=== PATIENT | male | born 1955 | race Caucasian/White ===

== ENCOUNTER → 2016-09-09 | Outpatient (CLI) | payer OTHER ==
[~2016-09-09] MED LIST: ABILIFY PO; ARIP2TAB3 PO; ASP81CT PO; ASPI-586 PO; ATOR80TA2 PO; Aspirin PO; BP MED; CEFD300C3 PO; CHOL100084 PO; CLPD75T PO; DEXL60CA5 PO; DICL75TA2 PO; DOXY-13 PO; FENO135C PO; FLC100T1 PO; FLUOXETINE HCL 20 MG; FLX20C; FOLI0.4T2 PO; FURO40TA4 PO; HCT25T PO; HYDR-3816 PO; IBUP-792 PO; KCL20TCR PO; MELO-195 PO; METH4TAB PO; METO-272 PO; METO50TA2 PO; MTF500T PO; NF-ESOM40C PO; OLAN1CAP9 PO; OMG1KC PO; PNT40TEC PO; POTA20TA15 PO; PRAV40TA PO; PRAV80TA2 PO; PROBIOTIC1 EACH PO; PROZAC; RNT150T PO; SALSALATE PO; SCR1T PO; SENN1TAB76 PO; SIMVASTATIN; TOPROL; TRAM-21 PO; TRAZ-28 PO; TRAZODONE; TRZ100T PO; TRZ50T; UBID200C2 PO; VITA-185 PO; WELLBUTRIN; [UNRECOGNIZED DRUG - OTHER]; b12; folic acid; motrin; trilipix
--- OUTSIDE RECORDS SUMMARY | 2016-09-09 12:10 | XMS REPORT | Continuity of Care Document ---
Author Author [facility] Organization [facility] Address Unknown Phone Unavailable Support Name Relationship Address Phone YISSEL SHOEMAKER FACP CCDS FACC Caregiver [address], [address] [place] [address] GARCIA RHODES DO Caregiver [address] [place] [address] GAMA ALAS Next Of Kin [address] [facility] [place] [address] Insurance Providers Payer Name Policy Number Subscriber Name Relationship [facility] [facility] [id number] Al Alas 16 Self / Same As Patient Advance Directives Directive Response Recorded Date/Time Advance Directives No 09/18/14 7:54am Health Care Power of Reinforced Concrete Inspector No 09/18/14 7:54am Organ Donor No 09/18/14 7:54am Resuscitation Status Full Code 09/18/14 7:54am Problems Medical Problems Problem Onset Date Status CAD (coronary artery disease) 09/19/2014 Active Medications Medication Dose Route Sig Days/Qty Instructions Order Date Discontinued Date Status Fluoxetine HCl 05/19/08 12/18/10 Discontinued [Fluoxetine Hcl 20MG] 05/19/08 12/18/10 Discontinued Trazodone HCl 05/19/08 12/18/10 Discontinued [Bupropine Sr 150MG] 05/19/08 12/18/10 Discontinued [Trazodone] 12/21/08 12/18/10 Discontinued [Toprol] 12/21/08 12/18/10 Discontinued [Simvastatin] 12/21/08 12/18/10 Discontinued [Prozac] 12/21/08 12/18/10 Discontinued [Wellbutrin] 12/21/08 12/18/10 Discontinued [Bp Med] 12/21/08 12/18/10 Discontinued Pravastatin Sodium 40 Mg PO BEDTIME 12/18/10 03/20/11 Discontinued Olanzapine/Fluoxetine Hcl 6 - 50 Mg PO BEDTIME 12/18/10 09/13/14 Discontinued Folic Acid 0.4 Mg PO DAILY 12/18/10 01/08/11 Discontinued Meloxicam (Mobic) 15 Mg PO DAILY 12/18/10 03/20/11 Discontinued Trazodone HCl 50 Mg PO BEDTIME 12/18/10 Active Metoprolol Succinate 50 Mg PO TWICE A DAY 12/18/10 09/13/14 Discontinued [Abilify] 2 Mg PO DAILY 12/18/10 04/29/12 Discontinued Doxycycline Hyclate 1 Each PO TWICE A DAY 20 Qty x10 days 12/23/1001/08 Discontinued Cefdinir (Omnicef) 2 Each PO DAILY 20 Qty 12/23/10 01/08/11 Discontinued Methylprednisolone 0 PO DIRECTED 12/23/10 01/08/11 Discontinued Olanzapine/Fluoxetine Hcl 1 Each PO BEDTIME 01/08/11 01/08/11 Discontinued Hydrochlorothiazide 25 Mg PO DAILY 03/13/11 Active Potassium Chloride 20 Meq PO DAILY 03/20/11 04/02/12 Discontinued [Salsalate] 1,000 Mg PO EVERY 8HRS 03/20/11 04/02/12 Discontinued Senna 2 Ea PO EVERY 12 HOURS 03/20/11 04/02/12 Discontinued [trilipix] 04/02/12 04/02/12 Discontinued [b12] 04/02/12 04/02/12 Discontinued [folic acid] 04/02/12 04/02/12 Discontinued Aspirin 81 Mg PO MONWEDFRI 04/02/12 09/19/14 Discontinued [motrin] 04/02/12 04/02/12 Discontinued Vitamin B Complex 1,000 Mcg PO DAILY 04/02/12 Active Folic Acid 400 Mcg PO BEDTIME 04/02/12 Active Ranitidine HCl 1 Tab PO DAILY 04/02/12 09/13/14 Discontinued Diclofenac Sodium 75 Mg PO TWICE A DAY 04/02/12 04/28/12 Discontinued Fenofibrate 135 Mg PO BEDTIME 04/02/12 Active Ibuprofen 1 Each PO TWICE A DAY 04/02/12 09/13/14 Discontinued Pravastatin Sodium 40 Mg PO BEDTIME 04/02/12 09/13/14 Discontinued Sucralfate 2 Tsp PO BEFORE MEALS AND AT BEDTIME 1 Qty FOR STOMACH 01/04/13 Discontinued Pantoprazole Sodium 1 Tab PO DAILY 15 Qty 04/02/12 01/04/13 Discontinued Aripiprazole 2 Mg PO DAILY 04/29/12 Active Esomeprazole Magnesium 1 Cap PO DAILY 30 Qty 04/29/12 09/13/14 Discontinued Tramadol Hcl 50 Mg PO TWICE A DAY 04/29/12 Active Dexlansoprazole 60 Mg PO TWICE A DAY 04/29/12 Active Metoprolol Tartrate 50 Mg PO TWICE A DAY 09/13/14 Active Atorvastatin Calcium 80 Mg PO BEDTIME 09/13/14 Active Metformin HCl (Glucophage) 500 Mg PO DAILY 09/13/14 Active Ubidecarenone 200 Mg PO DAILY 09/13/14 Active Cholecalciferol 1,000 Unit PO DAILY 09/13/14 Active Olanzapine/Fluoxetine Hcl 1 Each PO BEDTIME 09/13/14 Active Furosemide (Lasix) 40 Mg PO DAILY 09/13/14 Active Potassium Chloride 40 Meq PO DAILY 09/13/14 Active [Aspirin] 0 Mg PO DAILY 30 Qty 09/19/14 Active Clopidogrel Bisulfate 75 Mg PO DAILY 30 Qty 09/19/14 Active Social History Social History Problem Response Recorded Date/Time Recent Foreign Travel No 09/18/2014 7:57am Smoking Status Former Smoker 09/18/2014 7:54am Query Response Start Date Stop Date Smoking Status Former Smoker Hospital Discharge Instructions No hospital discharge instructions. Plan of Care No plan of care. Functional Status No functional status results. Allergies, Adverse Reactions, Alerts Allergen Type Severity Reaction Status Last Updated No Known Drug Allergies Active 05/19/08 [id number] (HAYFEVER) Allergy Mild Active 12/21/08 Immunizations Name Given Type Date of Pneumonia Vaccine 08/14/08 Historical Date of Influenza Vaccine 05/04/12 Historical influenza, split (incl. purified surface antigen) 09/19/14 Administered Vital Signs Acute Vital Signs Vital Response Date/Time Temperature (Fahrenheit) 97.8 degrees F (97.6 - 99.5) Temperature (Calculated Celsius) 36.26869 degrees C (36.4 - 37.5) Temperature Source Temporal Pulse Rate (adult) 77 bpm (60 - 90) Respiratory Rate 22 bpm (12 - 24) O2 Sat by Pulse Oximetry 94 % (88 - 100) Blood Pressure 137/82 mm Hg Height (Feet) 6 feet Height (Inches) 0.00 inches Height (Calculated Centimeters) 182.666962 cm Weight (Pounds) 268 pounds Weight (Calculated Grams) 517458.756 gm Weight (Calculated Kilograms) 121.891498 kilograms Calculated BMI 36.34 Results Laboratory Results Test Name Result Units Flags Reference Collection Date/Time Result Date/ Time Comments White Blood Count 6.5 10^3/uL 4.3-11.0 09/04/2014 6:48am 09/04/2014 6: 54am Red Blood Count 5.26 10^6/uL 4.35-5.85 09/04/2014 6:48am 09/04/2014 6: 54am Hemoglobin 15.5 G/DL 13.3-17.7 09/04/2014 6:48am 09/04/2014 6:54am Hematocrit 45 % 40-54 09/04/2014 6:48am 09/04/2014 6:54am Mean Corpuscular Volume 86 FL 80-99 09/04/2014 6:48am 09/04/2014 6: 54am Mean Corpuscular Hemoglobin 30 PG 25-34 09/04/2014 6:48am 09/04/2014 6: 54am Mean Corpuscular Hemoglobin Concent 34 G/DL 32-36 09/04/2014 6:48am 04/2015 6:54am Red Cell Distribution Width 13.0 % 10.0-14.5 09/04/2014 6:48am 2014 6:54am Platelet Count 237 10^3/uL 130-400 09/04/2014 6:48am 09/04/2014 6:54am Mean Platelet Volume 8.8 FL 7.4-10.4 09/04/2014 6:48am 09/04/2014 6: 54am Neutrophils (%) (Auto) 64 % 42-75 09/04/2014 6:48am 09/04/2014 6:54am Lymphocytes (%) (Auto) 25 % 12-44 09/04/2014 6:48am 09/04/2014 6:54am Monocytes (%) (Auto) 8 % 0-12 09/04/2014 6:48am 09/04/2014 6:54am Eosinophils (%) (Auto) 2 % 0-10 09/04/2014 6:48am 09/04/2014 6:54am Basophils (%) (Auto) 1 % 0-10 09/04/2014 6:48am 09/04/2014 6:54am Neutrophils # (Auto) 4.1 X 10^3 1.8-7.8 09/04/2014 6:48am 09/04/2014 6: 54am Lymphocytes # (Auto) 1.6 X 10^3 1.0-4.0 09/04/2014 6:48am 09/04/2014 6: 54am Monocytes # (Auto) 0.5 X 10^3 0.0-1.0 09/04/2014 6:48am 09/04/2014 6: 54am Eosinophils # (Auto) 0.1 10^3/uL 0.0-0.3 09/04/2014 6:48am 09/04/2014 6 :54am Basophils # (Auto) 0.0 10^3/uL 0.0-0.1 09/04/2014 6:48am 09/04/2014 6: 54am Sodium Level 139 MMOL/L 135-145 09/04/2014 6:48am 09/04/2014 7:13am Potassium Level 3.9 MMOL/L 3.6-5.0 09/04/2014 6:48am 09/04/2014 7:13am Chloride Level 104 MMOL/L 98-107 09/04/2014 6:48am 09/04/2014 7:13am Carbon Dioxide Level 22 MMOL/L 21-32 09/04/2014 6:48am 09/04/2014 7: 13am Blood Urea Nitrogen 11 MG/DL 7-18 09/04/2014 6:48am 09/04/2014 7:13am Creatinine 1.16 MG/DL 0.60-1.30 09/04/2014 6:48am 09/04/2014 7:13am BUN/Creatinine Ratio 9 09/04/2014 6:48am 09/04/2014 7:13am Estimat Glomerular Filtration Rate > 60 09/04/2014 6:48am 2014 7:13am GFR INTERPRETIVE DATA UNITS FOR ESTIMATED GFR (eGFR): mL/min/1.73 M2 REFERENCE RANGE FOR ESTIMATED GFR (eGFR) eGFR NORMAL eGFR >60 MODERATELY DECREASED eGFR 30-59 SEVERLY DECREASED eGFR 15-29 KIDNEY FAILURE <15 (OR DIALYSIS) Glucose Level 155 MG/DL H 70-105 09/04/2014 6:48am 09/04/2014 7:13am Calcium Level 9.6 MG/DL 8.5-10.1 09/04/2014 6:48am 09/04/2014 7:13am Total Bilirubin 0.4 MG/DL 0.1-1.0 09/04/2014 6:48am 09/04/2014 7:13am Alkaline Phosphatase 63 U/L 40-136 09/04/2014 6:48am 09/04/2014 7:13am Aspartate Amino Transf (AST/SGOT) 25 U/L 5-34 09/04/2014 6:48am 2014 7:13am Alanine Aminotransferase (ALT/SGPT) 28 U/L 0-55 09/04/2014 6:48am 09/04 7:13am Total Protein 7.1 G/DL 6.4-8.2 09/04/2014 6:48am 09/04/2014 7:13am Albumin 3.9 G/DL 3.2-4.5 09/04/2014 6:48am 09/04/2014 7:13am Triglycerides Level 569 MG/DL H <150 09/04/2014 6:48am 09/04/2014 7:13am Cholesterol Level 208 MG/DL H < 200 09/04/2014 6:48am 09/04/2014 7:13am HDL Cholesterol 31 MG/DL L 40-60 09/04/2014 6:48am 09/04/2014 7:13am LDL Cholesterol Direct 107 MG/DL 1-129 09/04/2014 6:48am 09/04/2014 7: 13am VLDL Cholesterol 114 MG/DL H 5-40 09/04/2014 6:48am 09/04/2014 7:13am Thyroid Stimulating Hormone (TSH) 4.00 UIU/ML 0.35-4.94 09/04/2014 6: 48am 09/04/2014 7:33am Free Thyroxine 0.90 NG/DL 0.70-1.48 09/04/2014 6:48am 09/04/2014 7: 33am Hemoglobin A1c 6.3 % H 4.5-6.2 09/04/2014 6:48am 09/04/2014 7:31am Sodium Level 138 MMOL/L 135-145 09/13/2014 7:09/13/2014 7:51am Potassium Level 4.0 MMOL/L 3.6-5.0 09/13/2014 7:09/13/2014 7:51am Chloride Level 100 MMOL/L 98-107 09/13/2014 7:09/13/2014 7:51am Carbon Dioxide Level 25 MMOL/L 21-32 09/13/2014 7:09/13/2014 7: 51am Blood Urea Nitrogen 8 MG/DL 02-0909/13/2014 7:09/13/2014 7:51am Creatinine 1.37 MG/DL H 0.60-1.30 09/13/2014 7:09/13/2014 7:51am BUN/Creatinine Ratio 6 09/13/2014 7:09/13/2014 7:51am Estimat Glomerular Filtration Rate 53 09/13/2014 7:09/13/2014 7:51am GFR INTERPRETIVE DATA UNITS FOR ESTIMATED GFR (eGFR): mL/min/1.73 M2 REFERENCE RANGE FOR ESTIMATED GFR (eGFR) eGFR NORMAL eGFR >60 MODERATELY DECREASED eGFR 30-59 SEVERLY DECREASED eGFR 15-29 KIDNEY FAILURE <15 (OR DIALYSIS) Glucose Level 134 MG/DL H 70-105 09/13/2014 7:09/13/2014 7:51am Calcium Level 9.3 MG/DL 8.5-10.1 09/13/2014 7:09/13/2014 7:51am Total Bilirubin 0.7 MG/DL 0.1-1.0 09/13/2014 7:09/13/2014 7:51am Alkaline Phosphatase 69 U/L 40-136 09/13/2014 7:09/13/2014 7:51am Aspartate Amino Transf (AST/SGOT) 37 U/L H 5-34 09/13/2014 7:2014 7:51am Alanine Aminotransferase (ALT/SGPT) 41 U/L 0-55 09/13/2014 7:09/13 7:51am Total Protein 7.0 G/DL 6.4-8.2 09/13/2014 7:09/13/2014 7:51am Albumin 3.9 G/DL 3.2-4.5 09/13/2014 7:21am 09/13/2014 7:51am White Blood Count 6.1 10^3/uL 4.3-11.0 09/19/2014 4:35am 09/19/2014 4: 53am Red Blood Count 4.67 10^6/uL 4.35-5.85 09/19/2014 4:35am 09/19/2014 4: 53am Hemoglobin 13.7 G/DL 13.3-17.7 09/19/2014 4:35am 09/19/2014 4:53am Hematocrit 41 % 40-54 09/19/2014 4:35am 09/19/2014 4:53am Mean Corpuscular Volume 88 FL 80-99 09/19/2014 4:35am 09/19/2014 4: 53am Mean Corpuscular Hemoglobin 29 PG 25-34 09/19/2014 4:35am 09/19/2014 4: 53am Mean Corpuscular Hemoglobin Concent 33 G/DL 32-36 09/19/2014 4:35am 4:53am Red Cell Distribution Width 13.1 % 10.0-14.5 09/19/2014 4:35am 2014 4:53am Platelet Count 188 10^3/uL 130-400 09/19/2014 4:35am 09/19/2014 4:53am Mean Platelet Volume 9.1 FL 7.4-10.4 09/19/2014 4:35am 09/19/2014 4: 53am Neutrophils (%) (Auto) 72 % 42-75 09/18/2014 7:56am 09/18/2014 8:06am Lymphocytes (%) (Auto) 19 % 12-44 09/18/2014 7:56am 09/18/2014 8:06am Monocytes (%) (Auto) 7 % 0-12 09/18/2014 7:56am 09/18/2014 8:06am Eosinophils (%) (Auto) 1 % 0-10 09/18/2014 7:56am 09/18/2014 8:06am Basophils (%) (Auto) 1 % 0-10 09/18/2014 7:56am 09/18/2014 8:06am Neutrophils # (Auto) 6.2 X 10^3 1.8-7.8 09/18/2014 7:56am 09/18/2014 8: 06am Lymphocytes # (Auto) 1.6 X 10^3 1.0-4.0 09/18/2014 7:56am 09/18/2014 8: 06am Monocytes # (Auto) 0.6 X 10^3 0.0-1.0 09/18/2014 7:56am 09/18/2014 8: 06am Eosinophils # (Auto) 0.1 10^3/uL 0.0-0.3 09/18/2014 7:56am 09/18/2014 8 :06am Basophils # (Auto) 0.0 10^3/uL 0.0-0.1 09/18/2014 7:56am 09/18/2014 8: 06am Prothrombin Time 12.5 SEC 12.2-14.7 09/18/2014 7:56am 09/18/2014 8: 22am INR Comment 1.0 0.8-1.4 09/18/2014 7:56am 09/18/2014 8:22am INTERPRETIVE DATA SUGGESTED THERAPEUTIC RANGE FOR INR'S: VENOUS THROMBOSIS, PULMONARY EMBOLISM, OR PREVENTION OF SYSTEMIC EMBOLISM (EG. IN ATRIAL FIBRILLATION): 2.0 - 3.0 MECHANICAL PROSTHETIC HEART VALVES: 2.5 - 3.5* *NOTE: INR'S UP TO 4.5 MAY BE NECESSARY IN SELECTED GROUPS OF HIGH RISK PATIENTS. SIXTH [place] COLLEGE OF CHEST PHYSICIANS CONSENSUS CONFERENCE ON ANTITHROMBOTIC THERAPY (2000). Activated Partial Thromboplast Time 25 SEC 24-35 09/18/2014 7:56am 8:22am Sodium Level 140 MMOL/L 135-145 09/19/2014 4:35am 09/19/2014 5:13am Potassium Level 4.3 MMOL/L 3.6-5.0 09/19/2014 4:35am 09/19/2014 5:13am Chloride Level 106 MMOL/L 98-107 09/19/2014 4:35am 09/19/2014 5:13am Carbon Dioxide Level 25 MMOL/L 21-32 09/19/2014 4:35am 09/19/2014 5: 13am Blood Urea Nitrogen 12 MG/DL 7-18 09/19/2014 4:35am 09/19/2014 5:13am Creatinine 1.31 MG/DL H 0.60-1.30 09/19/2014 4:35am 09/19/2014 5:13am BUN/Creatinine Ratio 9 09/19/2014 4:35am 09/19/2014 5:13am Estimat Glomerular Filtration Rate 56 09/19/2014 4:35am 09/19/2014 5:13am GFR INTERPRETIVE DATA UNITS FOR ESTIMATED GFR (eGFR): mL/min/1.73 M2 REFERENCE RANGE FOR ESTIMATED GFR (eGFR) eGFR NORMAL eGFR >60 MODERATELY DECREASED eGFR 30-59 SEVERLY DECREASED eGFR 15-29 KIDNEY FAILURE <15 (OR DIALYSIS) Glucose Level 125 MG/DL H 70-105 09/19/2014 4:35am 09/19/2014 5:13am Calcium Level 9.0 MG/DL 8.5-10.1 09/19/2014 4:35am 09/19/2014 5:13am Total Bilirubin 0.7 MG/DL 0.1-1.0 09/18/2014 7:56am 09/18/2014 8:26am Alkaline Phosphatase 67 U/L 40-136 09/18/2014 7:56am 09/18/2014 8:26am Aspartate Amino Transf (AST/SGOT) 24 U/L 5-34 09/18/2014 7:56am 2014 8:26am Alanine Aminotransferase (ALT/SGPT) 29 U/L 0-55 09/18/2014 7:56am 09/18 8:26am Total Protein 7.2 G/DL 6.4-8.2 09/18/2014 7:56am 09/18/2014 8:26am Albumin 4.0 G/DL 3.2-4.5 09/18/2014 7:56am 09/18/2014 8:26am Triglycerides Level 376 MG/DL H <150 09/18/2014 7:56am 09/18/2014 8:26am Cholesterol Level 205 MG/DL H < 200 09/18/2014 7:56am 09/18/2014 8:26am HDL Cholesterol 33 MG/DL L 40-60 09/18/2014 7:56am 09/18/2014 8:26am LDL Cholesterol Direct 115 MG/DL 1-129 09/18/2014 7:56am 09/18/2014 8: 26am VLDL Cholesterol 75 MG/DL H 5-40 09/18/2014 7:56am 09/18/2014 8:26am Procedures Procedure Status Date Provider(s) Limited Doppler echocardiography completed 09/13/14 [facility] Doppler echocardiography color flow mapping completed 09/13/14 YISSEL SHOEMAKER MD, FACP [facility] CCDS Transesophageal echocardiography with contrast completed 09/13/14 [facility] Tracing only of electrocardiogram completed 09/18/14 YISSEL SHOEMAKER MD, FACP [facility] CCDS Tracing only of electrocardiogram completed 09/18/14 YISSEL SHOEMAKER MD [facility] CCDS Encounters Encounter Location Date/Time Departed [facility] 09/18/14 7:31am Registered [facility] 09/13/14 7:04am Registered Clinic [facility] 09/04/14 6:36am Recent Diagnosis CAD (coronary artery disease)
[2016-09-10 06:51] LABS: MICROALBUMIN/CREATININE RATIO 9.8 mg/gCR (0.0-30.0)
== END ==
LOC: LAB 12:06
PROVIDERS: ATTEND Family Medicine
DX: E11.65 Type 2 diabetes mellitus with hyperglycemia (principal); M10.9 Gout, unspecified
CPT/HCPCS: 36415; 82043; 83036; 84550

== ENCOUNTER → 2016-09-15 | Outpatient (CLI) | payer OTHER ==
--- OUTSIDE RECORDS SUMMARY | 2016-09-15 13:37 | XMS REPORT | Continuity of Care Document ---
Author Author [facility] Organization [facility] Address Unknown Phone Unavailable Support Name Relationship Address Phone YISSEL SHOEMAKER FACP CCDS FACC Caregiver [address], [address] [place] [address] GARCIA RHODES DO Caregiver [address] [place] [address] GAMA ALAS Next Of Kin [address] [place] [address] Insurance Providers Payer Name Policy Number Subscriber Name Relationship [employer] [facility] [id number] Al Alas 16 Self / Same As Patient Advance Directives Directive Response Recorded Date/Time Advance Directives No 09/18/14 7:54am Health Care Power of Making Machine Catcher No 09/18/14 7:54am Organ Donor No 09/18/14 [...] Updated No Known Drug Allergies Active 05/19/08 [id number] (HAYFEVER) Allergy Mild Active 12/21/08 Immunizations Name Given Type Date of Pneumonia Vaccine 08/14/08 Historical Date of Influenza Vaccine 05/04/12 Historical influenza, split (incl. purified surface antigen) 09/19/14 Administered Vital Signs Acute Vital Signs Vital Response Date/Time Temperature (Fahrenheit) 97.8 degrees F (97.6 - 99.5) Temperature (Calculated Celsius) 36.97970 degrees C (36.4 - 37.5) Temperature Source Temporal Pulse Rate (adult) 77 bpm (60 - 90) Respiratory Rate 22 bpm (12 - 24) O2 Sat by Pulse Oximetry 94 % (88 - 100) Blood Pressure 137/82 mm Hg Height (Feet) 6 feet Height (Inches) 0.00 inches Height (Calculated Centimeters) 182.457744 cm Weight (Pounds) 268 pounds Weight (Calculated Grams) 572445.756 gm Weight (Calculated Kilograms) 121.008058 kilograms Calculated BMI 36.34 Results Laboratory Results [...] SELECTED GROUPS OF HIGH RISK PATIENTS. SIXTH [place] COL[employer] OF CHEST PHYSICIANS CONSENSUS CONFERENCE ON [...] Limited Doppler echocardiography [facility]/13[facility] Doppler [facility] color flow mapping completed 09/13/14 YISSEL SHOEMAKER MD, FACP [facility] CCDS Transesophageal echocardiography with contrast completed 09/13/14 [facility] Tracing only of electrocardiogram completed 09/18/14 YISSEL SHOEMAKER MD, FACP [facility] CCDS Tracing only of electrocardiogram completed 09/18/14 YISSEL SHOEMAKER MD [facility] CCDS Encounters Encounter Location Date/Time Departed Surgical Day [facility] 09/18/14 7:31am Registered Surgical Day [facility] 09/13/14 7:04am Registered Clinic [facility] 09/04/14 6:36am Recent Diagnosis CAD (coronary artery disease)
--- NOTE | 2016-09-16 10:27 | ECHOCARDIOGRAPHY REPORT ---
PROCEDURE PHYSICIAN: YISSEL SHOEMAKER DATE OF PROCEDURE: 09/15/2016 TWO DIMENSIONAL ECHOCARDIOGRAM REPORT PRIMARY PHYSICIAN: Dr. Moreno OTHER PHYSICIAN: REFERRING PHYSICIAN: ORDERING PHYSICIAN: Criselda Gandhi APRN INDICATION FOR THE PROCEDURE: 1. Coronary artery disease. 2. Hypertension. 3. Hyperlipidemia. 4. Patent foramen ovale. MEASUREMENTS DERIVED VALUES LV DIAMETER (LAX) NORMALS NORMALS Diastolic 4.5 (3.6-5.2) Eject. Fract. (60%+/-6%) Systolic (2.3-3.9) Diastolic Vol. % Shortening (0.22-0.42) Systolic Vol. Aortic Root 4 IVS THICKNESS Diastolic 1 (0.6-1.1) LVPW THICKNESS Diastolic 1 (0.6-1.1) LA DIAMETER Systolic 3.5 (2.1-3.7) DESCRIPTION: Two-dimensional echocardiography showed normal global left ventricular systolic function with normal regional wall motion. Aortic, mitral and tricuspid valve leaflets show good leaflet excursion. Doppler imaging shows no evidence of any significant valvular regurgitation. Only trivial mitral and tricuspid regurgitation are seen. There is no Doppler evidence of significant valvular stenosis. There is trivial aortic regurgitation. Pulmonary artery systolic pressure could not be reliably estimated on this study. Good subcostal views are not available and the study is not sufficient for evaluation for intracardiac shunt or patent foramen ovale. CONCLUSIONS: 1. Technically difficult study. 2. Normal global left ventricular systolic function with an ejection fraction of approximately 60%. 3. Trivial aortic, mitral and tricuspid regurgitation. 4. No evidence of significant valvular stenosis. 5. Although the patient has a history of a small patent foramen ovale, it is not seen on this study, given the difficult nature of the study and lack of adequate subcostal views. Job ID: [id number] Dictated Date: 09/15/2016 17:28:04 Rolfer Date: 09/16/2016 10:01:12 / isabel
== END ==
LOC: CARD 12:38
PROVIDERS: ATTEND Nurse Practitioner Family
DX: Q21.1 Atrial septal defect (principal); I25.10 Atherosclerotic heart disease of native coronary artery without angina pectoris; I65.23 Occlusion and stenosis of bilateral carotid arteries; I10 Essential (primary) hypertension; E78.4 Other hyperlipidemia
CPT/HCPCS: 93306

== ENCOUNTER → 2016-11-03 | Outpatient (CLI) | payer OTHER ==
[2016-11-03 07:29] LABS: ALANINE AMINOTRANSFERASE 24 U/L (0-55); ALBUMIN 4.1 G/DL (3.2-4.5); ANION GAP 14 MMOL/L (5-14); ASPARTATE AMINO TRANSFERASE 20 U/L (5-34); BILIRUBIN,TOTAL 0.5 MG/DL (0.1-1.0); BLOOD UREA NITROGEN 11 MG/DL (7-18); BUN/CREATININE RATIO 9; CALCIUM 9.5 MG/DL (8.5-10.1); CARBON DIOXIDE 21 MMOL/L (21-32); CHLORIDE 103 MMOL/L (98-107); CREATININE SERUM 1.21 MG/DL (0.60-1.30); GFR ESTIMATED > 60; GLUCOSE 161 MG/DL (70-105); SODIUM 138 MMOL/L (135-145)
== END ==
LOC: LAB 06:59
PROVIDERS: ATTEND Family Medicine
DX: E11.65 Type 2 diabetes mellitus with hyperglycemia (principal)
CPT/HCPCS: 36415; 80053; 83036

== ENCOUNTER → 2017-03-09 | Outpatient (CLI) | payer OTHER ==
[2017-03-09 07:52] LABS: BILIRUBIN,TOTAL 0.7 MG/DL (0.1-1.0); CALCIUM 10.3 MG/DL (8.5-10.1); CREATININE SERUM 1.29 MG/DL (0.60-1.30); POTASSIUM 4.2 MMOL/L (3.6-5.0); TOTAL PROTEIN 6.7 GM/DL (6.4-8.2)
== END ==
LOC: LAB 07:14
PROVIDERS: ATTEND Family Medicine
DX: E11.65 Type 2 diabetes mellitus with hyperglycemia (principal)
CPT/HCPCS: 36415; 80053; 83036

== ENCOUNTER → 2017-06-16 | Outpatient (CLI) | payer OTHER ==
[2017-06-16 07:21] LABS: BASOPHILS % (AUTO) 0 % (0-10); EOSINOPHILS # (AUTO) 0.2 10^3/uL (0.0-0.3); EOSINOPHILS % (AUTO) 2 % (0-10); LYMPHOCYTES # (AUTO) 1.8 X 10^3 (1.0-4.0); LYMPHOCYTES % (AUTO) 24 % (12-44); MEAN CORPUSCULAR HEMOGLOBIN 29 PG (25-34); MEAN CORPUSCULAR HGB CONC 33 G/DL (32-36); MEAN CORPUSCULAR VOLUME 86 FL (80-99); MEAN PLATELET VOLUME 8.7 FL (7.4-10.4); MONOCYTES # (AUTO) 0.5 X 10^3 (0.0-1.0); MONOCYTES % (AUTO) 6 % (0-12); NEUTROPHILS # (AUTO) 5.1 X 10^3 (1.8-7.8); NEUTROPHILS % (AUTO) 68 % (42-75); PLATELET COUNT 223 10^3/uL (130-400); RED CELL DISTRIBUTION WIDTH 13.7 % (10.0-14.5); WHITE BLOOD COUNT 7.6 10^3/uL (4.3-11.0)
[2017-06-16 07:47] LABS: ALANINE AMINOTRANSFERASE 25 U/L (0-55); ALBUMIN 4.1 GM/DL (3.2-4.5); ANION GAP 11 MMOL/L (5-14); ASPARTATE AMINO TRANSFERASE 21 U/L (5-34); BILIRUBIN,TOTAL 0.6 MG/DL (0.1-1.0); BLOOD UREA NITROGEN 14 MG/DL (7-18); BUN/CREATININE RATIO 10; CALCIUM 9.6 MG/DL (8.5-10.1); CARBON DIOXIDE 26 MMOL/L (21-32); CHLORIDE 103 MMOL/L (98-107); CHOLESTEROL 223 MG/DL (< 200); CREATININE SERUM 1.37 MG/DL (0.60-1.30); DIRECT LDL 126 MG/DL (1-129); GFR ESTIMATED 52; GLUCOSE 120 MG/DL (70-105); POTASSIUM 4.1 MMOL/L (3.6-5.0); SODIUM 140 MMOL/L (135-145); TOTAL PROTEIN 7.1 GM/DL (6.4-8.2); TRIGLYCERIDES 443 MG/DL (<150); URIC ACID 7.2 MG/DL (2.6-7.2)
[2017-06-16 08:07] LABS: THYROID STIMULATING HORMONE 3.23 UIU/ML (0.35-4.94)
== END ==
LOC: LAB 07:08
PROVIDERS: ATTEND Family Medicine
DX: E11.9 Type 2 diabetes mellitus without complications (principal); E78.2 Mixed hyperlipidemia; M10.9 Gout, unspecified
CPT/HCPCS: 36415; 80053; 80061; 83036; 84443; 84550; 85025

== ENCOUNTER → 2017-06-22 | Outpatient (CLI) | payer OTHER ==
[~2017-06-22] MED LIST changes: +CATHETER FLUSH 10 ML SYR IV PRN; +IOHEXOL 350 MG/ML 100 ML (OMNIPAQUE 350) VIAL IV ONE; +NS 100 ML (IVPB) BAG IV ONE
--- NOTE | 2017-06-22 13:23 | Diagnostic Imaging Report ---
PROCEDURE: CT abdomen and pelvis with contrast. TECHNIQUE: Multiple contiguous axial images were obtained through the abdomen and pelvis after administration of intravenous contrast. INDICATION: Right lower greater than left lower quadrant pain. Exam compared 04/02/2012. FINDINGS: An umbilical hernia is comprised solely of omental fat with fatty sac measuring a maximal transverse diameter 3.6 cm. The neck of the defect measuring 9 mm. Fat within the hernia sac shows some mild increased density and induration. No herniated viscus. There is no abdominal wall fluid collection and no other abdominal wall defect. There is a small hiatal hernia. There is mild fatty infiltration of the liver. The gallbladder, spleen, adrenals and pancreas were unremarkable. Unobstructed kidneys appeared normal. There is no mesenteric or retroperitoneal lymphadenopathy. The osseous structures nonacute. Prostate, seminal vesicles and urinary bladder unremarkable. IMPRESSION: Midline ventral fatty umbilical hernia. The fat within the hernia sac shows some mild induration and inflammation. No herniated viscus. There is a fatty liver with no bowel, biliary or urinary tract obstruction. There is a small hiatal hernia. No other significant finding. Dictated by: Dictated on workstation # [id number]
== END ==
LOC: RAD 12:36
PROVIDERS: ATTEND Family Medicine
DX: K42.9 Umbilical hernia without obstruction or gangrene (principal); K76.0 Fatty (change of) liver, not elsewhere classified; K44.9 Diaphragmatic hernia without obstruction or gangrene
CPT/HCPCS: 74177

== ENCOUNTER → 2017-07-02 | Outpatient (CLI) | payer OTHER ==
[~2017-07-02] VITALS: Ht 182.9 cm; Wt 117.9 kg
[~2017-07-02] MED LIST changes: +ALLO100T PO; +ARIP2TAB11 PO; +ATOR80TA76 PO; +CHOL10003 PO; +CYAN100088 PO; +FLUO40CA PO; -IOHEXOL 350 MG/ML 100 ML (OMNIPAQUE 350) VIAL IV ONE; +METF500T4 PO; +METO50TA15 PO; -NS 100 ML (IVPB) BAG IV ONE; +REGADENOSON 0.4 MG/5 ML SYR (LEXISCAN) IV ONE; +TRAM50TA2 PO; +UBID200C36 PO
[2017-07-02 09:39] VITALS: BP 196/101
[2017-07-02 09:42] VITALS: BP 185/89
[2017-07-02 09:45] VITALS: BP 185/97
--- NOTE | 2017-07-05 15:20 | STRESS TEST ---
DATE OF SERVICE: 07/02/2017 RESTING AND POST REGADENOSON TECHNETIUM 99M TETROFOSMIN SPECT CT IMAGING ORDERING PHYSICIAN: Criselda Gandhi APRN PRIMARY PHYSICIAN: Dr. Alia Moreno. CLINICAL DIAGNOSES: Coronary artery disease. Baseline images were carried out after injection of 10.68 mCi technetium-99M Tetrofosmin. This was followed by 0.4 mg regadenoson and 31.6 mCi of technetium-99M Tetrofosmin for stress imaging. The electrocardiogram showed sinus rhythm with voltage for left ventricular hypertrophy. The electrocardiogram did not change significantly with the regadenoson infusion. Review of images at rest and following stress does not indicate significant perfusion defects consistent with significant myocardial ischemia or infarction. Gated images show normal global left ventricular systolic function with normal regional wall motion. Left ventricular ejection fraction is calculated to be 55%. Left ventricular end diastolic volume is 114 mL. TID is absent (1.09). CONCLUSIONS: 1. No evidence of significant myocardial ischemia or infarction on this study. 2. Normal regional wall motion. 3. Normal global left ventricular systolic function with a calculated ejection fraction of 55%. Job ID: [id number] DocumentID: [id number] Dictated Date: 07/05/2017 09:03:26 Refrigerator Mover Date: 07/05/2017 09:44:31 Dictated By: YISSEL SHOEMAKER MD, MA, FACP, FACC,
== END ==
LOC: CARD 08:01
PROVIDERS: ATTEND Nurse Practitioner Family
DX: I25.10 Atherosclerotic heart disease of native coronary artery without angina pectoris (principal); I10 Essential (primary) hypertension; E78.4 Other hyperlipidemia; I65.23 Occlusion and stenosis of bilateral carotid arteries
CPT/HCPCS: 78452; 93017

== ENCOUNTER 2017-07-05 05:34 | Outpatient (CLI) | payer OTHER ==
[~2017-07-05] VITALS: Ht 182.9 cm; Wt 117.9 kg
[~2017-07-05 05:34] MED LIST changes: -ALLO100T PO; -ARIP2TAB11 PO; -ATOR80TA76 PO; -CATHETER FLUSH 10 ML SYR IV PRN; -CHOL10003 PO; -CYAN100088 PO; -FLUO40CA PO; -METF500T4 PO; -METO50TA15 PO; -REGADENOSON 0.4 MG/5 ML SYR (LEXISCAN) IV ONE; -TRAM50TA2 PO; -UBID200C36 PO
[2017-07-05] MEDS ORDERED: CHOL10003 PO (10:37)
[2017-07-05] MEDS ORDERED: CYAN100088 PO (10:37)
[2017-07-05] MEDS ORDERED: UBID200C36 PO (10:37)
[2017-07-05] MEDS ORDERED: ATOR80TA76 PO (10:37)
[2017-07-05] MEDS ORDERED: TRAM50TA2 PO (10:37)
[2017-07-05] MEDS ORDERED: POTA20TA15 PO (10:37)
[2017-07-05] MEDS ORDERED: FURO40TA4 PO (10:37)
[2017-07-05] MEDS ORDERED: FENO135C PO (10:37)
[2017-07-05] MEDS ORDERED: METF500T4 PO (10:37)
[2017-07-05] MEDS ORDERED: FOLI0.4T2 PO (10:37)
[2017-07-05] MEDS ORDERED: METO50TA15 PO (10:37)
[2017-07-05] MEDS ORDERED: ARIP2TAB11 PO (10:37)
[2017-07-05] MEDS ORDERED: NF-ESOM40C PO (10:38)
[2017-07-05] MEDS ORDERED: FLUO40CA PO (10:38)
[2017-07-05] MEDS ORDERED: ALLO100T PO (10:38)
== END 2017-07-05 10:44 ==
LOC: PREOP 05:34
PROVIDERS: ATTEND Surgery
DX: Z01.818 Encounter for other preprocedural examination (principal); K22.70 Barrett's esophagus without dysplasia; Z86.010 Personal history of colon polyps

== ENCOUNTER 2017-07-06 05:40 | Outpatient (CLI) | payer OTHER ==
[~2017-07-06] VITALS: Ht 182.9 cm; Wt 117.9 kg
[~2017-07-06 05:40] MED LIST changes: -ACETAMINOPHEN 500 MG TAB (TYLENOL) PO ONE; -CELECOXIB 100 MG (CeleBREX) CAP PO ONE; -FAMOTIDINE 20MG/2ML IV (PEPCID) IV ONE; -HURRICAINE EXT TUBE (BENZOCAINE) ONE; -HURRICAINE EXT TUBE (BENZOCAINE) XX PRN; -HYDR-3812 PO; -KETOROLAC 30 MG/ML VIAL IV SCH; -LACTATED RINGERS 1,000 ML IV PRN; -MIDAZOLAM 2 MG/2 ML (VERSED) VIAL ONE; -NS IV 500 ML 500 ML IV PRN; -PREGABALIN 75 MG (LYRICA) CAP PO ONE; -ceFAZolin 2 GM/50 ML NS 50 ML IV ONE; -fentaNYL INJECTION 100 MCG/2 ML AMP ONE; -morphine INJ 10 MG/ML 1ML (SYR OR VIAL) IV PRN; -oxyCODONE ER 10 MG (OxyCONTIN CR) TAB PO ONE
--- NOTE | 2017-07-06 15:43 | Conscious Sedation/ASA ---
Conscious Sedation Pre-Proced Time Reviewed: 15:43 ASA Class: 2 Airway Mallampati Classification: (red devil appropriate class) I. II. III, IV Lungs Heart ASA score ASA 1: a normal healthy patient ASA 2: a patient with a mild systemic disease (mid diabetes, controlled hypertension, obesity ASA 3: a patient with a severe systemic disease that limits activity (angina , COPD, prior Myocardial infarction) ASA 4: a patient with an incapacitating disease that is a constant threat to life (CHF, renal failure) ASA 5: a moribund patient not expected to survive 24 hrs. (ruptured aneurysm) ASA 6: a declared brain patient whose organs are being harvested. For emergent operations, add the letter E after the classification Grade 2 Sedation Plan: Discussed options with patient/fam Note The patient is an appropriate candidate to undergo the planned procedure, sedation, and anesthesia. The patient immediately re-assessed prior to indication. REECE MATOS MD Jul 06, 2017 3:43 pm
--- NOTE | 2017-07-06 17:33 | Endo Procedure Record ---
Endo Procedure Report Date of Procedure Jul 06, 2017 Surgeon (s) REECE MATOS MD Post Procedure/Op Diagnosis EGD: Changes of Larios's from 27 cm and works No recurrent polyps and colonoscopy Procedure Performed EGD with biopsy of gastroesophageal junction Colonoscopy to cecum Description of Procedure Anesthesia Type: Conscious Sedation Specimen(s) collected/removed tissue from gastroesophageal junction Description of the Procedure indication for the procedures: This gentleman came in for an endoscopic surveillance of Larios's esophagitis and surveillance colonoscopy. Informed consent was obtained after reviewing the procedures in detail. Description of the procedures. EGD/biopsy: He was placed in left lateral decubitus position and his vital signs were monitored. Conscious sedation was achieved using Versed and fentanyl. The flexible gastroscope was introduced down the esophagus, past the stomach, into the proximal duodenum. Findings Esophagus: Strips and islands of gastric mucosa creeping up the distal esophagus up to 20 cm from the incisor teeth. Photodocumentation and 4 quadrant biopsies for dysplasia were obtained. stomach and duodenum were normal. He tolerated the procedure well and was turned around in preparation for colonoscopy. Impression: Barretts esophagitis. Biopsy for dysplasia pending. Colonoscopy: Digital rectal examination was unremarkable. The colonoscope was then introduced into the rectum and advanced all the way up to the cecum. There was some redundancy of the colon making the examination slightly difficult. The scope was then withdrawn slowly and the mucosa examined in a systematic fashion. There was no recurrence of his polyps. He tolerated the procedures well and was taken back to the nursing area in a stable condition. Impression: Polyp surveillance. No recurrence. Recommend repeating in 5 years. Copies To: GARCIA RHODES XAVIER M MD Jul 06, 2017 5:33 pm
--- NOTE | 2017-07-06 17:34 | Discharge Inst-Simple/Standard ---
Discharge Inst-Standard Discharge Medications New, Converted or Re-Newed RX: Other Patient Instructions/Follow Up Plan of Care/Instructions/FU: to return for hernia surgery as scheduled. Repeat colonoscopy in 5 years. Repeat EGD in 2 years Activity as Tolerated: Yes Discharge Diet: No Restrictions REECE MATOS MD Jul 06, 2017 5:34 pm
== END 2017-07-06 14:09 ==
LOC: PREOP 05:40
PROVIDERS: ATTEND Surgery
DX: Z01.818 Encounter for other preprocedural examination (principal); Z11.2 Encounter for screening for other bacterial diseases; K43.9 Ventral hernia without obstruction or gangrene
CPT/HCPCS: 87081

== ENCOUNTER → 2017-07-06 | Day surgery (SDC) | payer OTHER ==
[~2017-07-06] VITALS: Ht 182.9 cm; Wt 117.9 kg
[~2017-07-06] MED LIST changes: +ACETAMINOPHEN 500 MG TAB (TYLENOL) PO ONE; +ALLO100T PO; +ARIP2TAB11 PO; +ATOR80TA76 PO; +CELECOXIB 100 MG (CeleBREX) CAP PO ONE; +CHOL10003 PO; +CYAN100088 PO; +FAMOTIDINE 20MG/2ML IV (PEPCID) IV ONE; +FLUO40CA PO; +HURRICAINE EXT TUBE (BENZOCAINE) ONE; +HURRICAINE EXT TUBE (BENZOCAINE) XX PRN; +HYDR-3812 PO; +KETOROLAC 30 MG/ML VIAL IV SCH; +LACTATED RINGERS 1,000 ML IV PRN; +METF500T4 PO; +METO50TA15 PO; +MIDAZOLAM 2 MG/2 ML (VERSED) VIAL ONE; +NS IV 500 ML 500 ML IV PRN; +PREGABALIN 75 MG (LYRICA) CAP PO ONE; +TRAM50TA2 PO; +UBID200C36 PO; +ceFAZolin 2 GM/50 ML NS 50 ML IV ONE; +fentaNYL INJECTION 100 MCG/2 ML AMP ONE; +morphine INJ 10 MG/ML 1ML (SYR OR VIAL) IV PRN; +oxyCODONE ER 10 MG (OxyCONTIN CR) TAB PO ONE
[2017-07-06 13:35] VITALS: BP 165/88
[2017-07-06] MEDS: fentaNYL INJECTION 100 MCG/2 ML AMP IVP PRN ×2 (16:27→16:50)
[2017-07-06] MEDS: MIDAZOLAM 2 MG/2 ML (VERSED) VIAL IVP PRN ×2 (16:30→16:45)
[2017-07-06 17:15] VITALS: BP 186/87
[2017-07-06 17:35] VITALS: BP 170/80
[2017-07-12 08:13] VITALS: BP 176/90
== END | disposition home or self-care (01) ==
LOC: ENDO 13:24
PROVIDERS: ATTEND Surgery
DX: K22.70 Barrett's esophagus without dysplasia (principal); Z86.010 Personal history of colon polyps; Z80.0 Family history of malignant neoplasm of digestive organs; Q21.1 Atrial septal defect; I10 Essential (primary) hypertension; I25.10 Atherosclerotic heart disease of native coronary artery without angina pectoris; F32.9 Major depressive disorder, single episode, unspecified; E78.5 Hyperlipidemia, unspecified; E87.6 Hypokalemia; E66.9 Obesity, unspecified; Z68.35 Body mass index [BMI] 35.0-35.9, adult; Z09 Encounter for follow-up examination after completed treatment for conditions other than malignant neoplasm; Z79.82 Long term (current) use of aspirin; Z79.84 Long term (current) use of oral hypoglycemic drugs; Z79.899 Other long term (current) drug therapy

== ENCOUNTER 2017-07-12 07:51 | Day surgery (SDC) | payer OTHER ==
[~2017-07-12] VITALS: Ht 182.9 cm; Wt 117.9 kg
[2017-07-12] MEDS ORDERED: BUP/EPI 0.5% 1:200,000 (MARCAINE) 10ML VIAL IJ ONE (08:17)
[2017-07-12] MEDS ORDERED: CLINDAMYCIN 600 MG/4ML (CLEOCIN) VIAL ONE (08:29)
[2017-07-12] MEDS ORDERED: NS (IVPB) 50 ML ONE (08:29)
[2017-07-12] MEDS ORDERED: PREGABALIN 75 MG (LYRICA) CAP ONE (08:30)
[2017-07-12] MEDS ORDERED: oxyCODONE ER 10 MG (OxyCONTIN CR) TAB PO ONE ×2 (08:30→14:15)
[2017-07-12] MEDS ORDERED: CELECOXIB 100 MG (CeleBREX) CAP PO ONE ×2 (08:30→14:15)
[2017-07-12] MEDS ORDERED: FAMOTIDINE 20MG/2ML IV (PEPCID) ONE (08:31)
[2017-07-12] MEDS ORDERED: ACETAMINOPHEN 500 MG TAB (TYLENOL) ONE (08:31)
[2017-07-12] MEDS ORDERED: ceFAZolin 2 GM/50 ML NS 50 ML ONE (08:32)
[2017-07-12 08:46] VITALS: BP 176/90
--- NOTE | 2017-07-12 10:16 | Progress Note-Pre Operative ---
Pre-Operative Progress Note H&P Reviewed The H&P was reviewed, patient examined and no changes noted. Time Seen by Provider: 11:20 Date H&P Reviewed: Jul 12, 2017 Time H&P Reviewed: 10:15 Pre-Operative Diagnosis: Ventral hernia REECE MATOS MD Jul 12, 2017 10:16 am
[2017-07-12] MEDS ORDERED: KETAMINE HCL 100 MG/ML 5 ML VIAL ONE (11:02)
[2017-07-12] MEDS ORDERED: fentaNYL INJECTION 100 MCG/2 ML AMP ONE (11:02)
[2017-07-12] MEDS ORDERED: proPOfol 200 MG/20 ML (DIPRIVAN) VIAL IV ONE (11:02)
[2017-07-12] MEDS ORDERED: MIDAZOLAM 2 MG/2 ML (VERSED) VIAL ONE (11:02)
[2017-07-12] MEDS ORDERED: ROCURONIUM 50 MG/5 ML (ZEMURON) VIAL IV ONE ×2 (11:02→13:30)
[2017-07-12] MEDS ORDERED: LIDOCAINE PF 0.5% 50 ML (XYLOCAINE) VIAL ONE (11:02)
[2017-07-12] MEDS ORDERED: SUCCINYLCHOLINE INJ 100 MG/5 ML SYR ONE (11:40)
[2017-07-12] MEDS ORDERED: SEVOFLURANE (ULTANE) 15 ML INHAL SOLN ONE ×2 (11:40→13:52)
[2017-07-12] MEDS ORDERED: ceFAZolin 2 GM/50 ML NS 50 ML IV ONE (12:30)
[2017-07-12] MEDS ORDERED: LACTATED RINGERS 1,000 ML IV PRN (13:13)
[2017-07-12] MEDS ORDERED: ONDANSETRON 4 MG/2 ML (SDV) Z0FRAN ONE (13:27)
[2017-07-12] MEDS ORDERED: GLYCOPYRROLATE 0.2 MG/ML (ROBINUL) 2 ML VIAL ONE ×2 (13:27→13:55)
[2017-07-12] MEDS ORDERED: NEOSTIGMINE (BLOXIVERZ ) 1 MG/1ML 10 ML VIAL ONE (13:27)
[2017-07-12] MEDS ORDERED: DEXAMETHASONE 10 MG/ML (DECADRON) 1 ML VIAL ONE (13:27)
[2017-07-12] MEDS ORDERED: RT-ALBUTEROL SULF 2.5 MG/3 ML PRE-MIX VIAL INH ONE (14:10)
[2017-07-12] MEDS ORDERED: PREGABALIN 75 MG (LYRICA) CAP PO ONE (14:15)
[2017-07-12] MEDS ORDERED: ACETAMINOPHEN 500 MG TAB (TYLENOL) PO ONE (14:15)
[2017-07-12] MEDS ORDERED: FUROSEMIDE 40 MG/4 ML INJ (LASIX) ONE (14:23)
--- NOTE | 2017-07-12 15:14 | Diagnostic Imaging Report ---
EXAMINATION: Portable upright radiograph of the chest. INDICATION: Respiratory changes after ventral hernia repair. FINDINGS: There is interstitial thickening, suggestive of pulmonary vascular congestion. The heart size is borderline enlarged. No effusion or pneumothorax. The mediastinum and manuela appear unremarkable. IMPRESSION: Pulmonary vascular congestion. Dictated by: Dictated on workstation # [id number]
[2017-07-12 15:45] VITALS: BP 168/94
--- NOTE | 2017-07-12 16:21 | Operative Report ---
Operative Report Date of Procedure/Surgery Jul 12, 2017 Surgeon (s) REECE MATOS MD Director Of Employee Development (s): N/A Post-Operative Diagnosis Same Procedure Performed Robotic assisted repair of ventral hernia with mesh Description of Procedure Anesthesia Type: General Estimated blood loss (mL): 50 mL Specimen(s) collected/removed none Description of the Procedure Indication for procedure: This gentleman came in with a primary ventral hernia in relation to his umbilicus, with symptoms. He was offered minimally invasively repaired with robotic assistance and mesh reinforcement after primary closure of the defect itself. Informed consent was obtained after reviewing the operative details and complications of wound infection, infection of the mesh, recurrence of the hernia and cardio-respiratory dysfunction. Description of the procedure: He was placed supine on the operative table and general anesthesia induced using an endotracheal tube. 2 g of Ancef were administered intravenously as prophylaxis against wound infection. Sequential compression devices were placed around his legs, to minimize the risk of venous thrombosis. The right side of his body was lifted on a soft roll, to facilitate triangulation of the robotic system. Abdomen was prepared and draped in the usual sterile fashion. Pneumoperitoneum was established using a Veress needle introduced along the right subcostal margin, overlying the mid clavicular line. A 12 mm trocar was placed and anatomy visualized using the high definition, 3-dimensional laparoscope associated with da Aurelia system.under direct view, I placed another 12 mm trocar over the right side of abdomen, along the midclavicular line, followed by an 8 mm trocar over the right lower quadrant. When the robotic camera was introduced via the trocar along the mid axillary line, the anesthesiologist reported decrease in the end tidal carbon dioxide and desaturation, concerning for acute pulmonary embolism. At this point, a capsular tear of the liver became evident. It is therefore likely that carbon dioxide embolism would have contributed to the desaturation. Therefore, we discontinued the insufflation and had the anesthesiologist assess the situation. His condition stabilized very quickly and therefore we proceeded with the operation, entertaining insufflation and a lower rate of 8 L/m. Omentum was contained within the hernia. It was taken down using the hook cautery, revealing a defect measuring about 3 cm in diameter. It was closed primarily using 0V LOC sutures. The repair was then reinforced with the polypropylene mesh measuring 12 cm in diameter. It was secured to the abdominal muscles using 20V LOC sutures with the robotic assistance. Hemostasis was satisfactory in the operation concluded The fascia over the 12 mm incisions was closed using #1 Vicryl. Skin was closed using 4-0 Vicryl, in a subcuticular fashion. 0.5 percent Marcaine with epinephrine was infiltrated along the incisions, both preemptively and at the conclusion of the operation but he tolerated the procedure well, was extubated in the operating room and taken to the recovery room in a stable condition. Findings of the Procedure See op report Allergies and Home Medications Allergies Coded Allergies: No Known Drug Allergies (Verified , 05/19/08) Uncoded Allergies: [id number] (HAYFEVER) (Allergy, Mild, 12/21/08) Home Medications Allopurinol 100 Mg Tablet, 100 MG PO BID, (Reported) Aripiprazole 2 Mg Tablet, 2 MG PO DAILY, (Reported) Aspirin 81 Mg Tablet.dr, 81 MG PO DAILY, (Reported) Atorvastatin Calcium 80 Mg Tablet, 80 MG PO HS, (Reported) Cholecalciferol (Vitamin D3) 1,000 Unit Tablet, 1,000 UNIT PO DAILY, (Reported) Cyanocobalamin (Vitamin B-12) 1,000 Mcg Tablet, 1,000 MCG PO DAILY, (Reported) Esomeprazole Magnesium 40 Mg Cap, 40 MG PO BID, (Reported) Fenofibric Acid (Choline) 135 Mg Capsule.dr, 135 MG PO HS, (Reported) Fluoxetine HCl 40 Mg Capsule, 40 MG PO HS, (Reported) Folic Acid 0.4 Mg Tablet, 0.4 MG PO HS, (Reported) Furosemide 40 Mg Tablet, 40 MG PO DAILY, (Reported) Metformin HCl 500 Mg Tablet, 500 MG PO BID, (Reported) Metoprolol Tartrate 50 Mg Tablet, 50 MG PO BID, (Reported) [facility] 3 Polyunsat Fatty Acids 1,000 Mg Cap, 1,000 MG PO BID, (Reported) Potassium Chloride 20 Meq Tab.er.prt, 20 MEQ PO DAILY PRN, (Reported) Tramadol HCl 50 Mg Tablet, 50 MG PO BID, (Reported) Trazodone HCl 50 Mg Tablet, 50 MG PO HS, (Reported) Ubidecarenone 200 Mg Capsule, 200 MG PO DAILY, (Reported) REECE MATOS MD Jul 12, 2017 4:21 pm
[2017-07-12] MEDS ORDERED: CATHETER FLUSH 10 ML SYR IV PRN (16:30)
[2017-07-12] MEDS ORDERED: PATIENT MAY USE OWN MEDS, ALL MC SCH (16:45)
[2017-07-12] MEDS: morphine INJ 4 MG/ML 1 ML (VIAL/SYRINGE) IV PRN (16:54)
[2017-07-12] MEDS ORDERED: metFORMIN 500 MG (GLUCOPHAGE) TAB PO SCH (17:00)
[2017-07-12] MEDS ORDERED: INFLUENZA TRIvalent 2017-2018 0.5 ML/45 MCG SYR IM ONE (17:30)
[2017-07-12] MEDS ORDERED: FUROSEMIDE 40 MG/4 ML INJ (LASIX) IVP ONE (19:15)
[2017-07-12] MEDS ORDERED: ONDANSETRON 4 MG/2 ML (SDV) Z0FRAN IVP PRN (19:30)
[2017-07-12 19:44] VITALS: BP 158/82
[2017-07-12] MEDS: ESOMEPRAZOLE 40 MG PO SCH (20:39)
[2017-07-12] MEDS: metFORMIN XR 500 MG (GLUCOPHAGE XR) TAB PO SCH (20:40)
[2017-07-12] MEDS: meTOprolol TARTRATE 50 MG (LOPRESSOR) TAB PO SCH (20:41)
[2017-07-12] MEDS: OMEGA 3 (FISH OIL) 1000 MG CAP PO SCH (20:42)
[2017-07-12] MEDS: ALLOPURINOL 100 MG (ZYLOPRIM) TAB PO SCH (20:43)
[2017-07-12] MEDS: CATHETER FLUSH 10 ML SYR IV SCH (20:45)
[2017-07-12] MEDS ORDERED: RX-TRAMADOL 50 MG (ULTRAM) TAB PPK#4 PO SCH (21:00)
[2017-07-12] MEDS ORDERED: PANTOPRAZOLE 40 MG (PROTONIX) TAB PO SCH (21:00)
[2017-07-12] MEDS ORDERED: ATORVASTATIN 80 MG (LIPITOR) TABLET PO SCH (21:00)
[2017-07-12] MEDS ORDERED: FLUOXETINE 40 MG CAPSULE PO SCH (21:00)
[2017-07-12] MEDS ORDERED: FOLIC ACID 400 MCG TAB PO SCH (21:00)
[2017-07-12] MEDS ORDERED: NON-FORMULARY MEDICATION 1 EA EA (Esomeprazole Magnesium (Nexium) 40 MG) PO SCH (21:00)
[2017-07-12] MEDS ORDERED: traZODone 50 MG (DESYREL) TAB PO SCH (21:00)
[2017-07-12] MEDS ORDERED: FENOFIBRIC ACID 135 MG PO SCH (21:00)
[2017-07-12] MEDS ORDERED: traZODone 100 MG (DESYREL) TAB PO SCH (21:00)
[2017-07-13] VITALS: BP 130/60
[2017-07-13 04:00] VITALS: BP 169/83
[2017-07-13] MEDS: CATHETER FLUSH 10 ML SYR IV SCH (04:52)
[2017-07-13] MEDS: metFORMIN XR 500 MG (GLUCOPHAGE XR) TAB PO SCH (06:05)
[2017-07-13] MEDS: ESOMEPRAZOLE 40 MG PO SCH (06:05)
[2017-07-13] MEDS: morphine INJ 4 MG/ML 1 ML (VIAL/SYRINGE) IV PRN (07:07)
[2017-07-13 08:00] VITALS: BP 189/89
[2017-07-13] MEDS ORDERED: KCL 20 MEQ TAB (K-DUR) PO SCH (08:00)
[2017-07-13] MEDS: meTOprolol TARTRATE 50 MG (LOPRESSOR) TAB PO SCH (08:49)
[2017-07-13] MEDS: OMEGA 3 (FISH OIL) 1000 MG CAP PO SCH (08:51)
[2017-07-13] MEDS: ALLOPURINOL 100 MG (ZYLOPRIM) TAB PO SCH (08:53)
[2017-07-13] MEDS ORDERED: VITAMIN B-12 1000 MCG TAB PO SCH (09:00)
[2017-07-13] MEDS ORDERED: VITAMIN D3 1,000 UNITS (CHOLECALCIFEROL) TABLET PO SCH (09:00)
[2017-07-13] MEDS ORDERED: ASPIRIN E.C. 81 MG (ECOTRIN) TAB PO SCH (09:00)
[2017-07-13] MEDS ORDERED: ARIPIPRAZOLE 2 MG (ABILIFY) TAB PO SCH (09:00)
[2017-07-13] MEDS ORDERED: CO Q10 200 MG PO SCH (09:00)
[2017-07-13] MEDS ORDERED: FUROSEMIDE 40 MG (LASIX) TAB PO SCH (09:00)
[2017-07-13] MEDS ORDERED: HYDR-3812 PO (11:31)
--- NOTE | 2017-07-13 11:32 | Discharge Inst-Simple/Standard ---
Discharge Inst-Standard Discharge Medications New, Converted or Re-Newed RX: RX on Chart Patient Instructions/Follow Up Plan of Care/Instructions/FU: Abdominal binder on while ambulating. Incentive spirometry Activity as Tolerated: No Goal: No lifting over 10 lb Discharge Diet: No Restrictions REECE MATOS MD Jul 13, 2017 11:32 am
--- NOTE | 2017-07-13 12:03 | Progress Note-Standard ---
Standard Progress Note Progress Notes/Assess & Plan Date Seen by Provider: Jul 13, 2017 Time Seen by Provider: 11:15 Progress/Assessment & Plan respiratory difficulties improved. Response to diuresis. Incisions dry. Could be discharged home Final Diagnosis ventral hernia REECE MATOS MD Jul 13, 2017 12:03 pm
[2017-07-13 12:30] VITALS: BP 189/89
== END 2017-07-13 12:30 | disposition home or self-care (01) ==
LOC: SDC 07:51 → 4TH 15:45 → SDC 07-13 12:30
PROVIDERS: ATTEND Surgery
DX: K43.9 Ventral hernia without obstruction or gangrene (principal); Z86.010 Personal history of colon polyps; Z83.71 Family history of colonic polyps; E11.9 Type 2 diabetes mellitus without complications; I10 Essential (primary) hypertension; I25.10 Atherosclerotic heart disease of native coronary artery without angina pectoris; F32.9 Major depressive disorder, single episode, unspecified; E78.5 Hyperlipidemia, unspecified; Z79.899 Other long term (current) drug therapy; Z79.84 Long term (current) use of oral hypoglycemic drugs
CPT/HCPCS: 71010; 82962; 94660; 94664; 94760

== ENCOUNTER → 2017-09-24 | Outpatient (CLI) | payer OTHER ==
[~2017-09-24] MED LIST changes: +ACHD5005 PO; +HYDR-34 PO; -HYDR-3816 PO
[2017-09-24 07:33] LABS: ALBUMIN 4.1 GM/DL (3.2-4.5); BILIRUBIN,TOTAL 0.6 MG/DL (0.1-1.0); CALCIUM 9.5 MG/DL (8.5-10.1); CREATININE SERUM 1.3 MG/DL (0.60-1.30); POTASSIUM 4.4 MMOL/L (3.6-5.0); TOTAL PROTEIN 6.7 GM/DL (6.4-8.2); URIC ACID 7.1 MG/DL (2.6-7.2)
== END ==
LOC: LAB 07:04
PROVIDERS: ATTEND Family Medicine
DX: E11.9 Type 2 diabetes mellitus without complications (principal); M10.9 Gout, unspecified; M25.50 Pain in unspecified joint
CPT/HCPCS: 36415; 80053; 83036; 84443; 84550

== ENCOUNTER 2018-01-03 12:44 | Inpatient (IN) | payer OTHER, MEDICARE ==
[~2018-01-03] VITALS: Ht 182.9 cm; Wt 115.4 kg
[~2018-01-03 12:44] MED LIST changes: -METF500T4 PO; +METF500T5 PO
[2018-01-03] MEDS ORDERED: NS IV 1000 ML 1,000 ML IV SCH (13:00)
--- NOTE | 2018-01-03 13:00 | ED Neurological Problem ---
General Stated Complaint: CONFUSION WEAKNESS,SLOW SPEECH,GUERRERO Source: patient, family Exam Limitations: no limitations (EDSON FAIR APRN) History of Present Illness Date Seen by Provider: Jan 03, 2018 Time Seen by Provider: 12:57 Initial Comments to ER with reports of strokelike symptoms. He is brought to ER by private vehicle by his who is an RN here at the hospital. She states that this morning they both awakened at around 6 AM and he seems fine. He had a meeting to go to. He returned home from the meeting at about 8:00 and parked his truck in the yard which is very unusual for him. He went inside and laid down, noticed that he seemed a little tired but she states that they spent the day working in the yard yesterday so she didn't think much about this. At about 810 she noticed him to have some confusion. She was asking him birthdates and other pieces of information that he should know and he was answering them incorrectly. He has had some abdominal cramping, right-sided headache,he worked outside all day yesterday so the attributes this to a heat related illness. He's not had any vomiting. She states that he did seem to have some trouble walking as well and that neither of his legs seems to work well. She did not notice any slurred speech other than that his speech did seem delayed and slower than usual.at this time, he is alert and oriented to person place and time,, he states "I just feel like shit". Timing/Duration: 4-6 hours Severity: moderate Associated Symptoms: confusion; No nausea/vomiting, No numbness in legs/feet, No paresthesia, No ringing in ears, No seizures, No sleepy (EDSON FAIR APRN) Allergies and Home Medications Allergies Coded Allergies: No Known Drug Allergies (Verified , 05/19/08) Uncoded Allergies: [id number] (HAYFEVER) (Allergy, Mild, 12/21/08) Home Medications Acetaminophen 500 Mg Tablet, 1,000 MG PO BID, (Reported) Allopurinol 100 Mg Tablet, 100 MG PO BID, (Reported) Aripiprazole 2 Mg Tablet, 2 MG PO DAILY, (Reported) Aspirin 81 Mg Tablet.dr, 81 MG PO DAILY, (Reported) Atorvastatin Calcium 80 Mg Tablet, 80 MG PO HS, (Reported) Cholecalciferol (Vitamin D3) 1,000 Unit Tablet, 1,000 UNIT PO DAILY, (Reported) Cyanocobalamin (Vitamin B-12) 1,000 Mcg Tablet, 1,000 MCG PO DAILY, (Reported) Esomeprazole Magnesium 40 Mg Cap, 40 MG PO BID, (Reported) Fenofibric Acid (Choline) 135 Mg Capsule.dr, 135 MG PO HS, (Reported) Fluoxetine HCl 40 Mg Capsule, 40 MG PO HS, (Reported) Folic Acid 0.4 Mg Tablet, 0.4 MG PO HS, (Reported) Furosemide 40 Mg Tablet, 40 MG PO DAILY, (Reported) Metformin HCl 500 Mg Tablet, 500 MG PO BID, (Reported) Metoprolol Tartrate 50 Mg Tablet, 50 MG PO BID, (Reported) [facility] 3 Polyunsat Fatty Acids 1,000 Mg Cap, 1,000 MG PO BID, (Reported) Potassium Chloride 20 Meq Tab.er.prt, 20 MEQ PO DAILY, (Reported) Tramadol HCl 50 Mg Tablet, 50 MG PO DAILY, (Reported) Tramadol HCl 50 Mg Tablet, 100 MG PO HS, (Reported) Trazodone HCl 50 Mg Tablet, 50 MG PO HS, (Reported) Ubidecarenone 200 Mg Capsule, 200 MG PO DAILY, (Reported) Patient Home Medication List Home Medication List Reviewed: Yes (EDSON FAIR APRN) Home Medication List Reviewed: Yes (RICHI WALKER MD) Review of Systems Constitutional: see HPI Eyes: No Symptoms Reported Ears, Nose, Mouth, Throat: no symptoms reported Respiratory: no symptoms reported Cardiovascular: no symptoms reported Genitourinary: no symptoms reported Musculoskeletal: no symptoms reported Skin: no symptoms reported Psychiatric/Neurological: See HPI Endocrine: No Symptoms Reported (EDSON FAIR APRN) All Other Systems Reviewed Negative Unless Noted: Yes (RICHI WALKER MD) Past Lsmmntq-Bynmui-Pbwsvt Hx Past Med/Social Hx: Reviewed Nursing Past Med/Soc Hx (RICHI WALKER MD) Patient Social History Alcohol Beverage of Choice: Beer Type Used: Smokeless Tobacco Former Smoker, Quit: Jun 03, 1981 Recent Foreign Travel: No Contact w/Someone Who Travel: No Recent Hopitalizations: No (EDSON FAIR APRN) Immunizations Up To Date Date of Pneumonia Vaccine: Aug 14, 2008 Date of Influenza Vaccine: Apr 25, 2016 (EDSON FAIR APRN) Seasonal Allergies Seasonal Allergies: Yes (EDSON FAIR APRN) Past Medical History Orthopedic, Tonsillectomy High Cholesterol, Hypertension Reproductive Disorders: No Larios's Esophagus Arthritis Depression (EDSON FAIR APRN) Family Medical History Reviewed Nursing Family Hx (RICHI WALKER MD) Physical Exam Vital Signs Vital Signs - First Documented 01/03/18 12:51 Temp 97.1 Pulse 90 Resp 16 B/P (MAP) 131/84 (100) Pulse Ox 95 O2 Delivery Room Air (RICHI WALKER MD) Vital Signs Capillary Refill : (EDSON FAIR APRN) General Appearance: WD/WN, no apparent distress, other (diaphoretic) HEENT: PERRL/EOMI, normal ENT inspection Neck: non-tender, full range of motion Respiratory: normal breath sounds, no respiratory distress, no accessory muscle use Cardiovascular: regular rate, rhythm, no murmur Gastrointestinal: normal bowel sounds, non tender, soft Neurologic/Psychiatric: alert, normal mood/affect, oriented x 3 Crainal Nerves: normal hearing, normal speech, PERRL Skin: normal color, diaphoresis (EDSON FAIR APRN) Respiratory: lungs clear, normal breath sounds Cardiovascular: regular rate, rhythm, no murmur Gastrointestinal: non tender, soft Extremities: non-tender, normal inspection Neurologic/Psychiatric: alert, oriented x 3 Motor/Sensory: no motor deficit Skin: diaphoresis, other (erythema noted to the left leg. Great toe toenail has wound under and erythema. He has fungal nails to great toes bilateral with left greater than right.) (RICHI WALKER MD) Stroke Onset of Symptoms Date of Onset of Symptoms: Jan 03, 2018 Time of Symptom Onset: 08:10 Onset of Symptoms: Yes Symptoms onset unknown: No (EDSON FAIR APRN) NIH Stroke Scale Assessment Select: Initial Level of Consciousness: 0=Alert (0), Level of Consciousness- Questions: 0=Answers both month/age (0), LOC Commands: 0=Performs both tasks (0) , Gaze: Normal (0), Visual Carranza: 0=No visual loss (0), Facial Movement ( Facial Paresis): 0=Normal symmetrical mnt (0), Motor Function-Arms Right: 0=No drift (0), Motor Function-Arms Left: 0=No drift (0), Motor Function-Legs Right: 0=No drift (0), Motor Function-Legs Left: 0=No drift (0), Limb Ataxia: 0=Absent (0), Sensory: 1=Mild to Moderate loss (1), Best Language: 0=No aphasia (0), Dysarthria: 0=Normal (0), Extinction & Inattention: 0=No abnormality (0), Total : 1 Stroke Thrombolytic Exclusion Age 18 or Over: No (EDSON FAIR APRN) Focused Exam Lactate Level 01/03/18 13:10: Lactic Acid Level 1.75 (RICHI WALKER MD) Lactic Acid Level Laboratory Tests Test 01/03/18 13:10 Lactic Acid Level 1.75 MMOL/L (0.50-2.00) (RICHI WALKER MD) Progress/Results/Core Measures Results/Orders Lab Results Laboratory Tests Test 01/03/18 12:56 01/03/18 13:10 01/03/18 13:30 01/03/18 15:40 Range/Units White Blood Count 13.5 H 4.3-11.0 10^3/uL Red Blood Count 5.45 4.35-5.85 10^6/uL Hemoglobin 15.8 13.3-17.7 G/DL Hematocrit 47 40-54 % Mean Corpuscular Volume 87 80-99 FL Mean Corpuscular Hemoglobin 29 25-34 PG Mean Corpuscular Hemoglobin Concent 33 32-36 G/DL Red Cell Distribution Width 14.4 10.0-14.5 % Platelet Count 180 130-400 10^3/uL Mean Platelet Volume 8.8 7.4-10.4 FL Neutrophils (%) (Auto) 93 H 42-75 % Lymphocytes (%) (Auto) 2 L 12-44 % Monocytes (%) (Auto) 5 0-12 % Eosinophils (%) (Auto) 0 0-10 % Basophils (%) (Auto) 0 0-10 % Neutrophils # (Auto) 12.5 H 1.8-7.8 X 10^3 Lymphocytes # (Auto) 0.3 L 1.0-4.0 X 10^3 Monocytes # (Auto) 0.7 0.0-1.0 X 10^3 Eosinophils # (Auto) 0.0 0.0-0.3 10^3/uL Basophils # (Auto) 0.0 0.0-0.1 10^3/uL Neutrophils % (Manual) 83 % Lymphocytes % (Manual) 4 % Monocytes % (Manual) 6 % Eosinophils % (Manual) 0 % Basophils % (Manual) 0 % Band Neutrophils 7 % Blood Morphology Comment NORMAL Prothrombin Time 13.5 12.2-14.7 SEC INR Comment 1.0 0.8-1.4 Activated Partial Thromboplast Time 23 L 24-35 SEC D-Dimer 0.40 0.00-0.49 UG/ML Sodium Level 139 135-145 MMOL/L Potassium Level 4.3 3.6-5.0 MMOL/L Chloride Level 102 98-107 MMOL/L Carbon Dioxide Level 23 21-32 MMOL/L Anion Gap 14 5-14 MMOL/L Blood Urea Nitrogen 18 7-18 MG/DL Creatinine 1.64 H 0.60-1.30 MG/DL Estimat Glomerular Filtration Rate 43 BUN/Creatinine Ratio 11 Glucose Level 122 H 70-105 MG/DL Calcium Level 10.1 8.5-10.1 MG/DL Total Bilirubin 0.8 0.1-1.0 MG/DL Aspartate Amino Transf (AST/SGOT) 25 5-34 U/L Alanine Aminotransferase (ALT/SGPT) 29 0-55 U/L Alkaline Phosphatase 54 40-136 U/L Troponin I < 0.30 <0.30 NG/ML Total Protein 7.3 6.4-8.2 GM/DL Albumin 4.4 3.2-4.5 GM/DL Lactic Acid Level 1.75 0.50-2.00 MMOL/L Glucometer 121 H 70-110 MG/DL Urine Color YELLOW Urine Clarity CLEAR Urine pH 6 5-9 Urine Specific [place] 1.010 L 1.016-1.022 Urine Protein NEGATIVE NEGATIVE Urine Glucose (UA) NEGATIVE NEGATIVE Urine Ketones NEGATIVE NEGATIVE Urine Nitrite NEGATIVE NEGATIVE Urine Bilirubin NEGATIVE NEGATIVE Urine Urobilinogen NORMAL NORMAL MG/DL Urine Leukocyte Esterase NEGATIVE NEGATIVE Urine RBC (Auto) NEGATIVE NEGATIVE Urine RBC NONE /HPF Urine WBC NONE /HPF Urine Squamous Epithelial Cells NONE /HPF Urine Crystals NONE /LPF Urine Bacteria NEGATIVE /HPF Urine Casts NONE /LPF Urine Mucus NEGATIVE /LPF Urine Culture Indicated NO (RICHI WALKER MD) My Orders Orders - RICHI WALKER MD Ns Iv 1000 Ml (Sodium Chloride 0.9%) (01/03/18 14:12) Olanzapine Orally Dissolve Tab (Zyprexa (01/03/18 15:15) Us Venous Lower Ext Lt (01/03/18 15:33) Ceftriaxone Injection (Rocephin Injectio (01/03/18 16:30) (RICHI WALKER MD) Medications Given in ED Current Medications Medications Dose Ordered Sig/Grace Route Start Time Stop Time Status Last Admin Dose Admin Sodium Chloride 1,000 ml @ 0 mls/hr Q0M ONCE IV 01/03/18 14:12 01/03/18 14:13 DC 01/03/18 14:15 0 MLS/HR (RICHI WALKER MD) Vital Signs/I&O 01/03/18 12:51 Temp 97.1 Pulse 90 Resp 16 B/P (MAP) 131/84 (100) Pulse Ox 95 O2 Delivery Room Air (RICHI WALKER MD) Progress Progress Note : Progress Note patient initially did an NIH score of 1 for mild sensory loss left arm only (EDSON FAIR APRN) Progress Note : Progress Note I assumed care of the patient from Edson Fair APRN. I had seen and evaluated the patient and agree with above except as indicated. I have reviewed and agree with the plan of care. Patient has workup for multiple avenues for his altered mental status including possibility of stroke, infectious etiology and heat injury. IV initiated. Labs, chest x-ray, EKG, CT head, UA, blood cultures and lactic acid 11 ordered. Normal saline 1 L bolus ordered. Monitor patient. 1530: reported the concerns of the left lower extremity erythema. Wound found to the great toe. This is likely the source of the cellulitis. Urine is pending. 1610: UA is clean. I do believe this is sepsis related to left lower extremity cellulitis from the left great toe. I did discuss the case with Dr. Moreno and she accepts patient for admission, inpatient status. Rocephin 1 g IV ordered. We will use this with vancomycin. Findings were discussed with patient and family who agree with plan. (RICHI AWLKER MD) Initial ECG Impression Date: Jan 03, 2018 Initial ECG Impression Time: 12:59 Initial ECG Rate: 87 Initial ECG Rhythm: Normal Sinus Comment Sinus rhythm with nonspecific intraventricular conduction delay. Left ventricular hypertrophy noted. Normal axis. No evidence of ST elevation MS. Similar to previous of 19 September 2014 although this EKG has more artifact. Interpreted by me. (RICHI WALKER MD) Diagnostic Imaging Diagonstic Imaging: CT Plain Films/CT/US/NM/MRI: head Comments VIA [place], [place] NAME: DWIGHT MAC [facility] REC#: [id number] PT STATUS: REG ER : 1955 PHYSICIAN: EDSON FAIR APRN ADMIT DATE: 01/03/18/ER Draft Date of Exam:01/03/18 CT HEAD WO-R/O STROKE INDICATION: Diaphoresis. Confusion. Altered mental status. TECHNIQUE: Routine non contrast-enhanced axial images were obtained from the skull base to the vertex. COMPARISON: 03/13/2011 FINDINGS: The ventricles and cortical sulci are diffusely prominent, compatible with age-related volume loss. There are confluent areas of abnormal, low attenuation in the periventricular white matter. This is consistent with chronic small vessel ischemic changes. There is no midline shift or mass-effect. No acute intra-axial hemorrhage is seen. There are no abnormal areas of increased or decreased density to suggest acute hemorrhage or edema. No extra-axial masses or collections are present. The bony calvarium is intact. The visualized paranasal sinuses are unremarkable. The mastoid air cells are clear. IMPRESSION: 1. No acute intracranial abnormality. No CT evidence of mass, acute infarct or intracranial hemorrhage. 2. Chronic small vessel ischemic changes. Dictated on workstation # [id number] Dict: 01/03/18 1355 Trans: 01/03/18 1404 [facility] [id number] Interpreted by: MARLON BELTRAN MD Electronically signed by: Diagonstic Imaging: Xray Plain Films/CT/US/NM/MRI: chest Comments NAME: DWIGHT MAC [facility] REC#: [id number] PT STATUS: REG ER : 1955 PHYSICIAN: EDSON FAIR APRN ADMIT DATE: 01/03/18/ER Signed Date of Exam: 01/03/18 CHEST 1 VIEW, AP/PA ONLY INDICATION: Confusion. TIME OF EXAMINATION: 01:32 p.m. COMPARISON: Correlation is made with prior study from 07/12/2017. FINDINGS: The heart size is normal. The pulmonary vascularity is unremarkable. The lungs are clear. No infiltrate, effusion or pneumothorax is detected. IMPRESSION: No acute cardiopulmonary process is detected. Dictated by: Dictated on workstation # [id number] Dict: 01/03/18 1349 Trans: 01/03/18 1546 Interpreted by: ESSIE MORRIS MD Electronically signed by: ESSIE MORRIS MD 01/03/18 1546 (RICHI WALKER MD) Departure Communication (Admissions) Time/Spoke to Admitting Phy: 16:10 (RICHI WALKER MD) Impression Primary Impression: Cellulitis of left lower extremity Additional Impression: Sepsis Qualified Codes: A41.9 - Sepsis, unspecified organism Disposition: ADMITTED INPATIENT Condition: Stable Admissions Decision to Admit Reason: Admit from ER (General) Decision to Admit/Date: Jan 03, 2018 Time/Decision to Admit Time: 16:10 (RICHI WALKER MD) Departure-Patient Inst. Referrals: GARCIA MORENO DO (PCP/Family) Primary Care Physician EDSON FAIR APRN Jan 03, 2018 13:00 RICHI WALKER MD Jan 03, 2018 13:30
[2018-01-03 13:02] LABS: BASOPHILS % (AUTO) 0 % (0-10); EOSINOPHILS % (AUTO) 0 % (0-10); HEMATOCRIT 47 % (40-54); HEMOGLOBIN 15.8 G/DL (13.3-17.7); LYMPHOCYTES # (AUTO) 0.3 X 10^3 (1.0-4.0); LYMPHOCYTES % (AUTO) 2 % (12-44); MEAN CORPUSCULAR HEMOGLOBIN 29 PG (25-34); MEAN CORPUSCULAR HGB CONC 33 G/DL (32-36); MEAN CORPUSCULAR VOLUME 87 FL (80-99); MEAN PLATELET VOLUME 8.8 FL (7.4-10.4); MONOCYTES # (AUTO) 0.7 X 10^3 (0.0-1.0); MONOCYTES % (AUTO) 5 % (0-12); NEUTROPHILS # (AUTO) 12.5 X 10^3 (1.8-7.8); NEUTROPHILS % (AUTO) 93 % (42-75); PLATELET COUNT 180 10^3/uL (130-400); RED BLOOD COUNT 5.45 10^6/uL (4.35-5.85); RED CELL DISTRIBUTION WIDTH 14.4 % (10.0-14.5); WHITE BLOOD COUNT 13.5 10^3/uL (4.3-11.0)
[2018-01-03 13:19] LABS: BAND NEUTROPHILS 7 %; BASOPHILS % (MANUAL) 0 %; EOSINOPHILS % (MANUAL) 0 %; LYMPHOCYTES % (MANUAL) 4 %; MONOCYTES % (MANUAL) 6 %; NEUTROPHILS % (MANUAL) 83 %; RBC MORPH NORMAL
[2018-01-03 13:29] LABS: ALANINE AMINOTRANSFERASE 29 U/L (0-55); ALBUMIN 4.4 GM/DL (3.2-4.5); ALKALINE PHOSPHATASE 54 U/L (40-136); BILIRUBIN,TOTAL 0.8 MG/DL (0.1-1.0); BUN/CREATININE RATIO 11; CALCIUM 10.1 MG/DL (8.5-10.1); CARBON DIOXIDE 23 MMOL/L (21-32); CHLORIDE 102 MMOL/L (98-107); CREATININE SERUM 1.64 MG/DL (0.60-1.30); GFR ESTIMATED 43; GLUCOSE 122 MG/DL (70-105); POTASSIUM 4.3 MMOL/L (3.6-5.0); SODIUM 139 MMOL/L (135-145); TOTAL PROTEIN 7.3 GM/DL (6.4-8.2)
[2018-01-03 13:41] LABS: FIBRIN DEGRADATION PRODUCTS 0.4 UG/ML (0.00-0.49); PROTHROMBIN TIME PATIENT 13.5 SEC (12.2-14.7)
[2018-01-03] MEDS ORDERED: TRAM50TA2 PO (13:42)
[2018-01-03] MEDS ORDERED: ACET-2267 PO (13:42)
--- NOTE | 2018-01-03 13:54 | Diagnostic Imaging Report ---
INDICATION: Confusion. TIME OF EXAMINATION: 01:32 p.m. COMPARISON: Correlation is made with prior study from 07/12/2017. FINDINGS: The heart size is normal. The pulmonary vascularity is unremarkable. The lungs are clear. No infiltrate, effusion or pneumothorax is detected. IMPRESSION: No acute cardiopulmonary process is detected. Dictated by: Dictated on workstation # [id number]
--- NOTE | 2018-01-03 14:05 | Diagnostic Imaging Report ---
INDICATION: Diaphoresis. Confusion. Altered mental status. TECHNIQUE: Routine non contrast-enhanced axial images were obtained from the skull base to the vertex. COMPARISON: 03/13/2011 FINDINGS: The ventricles and cortical sulci are diffusely prominent, compatible with age-related volume loss. There are confluent areas of abnormal, low attenuation in the periventricular white matter. This is consistent with chronic small vessel ischemic changes. There is no midline shift or mass-effect. No acute intra-axial hemorrhage is seen. There are no abnormal areas of increased or decreased density to suggest acute hemorrhage or edema. No extra-axial masses or collections are present. The bony calvarium is intact. The visualized paranasal sinuses are unremarkable. The mastoid air cells are clear. IMPRESSION: 1. No acute intracranial abnormality. No CT evidence of mass, acute infarct or intracranial hemorrhage. 2. Chronic small vessel ischemic changes. Dictated by: Dictated on workstation # [id number]
[2018-01-03] MEDS ORDERED: NS IV 1000 ML 1,000 ML IV ONE (14:12)
[2018-01-03] MEDS ORDERED: OLANZapine 5 MG ODT (ZyPREXA ZYDIS) PO ONE (15:15)
[2018-01-03 15:49] LABS: BILIRUBIN,URINE NEGATIVE (NEGATIVE); CLARITY,URINE CLEAR; COLOR,URINE YELLOW; GLUCOSE, URINE (UA) NEGATIVE (NEGATIVE); KETONES,URINE NEGATIVE (NEGATIVE); LEUKOCYTE ESTERASE ,URINE NEGATIVE (NEGATIVE); NITRITE,URINE NEGATIVE (NEGATIVE); PH,URINE 6 (5-9); PROTEIN,URINE NEGATIVE (NEGATIVE); UROBILINOGEN,URINE NORMAL (NORMAL)
[2018-01-03 15:59] LABS: BACTERIA,URINE NEGATIVE /HPF
--- NOTE | 2018-01-03 16:08 | Diagnostic Imaging Report ---
INDICATION: Confusion. Left lower extremity swelling. COMPARISON: None. TECHNIQUE: Duplex, gallardo-scale and color-flow imaging of the left lower extremity venous system was performed. FINDINGS: The common femoral vein, superficial femoral vein, profunda femoris, and popliteal veins are normal. These vessels show normal compressibility, color flow, and doppler augmentation. The deep calf veins, although not very well seen, demonstrate no distinct intraluminal thrombus. IMPRESSION: Negative venous Doppler of the left lower extremity. Dictated by: Dictated on workstation # [id number]
[2018-01-03] MEDS ORDERED: cefTRIAXone INJECTION 1,000 MG in NS (IVPB) 50 ML IV ONE (16:30)
--- OUTSIDE RECORDS SUMMARY | 2018-01-03 17:04 | XMS REPORT | Continuity of Care Document ---
Author Author [facility] Organization [facility] Address Unknown Phone Unavailable Allergies Active Description Code Type Severity Reaction Onset Reported/Identified Relationship to Patient Clinical Status Yes No Known Drug Allergies [id number] Drug Allergy Unknown N/A 05/19/2008 Yes [id number] (HAYFEVER) [id number] (HAYFEVER) Mild N/A 12/21/2008 Medications There is no data. Problems Date Dx Coded Attending Type Code Diagnosis Diagnosed By 03/20/2011 Ot 272.0 PURE HYPERCHOLESTEROLEM 03/20/2011 Ot 292.12 DRUG- INDUCED PSYCHOTIC DISORDER WITH PARISH 03/20/2011 Ot 305.1 TOBACCO USE DISORDER 03/20/2011 Ot 311 DEPRESSIVE DISORDER NEC 03/20/2011 Ot 401.9 HYPERTENSION NOS 03/20/2011 Ot 518.0 PULMONARY COLLAPSE 03/20/2011 Ot 530.81 ESOPHAGEAL REFLUX 03/20/2011 Ot 682.6 CELLULITIS OF LEG 03/20/2011 Ot 807.02 FRACTURE TWO RIBS-CLOSED 03/20/2011 Ot 836.2 TEAR MENISCUS NEC-CURREN 03/20/2011 Ot 861.21 LUNG CONTUSION-CLOSED 03/20/2011 Ot 910.0 ABRASION HEAD 03/20/2011 Ot 922.31 BACK CONTUSION 03/20/2011 Ot 923.00 CONTUSION SHOULDER REG 03/20/2011 Ot 924.11 CONTUSION OF KNEE 03/20/2011 Ot E000.8 OTHER EXTERNAL CAUSE STATUS 03/20/2011 Ot E029.9 OTHER ACTIVITY 03/20/2011 Ot E816.2 LOSS CONTROL MV-MOCYCL 03/20/2011 Ot E935.2 ADV EFF OPIATES 06/11/2014 ALIA MORENO DO S Ot 250.00 06/11/2014 ALIA MORENO DO S Ot 272.4 09/07/2014 ALIA MORENO DO Ot 782.3 09/07/2014 ALIA MORENO DO S Ot 785.2 09/07/2014 PATRICIA MORENO DOLINE S Ot 786.09 09/13/2014 NAVID JAQUEZ FAC, ALI FACP CCDS Ot 272.4 09/13/2014 NAVID JAQUEZ FAC, ALI FACP CCDS Ot 278.00 09/13/2014 NAVID MD FAC, ALI FACP CCDS Ot 401.9 09/13/2014 NAVID MD FAC, ALI FACP CCDS Ot 745.5 09/13/2014 NAVID MD FAC, ALI FACP CCDS Ot 786.09 09/13/2014 NAVID MD FAC, ALI FACP CCDS Ot V58.69 09/13/2014 NAVID JAQUEZ [facility], ALI FACP CCDS Ot V85.36 09/19/2014 NAVID JAQUEZ FAC, ALI FACP CCDS Ot 272.4 09/19/2014 NAVID MD FAC, ALI FACP CCDS Ot 278.00 09/19/2014 NAVID JAQUEZ [facility], ALI FACP CCDS Ot 401.9 09/19/2014 NAVID JAQUEZ [facility], ALI FACP CCDS Ot 414.01 09/19/2014 NAVID JAQUEZ [facility], ALI FACP CCDS Ot 786.09 09/19/2014 NAVID JAQUEZ [facility], ALI FACP CCDS Ot 794.30 09/19/2014 NAVID JAQUEZ [facility], ALI FACP CCDS Ot V58.69 09/19/2014 NAVID MD [facility], ALI FACP CCDS Ot V85.36 09/21/2014 VANBECELAERE, GREGORIO M PYROTECHNIC MIXER Ot 272.4 09/21/2014 VANBECELAERE, GREGORIO M PYROTECHNIC MIXER Ot 401.9 09/21/2014 VANBECELAERE, GREGORIO M PYROTECHNIC MIXER Ot 782.3 09/21/2014 VANBECELAERE, GREGORIO M PYROTECHNIC MIXER Ot 790.22 10/30/2014 NAVID JAQUEZ [facility], ALI FACP CCDS Ot V45.82 10/30/2014 NAVID JAQUEZ [facility], ALI FACP CCDS Ot V57.89 11/28/2014 TRACIE JOHNSON L PYROTECHNIC MIXER Ot 272.4 11/28/2014 TRACIE JOHNSON L PYROTECHNIC MIXER Ot 401.9 11/28/2014 TRACEI JOHNSON L PYROTECHNIC MIXER Ot 414.00 11/28/2014 TRACIE JOHNSON PYROTECHNIC MIXER Ot 745.5 12/22/2014 NAVID JAQUEZ FAC, ALI FACP CCDS Ot V45.82 12/22/2014 NAVID JAQUEZ FAC, ALI FACP CCDS Ot V57.89 02/01/2015 NAVID JAQUEZ FACC, ALI FACP CCDS Ot 272.4 02/01/2015 NAVID JAQUEZ FACC, ALI FACP CCDS Ot 278.00 02/01/2015 NAVID JAQUEZ FAC, ALI FACP CCDS Ot 401.9 02/01/2015 NAVID JAQUEZ FAC, ALI FACP CCDS Ot 414.00 02/01/2015 NAVID JAQUEZ FAC, ALI FACP CCDS Ot 429.3 02/01/2015 NAVID AJQUEZ FAC, ALI FACP CCDS Ot 433.10 02/01/2015 NAVID JAQUEZ FACC, ALI FACP CCDS Ot 729.81 02/01/2015 NAVID JAQUEZ FACC, ALI FACP CCDS Ot 786.09 05/03/2015 NAVID JAQUEZ [facility], ALI FACP CCDS Ot 272.4 05/03/2015 NAVID JAQUEZ FAC, ALI FACP CCDS Ot 414.00 06/24/2015 CARLO JAQUEZ, REECE Connor Ot K22.70 06/24/2015 CARLO JAQUEZ, REECE Connor Ot K44.9 06/24/2015 CARLO JAQUEZ, REECE Connor Ot K63.5 06/24/2015 CARLO JAQUEZ, REECE Connor Ot Z80.0 06/26/2015 ANETTE JAQUEZ, JELLY Hollis Ot E78.5 06/26/2015 ANETTE JAQUEZ, JELLY P Ot K21.9 06/26/2015 ANETTE JAQUEZ, JELLY Hollis Ot M67.432 11/19/2015 NAVID JAQUEZ FACC, ALI FACP CCDS Ot E78.4 OTHER HYPERLIPIDEMIA 11/19/2015 NAVID ANANDC, ALI FACP CCDS Ot I10 ESSENTIAL (PRIMARY) HYPERTENSION 11/19/2015 NAVID ANANDC, ALI FACP CCDS Ot I25.10 ATHSCL HEART DISEASE OF [place] CORONARY 11/19/2015 NAVID JAQUEZ FACC, ALI FACP CCDS Ot I65.23 OCCLUSION AND STENOSIS OF BILATERAL [place] 11/19/2015 NAVID JAQUEZ FACC, ALI FACP CCDS Ot R06.09 OTHER FORMS OF DYSPNEA 12/20/2015 NAVID JAQUEZ [facility], ALI FACP CCDS Ot E78.4 OTHER HYPERLIPIDEMIA 12/20/2015 NAVID JAQUEZ [facility], ALI FACP CCDS Ot I10 ESSENTIAL (PRIMARY) HYPERTENSION 12/20/2015 NAVID JAQUEZ [facility], ALI FACP CCDS Ot I25.10 ATHSCL HEART DISEASE OF [place] CORONARY 12/20/2015 NAVID JAQUEZ [facility], ALI FACP CCDS Ot I65.23 OCCLUSION AND STENOSIS OF BILATERAL [place] 12/20/2015 NAVID JAQUEZ [facility], ALI FACP CCDS Ot R06.09 OTHER FORMS OF DYSPNEA 03/04/2016 NAVID JAQUEZ [facility], ALI FACP CCDS Ot E78.4 OTHER HYPERLIPIDEMIA 03/04/2016 NAVID JAQUEZ [facility], ALI FACP CCDS Ot I10 ESSENTIAL (PRIMARY) HYPERTENSION 03/04/2016 NAVID JAQUEZ [facility], ALI FACP CCDS Ot I25.10 ATHSCL HEART DISEASE OF [place] CORONARY 03/04/2016 NAVID JAQUEZ [facility], ALI FACP CCDS Ot I65.23 OCCLUSION AND STENOSIS OF BILATERAL [place] 03/04/2016 NAVID JAQUEZ [facility], ALI FACP CCDS Ot R06.09 OTHER FORMS OF DYSPNEA 03/05/2016 BAIMA, TRACIE L PYROTECHNIC MIXER Ot E78.1 PURE HYPERGLYCERIDEMIA 03/05/2016 BAIMA, TRACIE L PYROTECHNIC MIXER Ot E78.4 OTHER HYPERLIPIDEMIA 03/05/2016 BAIMA, TRACIE L PYROTECHNIC MIXER Ot I10 ESSENTIAL (PRIMARY) HYPERTENSION 03/05/2016 BAIMA, TRACIE L PYROTECHNIC MIXER Ot I25.10 ATHSCL HEART DISEASE OF [place] CORONARY 03/05/2016 BAIMA, TRACIE L PYROTECHNIC MIXER Ot I65.23 OCCLUSION AND STENOSIS OF BILATERAL [place] 03/05/2016 BAIMA, TRACIE L PYROTECHNIC MIXER Ot Q21.1 ATRIAL SEPTAL DEFECT 04/21/2016 RUPA HAQUE CHECKING CLERK Ot R05 COUGH 04/21/2016 RUPA HAQUE CHECKING CLERK Ot R09.89 OTH SYMPTOMS AND SIGNS INVOLVING THE CIR 04/22/2016 BAIMA, TRACIE L PYROTECHNIC MIXER Ot E78.1 PURE HYPERGLYCERIDEMIA 04/22/2016 BAIMA, TRACIE L PYROTECHNIC MIXER Ot E78.4 OTHER HYPERLIPIDEMIA 04/22/2016 BAIMA, TRACIE L PYROTECHNIC MIXER Ot I10 ESSENTIAL (PRIMARY) HYPERTENSION 04/22/2016 ALEXTRACIE Cha PYROTECHNIC MIXER Ot I25.10 ATHSCL HEART DISEASE OF [place] CORONARY 04/22/2016 ALEXTRACIE Cha PYROTECHNIC MIXER Ot I65.23 OCCLUSION AND STENOSIS OF BILATERAL [place] 04/22/2016 ALEX TRACIE Eubanks PYROTECHNIC MIXER Ot Q21.1 ATRIAL SEPTAL DEFECT 05/28/2016 JELLY CHEEMA MD Ot M94.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, LEFT KNEE 05/28/2016 JELLY CHEEMA MD Ot Z01.812 ENCOUNTER FOR PREPROCEDURAL LABORATORY E 05/28/2016 JELLY CHEEMA MD Ot Z11.2 ENCOUNTER FOR SCREENING FOR OTHER BACTER 05/29/2016 JELLY CHEEMA MD Ot M94.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, LEFT KNEE 05/29/2016 JELLY CHEEMA MD Ot Z01.812 ENCOUNTER FOR PREPROCEDURAL LABORATORY E 05/29/2016 JELLY CHEEMA MD Ot Z11.2 ENCOUNTER FOR SCREENING FOR OTHER BACTER 06/03/2016 JELLY CHEEMA MD Ot E78.5 HYPERLIPIDEMIA, UNSPECIFIED 06/03/2016 JELLY CHEEMA MD Ot F32.9 MAJOR DEPRESSIVE DISORDER, SINGLE EPISOD 06/03/2016 JELLY CHEEMA MD Ot G47.33 OBSTRUCTIVE SLEEP APNEA (ADULT) (PEDIATR 06/03/2016 JELLY CHEEMA MD Ot I10 ESSENTIAL (PRIMARY) HYPERTENSION 06/03/2016 JELLY CHEEMA MD Ot M22.42 CHONDROMALACIA PATELLAE, LEFT KNEE 06/03/2016 JELLY CHEEMA MD Ot M23.8X2 OTHER INTERNAL DERANGEMENTS OF LEFT KNEE 06/03/2016 JELLY CHEEMA MD Ot R73.03 PREDIABETES 06/03/2016 JELLY CHEEMA MD Ot Z79.899 OTHER EP TECH (CURRENT) DRUG THERAPY 06/04/2016 JELLY CHEEMA MD Ot E78.5 HYPERLIPIDEMIA, UNSPECIFIED 06/04/2016 JELLY CHEEMA MD Ot F32.9 MAJOR DEPRESSIVE DISORDER, SINGLE EPISOD 06/04/2016 JELLY CHEEMA MD Ot G47.33 OBSTRUCTIVE SLEEP APNEA (ADULT) (PEDIATR 06/04/2016 JELLY CHEEMA MD Ot I10 ESSENTIAL (PRIMARY) HYPERTENSION 06/04/2016 JELLY CHEEMA MD Ot M22.42 CHONDROMALACIA PATELLAE, LEFT KNEE 06/04/2016 JELLY CHEEMA MD Ot M23.8X2 OTHER INTERNAL DERANGEMENTS OF LEFT KNEE 06/04/2016 JELLY CHEEMA MD Ot R73.03 PREDIABETES 06/04/2016 JELLY CHEEMA MD Ot Z79.899 OTHER PENITENTIARY (CURRENT) DRUG THERAPY 06/09/2016 JELLY CHEEMA MD Ot E78.5 HYPERLIPIDEMIA, UNSPECIFIED 06/09/2016 JELLY CHEEMA MD Ot F32.9 MAJOR DEPRESSIVE DISORDER, SINGLE EPISOD 06/09/2016 JELLY CHEEMA MD Ot G47.33 OBSTRUCTIVE SLEEP APNEA (ADULT) (PEDIATR 06/09/2016 JELLY CHEEMA MD Ot I10 ESSENTIAL (PRIMARY) HYPERTENSION 06/09/2016 JELLY CHEEMA MD Ot M22.42 CHONDROMALACIA PATELLAE, LEFT KNEE 06/09/2016 JELLY CHEEMA MD Ot M23.8X2 OTHER INTERNAL DERANGEMENTS OF LEFT KNEE 06/09/2016 JELLY CHEEMA MD Ot R73.03 PREDIABETES 06/09/2016 JELLY CHEEMA MD Ot Z79.899 OTHER EP TECH (CURRENT) DRUG THERAPY 09/10/2016 ALIA MORENO DO Ot E11.65 TYPE 2 DIABETES MELLITUS WITH HYPERGLYCE 09/10/2016 ALIA MORENO DO S Ot M10.9 GOUT, UNSPECIFIED 09/16/2016 TRACIE JOHNSON PYROTECHNIC MIXER Ot E78.4 OTHER HYPERLIPIDEMIA 09/16/2016 TRACIE JOHNSON L PYROTECHNIC MIXER Ot I10 ESSENTIAL (PRIMARY) HYPERTENSION 09/16/2016 TRACIE JOHNSON L PYROTECHNIC MIXER Ot I25.10 ATHSCL HEART DISEASE OF [place] CORONARY 09/16/2016 TRACIE JOHNSON L PYROTECHNIC MIXER Ot I65.23 OCCLUSION AND STENOSIS OF BILATERAL [place] 09/16/2016 TRACIE JOHNSON PYROTECHNIC MIXER Ot Q21.1 ATRIAL SEPTAL DEFECT 09/21/2016 TRACIE JOHNSON L PYROTECHNIC MIXER Ot E78.4 OTHER HYPERLIPIDEMIA 09/21/2016 ELOY JOHNSONHER L PYROTECHNIC MIXER Ot I10 ESSENTIAL (PRIMARY) HYPERTENSION 09/21/2016 TRACIE JOHNSON L PYROTECHNIC MIXER Ot I25.10 ATHSCL HEART DISEASE OF [place] CORONARY 09/21/2016 TRACIE JOHNSON L PYROTECHNIC MIXER Ot I65.23 OCCLUSION AND STENOSIS OF BILATERAL [place] 09/21/2016 BAITRACIE DAILEY L PYROTECHNIC MIXER Ot Q21.1 ATRIAL SEPTAL DEFECT 09/30/2016 ALIA MORENO DO S Ot E11.65 TYPE 2 DIABETES MELLITUS WITH HYPERGLYCE 09/30/2016 ALIA MORENO DO S Ot M10.9 GOUT, UNSPECIFIED 12/02/2016 BAIMA, TRACIE L PYROTECHNIC MIXER Ot E78.4 OTHER HYPERLIPIDEMIA 12/02/2016 BAIMA, TRACIE L PYROTECHNIC MIXER Ot I10 ESSENTIAL (PRIMARY) HYPERTENSION 12/02/2016 BAIMA, TRACIE L PYROTECHNIC MIXER Ot I25.10 ATHSCL HEART DISEASE OF [place] CORONARY 12/02/2016 BAIMA, TRACIE L PYROTECHNIC MIXER Ot I65.23 OCCLUSION AND STENOSIS OF BILATERAL [place] 12/02/2016 BAITRACIE DAILEY L PYROTECHNIC MIXER Ot Q21.1 ATRIAL SEPTAL DEFECT 07/06/2017 NAVID JAQUEZ FACC, ALI FACP CCDS Ot E78.4 OTHER HYPERLIPIDEMIA 07/06/2017 NAVID JAQUEZ FACC, ALI FACP CCDS Ot I10 ESSENTIAL (PRIMARY) HYPERTENSION 07/06/2017 NAVID JAQUEZ FACC, ALI FACP CCDS Ot I25.10 ATHSCL HEART DISEASE OF [place] CORONARY 07/06/2017 NAVID JAQUEZ FACC, ALI FACP CCDS Ot I65.23 OCCLUSION AND STENOSIS OF BILATERAL [place] 07/06/2017 NAVID JAQUEZ FACC, ALI FACP CCDS Ot R06.09 OTHER FORMS OF DYSPNEA 07/06/2017 CHIARATRACIE DAILEY L PYROTECHNIC MIXER Ot E78.1 PURE HYPERGLYCERIDEMIA 07/06/2017 BAIMA, TRACIE L PYROTECHNIC MIXER Ot E78.4 OTHER HYPERLIPIDEMIA 07/06/2017 BAIMA, TRACIE L PYROTECHNIC MIXER Ot I10 ESSENTIAL (PRIMARY) HYPERTENSION 07/06/2017 BAIMA, TRACIE L PYROTECHNIC MIXER Ot I25.10 ATHSCL HEART DISEASE OF [place] CORONARY 07/06/2017 BAIMAELOYTRACIE L PYROTECHNIC MIXER Ot I65.23 OCCLUSION AND STENOSIS OF BILATERAL [place] 07/06/2017 BAIMATRACIE L PYROTECHNIC MIXER Ot Q21.1 ATRIAL SEPTAL DEFECT 07/06/2017 RUPA HAQUE CHECKING CLERK Ot R05 COUGH 07/06/2017 RUPA HAQUE CHECKING CLERK Ot R09.89 OT SYMPTOMS AND SIGNS INVOLVING THE CIR 07/06/2017 BAIMA, TRACIE L PYROTECHNIC MIXER Ot E78.4 OTHER HYPERLIPIDEMIA 07/06/2017 BAIMA, TRACIE L PYROTECHNIC MIXER Ot I10 ESSENTIAL (PRIMARY) HYPERTENSION 07/06/2017 BAIMA, TRACIE L PYROTECHNIC MIXER Ot I25.10 ATHSCL HEART DISEASE OF [place] CORONARY 07/06/2017 BAIMA, TRACIE L PYROTECHNIC MIXER Ot I65.23 OCCLUSION AND STENOSIS OF BILATERAL [place] 07/06/2017 BAIMA, TRACIE L PYROTECHNIC MIXER Ot Q21.1 ATRIAL SEPTAL DEFECT 07/06/2017 BAIMA, TRACIE L PYROTECHNIC MIXER Ot E78.4 OTHER HYPERLIPIDEMIA 07/06/2017 BAIMA, TRACIE L PYROTECHNIC MIXER Ot I10 ESSENTIAL (PRIMARY) HYPERTENSION 07/06/2017 BAIMA, TRACIE L PYROTECHNIC MIXER Ot I25.10 ATHSCL HEART DISEASE OF [place] CORONARY 07/06/2017 BAIMA, TRACIE L PYROTECHNIC MIXER Ot I65.23 OCCLUSION AND STENOSIS OF BILATERAL [place] 07/06/2017 BAIMA, TRACIE L PYROTECHNIC MIXER Ot Q21.1 ATRIAL SEPTAL DEFECT 07/06/2017 ORENDER DO, ALIA S Ot E11.65 TYPE 2 DIABETES MELLITUS WITH HYPERGLYCE 07/06/2017 ORENDER DO, ALIA S Ot M10.9 GOUT, UNSPECIFIED 07/06/2017 ORENDER DO, ALIA S Ot E11.65 TYPE 2 DIABETES MELLITUS WITH HYPERGLYCE 07/06/2017 ORENDER DO, ALIA S Ot E11.65 TYPE 2 DIABETES MELLITUS WITH HYPERGLYCE 07/06/2017 ORENDER DO, ALIA S Ot E11.9 TYPE 2 DIABETES MELLITUS WITHOUT COMPLIC 07/06/2017 ORENDER DO, ALIA S Ot E78.2 MIXED HYPERLIPIDEMIA 07/06/2017 ORENDER DO, ALIA S Ot M10.9 GOUT, UNSPECIFIED 07/06/2017 ORENDER DO, ALIA S Ot K42.9 UMBILICAL HERNIA WITHOUT OBSTRUCTION OR 07/06/2017 ORENDER DO, ALIA S Ot K44.9 DIAPHRAGMATIC HERNIA WITHOUT OBSTRUCTION 07/06/2017 ORENDER DO, ALIA S Ot K76.0 FATTY (CHANGE OF) LIVER, NOT ELSEWHERE C 07/06/2017 BAIMA, TRACIE L PYROTECHNIC MIXER Ot E78.4 OTHER HYPERLIPIDEMIA 07/06/2017 ALEXTRACIE Cha PYROTECHNIC MIXER Ot I10 ESSENTIAL (PRIMARY) HYPERTENSION 07/06/2017 CHIARAASIM TRACIE Cha PYROTECHNIC MIXER Ot I25.10 ATHSCL HEART DISEASE OF [place] CORONARY 07/06/2017 CHIARATRACIE DAILEY PYROTECHNIC MIXER Ot I65.23 OCCLUSION AND STENOSIS OF BILATERAL [place] 07/12/2017 REECE MATOS MD Ot E66.9 OBESITY, UNSPECIFIED 07/12/2017 REECE MATOS MD Ot E78.5 HYPERLIPIDEMIA, UNSPECIFIED 07/12/2017 REECE MATOS MD Ot E87.6 HYPOKALEMIA 07/12/2017 REECE MATOS MD Ot F32.9 MAJOR DEPRESSIVE DISORDER, SINGLE EPISOD 07/12/2017 REECE MATOS MD Ot I10 ESSENTIAL (PRIMARY) HYPERTENSION 07/12/2017 REECE MATOS MD Ot I25.10 ATHSCL HEART DISEASE OF [place] CORONARY 07/12/2017 REECE MATOS MD Ot K22.70 BERGMAN'S ESOPHAGUS WITHOUT DYSPLASIA 07/12/2017 REECE MATOS MD Ot Q21.1 ATRIAL SEPTAL DEFECT 07/12/2017 REECE MATOS MD Ot Z09 ENCNTR FOR F/U EXAM AFT TRTMT FOR COND O 07/12/2017 REECE MATOS MD Ot Z68.35 BODY MASS INDEX (BMI) 35.0-35.9, ADULT 07/12/2017 REECE MATOS MD Ot Z79.82 EP TECH (CURRENT) USE OF ASPIRIN 07/12/2017 REECE MATOS MD Ot Z79.84 PENITENTIARY (CURRENT) USE OF ORAL HYPOGLYC 07/12/2017 REECE MATOS MD Ot Z79.899 OTHER PENITENTIARY (CURRENT) DRUG THERAPY 07/12/2017 REECE MATOS MD Ot Z80.0 FAMILY HISTORY OF MALIGNANT NEOPLASM OF 07/12/2017 REECE MATOS MD Ot Z86.010 PERSONAL HISTORY OF COLONIC POLYPS 07/12/2017 REECE MATOS MD Ot E66.9 OBESITY, UNSPECIFIED 07/12/2017 REECE MATOS MD Ot E78.5 HYPERLIPIDEMIA, UNSPECIFIED 07/12/2017 REECE MATOS MD Ot E87.6 HYPOKALEMIA 07/12/2017 REECE MATOS MD, Ot F32.9 MAJOR DEPRESSIVE DISORDER, SINGLE EPISOD 07/12/2017 REECE MATOS MD Ot I10 ESSENTIAL (PRIMARY) HYPERTENSION 07/12/2017 REECE MATOS MD, Ot I25.10 ATHSCL HEART DISEASE OF [place] CORONARY 07/12/2017 REECE MATOS MD Ot K22.70 BERGMAN'S ESOPHAGUS WITHOUT DYSPLASIA 07/12/2017 REECE MATOS MD Ot Q21.1 ATRIAL SEPTAL DEFECT 07/12/2017 REECE MATOS MD, Ot Z09 ENCNTR FOR F/U EXAM AFT TRTMT FOR COND O 07/12/2017 REECE MATOS MD, Ot Z68.35 BODY MASS INDEX (BMI) 35.0-35.9, ADULT 07/12/2017 REECE MATOS MD, Ot Z79.82 PENITENTIARY (CURRENT) USE OF ASPIRIN 07/12/2017 REECE MATOS MD Ot Z79.84 PENITENTIARY (CURRENT) USE OF ORAL HYPOGLYC 07/12/2017 REECE MATOS MD Ot Z79.899 OTHER EP TECH (CURRENT) DRUG THERAPY 07/12/2017 REECE MATOS MD Ot Z80.0 FAMILY HISTORY OF MALIGNANT NEOPLASM OF 07/12/2017 REECE MATOS MD Ot Z86.010 PERSONAL HISTORY OF COLONIC POLYPS 07/13/2017 REECE MATOS MD Ot E11.9 TYPE 2 DIABETES MELLITUS WITHOUT COMPLIC 07/13/2017 REECE MATOS MD Ot E78.5 HYPERLIPIDEMIA, UNSPECIFIED 07/13/2017 REECE MATOS MD, Ot F32.9 MAJOR DEPRESSIVE DISORDER, SINGLE EPISOD 07/13/2017 REECE MATOS MD Ot I10 ESSENTIAL (PRIMARY) HYPERTENSION 07/13/2017 REECE MATOS MD Ot I25.10 ATHSCL HEART DISEASE OF [place] CORONARY 07/13/2017 REECE MATOS MD Ot K43.9 VENTRAL HERNIA WITHOUT OBSTRUCTION OR GA 07/13/2017 REECE MATOS MD Ot Z79.84 PENITENTIARY (CURRENT) USE OF ORAL HYPOGLYC 07/13/2017 REECE MATOS MD Ot Z79.899 OTHER PENITENTIARY (CURRENT) DRUG THERAPY 07/13/2017 REECE MATOS MD Ot Z83.71 FAMILY HISTORY OF COLONIC POLYPS 07/13/2017 REECE MATOS MD Ot Z86.010 PERSONAL HISTORY OF COLONIC POLYPS 07/30/2017 REECE MATOS MD Ot E66.9 OBESITY, UNSPECIFIED 07/30/2017 REECE MATOS MD Ot E78.5 HYPERLIPIDEMIA, UNSPECIFIED 07/30/2017 REECE MATOS MD Ot E87.6 HYPOKALEMIA 07/30/2017 REECE MATOS MD Ot F32.9 MAJOR DEPRESSIVE DISORDER, SINGLE EPISOD 07/30/2017 REECE MATOS MD Ot I10 ESSENTIAL (PRIMARY) HYPERTENSION 07/30/2017 REECE MATOS MD Ot I25.10 ATHSCL HEART DISEASE OF [place] CORONARY 07/30/2017 REECE MATOS MD Ot K22.70 BERGMAN'S ESOPHAGUS WITHOUT DYSPLASIA 07/30/2017 REECE MATOS MD Ot Q21.1 ATRIAL SEPTAL DEFECT 07/30/2017 REECE MATOS MD Ot Z09 ENCNTR FOR F/U EXAM AFT TRTMT FOR COND O 07/30/2017 REECE MATOS MD Ot Z68.35 BODY MASS INDEX (BMI) 35.0-35.9, ADULT 07/30/2017 REECE MATOS MD Ot Z79.82 PENITENTIARY (CURRENT) USE OF ASPIRIN 07/30/2017 REECE AMTOS MD Ot Z79.84 PENITENTIARY (CURRENT) USE OF ORAL HYPOGLYC 07/30/2017 REECE MATOS MD Ot Z79.899 OTHER EP TECH (CURRENT) DRUG THERAPY 07/30/2017 REECE MATOS MD Ot Z80.0 FAMILY HISTORY OF MALIGNANT NEOPLASM OF 07/30/2017 REECE MATOS MD Ot Z86.010 PERSONAL HISTORY OF COLONIC POLYPS 09/28/2017 ORENDER DO, ALIA S Ot E11.9 TYPE 2 DIABETES MELLITUS WITHOUT COMPLIC 09/28/2017 ORENDER DO, ALIA S Ot M10.9 GOUT, UNSPECIFIED 09/28/2017 ORENDER DO, ALIA S Ot M25.50 PAIN IN UNSPECIFIED JOINT 10/20/2017 ORENDER DO, ALIA S Ot E11.9 TYPE 2 DIABETES MELLITUS WITHOUT COMPLIC 10/20/2017 ORENDER DO, ALIA S Ot M10.9 GOUT, UNSPECIFIED 10/20/2017 ORENDER DO, ALIA S Ot M25.50 PAIN IN UNSPECIFIED JOINT 10/21/2017 ORENDER DO, ALIA S Ot E11.9 TYPE 2 DIABETES MELLITUS WITHOUT COMPLIC 10/21/2017 ORENDER DO, ALIA S Ot M10.9 GOUT, UNSPECIFIED 10/21/2017 ORENDER DO, ALIA S Ot M25.50 PAIN IN UNSPECIFIED JOINT 10/21/2017 ORENDER DO, ALIA S Ot E11.9 TYPE 2 DIABETES MELLITUS WITHOUT COMPLIC 10/21/2017 ORENDER DO, ALIA S Ot M10.9 GOUT, UNSPECIFIED 10/21/2017 ORENDER DO, ALIA S Ot M25.50 PAIN IN UNSPECIFIED JOINT Procedures There is no data. Results Test Result Range Whole blood basic metabolic panel - 05/28/16 10:45 Serum or plasma sodium measurement (moles/volume) 135 mmol/L 135-145 Serum or plasma potassium measurement (moles/volume) 3.9 mmol/L 3.6-5.0 Serum or plasma chloride measurement (moles/volume) 101 mmol/L 98-107 Carbon dioxide 25 mmol/L 21-32 Serum or plasma anion gap determination (moles/volume) 9 mmol/L 5-14 Serum or plasma urea nitrogen measurement (mass/volume) 10 mg/dL 7-18 Serum or plasma creatinine measurement (mass/volume) 1.22 mg/dL 0.60-1.30 Serum or plasma urea nitrogen/creatinine mass ratio 8 NRG Serum or plasma creatinine measurement with calculation of estimated glomerular filtration rate 60 NRG Serum or plasma glucose measurement (mass/volume) 152 mg/dL 70-105 Serum or plasma calcium measurement (mass/volume) 9.5 mg/dL 8.5-10.1 Methicillin resistant Staphylococcus aureus (MRSA) screening culture - 10:45 Methicillin resistant Staphylococcus aureus (MRSA) screening culture NEG NRG Serum or plasma uric acid measurement (mass/volume) - 09/09/16 12:31 Serum or plasma uric acid measurement (mass/volume) 5.9 mg/dL 2.6-7.2 Hemoglobin A1c - 09/09/16 12:31 Hemoglobin A1c 7.5 % 4.5-6.2 Urine microalbumin measurement by test strip (mass/volume) - 09/09/16 12:31 Urine creatinine measurement (mass/volume) 94 % NRG Microalbumin [mass/volume] in urine 9.2 % 0.0-20.0 Microalbumin/creatinine [ratio] in urine 9.8 mg/g{Cre} 0.0-30.0 Comprehensive metabolic panel - 11/03/16 07:05 Serum or plasma sodium measurement (moles/volume) 138 mmol/L 135-145 Serum or plasma potassium measurement (moles/volume) 4.0 mmol/L 3.6-5.0 Serum or plasma chloride measurement (moles/volume) 103 mmol/L 98-107 Carbon dioxide 21 mmol/L 21-32 Serum or plasma anion gap determination (moles/volume) 14 mmol/L 5-14 Serum or plasma urea nitrogen measurement (mass/volume) 11 mg/dL 7-18 Serum or plasma creatinine measurement (mass/volume) 1.21 mg/dL 0.60-1.30 Serum or plasma urea nitrogen/creatinine mass ratio 9 NRG Serum or plasma creatinine measurement with calculation of estimated glomerular filtration rate > NRG Serum or plasma glucose measurement (mass/volume) 161 mg/dL 70-105 Serum or plasma calcium measurement (mass/volume) 9.5 mg/dL 8.5-10.1 Serum or plasma total bilirubin measurement (mass/volume) 0.5 mg/dL 0.1-1.0 Serum or plasma alkaline phosphatase measurement (enzymatic activity/volume) 71 U/L 40-136 Serum or plasma aspartate aminotransferase measurement (enzymatic activity/ volume) 20 U/L 5-34 Serum or plasma alanine aminotransferase measurement (enzymatic activity/volume ) 24 U/L 0-55 Serum or plasma protein measurement (mass/volume) 7.0 g/dL 6.4-8.2 Serum or plasma albumin measurement (mass/volume) 4.1 g/dL 3.2-4.5 Hemoglobin A1c - 11/03/16 07:05 Hemoglobin A1c 6.4 % 4.5-6.2 Comprehensive metabolic panel - 03/09/17 07:25 Serum or plasma sodium measurement (moles/volume) 140 mmol/L 135-145 Serum or plasma potassium measurement (moles/volume) 4.2 mmol/L 3.6-5.0 Serum or plasma chloride measurement (moles/volume) 102 mmol/L 98-107 Carbon dioxide 25 mmol/L 21-32 Serum or plasma anion gap determination (moles/volume) 13 mmol/L 5-14 Serum or plasma urea nitrogen measurement (mass/volume) 13 mg/dL 7-18 Serum or plasma creatinine measurement (mass/volume) 1.29 mg/dL 0.60-1.30 Serum or plasma urea nitrogen/creatinine mass ratio 10 NRG Serum or plasma creatinine measurement with calculation of estimated glomerular filtration rate 56 NRG Serum or plasma glucose measurement (mass/volume) 119 mg/dL 70-105 Serum or plasma calcium measurement (mass/volume) 10.3 mg/dL 8.5-10.1 Serum or plasma total bilirubin measurement (mass/volume) 0.7 mg/dL 0.1-1.0 Serum or plasma alkaline phosphatase measurement (enzymatic activity/volume) 51 U/L 40-136 Serum or plasma aspartate aminotransferase measurement (enzymatic activity/ volume) 17 U/L 5-34 Serum or plasma alanine aminotransferase measurement (enzymatic activity/volume ) 23 U/L 0-55 Serum or plasma protein measurement (mass/volume) 6.7 g/dL 6.4-8.2 Serum or plasma albumin measurement (mass/volume) 4.0 g/dL 3.2-4.5 Hemoglobin A1c - 03/09/17 07:25 Hemoglobin A1c 5.3 % 4.5-6.2 Complete blood count (CBC) with automated white blood cell (WBC) differential - 06/16/17 07:17 Blood leukocytes automated count (number/volume) 7.6 10*3/uL 4.3-11.0 Blood erythrocytes automated count (number/volume) 5.30 10*6/uL 4.35-5.85 Venous blood hemoglobin measurement (mass/volume) 15.2 g/dL 13.3-17.7 Blood hematocrit (volume fraction) 46 % 40-54 Automated erythrocyte mean corpuscular volume 86 [foz_us] 80-99 Automated erythrocyte mean corpuscular hemoglobin (mass per erythrocyte) 29 pg 25-34 Automated erythrocyte mean corpuscular hemoglobin concentration measurement ( mass/volume) 33 g/dL 32-36 Automated erythrocyte distribution width ratio 13.7 % 10.0-14.5 Automated blood platelet count (count/volume) 223 10*3/uL 130-400 Automated blood platelet mean volume measurement 8.7 [foz_us] 7.4-10.4 Automated blood neutrophils/100 leukocytes 68 % 42-75 Automated blood lymphocytes/100 leukocytes 24 % 12-44 Blood monocytes/100 leukocytes 6 % 0-12 Automated blood eosinophils/100 leukocytes 2 % 0-10 Automated blood basophils/100 leukocytes 0 % 0-10 Blood neutrophils automated count (number/volume) 5.1 10*3 1.8-7.8 Blood lymphocytes automated count (number/volume) 1.8 10*3 1.0-4.0 Blood monocytes automated count (number/volume) 0.5 10*3 0.0-1.0 Automated eosinophil count 0.2 10*3/uL 0.0-0.3 Automated blood basophil count (count/volume) 0.0 10*3/uL 0.0-0.1 Comprehensive metabolic panel - 06/16/17 07:17 Serum or plasma sodium measurement (moles/volume) 140 mmol/L 135-145 Serum or plasma potassium measurement (moles/volume) 4.1 mmol/L 3.6-5.0 Serum or plasma chloride measurement (moles/volume) 103 mmol/L 98-107 Carbon dioxide 26 mmol/L 21-32 Serum or plasma anion gap determination (moles/volume) 11 mmol/L 5-14 Serum or plasma urea nitrogen measurement (mass/volume) 14 mg/dL 7-18 Serum or plasma creatinine measurement (mass/volume) 1.37 mg/dL 0.60-1.30 Serum or plasma urea nitrogen/creatinine mass ratio 10 NRG Serum or plasma creatinine measurement with calculation of estimated glomerular filtration rate 52 NRG Serum or plasma glucose measurement (mass/volume) 120 mg/dL 70-105 Serum or plasma calcium measurement (mass/volume) 9.6 mg/dL 8.5-10.1 Serum or plasma total bilirubin measurement (mass/volume) 0.6 mg/dL 0.1-1.0 Serum or plasma alkaline phosphatase measurement (enzymatic activity/volume) 51 U/L 40-136 Serum or plasma aspartate aminotransferase measurement (enzymatic activity/ volume) 21 U/L 5-34 Serum or plasma alanine aminotransferase measurement (enzymatic activity/volume ) 25 U/L 0-55 Serum or plasma protein measurement (mass/volume) 7.1 g/dL 6.4-8.2 Serum or plasma albumin measurement (mass/volume) 4.1 g/dL 3.2-4.5 Serum or plasma uric acid measurement (mass/volume) - 06/16/17 07:17 Serum or plasma uric acid measurement (mass/volume) 7.2 mg/dL 2.6-7.2 Lipid 1996 panel - 06/16/17 07:17 Serum or plasma triglyceride measurement (mass/volume) 443 mg/dL <150 Serum or plasma cholesterol measurement (mass/volume) 223 mg/dL < 200 Serum or plasma cholesterol in HDL measurement (mass/volume) 39 mg/ dL 40-60 Cholesterol in LDL [mass/volume] in serum or plasma by direct assay 126 mg/dL 1-129 Serum or plasma cholesterol in VLDL measurement (mass/volume) TNP 5-40 THYROID STIMULATING HORMONE - 06/16/17 07:17 THYROID STIMULATING HORMONE 3.23 u[iU]/mL 0.35-4.94 Hemoglobin A1c - 06/16/17 07:17 Hemoglobin A1c 6.4 % 4.5-6.2 Methicillin resistant Staphylococcus aureus (MRSA) screening culture - 14:00 Methicillin resistant Staphylococcus aureus (MRSA) screening culture NEG NRG Capillary blood glucose measurement by glucometer (mass/volume) - 07/12/17 08: 01 Capillary blood glucose measurement by glucometer (mass/volume) 106 mg/dL 70-110 Comprehensive metabolic panel - 09/24/17 07:12 Serum or plasma sodium measurement (moles/volume) 141 mmol/L 135-145 Serum or plasma potassium measurement (moles/volume) 4.4 mmol/L 3.6-5.0 Serum or plasma chloride measurement (moles/volume) 104 mmol/L 98-107 Carbon dioxide 22 mmol/L 21-32 Serum or plasma anion gap determination (moles/volume) 15 mmol/L 5-14 Serum or plasma urea nitrogen measurement (mass/volume) 13 mg/dL 7-18 Serum or plasma creatinine measurement (mass/volume) 1.30 mg/dL 0.60-1.30 Serum or plasma urea nitrogen/creatinine mass ratio 10 NRG Serum or plasma creatinine measurement with calculation of estimated glomerular filtration rate 56 NRG Serum or plasma glucose measurement (mass/volume) 123 mg/dL 70-105 Serum or plasma calcium measurement (mass/volume) 9.5 mg/dL 8.5-10.1 Serum or plasma total bilirubin measurement (mass/volume) 0.6 mg/dL 0.1-1.0 Serum or plasma alkaline phosphatase measurement (enzymatic activity/volume) 51 U/L 40-136 Serum or plasma aspartate aminotransferase measurement (enzymatic activity/ volume) 20 U/L 5-34 Serum or plasma alanine aminotransferase measurement (enzymatic activity/volume ) 26 U/L 0-55 Serum or plasma protein measurement (mass/volume) 6.7 g/dL 6.4-8.2 Serum or plasma albumin measurement (mass/volume) 4.1 g/dL 3.2-4.5 Serum or plasma uric acid measurement (mass/volume) - 09/24/17 07:12 Serum or plasma uric acid measurement (mass/volume) 7.1 mg/dL 2.6-7.2 THYROID STIMULATING HORMONE - 09/24/17 07:12 THYROID STIMULATING HORMONE 3.36 u[iU]/mL 0.35-4.94 Hemoglobin A1c - 09/24/17 07:12 Blood hemoglobin A1C measurement (mass/volume) 6.0 % 4.0- 5.6 MEAN BLOOD GLUCOSE 126 % <=126 Encounters ACCT No. Visit Date/Time Discharge Status Pt. Type Provider Facility Loc./Unit Complaint [id number] 09/24/2017 07:04:00 09/24/2017 23:59:59 CLS Outpatient ALIA MORENO DO [facility] LAB SEE ORDER [id number] 07/12/2017 07:51:00 07/13/2017 12:30:00 DIS Outpatient REECE MATOS MD [facility] SDC VENTRAL HERNIA [id number] 07/06/2017 13:24:00 07/06/2017 23:59:59 CLS Outpatient REECE MATOS MD [facility] ENDO PERSONAL HX POLYPS/ BARRETTS ESOPHAGUS [id number] 07/06/2017 05:40:00 07/06/2017 14:09:00 DIS Outpatient REECE MATOS MD [facility] PREOP VENTRAL HERNIA [id number] 07/05/2017 05:34:00 07/05/2017 10:44:00 DIS Outpatient REECE MATOS MD [facility] PREOP COLONOSCOPY/EGD [id number] 07/02/2017 08:01:00 07/02/2017 23:59:59 CLS Outpatient BAITRACIE DAILEY L PYROTECHNIC MIXER [facility] CARD CAD [id number] 06/22/2017 12:36:00 06/22/2017 23:59:59 CLS Outpatient ORENDER DO, ALIA S [facility] RAD SEVERE RLQ/LLQ PAIN , UMBILICAL HERNIA [id number] 06/16/2017 07:08:00 06/16/2017 23:59:59 CLS Outpatient ORENDER DO, ALIA S [facility] LAB E11.9,E78.2 [id number] 03/09/2017 07:14:00 03/09/2017 23:59:59 CLS Outpatient ORENDER DO, ALIA S [facility] LAB E11.65 [id number] 11/03/2016 06:59:00 11/03/2016 23:59:59 CLS Outpatient ORENDER DO, ALIA S [facility] LAB E11.65 [id number] 09/15/2016 12:38:00 09/15/2016 23:59:59 CLS Outpatient BAIELOY DAILEYHER L PYROTECHNIC MIXER [facility] CARD ASD,CAD,CAROTID ARTERY NARROWING,HTN,HLD [id number] 09/09/2016 12:06:00 09/09/2016 23:59:59 CLS Outpatient ORENDER DO, ALIA S [facility] LAB GOUT,E11.65 [id number] 07/14/2016 07:31:00 07/14/2016 23:59:59 CLS Outpatient BAIMA TRACIE L PYROTECHNIC MIXER [facility] LAB CAD,ASD,HLD,HTN, CAROTID ARTERY NARROWING [id number] 06/03/2016 06:02:00 06/03/2016 10:02:00 DIS Outpatient JELLY CHEEMA MD [facility] SDC LEFT KNEE CHRONDROMALASIA [id number] 05/28/2016 10:22:00 05/28/2016 10:50:00 DIS Outpatient JELLY CHEEMA MD [facility] PREOP LEFT KNEE CHONDROMALASIA [id number] 04/20/2016 14:02:00 04/20/2016 23:59:59 CLS Outpatient RUPA HAQUE APRN [facility] RAD COUGH,CHEST CONGESTION [id number] 03/04/2016 06:32:00 03/04/2016 23:59:59 CLS Outpatient TRACIE JOHNSON [facility] LAB CAD,HLD, HYPERTRIGLYCERIDEMIA,HTN,CAROTID ARTERY NA [id number] 11/18/2015 06:48:00 11/18/2015 23:59:59 CLS Outpatient NAVID JAQUEZ FACC, ALI FACP CCDS [facility] LAB CAD,HLD,HTN, NOLEN [id number] 06/26/2015 07:20:00 06/26/2015 12:10:00 DIS Outpatient JELLY CHEEMA MD [facility] [id number] 06/25/2015 11:58:00 06/25/2015 23:59:59 CLS Outpatient JELLY CHEEMA MD [facility] PREOP [id number] 06/24/2015 07:01:00 06/24/2015 10:05:00 DIS Outpatient REECE MATOS MD [facility] [id number] 06/19/2015 05:41:00 06/19/2015 23:59:59 CLS Outpatient REECE MATOS MD [facility] PREOP [id number] 04/23/2015 06:38:00 04/23/2015 23:59:59 CLS Outpatient YISSEL SHOEMAKER MD, FACC FACP CCDS [facility] LAB [id number] 01/14/2015 07:06:00 01/14/2015 23:59:59 CLS Outpatient NAVID JAQUEZ FACC ALI FACP CCDS [facility] LAB [id number] 01/04/2015 11:40:00 01/04/2015 13:28:00 DIS Outpatient NAVID JAQUEZ FACC ALI FACP CCDS [facility] [id number] 11/05/2014 07:36:00 11/05/2014 23:59:59 CLS Outpatient TRACIE JOHNSON [facility] LAB [id number] 09/18/2014 09:00:00 09/18/2014 23:59:59 CLS Preadmit NAVID JAQUEZ FACMague, YISSEL CALERO CCDS [facility] [id number] 09/13/2014 08:00:00 09/13/2014 23:59:59 CLS Preadmit NAVID JAQUEZ FACC, YISSEL FACP CCDS [facility] [id number] 09/04/2014 06:36:00 09/04/2014 23:59:59 CLS Outpatient MIKEYGREGORIO MILTON Geeta PYROTECHNIC MIXER [facility] LAB [id number] 08/14/2014 10:04:00 08/14/2014 23:59:59 CLS Outpatient ALIA MORENO DO [facility] [id number] 05/25/2014 07:07:00 05/25/2014 23:59:59 CLS Outpatient ALIA MORENO DO [facility] LAB [id number] 02/24/2013 09:24:00 02/24/2013 23:59:59 CLS Outpatient [id number] 01/06/2013 09:02:00 01/06/2013 12:15:00 DIS Outpatient [id number] 01/05/2013 07:15:00 01/05/2013 23:59:59 CLS Outpatient [id number] 03/13/2011 22:43:00 Document Registration 09/201611/26/2017 14:32:39 11/26/2017 23:59:59 CLS Outpatient Alia Moreno
[2018-01-03] MEDS ORDERED: ACETAMINOPHEN 500 MG TAB (TYLENOL) ONE (17:45)
[2018-01-03] MEDS: ACETAMINOPHEN 500 MG TAB (TYLENOL) PO PRN (17:45)
[2018-01-03] MEDS ORDERED: VANCOMYCIN 1000 MG/VIAL ONE (17:59)
[2018-01-03] MEDS ORDERED: NS IV 1000 ML 1,000 ML ONE (17:59)
[2018-01-03] MEDS: NS IV 1000 ML 1,000 ML IV SCH (18:00)
[2018-01-03] MEDS ORDERED: NS (IVPB) 250 ML ONE (18:00)
[2018-01-03] MEDS ORDERED: ONDANSETRON 4 MG/2 ML (SDV) Z0FRAN ONE (18:12)
[2018-01-03] MEDS ORDERED: IBUPROFEN 600 MG (MOTRIN) TAB PO ONE (18:13)
[2018-01-03] MEDS ORDERED: ONDANSETRON 4 MG/2 ML (SDV) Z0FRAN IVP PRN (18:15)
[2018-01-03 18:27] VITALS: BP 170/82
[2018-01-03] MEDS: VANCOMYCIN 1 GM/NS 250 ML IVPB IV NR ×4 (18:30→19:04)
[2018-01-03] MEDS ORDERED: CATHETER FLUSH 10 ML SYR IV PRN (18:30)
[2018-01-03 19:15] VITALS: BP 158/78
[2018-01-03] MEDS: RT-ALBUTEROL/IPRATROPIUM 3 ML (DUONEB) VIAL INH SCH (21:46)
[2018-01-04] VITALS (7 sets, daily range): BP systolic 135–175; BP diastolic 61–82
[2018-01-04] MEDS: ACETAMINOPHEN 500 MG TAB (TYLENOL) PO PRN ×3 (00:54→16:23)
[2018-01-04] MEDS: RT-ALBUTEROL/IPRATROPIUM 3 ML (DUONEB) VIAL INH SCH ×6 (02:21→21:32)
[2018-01-04] MEDS: NS IV 1000 ML 1,000 ML IV SCH ×4 (04:04→22:56)
[2018-01-04] MEDS: IBUPROFEN 600 MG (MOTRIN) TAB PO PRN ×3 (05:18→23:06)
[2018-01-04 06:06] LABS: BASOPHILS % (AUTO) 0 % (0-10); EOSINOPHILS % (AUTO) 0 % (0-10); HEMATOCRIT 40 % (40-54); HEMOGLOBIN 13.7 G/DL (13.3-17.7); LYMPHOCYTES # (AUTO) 0.6 X 10^3 (1.0-4.0); LYMPHOCYTES % (AUTO) 7 % (12-44); MEAN CORPUSCULAR HEMOGLOBIN 31 PG (25-34); MEAN CORPUSCULAR HGB CONC 34 G/DL (32-36); MEAN CORPUSCULAR VOLUME 89 FL (80-99); MEAN PLATELET VOLUME 8.8 FL (7.4-10.4); MONOCYTES # (AUTO) 0.4 X 10^3 (0.0-1.0); MONOCYTES % (AUTO) 4 % (0-12); NEUTROPHILS # (AUTO) 7.7 X 10^3 (1.8-7.8); NEUTROPHILS % (AUTO) 89 % (42-75); PLATELET COUNT 125 10^3/uL (130-400); RED BLOOD COUNT 4.49 10^6/uL (4.35-5.85); RED CELL DISTRIBUTION WIDTH 14.6 % (10.0-14.5); WHITE BLOOD COUNT 8.6 10^3/uL (4.3-11.0)
[2018-01-04 06:37] LABS: ALBUMIN 3.5 GM/DL (3.2-4.5); BILIRUBIN,TOTAL 0.6 MG/DL (0.1-1.0); CALCIUM 8.5 MG/DL (8.5-10.1); CREATININE SERUM 1.34 MG/DL (0.60-1.30); POTASSIUM 4.1 MMOL/L (3.6-5.0); TOTAL PROTEIN 6.3 GM/DL (6.4-8.2)
[2018-01-04] MEDS ORDERED: VANCOMYCIN 1 GM/NS 250 ML IVPB IV SCH ×2 (07:00)
[2018-01-04] MEDS ORDERED: FENO135C4 PO (13:22)
[2018-01-04] MEDS ORDERED: ARIP2TAB3 PO (13:22)
[2018-01-04] MEDS ORDERED: ESOM40CA52 PO (13:22)
[2018-01-04] MEDS ORDERED: TRAZ100T92 PO (13:22)
[2018-01-04] MEDS ORDERED: METF500T8 PO (13:30)
[2018-01-04] MEDS: ENOXAPARIN 40 MG/0.4 ML (LOVENOX) SYR SC SCH (13:33)
[2018-01-04] MEDS ORDERED: metFORMIN 500 MG (GLUCOPHAGE) TAB PO SCH (17:00)
[2018-01-04] MEDS: metFORMIN XR 500 MG (GLUCOPHAGE XR) TAB PO SCH (17:58)
[2018-01-04] MEDS ORDERED: TROUGH ORDER-PHARMACY XX NR (18:00)
--- NOTE | 2018-01-04 19:14 | History & Physicial ---
History of Present Illness History of Present Illness Reason for visit/HPI This is a 62 year old male who had got up early to go to a meeting and then returned about 8am and parked his truck in the grass which is an unusual place for him to park. He went inside and laid down on the couch for about 2 hours. His just felt that he was tired as he had worked out in the yard most of the day the day prior. However, when she checked on him she noticed that he was confused and had concerns that he may be having a stroke. He was taken to the emergency room where he was evaluated for a stroke. This workup was negative but he was found to have an elevated WBC count at 13.5 and he was febrile. He was also found to have acute dehydration with acute renal insufficiency with a creatinine of 1.64. He appeared sunburned but his left lower leg was redder with increased warmth and tenderness and swelling compared to his right lower leg. It was felt that he likely had acute cellulitis of his left lower extremity with early sepsis and should be admitted for IVFs, IV antibiotics and further evaluation. Date of Admission Jan 03, 2018 at 4:45 pm Date Seen by Provider: Jan 04, 2018 Time Seen by Provider: 12:30 I consulted on this patient on 01/04/18 19:08 Attending Physician Alia Moreno DO Admitting Physician Alia Moreno DO Consult Allergies and Home Medications Allergies Coded Allergies: No Known Drug Allergies (Verified , 05/19/08) Uncoded Allergies: [id number] (HAYFEVER) (Allergy, Mild, 12/21/08) Home Medications Acetaminophen 500 Mg Tablet, 1,000 MG PO BID, (Reported) Allopurinol 100 Mg Tablet, 100 MG PO BID, (Reported) Aripiprazole 2 Mg Tablet, 2 MG PO DAILY, (Reported) Aspirin 81 Mg Tablet., 81 MG PO DAILY, (Reported) Atorvastatin Calcium 80 Mg Tablet, 80 MG PO HS, (Reported) Cholecalciferol (Vitamin D3) 1,000 Unit Tablet, 1,000 UNIT PO DAILY, (Reported) Cyanocobalamin (Vitamin B-12) 1,000 Mcg Tablet, 1,000 MCG PO DAILY, (Reported) Esomeprazole Magnesium 40 Mg Capsule.dr, 40 MG PO BID, (Reported) Fenofibric Acid (Choline) 135 Mg Capsule.dr, 135 MG PO HS, (Reported) Fluoxetine HCl 40 Mg Capsule, 40 MG PO HS, (Reported) Folic Acid 0.4 Mg Tablet, 0.4 MG PO HS, (Reported) Furosemide 40 Mg Tablet, 40 MG PO DAILY, (Reported) Metformin HCl 500 Mg Tab.er.24h, 500 MG PO BID WITH MEALS, (Reported) Metoprolol Tartrate 50 Mg Tablet, 50 MG PO BID, (Reported) [place] 3 Polyunsat Fatty Acids 1,000 Mg Cap, 1,000 MG PO BID, (Reported) Potassium Chloride 20 Meq Tab.er.prt, 20 MEQ PO DAILY, (Reported) Tramadol HCl 50 Mg Tablet, 50 MG PO DAILY, (Reported) Tramadol HCl 50 Mg Tablet, 100 MG PO HS, (Reported) TAKES 2 (50MG) TABLETS Trazodone HCl 100 Mg Tablet, 50 MG PO HS, (Reported) TAKES 1/2 (100MG) TABLET Ubidecarenone 200 Mg Capsule, 200 MG PO DAILY, (Reported) Patient Home Medication List Home Medication List Reviewed: Yes Past Ailrqtg-Pgxccd-Hktyfb Hx Patient Social History Marrital Status: Employed/Student: retired Alcohol Use: Past History Number of Drinks Today: 0 Alcohol Beverage of Choice: Beer Recreational Drug Use: No Smoking Status: Never a Smoker Former Smoker, Quit: Jun 03, 1981 Type Used: Smokeless Tobacco 2nd Hand Smoke Exposure: No Physical Abuse Screen: No Sexual Abuse: No Recent Foreign Travel: No Contact w/other who traveled: No Recent Hopitalizations: No Recent Infectious Disease Expo: No Immunizations Up To Date Tetanus Booster (TDap): More than 5yrs Date of Pneumonia Vaccine: Aug 14, 2008 Date of Influenza Vaccine: Apr 25, 2016 Seasonal Allergies Seasonal Allergies: Yes Surgeries Yes (CARPEL TUNNEL SARAHI,ANTERIOR COMPARTMENT SYNDROM R LEG, BILAT knee scope, ) Orthopedic, Tonsillectomy Respiratory No Currently Using CPAP: No Currently Using BIPAP: No Cardiovascular Yes (2 STENTS) Chronic Edema/Swelling, Coronary Artery Disease, High Cholesterol, Hypertension Neurological No Reproductive System Hx Reproductive Disorders: No Sexually Transmitted Disease: No HIV/AIDS: No Genitourinary Yes Benign Prostatic Hyperpl Gastrointestinal Yes (UMB HERNIA REPAIR) Gastroesophageal Reflux, Larios's Esophagus Musculoskeletal Yes Degenerate Disk Disease, Arthritis, Chronic Back Pain, Gout Endocrine History of Endocrine Disorders: Yes Endocrine Disorders: Diabetes, Non-Insulin dep HEENT History of HEENT Disorders: No Loss of Vision: Denies Hearing Impairment: Denies Cancer No Psychosocial History of Psychiatric Problem: Yes Behavioral Health Disorders: Depression Integumentary History of Skin or Integumenta: Yes (CELLULITIS LEFT LOWER EXTREMITY) Blood Transfusions History of Blood Disorders: No Constitutional: diaphoresis, fever, weakness EENTM: No see HPI, No no symptoms reported, No ear discharge, No hearing loss, No ear pain, No blurred vision, No double vision, No eye pain, No tearing, No vision loss, No dental problems, No hoarseness, No mouth pain, No mouth swelling , No epistaxis, No nose congestion, No nose pain, No throat pain, No throat swelling, No other Respiratory: No no symptoms reported, No see HPI, No cough, No dyspnea on exertion, No hemoptysis, No orthopnea, No phlegm, No short of breath, No stridor , No wheezing, No other Cardiovascular: No no symptoms reported, No see HPI, No chest pain, No edema, No Hx of Intervention, No palpitations, No syncope, No vascular heart diseas, No other Gastrointestinal: abdominal pain (cramping), diarrhea, nausea Genitourinary: decreased output Musculoskeletal: back pain, joint pain, muscle weakness Skin: change in color (sunburn but left lower leg redder ) Psychiatric/Neurological: Headache, Weakness Physical Exam Vital Signs Vital Signs - First Documented Capillary Refill : Less Than 3 Seconds General Appearance: No Apparent Distress HEENT: Normal ENT Inspection Neck: Supple Respiratory: Crackles (bases--faint), Decreased Breath Sounds Cardiovascular: Regular Rate, Rhythm, Systolic Murmur Gastrointestinal: Normal Bowel Sounds, Non Tender, Soft Rectal: Deferred Back: No CVA Tenderness Extremity: Pedal Edema (left 2 plus and right trace) Neurologic/Psychiatric: Alert, Oriented x3, Motor Weakness Skin: Erythema (to left lower leg with increased warmth and swelling) Comments Laboratory Tests 01/04/18 05:50: White Blood Count 8.6, Red Blood Count 4.49, Hemoglobin 13.7, Hematocrit 40, Mean Corpuscular Volume 89, Mean Corpuscular Hemoglobin 31, Mean Corpuscular Hemoglobin Concent 34, Red Cell Distribution Width 14.6H, Platelet Count 125L, Mean Platelet Volume 8.8, Neutrophils (%) (Auto) 89H, Lymphocytes (%) (Auto) 7L , Monocytes (%) (Auto) 4, Eosinophils (%) (Auto) 0, Basophils (%) (Auto) 0, Neutrophils # (Auto) 7.7, Lymphocytes # (Auto) 0.6L, Monocytes # (Auto) 0.4, Eosinophils # (Auto) 0.0, Basophils # (Auto) 0.0, Sodium Level 137, Potassium Level 4.1, Chloride Level 104, Carbon Dioxide Level 21, Anion Gap 12, Blood Urea Nitrogen 17, Creatinine 1.34H, Estimat Glomerular Filtration Rate 54, BUN/ Creatinine Ratio 13, Glucose Level 130H, Calcium Level 8.5, Total Bilirubin 0.6 , Aspartate Amino Transf (AST/SGOT) 24, Alanine Aminotransferase (ALT/SGPT) 22, Alkaline Phosphatase 38L, Total Protein 6.3L, Albumin 3.5, Triglycerides Level 243H, Cholesterol Level 155, LDL Cholesterol Direct 78, VLDL Cholesterol 49H, HDL Cholesterol 32L 01/04/18 18:23: Vancomycin Level Trough 8.1L Microbiology 01/03/18 Blood Culture - Preliminary, Resulted No growth Assessment/Plan Assessment and Plan 1. Acute Left Lower Extremity with SIRS--admit and cover with IV Rocephin and IV Vancomycin 2. Heat Exhaustion with Acute Dehydration and Acute on Chronic Renal Insufficiency--Hydrate and monitor creatinine and urine output 3. Hypertension--resume metoprolol 4. GERD with History of Larios's Esophagitis--resume protonix 5. Diabetes mellitus--start accuchecks with SSI and restart metformin Admission Diagnosis Admission Status: Inpatient Order (span 2 midnights) Reason for Inpatient Admission: Will need IV antibiotics for a minimum of 2 midnights Clinical Quality Measures DVT/VTE Risk/Contraindication: Risk Factor Score Per Nursin RFS Level Per Nursing on Admit: 4+=Very High Stroke: Date of last known well: Jan 03, 2018 Time of last known well: 08:10 Symptoms onset unknown: ALIA Gant DO Jan 04, 2018 7:14 pm
[2018-01-04] MEDS: VANCOMYCIN 1250 MG/NS 250 ML IVPB IV SCH ×2 (19:15)
[2018-01-04] MEDS: inSUlin ASPART (NovoLOG) 1 UNIT/0.01 ML (CHARGE PER UNIT) SC SCH (20:56)
[2018-01-04] MEDS ORDERED: NON-FORMULARY MEDICATION 1 EA EA (Folic Acid 0.4 MG) PO SCH (21:00)
[2018-01-04] MEDS: traZODone 50 MG (DESYREL) TAB PO SCH (21:06)
[2018-01-04] MEDS: FLUoxetine HCL 20 MG (PROzac) CAP PO SCH (21:06)
[2018-01-04] MEDS: FOLIC ACID 1 MG TAB PO SCH (21:06)
[2018-01-04] MEDS: meTOprolol TARTRATE 50 MG (LOPRESSOR) TAB PO SCH (21:08)
[2018-01-05] VITALS (15 sets, daily range): BP systolic 140–183; BP diastolic 77–105
[2018-01-05] MEDS: RT-ALBUTEROL/IPRATROPIUM 3 ML (DUONEB) VIAL INH SCH ×6 (01:43→22:07)
[2018-01-05 06:04] LABS: BASOPHILS % (AUTO) 0 % (0-10); EOSINOPHILS % (AUTO) 0 % (0-10); HEMATOCRIT 37 % (40-54); HEMOGLOBIN 12.3 G/DL (13.3-17.7); LYMPHOCYTES # (AUTO) 0.8 X 10^3 (1.0-4.0); LYMPHOCYTES % (AUTO) 12 % (12-44); MEAN CORPUSCULAR HEMOGLOBIN 29 PG (25-34); MEAN CORPUSCULAR HGB CONC 33 G/DL (32-36); MEAN CORPUSCULAR VOLUME 89 FL (80-99); MEAN PLATELET VOLUME 8.8 FL (7.4-10.4); MONOCYTES # (AUTO) 0.4 X 10^3 (0.0-1.0); MONOCYTES % (AUTO) 6 % (0-12); NEUTROPHILS # (AUTO) 5.2 X 10^3 (1.8-7.8); NEUTROPHILS % (AUTO) 82 % (42-75); PLATELET COUNT 123 10^3/uL (130-400); RED BLOOD COUNT 4.17 10^6/uL (4.35-5.85); RED CELL DISTRIBUTION WIDTH 14.8 % (10.0-14.5); WHITE BLOOD COUNT 6.3 10^3/uL (4.3-11.0)
[2018-01-05] MEDS: metFORMIN XR 500 MG (GLUCOPHAGE XR) TAB PO SCH ×2 (06:04→17:56)
[2018-01-05] MEDS: VANCOMYCIN 1250 MG/NS 250 ML IVPB IV SCH ×4 (06:04→18:52)
[2018-01-05] MEDS: PANTOPRAZOLE 40 MG (PROTONIX) TAB PO SCH (06:04)
[2018-01-05 06:39] LABS: ALANINE AMINOTRANSFERASE 49 U/L (0-55); ALBUMIN 3.1 GM/DL (3.2-4.5); ALKALINE PHOSPHATASE 50 U/L (40-136); BILIRUBIN,TOTAL 0.6 MG/DL (0.1-1.0); BUN/CREATININE RATIO 11; CALCIUM 8.3 MG/DL (8.5-10.1); CARBON DIOXIDE 22 MMOL/L (21-32); CHLORIDE 108 MMOL/L (98-107); CREATININE SERUM 1.16 MG/DL (0.60-1.30); GFR ESTIMATED > 60; GLUCOSE 116 MG/DL (70-105); POTASSIUM 4.1 MMOL/L (3.6-5.0); SODIUM 138 MMOL/L (135-145); TOTAL PROTEIN 5.7 GM/DL (6.4-8.2)
[2018-01-05] MEDS: inSUlin ASPART (NovoLOG) 1 UNIT/0.01 ML (CHARGE PER UNIT) SC SCH ×4 (06:47→21:27)
[2018-01-05] MEDS: meTOprolol TARTRATE 50 MG (LOPRESSOR) TAB PO SCH ×2 (08:52→21:21)
[2018-01-05] MEDS: ASPIRIN E.C. 81 MG (ECOTRIN) TAB PO SCH (08:52)
[2018-01-05] MEDS: CYANOCOBALAMIN 1,000 MCG (VITAMIN B-12) TABLET PO SCH (08:53)
[2018-01-05] MEDS: ARIPIPRAZOLE 2 MG (ABILIFY) TAB PO SCH (08:55)
[2018-01-05] MEDS ORDERED: FUROSEMIDE 40 MG/4 ML INJ (LASIX) ONE (09:31)
[2018-01-05] MEDS ORDERED: FUROSEMIDE 40 MG/4 ML INJ (LASIX) IVP ONE (09:45)
--- NOTE | 2018-01-05 10:14 | Diagnostic Imaging Report ---
INDICATION: Difficulty breathing, history of congestive heart failure. Time of exam: 9:43 AM Correlation is made with prior study from 01/03/2018. The heart size is stable. There appears to be very mild interstitial changes which may be owing to mild interstitial edema. No airspace infiltrate is seen. There is some prominence of the pulmonary vascularity centrally. No effusion or pneumothorax is seen. IMPRESSION: Findings suggestive of mild congestive failure. Dictated by: Dictated on workstation # [id number]
[2018-01-05] MEDS: ACETAMINOPHEN 500 MG TAB (TYLENOL) PO PRN (11:21)
[2018-01-05] MEDS ORDERED: methylPREDNISolone 125 MG (Solu-MEDROL) VIAL ONE (11:26)
[2018-01-05] MEDS ORDERED: methylPREDNISolone 125 MG (Solu-MEDROL) VIAL IVP ONE (11:30)
[2018-01-05] MEDS ORDERED: RT-ALBUTEROL/IPRATROPIUM 3 ML (DUONEB) VIAL INH PRN (12:00)
[2018-01-05] MEDS ORDERED: FUROSEMIDE 40 MG/4 ML INJ (LASIX) IVP NR (12:02)
[2018-01-05] MEDS ORDERED: DOXYCYCLINE INJECTION 100 MG in NS (IVPB) 100 ML IV ONE (12:45)
[2018-01-05] MEDS: ENOXAPARIN 40 MG/0.4 ML (LOVENOX) SYR SC SCH (13:07)
[2018-01-05] MEDS ORDERED: KCL 8 MEQ (MICRO K) TABLET PO NR (13:28)
--- NOTE | 2018-01-05 13:36 | Consultation-Cardiology ---
HPI-Cardiology Cardiology Consultation Date of Consultation 01/05/18 Date of Admission Time Seen by Provider: 13:30 Indication: Shortness of breath HPI 62 years old gentleman with extensive history of coronary artery disease, hypertension and hyperlipidemia. Was found by his family member confused yesterday, he was admitted to the hospital with sepsis and started on aggressive IV fluid replacement in addition to the antibiotics and he was doing better this morning than he started having increasing shortness of breath which he came more severe, responded to IV diuretics and steroids. Feeling slightly better still using BiPAP at this time. Denied any chest pain. History was obtained by interviewing his who is a nurse in our hospital. He has extensive cardiac history but no history of heart failure, last echocardiogram was done in August 2016 and it was normal. Has been followed by Dr. Cr. Home Medications & Allergies Allergies: Coded Allergies: No Known Drug Allergies (Verified , 05/19/08) Uncoded Allergies: [id number] (HAYFEVER) (Allergy, Mild, 12/21/08) Home Medication List Reviewed: Yes ZLZ-Vourlb-Gumvtj Hx Patient Social History Marital Status: Employed/Student: retired Alcohol Use: Past History Recreational Drug Use: No Smoking Status: Never a Smoker Former smoker/When Quit: Sep 13, 1974 Type Used: Smokeless Tobacco 2nd Hand Smoke Exposure: No Recent Foreign Travel: No Recent Infectious Disease Expo: No Recent Hopitalizations: No Physical Abuse Screen: No Sexual Abuse: No Immunizations Up To Date Tetanus Booster (TDap): More than 5yrs Date of Pneumonia Vaccine: Aug 14, 2008 Date of Influenza Vaccine: Apr 25, 2016 Past Medical History Discussed below Family Medical History Family Medical Hx Non contributory Constitutional: see HPI, malaise, weakness EENTM: see HPI, no symptoms reported Respiratory: see HPI, cough, orthopnea, short of breath Cardiovascular: see HPI, edema Gastrointestinal: no symptoms reported, see HPI Genitourinary: no symptoms reported, see HPI Musculoskeletal: see HPI, joint pain Skin: see HPI, change in color, lesions Psychiatric/Neurological: No Symptoms Reported, See HPI Reviewed Test Results Reviewed Test Results Lab Laboratory Tests Test 01/04/18 18:23 01/04/18 20:13 01/05/18 05:52 01/05/18 11:02 Range/Units Vancomycin Level Trough 8.1 L 10.0-20.0 UG/ML Glucometer 171 H 143 H 70-110 MG/DL White Blood Count 6.3 4.3-11.0 10^3/uL Red Blood Count 4.17 L 4.35-5.85 10^6/uL Hemoglobin 12.3 L 13.3-17.7 G/DL Hematocrit 37 L 40-54 % Mean Corpuscular Volume 89 80-99 FL Mean Corpuscular Hemoglobin 29 25-34 PG Mean Corpuscular Hemoglobin Concent 33 32-36 G/DL Red Cell Distribution Width 14.8 H 10.0-14.5 % Platelet Count 123 L 130-400 10^3/uL Mean Platelet Volume 8.8 7.4-10.4 FL Neutrophils (%) (Auto) 82 H 42-75 % Lymphocytes (%) (Auto) 12 12-44 % Monocytes (%) (Auto) 6 0-12 % Eosinophils (%) (Auto) 0 0-10 % Basophils (%) (Auto) 0 0-10 % Neutrophils # (Auto) 5.2 1.8-7.8 X 10^3 Lymphocytes # (Auto) 0.8 L 1.0-4.0 X 10^3 Monocytes # (Auto) 0.4 0.0-1.0 X 10^3 Eosinophils # (Auto) 0.0 0.0-0.3 10^3/uL Basophils # (Auto) 0.0 0.0-0.1 10^3/uL Sodium Level 138 135-145 MMOL/L Potassium Level 4.1 3.6-5.0 MMOL/L Chloride Level 108 H 98-107 MMOL/L Carbon Dioxide Level 22 21-32 MMOL/L Anion Gap 8 5-14 MMOL/L Blood Urea Nitrogen 13 7-18 MG/DL Creatinine 1.16 0.60-1.30 MG/DL Estimat Glomerular Filtration Rate > 60 BUN/Creatinine Ratio 11 Glucose Level 116 H 70-105 MG/DL Calcium Level 8.3 L 8.5-10.1 MG/DL Total Bilirubin 0.6 0.1-1.0 MG/DL Aspartate Amino Transf (AST/SGOT) 68 H 5-34 U/L Alanine Aminotransferase (ALT/SGPT) 49 0-55 U/L Alkaline Phosphatase 50 40-136 U/L Total Protein 5.7 L 6.4-8.2 GM/DL Albumin 3.1 L 3.2-4.5 GM/DL Physical Exam Vital Signs Vital Signs - First Documented 01/05/18 11:12 O2 Flow Rate 4.00 Capillary Refill : Less Than 3 Seconds General Appearance: WD/WN, Moderate Distress Eyes: Bilateral Eye Normal Inspection, Bilateral Eye PERRL, Bilateral Eye EOMI HEENT: PERRL/EOMI, TMs Normal, Normal ENT Inspection, Pharynx Normal Neck: Full Range of Motion, Normal Inspection, Non Tender, Supple Respiratory: Chest Non Tender, No Accessory Muscle Use, No Respiratory Distress , Crackles Cardiovascular: Regular Rate, Rhythm, No Gallop, No JVD, No Murmur, Normal Peripheral Pulses Gastrointestinal: Normal Bowel Sounds, No Organomegaly, No Pulsatile Mass, Non Tender, Soft Back: Normal Inspection, No CVA Tenderness, No Vertebral Tenderness Extremity: Normal Capillary Refill, Normal Range of Motion, Non Tender, No Pedal Edema, Pedal Edema, Swelling, Other (Cellulitis on the left leg) Neurologic/Psychiatric: Alert, Oriented x3, No Motor/Sensory Deficits, Normal Mood/Affect Skin: Normal Color, Warm/Dry Lymphatic: No Adenopathy A/P-Cardiology Admission Diagnosis Sepsis Cellulitis Acute respiratory failure Coronary artery disease Assessment/Plan Sepsis and hypotension, cellulitis. Receiving antibiotics and managed by Dr. Moreno Acute respiratory failure, flash pulmonary edema, patient was receiving aggressive IV fluid hydration with the sepsis protocol. Responded to IV Lasix and Solu-Medrol. Last echocardiogram was done in August 2016, I will repeat 2 -D echo. CAD - Cardiac cath of 09-18-[address] Cr, in which an 80% mid vessel bifurcation stenosis in the LAD to which balloon angioplasty was undertaken, with reduction of stenosis to approximately 50%. The rest of the arteries have moderate disease, including 50% stenoses in the proximal RCA, continue to monitor DM II followed by his PCP Bilateral leg swelling, cellulitis on the left leg, receiving antibiotics. Hyperlipidemia, difficult control despite combination therapy with atorvastatin and fenofibric acid Small ASD is reported on an echo of 08/14/14. WEI of 09-13-2014 is suggestive of a small PFO with a small amount of left to right shunt. LVEF 50%. Trivial to mild TR Cardiac cath of 09-18-2014 showed no evidence of intracardiac shunt. LVEF 60%. 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
[2018-01-05] MEDS: CLINDAMYCIN 600 MG/50 ML IVPB 50 ML IV SCH ×2 (15:39→21:59)
--- NOTE | 2018-01-05 18:50 | Progress Note (SOAP) ---
Subjective Date Seen by Provider: Jan 05, 2018 Time Seen by Provider: 12:35 Subjective/Events-last exam Fwup LLE cellulitis with SIRS, Heat Exhaustion with Dehydration and Renal insufficiency, Hypertension, DMII, GERD. Had shortness of air this morning with hypoxia. Given IV lasix and was placed on BIPAP by RT. Doing better now on BIPAP and since has started to diurese. Focused Exam Lactate Level 01/03/18 13:10: Lactic Acid Level 1.75 Objective Exam Vital Signs Date Time Temp Pulse Resp B/P (MAP) Pulse Ox O2 Delivery O2 Flow Rate FiO2 01/05/18 18:30 72 20 99 36.00 01/05/18 18:00 75 8 172/91 (118) 100 NIV Bilevel 36.00 01/05/18 17:00 70 19 163/84 (110) 96 NIV Bilevel 36.00 01/05/18 16:00 NIV Bilevel 36 01/05/18 16:00 96.8 01/05/18 16:00 82 15 159/85 (109) 94 NIV Bilevel 36.00 01/05/18 15:00 81 11 174/105 (128) 97 NIV Bilevel 36.00 01/05/18 14:55 82 22 97 36.00 01/05/18 14:00 87 17 163/94 (117) 96 NIV Bilevel 36.00 01/05/18 13:45 NIV Bilevel 36 01/05/18 13:45 99.7 87 24 163/94 (117) 97 NIV Bilevel 36.00 01/05/18 12:20 98 29 96 36.00 01/05/18 12:00 102.7 109 24 176/78 (110) 92 Room Air 01/05/18 11:12 92 Nasal Cannula 4.00 01/05/18 09:20 88 Room Air 01/05/18 08:00 99.5 95 20 183/77 (112) 90 Room Air 01/05/18 08:00 Room Air 01/05/18 06:51 98 Room Air 01/05/18 04:00 97.7 01/05/18 01:30 99.5 01/04/18 23:40 101.9 109 18 163/74 (103) 95 Room Air 01/04/18 23:05 102.4 01/04/18 20:15 Room Air 01/04/18 19:18 99.4 94 16 145/70 (95) 92 Room Air 01/04/18 18:55 92 Room Air I & O 01/05/18 07:00 Intake Total 3977.5 ml Output Total 300 ml Balance 3677.5 ml Capillary Refill : Less Than 3 Seconds General Appearance: No Apparent Distress Neck: Supple Respiratory: Decreased Breath Sounds Gastrointestinal: normal bowel sounds, non tender, soft Extremity: Inflammation (left lower leg from ankle to just below knee), Pedal Edema Neurologic/Psychiatric: Alert Skin: Erythema (LLE but decreased warmth) Results Lab Laboratory Tests 01/04/18 20:13: Glucometer 171H 01/05/18 05:52: White Blood Count 6.3, Red Blood Count 4.17L, Hemoglobin 12.3L, Hematocrit 37L, Mean Corpuscular Volume 89, Mean Corpuscular Hemoglobin 29, Mean Corpuscular Hemoglobin Concent 33, Red Cell Distribution Width 14.8H, Platelet Count 123L, Mean Platelet Volume 8.8, Neutrophils (%) (Auto) 82H, Lymphocytes (%) (Auto) 12 , Monocytes (%) (Auto) 6, Eosinophils (%) (Auto) 0, Basophils (%) (Auto) 0, Neutrophils # (Auto) 5.2, Lymphocytes # (Auto) 0.8L, Monocytes # (Auto) 0.4, Eosinophils # (Auto) 0.0, Basophils # (Auto) 0.0, Sodium Level 138, Potassium Level 4.1, Chloride Level 108H, Carbon Dioxide Level 22, Anion Gap 8, Blood Urea Nitrogen 13, Creatinine 1.16, Estimat Glomerular Filtration Rate > 60, BUN/ Creatinine Ratio 11, Glucose Level 116H, Calcium Level 8.3L, Total Bilirubin 0.6 , Aspartate Amino Transf (AST/SGOT) 68H, Alanine Aminotransferase (ALT/SGPT) 49 , Alkaline Phosphatase 50, Total Protein 5.7L, Albumin 3.1L 01/05/18 11:02: Glucometer 143H 01/05/18 15:10: B-Type Natriuretic Peptide 539.7H 01/05/18 16:07: Glucometer 169H Microbiology 01/03/18 Blood Culture - Preliminary, Resulted No growth Assessment/Plan Assessment/Plan Assess & Plan/Chief Complaint 1. Acute Respiratory Distress due to Acute Pulmonary Edema--transfer to ICU on BIPAP and continue IV lasix for diuresis 2. LLE Cellulitis with SIRS--add clindamycin due to ongoing temperature spike and doxycycline to cover for tick etiology 3. Acute Renal Insufficiency--improved, IV Heplocked, Cr back to normal 4. Hypertension--started back on home meds 5. DMII--on SSI 6. GERD--on protonix Clinical Quality Measures Admission Status Admission Dx 1. Acute Left Lower Extremity with SIRS--admit and cover with IV Rocephin and IV Vancomycin 2. Heat Exhaustion with Acute Dehydration and Acute on Chronic Renal Insufficiency--Hydrate and monitor creatinine and urine output 3. Hypertension--resume metoprolol 4. GERD with History of Larios's Esophagitis--resume protonix 5. Diabetes mellitus--start accuchecks with SSI and restart metformin DVT/VTE Risk/Contraindication: Risk Factor Score Per Nursin RFS Level Per Nursing on Admit: 4+=Very High Stroke: Date of last known well: Jan 03, 2018 Time of last known well: 08:10 Symptoms onset unknown: GARCIA Gant DO Jan 05, 2018 6:50 pm
[2018-01-05] MEDS: NS IV 1000 ML 1,000 ML IV SCH (19:13)
[2018-01-05] MEDS ORDERED: DOXYCYCLINE 100 MG INJ (VIBRAMYCIN) ONE (21:05)
[2018-01-05] MEDS ORDERED: NS (IVPB) 100 ML ONE (21:06)
[2018-01-05] MEDS: DOXYCYCLINE INJECTION 100 MG in NS (IVPB) 100 ML IV SCH (21:10)
[2018-01-05] MEDS: FLUoxetine HCL 20 MG (PROzac) CAP PO SCH (21:21)
[2018-01-05] MEDS: traZODone 50 MG (DESYREL) TAB PO SCH (21:21)
[2018-01-05] MEDS: FOLIC ACID 1 MG TAB PO SCH (21:22)
[2018-01-06] VITALS (17 sets, daily range): BP systolic 125–164; BP diastolic 65–96
[2018-01-06] MEDS: RT-ALBUTEROL/IPRATROPIUM 3 ML (DUONEB) VIAL INH SCH ×6 (02:30→22:37)
[2018-01-06] MEDS: CLINDAMYCIN 600 MG/50 ML IVPB 50 ML IV SCH ×3 (05:49→23:20)
[2018-01-06] MEDS ORDERED: MAGNESIUM 1 GM/100 ML IVPB 100 ML IV SCH (06:00)
[2018-01-06] MEDS ORDERED: KCL 20 MEQ TAB (K-DUR) PO SCH (06:00)
[2018-01-06] MEDS ORDERED: TROUGH ORDER-PHARMACY XX NR (06:00)
[2018-01-06] MEDS ORDERED: POTASSIUM CL 10MEQ/50ML IVPB 50 ML IV SCH (06:00)
[2018-01-06] MEDS: metFORMIN XR 500 MG (GLUCOPHAGE XR) TAB PO SCH ×2 (06:01→16:54)
[2018-01-06] MEDS: KCL 8 MEQ (MICRO K) TABLET PO SCH (06:01)
[2018-01-06] MEDS: PANTOPRAZOLE 40 MG (PROTONIX) TAB PO SCH (06:01)
[2018-01-06 06:04] LABS: BASOPHILS % (AUTO) 0 % (0-10); EOSINOPHILS % (AUTO) 0 % (0-10); HEMATOCRIT 38 % (40-54); LYMPHOCYTES # (AUTO) 0.4 X 10^3 (1.0-4.0); LYMPHOCYTES % (AUTO) 6 % (12-44); MEAN CORPUSCULAR HEMOGLOBIN 30 PG (25-34); MEAN CORPUSCULAR HGB CONC 35 G/DL (32-36); MEAN CORPUSCULAR VOLUME 88 FL (80-99); MEAN PLATELET VOLUME 9.4 FL (7.4-10.4); MONOCYTES # (AUTO) 0.5 X 10^3 (0.0-1.0); MONOCYTES % (AUTO) 6 % (0-12); NEUTROPHILS # (AUTO) 6.9 X 10^3 (1.8-7.8); NEUTROPHILS % (AUTO) 89 % (42-75); PLATELET COUNT 150 10^3/uL (130-400); RED CELL DISTRIBUTION WIDTH 14.6 % (10.0-14.5); WHITE BLOOD COUNT 7.8 10^3/uL (4.3-11.0)
[2018-01-06 06:29] LABS: BUN/CREATININE RATIO 17; CARBON DIOXIDE 22 MMOL/L (21-32); CHLORIDE 104 MMOL/L (98-107); CREATININE SERUM 0.94 MG/DL (0.60-1.30); POTASSIUM 3.7 MMOL/L (3.6-5.0); SODIUM 137 MMOL/L (135-145)
[2018-01-06 06:30] LABS: ALANINE AMINOTRANSFERASE 43 U/L (0-55); ALBUMIN 3.3 GM/DL (3.2-4.5); ALKALINE PHOSPHATASE 50 U/L (40-136); BILIRUBIN,TOTAL 0.4 MG/DL (0.1-1.0); GFR ESTIMATED > 60; GLUCOSE 193 MG/DL (70-105); MAGNESIUM 1.7 MG/DL (1.8-2.4); PHOSPHORUS 1.9 MG/DL (2.3-4.7); TOTAL PROTEIN 6.2 GM/DL (6.4-8.2)
[2018-01-06 06:40] LABS: VANCOMYCIN,TROUGH 9.1 UG/ML (10.0-20.0)
[2018-01-06] MEDS: inSUlin ASPART (NovoLOG) 1 UNIT/0.01 ML (CHARGE PER UNIT) SC SCH ×4 (06:41→20:25)
[2018-01-06] MEDS: VANCOMYCIN 1250 MG/NS 250 ML IVPB IV SCH ×2 (06:46)
[2018-01-06] MEDS ORDERED: VANCOMYCIN 500 MG/D5W 100 ML IV ONE ×2 (07:30)
--- NOTE | 2018-01-06 08:24 | Cardiology Progress Note ---
Subjective Date Seen by Provider: Jan 06, 2018 Time Seen by Provider: 08:20 Subjective/Events-last exam Patient is laying down in bed, feeling better, denied any chest pain, breathing is better today. Review of Systems General: No Chills, No Night Sweats, No Fatigue, No Malaise, No Appetite, No Other HEENT: No Head Aches, No Visual Changes, No Eye Pain, No Ear Pain, No Dysphasia , No Sinus Congestion, No Post Nasal Drip, No Sore Throat, No Other Pulmonary: No Dyspnea, No Cough, No Pleuritic Chest Pain, No Other Cardiovascular: No: Chest Pain, Palpitations, Orthopnea, Paroxysmal Noc. Dyspnea, Edema, Lt Headedness, Other Focused Exam Lactate Level 01/03/18 13:10: Lactic Acid Level 1.75 Objective-Cardiology Exam Last Set of Vital Signs Vital Signs 01/05/18 01/06/18 01/06/18 19:30 07:00 08:00 Temp 98.1 Pulse 90 Resp 25 B/P (MAP) 158/84 (108) Pulse Ox 98 O2 Delivery Nasal Cannula O2 Flow Rate 1.00 FiO2 35 Capillary Refill : Less Than 3 Seconds I&O Intake and Output 01/05/18 23:59 Intake Total 1585.0 ml Output Total 3100 ml Balance -1515.0 ml Intake Oral 810 ml IV Total 775.0 ml Output Urine Total 3100 ml # Bowel Movements 2 General: Alert, Oriented X3, Cooperative HEENT: Atraumatic, PERRLA Neck: Supple, No JVD, No Thyromegaly Lungs: Clear to Auscultation, Normal Air Movement Heart: Regular Rate, Normal S1, Normal S2, No Murmurs Abdomen: Normal Bowel Sounds, Soft, No Tenderness, No Hepatosplenomegaly, No Masses Extremities: No Clubbing, No Cyanosis, Normal Pulses, No Tenderness/Swelling, Other (Erythema and swelling on the left lower extremity) Skin: No Rashes, No Breakdown, No Significant Lesion Neuro: Normal Gait, Normal Speech, Strength at 5/5 X4 Ext, Normal Tone, Sensation Intact Psych/Mental Status: Mental Status NL, Mood NL Results Lab Laboratory Tests 01/06/18 05:50 A/P-Cardiology Admission Diagnosis Sepsis Cellulitis Acute respiratory failure Coronary artery disease Assessment/Plan Sepsis and hypotension, cellulitis, improving, on antibiotics and managed by Dr. Moreno. Acute respiratory failure, flash pulmonary edema, better at this time. Echocardiogram showed normal LV size and function with ejection fraction 55 percent, diastolic dysfunction is suggested by Doppler, PA pressure of 30 mmHg. Continue to monitor CAD - Cardiac cath of 09-18-[address] Cr, in which an 80% mid vessel bifurcation stenosis in the LAD to which balloon angioplasty was undertaken, with reduction of stenosis to approximately 50%. The rest of the arteries have moderate disease, including 50% stenoses in the proximal RCA, continue to monitor DM II followed by his PCP Bilateral leg swelling, cellulitis on the left leg, receiving antibiotics. Hyperlipidemia, difficult control despite combination therapy with atorvastatin and fenofibric acid Cardiac cath of 09-18-2014 showed no evidence of intracardiac shunt. LVEF 60%. 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
[2018-01-06] MEDS: meTOprolol TARTRATE 50 MG (LOPRESSOR) TAB PO SCH ×2 (08:27→20:48)
[2018-01-06] MEDS: CYANOCOBALAMIN 1,000 MCG (VITAMIN B-12) TABLET PO SCH (08:27)
[2018-01-06] MEDS: ASPIRIN E.C. 81 MG (ECOTRIN) TAB PO SCH (08:27)
[2018-01-06] MEDS: ARIPIPRAZOLE 2 MG (ABILIFY) TAB PO SCH (08:28)
[2018-01-06] MEDS: FUROSEMIDE 40 MG/4 ML INJ (LASIX) IVP SCH (08:28)
--- NOTE | 2018-01-06 08:54 | Diagnostic Imaging Report ---
INDICATION: History of cellulitis, sepsis. TECHNIQUE: Single view chest 3:18 AM. CORRELATION STUDY: 01/05/2018 FINDINGS: Heart size and mediastinum are stable. The severity of vascular congestion appears diminished and less severe. Lung swan are with chronic type changes. IMPRESSION: 1. Findings of congestive failure do appear overall slightly improved. Dictated by: Dictated on workstation # [id number]
[2018-01-06] MEDS: DOXYCYCLINE INJECTION 100 MG in NS (IVPB) 100 ML IV SCH ×2 (09:55→20:46)
[2018-01-06] MEDS: MAGNESIUM 1 GM/100 ML IVPB 100 ML IV SCH ×2 (11:19→11:20)
--- NOTE | 2018-01-06 12:22 | Progress Note (SOAP) ---
Subjective Date Seen by Provider: Jan 06, 2018 Time Seen by Provider: 12:19 Subjective/Events-last exam Fwup LLE cellulitis with SIRS, Heat Exhaustion with Dehydration and Renal insufficiency, Hypertension, DMII, GERD, acute pulmonary edema. Down to 1 liter nasal cannula. Feeling much better. Focused Exam Lactate Level 01/03/18 13:10: Lactic Acid Level 1.75 Objective Exam Vital Signs Date Time Temp Pulse Resp B/P (MAP) Pulse Ox O2 Delivery O2 Flow Rate FiO2 01/06/18 11:17 96 Nasal Cannula 1.00 01/06/18 10:00 83 27 96 Nasal Cannula 1.00 01/06/18 09:00 86 37 163/91 (115) 94 Nasal Cannula 1.00 01/06/18 08:00 90 25 158/84 (108) 98 Nasal Cannula 1.00 01/06/18 08:00 Nasal Cannula 1.00 01/06/18 07:30 90 01/06/18 07:00 98.1 94 26 158/78 (104) 97 Nasal Cannula 1.00 01/06/18 06:45 Nasal Cannula 1.00 01/06/18 06:42 96 Nasal Cannula 2.00 01/06/18 06:00 79 27 164/90 (114) 98 Nasal Cannula 2.00 01/06/18 05:00 68 26 149/73 (98) 97 Nasal Cannula 2.00 01/06/18 04:00 79 17 139/83 (101) 96 Nasal Cannula 2.00 01/06/18 03:30 96 Nasal Cannula 2.00 01/06/18 03:30 97.7 Nasal Cannula 2.00 01/06/18 03:00 77 17 129/65 (86) 95 Nasal Cannula 2.00 01/06/18 02:30 96 Nasal Cannula 2.00 01/06/18 02:00 66 20 129/70 (89) 96 Nasal Cannula 2.00 01/06/18 01:00 65 23 137/78 (97) 97 Nasal Cannula 2.00 01/06/18 01:00 64 01/06/18 00:00 97 Nasal Cannula 2.00 01/06/18 00:00 98.3 66 19 125/72 (89) 97 Nasal Cannula 2.00 01/05/18 23:00 76 24 140/77 (98) 94 Nasal Cannula 2.00 01/05/18 22:07 95 Nasal Cannula 2.00 01/05/18 22:00 71 24 174/92 (119) 97 Nasal Cannula 2.00 01/05/18 21:29 Nasal Cannula 2.00 01/05/18 21:00 70 18 166/88 (114) 96 NIV Bilevel 30.00 01/05/18 20:32 NIV Bilevel 30.00 01/05/18 20:30 71 19 99 32.00 01/05/18 20:00 73 17 164/85 (111) 98 NIV Bilevel 35.00 01/05/18 19:30 97 NIV Bilevel 35 01/05/18 19:00 98.4 81 18 164/81 (108) 97 NIV Bilevel 35.00 01/05/18 19:00 79 01/05/18 18:30 72 20 99 36.00 01/05/18 18:00 75 8 172/91 (118) 100 NIV Bilevel 36.00 01/05/18 17:00 70 19 163/84 (110) 96 NIV Bilevel 36.00 01/05/18 16:00 NIV Bilevel 36 01/05/18 16:00 96.8 01/05/18 16:00 82 15 159/85 (109) 94 NIV Bilevel 36.00 01/05/18 15:00 81 11 174/105 (128) 97 NIV Bilevel 36.00 01/05/18 14:55 82 22 97 36.00 01/05/18 14:00 87 17 163/94 (117) 96 NIV Bilevel 36.00 01/05/18 13:45 NIV Bilevel 36 01/05/18 13:45 99.7 87 24 163/94 (117) 97 NIV Bilevel 36.00 01/05/18 12:20 98 29 96 36.00 I & O 01/06/18 07:00 Intake Total 1522.5 ml Output Total 3195 ml Balance -1672.5 ml Capillary Refill : Less Than 3 Seconds General Appearance: No Apparent Distress HEENT: Pharyngeal Erythema (injected) Neck: Supple Respiratory: Lungs Clear, Decreased Breath Sounds Cardiovascular: Regular Rate, Rhythm, Systolic Murmur Gastrointestinal: normal bowel sounds, non tender, soft Extremity: Inflammation (left leg), Pedal Edema (left lef) Neurologic/Psychiatric: Alert, Oriented x3 Skin: Erythema (left lower leg) Results Lab Laboratory Tests 6/13/18 15:10: B-Type Natriuretic Peptide 539.7H 01/05/18 16:07: Glucometer 169H 01/05/18 21:27: Glucometer 194H 01/06/18 05:50: B-Type Natriuretic Peptide 385.1H, White Blood Count 7.8, Red Blood Count 4.30L , Hemoglobin 13.0L, Hematocrit 38L, Mean Corpuscular Volume 88, Mean Corpuscular Hemoglobin 30, Mean Corpuscular Hemoglobin Concent 35, Red Cell Distribution Width 14.6H, Platelet Count 150, Mean Platelet Volume 9.4, Neutrophils (%) (Auto) 89H, Lymphocytes (%) (Auto) 6L, Monocytes (%) (Auto) 6, Eosinophils (%) (Auto) 0, Basophils (%) (Auto) 0, Neutrophils # (Auto) 6.9, Lymphocytes # (Auto) 0.4L, Monocytes # (Auto) 0.5, Eosinophils # (Auto) 0.0, Basophils # (Auto) 0.0, Sodium Level 137, Potassium Level 3.7, Chloride Level 104, Carbon Dioxide Level 22, Anion Gap 11, Blood Urea Nitrogen 16, Creatinine 0.94, Estimat Glomerular Filtration Rate > 60, BUN/Creatinine Ratio 17, Glucose Level 193H, Calcium Level 9.0, Phosphorus Level 1.9L, Magnesium Level 1.7L, Total Bilirubin 0.4, Aspartate Amino Transf (AST/SGOT) 31, Alanine Aminotransferase (ALT/SGPT) 43, Alkaline Phosphatase 50, Troponin I < 0.30, Total Protein 6.2L, Albumin 3.3, Vancomycin Level Trough 9.1L Microbiology 01/03/18 Blood Culture - Preliminary, Resulted No growth Assessment/Plan Assessment/Plan Assess & Plan/Chief Complaint 1. Acute Respiratory Distress due to Acute Pulmonary Edema--improved, continue lasix and oxygen via NC 2. LLE Cellulitis with SIRS--continue current broad spectrum abx until blood culture preliminary from yesterday back 3. Acute Renal Insufficiency--improved, IV Heplocked, Cr back to normal 4. Hypertension--increase metoprolol dose 5. DMII--on SSI 6. GERD--on protonix Clinical Quality Measures Admission Status Admission Dx 1. Acute Left Lower Extremity with SIRS--admit and cover with IV Rocephin and IV Vancomycin 2. Heat Exhaustion with Acute Dehydration and Acute on Chronic Renal Insufficiency--Hydrate and monitor creatinine and urine output 3. Hypertension--resume metoprolol 4. GERD with History of Larios's Esophagitis--resume protonix 5. Diabetes mellitus--start accuchecks with SSI and restart metformin DVT/VTE Risk/Contraindication: Risk Factor Score Per Nursin RFS Level Per Nursing on Admit: 4+=Very High Stroke: Date of last known well: Jan 03, 2018 Time of last known well: 08:10 Symptoms onset unknown: GARCIA Gant DO Jan 06, 2018 12:22
[2018-01-06] MEDS ORDERED: meTOprolol TARTRATE 25 MG (LOPRESSOR) TABLET PO NR (12:30)
[2018-01-06] MEDS: ENOXAPARIN 40 MG/0.4 ML (LOVENOX) SYR SC SCH (13:23)
[2018-01-06] MEDS: LACTOBACILLUS Acidoph/Bulgar (LACTINEX/FLORANEX) TAB PO SCH (16:54)
[2018-01-06] MEDS ORDERED: VANCOMYCIN 1000 MG/VIAL ONE (20:39)
[2018-01-06] MEDS ORDERED: VANCOMYCIN 750 MG/VIAL IV ONE (20:39)
[2018-01-06] MEDS ORDERED: NS IV 500 ML 0 ML ONE (20:40)
[2018-01-06] MEDS: traZODone 50 MG (DESYREL) TAB PO SCH (20:47)
[2018-01-06] MEDS: FOLIC ACID 1 MG TAB PO SCH (20:47)
[2018-01-06] MEDS: FLUoxetine HCL 20 MG (PROzac) CAP PO SCH (20:49)
[2018-01-06] MEDS: VANCOMYCIN 1,750 MG/NS 500 ML IVPB IV SCH ×2 (20:56)
[2018-01-07] VITALS: BP 135/65
[2018-01-07] MEDS: RT-ALBUTEROL/IPRATROPIUM 3 ML (DUONEB) VIAL INH SCH ×6 (02:43→23:06)
[2018-01-07 05:00] VITALS: BP 160/89
[2018-01-07] MEDS: inSUlin ASPART (NovoLOG) 1 UNIT/0.01 ML (CHARGE PER UNIT) SC SCH ×4 (05:50→20:24)
[2018-01-07] MEDS: KCL 8 MEQ (MICRO K) TABLET PO SCH (05:56)
[2018-01-07] MEDS: LACTOBACILLUS Acidoph/Bulgar (LACTINEX/FLORANEX) TAB PO SCH ×3 (05:56→16:19)
[2018-01-07] MEDS: CLINDAMYCIN 600 MG/50 ML IVPB 50 ML IV SCH ×2 (05:56→13:14)
[2018-01-07] MEDS: PANTOPRAZOLE 40 MG (PROTONIX) TAB PO SCH (05:56)
[2018-01-07] MEDS: metFORMIN XR 500 MG (GLUCOPHAGE XR) TAB PO SCH ×2 (05:57→16:19)
[2018-01-07] MEDS ORDERED: TROUGH ORDER-PHARMACY XX ONE (07:00)
[2018-01-07 08:00] VITALS: BP 138/97
[2018-01-07] MEDS: DOXYCYCLINE INJECTION 100 MG in NS (IVPB) 100 ML IV SCH ×2 (08:01→20:23)
[2018-01-07] MEDS: CYANOCOBALAMIN 1,000 MCG (VITAMIN B-12) TABLET PO SCH (08:04)
[2018-01-07] MEDS: FUROSEMIDE 40 MG/4 ML INJ (LASIX) IVP SCH (08:04)
[2018-01-07] MEDS: ARIPIPRAZOLE 2 MG (ABILIFY) TAB PO SCH (08:05)
[2018-01-07] MEDS: ASPIRIN E.C. 81 MG (ECOTRIN) TAB PO SCH (08:05)
[2018-01-07] MEDS: meTOprolol TARTRATE 50 MG (LOPRESSOR) TAB PO SCH ×2 (08:05→20:24)
[2018-01-07] MEDS: VANCOMYCIN 1,750 MG/NS 500 ML IVPB IV SCH ×2 (09:02)
[2018-01-07] MEDS: ENOXAPARIN 40 MG/0.4 ML (LOVENOX) SYR SC SCH (12:43)
[2018-01-07] MEDS ORDERED: TETANUS,DIPTH,PERTUSS P/F (BOOSTRIX) 0.5 ML VIAL IM ONE (13:15)
--- NOTE | 2018-01-07 13:16 | Progress Note (SOAP) ---
Subjective Date Seen by Provider: Jan 07, 2018 Time Seen by Provider: 13:10 Subjective/Events-last exam Fwup LLE cellulitis with SIRS, Heat Exhaustion with Dehydration and Renal insufficiency, Hypertension, DMII, GERD, acute pulmonary edema. Off oxygen. Sitting up in chair. Feeling much better. Left leg getting few blisters on back. No fever for 48hrs. Objective Exam Vital Signs Date Time Temp Pulse Resp B/P (MAP) Pulse Ox O2 Delivery O2 Flow Rate FiO2 01/07/18 10:36 94 Room Air 01/07/18 08:00 98 Room Air 01/07/18 08:00 98.0 118 20 138/97 (111) 97 Room Air 01/07/18 06:37 95 Room Air 01/07/18 05:00 96.3 113 17 160/89 (112) 94 Nasal Cannula 0.50 01/07/18 02:44 94 Nasal Cannula 0.50 01/07/18 00:00 97.5 119 16 135/65 (88) 95 Nasal Cannula 0.50 01/06/18 22:37 93 Nasal Cannula 0.50 01/06/18 20:20 98.8 130 24 148/96 (113) 93 Nasal Cannula 1.00 01/06/18 20:00 Nasal Cannula 1.00 01/06/18 19:46 94 Nasal Cannula 0.50 01/06/18 16:10 98.1 87 24 144/67 (92) 98 Nasal Cannula 1.00 01/06/18 15:09 97 Nasal Cannula 1.00 01/06/18 15:00 Nasal Cannula 1.00 01/06/18 14:39 97.4 86 22 156/77 (103) 98 Nasal Cannula 2.00 I & O 01/07/18 07:00 Intake Total 2487.5 ml Output Total 2200 ml Balance 287.5 ml Capillary Refill : Less Than 3 Seconds General Appearance: No Apparent Distress Neck: Supple Respiratory: Lungs Clear Cardiovascular: Regular Rate, Rhythm Gastrointestinal: normal bowel sounds, non tender, soft Extremity: Non Tender, No Calf Tenderness, Inflammation (left leg with erythema but decreased warmth) Neurologic/Psychiatric: Alert, Oriented x3 Skin: Erythema (LLE) Results Lab Laboratory Tests 01/06/18 13:28: Glucometer 166H 01/06/18 16:12: Glucometer 153H 6/14/18 20:22: Glucometer 170H 01/07/18 05:02: Glucometer 122H 01/07/18 07:15: Vancomycin Level Trough 16.0 01/07/18 11:07: Glucometer 145H Microbiology 01/05/18 Blood Culture - Preliminary, Resulted No growth Assessment/Plan Assessment/Plan Assess & Plan/Chief Complaint 1. Acute Respiratory Distress due to Acute Pulmonary Edema--improved, continue lasix 2. LLE Cellulitis with SIRS--DC vancomycin and rocephin, continue clindamycin and doxycycline 3. Acute Renal Insufficiency--improved, IV Heplocked, Cr back to normal 4. Hypertension--improved with higher dose of metoprolol 5. DMII--on SSI 6. GERD--on protonix Clinical Quality Measures Admission Status Admission Dx 1. Acute Left Lower Extremity with SIRS--admit and cover with IV Rocephin and IV Vancomycin 2. Heat Exhaustion with Acute Dehydration and Acute on Chronic Renal Insufficiency--Hydrate and monitor creatinine and urine output 3. Hypertension--resume metoprolol 4. GERD with History of Larios's Esophagitis--resume protonix 5. Diabetes mellitus--start accuchecks with SSI and restart metformin DVT/VTE Risk/Contraindication: Risk Factor Score Per Nursin RFS Level Per Nursing on Admit: 4+=Very High Stroke: Date of last known well: Jan 03, 2018 Time of last known well: 08:10 Symptoms onset unknown: GARCIA Gant DO Jan 07, 2018 13:16
--- NOTE | 2018-01-07 13:33 | Cardiology Progress Note ---
Subjective Date Seen by Provider: Jan 07, 2018 Time Seen by Provider: 13:30 Subjective/Events-last exam Patient is in a chair, no chest pain, breathing is better, no new complaint Review of Systems General: No Chills, No Night Sweats, No Fatigue, No Malaise, No Appetite, No Other HEENT: No Head Aches, No Visual Changes, No Eye Pain, No Ear Pain, No Dysphasia , No Sinus Congestion, No Post Nasal Drip, No Sore Throat, No Other Pulmonary: No Dyspnea, No Cough, No Pleuritic Chest Pain, No Other Cardiovascular: No: Chest Pain, Palpitations, Orthopnea, Paroxysmal Noc. Dyspnea, Edema, Lt Headedness, Other Objective-Cardiology Exam Last Set of Vital Signs Vital Signs 01/05/18 01/07/18 01/07/18 01/07/18 19:30 05:00 08:00 10:36 Temp 98.0 Pulse 118 Resp 20 B/P (MAP) 138/97 (111) Pulse Ox 94 O2 Delivery Room Air O2 Flow Rate 0.50 FiO2 35 Capillary Refill : Less Than 3 Seconds I&O Intake and Output 01/07/18 00:00 Intake Total 2487.5 ml Output Total 2195 ml Balance 292.5 ml Intake Oral 1775 ml IV Total 712.5 ml Output Urine Total 2195 ml General: Alert, Oriented X3, Cooperative HEENT: Atraumatic, PERRLA Neck: Supple, No JVD, No Thyromegaly Lungs: Clear to Auscultation, Normal Air Movement Heart: Regular Rate, Normal S1, Normal S2, No Murmurs Abdomen: Normal Bowel Sounds, Soft, No Tenderness, No Hepatosplenomegaly, No Masses Extremities: No Clubbing, No Cyanosis, Normal Pulses, No Tenderness/Swelling, Other (Erythema and swelling on the left lower extremity) Skin: No Rashes, No Breakdown, No Significant Lesion Neuro: Normal Gait, Normal Speech, Strength at 5/5 X4 Ext, Normal Tone, Sensation Intact Psych/Mental Status: Mental Status NL, Mood NL Results Lab Laboratory Tests Test 01/06/18 16:12 01/06/18 20:22 01/07/18 05:02 01/07/18 07:15 Range/Units Glucometer 153 H 170 H 122 H 70-110 MG/DL Vancomycin Level Trough 16.0 10.0-20.0 UG/ML Test 01/07/18 11:07 Range/Units Glucometer 145 H 70-110 MG/DL A/P-Cardiology Admission Diagnosis Sepsis Cellulitis Acute respiratory failure Coronary artery disease Assessment/Plan Sepsis and hypotension, better at this time, feeling better, managed by Dr. Moreno. Acute respiratory failure, flash pulmonary edema, better at this time. Echocardiogram showed normal LV size and function with ejection fraction 55 percent, diastolic dysfunction is suggested by Doppler, PA pressure of 30 mmHg. Continue to monitor CAD - Cardiac cath of 09-18-[address] Cr, in which an 80% mid vessel bifurcation stenosis in the LAD to which balloon angioplasty was undertaken, with reduction of stenosis to approximately 50%. The rest of the arteries have moderate disease, including 50% stenoses in the proximal RCA, continue to monitor DM II followed by his PCP Bilateral leg swelling, cellulitis on the left leg, receiving antibiotics. Hyperlipidemia, difficult control despite combination therapy with atorvastatin and fenofibric acid Cardiac cath of 09-18-2014 showed no evidence of intracardiac shunt. LVEF 60%. 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
[2018-01-07 16:00] VITALS: BP 143/82
[2018-01-07] MEDS ORDERED: PIPERACILLIN/TAZOBACTAM 3.375 GM in D5W 100 ML IVPB 100 ML IV SCH (17:30)
[2018-01-07] MEDS ORDERED: PIPERACILLIN/TAZO3.375 GM/D5W 100 ML IV NR ×2 (17:45)
--- NOTE | 2018-01-07 18:42 | Wound Care Assessment ---
Wound Care Assessment Date Seen by Provider: Jan 07, 2018 Time Seen by Provider: 16:20 Chief Complaint Erythema, pain, swelling of L calf HPI The patient is a 62 year old previously healthy male with the sudden onset four days ago of rapidly progressive erythema, pain and swelling of L calf. The patient relates having trimmed some bayberry bushes the day before and receiving multiple puncture wounds. The swelling and erythema have only improved marginally in hospital on numerous broad spectrum antibiotics. He has diabetes which has been well controlled by report. The findings appear to this examiner as most likely an erysipelas, possibly related to a streptococcal infection. Use of a penicillin antibiotic was discussed with the attending physician. Will follow, especially L posterior medial calf area, where a knobby dermatitis is developing. Smoking Status: Never a Smoker Recreational Drug Use: No Alcohol Use: Past History Exam Vital Signs Date Time Temp Pulse Resp B/P (MAP) Pulse Ox O2 Delivery O2 Flow Rate FiO2 01/07/18 18:21 94 Room Air 01/07/18 16:00 97.9 90 16 143/82 (102) 01/07/18 05:00 0.50 01/05/18 19:30 35 Capillary Refill : Less Than 3 Seconds Results Laboratory Tests 01/06/18 20:22: Glucometer 170H 01/07/18 05:02: Glucometer 122H 01/07/18 07:15: Vancomycin Level Trough 16.0 01/07/18 11:07: Glucometer 145H 01/07/18 15:46: Glucometer 147H Microbiology 01/05/18 Blood Culture - Preliminary, Resulted No growth JELLY OCHOA MD Jan 07, 2018 18:42
[2018-01-07] MEDS: FLUoxetine HCL 20 MG (PROzac) CAP PO SCH (20:22)
[2018-01-07] MEDS: traZODone 50 MG (DESYREL) TAB PO SCH (20:23)
[2018-01-07] MEDS: FOLIC ACID 1 MG TAB PO SCH (20:23)
[2018-01-07] MEDS: PIPERACILLIN/TAZO 3.375 GM/D5W 100 ML IV SCH ×2 (23:38)
[2018-01-08 00:21] VITALS: BP 177/86
[2018-01-08] MEDS: RT-ALBUTEROL/IPRATROPIUM 3 ML (DUONEB) VIAL INH SCH ×3 (01:33→10:43)
[2018-01-08 04:50] LABS: BASOPHILS % (AUTO) 0 % (0-10); EOSINOPHILS # (AUTO) 0.1 10^3/uL (0.0-0.3); EOSINOPHILS % (AUTO) 1 % (0-10); HEMATOCRIT 36 % (40-54); HEMOGLOBIN 12.3 G/DL (13.3-17.7); LYMPHOCYTES # (AUTO) 1.2 X 10^3 (1.0-4.0); LYMPHOCYTES % (AUTO) 18 % (12-44); MEAN CORPUSCULAR HEMOGLOBIN 30 PG (25-34); MEAN CORPUSCULAR HGB CONC 34 G/DL (32-36); MEAN CORPUSCULAR VOLUME 88 FL (80-99); MEAN PLATELET VOLUME 9.3 FL (7.4-10.4); MONOCYTES # (AUTO) 0.7 X 10^3 (0.0-1.0); MONOCYTES % (AUTO) 11 % (0-12); NEUTROPHILS # (AUTO) 4.6 X 10^3 (1.8-7.8); NEUTROPHILS % (AUTO) 69 % (42-75); PLATELET COUNT 201 10^3/uL (130-400); RED BLOOD COUNT 4.11 10^6/uL (4.35-5.85); RED CELL DISTRIBUTION WIDTH 14.9 % (10.0-14.5); WHITE BLOOD COUNT 6.6 10^3/uL (4.3-11.0)
[2018-01-08 05:09] LABS: ALANINE AMINOTRANSFERASE 54 U/L (0-55); ALBUMIN 3.2 GM/DL (3.2-4.5); ALKALINE PHOSPHATASE 51 U/L (40-136); BILIRUBIN,TOTAL 0.7 MG/DL (0.1-1.0); BUN/CREATININE RATIO 18; CALCIUM 9.1 MG/DL (8.5-10.1); CARBON DIOXIDE 21 MMOL/L (21-32); CHLORIDE 107 MMOL/L (98-107); CREATININE SERUM 1.07 MG/DL (0.60-1.30); GFR ESTIMATED > 60; GLUCOSE 113 MG/DL (70-105); POTASSIUM 3.9 MMOL/L (3.6-5.0); SODIUM 140 MMOL/L (135-145); TOTAL PROTEIN 5.8 GM/DL (6.4-8.2)
[2018-01-08] MEDS: LACTOBACILLUS Acidoph/Bulgar (LACTINEX/FLORANEX) TAB PO SCH ×3 (06:32→16:35)
[2018-01-08] MEDS: PANTOPRAZOLE 40 MG (PROTONIX) TAB PO SCH (06:32)
[2018-01-08] MEDS: KCL 8 MEQ (MICRO K) TABLET PO SCH (06:32)
[2018-01-08] MEDS: inSUlin ASPART (NovoLOG) 1 UNIT/0.01 ML (CHARGE PER UNIT) SC SCH ×4 (06:33→20:34)
[2018-01-08] MEDS: metFORMIN XR 500 MG (GLUCOPHAGE XR) TAB PO SCH ×2 (06:33→16:35)
[2018-01-08 08:00] VITALS: BP 138/71
[2018-01-08] MEDS: meTOprolol TARTRATE 50 MG (LOPRESSOR) TAB PO SCH ×2 (08:29→20:34)
[2018-01-08] MEDS: ASPIRIN E.C. 81 MG (ECOTRIN) TAB PO SCH (08:29)
[2018-01-08] MEDS: CYANOCOBALAMIN 1,000 MCG (VITAMIN B-12) TABLET PO SCH (08:29)
[2018-01-08] MEDS: ARIPIPRAZOLE 2 MG (ABILIFY) TAB PO SCH (08:30)
[2018-01-08] MEDS: FUROSEMIDE 40 MG/4 ML INJ (LASIX) IVP SCH (09:04)
[2018-01-08] MEDS: DOXYCYCLINE INJECTION 100 MG in NS (IVPB) 100 ML IV SCH (09:05)
[2018-01-08] MEDS: PIPERACILLIN/TAZO 3.375 GM/D5W 100 ML IV SCH ×4 (10:04→16:34)
[2018-01-08] MEDS: VANCOMYCIN INJECTION 1,750 MG in NS IV 500 ML 500 ML IV SCH ×2 (10:07→20:36)
--- NOTE | 2018-01-08 10:56 | Cardiology Progress Note ---
Subjective Date Seen by Provider: Jan 08, 2018 Time Seen by Provider: 10:55 Subjective/Events-last exam Patient is in bed, feeling better, breathing better, no new complaint Review of Systems General: No Chills, No Night Sweats, No Fatigue, No Malaise, No Appetite, No Other HEENT: No Head Aches, No Visual Changes, No Eye Pain, No Ear Pain, No Dysphasia , No Sinus Congestion, No Post Nasal Drip, No Sore Throat, No Other Pulmonary: No Dyspnea, No Cough, No Pleuritic Chest Pain, No Other Cardiovascular: Edema; No: Chest Pain, Palpitations, Orthopnea, Paroxysmal Noc. Dyspnea, Lt Headedness, Other Objective-Cardiology Exam Last Set of Vital Signs Vital Signs 01/05/18 01/07/18 01/08/18 19:30 05:00 08:00 Temp 97.3 Pulse 90 Resp 20 B/P (MAP) 138/71 (93) Pulse Ox 96 O2 Delivery Room Air O2 Flow Rate 0.50 FiO2 35 Capillary Refill : Less Than 3 Seconds I&O Intake and Output 01/08/18 00:00 Intake Total 2657.5 ml Output Total 2950 ml Balance -292.5 ml Intake Oral 2040 ml IV Total 617.5 ml Output Urine Total 2950 ml # Bowel Movements 1 General: Alert, Oriented X3, Cooperative HEENT: Atraumatic, PERRLA Neck: Supple, No JVD, No Thyromegaly Lungs: Clear to Auscultation, Normal Air Movement Heart: Regular Rate, Normal S1, Normal S2, No Murmurs Abdomen: Normal Bowel Sounds, Soft, No Tenderness, No Hepatosplenomegaly, No Masses Extremities: No Clubbing, No Cyanosis, Normal Pulses, No Tenderness/Swelling, Other (Erythema and swelling on the left lower extremity) Skin: No Rashes, No Breakdown, No Significant Lesion Neuro: Normal Gait, Normal Speech, Strength at 5/5 X4 Ext, Normal Tone, Sensation Intact Psych/Mental Status: Mental Status NL, Mood NL Results Lab Laboratory Tests 01/08/18 04:28 A/P-Cardiology Admission Diagnosis Sepsis Cellulitis Acute respiratory failure Coronary artery disease Assessment/Plan Sepsis and hypotension, better at this time, feeling better, managed by Dr. Moreno. Acute respiratory failure, flash pulmonary edema, better at this time. Echocardiogram showed normal LV size and function with ejection fraction 55 percent, diastolic dysfunction is suggested by Doppler, PA pressure of 30 mmHg. Continue to monitor CAD - Cardiac cath of 09-18-[address] Cr, in which an 80% mid vessel bifurcation stenosis in the LAD to which balloon angioplasty was undertaken, with reduction of stenosis to approximately 50%. The rest of the arteries have moderate disease, including 50% stenoses in the proximal RCA, continue to monitor DM II followed by his PCP Bilateral leg swelling, cellulitis on the left leg, receiving antibiotics. Hyperlipidemia, difficult control despite combination therapy with atorvastatin and fenofibric acid Cardiac cath of 09-18-2014 showed no evidence of intracardiac shunt. LVEF 60%. 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
--- NOTE | 2018-01-08 11:45 | Progress Note-Hospitalist ---
Subjective HPI/CC On Admission Date Seen by Provider: Jan 08, 2018 Time Seen by Provider: 09:45 Mr. Alas reports compared to yesterday there is a little more pain in the left leg and he thinks it is slightly more swollen. He's had no night sweats chills or feverand has had no confusion since his admission. He denies any groin pain with resolution of cough and shortness of breath at rest. Subjective/Events-last exam see above Objective Exam Vital Signs Vital Signs Date Time Temp Pulse Resp B/P (MAP) Pulse Ox O2 Delivery O2 Flow Rate FiO2 01/08/18 08:00 97.3 90 20 138/71 (93) 96 Room Air 01/07/18 05:00 0.50 01/05/18 19:30 35 Capillary Refill : Less Than 3 Seconds General Appearance: No Apparent Distress, WD/WN, Obese Respiratory: Chest Non Tender, Lungs Clear, Normal Breath Sounds, No Accessory Muscle Use, No Respiratory Distress Cardiovascular: Regular Rate, Rhythm, No Edema, No Gallop, No JVD, No Murmur, Normal Peripheral Pulses Gastrointestinal: No Organomegaly, Non Tender, Soft Back: Other (the left lower extremity is swollen with erythema worse anteriorly from the ankle to the tibia ankle range of motion is normal. There are some subtle erythema on the inside of the left thigh but no induration or tendernessthere is no inguinal adenopathy) Neurologic/Psychiatric: Alert, Oriented x3 Results/Procedures Lab Laboratory Tests 01/08/18 04:28 Patient resulted labs reviewed. Assessment/Plan Assessment and Plan Assess & Plan/Chief Complaint 1. Cellulitis of the left lower extremity with little more reported swelling today Vancomycin had been recently stopped with initiation of Zosyn and doxycycline. As there is a possibility of a thorn stick we'll continue Zosyn but will DC doxycycline and resume vancomycin. 2. Sepsis and reported ARDS likely due to number 1 resolved. 3. Type II diabetes mellitus under good control. Clinical Quality Measures DVT/VTE Risk/Contraindication: Risk Factor Score Per Nursin RFS Level Per Nursing on Admit: 4+=Very High Stroke: Date of last known well: Jan 03, 2018 Time of last known well: 08:10 Symptoms onset unknown: No YESSI STEVENS MD Jan 08, 2018 11:45
[2018-01-08] MEDS: ENOXAPARIN 40 MG/0.4 ML (LOVENOX) SYR SC SCH (11:51)
[2018-01-08 16:00] VITALS: BP 168/70
--- NOTE | 2018-01-08 18:17 | Wound Care Assessment ---
Wound Care Assessment Date Seen by Provider: Jan 08, 2018 Time Seen by Provider: 17:50 Chief Complaint Erythema, pain, swelling of L calf HPI 62 year old male with improvement of erythema, pain and swelling of L calf with elevation and IV antibiotics. The L posterior medial calf area appears to be resolving. Past Medical History: Admits Diabetes Type II Smoking Status: Never a Smoker Recreational Drug Use: No Alcohol Use: Past History Review of Systems Musculoskeletal: leg pain (decreased) Exam Vital Signs Date Time Temp Pulse Resp B/P (MAP) Pulse Ox O2 Delivery O2 Flow Rate FiO2 01/08/18 16:00 96.8 74 22 168/70 (102) 96 Room Air 01/07/18 05:00 0.50 01/05/18 19:30 35 Capillary Refill : Less Than 3 Seconds General Appearance: no apparent distress Extremities: swelling (markedly reduced.) Skin: other (resolving erythema.) Results Laboratory Tests 01/07/18 20:23: Glucometer 114H 01/08/18 04:28: White Blood Count 6.6, Red Blood Count 4.11L, Hemoglobin 12.3L, Hematocrit 36L, Mean Corpuscular Volume 88, Mean Corpuscular Hemoglobin 30, Mean Corpuscular Hemoglobin Concent 34, Red Cell Distribution Width 14.9H, Platelet Count 201, Mean Platelet Volume 9.3, Neutrophils (%) (Auto) 69, Lymphocytes (%) (Auto) 18, Monocytes (%) (Auto) 11, Eosinophils (%) (Auto) 1, Basophils (%) (Auto) 0, Neutrophils # (Auto) 4.6, Lymphocytes # (Auto) 1.2, Monocytes # (Auto) 0.7, Eosinophils # (Auto) 0.1, Basophils # (Auto) 0.0, Sodium Level 140, Potassium Level 3.9, Chloride Level 107, Carbon Dioxide Level 21, Anion Gap 12, Blood Urea Nitrogen 19H, Creatinine 1.07, Estimat Glomerular Filtration Rate > 60, BUN /Creatinine Ratio 18, Glucose Level 113H, Calcium Level 9.1, Total Bilirubin 0.7 , Aspartate Amino Transf (AST/SGOT) 27, Alanine Aminotransferase (ALT/SGPT) 54, Alkaline Phosphatase 51, Total Protein 5.8L, Albumin 3.2 01/08/18 07:06: Glucometer 126H 01/08/18 10:40: Glucometer 104 01/08/18 15:29: Glucometer 140H Microbiology 01/05/18 Blood Culture - Preliminary, Resulted No growth Assessment/Plan/Dx 1. Cellulitis and dermatitis of L calf, improving with current regimen. 2. Diabetes mellitus with neuropathy. Plan> continue elevation, IV antibiotics, and observation. JELLY OCHOA MD Jan 08, 2018 18:17
[2018-01-08] MEDS: traZODone 50 MG (DESYREL) TAB PO SCH (20:33)
[2018-01-08] MEDS: FOLIC ACID 1 MG TAB PO SCH (20:33)
[2018-01-08] MEDS: FLUoxetine HCL 20 MG (PROzac) CAP PO SCH (20:34)
[2018-01-09] VITALS: BP 177/86
[2018-01-09] MEDS: PIPERACILLIN/TAZO 3.375 GM/D5W 100 ML IV SCH ×6 (00:06→16:32)
[2018-01-09] MEDS: inSUlin ASPART (NovoLOG) 1 UNIT/0.01 ML (CHARGE PER UNIT) SC SCH ×4 (05:36→20:55)
[2018-01-09] MEDS: PANTOPRAZOLE 40 MG (PROTONIX) TAB PO SCH (05:59)
[2018-01-09] MEDS: KCL 8 MEQ (MICRO K) TABLET PO SCH (05:59)
[2018-01-09] MEDS: metFORMIN XR 500 MG (GLUCOPHAGE XR) TAB PO SCH ×2 (05:59→16:47)
[2018-01-09] MEDS: LACTOBACILLUS Acidoph/Bulgar (LACTINEX/FLORANEX) TAB PO SCH ×3 (05:59→16:31)
[2018-01-09 08:00] VITALS: BP 176/82
[2018-01-09] MEDS: FUROSEMIDE 40 MG/4 ML INJ (LASIX) IVP SCH (08:41)
[2018-01-09] MEDS: ASPIRIN E.C. 81 MG (ECOTRIN) TAB PO SCH (08:41)
[2018-01-09] MEDS: meTOprolol TARTRATE 50 MG (LOPRESSOR) TAB PO SCH ×2 (08:41→20:30)
[2018-01-09] MEDS: ARIPIPRAZOLE 2 MG (ABILIFY) TAB PO SCH (08:42)
[2018-01-09] MEDS: VANCOMYCIN INJECTION 1,750 MG in NS IV 500 ML 500 ML IV SCH ×2 (08:42→20:29)
[2018-01-09] MEDS: CYANOCOBALAMIN 1,000 MCG (VITAMIN B-12) TABLET PO SCH (08:47)
--- NOTE | 2018-01-09 10:41 | Cardiology Progress Note ---
Subjective Date Seen by Provider: Jan 09, 2018 Time Seen by Provider: 10:40 Subjective/Events-last exam Patient is sitting in bed, comfortable, denied any chest pain or shortness of breath. No palpitation. Blood pressure was noted to be elevated. Review of Systems General: No Chills, No Night Sweats, No Fatigue, No Malaise, No Appetite, No Other HEENT: No Head Aches, No Visual Changes, No Eye Pain, No Ear Pain, No Dysphasia , No Sinus Congestion, No Post Nasal Drip, No Sore Throat, No Other Pulmonary: No Dyspnea, No Cough, No Pleuritic Chest Pain, No Other Cardiovascular: No: Chest Pain, Palpitations, Orthopnea, Paroxysmal Noc. Dyspnea, Edema, Lt Headedness, Other Objective-Cardiology Exam Last Set of Vital Signs Vital Signs 01/05/18 01/07/18 19:30 05:00 O2 Flow Rate 0.50 FiO2 35 Capillary Refill : Less Than 3 Seconds I&O Intake and Output 01/09/18 00:00 Intake Total 1470 ml Output Total 1900 ml Balance -430 ml Intake Oral 1170 ml IV Total 300 ml Output Urine Total 1900 ml # Voids 4 # Bowel Movements 2 General: Alert, Oriented X3, Cooperative HEENT: Atraumatic, PERRLA Neck: Supple, No JVD, No Thyromegaly Lungs: Clear to Auscultation, Normal Air Movement Heart: Regular Rate, Normal S1, Normal S2, No Murmurs Abdomen: Normal Bowel Sounds, Soft, No Tenderness, No Hepatosplenomegaly, No Masses Extremities: No Clubbing, No Cyanosis, Normal Pulses, No Tenderness/Swelling, Other (Erythema and swelling on the left lower extremity) Skin: No Rashes, No Breakdown, No Significant Lesion Neuro: Normal Gait, Normal Speech, Strength at 5/5 X4 Ext, Normal Tone, Sensation Intact Psych/Mental Status: Mental Status NL, Mood NL Results Lab Laboratory Tests Test 01/08/18 15:29 01/08/18 20:08 01/09/18 05:30 Range/Units Glucometer 140 H 114 H 101 70-110 MG/DL A/P-Cardiology Admission Diagnosis Sepsis Cellulitis Acute respiratory failure Coronary artery disease Assessment/Plan Sepsis and hypotension, improved, feeling better, receiving antibiotic, managed by primary care physician Hypertension, status post hypotensive episode. I will start low-dose ANA inhibitor and monitor his tolerance and response Status post acute respiratory failure, flash pulmonary edema, better at this time. Echocardiogram showed normal LV size and function with ejection fraction 55 percent, diastolic dysfunction is suggested by Doppler, PA pressure of 30 mmHg. Continue to monitor CAD - Cardiac cath of 09-18-[address] Cr, in which an 80% mid vessel bifurcation stenosis in the LAD to which balloon angioplasty was undertaken, with reduction of stenosis to approximately 50%. The rest of the arteries have moderate disease, including 50% stenoses in the proximal RCA, continue to monitor DM II followed by his PCP Bilateral leg swelling, cellulitis on the left leg, receiving antibiotics. Hyperlipidemia, difficult control despite combination therapy with atorvastatin and fenofibric acid Cardiac cath of 09-18-2014 showed no evidence of intracardiac shunt. LVEF 60%. 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
[2018-01-09] MEDS ORDERED: lisINopril 5 MG (PRINIVIL) TABLET PO NR (10:53)
--- NOTE | 2018-01-09 12:00 | Progress Note-Hospitalist ---
Subjective HPI/CC On Admission Date Seen by Provider: Jan 09, 2018 Time Seen by Provider: 09:45 Mr. Alas reports compared to yesterday there is a little more pain in the left leg and he thinks it is slightly more swollen. He's had no night sweats chills or feverand has had no confusion since his admission. He denies any groin pain with resolution of cough and shortness of breath at rest. Subjective/Events-last exam Patient reports less pain and right lower extremity swelling today feeling better. Denies night sweats chills or fever. He also denies any problems with cramping. He reports several loose stools per day without abdominal pain. They are reportedly small no evidence for blood bright red or melena. Staff report that there is not the usual odor that goes along with Clostridium difficile. Objective Exam Vital Signs Vital Signs Date Time Temp Pulse Resp B/P (MAP) Pulse Ox O2 Delivery O2 Flow Rate FiO2 01/09/18 08:00 96.7 67 18 176/82 (113) 97 Room Air 01/07/18 05:00 0.50 01/05/18 19:30 35 Capillary Refill : Less Than 3 Seconds General Appearance: No Apparent Distress Respiratory: Chest Non Tender, Lungs Clear, Normal Breath Sounds, No Accessory Muscle Use, No Respiratory Distress Cardiovascular: Regular Rate, Rhythm, No Edema, No Gallop, No JVD, No Murmur, Normal Peripheral Pulses Gastrointestinal: Normal Bowel Sounds, No Organomegaly, No Pulsatile Mass, Non Tender, Soft Extremity: Other (Erythema more violaceous today with diminished swelling of the left lower extremity no 5 pain or erythema noted. No ulceration noted. Skin dry) Results/Procedures Lab Patient resulted labs reviewed. Assessment/Plan Assessment and Plan Assess & Plan/Chief Complaint 1. Cellulitis of the left lower extremity improved back on vancomycin continue vancomycin and Zosyn for now. 2. Sepsis and reported ARDS likely due to number 1 resolved. 3. Type II diabetes mellitus under good control. 4. Mild hypomagnesemia we'll repeat if worse would likely recommend IV magnesium replacement considering mild diarrhea. Repeat basic metabolic panel and magnesium in the morning. 5. Small volume loose stools continue to monitor if worsening we'll obtain stool for C. difficile no evidence for this as of yet. Clinical Quality Measures DVT/VTE Risk/Contraindication: Risk Factor Score Per Nursin RFS Level Per Nursing on Admit: 4+=Very High Stroke: Date of last known well: Jan 03, 2018 Time of last known well: 08:10 Symptoms onset unknown: YESSI Harris MD Jan 09, 2018 12:00
[2018-01-09] MEDS: ENOXAPARIN 40 MG/0.4 ML (LOVENOX) SYR SC SCH (12:44)
[2018-01-09] MEDS ORDERED: FUROSEMIDE 40 MG (LASIX) TAB PO NR (15:43)
[2018-01-09 15:51] VITALS: BP 164/90
[2018-01-09] MEDS: FOLIC ACID 1 MG TAB PO SCH (20:30)
[2018-01-09] MEDS: traZODone 50 MG (DESYREL) TAB PO SCH (20:30)
[2018-01-09] MEDS: FLUoxetine HCL 20 MG (PROzac) CAP PO SCH (20:30)
[2018-01-09] MEDS: IBUPROFEN 600 MG (MOTRIN) TAB PO PRN (23:47)
[2018-01-10] VITALS: BP 180/82
[2018-01-10] MEDS: PIPERACILLIN/TAZO 3.375 GM/D5W 100 ML IV SCH ×4 (00:12→08:08)
[2018-01-10 05:00] VITALS: BP 177/94
[2018-01-10] MEDS: inSUlin ASPART (NovoLOG) 1 UNIT/0.01 ML (CHARGE PER UNIT) SC SCH ×2 (06:00→11:54)
[2018-01-10] MEDS: PANTOPRAZOLE 40 MG (PROTONIX) TAB PO SCH (06:36)
[2018-01-10] MEDS: LACTOBACILLUS Acidoph/Bulgar (LACTINEX/FLORANEX) TAB PO SCH ×2 (06:36→12:00)
[2018-01-10] MEDS: metFORMIN XR 500 MG (GLUCOPHAGE XR) TAB PO SCH (06:36)
[2018-01-10] MEDS: KCL 8 MEQ (MICRO K) TABLET PO SCH (06:37)
[2018-01-10 08:00] VITALS: BP 162/81
[2018-01-10] MEDS ORDERED: TROUGH ORDER-PHARMACY XX NR (08:00)
[2018-01-10 08:27] LABS: BUN/CREATININE RATIO 12; CALCIUM 9.3 MG/DL (8.5-10.1); CARBON DIOXIDE 23 MMOL/L (21-32); CHLORIDE 107 MMOL/L (98-107); CREATININE SERUM 1.06 MG/DL (0.60-1.30); GFR ESTIMATED > 60; GLUCOSE 141 MG/DL (70-105); POTASSIUM 3.5 MMOL/L (3.6-5.0); SODIUM 140 MMOL/L (135-145)
[2018-01-10 08:34] LABS: VANCOMYCIN,TROUGH 17.1 UG/ML (10.0-20.0)
--- NOTE | 2018-01-10 08:35 | Progress Note-Cardiology ---
Cardiology SOAP Progress Note Subjective: Sitting up in bed. Denies any c/o CP, SOB, palpitations or syncope. Feels swelling in the left leg is better. C/O stiffness in his left knee. Objective: I&O/Vital Signs 01/10/18 01/10/18 01/10/18 01/10/18 00:00 00:50 05:00 08:00 Temp 100.4 98.6 98.0 96.0 Pulse 81 96 71 Resp 18 B/P (MAP) 180/82 (114) 177/94 (121) 162/81 (108) Pulse Ox 94 95 O2 Delivery Room Air Room Air 01/10/18 00:00 Intake Total 1780 ml Balance 1780 ml Weight (Pounds): 254 Weight (Ounces): 6.0 Weight (Calculated Kilograms): 115.284391 Constitutional: AAO x 3 Respiratory: No accessory muscle use, No respiratory distress; chest expansion is symmetric, chest is bilaterally symmetric, lungs clear to auscultation Cardiovascular: regular rate-rhythm; No JVD; S1 and S2 Gastrointestional: No tender; soft, audible bowel sounds Extremities: no lower extremity edema bilateral Neurologic/Psychiatric: grossly intact Skin: No rash, No ulcerations; other (redness to left lower leg, below the knee to ankle) Results/Procedures: Labs Laboratory Tests 01/09/18 10:32: Glucometer 163H 01/09/18 15:18: Glucometer 134H 01/09/18 20:44: Glucometer 120H 01/10/18 05:08: Glucometer 120H 01/10/18 08:01: Sodium Level 140, Potassium Level 3.5L, Chloride Level 107, Carbon Dioxide Level 23, Anion Gap 10, Blood Urea Nitrogen 13, Creatinine 1.06, Estimat Glomerular Filtration Rate > 60, BUN/Creatinine Ratio 12, Glucose Level 141H, Calcium Level 9.3, Magnesium Level 2.0, Vancomycin Level Trough 17.1 Microbiology 01/05/18 Blood Culture - Preliminary, Resulted No growth A/P: Assessment: Sepsis and hypotension, improved, feeling better, receiving antibiotic, managed by primary care physician Hypertension, status post hypotensive episode - not well controlled Status post acute respiratory failure, flash pulmonary edema, better at this time. Echocardiogram showed normal LV size and function with ejection fraction 55% diastolic dysfunction is suggested by Doppler, PA pressure of 30 mmHg. Per echo of 01-06-[address] Granado CAD - Cardiac cath of 09-18-[address] Cr, in which an 80% mid vessel bifurcation stenosis in the LAD to which balloon angioplasty was undertaken, with reduction of stenosis to approximately 50%. The rest of the arteries have moderate disease, including 50% stenoses in the proximal RCA, continue to monitor DM II followed by his PCP Left leg cellulitis - management per medical services Hyperlipidemia, difficult control despite combination therapy with atorvastatin and fenofibric acid Cardiac cath of 09-18-2014 showed no evidence of intracardiac shunt. LVEF 60%. 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 He feels that inflammation of L leg is much improved Lungs: good bilat air entry Cor: reg Ext: no c/c/e A&R * As documented in our note above that I updated (italics) and as noted below * Continue current therapy * Monitor labs * I spoke with him and answered CV-related questions Clinical Quality Measures Stroke: Date of last known well: Jan 03, 2018 Time of last known well: 08:10 Symptoms onset unknown: No TRACIE JOHNSON Jan 10, 2018 08:35 YISSEL CR MD FACP FAC CCDS Jan 10, 2018 09:31
[2018-01-10] MEDS: CYANOCOBALAMIN 1,000 MCG (VITAMIN B-12) TABLET PO SCH (08:56)
[2018-01-10] MEDS: ASPIRIN E.C. 81 MG (ECOTRIN) TAB PO SCH (08:56)
[2018-01-10] MEDS: ARIPIPRAZOLE 2 MG (ABILIFY) TAB PO SCH (08:56)
[2018-01-10] MEDS ORDERED: FUROSEMIDE 40 MG (LASIX) TAB PO SCH (09:00)
[2018-01-10] MEDS ORDERED: lisINopril 5 MG (PRINIVIL) TABLET PO SCH (09:00)
[2018-01-10] MEDS: VANCOMYCIN INJECTION 1,750 MG in NS IV 500 ML 500 ML IV SCH (09:00)
[2018-01-10] MEDS ORDERED: meTOprolol TARTRATE 50 MG (LOPRESSOR) TAB PO SCH (09:00)
[2018-01-10] MEDS: ENOXAPARIN 40 MG/0.4 ML (LOVENOX) SYR SC SCH (12:00)
[2018-01-10] MEDS ORDERED: AMOX-356 PO (12:53)
--- NOTE | 2018-01-10 12:54 | Discharge Inst-Simple/Standard ---
Discharge Inst-Standard Discharge Medications New, Converted or Re-Newed RX: Transmitted to Pharmacy Patient Instructions/Follow Up Plan of Care/Instructions/FU: Fwup on , 01/13/18 Activity as Tolerated: Yes Discharge Diet: Low Sodium Diet, ADA Diet Planned Outpatient Orders/Ref. Pneu Vac Indicated: Yes GARCIA RHODES DO Jan 10, 2018 12:54 pm
[2018-01-10 14:48] VITALS: BP 162/81
== END 2018-01-10 14:50 | disposition home or self-care (01) | DRG 871 ==
LOC: EDUNIT# 12:44 → ER 12:46 → 4TH 16:45 → ICU 01-05 13:40 → 4TH 01-06 13:50
PROVIDERS: ADMIT Family Medicine; ATTEND Family Medicine
DX: A41.9 Sepsis, unspecified organism (principal); J81.0 Acute pulmonary edema; J96.00 Acute respiratory failure, unspecified whether with hypoxia or hypercapnia; L03.116 Cellulitis of left lower limb; Q21.1 Atrial septal defect; A46 Erysipelas; L03.032 Cellulitis of left toe; R06.03 Acute respiratory distress; T67.5XXA Heat exhaustion, unspecified, initial encounter; I12.9 Hypertensive chronic kidney disease with stage 1 through stage 4 chronic kidney disease, or unspecified chronic kidney disease; N18.2 Chronic kidney disease, stage 2 (mild); I25.10 Atherosclerotic heart disease of native coronary artery without angina pectoris; E78.00 Pure hypercholesterolemia, unspecified; K22.70 Barrett's esophagus without dysplasia; J30.2 Other seasonal allergic rhinitis; M19.91 Primary osteoarthritis, unspecified site; F32.9 Major depressive disorder, single episode, unspecified; K21.9 Gastro-esophageal reflux disease without esophagitis; E86.0 Dehydration; E11.40 Type 2 diabetes mellitus with diabetic neuropathy, unspecified; M10.9 Gout, unspecified; N40.0 Benign prostatic hyperplasia without lower urinary tract symptoms; I08.2 Rheumatic disorders of both aortic and tricuspid valves; M47.9 Spondylosis, unspecified; R19.7 Diarrhea, unspecified; E83.42 Hypomagnesemia; X30.XXXA Exposure to excessive natural heat, initial encounter; Z87.891 Personal history of nicotine dependence; Z79.84 Long term (current) use of oral hypoglycemic drugs
CPT/HCPCS: 36415; 70450; 71045; 80048; 80053; 80061; 80202; 81000; 82962; 83605; 83735; 83880; 84100; 84484; 85007; 85025; 85027; 85379; 85610; 85730; 87040; 90715; 93005; 93041; 93306; 94640; 94660; 94664; 94760; 96361; 96365

== ENCOUNTER → 2018-02-11 | Outpatient (CLI) | payer OTHER, MEDICARE ==
[~2018-02-11] MED LIST changes: +ACET-2267 PO; +AMOX-356 PO; +ESOM40CA52 PO; +FENO135C4 PO; +METF500T8 PO; +TRAZ-189 PO; +TRAZ-190 PO; -TRAZ-28 PO
[2018-02-11 07:39] LABS: ALANINE AMINOTRANSFERASE 14 U/L (0-55); ALBUMIN 4.1 GM/DL (3.2-4.5); ALKALINE PHOSPHATASE 56 U/L (40-136); BILIRUBIN,TOTAL 0.4 MG/DL (0.1-1.0); BUN/CREATININE RATIO 13; CALCIUM 9.6 MG/DL (8.5-10.1); CARBON DIOXIDE 23 MMOL/L (21-32); CHLORIDE 107 MMOL/L (98-107); GFR ESTIMATED > 60; GLUCOSE 123 MG/DL (70-105); POTASSIUM 4.5 MMOL/L (3.6-5.0); SODIUM 140 MMOL/L (135-145)
== END ==
LOC: LAB 07:01
PROVIDERS: ATTEND Family Medicine
DX: E10.65 Type 1 diabetes mellitus with hyperglycemia (principal)
CPT/HCPCS: 36415; 80053; 83036

== ENCOUNTER 2018-06-23 09:28 | Inpatient (IN) | payer OTHER, MEDICARE ==
[~2018-06-23] VITALS: Ht 182.9 cm; Wt 117.1 kg
[2018-06-23] VITALS (16 sets, daily range): BP systolic 103–178; BP diastolic 85–135
[~2018-06-23 09:28] MED LIST changes: +METF-397 PO; -METF500T5 PO
[2018-06-23 09:59] LABS: BASOPHILS % (AUTO) 0 % (0-10); EOSINOPHILS # (AUTO) 0.1 10^3/uL (0.0-0.3); EOSINOPHILS % (AUTO) 0 % (0-10); HEMATOCRIT 47 % (40-54); HEMOGLOBIN 15.4 G/DL (13.3-17.7); LYMPHOCYTES # (AUTO) 0.4 X 10^3 (1.0-4.0); LYMPHOCYTES % (AUTO) 2 % (12-44); MEAN CORPUSCULAR HEMOGLOBIN 28 PG (25-34); MEAN CORPUSCULAR HGB CONC 33 G/DL (32-36); MEAN CORPUSCULAR VOLUME 86 FL (80-99); MEAN PLATELET VOLUME 9.1 FL (7.4-10.4); MONOCYTES % (AUTO) 6 % (0-12); NEUTROPHILS # (AUTO) 16.1 X 10^3 (1.8-7.8); NEUTROPHILS % (AUTO) 92 % (42-75); PLATELET COUNT 254 10^3/uL (130-400); RED BLOOD COUNT 5.42 10^6/uL (4.35-5.85); RED CELL DISTRIBUTION WIDTH 14.1 % (10.0-14.5); WHITE BLOOD COUNT 17.6 10^3/uL (4.3-11.0)
[2018-06-23] MEDS ORDERED: RT-ALBUTEROL/IPRATROPIUM 3 ML (DUONEB) VIAL INH ONE (10:00)
[2018-06-23 10:20] LABS: ALBUMIN 4.1 GM/DL (3.2-4.5); BILIRUBIN,TOTAL 0.5 MG/DL (0.1-1.0); CALCIUM 9.6 MG/DL (8.5-10.1); CREATININE SERUM 1.69 MG/DL (0.60-1.30); TOTAL PROTEIN 6.7 GM/DL (6.4-8.2)
--- NOTE | 2018-06-23 10:32 | ED Respiratory ---
General Chief Complaint: Respiratory Problems Stated Complaint: SOB Nursing Triage Note: pt brought in by ems with complaint of sob. pt states he became diaphoretic and sob this am around 615. called and came home to bring pt to er. states they started to come to er but pt started gasping for air returned home and called 911. ems stated pt was 88% on room air, given duoneb, and put on 4L nc. pts temp was 102F. states pt took 1000mg tylenol this am. Source: patient, family Exam Limitations: no limitations History of Present Illness Date Seen by Provider: Jun 23, 2018 Time Seen by Provider: :29 Initial Comments To ER per EMS from home with reports of shortness of breath. This morning around 6:15 AM he developed shortness of breath. He became diaphoretic, called his to come home from work (she is a nurse here). She arrived home and summoned EMS. Initial oxygen saturation 88%, he did have a temperature up to 102 , cough and shortness of breath. EMS gave DuoNeb, applied oxygen and brought him to the emergency room. Timing/Duration: this morning, getting worse Severity: moderate Prior Episodes/Possible Cause: no prior episodes Associated Symptoms: fever/chills, shortness of breath, wheezing Allergies and Home Medications Allergies Coded Allergies: No Known Drug Allergies (Verified , 05/19/08) Uncoded Allergies: [id number] (HAYFEVER) (Allergy, Mild, 12/21/08) Home Medications Acetaminophen 500 Mg Tablet, 1,000 MG PO BID, (Reported) Allopurinol 100 Mg Tablet, 100 MG PO BID, (Reported) Allopurinol 100 Mg Tablet, 100 MG PO BID, (Reported) Aripiprazole 2 Mg Tablet, 2 MG PO DAILY, (Reported) Aspirin 81 Mg Tablet.dr, 81 MG PO DAILY, (Reported) Atorvastatin Calcium 80 Mg Tablet, 80 MG PO HS, (Reported) Cholecalciferol (Vitamin D3) 1,000 Unit Tablet, 1,000 UNIT PO DAILY, (Reported) Cyanocobalamin (Vitamin B-12) 1,000 Mcg Tablet, 1,000 MCG PO DAILY, (Reported) Dexlansoprazole 60 Mg Cap.bp, 60 MG PO BID, (Reported) Esomeprazole Magnesium 40 Mg Capsule.dr, 40 MG PO BID, (Reported) Fenofibric Acid (Choline) 135 Mg Capsule.dr, 135 MG PO HS, (Reported) Fluoxetine HCl 40 Mg Capsule, 40 MG PO HS, (Reported) Folic Acid 0.4 Mg Tablet, 0.4 MG PO HS, (Reported) Furosemide 40 Mg Tablet, 40 MG PO DAILY, (Reported) Metformin HCl 500 Mg Tab.er.24h, 500 MG PO BID WITH MEALS, (Reported) Metoprolol Tartrate 50 Mg Tablet, 50 MG PO BID, (Reported) [place] 3 Polyunsat Fatty Acids 1,000 Mg Cap, 1,000 MG PO BID, (Reported) Potassium Chloride 20 Meq Tab.er.prt, 20 MEQ PO DAILY, (Reported) Solifenacin Succinate 5 Mg Tablet, 5 MG PO DAILY, (Reported) Tramadol HCl 50 Mg Tablet, 50 MG PO DAILY, (Reported) Tramadol HCl 50 Mg Tablet, 100 MG PO HS, (Reported) TAKES 2 (50MG) TABLETS Trazodone HCl 100 Mg Tablet, 50 MG PO HS, (Reported) TAKES 1/2 (100MG) TABLET Ubidecarenone 200 Mg Capsule, 200 MG PO DAILY, (Reported) Patient Home Medication List Home Medication List Reviewed: Yes Review of Systems Review of Systems Constitutional: see HPI, chills, diaphoresis, fever EENTM: see HPI Respiratory: see HPI, cough, short of breath, wheezing Cardiovascular: no symptoms reported Genitourinary: no symptoms reported Musculoskeletal: no symptoms reported Skin: no symptoms reported Psychiatric/Neurological: No Symptoms Reported Hematologic/Lymphatic: No Symptoms Reported Immunological/Allergic: no symptoms reported Past Tbjotjg-Jinqui-Xqknbz Hx Patient Social History Alcohol Use: Past History Number of Drinks Today: AA Alcohol Beverage of Choice: Beer Recreational Drug Use: 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) Smoking Status: Former Smoker Type Used: Smokeless Tobacco Former Smoker, Quit: Jun 03, 1981 2nd Hand Smoke Exposure: No Recent Foreign Travel: No Contact w/Someone Who Travel: No Recent Infectious Disease Expo: No Recent Hopitalizations: No Immunizations Up To Date Tetanus Booster (TDap): More than 5yrs Date of Pneumonia Vaccine: Aug 14, 2008 Date of Influenza Vaccine: Apr 25, 2016 Seasonal Allergies Seasonal Allergies: Yes Past Medical History Surgeries: Yes (CARPEL TUNNEL SARAHI,ANTERIOR COMPARTMENT SYNDROM R LEG, BILAT knee scope, ) Orthopedic, Tonsillectomy Respiratory: No Currently Using CPAP: No Currently Using BIPAP: No Cardiac: Yes (2 STENTS) Chronic Edema/Swelling, Coronary Artery Disease, High Cholesterol, Hypertension Neurological: No Reproductive Disorders: No Sexually Transmitted Disease: No HIV/AIDS: No Genitourinary: Yes Benign Prostatic Hyperpl Gastrointestinal: Yes (UMB HERNIA REPAIR) Gastroesophageal Reflux, Larios's Esophagus Musculoskeletal: Yes Degenerate Disk Disease, Arthritis, Chronic Back Pain, Gout Endocrine: Yes Diabetes, Non-Insulin dep HEENT: No Loss of Vision: Denies Hearing Impairment: Denies Cancer: No Psychosocial: Yes Depression Integumentary: Yes (CELLULITIS LEFT LOWER EXTREMITY) Blood Disorders: No Physical Exam Vital Signs - First Documented 06/23/18 09:32 Temp 100.9 Pulse 102 Resp 22 B/P (MAP) 123/81 (95) Pulse Ox 91 O2 Delivery Nasal Cannula O2 Flow Rate 4.00 Capillary Refill : Less Than 3 Seconds Height: 6'0" Weight: 250lbs. 6.0oz. 113.133727ji; 34.2 BMI Method:Stated General Appearance: WD/WN, no apparent distress, moderate distress (still fairly tachypneic with a rate of about 24, oxygen saturation 90-93% on 4 L.), obese Eyes: Bilateral Eye Normal Inspection, Bilateral Eye PERRL, Bilateral Eye EOMI HEENT: PERRL/EOMI, normal ENT inspection Neck: non-tender, full range of motion Respiratory: no respiratory distress, no accessory muscle use, other (wheezing throughout the left lung) Cardiovascular: regular rate, rhythm, no murmur Gastrointestinal: normal bowel sounds, non tender, soft Neurologic/Psychiatric: alert, normal mood/affect, oriented x 3 Skin: normal color, warm/dry Focused Exam Lactate Level 06/23/18 09:50: Lactic Acid Level 3.08*H Lactic Acid Level Laboratory Tests Test 06/23/18 09:50 Lactic Acid Level 3.08 MMOL/L (0.50-2.00) *H Progress/Results/Core Measures Suspected Sepsis Recent Fever Within 48 Hours: Yes Infection Criteria Present: None New/Unexplained Altered Menta: No Sepsis Screen: No Definite Risk SIRS Temperature:100.9 Pulse: 102 Respiratory Rate: 22 Laboratory Tests 06/23/18 09:50: White Blood Count 17.6H Blood Pressure 123 /81 Mean: 95 06/23/18 09:50: Lactic Acid Level 3.08*H Laboratory Tests 06/23/18 09:50: Creatinine 1.69H, Platelet Count 254, Total Bilirubin 0.5 Results/Orders Lab Results Laboratory Tests Test 06/23/18 09:50 Range/Units White Blood Count 17.6 H 4.3-11.0 10^3/uL Red Blood Count 5.42 4.35-5.85 10^6/uL Hemoglobin 15.4 13.3-17.7 G/DL Hematocrit 47 40-54 % Mean Corpuscular Volume 86 80-99 FL Mean Corpuscular Hemoglobin 28 25-34 PG Mean Corpuscular Hemoglobin Concent 33 32-36 G/DL Red Cell Distribution Width 14.1 10.0-14.5 % Platelet Count 254 130-400 10^3/uL Mean Platelet Volume 9.1 7.4-10.4 FL Neutrophils (%) (Auto) 92 H 42-75 % Lymphocytes (%) (Auto) 2 L 12-44 % Monocytes (%) (Auto) 6 0-12 % Eosinophils (%) (Auto) 0 0-10 % Basophils (%) (Auto) 0 0-10 % Neutrophils # (Auto) 16.1 H 1.8-7.8 X 10^3 Lymphocytes # (Auto) 0.4 L 1.0-4.0 X 10^3 Monocytes # (Auto) 1.0 0.0-1.0 X 10^3 Eosinophils # (Auto) 0.1 0.0-0.3 10^3/uL Basophils # (Auto) 0.0 0.0-0.1 10^3/uL Neutrophils % (Manual) 75 % Lymphocytes % (Manual) 2 % Monocytes % (Manual) 2 % Eosinophils % (Manual) 0 % Basophils % (Manual) 0 % Band Neutrophils 21 % Blood Morphology Comment NORMAL Sodium Level 140 135-145 MMOL/L Potassium Level 4.0 3.6-5.0 MMOL/L Chloride Level 106 98-107 MMOL/L Carbon Dioxide Level 19 L 21-32 MMOL/L Anion Gap 15 H 5-14 MMOL/L Blood Urea Nitrogen 17 7-18 MG/DL Creatinine 1.69 H 0.60-1.30 MG/DL Estimat Glomerular Filtration Rate 41 BUN/Creatinine Ratio 10 Glucose Level 95 70-105 MG/DL Lactic Acid Level 3.08 *H 0.50-2.00 MMOL/L Calcium Level 9.6 8.5-10.1 MG/DL Corrected Calcium 9.5 8.5-10.1 MG/DL Total Bilirubin 0.5 0.1-1.0 MG/DL Aspartate Amino Transf (AST/SGOT) 36 H 5-34 U/L Alanine Aminotransferase (ALT/SGPT) 34 0-55 U/L Alkaline Phosphatase 54 40-136 U/L Troponin I 0.51 *H <0.30 NG/ML Total Protein 6.7 6.4-8.2 GM/DL Albumin 4.1 3.2-4.5 GM/DL Micro Results Microbiology 06/23/18 Influenza Types A,B Antigen (CARLITA) - Final, Complete My Orders Orders - EDSON MENDOSA APRN Blood Culture (06/23/18 10:20) Lactic Acid Analyzer (06/23/18 10:20) Influenza A And B Antigens (06/23/18 10:20) Albuterol Pre-Mix Nebs (Rt) (Proventil (06/23/18 21:00) Svn Small Volume Nebulizer (06/23/18 10:28) Ekg Tracing (06/23/18 10:32) Troponin I (06/23/18 10:32) Albuterol Pre-Mix Nebs (Rt) (Proventil (06/23/18 10:34) Albuterol Pre-Mix Nebs (Rt) (Proventil (06/23/18 21:00) Ceftriaxone For Iv Use (Rocephin For I (06/23/18 10:45) Aspirin Chewable Tablet (Baby Aspirin Ch (06/23/18 11:15) Medications Given in ED Current Medications Medications Dose Ordered Sig/Grace Route Start Time Stop Time Status Last Admin Dose Admin Albuterol Sulfate 2.5 mg STK-MED ONCE .ROUTE 06/23/18 10:34 06/23/18 10:36 DC 06/23/18 10:38 2.5 MG Albuterol/ Ipratropium 3 ml ONCE ONCE INH 06/23/18 10:00 06/23/18 10:01 DC 06/23/18 10:02 3 ML Vital Signs/I&O 06/23/18 06/23/18 06/23/18 09:32 10:03 10:38 Temp 100.9 Pulse 102 Resp 22 B/P (MAP) 123/81 (95) Pulse Ox 91 90 93 O2 Delivery Nasal Cannula Nasal Cannula Nasal Cannula O2 Flow Rate 4.00 4.00 4.00 Capillary Refill : Less Than 3 Seconds Blood Pressure Mean: 95 Diagnostic Imaging Diagonstic Imaging: Xray Plain Films/CT/US/NM/MRI: chest Comments NAME: DWIGHT MAC [facility] REC#: [id number] PT STATUS: REG ER : 1955 PHYSICIAN: RAUL VAUGHN MD ADMIT DATE: 06/23/18/ER Draft Date of Exam:06/23/18 CHEST 1 VIEW, AP/PA ONLY INDICATION: Fever and cough. TIME OF EXAM: 10:16 a.m. Correlation is made with prior study from 01/06/2018. The heart size is stable. Visualized lung swan appear to be fairly clear. There is some increased density to the left base. Some infiltrate at this location cannot be excluded. The pulmonary vascularity is normal. No effusion or pneumothorax is identified. IMPRESSION: Questionable infiltrate or atelectasis in the left base. The study is otherwise unremarkable. Dictated on workstation # [id number] Dict: 06/23/18 1025 Trans: 06/23/18 1035 [facility] [id number] Interpreted by: ESSIE MORRIS MD Electronically signed by: Departure Communication (Admissions) Time/Spoke to Admitting Phy: 11:16 Time/Spoke to Consulting Phy: 11:[address] Cr. Does not wish to add any additional anticoagulation/ antiplatelet agents. He will consult. states that he's been admitted for sepsis twice. He is receiving the 30 middle liter per kilogram fluid bolus twice and has developed pulmonary edema twice. We will limit our fluid bolus to 1 L in the emergency room. Impression Primary Impression: Pneumonia Qualified Codes: J18.9 - Pneumonia, unspecified organism Additional Impression: Respiratory distress Disposition: ADMITTED INPATIENT Condition: Stable Admissions Decision to Admit Reason: Admit from ER (General) Decision to Admit/Date: Jun 23, 2018 Time/Decision to Admit Time: 10:37 Transfer Time Spoke to Accepting Phy: 10:37 Departure-Patient Inst. Referrals: GARCIA RHODES DO (PCP/Family) Primary Care Physician EDSON MENDOSA APRN Jun 23, 2018 10:32
[2018-06-23] MEDS ORDERED: RT-ALBUTEROL SULF 2.5 MG/3 ML PRE-MIX VIAL ONE (10:34)
--- NOTE | 2018-06-23 10:36 | Diagnostic Imaging Report ---
INDICATION: Fever and cough. TIME OF EXAM: 10:16 a.m. Correlation is made with prior study from 01/06/2018. The heart size is stable. Visualized lung swan appear to be fairly clear. There is some increased density to the left base. Some infiltrate at this location cannot be excluded. The pulmonary vascularity is normal. No effusion or pneumothorax is identified. IMPRESSION: Questionable infiltrate or atelectasis in the left base. The study is otherwise unremarkable. Dictated by: Dictated on workstation # [id number]
[2018-06-23 10:40] LABS: NEUTROPHILS % (MANUAL) 75 %
[2018-06-23 10:41] LABS: BAND NEUTROPHILS 21 %; BASOPHILS % (MANUAL) 0 %; EOSINOPHILS % (MANUAL) 0 %; LYMPHOCYTES % (MANUAL) 2 %; MONOCYTES % (MANUAL) 2 %; RBC MORPH NORMAL
[2018-06-23] MEDS ORDERED: cefTRIAXone FOR IV USE 1,000 MG in NS (IVPB) 50 ML IV ONE (10:45)
[2018-06-23] MEDS ORDERED: DEXL60CA PO (10:53)
[2018-06-23] MEDS ORDERED: NF-SOLIF5T PO (10:53)
[2018-06-23] MEDS ORDERED: ALLO100T PO (10:53)
[2018-06-23] MEDS ORDERED: ASPIRIN 81 MG CHEW (CHILDREN'S ASA) PO ONE (11:15)
--- NOTE | 2018-06-23 12:31 | Consultation-Cardiology ---
HPI-Cardiology Cardiology Consultation: Date of Consultation 06/23/18 Date of Admission Attending Physician Pamela Diaz DO Admitting Physician Alia Moreno DO Consulting Physician TRACIE HURTADO ONH-Jxqwjq-Dhbadi Hx Patient Social History Alcohol Use: Past History Recreational Drug Use: 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 Allergies and Home Medications Allergies Coded Allergies: No Known Drug Allergies (Verified , 05/19/08) Uncoded Allergies: [id number] (HAYFEVER) (Allergy, Mild, 12/21/08) Home Medications Acetaminophen 500 Mg Tablet, 1,000 MG PO BID, (Reported) Allopurinol 100 Mg Tablet, 100 MG PO BID, (Reported) Aripiprazole 2 Mg Tablet, 2 MG PO DAILY, (Reported) Aspirin 81 Mg Tablet.dr, 81 MG PO DAILY, (Reported) Atorvastatin Calcium 80 Mg Tablet, 80 MG PO HS, (Reported) Cholecalciferol (Vitamin D3) 1,000 Unit Tablet, 1,000 UNIT PO DAILY, (Reported) Cyanocobalamin (Vitamin B-12) 1,000 Mcg Tablet, 1,000 MCG PO DAILY, (Reported) Dexlansoprazole 60 Mg Cap.dr.bp, 60 MG PO BID, (Reported) Fenofibric Acid (Choline) 135 Mg Capsule.dr, 135 MG PO HS, (Reported) Fluoxetine HCl 40 Mg Capsule, 40 MG PO HS, (Reported) Folic Acid 0.4 Mg Tablet, 0.4 MG PO HS, (Reported) Furosemide 40 Mg Tablet, 40 MG PO DAILY, (Reported) Metformin HCl 500 Mg Tab.er.24h, 500 MG PO BID WITH MEALS, (Reported) Metoprolol Tartrate 50 Mg Tablet, 50 MG PO BID, (Reported) [place] 3 Polyunsat Fatty Acids 1,000 Mg Cap, 1,000 MG PO BID, (Reported) Potassium Chloride 20 Meq Tab.er.prt, 20 MEQ PO DAILY, (Reported) Solifenacin Succinate 5 Mg Tablet, 5 MG PO HS, (Reported) Tramadol HCl 50 Mg Tablet, 50 MG PO DAILY, (Reported) Tramadol HCl 50 Mg Tablet, 100 MG PO HS, (Reported) TAKES 2 (50MG) TABLETS Trazodone HCl 100 Mg Tablet, 50 MG PO HS, (Reported) TAKES 1/2 (100MG) TABLET Ubidecarenone 200 Mg Capsule, 200 MG PO DAILY, (Reported) Physical Exam-Cardiology Physical Exam Vital Signs/I&O 06/23/18 06/23/18 06/23/18 06/23/18 09:32 10:03 10:38 12:41 Temp 100.9 Pulse 102 102 Resp 22 19 B/P (MAP) 123/81 (95) 138/80 (99) Pulse Ox 91 90 93 93 O2 Delivery Nasal Cannula Nasal Cannula Nasal Cannula Vapotherm O2 Flow Rate 4.00 4.00 4.00 06/23/18 06/23/18 06/23/18 06/23/18 13:00 13:15 13:30 13:45 Pulse 100 99 99 101 Resp 8 15 18 15 B/P (MAP) 150/95 (113) 103/90 (94) 162/93 (116) Pulse Ox 96 96 92 99 O2 Delivery Vapotherm Vapotherm Vapotherm Vapotherm O2 Flow Rate 40.00 40.00 40.00 40.00 20.00 20.00 20.00 20.00 06/23/18 06/23/18 06/23/18 06/23/18 14:00 14:30 15:00 15:30 Pulse 99 101 101 104 Resp 22 27 22 32 B/P (MAP) 142/115 (124) 119/97 (104) 125/92 (103) 129/105 (113) Pulse Ox 99 97 100 98 O2 Delivery Vapotherm Vapotherm Vapotherm Vapotherm O2 Flow Rate 40.00 40.00 40.00 40.00 20.00 20.00 20.00 20.00 06/23/18 15:52 Temp 102.4 Capillary Refill : Less Than 3 Seconds Data Review Labs Laboratory Tests 06/23/18 09:50: White Blood Count 17.6H, Red Blood Count 5.42, Hemoglobin 15.4, Hematocrit 47, Mean Corpuscular Volume 86, Mean Corpuscular Hemoglobin 28, Mean Corpuscular Hemoglobin Concent 33, Red Cell Distribution Width 14.1, Platelet Count 254, Mean Platelet Volume 9.1, Neutrophils (%) (Auto) 92H, Lymphocytes (%) (Auto) 2L , Monocytes (%) (Auto) 6, Eosinophils (%) (Auto) 0, Basophils (%) (Auto) 0, Neutrophils # (Auto) 16.1H, Lymphocytes # (Auto) 0.4L, Monocytes # (Auto) 1.0, Eosinophils # (Auto) 0.1, Basophils # (Auto) 0.0, Neutrophils % (Manual) 75, Lymphocytes % (Manual) 2, Monocytes % (Manual) 2, Eosinophils % (Manual) 0, Basophils % (Manual) 0, Band Neutrophils 21, Blood Morphology Comment NORMAL, Sodium Level 140, Potassium Level 4.0, Chloride Level 106, Carbon Dioxide Level 19L, Anion Gap 15H, Blood Urea Nitrogen 17, Creatinine 1.69H, Estimat Glomerular Filtration Rate 41, BUN/Creatinine Ratio 10, Glucose Level 95, Lactic Acid Level 3.08*H, Calcium Level 9.6, Corrected Calcium 9.5, Total Bilirubin 0.5, Aspartate Amino Transf (AST/SGOT) 36H, Alanine Aminotransferase ( ALT/SGPT) 34, Alkaline Phosphatase 54, Troponin I 0.51*H, Total Protein 6.7, Albumin 4.1 06/23/18 10:42: D-Dimer 1.07H 06/23/18 13:11: Lactic Acid Level 1.68, B-Type Natriuretic Peptide 487.1H 06/23/18 13:45: Blood Gas Puncture Site R RAD, Blood Gas Patient Temperature 99.0, Arterial Blood pH 7.43, Arterial Blood Partial Pressure CO2 36, Arterial Blood Partial Pressure O2 81, Arterial Blood HCO3 23, Arterial Blood Total CO2 24.2, Arterial Blood Oxygen Saturation 97, Arterial Blood Base Excess -0.6, Damon Test YES-POS , Blood Gas Ventilator Setting NO, Blood Gas Inspired Oxygen 20L / 40% VAPOTHERM 06/23/18 15:46: Prothrombin Time 14.5, INR Comment 1.1, Activated Partial Thromboplast Time 30, Troponin I 0.92*H, Serum Alcohol < 10 Microbiology 06/23/18 Influenza Types A,B Antigen (CARLITA) - Final, Complete A/P-Cardiology Assessment/Admission Diagnosis CAD - Cardiac cath of 09-18-2014 in which an 80% mid vessel bifurcation stenosis in the LAD to which balloon angioplasty was undertaken, with reduction of stenosis to approximately 50%. The rest of the arteries have moderate disease, including 50% stenoses in the proximal RCA DM II which is being followed by his PCP Bilateral leg swelling Hypertension with LVH on surface ECG Obesity with BMI approx 34 Hyperlipidemia, difficult control despite combination therapy with atorvastatin and fenofibric acid Small ASD is reported on an echo of 08/14/14. WEI of 09-13-2014 is suggestive of a small PFO with a small amount of left to right shunt. LVEF 50%. Trivial to mild TR Cardiac cath of 09-18-2014 showed no evidence of intracardiac shunt. LVEF 60%. 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
[2018-06-23] MEDS ORDERED: NS IV 1000 ML 1,000 ML ONE (12:58)
[2018-06-23] MEDS ORDERED: DOXYCYCLINE INJECTION 100 MG in NS (IVPB) 100 ML IV SCH (13:00)
[2018-06-23] MEDS ORDERED: CATHETER FLUSH 10 ML SYR IV PRN (13:15)
--- NOTE | 2018-06-23 13:27 | Pulmonary Consultation ---
History of Present Illness History of Present Illness Date of Consultation 06/23/18 13:22 Time Seen by Provider: 13:22 Date of Admission History of Present Illness 62yo with hx of CAD, CHF presented to ED via EMS after became very SOB, diaphoretic No syncope. PT has been running a fever and not feeling well. He was diagnosed in ED with LLL pneumonia. Fever of 102 with Sp02 of 88%. = Allergies and Home Medications Allergies Coded Allergies: No Known Drug Allergies (Verified , 05/19/08) Uncoded Allergies: [id number] (HAYFEVER) (Allergy, Mild, 12/21/08) Home Medications Acetaminophen 500 Mg Tablet, 1,000 MG PO BID, (Reported) Allopurinol 100 Mg Tablet, 100 MG PO BID, (Reported) Aripiprazole 2 Mg Tablet, 2 MG PO DAILY, (Reported) Aspirin 81 Mg Tablet.dr, 81 MG PO DAILY, (Reported) Atorvastatin Calcium 80 Mg Tablet, 80 MG PO HS, (Reported) Cholecalciferol (Vitamin D3) 1,000 Unit Tablet, 1,000 UNIT PO DAILY, (Reported) Cyanocobalamin (Vitamin B-12) 1,000 Mcg Tablet, 1,000 MCG PO DAILY, (Reported) Dexlansoprazole 60 Mg Cap.dr.bp, 60 MG PO BID, (Reported) Fenofibric Acid (Choline) 135 Mg Capsule.dr, 135 MG PO HS, (Reported) Fluoxetine HCl 40 Mg Capsule, 40 MG PO HS, (Reported) Folic Acid 0.4 Mg Tablet, 0.4 MG PO HS, (Reported) Furosemide 40 Mg Tablet, 40 MG PO DAILY, (Reported) Metformin HCl 500 Mg Tab.er.24h, 500 MG PO BID WITH MEALS, (Reported) Metoprolol Tartrate 50 Mg Tablet, 50 MG PO BID, (Reported) [place] 3 Polyunsat Fatty Acids 1,000 Mg Cap, 1,000 MG PO BID, (Reported) Potassium Chloride 20 Meq Tab.er.prt, 20 MEQ PO DAILY, (Reported) Solifenacin Succinate 5 Mg Tablet, 5 MG PO HS, (Reported) Tramadol HCl 50 Mg Tablet, 50 MG PO DAILY, (Reported) Tramadol HCl 50 Mg Tablet, 100 MG PO HS, (Reported) TAKES 2 (50MG) TABLETS Trazodone HCl 100 Mg Tablet, 50 MG PO HS, (Reported) TAKES 1/2 (100MG) TABLET Ubidecarenone 200 Mg Capsule, 200 MG PO DAILY, (Reported) Past Bvpmdmm-Iemdhr-Mtsffl Hx Patient Social History Alcohol Use: Past History Number of Drinks Today: AA Alcohol Beverage of Choice: Beer Recreational Drug Use: 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) Smoking Status: Former Smoker Type Used: Smokeless Tobacco Former Smoker, Quit: Jun 03, 1981 2nd Hand Smoke Exposure: No Recent Foreign Travel: No Contact w/Someone Who Travel: No Recent Infectious Disease Expo: No Recent Hopitalizations: No Immunizations Up To Date Tetanus Booster (TDap): More than 5yrs Date of Pneumonia Vaccine: Aug 14, 2008 Date of Influenza Vaccine: Apr 25, 2016 Seasonal Allergies Seasonal Allergies: Yes Past Medical History Surgeries: Yes (CARPEL TUNNEL SARAHI,ANTERIOR COMPARTMENT SYNDROM R LEG, BILAT knee scope, ) Orthopedic, Tonsillectomy Respiratory: No Currently Using CPAP: No Currently Using BIPAP: No Cardiac: Yes (2 STENTS) Chronic Edema/Swelling, Coronary Artery Disease, High Cholesterol, Hypertension Neurological: No Reproductive Disorders: No Sexually Transmitted Disease: No HIV/AIDS: No Genitourinary: Yes Benign Prostatic Hyperpl Gastrointestinal: Yes (UMB HERNIA REPAIR) Gastroesophageal Reflux, Larios's Esophagus Musculoskeletal: Yes Degenerate Disk Disease, Arthritis, Chronic Back Pain, Gout Endocrine: Yes Diabetes, Non-Insulin dep HEENT: No Loss of Vision: Denies Hearing Impairment: Denies Cancer: No Psychosocial: Yes Depression Integumentary: Yes (CELLULITIS LEFT LOWER EXTREMITY) Blood Disorders: No Sepsis Event Evaluation Height, Weight, BMI Height: 6'0" Weight: 250lbs. 6.0oz. 113.402269hs; 34.2 BMI Method:Stated Exam Exam Vital Signs Date Time Temp Pulse Resp B/P (MAP) Pulse Ox O2 Delivery O2 Flow Rate FiO2 06/23/18 10:38 93 Nasal Cannula 4.00 06/23/18 10:03 90 Nasal Cannula 4.00 06/23/18 09:32 100.9 102 22 123/81 (95) 91 Nasal Cannula 4.00 Height & Weight Height: 6'0" Weight: 250lbs. 6.0oz. 113.733486ko; 34.2 BMI Method:Stated Capillary Refill: Less Than 3 Seconds Gastrointestinal: normal bowel sounds, non tender, soft Results Lab Laboratory Tests 06/23/18 09:50 Assessment/Plan Assessment/Plan -Acute respiratory distress with hypoxia and CP r/o PE -Check DDimer, and BNP -Check V/Q scan - GFR is 42 -Stat bilateral dopplers -Stat echocardiogram -start Lovenox Severe Sepsis secondary to LLE cellulitis and possible PNA -Cautious IVF secondary to previous flash pulmonary edema -[place] Abx to Zosyn, and Vanco -Demarco cultures NIKHIL -IVF Elevated troponin -Trend troponins - EKG -Cardiology pending Obesity with probable NATE -Will do ABG and out patient testing once discharged. I called and discussed with Dr. Cr who is going to review echocardiogram today. ILIA VELASQUEZ DO Jun 23, 2018 13:27
[2018-06-23 13:55] LABS: ABG BASE EXCESS -0.6 MMOL/L (-2.5-2.5); ABG OXYGEN SATURATION 97 % (94-100); ABG PCO2 36 MMHG (35-45); ABG PH 7.43 (7.37-7.43); ABG PO2 81 MMHG (79-93); ABG TCO2 24.2 MMOL/L (21.0-31.0); ALLENS TEST YES-POS
[2018-06-23] MEDS ORDERED: NS (IVPB) 100 ML ONE (13:55)
[2018-06-23] MEDS ORDERED: PIPERACILLIN/TAZO 4.5 GM VIAL (ZOSYN) IV ONE (13:55)
[2018-06-23 13:56] LABS: INSPIRED O2 20L / 40% VAPOTHERM; VENTILATOR NO
[2018-06-23] MEDS ORDERED: ENOXAPARIN 100 MG/1 ML (LOVENOX) SYR SC SCH (14:00)
[2018-06-23] MEDS ORDERED: PIPERACILLIN SODIUM/TAZOBACTAM 4.5 GM in NS (IVPB) 100 ML IV NR (14:00)
[2018-06-23] MEDS: NS IV 1000 ML 1,000 ML IV SCH (14:02)
[2018-06-23] MEDS ORDERED: VANCOMYCIN INJECTION 2,250 MG in NS IV 500 ML 500 ML IV NR (14:05)
--- NOTE | 2018-06-23 14:22 | Consultation-Cardiology ---
HPI-Cardiology Cardiology Consultation: Date of Consultation 06/23/18 Time Seen by a Provider: 14:00 Date of Admission Attending Physician Pamela Diaz DO Admitting Physician Alia Moreno DO Consulting Physician YISSEL SHOEMAKER MA, MD, FACP, FACC, FSCAI, CCDS HPI: Chief Complaint: CC: Shortness of breath HPI: 62 yo man with a relatively sudden onset of shortness of breath and coughing and gen malaise. Long bouts of coughing resulted in some chest soreness , according to him. He does not describe any other cp at this time. He denies palp or syncope. Has had redness of the R leg with raised local temperature for several days. Review of Systems-Cardiology Review of Systems Constitutional: malaise; No weight loss, No weight gain Eyes: No vision change Ears/Nose/Throat: No nasal drainage, No recent hearing loss, No ulcerations Respiratory: As described under HPI Cardiovascular: As described under HPI Gastrointestinal: No diarrhea, No nausea, No vomiting Genitourinary: No dysuria, No hematuria, No urine frequency changes Musculoskeletal: other (gen body pains) Skin: other (see HPI for description of R leg symptoms) Psychiatric/Neurological: No seizure, No focal weakness, No syncope Hematologic: No bleeding abnormalities QAR-Mghxmw-Nqoeok Hx Patient Social History Alcohol Use: Past History Recreational Drug Use: 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 Family Medical History Family Medical History: He does not report fam h/o early CAD or SCE Allergies and Home Medications Allergies Coded Allergies: No Known Drug Allergies (Verified , 05/19/08) Uncoded Allergies: [id number] (HAYFEVER) (Allergy, Mild, 12/21/08) Home Medications Acetaminophen 500 Mg Tablet, 1,000 MG PO BID, (Reported) Allopurinol 100 Mg Tablet, 100 MG PO BID, (Reported) Aripiprazole 2 Mg Tablet, 2 MG PO DAILY, (Reported) Aspirin 81 Mg Tablet.dr, 81 MG PO DAILY, (Reported) Atorvastatin Calcium 80 Mg Tablet, 80 MG PO HS, (Reported) Cholecalciferol (Vitamin D3) 1,000 Unit Tablet, 1,000 UNIT PO DAILY, (Reported) Cyanocobalamin (Vitamin B-12) 1,000 Mcg Tablet, 1,000 MCG PO DAILY, (Reported) Dexlansoprazole 60 Mg Cap..bp, 60 MG PO BID, (Reported) Fenofibric Acid (Choline) 135 Mg Capsule.dr, 135 MG PO HS, (Reported) Fluoxetine HCl 40 Mg Capsule, 40 MG PO HS, (Reported) Folic Acid 0.4 Mg Tablet, 0.4 MG PO HS, (Reported) Furosemide 40 Mg Tablet, 40 MG PO DAILY, (Reported) Metformin HCl 500 Mg Tab.er.24h, 500 MG PO BID WITH MEALS, (Reported) Metoprolol Tartrate 50 Mg Tablet, 50 MG PO BID, (Reported) Banquete 3 Polyunsat Fatty Acids 1,000 Mg Cap, 1,000 MG PO BID, (Reported) Potassium Chloride 20 Meq Tab.er.prt, 20 MEQ PO DAILY, (Reported) Solifenacin Succinate 5 Mg Tablet, 5 MG PO HS, (Reported) Tramadol HCl 50 Mg Tablet, 50 MG PO DAILY, (Reported) Tramadol HCl 50 Mg Tablet, 100 MG PO HS, (Reported) TAKES 2 (50MG) TABLETS Trazodone HCl 100 Mg Tablet, 50 MG PO HS, (Reported) TAKES 1/2 (100MG) TABLET Ubidecarenone 200 Mg Capsule, 200 MG PO DAILY, (Reported) Patient Home Medication List Home Medication List Reviewed: Yes Physical Exam-Cardiology Physical Exam Vital Signs/I&O 06/23/18 06/23/18 06/23/18 06/23/18 09:32 10:03 10:38 12:41 Temp 100.9 Pulse 102 102 Resp 22 19 B/P (MAP) 123/81 (95) 138/80 (99) Pulse Ox 91 90 93 93 O2 Delivery Nasal Cannula Nasal Cannula Nasal Cannula Vapotherm O2 Flow Rate 4.00 4.00 4.00 06/23/18 06/23/18 06/23/18 06/23/18 13:00 13:15 13:30 13:45 Pulse 100 99 99 101 Resp 8 15 18 15 B/P (MAP) 150/95 (113) 103/90 (94) 162/93 (116) Pulse Ox 96 96 92 99 O2 Delivery Vapotherm Vapotherm Vapotherm Vapotherm O2 Flow Rate 40.00 40.00 40.00 40.00 20.00 20.00 20.00 20.00 06/23/18 06/23/18 06/23/18 06/23/18 14:00 14:30 15:00 15:30 Pulse 99 101 101 104 Resp 22 27 22 32 B/P (MAP) 142/115 (124) 119/97 (104) 125/92 (103) 129/105 (113) Pulse Ox 99 97 100 98 O2 Delivery Vapotherm Vapotherm Vapotherm Vapotherm O2 Flow Rate 40.00 40.00 40.00 40.00 20.00 20.00 20.00 20.00 06/23/18 15:52 Temp 102.4 Capillary Refill : Less Than 3 Seconds Constitutional: AAO x 3, well-developed, well-nourished HEENT: EOMI, hearing is well preserved; No xanthelasmas are seen Neck: carotid pulses are 2 + bilaterally, with good upstrokes Respiratory: No accessory muscle use; other (good bilat air entry, but diminished at the bases; a few scattered rhonchi and wheezes) Cardiovascular: regular rate-rhythm, S1 and S2, systolic murmur (soft TERRANCE at card base) Gastrointestinal: No tender; soft; No guarding, No rebound; audible bowel sounds Extremities: other (redness and raised temperature over the skin of the R leg) ; No clubbing, No cyanosis Neurologic/Psychiatric: oriented x 3, grossly intact, power is 5/5 both on sides Skin: No ulcerations on exposed areas; other (see under extremity exam) Data Review Labs Laboratory Tests 06/23/18 09:50: White Blood Count 17.6H, Red Blood Count 5.42, Hemoglobin 15.4, Hematocrit 47, Mean Corpuscular Volume 86, Mean Corpuscular Hemoglobin 28, Mean Corpuscular Hemoglobin Concent 33, Red Cell Distribution Width 14.1, Platelet Count 254, Mean Platelet Volume 9.1, Neutrophils (%) (Auto) 92H, Lymphocytes (%) (Auto) 2L , Monocytes (%) (Auto) 6, Eosinophils (%) (Auto) 0, Basophils (%) (Auto) 0, Neutrophils # (Auto) 16.1H, Lymphocytes # (Auto) 0.4L, Monocytes # (Auto) 1.0, Eosinophils # (Auto) 0.1, Basophils # (Auto) 0.0, Neutrophils % (Manual) 75, Lymphocytes % (Manual) 2, Monocytes % (Manual) 2, Eosinophils % (Manual) 0, Basophils % (Manual) 0, Band Neutrophils 21, Blood Morphology Comment NORMAL, Sodium Level 140, Potassium Level 4.0, Chloride Level 106, Carbon Dioxide Level 19L, Anion Gap 15H, Blood Urea Nitrogen 17, Creatinine 1.69H, Estimat Glomerular Filtration Rate 41, BUN/Creatinine Ratio 10, Glucose Level 95, Lactic Acid Level 3.08*H, Calcium Level 9.6, Corrected Calcium 9.5, Total Bilirubin 0.5, Aspartate Amino Transf (AST/SGOT) 36H, Alanine Aminotransferase ( ALT/SGPT) 34, Alkaline Phosphatase 54, Troponin I 0.51*H, Total Protein 6.7, Albumin 4.1 06/23/18 10:42: D-Dimer 1.07H 06/23/18 13:11: Lactic Acid Level 1.68, B-Type Natriuretic Peptide 487.1H 06/23/18 13:45: Blood Gas Puncture Site R RAD, Blood Gas Patient Temperature 99.0, Arterial Blood pH 7.43, Arterial Blood Partial Pressure CO2 36, Arterial Blood Partial Pressure O2 81, Arterial Blood HCO3 23, Arterial Blood Total CO2 24.2, Arterial Blood Oxygen Saturation 97, Arterial Blood Base Excess -0.6, Damon Test YES-POS , Blood Gas Ventilator Setting NO, Blood Gas Inspired Oxygen 20L / 40% VAPOTHERM 06/23/18 15:46: Prothrombin Time 14.5, INR Comment 1.1, Activated Partial Thromboplast Time 30, Troponin I 0.92*H, Serum Alcohol < 10 Microbiology 06/23/18 Influenza Types A,B Antigen (CARLITA) - Final, Complete A/P-Cardiology Assessment/Admission Diagnosis Shortness of breath, etiology undetermined: probably has pneumonia, PE needs to be considered Sepsis, as indicated by lactic acidosis R leg cellulitis Mild troponin elevation, likely due to hypoxia during shortness of breath on CAD - Cardiac cath of 09-18-2014 that showed 80% mid vessel bifurcation stenosis in the LAD to which balloon angioplasty was undertaken, with reduction of stenosis to approximately 50%. The rest of the arteries have moderate disease, including 50% stenoses in the proximal RCA DM II which is being followed by his PCP Bilateral leg swelling Hypertension with LVH on surface ECG Obesity with BMI approx 34 Hyperlipidemia, difficult control despite combination therapy with atorvastatin and fenofibric acid Small ASD is reported on an echo of 08/14/14. WEI of 09-13-2014 is suggestive of a small PFO with a small amount of left to right shunt. LVEF 50%. Trivial to mild TR Cardiac cath of 09-18-2014 showed no evidence of intracardiac shunt. LVEF 60%. 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
[2018-06-23] MEDS: ENOXAPARIN 300 MG/3 ML (LOVENOX) MULTI-DOSE VIAL SQ SCH (14:38)
--- NOTE | 2018-06-23 15:22 | Diagnostic Imaging Report ---
PROCEDURE: US Venous Lower Ext [place]. TECHNIQUE: Multiple real-time grayscale images were obtained over the lower extremities in various projections, bilaterally. Additional duplex Doppler and color Doppler images were also obtained. INDICATION: Lower extremity redness and swelling. FINDINGS: There is no evidence of right or left lower extremity DVT. Both lower extremity deep venous systems demonstrate normal compressibility with normal response to augmentation and Valsalva. No fluid collection or mass is seen. IMPRESSION: No evidence of right or left lower extremity DVT. Dictated by: Dictated on workstation # [id number]
--- NOTE | 2018-06-23 15:24 | Diagnostic Imaging Report ---
PROCEDURE: US Bilateral lower extremity arterial. TECHNIQUE: Multiple real-time grayscale images are obtained through both lower extremity arterial systems with color Doppler imaging and color Doppler spectral analysis. INDICATION: Wound on the right toe as well as bilateral lower extremity edema. FINDINGS: Predominantly triphasic waveforms are identified throughout both common femoral as well as superficial femoral and popliteal arteries. Velocities are fairly symmetric. No high-grade stenosis or occlusion is seen. There are triphasic waveforms in the right posterior tibial artery at the ankle with monophasic flow in the dorsalis pedis which appears to be reversed. There is monophasic flow in the left posterior tibial artery. No fluid collections are seen. IMPRESSION: Fairly unremarkable bilateral lower extremity arterial Doppler apart from reversal of flow in the right dorsalis pedis. No definite occlusion is identified. Dictated by: Dictated on workstation # [id number]
[2018-06-23] MEDS ORDERED: ACETAMINOPHEN 500 MG TAB (TYLENOL) PO PRN (15:45)
[2018-06-23] MEDS ORDERED: THIAMINE INJECTION 100 MG, FOLIC ACID INJECTION 1 MG, MAGNESIUM SULFATE 2 GM, VITAMIN M... IV SCH ×5 (16:01)
[2018-06-23] MEDS ORDERED: 1/2 NS IV SOLUTION 1,000 ML IV PRN (16:01)
[2018-06-23] MEDS ORDERED: ONDANSETRON 4 MG/2 ML (SDV) Z0FRAN IV PRN (16:15)
[2018-06-23] MEDS ORDERED: SENNA W/DOCUSATE (SENOKOT S) TABLET PO PRN (16:15)
[2018-06-23] MEDS ORDERED: LORazepam 1 MG (ATIVAN) TAB PO PRN (16:15)
[2018-06-23] MEDS ORDERED: ONDANSETRON 4 MG (ZOFRAN) ORAL DISSOLVE TAB SL PRN (16:15)
[2018-06-23] MEDS ORDERED: ANTACID SUSP 30 ML UDC (MYLANTA) PO PRN (16:15)
[2018-06-23] MEDS ORDERED: D5 1/2 NS 1000 ML IV SOLUTION 1,000 ML IV PRN (16:15)
[2018-06-23 16:22] LABS: INR 1.1 (0.8-1.4); PROTHROMBIN TIME PATIENT 14.5 SEC (12.2-14.7)
[2018-06-23] MEDS: LORazepam INJ 2 MG/ML (ATIVAN) VIAL IM/IV PRN ×3 (16:31→22:19)
[2018-06-23] MEDS ORDERED: meTOprolol TARTRATE 50 MG (LOPRESSOR) TAB ONE (16:40)
[2018-06-23] MEDS ORDERED: meTOprolol TARTRATE 50 MG (LOPRESSOR) TAB PO ONE (16:45)
[2018-06-23] MEDS: THIAMINE INJECTION 100 MG, FOLIC ACID INJECTION 1 MG, MAGNESIUM SULFATE 2 GM, VITAMIN M... IV SCH ×5 (17:32)
[2018-06-23] MEDS: inSUlin ASPART (NovoLOG) 1 UNIT/0.01 ML (CHARGE PER UNIT) SQ SCH ×2 (17:33→22:54)
--- NOTE | 2018-06-23 17:39 | Diagnostic Imaging Report ---
INDICATION: Shortness of breath. EXAMINATION: 5.5 mCi tech 99m MAA was given IV for perfusion. Ventilation study could not be performed due to patient on high O2. FINDINGS: Perfusion study shows uniform distribution without evidence of segmental or subsegmental defect. IMPRESSION: No evidence of pulmonary embolus. These findings are considered low probability for PE. Dictated by: Dictated on workstation # [id number]
[2018-06-23 20:01] LABS: BILIRUBIN,URINE NEGATIVE (NEGATIVE); CLARITY,URINE CLEAR; COLOR,URINE YELLOW; GLUCOSE, URINE (UA) NEGATIVE (NEGATIVE); KETONES,URINE NEGATIVE (NEGATIVE); LEUKOCYTE ESTERASE ,URINE NEGATIVE (NEGATIVE); NITRITE,URINE NEGATIVE (NEGATIVE); PH,URINE 5 (5-9); PROTEIN,URINE 2+ (NEGATIVE); UROBILINOGEN,URINE NORMAL (NORMAL)
[2018-06-23 20:15] LABS: SQUAMOUS EPITHELIAL CELL,UR RARE /HPF
[2018-06-23] MEDS: LORazepam INJ 2 MG/ML (ATIVAN) VIAL IV PRN ×3 (20:47→23:46)
[2018-06-23] MEDS ORDERED: RT-ALBUTEROL SULF 2.5 MG/3 ML PRE-MIX VIAL INH SCH ×2 (21:00)
[2018-06-23] MEDS: PIPERACILLIN SODIUM/TAZOBACTAM 4.5 GM in NS (IVPB) 100 ML IV SCH (21:21)
[2018-06-23] MEDS ORDERED: ACETAMINOPHEN 325 MG TABLET ONE (22:12)
[2018-06-23] MEDS ORDERED: ACETAMINOPHEN 325 MG TABLET PO ONE (22:45)
[2018-06-23] MEDS: RT-ALBUTEROL SULF 2.5 MG/3 ML PRE-MIX VIAL INH PRN (22:46)
[2018-06-23] MEDS: meTOprolol TARTRATE 50 MG (LOPRESSOR) TAB PO SCH (22:53)
[2018-06-24] VITALS (24 sets, daily range): BP systolic 109–178; BP diastolic 51–111
[2018-06-24] MEDS: traZODone 50 MG (DESYREL) TAB PO SCH ×2 (01:28→20:50)
[2018-06-24] MEDS: NS IV 1000 ML 1,000 ML IV SCH ×3 (02:23→17:16)
[2018-06-24] MEDS: ENOXAPARIN 300 MG/3 ML (LOVENOX) MULTI-DOSE VIAL SQ SCH ×2 (02:23→14:34)
[2018-06-24] MEDS: LORazepam INJ 2 MG/ML (ATIVAN) VIAL IV PRN ×2 (04:07→05:07)
[2018-06-24 04:10] LABS: BASOPHILS % (AUTO) 0 % (0-10); EOSINOPHILS % (AUTO) 0 % (0-10); HEMATOCRIT 42 % (40-54); HEMOGLOBIN 13.9 G/DL (13.3-17.7); LYMPHOCYTES # (AUTO) 0.7 X 10^3 (1.0-4.0); LYMPHOCYTES % (AUTO) 6 % (12-44); MEAN CORPUSCULAR HEMOGLOBIN 29 PG (25-34); MEAN CORPUSCULAR HGB CONC 33 G/DL (32-36); MEAN CORPUSCULAR VOLUME 88 FL (80-99); MEAN PLATELET VOLUME 9.1 FL (7.4-10.4); MONOCYTES # (AUTO) 0.5 X 10^3 (0.0-1.0); MONOCYTES % (AUTO) 4 % (0-12); NEUTROPHILS # (AUTO) 10.9 X 10^3 (1.8-7.8); NEUTROPHILS % (AUTO) 90 % (42-75); PLATELET COUNT 178 10^3/uL (130-400); RED CELL DISTRIBUTION WIDTH 14.6 % (10.0-14.5); WHITE BLOOD COUNT 12.1 10^3/uL (4.3-11.0)
[2018-06-24 04:28] LABS: ALBUMIN 3.6 GM/DL (3.2-4.5); CALCIUM 8.8 MG/DL (8.5-10.1); CREATININE SERUM 1.63 MG/DL (0.60-1.30); PHOSPHORUS 3.5 MG/DL (2.3-4.7); POTASSIUM 4.2 MMOL/L (3.6-5.0)
[2018-06-24 04:30] LABS: ABG BASE EXCESS -2.3 MMOL/L (-2.5-2.5); ABG OXYGEN SATURATION 98 % (94-100); ABG PCO2 34 MMHG (35-45); ABG PH 7.41 (7.37-7.43); ABG PO2 103 MMHG (79-93); ABG TCO2 22.6 MMOL/L (21.0-31.0); ALLENS TEST YES-POS
[2018-06-24 04:31] LABS: INSPIRED O2 40%; PATIENT TEMP 98.4; VENTILATOR NO
[2018-06-24] MEDS: PIPERACILLIN SODIUM/TAZOBACTAM 4.5 GM in NS (IVPB) 100 ML IV SCH ×3 (04:50→20:39)
[2018-06-24] MEDS: ACETAMINOPHEN 325 MG TABLET PO PRN ×3 (05:06→22:04)
[2018-06-24] MEDS: RT-ALBUTEROL SULF 2.5 MG/3 ML PRE-MIX VIAL INH PRN ×3 (05:50→21:40)
--- NOTE | 2018-06-24 05:54 | Pulmonary Progress Note ---
Subjective Time Seen by a Provider: 08:10 Subjective/Events-last exam Pt has increased SOB with WOB. Sepsis Event Evaluation Height, Weight, BMI Height: 6'0.00" Weight: 262lbs. 0.0oz. 118.907706pt; 35.5 BMI Method:Stated Focused Exam Lactate Level 06/23/18 09:50: Lactic Acid Level 3.08*H 06/23/18 13:11: Lactic Acid Level 1.68 06/24/18 03:44: Lactic Acid Level 1.04 Lactic Acid Level Laboratory Tests Test 06/24/18 03:44 Lactic Acid Level 1.04 MMOL/L (0.50-2.00) Exam Exam Vital Signs Date Time Temp Pulse Resp B/P (MAP) Pulse Ox O2 Delivery O2 Flow Rate FiO2 06/24/18 05:22 100.8 06/24/18 04:50 101.5 06/24/18 04:12 98.4 06/24/18 04:00 83 31 109/53 (71) 100 Vapotherm 40.00 20.00 06/24/18 03:45 99.7 06/24/18 03:00 75 19 145/83 (103) 100 Vapotherm 40.00 20.00 06/24/18 02:27 98.4 06/24/18 02:09 100 Vapotherm 20.00 40 06/24/18 02:00 77 22 138/82 (100) 100 Vapotherm 40.00 20.00 06/24/18 01:25 97.6 06/24/18 01:00 78 22 133/82 (99) 100 Vapotherm 40.00 20.00 06/24/18 01:00 78 06/24/18 00:00 99.2 06/24/18 00:00 87 25 149/89 (109) 98 Vapotherm 40.00 20.00 06/23/18 23:04 101.4 06/23/18 23:00 98 31 164/135 (145) 98 Vapotherm 40.00 20.00 06/23/18 22:45 102.5 06/23/18 22:44 Vapotherm 15.00 40 06/23/18 22:00 98 42 147/85 (105) 90 Vapotherm 40.00 20.00 06/23/18 21:00 96 33 169/98 (121) 94 Vapotherm 40.00 20.00 06/23/18 21:00 100.7 06/23/18 20:00 93 18 150/86 (107) 95 Vapotherm 40.00 20.00 06/23/18 20:00 94 Vapotherm 20.00 40 06/23/18 19:00 95 06/23/18 19:00 99.5 06/23/18 19:00 93 20 167/96 (119) 99 Vapotherm 40.00 20.00 06/23/18 18:19 100 Vapotherm 20.00 40 06/23/18 18:00 91 16 159/95 (116) 100 Vapotherm 40.00 20.00 06/23/18 17:30 92 21 141/89 (106) 98 Vapotherm 40.00 20.00 06/23/18 16:48 102.0 06/23/18 16:30 105 34 176/113 (134) 91 Vapotherm 40.00 20.00 06/23/18 16:00 94 Vapotherm 20.00 40 06/23/18 16:00 105 16 178/103 (128) 90 Vapotherm 40.00 20.00 06/23/18 15:52 102.4 06/23/18 15:30 104 32 129/105 (113) 98 Vapotherm 40.00 20.00 06/23/18 15:00 101 22 125/92 (103) 100 Vapotherm 40.00 20.00 06/23/18 14:30 101 27 119/97 (104) 97 Vapotherm 40.00 20.00 06/23/18 14:00 99 22 142/115 (124) 99 Vapotherm 40.00 20.00 06/23/18 13:45 101 15 99 Vapotherm 40.00 20.00 06/23/18 13:30 99 18 162/93 (116) 92 Vapotherm 40.00 20.00 06/23/18 13:15 99 15 103/90 (94) 96 Vapotherm 40.00 20.00 06/23/18 13:00 100 8 150/95 (113) 96 Vapotherm 40.00 20.00 06/23/18 12:53 102 06/23/18 12:41 102 19 138/80 (99) 93 Vapotherm 06/23/18 10:38 93 Nasal Cannula 4.00 06/23/18 10:03 90 Nasal Cannula 4.00 06/23/18 09:32 100.9 102 22 123/81 (95) 91 Nasal Cannula 4.00 I & O 06/24/18 07:00 Intake Total 4037.7 ml Output Total 1805 ml Balance 2232.7 ml Height & Weight Height: 6'0.00" Weight: 262lbs. 0.0oz. 118.747835oz; 35.5 BMI Method:Stated Capillary Refill: Less Than 3 Seconds Gastrointestinal: normal bowel sounds, non tender, soft Results Lab Laboratory Tests 06/23/18 09:50 06/24/18 03:44 Assessment/Plan Assessment/Plan -Acute respiratory distress with hypoxia and CP doubt PE V/Q is negative -Stat bilateral dopplers- negative Severe Sepsis secondary to LLE cellulitis and possible PNA tm 102.5 -Cautious IVF secondary to previous flash pulmonary edema -[place] Abx to Zosyn, and Vanco -Demarco cultures Alcohol withdrawl -Currently over sedated -Will change Ativan to 1-2mg IV Q 4 -Add precedex gtt NIKHIL -IVF Elevated troponin -Trend troponins - EKG -Cardiology pending Obesity with probable NATE -Will start BIPAP PRN and QHS ILIA VELASQUEZ DO Jun 24, 2018 05:54
[2018-06-24] MEDS: inSUlin ASPART (NovoLOG) 1 UNIT/0.01 ML (CHARGE PER UNIT) SQ SCH ×4 (05:59→20:23)
[2018-06-24] MEDS ORDERED: IBUPROFEN TABLET 200 MG TAB PO PRN (06:15)
[2018-06-24] MEDS ORDERED: LORazepam INJ 2 MG/ML (ATIVAN) VIAL IV PRN (06:15)
[2018-06-24] MEDS ORDERED: DEXMEDETOMIDINE INJECTION 200 MCG in NS (IVPB) 50 ML IV SCH ×4 (06:15)
--- NOTE | 2018-06-24 08:00 | Diagnostic Imaging Report ---
INDICATION: Shortness of air. TECHNIQUE: Single view chest 3:17 AM. CORRELATION STUDY: 06/23/2018 FINDINGS: Heart size relatively stable but is enlarged. Mediastinum is prominent accentuated from prior study. Overall appears to be increasing severity vascular congestion. Component of underlying perihilar edema and/or infiltrate is not excluded left greater than right. Additional parenchymal densities about the particularly left lung base noted. There is some motion artifact. IMPRESSION: 1. Appears to be increasing in severity likely vascular congestion and component of edema. Superimposed areas of infiltrate would be difficult to exclude. Followup imaging is recommended. Dictated by: Dictated on workstation # [id number]
[2018-06-24 09:30] LABS: BILIRUBIN,URINE NEGATIVE (NEGATIVE); CLARITY,URINE CLEAR; COLOR,URINE YELLOW; GLUCOSE, URINE (UA) NEGATIVE (NEGATIVE); KETONES,URINE 1+ (NEGATIVE); LEUKOCYTE ESTERASE ,URINE 3+ (NEGATIVE); NITRITE,URINE NEGATIVE (NEGATIVE); PH,URINE 6 (5-9); PROTEIN,URINE 2+ (NEGATIVE); UROBILINOGEN,URINE 1 MG/DL (NORMAL)
[2018-06-24 09:45] LABS: BACTERIA,URINE NEGATIVE /HPF; RBC,URINE 50-100 /HPF
[2018-06-24] MEDS: meTOprolol TARTRATE 50 MG (LOPRESSOR) TAB PO SCH ×2 (10:27→20:50)
[2018-06-24] MEDS: THIAMINE INJECTION 100 MG, FOLIC ACID INJECTION 1 MG, MAGNESIUM SULFATE 2 GM, VITAMIN M... IV SCH ×5 (10:27)
[2018-06-24] MEDS ORDERED: FUROSEMIDE 40 MG/4 ML INJ (LASIX) IVP NR (11:30)
--- NOTE | 2018-06-24 11:31 | Progress Note-Cardiology ---
Cardiology SOAP Progress Note Subjective: Had a rough nigh of some agitation and confusion Sleeping and on BiPAP at time of my exam by bedside who had been with him all night and was able to detail symptoms and hosp course overnight No reports of cp or palp or syncope Objective: I&O/Vital Signs 06/24/18 06/24/18 06/24/18 06/24/18 00:00 00:00 00:00 01:00 Temp 99.2 Pulse 87 78 Resp 25 B/P (MAP) 149/89 (109) Pulse Ox 94 98 O2 Delivery Vapotherm Vapotherm O2 Flow Rate 20.00 40.00 20.00 FiO2 40 06/24/18 06/24/18 06/24/18 06/24/18 01:00 01:25 02:00 02:09 Temp 97.6 Pulse 78 77 Resp 22 22 B/P (MAP) 133/82 (99) 138/82 (100) Pulse Ox 100 100 100 O2 Delivery Vapotherm Vapotherm Vapotherm O2 Flow Rate 40.00 40.00 20.00 20.00 20.00 FiO2 40 06/24/18 06/24/18 06/24/18 06/24/18 02:27 03:00 03:45 04:00 Temp 98.4 99.7 Pulse 75 Resp 19 B/P (MAP) 145/83 (103) Pulse Ox 100 94 O2 Delivery Vapotherm Vapotherm O2 Flow Rate 40.00 20.00 20.00 FiO2 40 06/24/18 06/24/18 06/24/18 06/24/18 04:00 04:12 04:50 05:00 Temp 98.4 101.5 Pulse 83 90 Resp 31 27 B/P (MAP) 109/53 (71) 149/82 (104) Pulse Ox 100 100 O2 Delivery Vapotherm Vapotherm O2 Flow Rate 40.00 40.00 20.00 20.00 06/24/18 06/24/18 06/24/18 06/24/18 05:22 05:50 06:00 06:13 Temp 100.8 99.3 Pulse 87 Resp 33 B/P (MAP) 157/88 (111) Pulse Ox 96 O2 Delivery Vapotherm Vapotherm O2 Flow Rate 30.00 40.00 20.00 FiO2 40 06/24/18 06/24/18 06/24/18/30/18 07:00 07:00 07:30 08:00 Temp 100.1 Pulse 82 82 76 Resp 21 39 B/P (MAP) 146/77 (100) 142/82 (102) Pulse Ox 99 100 O2 Delivery Vapotherm Vapotherm O2 Flow Rate 40.00 40.00 20.00 20.00 06/24/18 06/24/18 06/24/18 08:20 09:00 09:15 Temp 99.4 Pulse 75 Resp 21 B/P (MAP) 135/83 (100) Pulse Ox 94 99 O2 Delivery NIV Bilevel Vapotherm O2 Flow Rate 40.00 20.00 06/24/18 00:00 Intake Total 1572.5 ml Output Total 1400 ml Balance 172.5 ml Weight (Pounds): 264 Weight (Ounces): 0.2 Weight (Calculated Kilograms): 119.469590 Constitutional: well-developed, well-nourished Respiratory: No accessory muscle use; other (good bilat air entry, but diminished at the bases; a few scattered rhonchi and wheezes) Cardiovascular: regular rate-rhythm, S1 and S2, systolic murmur (soft TERRANCE at card base) Gastrointestional: No tender; soft; No guarding, No rebound; audible bowel sounds Extremities: other (redness and raised temperature over the skin of the R leg) ; No clubbing, No cyanosis Neurologic/Psychiatric: oriented x 3, grossly intact, power is 5/5 both on sides Skin: No ulcerations on exposed areas; other (see under extremity exam) Results/Procedures: Labs Laboratory Tests 06/23/18 13:11: Lactic Acid Level 1.68, B-Type Natriuretic Peptide 487.1H 06/23/18 13:45: Blood Gas Puncture Site R RAD, Blood Gas Patient Temperature 99.0, Arterial Blood pH 7.43, Arterial Blood Partial Pressure CO2 36, Arterial Blood Partial Pressure O2 81, Arterial Blood HCO3 23, Arterial Blood Total CO2 24.2, Arterial Blood Oxygen Saturation 97, Arterial Blood Base Excess -0.6, Damon Test YES-POS , Blood Gas Ventilator Setting NO, Blood Gas Inspired Oxygen 20L / 40% VAPOTHERM 06/23/18 15:46: Prothrombin Time 14.5, INR Comment 1.1, Activated Partial Thromboplast Time 30, Troponin I 0.92*H, Serum Alcohol < 10 06/23/18 15:50: Urine Color YELLOW, Urine Clarity CLEAR, Urine pH 5, Urine Specific Urania 1.020, Urine Protein 2+H, Urine Glucose (UA) NEGATIVE, Urine Ketones NEGATIVE, Urine Nitrite NEGATIVE, Urine Bilirubin NEGATIVE, Urine Urobilinogen NORMAL, Urine Leukocyte Esterase NEGATIVE, Urine RBC (Auto) NEGATIVE, Urine RBC NONE, Urine WBC NONE, Urine Squamous Epithelial Cells RARE, Urine Crystals NONE, Urine Bacteria NONE, Urine Casts NONE, Urine Mucus TRACE, Urine Culture Indicated NO 06/23/18 16:35: Glucometer 120H 06/23/18 22:50: Glucometer 120H 06/24/18 03:44: White Blood Count 12.1H, Red Blood Count 4.80, Hemoglobin 13.9, Hematocrit 42, Mean Corpuscular Volume 88, Mean Corpuscular Hemoglobin 29, Mean Corpuscular Hemoglobin Concent 33, Red Cell Distribution Width 14.6H, Platelet Count 178, Mean Platelet Volume 9.1, Neutrophils (%) (Auto) 90H, Lymphocytes (%) (Auto) 6L , Monocytes (%) (Auto) 4, Eosinophils (%) (Auto) 0, Basophils (%) (Auto) 0, Neutrophils # (Auto) 10.9H, Lymphocytes # (Auto) 0.7L, Monocytes # (Auto) 0.5, Eosinophils # (Auto) 0.0, Basophils # (Auto) 0.0, Sodium Level 137, Potassium Level 4.2, Chloride Level 102, Carbon Dioxide Level 24, Anion Gap 11, Blood Urea Nitrogen 16, Creatinine 1.63H, Estimat Glomerular Filtration Rate 43, BUN/ Creatinine Ratio 10, Glucose Level 111H, Lactic Acid Level 1.04, Calcium Level 8.8, Phosphorus Level 3.5, Magnesium Level 2.0, Aspartate Amino Transf (AST/SGOT ) 38H, Alanine Aminotransferase (ALT/SGPT) 31, Albumin 3.6 06/24/18 04:20: Blood Gas Puncture Site RIGHT RADIAL, Blood Gas Patient Temperature 98.4, Arterial Blood pH 7.41, Arterial Blood Partial Pressure CO2 34L, Arterial Blood Partial Pressure O2 103H, Arterial Blood HCO3 22L, Arterial Blood Total CO2 22.6 , Arterial Blood Oxygen Saturation 98, Arterial Blood Base Excess -2.3, Damon Test YES-POS, Blood Gas Ventilator Setting NO, Blood Gas Inspired Oxygen 40% 06/24/18 09:15: Urine Color YELLOW, Urine Clarity CLEAR, Urine pH 6, Urine Specific Urania 1.020, Urine Protein 2+H, Urine Glucose (UA) NEGATIVE, Urine Ketones 1+H, Urine Nitrite NEGATIVE, Urine Bilirubin NEGATIVE, Urine Urobilinogen 1, Urine Leukocyte Esterase 3+H, Urine RBC (Auto) 4+H, Urine RBC 50-100H, Urine WBC 10- 25H, Urine Squamous Epithelial Cells NONE, Urine Crystals NONE, Urine Bacteria NEGATIVE, Urine Casts NONE, Urine Mucus NEGATIVE, Urine Culture Indicated YES 06/24/18 11:07: Glucometer 97 Microbiology 06/23/18 Blood Culture - Preliminary, Resulted 06/23/18 Influenza Types A,B Antigen (CARLITA) - Final, Complete Laboratory Tests 06/23/18 09:50 06/24/18 03:44 A/P: Assessment: Acute resp insufficiency, probably multifactorial (see below) Sepsis, likely due to pneumonia and R leg cellulitis Acute diastolic CHF Acute renal insufficiency of undetermined etiology Mild troponin elevation, likely due to hypoxia during shortness of breath on CAD - Cardiac cath of 09-18-2014 that showed 80% mid vessel bifurcation stenosis in the LAD to which balloon angioplasty was undertaken, with reduction of stenosis to approximately 50%. The rest of the arteries have moderate disease, including 50% stenoses in the proximal RCA DM II with h/o diabetic nephropathy and CKD 2 Bilateral leg swelling Hypertension with LVH on surface ECG Obesity with BMI approx 36 Hyperlipidemia, difficult control despite combination therapy with atorvastatin and fenofibric acid Echo on 06/23/18: LVEF 55-60%, Mild AI, PASP 35 mmHg, normal right heart size Small ASD is reported on an echo of 08/14/14. WEI of 09-13-2014 is suggestive of a small PFO with a small amount of left to right shunt. LVEF 50%. Trivial to mild TR Cardiac cath of 09-18-2014 showed no evidence of intracardiac shunt. LVEF 60%. 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
[2018-06-24] MEDS: hydrALAZINE (APESOLINE) 20 MG/ML VIAL IV SCH ×2 (12:03→17:59)
[2018-06-24] MEDS ORDERED: VANCOMYCIN INJECTION 1,750 MG in NS IV 500 ML 500 ML IV SCH (14:00)
--- NOTE | 2018-06-24 14:14 | History & Physicial (CHS) ---
HPI History of Present Illness: This is a 62yo male patient of Dr. Askew's who presented to ER by EMS for sudden onset severe dyspnea and hypoxia. reports that patient c/o of sudden onset of chills which progressed to generalized not feeling well and shortness of breath. She left work to come home and take him to the ER but as they started en route he became severely dyspneic so she returned home and called EMS. He was found to have sats in the 70's by EMS. Patient had a similar episode of sudden onset fever/chills in December requiring admission. At that time he was septic from cellulits and developed pulmonary edema. Pt was noted to have cellulits of his R lower leg in the ER during this current admission as well as fever up to 102. Unknown injury to leg but states they had trimmed some thorny bushes the last couple of days. Pt has a history of alcoholism but to her knowledge had not been drinking until she recently found out he has been drinking about 3 days per week. Source: family Exam Limitations: clinical condition Date seen by provider: Jun 24, 2018 Time Seen by Provider: 08:15 Attending Physician Jordan Diaz DO PCP Dr. Askew Consult Date of Admission Jun 23, 2018 at 11:35 Home Medications Home Medications Reviewed patient Home Medication Reconciliation performed by pharmacy medication reconciliations armorer technician and/or nursing. Patients Allergies have been reviewed. Allergies Coded Allergies: No Known Drug Allergies (Verified , 05/19/08) Uncoded Allergies: [id number] (HAYFEVER) (Allergy, Mild, 12/21/08) HWI-Kptpsp-Gaaecf Hx Patient Social History Alcohol Use: Past History Recreational Drug Use: No Smoking Status: Former Smoker Former smoker/When Quit: Sep 13, 1974 Type Used: Smokeless Tobacco 2nd Hand Smoke Exposure: No Recent Foreign Travel: No Contact w/other who traveled: No Recent Hopitalizations: No Recent Infectious Disease Expo: No Physical Abuse Screen: No Sexual Abuse: No Immunizations Up To Date Tetanus Booster (TDap): More than 5yrs Date of Pneumonia Vaccine: Aug 14, 2017 Date of Influenza Vaccine: Apr 25, 2018 Past Medical History CAD s/p stent x2 DM Type 2 Hypertension Hyperlipidemia Larios's disease DDD/chronic back pain gout BPH GERD IBS s/p umbilical hernia repair s/p carpal tunnel repair s/p anterior compartment syndrome L leg s/p sarahi knee scopes Review of Systems ([facility]) Constitutional: see HPI Reviewed Test Results Reviewed Test Results Lab Laboratory Tests 06/23/18 09:50: White Blood Count 17.6H, Red Blood Count 5.42, Hemoglobin 15.4, Hematocrit 47, Mean Corpuscular Volume 86, Mean Corpuscular Hemoglobin 28, Mean Corpuscular Hemoglobin Concent 33, Red Cell Distribution Width 14.1, Platelet Count 254, Mean Platelet Volume 9.1, Neutrophils (%) (Auto) 92H, Lymphocytes (%) (Auto) 2L , Monocytes (%) (Auto) 6, Eosinophils (%) (Auto) 0, Basophils (%) (Auto) 0, Neutrophils # (Auto) 16.1H, Lymphocytes # (Auto) 0.4L, Monocytes # (Auto) 1.0, Eosinophils # (Auto) 0.1, Basophils # (Auto) 0.0, Neutrophils % (Manual) 75, Lymphocytes % (Manual) 2, Monocytes % (Manual) 2, Eosinophils % (Manual) 0, Basophils % (Manual) 0, Band Neutrophils 21, Blood Morphology Comment NORMAL, Sodium Level 140, Potassium Level 4.0, Chloride Level 106, Carbon Dioxide Level 19L, Anion Gap 15H, Blood Urea Nitrogen 17, Creatinine 1.69H, Estimat Glomerular Filtration Rate 41, BUN/Creatinine Ratio 10, Glucose Level 95, Lactic Acid Level 3.08*H, Calcium Level 9.6, Corrected Calcium 9.5, Total Bilirubin 0.5, Aspartate Amino Transf (AST/SGOT) 36H, Alanine Aminotransferase ( ALT/SGPT) 34, Alkaline Phosphatase 54, Troponin I 0.51*H, Total Protein 6.7, Albumin 4.1 06/23/18 10:42: D-Dimer 1.07H 06/23/18 13:11: Lactic Acid Level 1.68, B-Type Natriuretic Peptide 487.1H 06/23/18 13:45: Blood Gas Puncture Site R RAD, Blood Gas Patient Temperature 99.0, Arterial Blood pH 7.43, Arterial Blood Partial Pressure CO2 36, Arterial Blood Partial Pressure O2 81, Arterial Blood HCO3 23, Arterial Blood Total CO2 24.2, Arterial Blood Oxygen Saturation 97, Arterial Blood Base Excess -0.6, Damon Test YES-POS , Blood Gas Ventilator Setting NO, Blood Gas Inspired Oxygen 20L / 40% VAPOTHERM 11/29/18 15:46: Prothrombin Time 14.5, INR Comment 1.1, Activated Partial Thromboplast Time 30, Troponin I 0.92*H, Serum Alcohol < 10 06/23/18 15:50: Urine Color YELLOW, Urine Clarity CLEAR, Urine pH 5, Urine Specific [place] 1.020, Urine Protein 2+H, Urine Glucose (UA) NEGATIVE, Urine Ketones NEGATIVE, Urine Nitrite NEGATIVE, Urine Bilirubin NEGATIVE, Urine Urobilinogen NORMAL, Urine Leukocyte Esterase NEGATIVE, Urine RBC (Auto) NEGATIVE, Urine RBC NONE, Urine WBC NONE, Urine Squamous Epithelial Cells RARE, Urine Crystals NONE, Urine Bacteria NONE, Urine Casts NONE, Urine Mucus TRACE, Urine Culture Indicated NO 06/23/18 16:35: Glucometer 120H 06/23/18 22:50: Glucometer 120H 06/24/18 03:44: White Blood Count 12.1H, Red Blood Count 4.80, Hemoglobin 13.9, Hematocrit 42, Mean Corpuscular Volume 88, Mean Corpuscular Hemoglobin 29, Mean Corpuscular Hemoglobin Concent 33, Red Cell Distribution Width 14.6H, Platelet Count 178, Mean Platelet Volume 9.1, Neutrophils (%) (Auto) 90H, Lymphocytes (%) (Auto) 6L , Monocytes (%) (Auto) 4, Eosinophils (%) (Auto) 0, Basophils (%) (Auto) 0, Neutrophils # (Auto) 10.9H, Lymphocytes # (Auto) 0.7L, Monocytes # (Auto) 0.5, Eosinophils # (Auto) 0.0, Basophils # (Auto) 0.0, Sodium Level 137, Potassium Level 4.2, Chloride Level 102, Carbon Dioxide Level 24, Anion Gap 11, Blood Urea Nitrogen 16, Creatinine 1.63H, Estimat Glomerular Filtration Rate 43, BUN/ Creatinine Ratio 10, Glucose Level 111H, Lactic Acid Level 1.04, Calcium Level 8.8, Phosphorus Level 3.5, Magnesium Level 2.0, Aspartate Amino Transf (AST/SGOT ) 38H, Alanine Aminotransferase (ALT/SGPT) 31, Albumin 3.6 06/24/18 04:20: Blood Gas Puncture Site RIGHT RADIAL, Blood Gas Patient Temperature 98.4, Arterial Blood pH 7.41, Arterial Blood Partial Pressure CO2 34L, Arterial Blood Partial Pressure O2 103H, Arterial Blood HCO3 22L, Arterial Blood Total CO2 22.6 , Arterial Blood Oxygen Saturation 98, Arterial Blood Base Excess -2.3, Damon Test YES-POS, Blood Gas Ventilator Setting NO, Blood Gas Inspired Oxygen 40% 06/24/18 09:15: Urine Color YELLOW, Urine Clarity CLEAR, Urine pH 6, Urine Specific [place] 1.020, Urine Protein 2+H, Urine Glucose (UA) NEGATIVE, Urine Ketones 1+H, Urine Nitrite NEGATIVE, Urine Bilirubin NEGATIVE, Urine Urobilinogen 1, Urine Leukocyte Esterase 3+H, Urine RBC (Auto) 4+H, Urine RBC 50-100H, Urine WBC 10- 25H, Urine Squamous Epithelial Cells NONE, Urine Crystals NONE, Urine Bacteria NEGATIVE, Urine Casts NONE, Urine Mucus NEGATIVE, Urine Culture Indicated YES 06/24/18 11:07: Glucometer 97 Radiology Date of Exam: 06/23/18 CHEST 1 VIEW, AP/PA ONLY INDICATION: Fever and cough. TIME OF EXAM: 10:16 a.m. Correlation is made with prior study from 01/06/2018. The heart size is stable. Visualized lung swan appear to be fairly clear. There is some increased density to the left base. Some infiltrate at this location cannot be excluded. The pulmonary vascularity is normal. No effusion or pneumothorax is identified. IMPRESSION: Questionable infiltrate or atelectasis in the left base. The study is otherwise unremarkable. Date of Exam: 06/23/18 US VENOUS LOWER EXT SARAHI PROCEDURE: US Venous Lower Ext Sarahi. TECHNIQUE: Multiple real-time grayscale images were obtained over the lower extremities in various projections, bilaterally. Additional duplex Doppler and color Doppler images were also obtained. INDICATION: Lower extremity redness and swelling. FINDINGS: There is no evidence of right or left lower extremity DVT. Both lower extremity deep venous systems demonstrate normal compressibility with normal response to augmentation and Valsalva. No fluid collection or mass is seen. IMPRESSION: No evidence of right or left lower extremity DVT. Date of Exam: 06/23/18 US SARAHI LOWER EXT [id number] PROCEDURE: US Bilateral lower extremity arterial. TECHNIQUE: Multiple real-time grayscale images are obtained through both lower extremity arterial systems with color Doppler imaging and color Doppler spectral analysis. INDICATION: Wound on the right toe as well as bilateral lower extremity edema. FINDINGS: Predominantly triphasic waveforms are identified throughout both common femoral as well as superficial femoral and popliteal arteries. Velocities are fairly symmetric. No high-grade stenosis or occlusion is seen. There are triphasic waveforms in the right posterior tibial artery at the ankle with monophasic flow in the dorsalis pedis which appears to be reversed. There is monophasic flow in the left posterior tibial artery. No fluid collections are seen. IMPRESSION: Fairly unremarkable bilateral lower extremity arterial Doppler apart from reversal of flow in the right dorsalis pedis. No definite occlusion is identified. Date of Exam: 06/23/18 LUNG SCAN PERFUSION INDICATION: Shortness of breath. EXAMINATION: 5.5 mCi tech 99m MAA was given IV for perfusion. Ventilation study could not be performed due to patient on high O2. FINDINGS: Perfusion study shows uniform distribution without evidence of segmental or subsegmental defect. IMPRESSION: No evidence of pulmonary embolus. These findings are considered low probability for PE. Physical Exam-([facility]) Physical Exam Vital Signs VS - Last 72 Hours, by Label 06/23/18 06/23/18 06/23/18 06/23/18 09:32 10:03 10:38 12:41 Temp 100.9 Pulse 102 102 Resp 22 19 B/P (MAP) 123/81 (95) 138/80 (99) Pulse Ox 91 90 93 93 O2 Delivery Nasal Cannula Nasal Cannula Nasal Cannula Vapotherm O2 Flow Rate 4.00 4.00 4.00 06/23/18 06/23/18 06/23/18 06/23/18 12:53 13:00 13:15 13:30 Pulse 102 100 99 99 Resp 8 15 18 B/P (MAP) 150/95 (113) 103/90 (94) 162/93 (116) Pulse Ox 96 96 92 O2 Delivery Vapotherm Vapotherm Vapotherm O2 Flow Rate 40.00 40.00 40.00 20.00 20.00 20.00 06/23/18 06/23/18 06/23/18 06/23/18 13:45 14:00 14:30 15:00 Pulse 101 99 101 101 Resp 15 22 27 22 B/P (MAP) 142/115 (124) 119/97 (104) 125/92 (103) Pulse Ox 99 99 97 100 O2 Delivery Vapotherm Vapotherm Vapotherm Vapotherm O2 Flow Rate 40.00 40.00 40.00 40.00 20.00 20.00 20.00 20.00 06/23/18 06/23/18 06/23/18 06/23/18 15:30 15:52 16:00 16:00 Temp 102.4 Pulse 104 105 Resp 32 16 B/P (MAP) 129/105 (113) 178/103 (128) Pulse Ox 98 90 94 O2 Delivery Vapotherm Vapotherm Vapotherm O2 Flow Rate 40.00 40.00 20.00 20.00 20.00 FiO2 40 06/23/18 06/23/18 06/23/18 06/23/18 16:30 16:48 17:30 18:00 Temp 102.0 Pulse 105 92 91 Resp 34 21 16 B/P (MAP) 176/113 (134) 141/89 (106) 159/95 (116) Pulse Ox 91 98 100 O2 Delivery Vapotherm Vapotherm Vapotherm O2 Flow Rate 40.00 40.00 40.00 20.00 20.00 20.00 06/23/18 06/23/18 06/23/18 06/23/18 18:19 19:00 19:00 19:00 Temp 99.5 Pulse 93 95 Resp 20 B/P (MAP) 167/96 (119) Pulse Ox 100 99 O2 Delivery Vapotherm Vapotherm O2 Flow Rate 20.00 40.00 20.00 FiO2 40 06/23/18 06/23/18 06/23/18 06/23/18 20:00 20:00 21:00 21:00 Temp 100.7 Pulse 93 96 Resp 18 33 B/P (MAP) 150/86 (107) 169/98 (121) Pulse Ox 94 95 94 O2 Delivery Vapotherm Vapotherm Vapotherm O2 Flow Rate 20.00 40.00 40.00 20.00 20.00 FiO2 40 06/23/18 06/23/18 06/23/18 06/23/18 22:00 22:44 22:45 23:00 Temp 102.5 Pulse 98 98 Resp 42 31 B/P (MAP) 147/85 (105) 164/135 (145) Pulse Ox 90 98 O2 Delivery Vapotherm Vapotherm Vapotherm O2 Flow Rate 40.00 15.00 40.00 20.00 20.00 FiO2 40 06/23/18 06/24/18 06/24/18 06/24/18 23:04 00:00 00:00 00:00 Temp 101.4 99.2 Pulse 87 Resp 25 B/P (MAP) 149/89 (109) Pulse Ox 94 98 O2 Delivery Vapotherm Vapotherm O2 Flow Rate 20.00 40.00 20.00 FiO2 40 06/24/18 06/24/18 06/24/18 06/24/18 01:00 01:00 01:25 02:00 Temp 97.6 Pulse 78 78 77 Resp 22 22 B/P (MAP) 133/82 (99) 138/82 (100) Pulse Ox 100 100 O2 Delivery Vapotherm Vapotherm O2 Flow Rate 40.00 40.00 20.00 20.00 06/24/18 06/24/18 06/24/18 06/24/18 02:09 02:27 03:00 03:45 Temp 98.4 99.7 Pulse 75 Resp 19 B/P (MAP) 145/83 (103) Pulse Ox 100 100 O2 Delivery Vapotherm Vapotherm O2 Flow Rate 20.00 40.00 20.00 FiO2 40 06/24/18 06/24/18 06/24/18 06/24/18 04:00 04:00 04:12 04:50 Temp 98.4 101.5 Pulse 83 Resp 31 B/P (MAP) 109/53 (71) Pulse Ox 94 100 O2 Delivery Vapotherm Vapotherm O2 Flow Rate 20.00 40.00 20.00 FiO2 40 06/24/18 06/24/18 06/24/18 06/24/18 05:00 05:22 05:50 06:00 Temp 100.8 Pulse 90 87 Resp 27 33 B/P (MAP) 149/82 (104) 157/88 (111) Pulse Ox 100 96 O2 Delivery Vapotherm Vapotherm Vapotherm O2 Flow Rate 40.00 30.00 40.00 20.00 20.00 FiO2 40 06/24/18 06/24/18 06/24/18 06/24/18 06:13 07:00 07:00 07:30 Temp 99.3 100.1 Pulse 82 82 Resp 21 B/P (MAP) 146/77 (100) Pulse Ox 99 O2 Delivery Vapotherm O2 Flow Rate 40.00 20.00 06/24/18 06/24/18 06/24/18 06/24/18 08:00 08:20 09:00 09:15 Temp 99.4 Pulse 76 75 Resp 39 21 B/P (MAP) 142/82 (102) 135/83 (100) Pulse Ox 100 94 99 O2 Delivery Vapotherm NIV Bilevel Vapotherm O2 Flow Rate 40.00 40.00 20.00 20.00 Capillary Refill : Less Than 3 Seconds General Appearance: WD/WN, obese, other (sleeping) Respiratory: lungs clear, other (on Bipap) Cardiovascular: regular rate, rhythm Gastrointestinal: non tender, soft Extremities: inflammation (cellulitis to the LE), swelling Skin: normal color, warm/dry Assessment/Plan Assessment/Plan Admission Dx 1. Respiratory Distress with hypoxia 2. Severe sepsis likely secondary to LLE cellulitis vs pneumonia 3. NIKHIL 4. Elevated troponin; hx CAD s/p ballon angioplasty 5. R leg cellulitis Admission Status: Inpatient Order (span 2 midnights) Reason for Inpatient Admission: ICU admission for respiratory distress requing oxygen/bi-pap and sepesis Assessment & Plan 1. Respiratory Distress with hypoxia - Admitted to ICU; Dr. Suarez consulted for critical care management - Evaluation for PE negative (venous dopplers and VQ scan negative) - treated with Lovenox 2. Severe sepsis likely secondary to LLE cellulitis vs pneumonia with leukocytosis, lactic acidosis and fever; BP normal - started on Zosyn, Vanco - carrera cultures pending 3. NIKHIL - Cr on admission 1.69 --> 1.63 GFR 43 - IVF 4. Elevated troponin; hx CAD s/p balloon angioplasty -likely secondary to hypoxia; Dr. Cr consulted - on ASA, beta estrellita; Dr. Cr has added diuretic 5. R leg cellulitis - on Zosyn and Vanco 6. DM Type 2 with other specified complications of hypertension and hyperlipidemia - BS stable since admission - on SSI 7. Obesity with probable NATE - will need sleep study as OP - Bipap prn and hs 8. Hx of alcohol use - was put on CIWA Withdrawal protocol but was oversedated due to counting symptoms associated with fever as withdrawal - will give Ativan 1-2mg q4h as needed; Dr. Suarez has started Precedex gtt Dr. Parish will be assuming care for the weekend. Clinical Quality Measures DVT/VTE Risk/Contraindication: Risk Factor Score Per Nursin RFS Level Per Nursing on Admit: 4+=Very High JORDAN DIAZ DO Jun 24, 2018 14:14
[2018-06-25] VITALS (25 sets, daily range): BP systolic 100–173; BP diastolic 65–101
[2018-06-25] MEDS: hydrALAZINE (APESOLINE) 20 MG/ML VIAL IV SCH ×5 (00:15→23:57)
[2018-06-25] MEDS: RT-ALBUTEROL SULF 2.5 MG/3 ML PRE-MIX VIAL INH PRN ×6 (00:51→21:35)
[2018-06-25] MEDS: ENOXAPARIN 300 MG/3 ML (LOVENOX) MULTI-DOSE VIAL SQ SCH ×2 (02:45→14:18)
[2018-06-25] MEDS: PIPERACILLIN SODIUM/TAZOBACTAM 4.5 GM in NS (IVPB) 100 ML IV SCH ×3 (04:23→20:29)
[2018-06-25] MEDS: NS IV 1000 ML 1,000 ML IV SCH (04:27)
[2018-06-25 04:35] LABS: BASOPHILS % (AUTO) 0 % (0-10); EOSINOPHILS % (AUTO) 1 % (0-10); HEMATOCRIT 39 % (40-54); HEMOGLOBIN 12.5 G/DL (13.3-17.7); LYMPHOCYTES % (AUTO) 13 % (12-44); MEAN CORPUSCULAR HEMOGLOBIN 29 PG (25-34); MEAN CORPUSCULAR HGB CONC 32 G/DL (32-36); MEAN CORPUSCULAR VOLUME 89 FL (80-99); MEAN PLATELET VOLUME 9.2 FL (7.4-10.4); MONOCYTES # (AUTO) 0.5 X 10^3 (0.0-1.0); MONOCYTES % (AUTO) 7 % (0-12); NEUTROPHILS # (AUTO) 6.1 X 10^3 (1.8-7.8); NEUTROPHILS % (AUTO) 79 % (42-75); PLATELET COUNT 140 10^3/uL (130-400); RED BLOOD COUNT 4.38 10^6/uL (4.35-5.85); RED CELL DISTRIBUTION WIDTH 14.6 % (10.0-14.5); WHITE BLOOD COUNT 7.7 10^3/uL (4.3-11.0)
[2018-06-25 04:48] LABS: CALCIUM 8.6 MG/DL (8.5-10.1); CREATININE SERUM 1.27 MG/DL (0.60-1.30); MAGNESIUM 2.2 MG/DL (1.8-2.4); PHOSPHORUS 2.1 MG/DL (2.3-4.7); POTASSIUM 3.7 MMOL/L (3.6-5.0)
[2018-06-25] MEDS: inSUlin ASPART (NovoLOG) 1 UNIT/0.01 ML (CHARGE PER UNIT) SQ SCH ×4 (04:52→20:36)
[2018-06-25] MEDS ORDERED: NS IV 1000 ML 1,000 ML IV SCH (06:45)
--- NOTE | 2018-06-25 07:55 | Diagnostic Imaging Report ---
INDICATION: Shortness of air. TIME OF EXAM: 3:49 AM CORRELATION is made with prior study 06/24/2018. FINDINGS: The heart is enlarged. The lungs demonstrate improved aeration when compared with the prior exam. The pulmonary vascularity is normal. No effusion or pneumothorax is seen. IMPRESSION: Overall improved aeration to left lung when compared to the examination of one day earlier. Dictated by: Dictated on workstation # [id number]
[2018-06-25] MEDS ORDERED: POTASSIUM PHOSPHATE INJ 30 MM in NS (IVPB) 250 ML IV ONE (08:00)
--- NOTE | 2018-06-25 08:13 | Pulmonary Progress Note ---
Subjective Time Seen by a Provider: 08:11 Subjective/Events-last exam Pt is doing much better Tm 101.3 Sepsis Event Evaluation Height, Weight, BMI Height: 6'0.00" Weight: 266lbs. 0.2oz. 120.005182vg; 35.5 BMI Method:Stated Focused Exam Lactate Level 06/23/18 09:50: Lactic Acid Level 3.08*H 06/23/18 13:11: Lactic Acid Level 1.68 06/24/18 03:44: Lactic Acid Level 1.04 Exam Exam Vital Signs Date Time Temp Pulse Resp B/P (MAP) Pulse Ox O2 Delivery O2 Flow Rate FiO2 06/25/18 07:35 100 Vapotherm 20.00 35 06/25/18 07:02 70 18 100 30.00 06/25/18 06:00 97.8 06/25/18 06:00 66 22 154/84 (107) 100 NIV Bilevel 30.00 06/25/18 05:00 66 22 151/84 (106) 100 NIV Bilevel 30.00 06/25/18 04:00 NIV Bilevel 06/25/18 04:00 68 22 169/101 (123) 98 NIV Bilevel 30.00 06/25/18 04:00 98.6 06/25/18 03:00 68 31 152/91 (111) 96 NIV Bilevel 30.00 06/25/18 02:43 97.6 06/25/18 02:15 97.7 06/25/18 02:00 66 18 100/65 (77) 100 NIV Bilevel 30.00 06/25/18 01:10 97.0 06/25/18 01:00 68 15 120/68 (85) 100 NIV Bilevel 30.00 06/25/18 01:00 68 06/25/18 00:53 69 21 100 30.00 06/25/18 00:00 98.3 06/25/18 00:00 69 24 146/83 (104) 100 NIV Bilevel 30.00 06/25/18 00:00 NIV Bilevel 06/24/18 23:05 100.4 06/24/18 23:00 74 24 159/83 (108) 100 NIV Bilevel 30.00 06/24/18 22:33 101.3 06/24/18 22:00 80 25 178/107 (130) 100 NIV Bilevel 30.00 06/24/18 22:00 100.1 06/24/18 21:40 78 24 100 30.00 06/24/18 21:15 99.4 06/24/18 21:00 99.1 06/24/18 21:00 77 16 169/111 (130) 100 NIV Bilevel 30.00 06/24/18 20:13 99.5 06/24/18 20:00 NIV Bilevel 06/24/18 20:00 99.8 72 25 150/85 (106) 97 NIV Bilevel 30.00 06/24/18 19:27 NIV Bilevel 30.00 06/24/18 19:04 72 21 100 30.00 06/24/18 19:00 76 20 137/76 (96) 100 Vapotherm 35.00 20.00 06/24/18 19:00 76 06/24/18 18:17 99.9 06/24/18 16:00 94 Vapotherm 20.00 35 06/24/18 16:00 101.1 Vapotherm 35.00 20.00 06/24/18 15:00 86 25 125/64 (84) 97 Vapotherm 40.00 20.00 06/24/18 14:45 102.4 06/24/18 14:15 Vapotherm 20.00 35 06/24/18 14:00 83 48 154/110 (125) 100 Vapotherm 40.00 20.00 06/24/18 13:00 74 06/24/18 13:00 74 22 167/90 (115) 100 Vapotherm 40.00 20.00 06/24/18 12:00 75 50 160/97 (118) 100 Vapotherm 40.00 20.00 06/24/18 12:00 94 Vapotherm 20.00 35 06/24/18 11:00 76 21 158/86 (110) 100 Vapotherm 40.00 20.00 06/24/18 10:00 73 43 144/90 (108) 100 Vapotherm 40.00 20.00 06/24/18 09:15 99.4 06/24/18 09:00 75 21 135/83 (100) 99 Vapotherm 40.00 20.00 06/24/18 08:20 94 NIV Bilevel I & O 06/25/18 07:00 Intake Total 3352.7 ml Output Total 4925 ml Balance -1572.3 ml Height & Weight Height: 6'0.00" Weight: 266lbs. 0.2oz. 120.838216cp; 35.5 BMI Method:Stated General Appearance: No Apparent Distress, WD/WN HEENT: PERRL/EOMI, Normal ENT Inspection, Pharynx Normal Neck: Full Range of Motion, Normal Inspection, Non Tender Respiratory: Chest Non Tender, Lungs Clear, Normal Breath Sounds, No Accessory Muscle Use, No Respiratory Distress Cardiovascular: No Edema, No Gallop Capillary Refill: Less Than 3 Seconds Gastrointestinal: normal bowel sounds, non tender, soft Extremity: Normal Capillary Refill, Normal Inspection Neurologic/Psychiatric: Alert, Oriented x3 Skin: Normal Color, Warm/Dry Results Lab Laboratory Tests 06/23/18 09:50 06/24/18 03:44 06/25/18 04:22 Assessment/Plan Assessment/Plan Acute respiratory distress with hypoxia and CP doubt PE V/Q is negative -Stat bilateral dopplers- negative Severe Sepsis secondary to LLE cellulitis and possible PNA tm 102.5 -[place] Abx to Zosyn, and Vanco -Demarco cultures Pulmonary edema -Lasix -Hep lock IVF NIKHIL - resolved -IVF Elevated troponin -Cardiology pending Obesity with probable NATE -Will start BIPAP PRN and QHS ILIA VELASQUEZ DO Jun 25, 2018 08:13
[2018-06-25] MEDS: FUROSEMIDE 40 MG/4 ML INJ (LASIX) IVP SCH (09:06)
--- NOTE | 2018-06-25 09:06 | Progress Note (SOAP) ---
Subjective Subjective/Events-last exam Patient is currently on BiPAP and in the ICU. He is communicating fairly well according to his who is a nurse at this hospital. She informs me that his redness to the left lower extremity is better. Review of Systems Date Seen by Provider: Jun 25, 2018 Time Seen by Provider: 06:20 Focused Exam Lactate Level 06/23/18 09:50: Lactic Acid Level 3.08*H 06/23/18 13:11: Lactic Acid Level 1.68 06/24/18 03:44: Lactic Acid Level 1.04 Objective Exam Last Set of Vital Signs Vital Signs Date Time Temp Pulse Resp B/P (MAP) Pulse Ox O2 Delivery O2 Flow Rate FiO2 06/25/18 08:30 Nasal Cannula 4.00 06/25/18 07:45 30 06/25/18 07:45 98.6 06/25/18 07:35 100 06/25/18 07:02 70 18 06/25/18 06:00 154/84 (107) Capillary Refill : Less Than 3 Seconds I&O Intake and Output 06/25/18 00:00 Intake Total 4917.9 ml Output Total 4960 ml Balance -42.1 ml Intake Oral 1170 ml IV Total 3747.9 ml Output Urine Total 4960 ml General: No Acute Distress Lungs: Clear to Auscultation (with few crackles in base) Heart: Regular Rate Abdomen: Soft Skin: Other (erythema noted mild to the left lower extremity. Markings noted) Results/Procedures Lab Laboratory Tests 06/24/18 09:15: Urine Color YELLOW, Urine Clarity CLEAR, Urine pH 6, Urine Specific [place] 1.020, Urine Protein 2+H, Urine Glucose (UA) NEGATIVE, Urine Ketones 1+H, Urine Nitrite NEGATIVE, Urine Bilirubin NEGATIVE, Urine Urobilinogen 1, Urine Leukocyte Esterase 3+H, Urine RBC (Auto) 4+H, Urine RBC 50-100H, Urine WBC 10- 25H, Urine Squamous Epithelial Cells NONE, Urine Crystals NONE, Urine Bacteria NEGATIVE, Urine Casts NONE, Urine Mucus NEGATIVE, Urine Culture Indicated YES 06/24/18 11:07: Glucometer 97 06/24/18 15:51: Glucometer 174H 06/24/18 20:22: Glucometer 114H 06/25/18 04:22: White Blood Count 7.7, Red Blood Count 4.38, Hemoglobin 12.5L, Hematocrit 39L, Mean Corpuscular Volume 89, Mean Corpuscular Hemoglobin 29, Mean Corpuscular Hemoglobin Concent 32, Red Cell Distribution Width 14.6H, Platelet Count 140, Mean Platelet Volume 9.2, Neutrophils (%) (Auto) 79H, Lymphocytes (%) (Auto) 13 , Monocytes (%) (Auto) 7, Eosinophils (%) (Auto) 1, Basophils (%) (Auto) 0, Neutrophils # (Auto) 6.1, Lymphocytes # (Auto) 1.0, Monocytes # (Auto) 0.5, Eosinophils # (Auto) 0.0, Basophils # (Auto) 0.0, Sodium Level 136, Potassium Level 3.7, Chloride Level 104, Carbon Dioxide Level 21, Anion Gap 11, Blood Urea Nitrogen 14, Creatinine 1.27, Estimat Glomerular Filtration Rate 57, BUN/ Creatinine Ratio 11, Glucose Level 115H, Calcium Level 8.6, Phosphorus Level 2.1L, Magnesium Level 2.2 Microbiology 06/23/18 Blood Culture - Preliminary, Resulted Staph, Coag Neg ([employer]) See Comments 06/23/18 MRSA Screen - Final, Complete MRSA not isolated Radiology Date of Exam: 06/23/18 CHEST 1 VIEW, AP/PA ONLY INDICATION: Fever and cough. TIME OF EXAM: 10:16 a.m. Correlation is made with prior study from 01/06/2018. The heart size is stable. Visualized lung swan appear to be fairly clear. There is some increased density to the left base. Some infiltrate at this location cannot be excluded. The pulmonary vascularity is normal. No effusion or pneumothorax is identified. IMPRESSION: Questionable infiltrate or atelectasis in the left base. The study is otherwise unremarkable. Date of Exam: 06/23/18 US VENOUS LOWER EXT SARAHI PROCEDURE: US Venous Lower Ext Sarahi. TECHNIQUE: Multiple real-time grayscale images were obtained over the lower extremities in various projections, bilaterally. Additional duplex Doppler and color Doppler images were also obtained. INDICATION: Lower extremity redness and swelling. FINDINGS: There is no evidence of right or left lower extremity DVT. Both lower extremity deep venous systems demonstrate normal compressibility with normal response to augmentation and Valsalva. No fluid collection or mass is seen. IMPRESSION: No evidence of right or left lower extremity DVT. Date of Exam: 06/23/18 US SARAHI LOWER EXT [id number] PROCEDURE: US Bilateral lower extremity arterial. TECHNIQUE: Multiple real-time grayscale images are obtained through both lower extremity arterial systems with color Doppler imaging and color Doppler spectral analysis. INDICATION: Wound on the right toe as well as bilateral lower extremity edema. FINDINGS: Predominantly triphasic waveforms are identified throughout both common femoral as well as superficial femoral and popliteal arteries. Velocities are fairly symmetric. No high-grade stenosis or occlusion is seen. There are triphasic waveforms in the right posterior tibial artery at the ankle with monophasic flow in the dorsalis pedis which appears to be reversed. There is monophasic flow in the left posterior tibial artery. No fluid collections are seen. IMPRESSION: Fairly unremarkable bilateral lower extremity arterial Doppler apart from reversal of flow in the right dorsalis pedis. No definite occlusion is identified. Date of Exam: 06/23/18 LUNG SCAN PERFUSION INDICATION: Shortness of breath. EXAMINATION: 5.5 mCi tech 99m MAA was given IV for perfusion. Ventilation study could not be performed due to patient on high O2. FINDINGS: Perfusion study shows uniform distribution without evidence of segmental or subsegmental defect. IMPRESSION: No evidence of pulmonary embolus. These findings are considered low probability for PE. Assessment/Plan Assessment/Plan Admission Dx 1. Respiratory Distress with hypoxia 2. Severe sepsis likely secondary to LLE cellulitis vs pneumonia with leukocytosis, lactic acidosis and fever; BP normal 3. NIKHIL 4. Elevated troponin; hx CAD s/p balloon angioplasty 5. R leg cellulitis 6. DM Type 2 with other specified complications of hypertension and hyperlipidemia 7. Obesity with probable NATE 8. Hx of alcohol use Admission Status: Inpatient Order (span 2 midnights) Reason for Inpatient Admission: IV antibiotics. Pulmonary care. Assessment & Plan 1. Respiratory Distress with hypoxia - Admitted to ICU; Dr. Suarez consulted for critical care management - Evaluation for PE negative (venous dopplers and VQ scan negative) - treated with Lovenox 06/25 -patient currently on BiPAP 2. Severe sepsis likely secondary to LLE cellulitis vs pneumonia with leukocytosis, lactic acidosis and fever; BP normal - started on Zosyn, Vanco - carrera cultures pending 06/25 -day number 2 of vancomycin and Zosyn 3. NIKHIL - Cr on admission 1.69 --> 1.63 GFR 43 - IVF 06/25 -creatinine has improved 4. Elevated troponin; hx CAD s/p balloon angioplasty -likely secondary to hypoxia; Dr. Cr consulted - on ASA, beta estrellita; Dr. Cr has added diuretic 5. R leg cellulitis - on Zosyn and Vanco 06/25 -t appears the erythema is less to the L lower extremity 6. DM Type 2 with other specified complications of hypertension and hyperlipidemia - BS stable since admission - on SSI 7. Obesity with probable NATE - will need sleep study as OP - Bipap prn and hs 8. Hx of alcohol use - was put on CIWA Withdrawal protocol but was oversedated due to counting symptoms associated with fever as withdrawal - will give Ativan 1-2mg q4h as needed; Dr. Suarez has started Precedex gtt Clinical Quality Measures DVT/VTE Risk/Contraindication: Risk Factor Score Per Nursin RFS Level Per Nursing on Admit: 4+=Very High JAVI YO MD Jun 25, 2018 09:06
[2018-06-25] MEDS: THIAMINE INJECTION 100 MG, FOLIC ACID INJECTION 1 MG, MAGNESIUM SULFATE 2 GM, VITAMIN M... IV SCH ×5 (09:07)
[2018-06-25] MEDS: meTOprolol TARTRATE 50 MG (LOPRESSOR) TAB PO SCH ×2 (09:07→20:30)
[2018-06-25] MEDS: MULTIVIT W/MINERALS TAB (THERAGRAN M) PO SCH (10:36)
--- NOTE | 2018-06-25 12:25 | Cardiology Progress Note ---
Subjective Date Seen by Provider: Jun 25, 2018 Time Seen by Provider: 12:22 Subjective/Events-last exam Patient is laying down in bed, feeling better. Denied any chest pain. Breathing better. Review of Systems General: No Chills, No Night Sweats; Fatigue; No Malaise, No Appetite, No Other HEENT: No Head Aches, No Visual Changes, No Eye Pain, No Ear Pain, No Dysphasia , No Sinus Congestion, No Post Nasal Drip, No Sore Throat, No Other Pulmonary: Dyspnea, Cough; No Pleuritic Chest Pain, No Other Cardiovascular: Edema; No: Chest Pain, Palpitations, Orthopnea, Paroxysmal Noc. Dyspnea, Lt Headedness, Other Focused Exam Lactate Level 06/23/18 09:50: Lactic Acid Level 3.08*H 06/23/18 13:11: Lactic Acid Level 1.68 06/24/18 03:44: Lactic Acid Level 1.04 Objective-Cardiology Exam Last Set of Vital Signs Vital Signs 06/25/18 06/25/18 06/25/18 06/25/18 06:00 07:02 10:10 11:50 Temp 97.1 Pulse 70 Resp 18 B/P (MAP) 154/84 (107) Pulse Ox 100 O2 Delivery Nasal Cannula O2 Flow Rate 2.00 Capillary Refill : Less Than 3 Seconds I&O Intake and Output 06/25/18 00:00 Intake Total 4917.9 ml Output Total 4960 ml Balance -42.1 ml Intake Oral 1170 ml IV Total 3747.9 ml Output Urine Total 4960 ml General: Alert, Oriented X3, Cooperative, No Acute Distress HEENT: Atraumatic, PERRLA Neck: Supple, No JVD Lungs: Clear to Auscultation (with few crackles in base) Heart: Regular Rate, Normal S1, Normal S2 Abdomen: Normal Bowel Sounds, Soft Extremities: No Clubbing, No Cyanosis Skin: Other (erythema noted mild to the left lower extremity. Markings noted) Neuro: Normal Speech Psych/Mental Status: Mental Status NL, Mood NL Results Lab Laboratory Tests 06/25/18 04:22 A/P-Cardiology Admission Diagnosis Acute respiratory failure Pneumonia Congestive heart failure Hypertension Hyperlipidemia Assessment/Plan Status post acute respiratory failure, multifactorial, better at this time, patient is laying down in bed with oxygen nasal cannula and feeling better. Managed by primary care team. Continue to monitor Questionable sepsis, receiving antibiotics. Feeling better at this time. Acute diastolic CHF, improving, continue to monitor Acute renal insufficiency of undetermined etiology, monitor renal function Mild troponin elevation, likely due to hypoxia during shortness of breath on CAD - Cardiac cath of 09-18-2014 that showed 80% mid vessel bifurcation stenosis in the LAD to which balloon angioplasty was undertaken, with reduction of stenosis to approximately 50%. The rest of the arteries have moderate disease, including 50% stenoses in the proximal RCA, has been followed and managed by Dr. Cr. Currently not having any active pain. Continue to monitor DM II with h/o diabetic nephropathy and CKD 2 Hypertension with LVH on surface ECG, continue to monitor blood pressure Obesity with BMI approx 36 Hyperlipidemia, difficult control despite combination therapy with atorvastatin and fenofibric acid Echo on 06/23/18: LVEF 55-60%, Mild AI, PASP 35 mmHg, normal right heart size Small ASD is reported on an echo of 08/14/14. WEI of 09-13-2014 is suggestive of a small PFO with a small amount of left to right shunt. LVEF 50%. Trivial to mild TR Cardiac cath of 09-18-2014 showed no evidence of intracardiac shunt. LVEF 60%. 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
[2018-06-25] MEDS ORDERED: TROUGH ORDER-PHARMACY XX NR (13:00)
[2018-06-25] MEDS: VANCOMYCIN INJECTION 1,750 MG in NS IV 500 ML 500 ML IV SCH (14:18)
[2018-06-25] MEDS: traZODone 50 MG (DESYREL) TAB PO SCH (20:30)
[2018-06-26] VITALS (14 sets, daily range): BP systolic 127–183; BP diastolic 67–94
[2018-06-26] MEDS: RT-ALBUTEROL SULF 2.5 MG/3 ML PRE-MIX VIAL INH PRN ×3 (01:14→14:47)
[2018-06-26] MEDS: ENOXAPARIN 300 MG/3 ML (LOVENOX) MULTI-DOSE VIAL SQ SCH ×2 (03:11→14:35)
[2018-06-26] MEDS: VANCOMYCIN INJECTION 1,750 MG in NS IV 500 ML 500 ML IV SCH ×2 (03:12→14:35)
[2018-06-26 03:32] LABS: BASOPHILS % (AUTO) 0 % (0-10); EOSINOPHILS # (AUTO) 0.1 10^3/uL (0.0-0.3); EOSINOPHILS % (AUTO) 1 % (0-10); HEMATOCRIT 36 % (40-54); LYMPHOCYTES % (AUTO) 15 % (12-44); MEAN CORPUSCULAR HEMOGLOBIN 29 PG (25-34); MEAN CORPUSCULAR HGB CONC 34 G/DL (32-36); MEAN CORPUSCULAR VOLUME 88 FL (80-99); MEAN PLATELET VOLUME 9.2 FL (7.4-10.4); MONOCYTES # (AUTO) 0.5 X 10^3 (0.0-1.0); MONOCYTES % (AUTO) 8 % (0-12); NEUTROPHILS # (AUTO) 4.9 X 10^3 (1.8-7.8); NEUTROPHILS % (AUTO) 76 % (42-75); PLATELET COUNT 164 10^3/uL (130-400); RED BLOOD COUNT 4.08 10^6/uL (4.35-5.85); RED CELL DISTRIBUTION WIDTH 14.5 % (10.0-14.5); WHITE BLOOD COUNT 6.4 10^3/uL (4.3-11.0)
[2018-06-26 03:47] LABS: BUN/CREATININE RATIO 11; CALCIUM 8.8 MG/DL (8.5-10.1); CARBON DIOXIDE 20 MMOL/L (21-32); CHLORIDE 103 MMOL/L (98-107); CREATININE SERUM 1.16 MG/DL (0.60-1.30); GFR ESTIMATED > 60; GLUCOSE 115 MG/DL (70-105); MAGNESIUM 1.9 MG/DL (1.8-2.4); PHOSPHORUS 2.6 MG/DL (2.3-4.7); POTASSIUM 3.5 MMOL/L (3.6-5.0); SODIUM 135 MMOL/L (135-145)
[2018-06-26] MEDS: PIPERACILLIN SODIUM/TAZOBACTAM 4.5 GM in NS (IVPB) 100 ML IV SCH ×3 (04:12→21:51)
[2018-06-26] MEDS: inSUlin ASPART (NovoLOG) 1 UNIT/0.01 ML (CHARGE PER UNIT) SQ SCH ×4 (05:19→21:52)
[2018-06-26] MEDS ORDERED: KCL 8 MEQ (MICRO K) TABLET PO ONE (05:45)
--- NOTE | 2018-06-26 05:46 | Pulmonary Progress Note ---
Subjective Time Seen by a Provider: 05:53 Subjective/Events-last exam No complications noted. Sepsis Event Evaluation Height, Weight, BMI Height: 6'0.00" Weight: 266lbs. 0.2oz. 120.882398cl; 35.5 BMI Method:Stated Focused Exam Lactate Level 06/23/18 09:50: Lactic Acid Level 3.08*H 06/23/18 13:11: Lactic Acid Level 1.68 06/24/18 03:44: Lactic Acid Level 1.04 Exam Exam Vital Signs Date Time Temp Pulse Resp B/P (MAP) Pulse Ox O2 Delivery O2 Flow Rate FiO2 06/26/18 05:00 74 24 183/90 (121) 98 Nasal Cannula 3.00 06/26/18 04:00 97.5 06/26/18 04:00 77 22 177/89 (118) 98 Nasal Cannula 3.00 06/26/18 04:00 Nasal Cannula 3.00 06/26/18 03:00 76 19 169/80 (109) 91 Nasal Cannula 3.00 06/26/18 02:00 80 19 160/87 (111) 97 Nasal Cannula 3.00 06/26/18 01:14 96 Nasal Cannula 3.00 06/26/18 01:00 80 06/26/18 01:00 80 24 141/74 (96) 93 Nasal Cannula 3.00 06/26/18 00:00 73 18 161/82 (108) 96 Nasal Cannula 3.00 06/26/18 00:00 Nasal Cannula 3.00 06/25/18 23:57 98.2 06/25/18 23:00 77 22 157/92 (113) 100 Nasal Cannula 3.00 06/25/18 22:00 82 14 162/75 (104) 100 Nasal Cannula 3.00 06/25/18 21:36 95 Nasal Cannula 3.00 06/25/18 21:00 87 25 169/77 (107) 100 Nasal Cannula 3.00 06/25/18 20:00 88 14 173/88 (116) 100 Nasal Cannula 3.00 06/25/18 20:00 Nasal Cannula 3.00 06/25/18 19:54 99.6 06/25/18 19:39 99 Nasal Cannula 3.00 06/25/18 19:00 82 26 160/83 (108) 98 Nasal Cannula 3.00 06/25/18 19:00 90 06/25/18 18:00 85 20 149/82 (104) 96 Nasal Cannula 3.00 06/25/18 17:00 78 12 165/86 (112) 99 Nasal Cannula 3.00 06/25/18 16:32 99.2 Nasal Cannula 3.00 06/25/18 16:30 Nasal Cannula 3.00 06/25/18 16:00 73 19 158/93 (114) 93 Nasal Cannula 3.00 06/25/18 15:28 92 Nasal Cannula 3.00 06/25/18 15:27 88 Nasal Cannula 2.00 06/25/18 15:00 79 17 167/82 (110) 95 Nasal Cannula 2.00 06/25/18 14:14 95 Nasal Cannula 2.00 06/25/18 14:00 79 17 155/77 (103) 95 Nasal Cannula 2.00 06/25/18 13:00 75 38 149/79 (102) 100 Nasal Cannula 2.00 06/25/18 13:00 76 06/25/18 12:00 69 22 155/84 (107) 100 Nasal Cannula 2.00 06/25/18 11:50 Nasal Cannula 2.00 06/25/18 11:50 97.1 Nasal Cannula 2.00 06/25/18 11:00 74 8 152/74 (100) 100 Nasal Cannula 2.00 06/25/18 10:14 Nasal Cannula 2.00 06/25/18 10:10 100 Nasal Cannula 3.00 06/25/18 10:00 79 23 147/79 (101) 99 Nasal Cannula 4.00 06/25/18 09:00 79 23 99 Nasal Cannula 4.00 06/25/18 08:30 100 Nasal Cannula 4.00 06/25/18 08:30 Nasal Cannula 4.00 06/25/18 08:00 74 36 139/78 (98) 100 Vapotherm 30.00 15.00 06/25/18 07:45 Vapotherm 15.00 30 06/25/18 07:45 98.6 Vapotherm 30.00 15.00 06/25/18 07:35 100 Vapotherm 20.00 35 06/25/18 07:02 70 18 100 30.00 06/25/18 07:00 71 36 154/84 (107) 100 NIV Bilevel 30.00 06/25/18 07:00 76 06/25/18 06:00 97.8 06/25/18 06:00 66 22 154/84 (107) 100 NIV Bilevel 30.00 I & O 06/26/18 07:00 Intake Total 3977.5 ml Output Total 3250 ml Balance 727.5 ml Height & Weight Height: 6'0.00" Weight: 266lbs. 0.2oz. 120.505799vp; 35.5 BMI Method:Stated General Appearance: No Apparent Distress, WD/WN HEENT: PERRL/EOMI, Normal ENT Inspection, Pharynx Normal Neck: Full Range of Motion, Normal Inspection, Non Tender Respiratory: Chest Non Tender, Lungs Clear, Normal Breath Sounds, No Accessory Muscle Use, No Respiratory Distress Cardiovascular: No Edema, No Gallop Capillary Refill: Less Than 3 Seconds Gastrointestinal: normal bowel sounds, non tender, soft Extremity: Normal Capillary Refill, Normal Inspection Neurologic/Psychiatric: Alert, Oriented x3 Skin: Normal Color, Warm/Dry Results Lab Laboratory Tests 06/25/18 04:22 06/26/18 03:20 Assessment/Plan Assessment/Plan Acute respiratory distress with hypoxia and CP doubt PE V/Q is negative -Stat bilateral dopplers- negative Severe Sepsis secondary to LLE cellulitis -[place] Abx to Zosyn, and Vanco -Demarco cultures Pulmonary edema -Lasix -Hep lock IVF NIKHIL - resolved -IVF Elevated troponin -Cardiology pending Obesity with probable NATE -Will start BIPAP PRN and QHS Will transfer pt to 4th floor. ILIA VELASQUEZ DO Jun 26, 2018 05:46
[2018-06-26] MEDS ORDERED: POTASSIUM CL 10MEQ/50ML IVPB 50 ML IV SCH (06:00)
[2018-06-26] MEDS ORDERED: KCL 20 MEQ TAB (K-DUR) PO SCH (06:00)
[2018-06-26] MEDS ORDERED: MAGNESIUM 1 GM/100 ML IVPB 100 ML IV SCH (06:00)
[2018-06-26] MEDS: hydrALAZINE (APESOLINE) 20 MG/ML VIAL IV SCH (06:22)
[2018-06-26] MEDS: MULTIVIT W/MINERALS TAB (THERAGRAN M) PO SCH (06:22)
[2018-06-26] MEDS ORDERED: KCL 20 MEQ TAB (K-DUR) PO ONE (06:30)
[2018-06-26] MEDS: metFORMIN XR 500 MG (GLUCOPHAGE XR) TAB PO SCH ×2 (06:40→17:13)
[2018-06-26] MEDS: meTOprolol TARTRATE 50 MG (LOPRESSOR) TAB PO SCH ×2 (07:45→21:51)
[2018-06-26] MEDS: FUROSEMIDE 40 MG/4 ML INJ (LASIX) IVP SCH (07:45)
[2018-06-26] MEDS: CYANOCOBALAMIN 1,000 MCG (VITAMIN B-12) TABLET PO SCH (07:45)
[2018-06-26] MEDS: ARIPIPRAZOLE 2 MG (ABILIFY) TAB PO SCH (07:45)
[2018-06-26] MEDS: OMEGA 3 (FISH OIL) 1000 MG CAP PO SCH ×2 (07:46→21:51)
--- NOTE | 2018-06-26 08:21 | Diagnostic Imaging Report ---
INDICATION: Shortness of breath. COMPARISON: 06/25/18. FINDINGS: Single view of the chest demonstrates mild cardiac enlargement without pulmonary edema. No pneumothorax is seen. Osseous structures are age-appropriate. IMPRESSION: Stable cardiac enlargement without pulmonary edema or infiltrate. Dictated by: Dictated on workstation # [id number]
--- NOTE | 2018-06-26 08:46 | Cardiology Progress Note ---
Subjective Date Seen by Provider: Jun 26, 2018 Time Seen by Provider: 08:41 Subjective/Events-last exam Patient is sitting in a chair, feeling better, no chest pain or shortness of breath, still having elevated blood pressure Review of Systems General: No Chills, No Night Sweats, No Fatigue, No Malaise, No Appetite, No Other HEENT: No Head Aches, No Visual Changes, No Eye Pain, No Ear Pain, No Dysphasia , No Sinus Congestion, No Post Nasal Drip, No Sore Throat, No Other Pulmonary: No Dyspnea, No Cough, No Pleuritic Chest Pain, No Other Cardiovascular: No: Chest Pain, Palpitations, Orthopnea, Paroxysmal Noc. Dyspnea, Edema, Lt Headedness, Other Focused Exam Lactate Level 06/23/18 09:50: Lactic Acid Level 3.08*H 06/23/18 13:11: Lactic Acid Level 1.68 06/24/18 03:44: Lactic Acid Level 1.04 Objective-Cardiology Exam Last Set of Vital Signs Vital Signs 06/25/18 06/26/18 07:45 08:00 Pulse 84 Resp 20 B/P (MAP) 162/76 (104) Pulse Ox 96 O2 Delivery Nasal Cannula O2 Flow Rate 3.00 FiO2 30 Capillary Refill : Less Than 3 Seconds I&O Intake and Output 06/26/18 00:00 Intake Total 3577.5 ml Output Total 3820 ml Balance -242.5 ml Intake Oral 1600 ml IV Total 1977.5 ml Output Urine Total 3820 ml # Voids 1 # Bowel Movements 3 General: Alert, Oriented X3, Cooperative, No Acute Distress HEENT: Atraumatic, PERRLA Neck: Supple, No JVD Lungs: Clear to Auscultation (with few crackles in base) Heart: Regular Rate, Normal S1, Normal S2 Abdomen: Normal Bowel Sounds, Soft Extremities: No Clubbing, No Cyanosis Skin: Other (erythema noted mild to the left lower extremity. Markings noted) Neuro: Normal Speech Psych/Mental Status: Mental Status NL, Mood NL Results Lab Laboratory Tests 06/26/18 03:20 A/P-Cardiology Admission Diagnosis Acute respiratory failure Pneumonia Congestive heart failure Hypertension Hyperlipidemia Assessment/Plan Status post acute respiratory failure, multifactorial, better at this time, patient is laying down in bed with oxygen nasal cannula and feeling better. Managed by primary care team. Continue to monitor Questionable sepsis, receiving antibiotics. Feeling better at this time. Acute diastolic CHF, improving, continue to monitor Acute renal insufficiency of undetermined etiology, better at this time, continue to monitor blood pressure Mild troponin elevation, likely due to hypoxia during shortness of breath on CAD - Cardiac cath of 09-18-2014 that showed 80% mid vessel bifurcation stenosis in the LAD to which balloon angioplasty was undertaken, with reduction of stenosis to approximately 50%. The rest of the arteries have moderate disease, including 50% stenoses in the proximal RCA, has been followed and managed by Dr. Cr. Currently not having any active pain. Continue to monitor DM II with h/o diabetic nephropathy and CKD 2 Hypertension with LVH on surface ECG, I will add Losartan and stop Hydralazine and monitor blood pressure Obesity with BMI approx 36 Hyperlipidemia, difficult control despite combination therapy with atorvastatin and fenofibric acid Echo on 06/23/18: LVEF 55-60%, Mild AI, PASP 35 mmHg, normal right heart size Small ASD is reported on an echo of 08/14/14. WEI of 09-13-2014 is suggestive of a small PFO with a small amount of left to right shunt. LVEF 50%. Trivial to mild TR Cardiac cath of 09-18-2014 showed no evidence of intracardiac shunt. LVEF 60%. 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
[2018-06-26] MEDS ORDERED: LOSARTAN 50 MG (COZAAR) TAB PO SCH (09:00)
--- NOTE | 2018-06-26 09:11 | Progress Note (SOAP) ---
Subjective Subjective/Events-last exam Patient is now sitting in chair. The BiPAP is off. He is on nasal cannula 3 L oxygen. His chest x-ray from yesterday revealed improvement in aeration Review of Systems Date Seen by Provider: Jun 26, 2018 Time Seen by Provider: 06:55 Focused Exam Lactate Level 06/23/18 09:50: Lactic Acid Level 3.08*H 06/23/18 13:11: Lactic Acid Level 1.68 06/24/18 03:44: Lactic Acid Level 1.04 Objective Exam Last Set of Vital Signs Vital Signs Date Time Temp Pulse Resp B/P (MAP) Pulse Ox O2 Delivery O2 Flow Rate FiO2 06/26/18 08:00 97 Nasal Cannula 2.00 06/26/18 08:00 84 20 162/76 (104) 06/26/18 04:00 97.5 06/25/18 07:45 30 Capillary Refill : Less Than 3 Seconds I&O Intake and Output 06/26/18 00:00 Intake Total 3577.5 ml Output Total 3820 ml Balance -242.5 ml Intake Oral 1600 ml IV Total 1977.5 ml Output Urine Total 3820 ml # Voids 1 # Bowel Movements 3 General: No Acute Distress Neck: Supple Lungs: Clear to Auscultation (With few crackles in bases) Heart: Regular Rate Abdomen: Soft Extremities: Other (Edema at the lower extremities has improved) Skin: Other (Erythema has lightened at the left lower extremity and is within the borders of marking) Neuro: Normal Speech Psych/Mental Status: Mental Status NL Results/Procedures Lab Laboratory Tests 06/25/18 11:13: Glucometer 149H 06/25/18 13:10: Vancomycin Level Trough 6.7L 06/25/18 16:30: Glucometer 127H 06/25/18 20:36: Glucometer 110 06/26/18 03:20: White Blood Count 6.4, Red Blood Count 4.08L, Hemoglobin 12.0L, Hematocrit 36L, Mean Corpuscular Volume 88, Mean Corpuscular Hemoglobin 29, Mean Corpuscular Hemoglobin Concent 34, Red Cell Distribution Width 14.5, Platelet Count 164, Mean Platelet Volume 9.2, Neutrophils (%) (Auto) 76H, Lymphocytes (%) (Auto) 15 , Monocytes (%) (Auto) 8, Eosinophils (%) (Auto) 1, Basophils (%) (Auto) 0, Neutrophils # (Auto) 4.9, Lymphocytes # (Auto) 1.0, Monocytes # (Auto) 0.5, Eosinophils # (Auto) 0.1, Basophils # (Auto) 0.0, Sodium Level 135, Potassium Level 3.5L, Chloride Level 103, Carbon Dioxide Level 20L, Anion Gap 12, Blood Urea Nitrogen 13, Creatinine 1.16, Estimat Glomerular Filtration Rate > 60, BUN/ Creatinine Ratio 11, Glucose Level 115H, Calcium Level 8.8, Phosphorus Level 2.6 , Magnesium Level 1.9 Microbiology 06/23/18 Blood Culture - Preliminary, Resulted No growth 06/23/18 MRSA Screen - Final, Complete MRSA not isolated Radiology Date of Exam: 06/23/18 CHEST 1 VIEW, AP/PA ONLY INDICATION: Fever and cough. TIME OF EXAM: 10:16 a.m. Correlation is made with prior study from 01/06/2018. The heart size is stable. Visualized lung swan appear to be fairly clear. There is some increased density to the left base. Some infiltrate at this location cannot be excluded. The pulmonary vascularity is normal. No effusion or pneumothorax is identified. IMPRESSION: Questionable infiltrate or atelectasis in the left base. The study is otherwise unremarkable. Date of Exam: 06/23/18 US VENOUS LOWER EXT SARAHI PROCEDURE: US Venous Lower Ext Sarahi. TECHNIQUE: Multiple real-time grayscale images were obtained over the lower extremities in various projections, bilaterally. Additional duplex Doppler and color Doppler images were also obtained. INDICATION: Lower extremity redness and swelling. FINDINGS: There is no evidence of right or left lower extremity DVT. Both lower extremity deep venous systems demonstrate normal compressibility with normal response to augmentation and Valsalva. No fluid collection or mass is seen. IMPRESSION: No evidence of right or left lower extremity DVT. Date of Exam: 06/23/18 US SARAHI LOWER EXT [id number] PROCEDURE: US Bilateral lower extremity arterial. TECHNIQUE: Multiple real-time grayscale images are obtained through both lower extremity arterial systems with color Doppler imaging and color Doppler spectral analysis. INDICATION: Wound on the right toe as well as bilateral lower extremity edema. FINDINGS: Predominantly triphasic waveforms are identified throughout both common femoral as well as superficial femoral and popliteal arteries. Velocities are fairly symmetric. No high-grade stenosis or occlusion is seen. There are triphasic waveforms in the right posterior tibial artery at the ankle with monophasic flow in the dorsalis pedis which appears to be reversed. There is monophasic flow in the left posterior tibial artery. No fluid collections are seen. IMPRESSION: Fairly unremarkable bilateral lower extremity arterial Doppler apart from reversal of flow in the right dorsalis pedis. No definite occlusion is identified. Date of Exam: 06/23/18 LUNG SCAN PERFUSION INDICATION: Shortness of breath. EXAMINATION: 5.5 mCi tech 99m MAA was given IV for perfusion. Ventilation study could not be performed due to patient on high O2. FINDINGS: Perfusion study shows uniform distribution without evidence of segmental or subsegmental defect. IMPRESSION: No evidence of pulmonary embolus. These findings are considered low probability for PE. Assessment/Plan Assessment/Plan Assessment & Plan 1. Respiratory Distress with hypoxia - Admitted to ICU; Dr. Suarez consulted for critical care management - Evaluation for PE negative (venous dopplers and VQ scan negative) - treated with Lovenox 06/25 -patient currently on BiPAP 06/26 -Patient is now on 3 L nasal cannula and appears to be resting comfortably -He is being transferred to [facility] 2. Severe sepsis likely secondary to LLE cellulitis vs pneumonia with leukocytosis, lactic acidosis and fever; BP normal - started on Zosyn, Vanco - carrera cultures pending 06/25 -day number 2 of vancomycin and Zosyn 12/2 -Day number 3 of vancomycin and Zosyn 3. NIKHIL - Cr on admission 1.69 --> 1.63 GFR 43 - IVF 06/25 -creatinine has improved 4. Elevated troponin; hx CAD s/p balloon angioplasty -likely secondary to hypoxia; Dr. Cr consulted - on ASA, beta estrellita; Dr. Cr has added diuretic 5. R leg cellulitis - on Zosyn and Vanco 06/25 -t appears the erythema is less to the L lower extremity 06/26 -Improvement noted 6. DM Type 2 with other specified complications of hypertension and hyperlipidemia - BS stable since admission - on SSI 7. Obesity with probable NATE - will need sleep study as OP - Bipap prn and hs 8. Hx of alcohol use - was put on CIWA Withdrawal protocol but was oversedated due to counting symptoms associated with fever as withdrawal - will give Ativan 1-2mg q4h as needed; Dr. Suarez has started Precedex gtt Clinical Quality Measures DVT/VTE Risk/Contraindication: Risk Factor Score Per Nursin RFS Level Per Nursing on Admit: 4+=Very High JAVI YO MD Jun 26, 2018 09:11
[2018-06-26] MEDS ORDERED: LOPERAMIDE 2 MG (IMODIUM) CAP PO PRN (09:15)
[2018-06-26] MEDS ORDERED: TROUGH ORDER-PHARMACY XX NR (13:00)
[2018-06-26] MEDS: ATORVASTATIN 80 MG (LIPITOR) TABLET PO SCH (21:51)
[2018-06-26] MEDS: traZODone 50 MG (DESYREL) TAB PO SCH (21:51)
[2018-06-27 00:46] VITALS: BP 154/80
[2018-06-27] MEDS: VANCOMYCIN INJECTION 1,750 MG in NS IV 500 ML 500 ML IV SCH ×2 (02:32→14:20)
[2018-06-27] MEDS: ENOXAPARIN 300 MG/3 ML (LOVENOX) MULTI-DOSE VIAL SQ SCH (02:32)
[2018-06-27 04:18] VITALS: BP 177/86
[2018-06-27] MEDS: PIPERACILLIN SODIUM/TAZOBACTAM 4.5 GM in NS (IVPB) 100 ML IV SCH ×3 (04:47→20:44)
[2018-06-27] MEDS: inSUlin ASPART (NovoLOG) 1 UNIT/0.01 ML (CHARGE PER UNIT) SQ SCH ×4 (05:09→20:45)
[2018-06-27] MEDS: metFORMIN XR 500 MG (GLUCOPHAGE XR) TAB PO SCH ×2 (06:12→17:21)
[2018-06-27] MEDS: MULTIVIT W/MINERALS TAB (THERAGRAN M) PO SCH (06:12)
--- NOTE | 2018-06-27 07:33 | Pulmonary Progress Note ---
Sepsis Event Evaluation Height, Weight, BMI Height: 6'0.00" Weight: 263lbs. 5.0oz. 119.399904sw; 35.5 BMI Method:Stated Exam Exam Vital Signs Date Time Temp Pulse Resp B/P (MAP) Pulse Ox O2 Delivery O2 Flow Rate FiO2 06/27/18 04:18 99.1 75 18 177/86 (116) 98 Nasal Cannula 2.00 06/27/18 01:49 98 Nasal Cannula 2.00 06/27/18 00:46 98.7 70 20 154/80 (104) 97 Nasal Cannula 3.50 06/26/18 21:39 80 20 95 30.00 06/26/18 21:00 Room Air 06/26/18 20:30 98.5 77 20 160/72 (101) 94 Nasal Cannula 2.00 06/26/18 18:50 95 Nasal Cannula 2.00 06/26/18 16:12 98.2 73 20 127/67 (87) 95 Nasal Cannula 2.00 06/26/18 14:51 97 Nasal Cannula 2.00 06/26/18 12:00 Nasal Cannula 2.00 06/26/18 11:11 97.9 66 20 146/71 (96) 98 Nasal Cannula 2.00 06/26/18 10:00 68 19 149/78 (101) 97 Nasal Cannula 3.00 06/26/18 09:00 78 17 135/69 (91) 96 Nasal Cannula 3.00 06/26/18 08:00 97.8 06/26/18 08:00 97 Nasal Cannula 2.00 06/26/18 08:00 84 20 162/76 (104) 96 Nasal Cannula 3.00 I & O 06/27/18 07:00 Intake Total 1670 ml Output Total 1475 ml Balance 195 ml Height & Weight Height: 6'0.00" Weight: 263lbs. 5.0oz. 119.617142xk; 35.5 BMI Method:Stated General Appearance: No Apparent Distress, WD/WN HEENT: PERRL/EOMI, Normal ENT Inspection, Pharynx Normal Neck: Full Range of Motion, Normal Inspection, Non Tender Respiratory: Chest Non Tender, Lungs Clear, Normal Breath Sounds, No Accessory Muscle Use, No Respiratory Distress Cardiovascular: No Edema, No Gallop Capillary Refill: Less Than 3 Seconds Gastrointestinal: normal bowel sounds, non tender, soft Extremity: Normal Capillary Refill, Normal Inspection Neurologic/Psychiatric: Alert, Oriented x3 Skin: Normal Color, Warm/Dry Results Lab Laboratory Tests 06/26/18 03:20 Assessment/Plan Assessment/Plan Acute respiratory distress with hypoxia and CP doubt PE - improved -Titrate oxygen as tolerated V/Q is negative -Stat bilateral dopplers- negative Severe Sepsis secondary to LLE cellulitis -[place] Abx to Zosyn, and Vanco -Demarco cultures Pulmonary edema -Lasix -Hep lock IVF NIKHIL - resolved Elevated troponin -Cardiology pending Obesity with probable NATE -Will start BIPAP PRN and QHS -Will follow as an out patient ILIA VELASQUEZ DO Jun 27, 2018 07:33
[2018-06-27 07:39] VITALS: BP 177/85
--- NOTE | 2018-06-27 08:21 | Progress Note-Cardiology ---
Cardiology SOAP Progress Note Subjective: Sitting up on the side of the bed. States he feels better. Spouse at the bedside. LE swelling improved. No c/o CP or palpitations. Objective: I&O/Vital Signs 06/27/18 06/27/18 06/27/18 06/27/18 00:46 01:49 04:18 07:27 Temp 98.7 99.1 Pulse 70 75 Resp 20 18 B/P (MAP) 154/80 (104) 177/86 (116) Pulse Ox 97 98 98 96 O2 Delivery Nasal Cannula Nasal Cannula Nasal Cannula Nasal Cannula O2 Flow Rate 3.50 2.00 2.00 2.00 06/27/18 06/27/18 07:39 09:00 Temp 97.1 Pulse 70 Resp 18 B/P (MAP) 177/85 (115) Pulse Ox 96 O2 Delivery Nasal Cannula Room Air O2 Flow Rate 2.00 06/27/18 00:00 Intake Total 930 ml Output Total 1050 ml Balance -120 ml Weight (Pounds): 263 Weight (Ounces): 5.0 Weight (Calculated Kilograms): 119.942637 Constitutional: well-developed, well-nourished Respiratory: No accessory muscle use; lungs clear to auscultation (diminished bases bilat) Cardiovascular: regular rate-rhythm, S1 and S2, systolic murmur (soft TERRANCE at card base) Gastrointestional: No tender; soft; No guarding, No rebound; audible bowel sounds Extremities: other (mild redness to LLE - improved); No clubbing, No cyanosis Neurologic/Psychiatric: oriented x 3, grossly intact, power is 5/5 both on sides Skin: No ulcerations on exposed areas; other (see under extremity exam) Results/Procedures: Labs Laboratory Tests 06/26/18 12:58: Vancomycin Level Trough 16.0 06/26/18 16:16: Glucometer 114H 06/26/18 20:33: Glucometer 142H 06/27/18 03:20: Sodium Level 138, Potassium Level 3.8, Chloride Level 106, Carbon Dioxide Level 21, Anion Gap 11, Blood Urea Nitrogen 13, Creatinine 1.23, Estimat Glomerular Filtration Rate 59, BUN/Creatinine Ratio 11, Glucose Level 174H, Calcium Level 9.5, Magnesium Level 1.9 06/27/18 05:07: Glucometer 112H 06/27/18 10:48: Glucometer 201H Microbiology 06/23/18 Blood Culture - Preliminary, Resulted No growth 06/23/18 MRSA Screen - Final, Complete MRSA not isolated 06/24/18 Urine Culture - Final, Complete NO GROWTH A/P: Assessment: Acute resp insufficiency, probably multifactorial (see below) Sepsis, likely due to pneumonia and R leg cellulitis - improved Acute diastolic CHF - improved Acute renal insufficiency of undetermined etiology - improved Mild troponin elevation, likely due to hypoxia during shortness of breath on CAD - Cardiac cath of 09-18-2014 that showed 80% mid vessel bifurcation stenosis in the LAD to which balloon angioplasty was undertaken, with reduction of stenosis to approximately 50%. 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 WEI of 09-13-2014 is suggestive of a small PFO with a small amount of left to right shunt. LVEF 50%. Trivial to mild TR Cardiac cath of 09-18-2014 showed no evidence of intracardiac shunt. LVEF 60%. 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
[2018-06-27] MEDS ORDERED: FUROSEMIDE 40 MG (LASIX) TAB PO SCH (09:00)
[2018-06-27 09:30] LABS: CALCIUM 9.5 MG/DL (8.5-10.1); CREATININE SERUM 1.23 MG/DL (0.60-1.30); MAGNESIUM 1.9 MG/DL (1.8-2.4); POTASSIUM 3.8 MMOL/L (3.6-5.0)
[2018-06-27] MEDS: ARIPIPRAZOLE 2 MG (ABILIFY) TAB PO SCH (09:38)
[2018-06-27] MEDS: LOSARTAN 100 MG (COZAAR) TABLET PO SCH (09:38)
[2018-06-27] MEDS: FUROSEMIDE 40 MG (LASIX) TAB PO SCH (09:39)
[2018-06-27] MEDS: CYANOCOBALAMIN 1,000 MCG (VITAMIN B-12) TABLET PO SCH (09:39)
[2018-06-27] MEDS: meTOprolol TARTRATE 50 MG (LOPRESSOR) TAB PO SCH ×2 (09:39→20:44)
[2018-06-27] MEDS: OMEGA 3 (FISH OIL) 1000 MG CAP PO SCH ×2 (09:39→20:45)
[2018-06-27 11:00] VITALS: BP 155/72
--- NOTE | 2018-06-27 11:28 | Progress Note-Cardiology ---
Cardiology SOAP Progress Note Subjective: Feels better than before Less short of breath (back to usual baseline) No cp or palp or syncope Objective: I&O/Vital Signs 06/27/18 06/27/18 06/27/18 06/27/18 00:46 01:49 04:18 07:27 Temp 98.7 99.1 Pulse 70 75 Resp 20 18 B/P (MAP) 154/80 (104) 177/86 (116) Pulse Ox 97 98 98 96 O2 Delivery Nasal Cannula Nasal Cannula Nasal Cannula Nasal Cannula O2 Flow Rate 3.50 2.00 2.00 2.00 06/27/18 06/27/18 07:39 09:00 Temp 97.1 Pulse 70 Resp 18 B/P (MAP) 177/85 (115) Pulse Ox 96 O2 Delivery Nasal Cannula Room Air O2 Flow Rate 2.00 06/27/18 00:00 Intake Total 930 ml Output Total 1050 ml Balance -120 ml Weight (Pounds): 263 Weight (Ounces): 5.0 Weight (Calculated Kilograms): 119.401323 Constitutional: well-developed, well-nourished Respiratory: No accessory muscle use; lungs clear to auscultation (diminished bases bilat) Cardiovascular: regular rate-rhythm, S1 and S2, systolic murmur (soft TERRANCE at card base) Gastrointestional: No tender; soft; No guarding, No rebound; audible bowel sounds Extremities: other (mild redness to LLE - improved); No clubbing, No cyanosis Neurologic/Psychiatric: oriented x 3, grossly intact, power is 5/5 both on sides Skin: No ulcerations on exposed areas; other (see under extremity exam) Results/Procedures: Labs Laboratory Tests 06/26/18 12:58: Vancomycin Level Trough 16.0 06/26/18 16:16: Glucometer 114H 06/26/18 20:33: Glucometer 142H 06/27/18 03:20: Sodium Level 138, Potassium Level 3.8, Chloride Level 106, Carbon Dioxide Level 21, Anion Gap 11, Blood Urea Nitrogen 13, Creatinine 1.23, Estimat Glomerular Filtration Rate 59, BUN/Creatinine Ratio 11, Glucose Level 174H, Calcium Level 9.5, Magnesium Level 1.9 06/27/18 05:07: Glucometer 112H 06/27/18 10:48: Glucometer 201H Microbiology 06/23/18 Blood Culture - Preliminary, Resulted No growth 06/23/18 MRSA Screen - Final, Complete MRSA not isolated 06/24/18 Urine Culture - Final, Complete NO GROWTH Laboratory Tests 06/26/18 03:20 06/27/18 03:20 A/P: Assessment: Acute resp insufficiency, probably multifactorial (see below) Sepsis, likely due to pneumonia and R leg cellulitis - improved Acute diastolic CHF - improved Acute renal insufficiency of undetermined etiology - improved Mild troponin elevation, likely due to hypoxia during shortness of breath on CAD - Cardiac cath of 09-18-2014 that showed 80% mid vessel bifurcation stenosis in the LAD to which balloon angioplasty was undertaken, with reduction of stenosis to approximately 50%. 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 WEI of 09-13-2014 is suggestive of a small PFO with a small amount of left to right shunt. LVEF 50%. Trivial to mild TR Cardiac cath of 09-18-2014 showed no evidence of intracardiac shunt. LVEF 60%. 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
[2018-06-27 16:00] VITALS: BP 186/84
--- NOTE | 2018-06-27 16:43 | Progress Note (SOAP) ---
Subjective Subjective/Events-last exam Afebrile, no acute events. Feeling pretty well. Review of Systems Date Seen by Provider: Jun 27, 2018 Time Seen by Provider: 10:05 Objective Exam Last Set of Vital Signs Vital Signs Date Time Temp Pulse Resp B/P (MAP) Pulse Ox O2 Delivery O2 Flow Rate FiO2 06/27/18 11:00 98.7 66 16 155/72 (99) 96 Nasal Cannula 2.00 06/25/18 07:45 30 Capillary Refill : Less Than 3 Seconds I&O Intake and Output 06/27/18 00:00 Intake Total 1920 ml Output Total 1475 ml Balance 445 ml Intake Oral 1920 ml Output Urine Total 1475 ml # Voids 3 # Bowel Movements 3 General: Alert, No Acute Distress Lungs: Clear to Auscultation, Normal Air Movement Heart: Regular Rate, No Murmurs Abdomen: Normal Bowel Sounds, Soft Skin: Other (erythema of left lower inner leg that has receeded from lines drawn previously) Neuro: Normal Speech Psych/Mental Status: Mental Status NL Results/Procedures Lab Laboratory Tests 06/26/18 20:33: Glucometer 142H 06/27/18 03:20: Sodium Level 138, Potassium Level 3.8, Chloride Level 106, Carbon Dioxide Level 21, Anion Gap 11, Blood Urea Nitrogen 13, Creatinine 1.23, Estimat Glomerular Filtration Rate 59, BUN/Creatinine Ratio 11, Glucose Level 174H, Calcium Level 9.5, Magnesium Level 1.9 06/27/18 05:07: Glucometer 112H 06/27/18 10:48: Glucometer 201H 06/27/18 15:41: Glucometer 89 Microbiology 06/23/18 Blood Culture - Preliminary, Resulted No growth 06/23/18 MRSA Screen - Final, Complete MRSA not isolated 06/24/18 Urine Culture - Final, Complete NO GROWTH Radiology Date of Exam: 06/23/18 CHEST 1 VIEW, AP/PA ONLY INDICATION: Fever and cough. TIME OF EXAM: 10:16 a.m. Correlation is made with prior study from 01/06/2018. The heart size is stable. Visualized lung swan appear to be fairly clear. There is some increased density to the left base. Some infiltrate at this location cannot be excluded. The pulmonary vascularity is normal. No effusion or pneumothorax is identified. IMPRESSION: Questionable infiltrate or atelectasis in the left base. The study is otherwise unremarkable. Date of Exam: 06/23/18 US VENOUS LOWER EXT SARAHI PROCEDURE: US Venous Lower Ext Sarahi. TECHNIQUE: Multiple real-time grayscale images were obtained over the lower extremities in various projections, bilaterally. Additional duplex Doppler and color Doppler images were also obtained. INDICATION: Lower extremity redness and swelling. FINDINGS: There is no evidence of right or left lower extremity DVT. Both lower extremity deep venous systems demonstrate normal compressibility with normal response to augmentation and Valsalva. No fluid collection or mass is seen. IMPRESSION: No evidence of right or left lower extremity DVT. Date of Exam: 06/23/18 US SARAHI LOWER EXT [id number] PROCEDURE: US Bilateral lower extremity arterial. TECHNIQUE: Multiple real-time grayscale images are obtained through both lower extremity arterial systems with color Doppler imaging and color Doppler spectral analysis. INDICATION: Wound on the right toe as well as bilateral lower extremity edema. FINDINGS: Predominantly triphasic waveforms are identified throughout both common femoral as well as superficial femoral and popliteal arteries. Velocities are fairly symmetric. No high-grade stenosis or occlusion is seen. There are triphasic waveforms in the right posterior tibial artery at the ankle with monophasic flow in the dorsalis pedis which appears to be reversed. There is monophasic flow in the left posterior tibial artery. No fluid collections are seen. IMPRESSION: Fairly unremarkable bilateral lower extremity arterial Doppler apart from reversal of flow in the right dorsalis pedis. No definite occlusion is identified. Date of Exam: 06/23/18 LUNG SCAN PERFUSION INDICATION: Shortness of breath. EXAMINATION: 5.5 mCi tech 99m MAA was given IV for perfusion. Ventilation study could not be performed due to patient on high O2. FINDINGS: Perfusion study shows uniform distribution without evidence of segmental or subsegmental defect. IMPRESSION: No evidence of pulmonary embolus. These findings are considered low probability for PE. Assessment/Plan Assessment/Plan Assessment & Plan 1. Respiratory Distress with hypoxia - Admitted to ICU; Dr. Suarez consulted for critical care management - Evaluation for PE negative (venous dopplers and VQ scan negative) - treated with Lovenox 06/25 -patient currently on BiPAP 06/26 -Patient is now on 3 L nasal cannula and appears to be resting comfortably -He is being transferred to [facility] 06/27- doing well on room air this am 2. Severe sepsis likely secondary to LLE cellulitis vs pneumonia with leukocytosis, lactic acidosis and fever; BP normal - started on Zosyn, Vanco - carrera cultures pending 06/25 -day number 2 of vancomycin and Zosyn 06/26 -Day number 3 of vancomycin and Zosyn 06/27- day 4 vanc and zosyn, blood culture with suspected contaminant, no other growth. LLE arterial doppler noted to have no evidence of critical stenosis, although monophasic waveform in left posterior tibial 3. NIKHIL - Cr on admission 1.69 --> 1.63 GFR 43 - IVF 06/25 -creatinine has improved 06/27 Resolved 4. Elevated troponin; hx CAD s/p balloon angioplasty -likely secondary to hypoxia; Dr. Cr consulted - on ASA, beta estrellita; Dr. Cr has added diuretic 5. L leg cellulitis - on Zosyn and Vanco 06/25 -It appears the erythema is less to the L lower extremity 06/26 -Improvement noted 06/27 continued improvement anticipate may be able to transition to oral tomorrow 6. DM Type 2 with other specified complications of hypertension and hyperlipidemia - BS stable since admission - on SSI 7. Obesity with probable NATE - will need sleep study as OP - Bipap prn and hs 8. Hx of alcohol use - was put on CIWA Withdrawal protocol but was oversedated due to counting symptoms associated with fever as withdrawal - will give Ativan 1-2mg q4h as needed; Dr. Suarez has started Precedex gtt 06/27 mental status normal, not receiving ativan 9. DVT ppx- enoxaparin Clinical Quality Measures DVT/VTE Risk/Contraindication: Risk Factor Score Per Nursin RFS Level Per Nursing on Admit: 4+=Very High MIRIAN SILVA MD Jun 27, 2018 16:43
[2018-06-27 20:00] VITALS: BP 160/74
[2018-06-27] MEDS: traZODone 50 MG (DESYREL) TAB PO SCH (20:44)
[2018-06-27] MEDS: ATORVASTATIN 80 MG (LIPITOR) TABLET PO SCH (20:45)
[2018-06-28 00:04] VITALS: BP 167/74
[2018-06-28] MEDS: VANCOMYCIN INJECTION 1,750 MG in NS IV 500 ML 500 ML IV SCH ×2 (01:35→13:15)
[2018-06-28 04:06] VITALS: BP 168/84
[2018-06-28] MEDS: PIPERACILLIN SODIUM/TAZOBACTAM 4.5 GM in NS (IVPB) 100 ML IV SCH ×2 (04:36→12:04)
[2018-06-28 06:19] LABS: HEMOGLOBIN 12.3 G/DL (13.3-17.7); MEAN PLATELET VOLUME 9.2 FL (7.4-10.4); RED BLOOD COUNT 4.27 10^6/uL (4.35-5.85); RED CELL DISTRIBUTION WIDTH 14.3 % (10.0-14.5); WHITE BLOOD COUNT 6.4 10^3/uL (4.3-11.0)
[2018-06-28] MEDS: metFORMIN XR 500 MG (GLUCOPHAGE XR) TAB PO SCH (06:32)
[2018-06-28] MEDS: inSUlin ASPART (NovoLOG) 1 UNIT/0.01 ML (CHARGE PER UNIT) SQ SCH ×3 (06:33→16:26)
[2018-06-28] MEDS: MULTIVIT W/MINERALS TAB (THERAGRAN M) PO SCH (06:33)
[2018-06-28 06:43] LABS: BUN/CREATININE RATIO 11; CALCIUM 9.5 MG/DL (8.5-10.1); CARBON DIOXIDE 23 MMOL/L (21-32); CHLORIDE 106 MMOL/L (98-107); CREATININE SERUM 1.16 MG/DL (0.60-1.30); GFR ESTIMATED > 60; GLUCOSE 106 MG/DL (70-105); MAGNESIUM 1.8 MG/DL (1.8-2.4); POTASSIUM 3.6 MMOL/L (3.6-5.0); SODIUM 140 MMOL/L (135-145)
[2018-06-28] MEDS ORDERED: KCL 10 MEQ TAB (MICRO K) PO SCH (07:00)
[2018-06-28] MEDS ORDERED: ENOXAPARIN 40 MG/0.4 ML (LOVENOX) SYR SQ SCH (07:00)
--- NOTE | 2018-06-28 07:34 | Pulmonary Progress Note ---
Subjective Time Seen by a Provider: 07:35 Subjective/Events-last exam Pt feels improved. SOB is better. Sepsis Event Evaluation Height, Weight, BMI Height: 6'0.00" Weight: 263lbs. 5.0oz. 119.535262ef; 35.5 BMI Method:Stated Exam Exam Vital Signs Date Time Temp Pulse Resp B/P (MAP) Pulse Ox O2 Delivery O2 Flow Rate FiO2 06/28/18 00:04 97.5 72 18 167/74 (105) 94 Nasal Cannula 2.00 06/27/18 21:00 Room Air 06/27/18 20:00 98.5 70 21 160/74 (102) 93 Nasal Cannula 2.00 06/27/18 16:00 97.6 69 18 186/84 (118) 94 Nasal Cannula 2.00 06/27/18 11:00 98.7 66 16 155/72 (99) 96 Nasal Cannula 2.00 06/27/18 09:00 Room Air 06/27/18 07:39 97.1 70 18 177/85 (115) 96 Nasal Cannula 2.00 06/27/18 07:27 96 Nasal Cannula 2.00 I & O 06/28/18 07:00 Intake Total 1800 ml Output Total 2000 ml Balance -200 ml Height & Weight Height: 6'0.00" Weight: 263lbs. 5.0oz. 119.454316cu; 35.5 BMI Method:Stated General Appearance: No Apparent Distress, WD/WN HEENT: PERRL/EOMI, Normal ENT Inspection, Pharynx Normal Neck: Full Range of Motion, Normal Inspection, Non Tender Respiratory: Chest Non Tender, Lungs Clear, Normal Breath Sounds, No Accessory Muscle Use, No Respiratory Distress Cardiovascular: No Edema, No Gallop Capillary Refill: Less Than 3 Seconds Gastrointestinal: normal bowel sounds, non tender, soft Extremity: Normal Capillary Refill, Normal Inspection Neurologic/Psychiatric: Alert, Oriented x3 Skin: Normal Color, Warm/Dry Results Lab Laboratory Tests 06/27/18 03:20 06/28/18 05:31 Assessment/Plan Assessment/Plan Acute respiratory distress with hypoxia and CP doubt PE - improved -improved -Pt will need oxygen qualification testing prior to discharge. Severe Sepsis secondary to LLE cellulitis -Abx therapy Pulmonary edema - resolved per last CXR NIKHIL - resolved Elevated troponin -Cardiology pending Obesity with probable NATE -BIPAP PRN and QHS -Will follow as an out patient ILIA VELASQUEZ DO Jun 28, 2018 07:34
[2018-06-28 08:00] VITALS: BP 163/74
--- NOTE | 2018-06-28 08:39 | Progress Note-Cardiology ---
Cardiology SOAP Progress Note Subjective: He states he feels "fine". No c/o CP, palpitations, or dyspnea. Spouse at the bedside. Objective: I&O/Vital Signs Weight (Pounds): 258 Weight (Ounces): 1.0 Weight (Calculated Kilograms): 117.860247 Constitutional: well-developed, well-nourished Respiratory: No accessory muscle use; lungs clear to auscultation (diminished bases bilat) Cardiovascular: regular rate-rhythm, S1 and S2, systolic murmur (soft TERRANCE at card base) Gastrointestional: No tender; soft; No guarding, No rebound; audible bowel sounds Extremities: other (mild redness to LLE - improved); No clubbing, No cyanosis Neurologic/Psychiatric: oriented x 3, grossly intact, power is 5/5 both on sides Skin: No ulcerations on exposed areas; other (see under extremity exam) Results/Procedures: Labs Microbiology 06/23/18 Blood Culture - Final, Complete No growth 06/23/18 MRSA Screen - Final, Complete MRSA not isolated 06/24/18 Urine Culture - Final, Complete NO GROWTH A/P: Assessment: Acute resp insufficiency, probably multifactorial (see below) Sepsis, likely due to pneumonia and R leg cellulitis - improved Acute diastolic CHF - improved Acute renal insufficiency of undetermined etiology - improved Mild troponin elevation, likely due to hypoxia during shortness of breath on CAD - Cardiac cath of 09-18-2014 that showed 80% mid vessel bifurcation stenosis in the LAD to which balloon angioplasty was undertaken, with reduction of stenosis to approximately 50%. 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 WEI of 09-13-2014 is suggestive of a small PFO with a small amount of left to right shunt. LVEF 50%. Trivial to mild TR Cardiac cath of 09-18-2014 showed no evidence of intracardiac shunt. LVEF 60%. 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
[2018-06-28] MEDS ORDERED: meTOprolol TARTRATE 50 MG (LOPRESSOR) TAB PO SCH (09:00)
[2018-06-28] MEDS ORDERED: amLODIPine 5 MG (NORVASC) TAB PO SCH (09:00)
[2018-06-28] MEDS: OMEGA 3 (FISH OIL) 1000 MG CAP PO SCH (09:17)
[2018-06-28] MEDS: ARIPIPRAZOLE 2 MG (ABILIFY) TAB PO SCH (09:17)
[2018-06-28] MEDS: LOSARTAN 100 MG (COZAAR) TABLET PO SCH (09:17)
[2018-06-28] MEDS: FUROSEMIDE 40 MG (LASIX) TAB PO SCH (09:17)
[2018-06-28] MEDS: CYANOCOBALAMIN 1,000 MCG (VITAMIN B-12) TABLET PO SCH (09:18)
[2018-06-28] MEDS ORDERED: LOSA100T8 PO (09:33)
[2018-06-28] MEDS ORDERED: FURO80TA83 PO (09:33)
[2018-06-28] MEDS ORDERED: METO-461 PO (09:33)
[2018-06-28] MEDS ORDERED: AMOX-358 PO (11:25)
--- NOTE | 2018-06-28 11:27 | Discharge Instructions ---
Discharge [facility] Discharge Medications New, Converted or Re-Newed RX: Transmitted to Pharmacy New Medications: Amoxicillin/Potassium Clav (Augmentin 875-125 Tablet) 1 Each Tablet 1 EACH PO BID for 7 Days, #14 TAB 0 Refills Furosemide (Lasix) 80 Mg Tablet 80 MG PO DAILY, #30 TAB Metoprolol Tartrate (Lopressor) 100 Mg Tablet 200 MG PO BID, #120 TAB 5 Refills Losartan Potassium (Losartan Potassium) 100 Mg Tablet 100 MG PO DAILY, #30 TAB 5 Refills Continued Medications: Acetaminophen (Tylenol Extra Strength) 500 Mg Tablet 1000 MG PO BID, TAB Allopurinol (Allopurinol) 100 Mg Tablet 100 MG PO BID, TAB Aripiprazole (Abilify) 2 Mg Tablet 2 MG PO DAILY, TAB Aspirin (Aspir 81) 81 Mg Tablet.dr 81 MG PO DAILY, TAB Atorvastatin Calcium (Atorvastatin Calcium) 80 Mg Tablet 80 MG PO HS, TAB Cholecalciferol (Vitamin D3) (Vitamin D3) 1,000 Unit Tablet 1000 UNIT PO DAILY, TAB Cyanocobalamin (Vitamin B-12) (B-12) 1,000 Mcg Tablet 1000 MCG PO DAILY, TAB Dexlansoprazole (Dexilant) 60 Mg Cap.bp 60 MG PO BID, CAP Fenofibric Acid (Choline) (Fenofibric Acid) 135 Mg Capsule.dr 135 MG PO HS, CAP Fluoxetine HCl (Fluoxetine HCl) 40 Mg Capsule 40 MG PO HS, CAP Folic Acid (Folic Acid) 0.4 Mg Tablet 0.4 MG PO HS, TAB Metformin HCl (Metformin HCl ER) 500 Mg Tab.er.24h 500 MG PO BID WITH MEALS, TAB [place]berry 3 Polyunsat Fatty Acids (Fish Oil 1,000 mg Capsule) 1,000 Mg Cap 1000 MG PO BID, CAP Potassium Chloride (Potassium Chloride) 20 Meq Tab.er.prt 20 MEQ PO DAILY Solifenacin Succinate (Vesicare) 5 Mg Tablet 5 MG PO HS, TAB Tramadol HCl (Tramadol HCl) 50 Mg Tablet 50 MG PO DAILY, TAB Tramadol HCl (Tramadol HCl) 50 Mg Tablet 100 MG PO HS, TAB TAKES 2 (50MG) TABLETS Trazodone HCl (Trazodone HCl) 100 Mg Tablet 50 MG PO HS, TAB TAKES 1/2 (100MG) TABLET Ubidecarenone (Co Q10) 200 Mg Capsule 200 MG PO DAILY, CAP Discontinued Medications: Furosemide (Furosemide) 40 Mg Tablet 40 MG PO DAILY, TAB Metoprolol Tartrate (Metoprolol Tartrate) 50 Mg Tablet 50 MG PO BID, TAB Patient Instructions Goal/Follow Up Appt: Follow up with Dr. Cr and Dr. Suarez as scheduled. Follow up with Dr. George on 06/30 at 1:20 pm. Return to The Hospital For: Fever, inability to keep down antibiotics, severe headache or chest pain Activity & Diet Discharge Diet: ADA Diet, Cardiac Diet Activity as Tolerated: Yes Copy Copies To 1: JEROME GEORGE MDOCH,MIRIAN Bal MD Jun 28, 2018 11:27
--- NOTE | 2018-06-28 11:32 | Discharge Summary ---
Diagnosis/Chief Complaint Date of Admission Jun 23, 2018 at 11:35 Date of Discharge Jun 28, 2018 Admission Diagnosis Admission Diagnosis 1. Respiratory Distress with hypoxia 2. Severe sepsis likely secondary to LLE cellulitis vs pneumonia 3. NIKHIL 4. Elevated troponin; hx CAD s/p ballon angioplasty 5. R leg cellulitis Discharge Diagnosis 1. Respiratory Distress with hypoxia - Admitted to ICU; Dr. Suarez consulted for critical care management - Evaluation for PE negative (venous dopplers and VQ scan negative) - treated with Lovenox 06/25 -patient currently on BiPAP 06/26 -Patient is now on 3 L nasal cannula and appears to be resting comfortably -He is being transferred to [facility] 06/27- doing well on room air this am 2. Severe sepsis likely secondary to LLE cellulitis vs pneumonia with leukocytosis, lactic acidosis and fever; BP normal - started on Zosyn, Vanco - carrera cultures pending 06/25 -day number 2 of vancomycin and Zosyn 06/26 -Day number 3 of vancomycin and Zosyn 06/27- day 4 vanc and zosyn, blood culture with suspected contaminant, no other growth. LLE arterial doppler noted to have no evidence of critical stenosis, although monophasic waveform in left posterior tibial, reversal of flow in right dorsalis pedis 06/28- d/c with Augmentin for 7 more days 3. NIKHIL - Cr on admission 1.69 --> 1.63 GFR 43 - IVF 06/25 -creatinine has improved 06/27 Resolved 4. Elevated troponin; hx CAD s/p balloon angioplasty -likely secondary to hypoxia; Dr. Cr consulted - on ASA, beta estrellita; Dr. Cr has added diuretic 5. L leg cellulitis - on Zosyn and Vanco 06/25 -It appears the erythema is less to the L lower extremity 06/26 -Improvement noted 06/27 continued improvement anticipate may be able to transition to oral tomorrow 6. DM Type 2 with other specified complications of hypertension and hyperlipidemia - BS stable since admission - on SSI 7. Obesity with probable NATE - will need sleep study as OP - Bipap prn and hs 8. Hx of alcohol use - was put on CIWA Withdrawal protocol but was oversedated due to counting symptoms associated with fever as withdrawal - will give Ativan 1-2mg q4h as needed; Dr. Suarez has started Precedex gtt 06/27 mental status normal, not receiving ativan 9. HTN- marked during inpatient stay, Dr. Cr adjusted BP meds significantly during stay. Chief Complaint/HPI Chief Complaint/HPI This is a 62yo male patient of Dr. George'roshni who presented to ER by EMS for sudden onset severe dyspnea and hypoxia. reports that patient c/o of sudden onset of chills which progressed to generalized not feeling well and shortness of breath. She left work to come home and take him to the ER but as they started en route he became severely dyspneic so she returned home and called EMS. He was found to have sats in the 's by EMS. Patient had a similar episode of sudden onset fever/chills in December requiring admission. At that time he was septic from cellulits and developed pulmonary edema. Pt was noted to have cellulits of his R lower leg in the ER during this current admission as well as fever up to 102. Unknown injury to leg but states they had trimmed some thorny bushes the last couple of days. Pt has a history of alcoholism but to her knowledge had not been drinking until she recently found out he has been drinking about 3 days per week. Discharge Summary-Simple/Stand Consultations Discharge Physical Examination Allergies: Coded Allergies: No Known Drug Allergies (Verified , 05/19/08) Uncoded Allergies: [id number] (HAYFEVER) (Allergy, Mild, 12/21/08) Vitals & I&Os Vital Sign - Last 12Hours Date Time Temp Pulse Resp B/P (MAP) Pulse Ox O2 Delivery O2 Flow Rate FiO2 06/28/18 08:05 93 Room Air 06/28/18 08:00 98.0 71 20 163/74 (103) 2.00 06/25/18 07:45 30 Intake and Output 06/28/18 00:00 Intake Total 1200 ml Output Total 1800 ml Balance -600 ml General Appearance: Alert, No Acute Distress Respiratory: Clear to Auscultation, Normal Air Movement Cardiovascular: Regular Rate, No Murmurs Abdominal: Normal Bowel Sounds, Soft Skin: Other (faint erythema in left lower anterior leg) Psych/Mental Status: Mental Status NL Hospital Course See final discharge diagnosis. Labs Laboratory Tests Test 06/26/18 12:58 06/26/18 16:16 06/26/18 20:33 06/27/18 03:20 Range/Units Vancomycin Level Trough 16.0 10.0-20.0 UG/ML Glucometer 114 H 142 H 70-110 MG/DL Sodium Level 138 135-145 MMOL/L Potassium Level 3.8 3.6-5.0 MMOL/L Chloride Level 106 98-107 MMOL/L Carbon Dioxide Level 21 21-32 MMOL/L Anion Gap 11 5-14 MMOL/L Blood Urea Nitrogen 13 7-18 MG/DL Creatinine 1.23 0.60-1.30 MG/DL Estimat Glomerular Filtration Rate 59 BUN/Creatinine Ratio 11 Glucose Level 174 H 70-105 MG/DL Calcium Level 9.5 8.5-10.1 MG/DL Magnesium Level 1.9 1.8-2.4 MG/DL Test 06/27/18 05:07 06/27/18 10:48 06/27/18 15:41 06/27/18 20:34 Range/Units Glucometer 112 H 201 H 89 97 70-110 MG/DL Test 06/28/18 05:31 06/28/18 05:40 Range/Units White Blood Count 6.4 4.3-11.0 10^3/uL Red Blood Count 4.27 L 4.35-5.85 10^6/uL Hemoglobin 12.3 L 13.3-17.7 G/DL Hematocrit 37 L 40-54 % Mean Corpuscular Volume 87 80-99 FL Mean Corpuscular Hemoglobin 29 25-34 PG Mean Corpuscular Hemoglobin Concent 33 32-36 G/DL Red Cell Distribution Width 14.3 10.0-14.5 % Platelet Count 238 130-400 10^3/uL Mean Platelet Volume 9.2 7.4-10.4 FL Sodium Level 140 135-145 MMOL/L Potassium Level 3.6 3.6-5.0 MMOL/L Chloride Level 106 98-107 MMOL/L Carbon Dioxide Level 23 21-32 MMOL/L Anion Gap 11 5-14 MMOL/L Blood Urea Nitrogen 13 7-18 MG/DL Creatinine 1.16 0.60-1.30 MG/DL Estimat Glomerular Filtration Rate > 60 BUN/Creatinine Ratio 11 Glucose Level 106 H 70-105 MG/DL Calcium Level 9.5 8.5-10.1 MG/DL Magnesium Level 1.8 1.8-2.4 MG/DL Glucometer 96 70-110 MG/DL Radiology Reviewed Date of Exam: 06/23/18 CHEST 1 VIEW, AP/PA ONLY INDICATION: Fever and cough. TIME OF EXAM: 10:16 a.m. Correlation is made with prior study from 01/06/2018. The heart size is stable. Visualized lung swan appear to be fairly clear. There is some increased density to the left base. Some infiltrate at this location cannot be excluded. The pulmonary vascularity is normal. No effusion or pneumothorax is identified. IMPRESSION: Questionable infiltrate or atelectasis in the left base. The study is otherwise unremarkable. Date of Exam: 06/23/18 US VENOUS LOWER EXT SARAHI PROCEDURE: US Venous Lower Ext Sarahi. TECHNIQUE: Multiple real-time grayscale images were obtained over the lower extremities in various projections, bilaterally. Additional duplex Doppler and color Doppler images were also obtained. INDICATION: Lower extremity redness and swelling. FINDINGS: There is no evidence of right or left lower extremity DVT. Both lower extremity deep venous systems demonstrate normal compressibility with normal response to augmentation and Valsalva. No fluid collection or mass is seen. IMPRESSION: No evidence of right or left lower extremity DVT. Date of Exam: 06/23/18 US SARAHI LOWER EXT [id number] PROCEDURE: US Bilateral lower extremity arterial. TECHNIQUE: Multiple real-time grayscale images are obtained through both lower extremity arterial systems with color Doppler imaging and color Doppler spectral analysis. INDICATION: Wound on the right toe as well as bilateral lower extremity edema. FINDINGS: Predominantly triphasic waveforms are identified throughout both common femoral as well as superficial femoral and popliteal arteries. Velocities are fairly symmetric. No high-grade stenosis or occlusion is seen. There are triphasic waveforms in the right posterior tibial artery at the ankle with monophasic flow in the dorsalis pedis which appears to be reversed. There is monophasic flow in the left posterior tibial artery. No fluid collections are seen. IMPRESSION: Fairly unremarkable bilateral lower extremity arterial Doppler apart from reversal of flow in the right dorsalis pedis. No definite occlusion is identified. Date of Exam: 06/23/18 LUNG SCAN PERFUSION INDICATION: Shortness of breath. EXAMINATION: 5.5 mCi tech 99m MAA was given IV for perfusion. Ventilation study could not be performed due to patient on high O2. FINDINGS: Perfusion study shows uniform distribution without evidence of segmental or subsegmental defect. IMPRESSION: No evidence of pulmonary embolus. These findings are considered low probability for PE. Discharge Instructions to patient/family Please see electronic discharge instructions given to patient. Discharge Medications Reviewed and agree with Discharge Medication list on patient's Discharge Instruction sheet Clinical Quality Measures DVT/VTE Risk/Contraindication: Risk Factor Score Per Nursin RFS Level Per Nursing on Admit: 4+=Very High Copy Copies To 1: JEROME GEORGE MD, BETHANY N MD Jun 28, 2018 11:32
[2018-06-28 12:00] VITALS: BP 150/92
[2018-06-28 16:00] VITALS: BP 157/75
== END 2018-06-28 16:57 | disposition home or self-care (01) | DRG 871 ==
LOC: EDUNIT# 09:28 → ER 09:30 → ICU 11:35 → 4TH 06-26 10:20
PROVIDERS: ADMIT Family Medicine; ATTEND Family Medicine
DX: A41.9 Sepsis, unspecified organism (principal); R65.20 Severe sepsis without septic shock; L03.116 Cellulitis of left lower limb; J18.1 Lobar pneumonia, unspecified organism; N17.9 Acute kidney failure, unspecified; E87.2 Acidosis; F10.239 Alcohol dependence with withdrawal, unspecified; J81.0 Acute pulmonary edema; R06.03 Acute respiratory distress; R09.02 Hypoxemia; I13.0 Hypertensive heart and chronic kidney disease with heart failure and stage 1 through stage 4 chronic kidney disease, or unspecified chronic kidney disease; I50.31 Acute diastolic (congestive) heart failure; N18.2 Chronic kidney disease, stage 2 (mild); E11.21 Type 2 diabetes mellitus with diabetic nephropathy; R79.89 Other specified abnormal findings of blood chemistry; I25.10 Atherosclerotic heart disease of native coronary artery without angina pectoris; I07.1 Rheumatic tricuspid insufficiency; M19.91 Primary osteoarthritis, unspecified site; M10.9 Gout, unspecified; K21.9 Gastro-esophageal reflux disease without esophagitis; K22.70 Barrett's esophagus without dysplasia; E78.00 Pure hypercholesterolemia, unspecified; N40.0 Benign prostatic hyperplasia without lower urinary tract symptoms; G47.33 Obstructive sleep apnea (adult) (pediatric); F10.21 Alcohol dependence, in remission; E66.9 Obesity, unspecified; Z68.34 Body mass index [BMI] 34.0-34.9, adult; Z95.5 Presence of coronary angioplasty implant and graft; Z87.891 Personal history of nicotine dependence; Z79.84 Long term (current) use of oral hypoglycemic drugs
CPT/HCPCS: 36415; 71045; 80048; 80053; 80202; 80320; 81000; 82040; 82805; 82962; 83605; 83735; 83880; 84100; 84450; 84460; 84484; 85007; 85025; 85027; 85379; 85610; 85730; 87040; 87081; 87088; 87804; 93005; 93306; 93925; 93970; 94640; 94660; 94760; 96365

== ENCOUNTER → 2018-07-04 | Outpatient (CLI) | payer OTHER, MEDICARE ==
[~2018-07-04] MED LIST changes: +AMOX-358 PO; +DEXL60CA PO; +FURO80TA83 PO; +LOSA100T8 PO; +METO-461 PO; +NF-SOLIF5T PO
[2018-07-04 07:36] LABS: CREATININE SERUM 1.47 MG/DL (0.60-1.30); POTASSIUM 4.2 MMOL/L (3.6-5.0)
== END ==
LOC: LAB 07:06
PROVIDERS: ATTEND Nurse Practitioner Family
DX: I10 Essential (primary) hypertension (principal)
CPT/HCPCS: 36415; 80048; 83735

== ENCOUNTER → 2018-07-27 | Outpatient (CLI) | payer OTHER ==
[2018-07-27 07:58] LABS: ALBUMIN 4.2 GM/DL (3.2-4.5); BILIRUBIN,TOTAL 0.5 MG/DL (0.1-1.0); CALCIUM 9.7 MG/DL (8.5-10.1); CREATININE SERUM 1.37 MG/DL (0.60-1.30); MAGNESIUM 1.6 MG/DL (1.8-2.4); POTASSIUM 4.2 MMOL/L (3.6-5.0); TOTAL PROTEIN 7.2 GM/DL (6.4-8.2)
== END ==
LOC: LAB 07:15
PROVIDERS: ATTEND Internal Medicine Cardiovascular Disease
DX: I10 Essential (primary) hypertension (principal); I25.10 Atherosclerotic heart disease of native coronary artery without angina pectoris; N28.9 Disorder of kidney and ureter, unspecified; Z87.19 Personal history of other diseases of the digestive system
CPT/HCPCS: 36415; 80053; 80061; 83735

== ENCOUNTER 2018-07-29 19:57 | Outpatient (CLI) | payer OTHER, MEDICARE | END 2018-07-30 06:01 | disposition home or self-care (01) | LOC: SLEEP 19:57 | PROVIDERS: ATTEND Nurse Practitioner Family | DX: G47.33 Obstructive sleep apnea (adult) (pediatric) (principal); G47.10 Hypersomnia, unspecified; R06.09 Other forms of dyspnea | CPT/HCPCS: 95811 ==

== ENCOUNTER 2018-08-30 06:58 | Day surgery (SDC) | payer OTHER, MEDICARE ==
[~2018-08-30] VITALS: Ht 182.9 cm; Wt 120.2 kg
[2018-08-30] VITALS (11 sets, daily range): BP systolic 152–203; BP diastolic 74–105
[~2018-08-30 06:58] MED LIST changes: +HEParin (CATH LAB) 2,000 ML IV ONE; +LIDOCAINE 1% INJ 20 ML 20 ML VIAL ONE; +LOSA100T57 PO; -LOSA100T8 PO; +NS IV 1000 ML 1,000 ML ONE
[2018-08-30] MEDS: NS IV 1000 ML 1,000 ML IV SCH ×2 (07:08→09:34)
[2018-08-30 07:33] LABS: HEMOGLOBIN 14.3 G/DL (13.3-17.7); MEAN PLATELET VOLUME 8.6 FL (7.4-10.4); RED CELL DISTRIBUTION WIDTH 14.1 % (10.0-14.5); WHITE BLOOD COUNT 7.3 10^3/uL (4.3-11.0)
[2018-08-30] MEDS ORDERED: FURO80TA3 PO (07:39)
[2018-08-30] MEDS ORDERED: METO100T12 PO (07:44)
[2018-08-30] MEDS ORDERED: LOSA100T57 PO (07:44)
[2018-08-30 07:46] LABS: PROTHROMBIN TIME PATIENT 13.1 SEC (12.2-14.7)
[2018-08-30 07:56] LABS: ALANINE AMINOTRANSFERASE 25 U/L (0-55); ALBUMIN 3.9 GM/DL (3.2-4.5); ALKALINE PHOSPHATASE 49 U/L (40-136); BILIRUBIN,TOTAL 0.3 MG/DL (0.1-1.0); BUN/CREATININE RATIO 22; CALCIUM 9.6 MG/DL (8.5-10.1); CARBON DIOXIDE 20 MMOL/L (21-32); CHLORIDE 105 MMOL/L (98-107); CHOLESTEROL 251 MG/DL (< 200); CREATININE SERUM 1.26 MG/DL (0.60-1.30); GFR ESTIMATED 57; GLUCOSE 120 MG/DL (70-105); HDL CHOLESTEROL 39 MG/DL (40-60); POTASSIUM 4.5 MMOL/L (3.6-5.0); SODIUM 138 MMOL/L (135-145); TOTAL PROTEIN 6.6 GM/DL (6.4-8.2); TRIGLYCERIDES 601 MG/DL (<150)
[2018-08-30] MEDS ORDERED: fentaNYL INJECTION 100 MCG/2 ML AMP ONE (09:09)
[2018-08-30] MEDS ORDERED: MIDAZOLAM 5 MG/5 ML (VERSED) VIAL ONE (09:09)
[2018-08-30] MEDS ORDERED: NS IV 1000 ML 1,000 ML ONE (09:28)
[2018-08-30] MEDS ORDERED: NS IV 1000 ML 1,000 ML IV SCH (09:47)
--- NOTE | 2018-08-30 09:48 | Cardiac Procedure Note-CS/ASA ---
Pre-Procedure Note Pre-Op Procedure Note H&P Reviewed The H&P was reviewed, patient examined and no changes noted. Date H&P Reviewed: Aug 30, 2018 Time H&P Reviewed: 09:47 Conscious Sedation Pre-Proced Time 09:47 ASA Score 3 For ASA 3 and 4: Consider anesthesia and medical clearance. Also, for patients with a history of failed moderate sedation consider anesthesia. Airway Lungs Heart ASA score ASA 1: a normal healthy patient ASA 2: a patient with a mild systemic disease (mid diabetes, controlled hypertension, obesity ASA 3: a patient with a severe systemic disease that limits activity (angina , COPD, prior Myocardial infarction) ASA 4: a patient with an incapacitating disease that is a constant threat to life (CHF, renal failure) ASA 5: a moribund patient not expected to survive 24 hrs. (ruptured aneurysm) ASA 6: a declared brain- patient whose organs are being harvested. For emergent operations, add the letter E after the classification Mallampati Classification Grade 2 Sedation Plan Analgesia, Amnesia, Plan communicated to team members, Discussed options with patient/fam, Discussed risks with patient/fam The patient is an appropriate candidate to undergo the planned procedure, sedation, and anesthesia. The patient immediately re-assessed prior to indication. YISSEL SHOEMAKER MD FACP FAC CCDS Aug 30, 2018 09:48
[2018-08-30] MEDS ORDERED: FUROSEMIDE 40 MG/4 ML INJ (LASIX) IVP ONE (10:00)
[2018-08-30] MEDS ORDERED: PATIENT MAY USE OWN MEDS, ALL PO SCH (10:00)
--- NOTE | 2018-08-30 10:34 | Discharge Inst-Cardiology ---
Discharge Inst-Cardiac Discharge Medications Continued Medications: Acetaminophen (Tylenol Extra Strength) 500 Mg Tablet 1000 MG PO BID, TAB Allopurinol (Allopurinol) 100 Mg Tablet 100 MG PO BID, TAB Aripiprazole (Abilify) 2 Mg Tablet 2 MG PO DAILY, TAB Aspirin (Aspir 81) 81 Mg Tablet.dr 81 MG PO DAILY, TAB Atorvastatin Calcium (Atorvastatin Calcium) 80 Mg Tablet 80 MG PO HS, TAB Cholecalciferol (Vitamin D3) (Vitamin D3) 1,000 Unit Tablet 1000 UNIT PO DAILY, TAB Cyanocobalamin (Vitamin B-12) (B-12) 1,000 Mcg Tablet 1000 MCG PO DAILY, TAB Dexlansoprazole (Dexilant) 60 Mg Cap.dr.bp 60 MG PO BID, CAP Fenofibric Acid (Choline) (Fenofibric Acid) 135 Mg Capsule.dr 135 MG PO HS, CAP Fluoxetine HCl (Fluoxetine HCl) 40 Mg Capsule 40 MG PO HS, CAP Folic Acid (Folic Acid) 0.4 Mg Tablet 0.4 MG PO HS, TAB Furosemide (Furosemide) 80 Mg Tablet 80 MG PO EVERY OTHER DAY, TAB Losartan Potassium (Losartan Potassium) 100 Mg Tablet 100 MG PO DAILY, TAB Metoprolol Tartrate (Metoprolol Tartrate) 100 Mg Tablet 200 MG PO BID, TAB [place] 3 Polyunsat Fatty Acids (Fish Oil 1,000 mg Capsule) 1,000 Mg Cap 1000 MG PO BID, CAP Potassium Chloride (Potassium Chloride) 20 Meq Tab.er.prt 20 MEQ PO EVERY OTHER DAY Tramadol HCl (Tramadol HCl) 50 Mg Tablet 50 MG PO DAILY, TAB Tramadol HCl (Tramadol HCl) 50 Mg Tablet 100 MG PO HS, TAB TAKES 2 (50MG) TABLETS Trazodone HCl (Trazodone HCl) 100 Mg Tablet 50 MG PO HS, TAB TAKES 1/2 (100MG) TABLET Ubidecarenone (Co Q10) 200 Mg Capsule 200 MG PO DAILY, CAP Discontinued Medications: Metformin HCl (Metformin HCl ER) 500 Mg Tab.er.24h 500 MG PO BID WITH MEALS, TAB Patient Instructions Patient Instructions: Hold METFORMIN until the morning of 09/02/18, then resume previous home dose YISSEL SHOEMAKER MD FACP [facility] Aug 30, 2018 10:34
--- NOTE | 2018-08-30 10:35 | Discharge Inst-Post CATH ---
Discharge Inst-CATH/EP Post Cardiac Cath/EP D/C Inst Follow Up/Plan F/u with Dr Cr in 2 weeks CARDIAC CATH DISCHARGE INSTRUCTIONS *Hold Metformin for 72 hours post heart cath. ACTIVITY * Go Home directly and rest. * Limit activity of the leg (or wrist if it was used) for 7 days including aerobics, swimming, jogging, bicycling, etc. * Restrict stair-climbing for 7 days if possible, if not, climb up with your non -cath leg, then bring together on the same step. * Avoid lifting, pushing, pulling or excessive movement of the affected extremity for 7 days. * Customary sexual activity may be resumed after 2 days-use caution not to use a position that strains or causes pain to the affected extremity. * No driving for 24 hours. * NO SMOKING. * Avoid straining for bowel movements for 7 days. * Gentle walking on level ground is allowed. * Returning to work will depend on the type of procedure and the results. Your doctor will discuss this with you. CALL YOUR DOCTOR FOR ANY OF THE FOLLOWING: *If bleeding from the puncture site occurs- Apply gentle pressure to site with clean cloth and call your doctor or EMS. * If a knot or lump forms under the skin, increases in size, or causes pain. * If bruising appears to be worsening or moving further down your leg instead of disappearing. * Temperature above 101 F. CARE OF YOUR GROIN INCISION; * Bruising or purple discoloration of the skin near the puncture site is common. * You may shower only, no bathtub bathing for 5 days. Be careful to avoid slipping as your leg may feel stiff. * If a closure device was used on your femoral artery, please see the attached guide regarding care of the device and your leg. * Leave the dressing on, until removed by office staff. CARE OF YOUR WRIST INCISION; * Bruising or purple discoloration of the skin near the puncture site is common. * You may shower. * DO NOT submerge wrist. * Leave dressing on, until removed by office staff.. YISSEL CR MD [facility] CCDS Aug 30, 2018 10:35
[2018-08-30] MEDS ORDERED: FUROSEMIDE 40 MG/4 ML INJ (LASIX) ONE (10:37)
--- NOTE | 2018-08-30 10:45 | OPERATIVE REPORT ---
DATE OF SERVICE: 08/30/2018 The patient is a 63-year-old man with known coronary artery disease who has had the shortness of breath and recent hospitalizations with congestive heart failure. Cardiac catheterization was carried out after having obtained informed consent. Vigorous perioperative hydration was carried out, given the patient's renal insufficiency. PROCEDURE: He was brought to the cardiac catheterization laboratory in a fasting state. Right groin was prepared and draped in the usual sterile fashion. Lidocaine 1% for local anesthesia. Modified Seldinger technique was used to advance a 5-Bahamian sheath in the right femoral artery, 5-Bahamian JL4 catheter was used for left coronary angiography, 5-Bahamian JR4 catheter was used for right coronary angiography, 5-Bahamian pigtail catheter was used for left heart catheterization, left ventricular angiography. At the end of the procedure, the patient was transferred to the holding area for manual sheath removal. He tolerated the procedure well. HEMODYNAMICS: Left ventricular end-diastolic pressure following coronary angiography was 27 mmHg. There is no significant pressure gradient on pullback across the aortic valve. Ascending aortic pressure was 155/72 with a mean of 106 mmHg. CORONARY ANGIOGRAPHY: Left main coronary artery is free of significant disease. Left anterior descending artery has 80% to 90% bifurcation mid vessel stenosis. Left circumflex artery has 50% mid vessel stenosis. The right coronary artery has 50 to 60% proximal and 70% to 80% mid vessel stenosis. Right coronary artery is dominant. LEFT VENTRICULAR ANGIOGRAPHY: Left ventricular angiography was carried out in the right anterior oblique projection. There is mild to moderate hypokinesis of the diaphragmatic wall of the left ventricle. Left ventricular ejection fraction is approximately 50%. CONCLUSIONS: 1. Multivessel coronary artery disease as described above. This consists of 80 to 90% mid vessel bifurcation stenosis of left anterior descending, 50% mid vessel stenosis of the left circumflex and 70 to 80% mid vessel stenosis of the right coronary. 2. Elevated left ventricular end-diastolic pressure. 3. Well-preserved global left ventricular systolic function with ejection fraction approximately 50% and with mild to moderate inferior hypokinesis of the left ventricle. DISCUSSION AND RECOMMENDATIONS: Based on results of the study, the best treatment option appears to be coronary artery bypass surgery. This was discussed in detail with him and his . We are making a referral for surgery. Current cardiac regimen is being continued. Job ID: [id number] DocumentID: [id number] Dictated Date: 08/30/2018 10:26:55 Tangled Yarn Spool Straightener Date: 08/30/2018 10:44:46 Dictated By: YISSEL SHOEMAKER MD, MA, FACP, FACC, MTDD
== END 2018-08-30 15:40 | disposition home or self-care (01) ==
LOC: CATH 06:58 → SDC 10:51 → CATH 15:40
PROVIDERS: ATTEND Internal Medicine Cardiovascular Disease
DX: I25.10 Atherosclerotic heart disease of native coronary artery without angina pectoris (principal); I13.0 Hypertensive heart and chronic kidney disease with heart failure and stage 1 through stage 4 chronic kidney disease, or unspecified chronic kidney disease; I50.33 Acute on chronic diastolic (congestive) heart failure; N18.3 Chronic kidney disease, stage 3 (moderate); E11.21 Type 2 diabetes mellitus with diabetic nephropathy; E78.5 Hyperlipidemia, unspecified; Q21.1 Atrial septal defect; E87.6 Hypokalemia; G47.33 Obstructive sleep apnea (adult) (pediatric); F32.9 Major depressive disorder, single episode, unspecified; E66.9 Obesity, unspecified; Z68.35 Body mass index [BMI] 35.0-35.9, adult; Z79.82 Long term (current) use of aspirin; Z79.84 Long term (current) use of oral hypoglycemic drugs; Z79.899 Other long term (current) drug therapy
CPT/HCPCS: 36415; 80053; 80061; 85027; 85610; 85730; 87081; 93005; 93458

== ENCOUNTER → 2018-09-02 | Outpatient (CLI) | payer OTHER, MEDICARE ==
[~2018-09-02] MED LIST changes: +FURO80TA3 PO; -HEParin (CATH LAB) 2,000 ML IV ONE; -LIDOCAINE 1% INJ 20 ML 20 ML VIAL ONE; +METO100T12 PO; -NS IV 1000 ML 1,000 ML ONE
--- NOTE | 2018-09-02 11:29 | Diagnostic Imaging Report ---
INDICATION: Soft tissue ulcer of the foot. COMPARISON: None. FINDINGS: Three views of the right foot demonstrate no acute fracture or dislocation. There are no focal osseous lesions. There is no soft tissue swelling. Joint spaces are well maintained. No radiopaque foreign bodies are seen. IMPRESSION: 1. No acute abnormalities of the right foot are identified. Please note, osteomyelitis cannot be excluded based on radiographs alone. If there is concern for osteomyelitis, MRI is recommended. Dictated by: Dictated on workstation # [id number]
== END ==
LOC: RAD 10:03
PROVIDERS: ATTEND Surgery
DX: L97.519 Non-pressure chronic ulcer of other part of right foot with unspecified severity (principal)
CPT/HCPCS: 73630

== ENCOUNTER → 2018-09-02 | Outpatient (CLI) | payer OTHER, MEDICARE | LOC: WOUNDCARE 08:04 | PROVIDERS: ATTEND Surgery | DX: E11.621 Type 2 diabetes mellitus with foot ulcer (principal); E11.42 Type 2 diabetes mellitus with diabetic polyneuropathy; L97.512 Non-pressure chronic ulcer of other part of right foot with fat layer exposed; I25.119 Atherosclerotic heart disease of native coronary artery with unspecified angina pectoris | CPT/HCPCS: 11042; 87070; 87075; 87077; 87205 ==

== ENCOUNTER → 2018-09-07 | Outpatient (CLI) | payer OTHER, MEDICARE | LOC: WOUNDCARE 09:55 | PROVIDERS: ATTEND Surgery | DX: E11.621 Type 2 diabetes mellitus with foot ulcer (principal); L97.512 Non-pressure chronic ulcer of other part of right foot with fat layer exposed; E11.42 Type 2 diabetes mellitus with diabetic polyneuropathy; I25.119 Atherosclerotic heart disease of native coronary artery with unspecified angina pectoris | CPT/HCPCS: 11042 ==

== ENCOUNTER 2018-09-22 09:19 | Inpatient (IN) | payer OTHER, MEDICARE ==
[~2018-09-22] VITALS: Ht 182.9 cm; Wt 117.9 kg
--- NOTE | 2018-09-22 14:10 | NUR ---
Pt admitted to room 230, with an admitting diagnosis of S/P CVA, from [facility], via w/c, accompanied by , & son. DWIGHT MAC introduced to surroundings, call light, bed controls, phone, TV, temperature control, lights, meal times, smoking policy, visitor policy, side rail policy, bathrooms and showers. Patient Rights given to patient in the handbook. DWIGHT MCA verbalizes understanding that [facility] is not responsible for the loss or damage to any personal effects or valuables that are kept in the patients posession during their hospitalization. The following Patient Care Plans were discussed with the pt: Discharge Planning, Impaired Mobility, Self Care Deficit, Potential for fall/injury. DWIGHT MAC verbalizes understanding of Interdisciplinary Patient Education. Patient and/or family were informed about the Rapid Response Team and its purpose. Patient received Patient Rights Booklet, which includes Privacy Act Statement and Data Collection Information Summary.
--- NOTE | 2018-09-22 15:05 | Consultation-Cardiology ---
HPI-Cardiology Cardiology Consultation: Date of Consultation 09/22/18 Time Seen by a Provider: 15:50 Date of Admission 09-22-18 Attending Physician Rowena Barrios DO Admitting Physician Anni Askew MD Consulting Physician Debbie Cr MD HPI: Chief Complaint: S/P CABG Mr. Alas is a 63 year old male admitted to [facility] 230 from [place], [place] after undergoing CABG on 09-13-18. His spouse is at the bedside. She reports he has a several issues following his CABG. He is currently sitting up in a chair at the bedside. He currently reports no c/o CP, incision pain, dyspnea or palpitations. He does have swelling in his bilat LE, which is gradually improving. Review of Systems-Cardiology Review of Systems Constitutional: No chills, No fever; malaise Eyes: No vision change Ears/Nose/Throat: No epistaxis, No recent hearing loss Respiratory: As described under HPI Cardiovascular: As described under HPI Gastrointestinal: No constipation, No diarrhea, No nausea, No vomiting Genitourinary: No dysuria, No hematuria Musculoskeletal: no symptoms reported Skin: No rash, No ulcerations Psychiatric/Neurological: seizure (post operative); No focal weakness, No syncope Hematologic: No bleeding abnormalities URA-Axobnr-Zgqbig Hx Patient Social History Former smoker/When Quit: Sep 13, 1974 Type Used: Smokeless Tobacco 2nd Hand Smoke Exposure: No Recent Foreign Travel: No Recent Infectious Disease Expo: No Immunizations Up To Date Tetanus Booster (TDap): More than 5yrs Date of Pneumonia Vaccine: Aug 14, 2017 Date of Influenza Vaccine: Apr 25, 2018 Past Medical History PMH As described under Assessment. Family Medical History Family Medical History: He does not report fam h/o early CAD or SCE Family History: Cardiovascular disease 19 FATHER 19 MOTHER Diabetes mellitus 19 FATHER 19 MOTHER G8 BROTHER Hypertension 19 FATHER Allergies and Home Medications Allergies Coded Allergies: No Known Drug Allergies (Verified , 05/19/08) Uncoded Allergies: [id number] (HAYFEVER) (Allergy, Mild, 12/21/08) Home Medications Albuterol Sulfate 2.5 Mg/3 Ml Vial.neb, 2.5 MG NEB Q6H PRN for SHORTNESS OF BREATH, (Reported) Amiodarone HCl 200 Mg Tablet, 200 MG PO DAILY, (Reported) Amlodipine Besylate 10 Mg Tablet, 10 MG PO DAILY, (Reported) Ammonium Lactate 385 Gm Cream..g., TP BID, (Reported) Apixaban 5 Mg Tablet, 5 MG PO BID, (Reported) Aripiprazole 2 Mg Tablet, 2 MG PO DAILY, (Reported) Aspirin 81 Mg Tab.chew, 81 MG PO DAILY, (Reported) Atorvastatin Calcium 40 Mg Tablet, 40 MG PO HS, (Reported) Fluoxetine HCl 40 Mg Capsule, 40 MG PO DAILY, (Reported) Furosemide 80 Mg Tablet, 80 MG PO Q48H, (Reported) Honey 15 Ml Gel..ml., TP Q48H, (Reported) Levetiracetam 500 Mg Tablet, 500 MG PO BID, (Reported) Metoprolol Tartrate 50 Mg Tablet, 75 MG PO BIDPC, (Reported) TAKE 1 & 1/2 (50MG) TABLETS Multivitamin 1 Each Tablet, 1 TAB PO DAILY, (Reported) Pantoprazole Sodium 40 Mg Tablet.dr, 40 MG PO DAILY, (Reported) Polyethylene Glycol 3350 17 Gm Powd.pack, 17 GM PO DAILY PRN for CONSTIPATION- 2ND LINE, (Reported) Potassium Chloride 10 Meq Capsule.er, 20 MEQ PO Q48H, (Reported) TO BE GIVEN WITH FUROSEMIDE ONLY TAKES 2 (10MEQ) CAPSULES Tramadol HCl 50 Mg Tablet, 50 MG PO Q6H PRN for PAIN-MODERATE, (Reported) Patient Home Medication List Home Medication List Reviewed: Yes Physical Exam-Cardiology Physical Exam Vital Signs/I&O 09/23/18 09/23/18 09/23/18 09/23/18 01:00 06:00 07:00 08:00 Temp 97.4 Pulse 59 71 70 Resp 20 B/P (MAP) 143/86 (105) Pulse Ox 97 O2 Delivery Room Air Room Air Capillary Refill : Constitutional: AAO x 3, well-developed, well-nourished HEENT: hearing is well preserved, oral hygience is good Neck: No carotid bruit; carotid pulses are 2 + bilaterally Respiratory: chest expansion is symmetric, chest is bilaterally symmetric, lungs clear to auscultation; No rhonchi, No wheezing Cardiovascular: regular rate-rhythm; No JVD; S1 and S2 Gastrointestinal: round, audible bowel sounds Extremities: swelling (bilat LE swelling) Neurologic/Psychiatric: grossly intact, power is 5/5 both on sides Skin: other (ACW mid-line incision with edges approx, no redness or drainage; RLE with incisions with rose in place, no drainage or redness noted) Data Review Labs Laboratory Tests 09/23/18 06:00: White Blood Count 10.1, Red Blood Count 3.30L, Hemoglobin 8.9L, Hematocrit 28L, Mean Corpuscular Volume 86, Mean Corpuscular Hemoglobin 27, Mean Corpuscular Hemoglobin Concent 31L, Red Cell Distribution Width 14.3, Platelet Count 510H, Mean Platelet Volume 8.9, Sodium Level 135, Potassium Level 4.3, Chloride Level 101, Carbon Dioxide Level 22, Anion Gap 12, Blood Urea Nitrogen 18, Creatinine 1.16, Estimat Glomerular Filtration Rate > 60, BUN/Creatinine Ratio 16, Glucose Level 102, Calcium Level 9.6, Corrected Calcium 10.3H, Magnesium Level 1.6L, Total Bilirubin 0.6, Aspartate Amino Transf (AST/SGOT) 29, Alanine Aminotransferase (ALT/SGPT) 53, Alkaline Phosphatase 119, Total Protein 6.0L, Albumin 3.1L, Thyroid Stimulating Hormone (TSH) 5.72H Lab reviewed from [place], [place] A/P-Cardiology Assessment/Admission Diagnosis Multivessel coronary artery disease per cardiac cath of 08-30-18. This consists of 80 to 90% mid vessel bifurcation stenosis of left anterior descending, 50% mid vessel stenosis of the left circumflex and 70 to 80% mid vessel stenosis of the right coronary. Elevated left ventricular end-diastolic pressure. Well- preserved global left ventricular systolic function with ejection fraction approximately 50% and with mild to moderate inferior hypokinesis of the left ventricle. For which he underwent CABG on 09-13-[address] Cantu at [facility] in [place], [place] consisting of grafts x 4 with non-reversed saphenous vein grafts to the diagonal, ramus marginalis and posterior descending branch of the RCA arteries and the left internal thoracic artery graft to the anterior descending coronary artery. P. A-fib post CABG for which he was started on Amiodarone - converted to SR Eliquis for stroke prophylaxis H/O postoperative acute encephalopathy H/O seizures post CABG for which he was started on Keppra Episode of left sided paralysis for which he was transferred to [place], [place] d/t inability to obtain CTA at [place], [place]. CT of head without contrast is reported to show no acute intracranial abnormality, cerebral atrophy with periventricular chronic ischemic changes on note 09-16-[address] Mesa of neurology services at [facility]. 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 Symptoms have resolved. Echocardiogram of 09-19-18 at [facility] in [place], [place] by Dr. Powell showed LVEF 50-55%. Aortic valve thickening with mod to mod regurg. Possible, very small pericardial effusion. H/O blood transfusion reaction following CABG Echo on 06/23/18: LVEF 55-60%, Mild AI, PASP 35 mmHg, normal right heart size. Small ASD is reported on an echo of 08/14/14. WEI of 09-13-2014 is suggestive of a small PFO with a small amount of left to right shunt. LVEF 50%. Trivial to mild TR. Cardiac cath of 09-18-2014 showed no evidence of intracardiac shunt. LVEF 60%. Normal LVEDP H/O acute diastolic CHF in Jun 2018 Venous duplex of Jun 23, 2018 showed no evidence of DVT VQ lung scan of Jun 23, 2018 showed low probability of PE DM II with h/o diabetic nephropathy and CKD 3 Bilateral leg swelling Hypertension with LVH on surface ECG Obesity with BMI approx 36 Hyperlipidemia, difficult control despite combination therapy with atorvastatin and fenofibric acid Chronic joint and back pain due to DJD Larios's esophagitis Discussion and Recomendations Complex hospitalization following CABG We have reviewed records from [place], [place] and spoke with his spouse in detail Continue current medications including ASA, Eliquis, Amiodarone, BB, statin, Norvasc and diuretics along with potassium replacement Monitor lab closely We would like to thank medical services for this consult Further recs will be based on his hospital course Clinical Quality Measures DVT/VTE Risk/Contraindication: Risk Factor Score Per Nursin RFS Level Per Nursing on Admit: 4+=Very High TRACIE JOHNSON Sep 22, 2018 15:05
[2018-09-22] MEDS ORDERED: CALCIUM CARBONATE 500 MG (TUMS) TAB.CHEW PO PRN (15:15)
[2018-09-22] MEDS ORDERED: MELATONIN 3 MG TABLET PO PRN (15:15)
[2018-09-22] MEDS ORDERED: ONDANSETRON 4 MG (ZOFRAN) ORAL DISSOLVE TAB PO PRN (15:15)
[2018-09-22] MEDS ORDERED: POLYETHYLENE GLYCOL 17 GM (MIRALAX) PACK PO PRN (15:15)
[2018-09-22] MEDS ORDERED: DOCUSATE SODIUM 100 MG (COLACE) CAP PO PRN (15:15)
[2018-09-22] MEDS ORDERED: ONDANSETRON 4 MG/2 ML (SDV) Z0FRAN IVP PRN (15:15)
[2018-09-22] MEDS ORDERED: HYDROcodone/APAP 5 MG/325 MG (LORTAB) TAB PO PRN (15:15)
[2018-09-22] MEDS ORDERED: ALPRAZolam 0.25 MG (XANAX) TAB PO PRN (15:15)
[2018-09-22] MEDS ORDERED: POTA10CA43 PO (15:22)
[2018-09-22] MEDS ORDERED: AMIO200T4 PO (15:22)
[2018-09-22] MEDS ORDERED: AMLO10TA7 PO (15:22)
[2018-09-22] MEDS ORDERED: METO50TA15 PO (15:22)
[2018-09-22] MEDS ORDERED: ATOR40TA70 PO (15:22)
[2018-09-22] MEDS ORDERED: POLY17PO6 PO (15:22)
[2018-09-22] MEDS ORDERED: ASPI-999 PO (15:22)
[2018-09-22] MEDS ORDERED: LEVE500T99 PO (15:22)
[2018-09-22] MEDS ORDERED: MULT1TAB65 PO (15:22)
[2018-09-22] MEDS ORDERED: ALBU2.5V4 NEB (15:22)
[2018-09-22] MEDS ORDERED: PANT40TA2 PO (15:22)
[2018-09-22] MEDS ORDERED: HONE15GE TP (15:22)
[2018-09-22] MEDS ORDERED: AMMO385C5 TP (15:22)
[2018-09-22] MEDS ORDERED: APIX5TAB PO (15:22)
--- NOTE | 2018-09-22 15:27 | NUR ---
UPDATED MED REC TO THE LIST OF MEDICATIONS ORDERED AT DISCHARGE FROM [facility] AT THIS TIME.
--- NOTE | 2018-09-22 15:34 | Physical Therapy Evaluation ---
PT Evaluation-General Medical Diagnosis Admission Date Sep 22, 2018 at 14:10 Medical Diagnosis: CABG x 4; right sided weakness Onset Date: Sep 22, 2018 Therapy Diagnosis Therapy Diagnosis: weakness; abn gait Height/Weight Height (Feet): 6 Height (Inches): 0.00 Weight (Pounds): 265 Weight (Ounces): 0.0 Precautions Precautions/Isolations: Seizure, Fall Prevention, Standard Precautions, Pressure Ulcer Weight Bear Status Right Lower Extremity: Right Full Weight Bearing Left Lower Extremity: Left Full Weight Bearing Sternal precautions Referral Physician: Denis Reason for Referral: Evaluation/Treatment Medical History Pertinent Medical History: Atrial Fib, Alcoholism, CABG (x4), CAD, DM, GERD, HTN Additional Medical History gout, depression, acute kidney injury Current History Pt had an extensive acute hospital stay due to CAD that required a CABG. Post CABG x 4 with following right sided weakness. Seizure activity. Pt transferred to this facility for continued medical management and skilled therapy services. Reviewed History: Yes Social History Home: Multilevel (pt able to stay on the main level) Current Living Status: Spouse Entry Into Home: Stairs Without Railing PT Steps Into Home: 3 Prior/Core FIM Prior Level of Function Therapy Code Descriptions/Definitions Functional [place] Measure: 0=Not Assessed/NA 4=Minimal Assistance 1=Total Assistance 5=Supervision or Setup 2=Maximal Assistance 6=Modified [place] 3=Moderate Assistance 7=Complete [place] Therapy Quality Codes: 6 Independent with activity with or without an assistive device 5 Patient requires set up or clean up by helper. Patient completes activity by themselves 4 Supervision or touching assist (CGA). Loleta provide cues , steadying assist 3 The helper provides less than half the effort to complete the activity 2 The helper provides more than half the effort to complete the activity 1 Dependent. The helper does all the effort to complete an activity 7 Patient refused to complete or attempt activity 9 The patient did not perform the activity before the current illness or injury 88 Not attempted due to Medical conditions or safety concerns Functional Abilities and Goals: Independent: Patient completed the activities by him/herself, with or without an assistive device, with no assistance from a helper. Needed Some Help: Patient needed partial assistance from another person to complete activities. Dependent: A helper completed the activities for the patient. Unknown: Not Applicable: Bed Mobility: 7 Transfers (B,C,W/C) (FIM): 7 Gait: 7 Stairs: 7 Indoor Mobility (Ambulation): Independent Stairs: Independent Pt active with yard care, gardening and driving. Community ambulator. PT Evaluation-Current Subjective Agrees to PT evaluation and treatment. Pt does report that he is tired from his trip here today. Pain Numeric Pain Scale: 0-No Pain Location: No Pain Reported Pt/Family Goals Pt reports his goal is to return home and care for himself; he reports he plans to return to all his prior activities as he is able. Objective Patient Orientation: Person, Place, Time, Situation Problem Solving: Good ROM/Strength ROM Lower Extremities WNL Strenght Lower Extremities R L E strength is grossly 4-/5; left LE strength is grossly 5/5 Integumentary/Posture Integumentary Intact Bowel Incontinence: No Bladder Incontinence: No Posture symmetrical and upright posture. Neuromuscular (Tone, Coordination, Reflexes) Left side is all WNL; right LE coordination is impaired as is coordination with intentional movement. Sensory Vision: Wears Glasses Hearing: Functional Hand Dominance: Right Sensation Right Lower Extremit: Impaired (to light touch) Sensation Left Lower Extremity: Intact Transfers Therapy Code Descriptions/Definitions Functional [place] Measure: 0=Not Assessed/NA 4=Minimal Assistance 1=Total Assistance 5=Supervision or Setup 2=Maximal Assistance 6=Modified [place] 3=Moderate Assistance 7=Complete [place] Therapy Quality Codes: 6 Independent with activity with or without an assistive device 5 Patient requires set up or clean up by helper. Patient completes activity by themselves 4 Supervision or touching assist (CGA). Loleta provide cues , steadying assist 3 The helper provides less than half the effort to complete the activity 2 The helper provides more than half the effort to complete the activity 1 Dependent. The helper does all the effort to complete an activity 7 Patient refused to complete or attempt activity 9 The patient did not perform the activity before the current illness or injury 88 Not attempted due to Medical conditions or safety concerns Transfers (B, C, W/C) (FIM): 2 Roll Left to Right (QC): 4 (tactile cues and verbal cues for sequencing) Supine to/from Sit: 2 (assist with both legs and to control trunk to lie down) Sit to/from Stand: 3 (mod assist as he is unable to push up with his arms due to sternal precautions) Sit to Lying (QC): 2 Lying to Sitting/Side of Bed(Q: 3 Sit to Stand (QC): 3 Chair/Mdw-uy-Tvebw Xfer(QC): 4 Car Transfer (QC): 4 Pt is limited due to sternal precautions. Gait Does the Patient Walk?: Yes Mode of Locomotion: Walk Anticipated Mode of Locomotion: Walk Gait (FIM): 2 Distance (FIM): 2=230-07 ft Walk 10 feet (QC): 4 Walk 50 ft with 2 Turns(QC): 4 Walk 150 ft (QC): 88 Walking 10ft/uneven surface-QC: 4 Distance: 100 ft Gait Level of Assist: 4 (CGA with skilled cues for foot (R) placement with gait ; slightly uncoordinated placement. ) Gait Persons Needed: 1 Gait Assistive Device: FWW Comments/Gait Description narrow TEJA, relies on FWW; uncoordinated placement right LE; CGA for safety. Tends to keep his head down to watch his feet; cautious with slow lacey. Wheelchair Training Does the Pt Use a Wheelchair?: No Stairs Stairs (FIM): 2 #of Steps: 1 Level of Assist: 4 (CGA with skilled cues for sequencing. ) 1 Step (curb) (QC): 4 4 Steps (QC): 88 Assistive Device: Walker 12 Steps (QC): 88 Balance Sitting Static: Good Sitting Dynamic: Good Standing Static: Fair Standing Dynamic: Fair Picking up an Object (QC): 88 Treatment Co Treat with OT due to need for skilled cues from each discipline to effectively complete tasks. OT addressed use and technique of UE use for ADL tasks as PT addressed safety with transfers, functional balance and transfer techniques to maintain sternal precautions. Pt completed showering and dressing with the skill of 2 clinicians required as OT assisted with self care as PT addressed gross motor function with transfers on varied surfaces and safety with gait. Assessment/Needs Pt presents with residual right sided weakness and decreased coordinated movement right side due to recent medical issues. He is impaired with functional transfers and gait with limited functional activity tolerance as well. He will benefit from skilled PT services to address these deficits to progress to a mod indep level and allow him to return home as he was before. He is cooperative and motivated with supportive family. Rehab Potential: Good PT Short Term Goals Short Term Goals Time Frame: Sep 29, 2018 Transfers (B,C,W/C) (FIM): 4 Gait (FIM): 4 Distance (FIM): 3=150 ft Gait Assistive Device: FWW Stairs (FIM): 2 # of Steps: 4 PT Boarding Machine Operator Goals Boarding Machine Operator Goals PT Boarding Machine Operator Goals Time Frame: Oct 06, 2018 Transfers (B,C,W/C) (FIM): 7 Sit to Lying (QC): 6 Lying-Sitting on Side/Bed(QC): 6 Sit to Stand (QC): 6 Roll Left to Right (QC): 6 Chair/Kzj-ux-Eypbs Xfer(QC): 6 Car Transfer (QC): 6 Does the Patient Walk: Yes Gait (FIM): 6 Gait distance (FIM): 3=150 ft Distance: 300 ft Walk 10 feet (QC): 6 Walk 10ft-Uneven Surface(QC): 6 Walk 50ft with 2 Turns (QC): 6 Walk 150 ft (QC): 6 Gait Assistive Device: FWW Does the Pt use WC or Scooter?: No Stairs (FIM): 6 # of Steps: 12 1 Step (curb) (QC): 6 4 Steps (QC): 6 12 Steps (QC): 6 Picking up an Object (QC): 4 (use of a cyber security administrator) PT Plan Problem List Problem List: Activity Tolerance, Functional Strength, Safety, Balance, Gait, Transfer, Bed Mobility Treatment/Plan Treatment Plan: Continue Plan of Care Treatment Plan: Bed Mobility, Education, Functional Activity Donovan, Functional Strength, Group Therapy, Gait, Safety, Therapeutic Exercise, Transfers Treatment Duration: Oct 06, 2018 Frequency: Modified Program (IRF) Estimated Hrs Per Day: 1.5 hours per day Patient and/or Family Agrees t: Yes Safety Risks/Education Patient Education: Gait Training, Safety Issues Teaching Recipient: Patient Teaching Methods: Demonstration, Discussion Response to Teaching: Reinforcement Needed Time/GCodes Time In: 1415 Time Out: 1425 ([id number]) Total Billed Treatment Time: 60 Total Billed Treatment visit EVM 10 FA 50 (co treat with OT) JUAN WILKINS PT Sep 22, 2018 15:34
[2018-09-22] MEDS ORDERED: NON-FORMULARY MEDICATION 1 EA EA (Polyethylene Glycol 3350 (Miralax) 17 GM) PO PRN (15:45)
--- NOTE | 2018-09-22 16:11 | Occupational Therapy Eval ---
OT Evaluation-General/PLF Medical Diagnosis Admission Date Sep 22, 2018 at 14:10 Medical Diagnosis: CABG x 4; right sided weakness Onset Date: Sep 22, 2018 Therapy Diagnosis Therapy Diagnosis: Weakness Height/Weight Height (Feet): 6 Height (Inches): 0.00 Weight (Pounds): 265 Weight (Ounces): 0.0 Precautions Precautions/Isolations: Seizure, Fall Prevention, Standard Precautions, Pressure Ulcer Weight Bear Status Weight Bearing Restriction: Weight Bearing/Tolerated Referral Physician: Denis Referral Reason: Activity Tolerance, Self Care, Evaluation/Treatment, Strengthening/ROM Medical History Pertinent Medical History: Atrial Fib, Alcoholism, CABG (x4), CAD, CVA, DM, GERD, HTN Additional Medical History Hypoxia, acute encephalopathy Current History Pt. had CABG procedure. Began to demonstrate weakness on right side. Reviewed History: Yes Social History Home: Multilevel (pt able to stay on the main level) Current Living Status: Spouse Entry Into Home: Stairs Without Railing Steps Into Home: 3 ADL-Prior Level of Function Therapy Code Descriptions/Definitions Functional Gilliam Measure: 0=Not Assessed/NA 4=Minimal Assistance 1=Total Assistance 5=Supervision or Setup 2=Maximal Assistance 6=Modified Gilliam 3=Moderate Assistance 7=Complete Gilliam Therapy Quality Codes: 6 Independent with activity with or without an assistive device 5 Patient requires set up or clean up by helper. Patient completes activity by themselves 4 Supervision or touching assist (CGA). [place] provide cues , steadying assist 3 The helper provides less than half the effort to complete the activity 2 The helper provides more than half the effort to complete the activity 1 Dependent. The helper does all the effort to complete an activity 7 Patient refused to complete or attempt activity 9 The patient did not perform the activity before the current illness or injury 88 Not attempted due to Medical conditions or safety concerns Functional Abilities and Goals: Independent: Patient completed the activities by him/herself, with or without an assistive device, with no assistance from a helper. Needed Some Help: Patient needed partial assistance from another person to complete activities. Dependent: A helper completed the activities for the patient. Unknown: Not Applicable: ADL PLOF Comments Pt. was independent with daily tasks. Self Care: Independent Functional Cognition: Independent DME/Equipment: Shower Drive Self: Yes OT Current Status Subjective Pt. does state that he has some soreness in chest with active movement. Nursing aware. Appearance Pt. alert and oriented. Agrees to work with therapy. Mental Status/Objective Patient Orientation: Person, Place, Time, Situation Current Hand Dominance: Right Upper Extremity ROM Unable to fully assess due to sternal precautions. Pt. unable to lift arms above 90 degrees at shoulder level. Upper Extremity Coordination impaired on right side. Pt. states that he just "fumbles" items. Upper Extremity Sensation Intact with light touch. However, pt. states that it just "feels off." ADL-Treatment Bathing (FIM): 3 (Pt. requires assistance to wash bilateral feet and rear amita area in shower.) Shower/Bathe Self (QC): 3 Upper Body Dressing (FIM): 4 Upper Body Dressing (QC): 4 Lower Body Dressing (FIM): 2 (Max assist to doff/don socks, shoes, underwear and pants.) Lower Body Dressing (QC): 2 On/Off Footwear (QC): 1 Transfers (B, C, W/C) (FIM): 3 (Mod assist for sit-stand.) Shower Transfer (FIM): 4 Other Treatments OT/PT co-treat due to pt's fatigue level from transfer. OT focused on ADL training and PT assessed transfers and LE strength. Pt. demonstrates weakness overall and decreased endurance. Tolerated treatment well however, and is motivated. Education OT Patient Education: Correct positioning, Modified ADL techniques, Progress toward Goal/Update tx plan, Purpose of tx/functional activities, Reviewed precautions, Rehab process, Transfer techniques Teaching Recipient: Patient, Family Teaching Methods: Demonstration, Discussion Response to Teaching: Verbalize Understanding, Return Demonstration OT Short Term Goals Short Term Goals Time Frame: Sep 29, 2018 Eating(FIM): 5 Grooming(FIM): 5 Bathing(FIM): 4 Upper Body Dressing(FIM): 5 Lower Body Dressing(FIM): 4 Toileting(FIM): 4 Transfers (B,C,W/C) (FIM): 5 Toilet/Commode Transfer(FIM): 5 Shower Transfer(FIM): 5 1=Demonstrate adherence to instructed precautions during ADL tasks. 2=Patient will verbalize/demonstrate understanding of assistive devices/ modifications for ADL. 3=Patient will improve strength/tolerance for activity to enable patient to perform ADL's. OT Detention Goals Detention Goals Time Frame: Oct 06, 2018 Eating (FIM): 6 Eating (QC): 6 Groomin Oral Hygiene (QC): 6 Bathing(FIM): 5 Shower/Bathe Self (QC): 5 Upper Body Dressing(FIM): 6 Upper Body Dressing (QC): 6 Lower Body Dressing(FIM): 6 Lower Body Dressing (QC): 6 On/Off Footwear (QC): 6 Toileting(FIM): 6 Toileting Hygiene (QC): 6 Transfers (B,C,W/C) (FIM): 6 Toilet/Commode Transfer(FIM): 6 Toilet/Commode Transfer (QC): 6 Shower Transfer(FIM): 5 Additional Goals: 1-Demonstrate ADL Tasks, 2-Verbalize Understanding, 3- ImproveStrength/Donovan 1=Demonstrate adherence to instructed precautions during ADL tasks. 2=Patient will verbalize/demonstrate understanding of assistive devices/ modifications for ADL. 3=Patient will improve strength/tolerance for activity to enable patient to perform ADL's. OT Education/Plan Problem List/Assessment Assessment: Decreased Activ Tolerance, Decreased UE Strength, Dependent Transfers, Impaired Funct Balance, Impaired I ADL's, Impaired Self-Care Skills, Restricted Funct UE ROM Discharge Recommendations Plan/Recommendations: Continue POC Therapy D/C Recommendations: Home w/ Family Support, Occupational Therapy Home Care Equpiment Recommendations-D/C: Bath Chair, Hip Kit Treatment Plan/Plan of Care Treatment,Training & Education: Yes Patient would benefit from OT for education, treatment and training to promote independence in ADL's, mobility, safety and/or upper extremity function for ADL' s. Plan of Care: ADL Retraining, Caregiver Training, Functional Mobility, Group Exercise/Act as Ind, UE Funct Exercise/Act Treatment Duration: Oct 06, 2018 Frequency: At least 5 of 7 days/Wk (IRF) Estimated Hrs Per Day: 1.5 hours per day Agreement: Yes Rehab Potential: Good Time/GCodes Start Time: 14:15 Stop Time: 15:25 Total Time Billed (hr/min): 60 Billed Treatment Time 1899-8446 PT eval, no charge [id number] OT eval 1, EVM x 10 minutes [id number] FA x 50minutes co-treat. Please see note for designated roles. GAURANG RITCHIE OT Sep 22, 2018 16:11
[2018-09-22 17:05] VITALS: BP 130/86
--- NOTE | 2018-09-22 18:09 | History & Physical-Hospitalist ---
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 Pond at [facility]. Apparently he had bleeding in his chest tube shortly after his bypass surgery and hemoglobin decreased to 7 from baseline 14 and patient was managed aggressively and given transfusions and then 2 days later had been doing well but suffered a new onset seizure neurology was consulted and he was placed on Keppra but then had an abrupt episode of right-sided weakness and assumed it was a stroke in CT scanner was down and unavailable so he was transferred to [facility] for CT scan and possibility of a TPA and that test was done and no evidence of any thrombosis so he was admitted there on the neurosurgery unit monitor closely and patient appeared to regain function of the right hand and right foot that was unusual after suffering a stroke so 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 Patient overall is doing well reports the pain is from the bypass graft and sternotomy and is able to get by with Tylenol and Ultram. He does use CPAP machine at night and is able to take 2 Tylenol and Ultram and get a good night' s rest. Bowel function is normal and urination is normal. He had side effects from narcotics and benzodiazepines so will be held. did mention that he has drank a lot of alcohol for the last many years and she thought it was resolved but it appears that he was drinking regularly when she did not realize it and this seizure could very well have been a withdrawal from alcohol seizure so we will keep that in mind but maintained on Keppra. He also had an episode of atrial fibrillation following bypass surgery placed on amiodarone and patient is doing well from that standpoint. Dr. Cr will be consulted. Source: patient, family, RN/MD, old records Exam Limitations: no limitations Date Seen 09/22/18 Time Seen by a Provider: 18:00 Attending Physician Rowena Barrios Holly R MD Referring Physician Date of Admission Sep 22, 2018 at 14:10 Home Medications & Allergies Home Medications Reviewed patient Home Medication Reconciliation performed by pharmacy medication reconciliations certified veterinary technician and/or nursing. Patients Allergies have been reviewed. Allergies Allergies Coded Allergies No Known Drug Allergies (Fupblcix75/25/08) Uncoded Allergies [id number] (HAYFEVER) ( Allergy, Mild, 12/21/08) Past Psyvigm-Uakbnu-Lldagh Hx Past Med/Social Hx: Reviewed Nursing Past Med/Soc Hx, Reviewed and Corrections made Patient Social History Marrital Status: Employed/Student: retired ([employer] 20 yrs) Alcohol Use: Regular Use Alcohol Beverage of Choice: Beer Recreational Drug Use: No Smoking Status: Former Smoker Former Smoker, Quit: Jun 03, 1981 Type Used: Smokeless Tobacco 2nd Hand Smoke Exposure: No Physical Abuse Screen: No Sexual Abuse: No Recent Foreign Travel: No Contact w/other who traveled: No Recent Hopitalizations: Yes Recent Infectious Disease Expo: No Immunizations Up To Date Tetanus Booster (TDap): More than 5yrs Pediatric: Yes Date of Pneumonia Vaccine: Aug 14, 2017 Date of Influenza Vaccine: Apr 25, 2018 Seasonal Allergies Seasonal Allergies: Yes Past Medical History Surgeries: CABG, Orthopedic, Tonsillectomy Respiratory: Sleep Apnea Currently Using CPAP: Yes Currently Using BIPAP: No Cardiac: Atrial Fibrillation, Chronic Edema/Swelling, Coronary Artery Disease, High Cholesterol, Hypertension Neurological: Stroke (versus Beny's paralysis) Reproductive: No Sexually Transmitted Disease: No HIV/AIDS: No Genitourinary: Benign Prostatic Hyperpl Gastrointestinal: Gastroesophageal Reflux, Larios's Esophagus, Hiatal Hernia Musculoskeletal: Degenerate Disk Disease, Arthritis, Chronic Back Pain, Gout Endocrine: Diabetes, Non-Insulin dep Are Your Blood Sugars Over 250: No Loss of Vision: Denies Hearing Impairment: Denies Psychosocial: Depression History of Blood Disorders: No Adverse Reaction to Blood [place]: Yes (fever-lab stated he had an adverse reaction ) Family History Cardiovascular disease 19 FATHER 19 MOTHER Diabetes mellitus 19 FATHER 19 MOTHER G8 BROTHER Hypertension 19 FATHER Review of Systems Constitutional: see HPI, dizziness, malaise, weakness EENTM: no symptoms reported Respiratory: short of breath Cardiovascular: chest pain (chest wall pain from CABG surgery) Gastrointestinal: no symptoms reported Genitourinary: no symptoms reported Musculoskeletal: back pain Skin: no symptoms reported Psychiatric/Neurological: No Symptoms Reported All Other Systems Reviewed Negative Unless Noted: Yes Physical Exam Physical Exam Vital Signs Vital Signs - First Documented 09/22/18 09/22/18 16:43 17:05 Temp 97.6 Pulse 65 Resp 18 B/P (MAP) 130/86 (101) Pulse Ox 98 O2 Delivery Room Air Capillary Refill : Height, Weight, BMI Height: 6'0.00" Weight: 260lbs. 0.0oz. [id number]; 35.3 BMI Method:Stated General Appearance: No Apparent Distress, WD/WN, Chronically ill, Obese Eyes: Right Eye Normal Inspection, Right Eye PERRL HEENT: PERRL/EOMI, Normal ENT Inspection, Pharynx Normal, Moist Mucous Membranes Neck: Full Range of Motion, Normal Inspection, Non Tender Respiratory: Chest Non Tender, Lungs Clear, Normal Breath Sounds, No Accessory Muscle Use, No Respiratory Distress, Decreased Breath Sounds, Other (decreased excusion) Cardiovascular: Regular Rate, Rhythm, No Edema, No Gallop, No JVD, No Murmur, Normal Peripheral Pulses Gastrointestinal: Normal Bowel Sounds, No Organomegaly, No Pulsatile Mass, Non Tender, Soft Back: Normal Inspection, No CVA Tenderness, No Vertebral Tenderness, Decreased Range of Motion Extremity: Normal Capillary Refill, Normal Inspection, Normal Range of Motion, Non Tender, No Calf Tenderness, No Pedal Edema Neurologic/Psychiatric: Alert, Oriented x3, No Motor/Sensory Deficits, Normal Mood/Affect Skin: Normal Color, Warm/Dry Lymphatic: No Adenopathy Results Results/Procedures Labs Laboratory Tests 09/23/18 06:00 Patient resulted labs reviewed. Assessment/Plan Admission Diagnosis Assessment: Assessment: Right-sided weakness source of stroke versus Beny's paralysis Recent bypass surgery on 09/13/[address] Pond Acute blood loss in chest tube after bypass surgery Iron deficiency anemia Diabetes mellitus Obstructive sleep apnea Episode of atrial fibrillation with rapid ventricular response maintain on amiodarone Hypertension Chronic renal insufficiency New onset seizure could be alcohol withdrawal seizure maintained on Keppra Side effects with benzodiazepines and narcotics will avoid Thrombocytosis Plan: Intensive rehab therapies Continue all meds from [facility] neurosurgery unit Consult cardiology Monitor closely Admission Status: Inpatient Order (span 2 midnights) Reason for Inpatient Admission: IRF Diagnosis/Problems Diagnosis/Problems (1) CVA (cerebral vascular accident) Status: Acute Qualifiers: CVA mechanism: unspecified Qualified Codes: I63.9 - Cerebral infarction, unspecified (2) Beny's paralysis (postepileptic) Status: Acute (3) Seizure Status: Acute (4) Alcoholic Status: Chronic (5) NATE on CPAP Status: Chronic (6) Diabetes mellitus Status: Chronic Qualifiers: Diabetes mellitus type: type 2 Diabetes mellitus 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 insulin use: with fci use Diabetes mellitus complication status: with circulatory complication Diabetes mellitus complication detail: with other circulatory complications Qualified Codes: E11.59 - Type 2 diabetes mellitus with other circulatory complications; 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 (7) Hypertension Status: Chronic Qualifiers: Hypertension type: essential hypertension Qualified Codes: I10 - Essential (primary) hypertension (8) Anemia, posthemorrhagic, acute Status: Acute (9) Iron deficiency Status: Acute (10) Renal insufficiency Status: Chronic (11) NATE (obstructive sleep apnea) Status: Chronic (12) HTN (hypertension) Status: Chronic Qualifiers: Hypertension type: essential hypertension Qualified Codes: I10 - Essential (primary) hypertension (13) Hyperlipidemia Status: Chronic Qualifiers: Hyperlipidemia type: mixed hyperlipidemia Qualified Codes: E78.2 - Mixed hyperlipidemia (14) CAD (coronary artery disease) Onset Date: 09/19/2014 Status: Acute Qualifiers: Coronary Disease-Associated Artery/Lesion type: bypass graft [place] vs. transplanted heart: [place] heart Associated angina: without angina Qualified Codes: I25.810 - Atherosclerosis of coronary artery bypass graft(s) without angina pectoris Clinical Quality Measures DVT/VTE Risk/Contraindication: Risk Factor Score Per Nursin RFS Level Per Nursing on Admit: 4+=Very High Copy Copies To 1: JEROME GEORGE MD, MINDI DO Sep 22, 2018 18:09
--- NOTE | 2018-09-22 18:20 | Consultation-Cardiology ---
HPI-Cardiology Cardiology Consultation: Date of Consultation 09/22/18 Time Seen by a Provider: 18:00 Date of Admission Attending Physician Rowena Barrios DO Admitting Physician Anni Askew MD Consulting Physician YISSEL SHOEMAKER MD, MA, FACP, FACC, FSCAI, CCDS Physician requesting consult: Dr Barrios HPI: Chief Complaint: Reason for consultation: S/P CABG HPI Mr. Alas is a 63 year old male admitted to [facility] from [place], [place] after undergoing CABG on 09-13-18. His spouse is at the bedside. She reports he has a several issues following his CABG. He is currently sitting up in a chair at the bedside. He currently reports no c/o CP, incision pain, dyspnea or palpitations. He does have swelling in his bilat LE, which is gradually improving. Review of Systems-Cardiology Review of Systems Constitutional: No chills, No fever; malaise Eyes: No vision change Ears/Nose/Throat: No epistaxis, No recent hearing loss Respiratory: As described under HPI Cardiovascular: As described under HPI Gastrointestinal: No constipation, No diarrhea, No nausea, No vomiting Genitourinary: No dysuria, No hematuria Musculoskeletal: no symptoms reported Skin: No rash, No ulcerations Psychiatric/Neurological: seizure (post operative); No focal weakness, No syncope Hematologic: No bleeding abnormalities DSM-Jysqsr-Psbhey Hx Patient Social History Alcohol Use: Regular Use Recreational Drug Use: No Former smoker/When Quit: Sep 13, 1974 Type Used: Smokeless Tobacco 2nd Hand Smoke Exposure: No Recent Foreign Travel: No Recent Infectious Disease Expo: No Hospitalization with Isolation: Denies Physical Abuse Screen: No Sexual Abuse: No Immunizations Up To Date Tetanus Booster (TDap): More than 5yrs Date of Pneumonia Vaccine: Aug 14, 2017 Date of Influenza Vaccine: Apr 25, 2018 Past Medical History PMH As described under Assessment. Family Medical History Family Medical History: He does not report fam h/o early CAD or SCE Family History: Cardiovascular disease 19 FATHER 19 MOTHER Diabetes mellitus 19 FATHER 19 MOTHER G8 BROTHER Hypertension 19 FATHER Allergies and Home Medications Allergies Coded Allergies: No Known Drug Allergies (Verified , 05/19/08) Uncoded Allergies: [id number] (HAYFEVER) (Allergy, Mild, 12/21/08) Home Medications Albuterol Sulfate 2.5 Mg/3 Ml Vial.neb, 2.5 MG NEB Q6H PRN for SHORTNESS OF BREATH, (Reported) Amiodarone HCl 200 Mg Tablet, 200 MG PO DAILY, (Reported) Amlodipine Besylate 10 Mg Tablet, 10 MG PO DAILY, (Reported) Ammonium Lactate 385 Gm Cream..g., TP BID, (Reported) Apixaban 5 Mg Tablet, 5 MG PO BID, (Reported) Aripiprazole 2 Mg Tablet, 2 MG PO DAILY, (Reported) Aspirin 81 Mg Tab.chew, 81 MG PO DAILY, (Reported) Atorvastatin Calcium 40 Mg Tablet, 40 MG PO HS, (Reported) Fluoxetine HCl 40 Mg Capsule, 40 MG PO DAILY, (Reported) Furosemide 80 Mg Tablet, 80 MG PO Q48H, (Reported) Honey 15 Ml Gel..ml., TP Q48H, (Reported) Levetiracetam 500 Mg Tablet, 500 MG PO BID, (Reported) Metoprolol Tartrate 50 Mg Tablet, 75 MG PO BIDPC, (Reported) TAKE 1 & 1/2 (50MG) TABLETS Multivitamin 1 Each Tablet, 1 TAB PO DAILY, (Reported) Pantoprazole Sodium 40 Mg Tablet.dr, 40 MG PO DAILY, (Reported) Polyethylene Glycol 3350 17 Gm Powd.pack, 17 GM PO DAILY PRN for CONSTIPATION- 2ND LINE, (Reported) Potassium Chloride 10 Meq Capsule.er, 20 MEQ PO Q48H, (Reported) TO BE GIVEN WITH FUROSEMIDE ONLY TAKES 2 (10MEQ) CAPSULES Tramadol HCl 50 Mg Tablet, 50 MG PO Q6H PRN for PAIN-MODERATE, (Reported) Patient Home Medication List Home Medication List Reviewed: Yes Physical Exam-Cardiology Physical Exam Vital Signs/I&O 09/22/18 09/22/18 09/22/18 16:43 17:05 17:36 Temp 97.6 Pulse 65 70 Resp 18 B/P (MAP) 130/86 (101) Pulse Ox 98 O2 Delivery Room Air Room Air Capillary Refill : Constitutional: AAO x 3, well-developed, well-nourished HEENT: hearing is well preserved, oral hygience is good Neck: No carotid bruit; carotid pulses are 2 + bilaterally Respiratory: chest expansion is symmetric, chest is bilaterally symmetric, lungs clear to auscultation; No rhonchi, No wheezing Cardiovascular: regular rate-rhythm; No JVD; S1 and S2 Gastrointestinal: round, audible bowel sounds Extremities: swelling (bilat LE swelling) Neurologic/Psychiatric: grossly intact, power is 5/5 both on sides Skin: other (ACW mid-line incision with edges approx, no redness or drainage; RLE with incisions with rose in place, no drainage or redness noted) A/P-Cardiology Assessment/Admission Diagnosis Multivessel coronary artery disease per cardiac cath of 08-30-18. This consists of 80 to 90% mid vessel bifurcation stenosis of left anterior descending, 50% mid vessel stenosis of the left circumflex and 70 to 80% mid vessel stenosis of the right coronary. Elevated left ventricular end-diastolic pressure. Well- preserved global left ventricular systolic function with ejection fraction approximately 50% and with mild to moderate inferior hypokinesis of the left ventricle. For which he underwent CABG on 09-13-[address] Cantu at [facility] in [place], [place] consisting of grafts x 4 with non-reversed saphenous vein grafts to the diagonal, ramus marginalis and posterior descending branch of the RCA arteries and the left internal thoracic artery graft to the anterior descending coronary artery. P. A-fib post CABG for which he was started on Amiodarone - converted to SR Eliquis for stroke prophylaxis H/O postoperative acute encephalopathy H/O seizures post CABG for which he was started on Keppra Episode of left sided paralysis for which he was transferred to [place], [place] d/t inability to obtain CTA at [place], [place]. CT of head without contrast is reported to show no acute intracranial abnormality, cerebral atrophy with periventricular chronic ischemic changes on note 09-16-[address] [place] of neurology services at [facility]. 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 Symptoms have resolved. Echocardiogram of 09-19-18 at [facility] in [place], [place] by Dr. Powell showed LVEF 50-55%. Aortic valve thickening with mod to mod regurg. Possible, very small pericardial effusion. H/O blood transfusion reaction following CABG Echo on 06/23/18: LVEF 55-60%, Mild AI, PASP 35 mmHg, normal right heart size. Small ASD is reported on an echo of 08/14/14. WEI of 09-13-2014 is suggestive of a small PFO with a small amount of left to right shunt. LVEF 50%. Trivial to mild TR. Cardiac cath of 09-18-2014 showed no evidence of intracardiac shunt. LVEF 60%. Normal LVEDP H/O acute diastolic CHF in Jun 2018 Venous duplex of Jun 23, 2018 showed no evidence of DVT VQ lung scan of Jun 23, 2018 showed low probability of PE DM II with h/o diabetic nephropathy and CKD 3 Bilateral leg swelling Hypertension with LVH on surface ECG Obesity with BMI approx 36 Hyperlipidemia, difficult control despite combination therapy with atorvastatin and fenofibric acid Chronic joint and back pain due to DJD Larios's esophagitis Discussion and Recomendations Complex hospitalization following CABG We have reviewed records from [facility] and spoke with his spouse in detail Continue current medications including ASA, Eliquis, Amiodarone, BB, statin, Norvasc and diuretics along with potassium replacement Monitor lab closely We would like to thank medical services for this consult Further recs will be based on his hospital course Clinical Quality Measures DVT/VTE Risk/Contraindication: Risk Factor Score Per Nursin RFS Level Per Nursing on Admit: 4+=Very High YISSEL SHOEMAKER MD FACP FACC CCDS Sep 22, 2018 18:20
[2018-09-22] MEDS: meTOprolol TARTRATE 50 MG (LOPRESSOR) TAB PO SCH (19:30)
[2018-09-22] MEDS: APIXABAN 5 MG (ELIQUIS) TABLET PO SCH (20:10)
[2018-09-22] MEDS: LEVETIRACETAM 500 MG (KEPPRA) TAB PO SCH (20:10)
[2018-09-22] MEDS: ATORVASTATIN 40 MG (LIPITOR) TABLET PO SCH (20:10)
[2018-09-22] MEDS: ACETAMINOPHEN 500 MG TAB (TYLENOL) PO PRN (20:11)
[2018-09-23 06:00] VITALS: BP 143/86
[2018-09-23] MEDS: MULTIVIT W/MINERALS TAB (THERAGRAN M) PO SCH (06:02)
[2018-09-23 06:11] LABS: HEMOGLOBIN 8.9 G/DL (13.3-17.7); MEAN PLATELET VOLUME 8.9 FL (7.4-10.4); RED CELL DISTRIBUTION WIDTH 14.3 % (10.0-14.5); WHITE BLOOD COUNT 10.1 10^3/uL (4.3-11.0)
[2018-09-23 06:31] LABS: ALANINE AMINOTRANSFERASE 53 U/L (0-55); ALBUMIN 3.1 GM/DL (3.2-4.5); ALKALINE PHOSPHATASE 119 U/L (40-136); BUN/CREATININE RATIO 16; CALCIUM 9.6 MG/DL (8.5-10.1); CARBON DIOXIDE 22 MMOL/L (21-32); CHLORIDE 101 MMOL/L (98-107); CREATININE SERUM 1.16 MG/DL (0.60-1.30); GFR ESTIMATED > 60; GLUCOSE 102 MG/DL (70-105); MAGNESIUM 1.6 MG/DL (1.8-2.4); POTASSIUM 4.3 MMOL/L (3.6-5.0); SODIUM 135 MMOL/L (135-145)
[2018-09-23] MEDS ORDERED: KCL 10 MEQ TAB (MICRO K) PO SCH (07:00)
[2018-09-23] MEDS ORDERED: FUROSEMIDE 40 MG (LASIX) TAB PO SCH (07:00)
[2018-09-23 07:14] LABS: BILIRUBIN,TOTAL 0.6 MG/DL (0.1-1.0)
--- NOTE | 2018-09-23 08:37 | PM&R Progress Note ---
Subjective HPI/CC On Admission Date Seen by Provider: Sep 23, 2018 Time Seen by Provider: 08:40 Subjective/Events-last exam Pt is doing well but his is asking for nebulizer treatments so started Albuterol BID. Venofer will be ordered since Hgb low, checking iron, he did lose a lot of blood during the chest tube at [facility] [place]. Checking Hgb A1C. Diagnosed new hypothyroidism will place on low dose thyroid. Magnesium level being managed by cardiology. On CPAP at night. Bowel movement last night. 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 Review of Systems General: Fatigue, Malaise Pulmonary: Dyspnea Cardiovascular: Chest Pain Neurological: Weakness Objective Exam Vital Signs Vital Signs Date Time Temp Pulse Resp B/P (MAP) Pulse Ox O2 Delivery O2 Flow Rate FiO2 09/23/18 20:30 97 NIV CPAP 09/23/18 19:00 75 09/23/18 15:43 97.8 20 136/78 (97) Capillary Refill : General Appearance: No Apparent Distress, WD/WN, Chronically ill Respiratory: Lungs Clear, Normal Breath Sounds, No Accessory Muscle Use, No Respiratory Distress, Crackles, Decreased Breath Sounds Cardiovascular: Regular Rate, Rhythm, No Edema Neurologic/Psychiatric: Alert, Oriented x3, Normal Mood/Affect, data conversion operator II-XII Norm as Tested, Motor Weakness (right 4/5 upper and lower improved) Results/Procedures Lab Laboratory Tests 09/23/18 06:00 Patient resulted labs reviewed. Assessment/Plan Assessment and Plan Assess & Plan/Chief Complaint Assessment: Right-sided weakness source of stroke versus Beny's paralysis Recent bypass surgery on 09/13/[address] Pond Acute blood loss in chest tube after bypass surgery Iron deficiency anemia Diabetes mellitus Obstructive sleep apnea Episode of atrial fibrillation with rapid ventricular response maintain on amiodarone Hypertension Chronic renal insufficiency New onset seizure could be alcohol withdrawal seizure maintained on Keppra Side effects with benzodiazepines and narcotics will avoid Thrombocytosis Plan: Intensive rehab therapies Continue all meds from [place] [facility] Consult cardiology Monitor closely (1) CVA (cerebral vascular accident) (2) Beny's paralysis (postepileptic) (3) NATE on CPAP (4) HTN (hypertension) (5) Anemia, posthemorrhagic, acute (6) Seizure (7) Renal insufficiency (8) Hyperlipidemia (9) CAD (coronary artery disease) Onset Date: 09/19/2014 (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
--- NOTE | 2018-09-23 08:38 | Occupational Ther Daily Note ---
OT Current Status-Daily Note Subjective Pt alert, sitting in recliner. Pt agrees to therapy. No c/o pain at this time. present in room. Mental Status/Objective Patient Orientation: Person, Place, Time, Situation Therapy Code Descriptions/Definitions Functional [place] Measure: 0=Not Assessed/NA 4=Minimal Assistance 1=Total Assistance 5=Supervision or Setup 2=Maximal Assistance 6=Modified [place] 3=Moderate Assistance 7=Complete [place] ADL-Treatment Pt takes increased time to complete ADLs due to decreased activity tolerance, frequent rest breaks and SOA. Therapy Code Descriptions/Definitions Functional [place] Measure: 0=Not Assessed/NA 4=Minimal Assistance 1=Total Assistance 5=Supervision or Setup 2=Maximal Assistance 6=Modified [place] 3=Moderate Assistance 7=Complete [place] Therapy Quality Codes: 6 Independent with activity with or without an assistive device 5 Patient requires set up or clean up by helper. Patient completes activity by themselves 4 Supervision or touching assist (CGA). [place]flower provide cues , steadying assist 3 The helper provides less than half the effort to complete the activity 2 The helper provides more than half the effort to complete the activity 1 Dependent. The helper does all the effort to complete an activity 7 Patient refused to complete or attempt activity 9 The patient did not perform the activity before the current illness or injury 88 Not attempted due to Medical conditions or safety concerns Grooming (FIM): 5 (SBA while standing with FWW at sink to complete own grooming.) Oral Hygiene (QC): 4 Bathing (FIM): 4 (Assist to cleanse buttocks. Using grabbars, hand held shower , shower bench and long handle sponge pt able to complete all other areas with SBA for safety.) Bathing Location: L Arm, R Arm, L Upper Leg, R Upper Leg, L Lower Leg ( including foot), R Lower Leg (including foot), Chest, Abdomen, Perineal Area Shower/Bathe Self (QC): 3 Upper Body (FIM): 4 (Assist to pull down in back. Pt able to complete rest by self.) Upper Body Dressing (QC): 3 Lower Body Dressing (FIM): 3 (Pt introduced to AE for lower body dressing. Due to sternal precautions pt is limited on the pulling of sock aide. Pt demonstrates understanding of AE though will need continued skilled instructions for ease of use.) Lower Body Dressing (QC): 3 On/Off Footwear (QC): 2 Toileting (FIM): 4 (Assist to cleans buttocks. Is able to complete rest of task.) Toileting Hygiene (QC): 3 Transfers (B, C, W/C) (FIM): 5 (Closed SBA for safety using FWW.) Toilet/Commode Transfer (FIM): 5 (Close SBA using grabbars and FWW.) Toilet Transfer (QC): 4 Shower Transfer(FIM): 4 (CGA for safety using shower bench, grabbars and hand held shower.) Other Treatment Pt given therapy foam and theraputty to increase R hand strength and coordination. HEP given and instructed in correct technique. Pt able to demonstrated understanding, will need continued skilled instruction to become proficient at exercises. After therapy, pt sitting in recliner with call light/ phone in reach. present in room. All needs met in room. OT Short Term Goals Short Term Goals Time Frame: Sep 29, 2018 Eating(FIM): 5 Grooming(FIM): 5 Bathing(FIM): 4 Upper Body Dressing(FIM): 5 Lower Body Dressing(FIM): 4 Toileting(FIM): 4 Transfers (B,C,W/C) (FIM): 5 Toilet/Commode Transfer(FIM): 5 Shower Transfer(FIM): 5 1=Demonstrate adherence to instructed precautions during ADL tasks. 2=Patient will verbalize/demonstrate understanding of assistive devices/ modifications for ADL. 3=Patient will improve strength/tolerance for activity to enable patient to perform ADL's. OT Jail Goals Jail Goals Time Frame: Oct 06, 2018 Eating (FIM): 6 Eating (QC): 6 Groomin Oral Hygiene (QC): 6 Bathing(FIM): 5 Shower/Bathe Self (QC): 5 Upper Body Dressing(FIM): 6 Upper Body Dressing (QC): 6 Lower Body Dressing(FIM): 6 Lower Body Dressing (QC): 6 On/Off Footwear (QC): 6 Toileting(FIM): 6 Toileting Hygiene (QC): 6 Transfers (B,C,W/C) (FIM): 6 Toilet/Commode Transfer(FIM): 6 Toilet/Commode Transfer (QC): 6 Shower Transfer(FIM): 5 Additional Goals: 1-Demonstrate ADL Tasks, 2-Verbalize Understanding, 3- ImproveStrength/Donovan 1=Demonstrate adherence to instructed precautions during ADL tasks. 2=Patient will verbalize/demonstrate understanding of assistive devices/ modifications for ADL. 3=Patient will improve strength/tolerance for activity to enable patient to perform ADL's. OT Education/Plan Problem List/Assessment Assessment: Decreased UE Strength, Impaired Coordination, Impaired Self-Care Skills, Restricted Funct UE ROM (R UE weakness) Discharge Recommendations Plan/Recommendations: Continue POC Treatment Plan/Plan of Care Patient would benefit from OT for education, treatment and training to promote independence in ADL's, mobility, safety and/or upper extremity function for ADL' s. Plan of Care: ADL Retraining, Caregiver Training, Functional Mobility, Group Exercise/Act as Ind, UE Funct Exercise/Act Treatment Duration: Oct 06, 2018 Frequency: At least 5 of 7 days/Wk (IRF) Estimated Hrs Per Day: 1.5 hours per day Agreement: Yes Rehab Potential: Good Time/GCodes Start Time: 07:00 Stop Time: 08:30 Total Time Billed (hr/min): 90 Billed Treatment Time 1 visit-ADL 5 (70 min) EX 1 (20 min) JUAN CHAVIS Sep 23, 2018 08:37
[2018-09-23] MEDS ORDERED: LEVOTHYROXINE 25 MCG (LEVOTHROID) TAB PO NR (08:45)
[2018-09-23] MEDS: ASPIRIN 81 MG CHEW (CHILDREN'S ASA) PO SCH (09:34)
[2018-09-23] MEDS: PANTOPRAZOLE 40 MG (PROTONIX) TAB PO SCH (09:34)
[2018-09-23] MEDS: amLODIPine 10 MG (NORVASC) TAB PO SCH (09:34)
[2018-09-23] MEDS: AMIODARONE 200 MG (CORDARONE) TAB PO SCH (09:34)
[2018-09-23] MEDS: APIXABAN 5 MG (ELIQUIS) TABLET PO SCH ×2 (09:34→20:40)
[2018-09-23] MEDS: LEVETIRACETAM 500 MG (KEPPRA) TAB PO SCH ×2 (09:35→20:40)
[2018-09-23] MEDS: ACETAMINOPHEN 500 MG TAB (TYLENOL) PO PRN ×2 (09:35→20:41)
[2018-09-23] MEDS: FLUoxetine HCL 20 MG (PROzac) CAP PO SCH (09:35)
[2018-09-23] MEDS: meTOprolol TARTRATE 50 MG (LOPRESSOR) TAB PO SCH ×2 (09:35→18:21)
--- NOTE | 2018-09-23 10:01 | Physical Therapy Daily Note ---
PT Daily Note-Current Subjective Patient in recliner pre tx, agrees to PT, has no pain at rest. Appearance Patient in recliner post tx with nurse call, phone, tray, all needs met. Mental Status Patient Orientation: Person, Place, Situation Transfers Therapy Code Descriptions/Definitions Functional [place] Measure: 0=Not Assessed/NA 4=Minimal Assistance 1=Total Assistance 5=Supervision or Setup 2=Maximal Assistance 6=Modified [place] 3=Moderate Assistance 7=Complete [place] Therapy Quality Codes: 6 Independent with activity with or without an assistive device 5 Patient requires set up or clean up by helper. Patient completes activity by themselves 4 Supervision or touching assist (CGA). [place] provide cues , steadying assist 3 The helper provides less than half the effort to complete the activity 2 The helper provides more than half the effort to complete the activity 1 Dependent. The helper does all the effort to complete an activity 7 Patient refused to complete or attempt activity 9 The patient did not perform the activity before the current illness or injury 88 Not attempted due to Medical conditions or safety concerns Transfers (B, C, W/C) (FIM): 5 Sit to/from Stand: 5 Bed to/from Chair: 5 Weight Bearing Right Lower Extremity: Right Full Weight Bearing Left Lower Extremity: Left Full Weight Bearing Sternal precautions Gait Training Gait (FIM): 5 Distance: 150'x2, 200' Gait Level of Assist: 5 Gait Persons Needed: 1 Gait Assistive Device: FWW Slow but steady ambulation, patient slightly SOB after ambulation, needs a few minutes to recover. Exercises Standing: Hip Abduction, Hamstring curls, Heel/toe raises, Mini squats Standing Reps: 15 NuStep Minutes: 15 NuStep Workload: 4 Treatments transfers, ambulation, functional strengthening Assessment Current Status: Fair Progress Patient gets SOB with activity, needs occasional rest break. Patient compliant with sternal precautions. PT Short Term Goals Short Term Goals Time Frame: Sep 29, 2018 Transfers (B,C,W/C) (FIM): 5 Gait (FIM): 4 Distance (FIM): 3=150 ft Gait Assistive Device: FWW Stairs (FIM): 2 # of Steps: 4 PT Steel Molder Goals Steel Molder Goals PT Intermediate Goals Time Frame: Oct 06, 2018 Transfers (B,C,W/C) (FIM): 7 Sit to Lying (QC): 6 Lying-Sitting on Side/Bed(QC): 6 Sit to Stand (QC): 6 Roll Left to Right (QC): 6 Chair/Wjr-ic-Elqrw Xfer(QC): 6 Car Transfer (QC): 6 Does the Patient Walk: Yes Gait (FIM): 6 Gait distance (FIM): 3=150 ft Distance: 300 ft Walk 10 feet (QC): 6 Walk 10ft-Uneven Surface(QC): 6 Walk 50ft with 2 Turns (QC): 6 Walk 150 ft (QC): 6 Gait Assistive Device: FWW Does the Pt use WC or Scooter?: No Stairs (FIM): 6 # of Steps: 12 1 Step (curb) (QC): 6 4 Steps (QC): 6 12 Steps (QC): 6 Picking up an Object (QC): 4 (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) PT Plan Problem List Problem List: Activity Tolerance, Functional Strength, Safety, Balance, Gait, Transfer, Bed Mobility, ROM Treatment/Plan Treatment Plan: Continue Plan of Care Treatment Plan: Bed Mobility, Education, Functional Activity Donovan, Functional Strength, Group Therapy, Gait, Safety, Therapeutic Exercise, Transfers Treatment Duration: Oct 06, 2018 Frequency: Modified Program (IRF) Estimated Hrs Per Day: 1.5 hours per day Patient and/or Family Agrees t: Yes Safety Risks/Education Patient Education: Gait Training, Transfer Techniques, Correct Positioning, Safety Issues Teaching Recipient: Patient Teaching Methods: Demonstration, Discussion Response to Teaching: Reinforcement Needed Time/GCodes Time In: 0900 Time Out: 1000 Total Billed Treatment Time: 60 Total Billed Treatment 1 visit EX 30' GT 30' JEROD ORDOÑEZ PT Sep 23, 2018 10:01
[2018-09-23] MEDS: IRON SUCROSE 200 MG/10 ML (VENOFER) VIAL IV SCH (11:07)
--- NOTE | 2018-09-23 11:28 | ST Cognitive Linguistic Eval ---
Speech Evaluation-General Medical Diagnosis CABG x 4; right sided weakness Onset Date: Sep 22, 2018 Therapy Diagnosis Therapy Diagnosis: Cognitive-communication Precautions Precautions/Isolations: Seizure, Fall Prevention, Standard Precautions, Pressure Ulcer Medical History Pertinent Medical History: Atrial Fib, Alcoholism, CABG, CAD, CVA, DM, GERD, HTN Reviewed History: Yes Social History Current Living Status: Spouse Speech PLF-Current Status Prior Level of Function Patient lived at home with his and was independent for his daily needs at that time. Subjective Patient was pleasant and attentive during the evaluation process. Language Eval: Auditory Comprehends Simple Yes/No Ques: Functional Indent/Objects Multiple Carranza: Functional Ident/Pics in Multiple Carranza: Functional Follows 1-Step Commands: Functional Follows Complex Directions: Functional Follows General Conversations: Functional Language Eval: Verbal Language Completes Spontaneous Greeting: Functional Produces Auto, Serial Info: Functional Imitates Simple Words/Phrases: Functional Word Finding: Functional Requests Basic Needs: Functional States Basic Personal Info: Functional Expresses Complex Ideas: Functional Objective Cognitive Domain Attention: WNL Memory: WNL Problem Solving: Functional Executive Functions: [facility] Objective Formal/Standardized Tests [facility] Cognitive/Communication Oral Motor/Speech Production Memory: Immediate 3/3, Delayed 3/3, Orientation: 5/5, Problem Solving: Simple 5/ 5, Complex: 5/5, Auditory Processin/5 Impression Patient is a pleasant 63 year old man who was admitted to the ARU for strengthening following his CVA and CABG x4. The patient was evaluated with no cognitive deficits noted. Patient is not requiring skilled ST services at this time. Communication/Social Cognition Comprehension: 7 Expression: 7 Social Interaction: 7 Problem Solvin Memory: 7 Speech Patient Assess Expression of Ideas/Wants: Expression (4) Understanding Verbal Content: Understands (4) Brief Interview-Mental Status: Yes Repetition of Three Words: Three (3) Temporal Orientation: Year: Correct (3) Temporal Orientation: Month: Accurate within 5 days(2) Temporal Orientation: Day: Correct (1) Recall : Wear to say "Sock": Yes, no cue required (2) Recall : Color: Yes, no cue required (2) Recall : Bed: Yes, no cue required (2) Memory/Recall Ability: Current season, Staff names and faces, That he or she is in a hsp/hsp unit Speech-Plan Patient/Family Goals Patient/Family Goals: Patient plans to return home with his post rehab. Treatment Plan Speech Therapy Treatment Plan: Discontinue ST Skilled ST services are not warranted at this time. Treatment Duration: Sep 23, 2018 Frequency: 1 time per week Estimated Hrs Per Day: .25 hour per day Rehab Potential: Good Barriers to Learning: None identified Pt/Family Agrees to Plan: Yes Safety Risks/Education Teaching Recipient: Patient Teaching Methods: Discussion Response to Teaching: Verbalize Understanding Education Topics Provided: Safety within his room. Time Speech Therapy Time In: 11:00 Speech Therapy Time Out: 11:15 Total Billed Time: 15 Billed Treatment Time 1, SPSNDCOMP BIBI Loja Sep 23, 2018 11:28
--- NOTE | 2018-09-23 11:35 | Progress Note-Cardiology ---
Cardiology SOAP Progress Note Objective: I&O/Vital Signs 09/23/18 09/23/18 09/23/18 09/23/18 01:00 06:00 07:00 08:00 Temp 97.4 Pulse 59 71 70 Resp 20 B/P (MAP) 143/86 (105) Pulse Ox 97 O2 Delivery Room Air Room Air Weight (Pounds): 260 Weight (Ounces): 0.0 Weight (Calculated Kilograms): 117.813045 Constitutional: AAO x 3, well-developed, well-nourished Respiratory: chest expansion is symmetric, chest is bilaterally symmetric, lungs clear to auscultation; No rhonchi, No wheezing Cardiovascular: regular rate-rhythm; No JVD; S1 and S2 Gastrointestional: round, audible bowel sounds Extremities: swelling (bilat LE swelling) Neurologic/Psychiatric: grossly intact, power is 5/5 both on sides Skin: other (ACW mid-line incision with edges approx, no redness or drainage; RLE with incisions with rose in place, no drainage or redness noted) Results/Procedures: Labs Laboratory Tests 09/23/18 06:00: White Blood Count 10.1, Red Blood Count 3.30L, Hemoglobin 8.9L, Hematocrit 28L, Mean Corpuscular Volume 86, Mean Corpuscular Hemoglobin 27, Mean Corpuscular Hemoglobin Concent 31L, Red Cell Distribution Width 14.3, Platelet Count 510H, Mean Platelet Volume 8.9, Sodium Level 135, Potassium Level 4.3, Chloride Level 101, Carbon Dioxide Level 22, Anion Gap 12, Blood Urea Nitrogen 18, Creatinine 1.16, Estimat Glomerular Filtration Rate > 60, BUN/Creatinine Ratio 16, Glucose Level 102, Calcium Level 9.6, Corrected Calcium 10.3H, Magnesium Level 1.6L, Total Bilirubin 0.6, Aspartate Amino Transf (AST/SGOT) 29, Alanine Aminotransferase (ALT/SGPT) 53, Alkaline Phosphatase 119, Total Protein 6.0L, Albumin 3.1L, Thyroid Stimulating Hormone (TSH) 5.72H Laboratory Tests 09/23/18 06:00 A/P: Assessment: Multivessel coronary artery disease per cardiac cath of 08-30-18. This consists of 80 to 90% mid vessel bifurcation stenosis of left anterior descending, 50% mid vessel stenosis of the left circumflex and 70 to 80% mid vessel stenosis of the right coronary. Elevated left ventricular end-diastolic pressure. Well- preserved global left ventricular systolic function with ejection fraction approximately 50% and with mild to moderate inferior hypokinesis of the left ventricle. For which he underwent CABG on 09-13-[address] Cantu at [facility] in [place], [place] consisting of grafts x 4 with non-reversed saphenous vein grafts to the diagonal, ramus marginalis and posterior descending branch of the RCA arteries and the left internal thoracic artery graft to the anterior descending coronary artery. P. A-fib post CABG for which he was started on Amiodarone - converted to SR Eliquis for stroke prophylaxis H/O postoperative acute encephalopathy H/O seizures post CABG for which he was started on Keppra Episode of left sided paralysis for which he was transferred to [place], [place] d/t inability to obtain CTA at [place], [place]. CT of head without contrast is reported to show no acute intracranial abnormality, cerebral atrophy with periventricular chronic ischemic changes on note 09-16-[address] [place] of neurology services at [facility]. 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 Symptoms have resolved. Echocardiogram of 09-19-18 at [facility] in [place], [place] by Dr. Powell showed LVEF 50-55%. Aortic valve thickening with mod to mod regurg. Possible, very small pericardial effusion. H/O blood transfusion reaction following CABG Mild anemia - management per medical services Hypothyroidism - management per medical services Echo on 06/23/18: LVEF 55-60%, Mild AI, PASP 35 mmHg, normal right heart size. Small ASD is reported on an echo of 08/14/14. WEI of 09-13-2014 is suggestive of a small PFO with a small amount of left to right shunt. LVEF 50%. Trivial to mild TR. Cardiac cath of 09-18-2014 showed no evidence of intracardiac shunt. LVEF 60%. Normal LVEDP H/O acute diastolic CHF in Jun 2018 Venous duplex of Jun 23, 2018 showed no evidence of DVT VQ lung scan of Jun 23, 2018 showed low probability of PE DM II with h/o diabetic nephropathy and CKD 3 Bilateral leg swelling Hypertension with LVH on surface ECG Obesity with BMI approx 36 Hyperlipidemia, difficult control despite combination therapy with atorvastatin and fenofibric acid Chronic joint and back pain due to DJD Larios's esophagitis Plan: Complex hospitalization following CABG Continue current medications including ASA, Eliquis, Amiodarone, BB, statin, Norvasc and diuretics along with potassium replacement Replace Mag Monitor lab closely TRACIE JOHNSON Sep 23, 2018 11:35
[2018-09-23] MEDS ORDERED: KCL 20 MEQ TAB (K-DUR) PO NR (12:00)
[2018-09-23] MEDS ORDERED: FUROSEMIDE 40 MG (LASIX) TAB PO NR (12:00)
--- NOTE | 2018-09-23 12:08 | Progress Note-Cardiology ---
Cardiology SOAP Progress Note Subjective: Sitting up in chair at the bedside. C/O fatigue this morning after PT. He denies any CP, palpitations, syncope or near syncope. C/O bilat LE swelling. Objective: I&O/Vital Signs 09/23/18 09/23/18 09/23/18 09/23/18 01:00 06:00 07:00 08:00 Temp 97.4 Pulse 59 71 70 Resp 20 B/P (MAP) 143/86 (105) Pulse Ox 97 O2 Delivery Room Air Room Air Weight (Pounds): 260 Weight (Ounces): 0.0 Weight (Calculated Kilograms): 117.266703 Constitutional: AAO x 3, well-developed, well-nourished Respiratory: chest expansion is symmetric, chest is bilaterally symmetric, lungs clear to auscultation; No rhonchi, No wheezing Cardiovascular: regular rate-rhythm; No JVD; S1 and S2 Gastrointestional: round, audible bowel sounds Extremities: swelling (bilat LE swelling) Neurologic/Psychiatric: grossly intact, power is 5/5 both on sides Skin: other (ACW mid-line incision with edges approx, no redness or drainage; RLE with incisions with rose in place, no drainage or redness noted) Results/Procedures: Labs Laboratory Tests 09/23/18 06:00: White Blood Count 10.1, Red Blood Count 3.30L, Hemoglobin 8.9L, Hematocrit 28L, Mean Corpuscular Volume 86, Mean Corpuscular Hemoglobin 27, Mean Corpuscular Hemoglobin Concent 31L, Red Cell Distribution Width 14.3, Platelet Count 510H, Mean Platelet Volume 8.9, Sodium Level 135, Potassium Level 4.3, Chloride Level 101, Carbon Dioxide Level 22, Anion Gap 12, Blood Urea Nitrogen 18, Creatinine 1.16, Estimat Glomerular Filtration Rate > 60, BUN/Creatinine Ratio 16, Glucose Level 102, Calcium Level 9.6, Corrected Calcium 10.3H, Magnesium Level 1.6L, Total Bilirubin 0.6, Aspartate Amino Transf (AST/SGOT) 29, Alanine Aminotransferase (ALT/SGPT) 53, Alkaline Phosphatase 119, Total Protein 6.0L, Albumin 3.1L, Thyroid Stimulating Hormone (TSH) 5.72H Laboratory Tests 09/23/18 06:00 A/P: Assessment: Multivessel coronary artery disease per cardiac cath of 08-30-18. This consists of 80 to 90% mid vessel bifurcation stenosis of left anterior descending, 50% mid vessel stenosis of the left circumflex and 70 to 80% mid vessel stenosis of the right coronary. Elevated left ventricular end-diastolic pressure. Well- preserved global left ventricular systolic function with ejection fraction approximately 50% and with mild to moderate inferior hypokinesis of the left ventricle. For which he underwent CABG on 09-13-[address] Cantu at [facility] in [place], [place] consisting of grafts x 4 with non-reversed saphenous vein grafts to the diagonal, ramus marginalis and posterior descending branch of the RCA arteries and the left internal thoracic artery graft to the anterior descending coronary artery. P. A-fib post CABG for which he was started on Amiodarone - converted to SR Eliquis for stroke prophylaxis H/O postoperative acute encephalopathy H/O seizures post CABG for which he was started on Keppra Episode of left sided paralysis for which he was transferred to [place], [place] d/t inability to obtain CTA at [place], [place]. CT of head without contrast is reported to show no acute intracranial abnormality, cerebral atrophy with periventricular chronic ischemic changes on note 09-16-[address] Mesa of neurology services at [facility]. 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 Symptoms have resolved. Echocardiogram of 09-19-18 at [facility] in [place], [place] by Dr. Powell showed LVEF 50-55%. Aortic valve thickening with mod to mod regurg. Possible, very small pericardial effusion. H/O blood transfusion reaction following CABG Mild anemia - management per medical services Hypothyroidism - management per medical services Echo on 06/23/18: LVEF 55-60%, Mild AI, PASP 35 mmHg, normal right heart size. Small ASD is reported on an echo of 08/14/14. WEI of 09-13-2014 is suggestive of a small PFO with a small amount of left to right shunt. LVEF 50%. Trivial to mild TR. Cardiac cath of 09-18-2014 showed no evidence of intracardiac shunt. LVEF 60%. Normal LVEDP H/O acute diastolic CHF in Jun 2018 Venous duplex of Jun 23, 2018 showed no evidence of DVT VQ lung scan of Jun 23, 2018 showed low probability of PE DM II with h/o diabetic nephropathy and CKD 3 Bilateral leg swelling Hypertension with LVH on surface ECG Obesity with BMI approx 36 Hyperlipidemia, difficult control despite combination therapy with atorvastatin and fenofibric acid Chronic joint and back pain due to DJD Larios's esophagitis Plan: Complex hospitalization following CABG Continue current medications including ASA, Eliquis, Amiodarone, BB, statin, Norvasc and diuretics along with potassium replacement Change diuretics to daily with potassium replacement daily Anemia girma managed by medical services - iron replacement Replace Mag Monitor lab closely TRACIE JOHNSON Sep 23, 2018 12:08
[2018-09-23] MEDS: MAGNESIUM 1 GM/100 ML IVPB 100 ML IV SCH ×2 (12:33→13:36)
--- NOTE | 2018-09-23 13:31 | Physical Therapy Daily Note ---
PT Daily Note-Current Subjective Patient in recliner pre tx, agrees to PT, has 5/10 pain in chest incision. Appearance Patient in bed post tx with nurse call, phone, tray, family in the room. Mental Status Patient Orientation: Person, Place, Situation Attachments: IV Transfers Therapy Code Descriptions/Definitions Functional [place] Measure: 0=Not Assessed/NA 4=Minimal Assistance 1=Total Assistance 5=Supervision or Setup 2=Maximal Assistance 6=Modified [place] 3=Moderate Assistance 7=Complete [place] Therapy Quality Codes: 6 Independent with activity with or without an assistive device 5 Patient requires set up or clean up by helper. Patient completes activity by themselves 4 Supervision or touching assist (CGA). Powell provide cues , steadying assist 3 The helper provides less than half the effort to complete the activity 2 The helper provides more than half the effort to complete the activity 1 Dependent. The helper does all the effort to complete an activity 7 Patient refused to complete or attempt activity 9 The patient did not perform the activity before the current illness or injury 88 Not attempted due to Medical conditions or safety concerns Transfers (B, C, W/C) (FIM): 3 Scootin Rollin Supine to/from Sit: 3 Sit to/from Stand: 5 Bed to/from Chair: 5 compliant with sternal precautions Weight Bearing Right Lower Extremity: Right Full Weight Bearing Left Lower Extremity: Left Full Weight Bearing Sternal precautions Gait Training Gait (FIM): 5 Distance: 150'x2, 200' Gait Level of Assist: 5 Gait Persons Needed: 1 Gait Assistive Device: FWW slow but steady ambulation, slightly SOB after ambulation Exercises LAQ alternating for 5 min Treatments bed mobility and transfers, ambulation, functional strengthening Assessment Current Status: Fair Progress improving endurance PT Short Term Goals Short Term Goals Time Frame: Sep 29, 2018 Transfers (B,C,W/C) (FIM): 5 Gait (FIM): 4 Distance (FIM): 3=150 ft Gait Assistive Device: FWW Stairs (FIM): 2 # of Steps: 4 PT Buckle Stringer Goals Long-Term Goals PT Buckle Stringer Goals Time Frame: Oct 06, 2018 Transfers (B,C,W/C) (FIM): 7 Sit to Lying (QC): 6 Lying-Sitting on Side/Bed(QC): 6 Sit to Stand (QC): 6 Roll Left to Right (QC): 6 Chair/[id number] Xfer(QC): 6 Car Transfer (QC): 6 Does the Patient Walk: Yes Gait (FIM): 6 Gait distance (FIM): 3=150 ft Distance: 300 ft Walk 10 feet (QC): 6 Walk 10ft-Uneven Surface(QC): 6 Walk 50ft with 2 Turns (QC): 6 Walk 150 ft (QC): 6 Gait Assistive Device: FWW Does the Pt use WC or Scooter?: No Stairs (FIM): 6 # of Steps: 12 1 Step (curb) (QC): 6 4 Steps (QC): 6 12 Steps (QC): 6 Picking up an Object (QC): 4 (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) PT Plan Problem List Problem List: Activity Tolerance, Functional Strength, Safety, Balance, Gait, Transfer, Bed Mobility, ROM Treatment/Plan Treatment Plan: Continue Plan of Care Treatment Plan: Bed Mobility, Education, Functional Activity Donovan, Functional Strength, Group Therapy, Gait, Safety, Therapeutic Exercise, Transfers Treatment Duration: Oct 06, 2018 Frequency: Modified Program (IRF) Estimated Hrs Per Day: 1.5 hours per day Patient and/or Family Agrees t: Yes Safety Risks/Education Patient Education: Gait Training, Transfer Techniques, Correct Positioning, Safety Issues Teaching Recipient: Patient Teaching Methods: Demonstration, Discussion Response to Teaching: Reinforcement Needed Time/GCodes Time In: 1300 Time Out: 1330 Total Billed Treatment Time: 30 Total Billed Treatment 1 visit GT 20' FA 10' JEROD ORDOÑEZ PT Sep 23, 2018 13:31
--- NOTE | 2018-09-23 14:15 | NUR ---
DIRECTOR OF QUALITY CONTROL met with patient and spouse to complete initial assessment. Patient was alert and oriented, and agreeable to assessment. Patient admitted to ARU from [facility] following CABG and possible CVA. Prior to current hospitalization, patient was independent and required no DME. Patient resides with spouse, Michelle in one level home in [place]. The home has 3 steps at the entrance with no handrail. Although patient was independent prior to hospitalization, family does possess several pieces of DME from past family members, including: a front-wheeled walker, Rollator walker, single-point cane and quad cane. Patient identifies , Michelle as primary contact at [phone] and son Joel at [phone]. Michelle as an RN at [employer], but will be available to assist patient at home upon discharge. PCP identified as Dr. Askew. Insurance verified as [employer] and Medicare with prescription coverage. Patient utilizes mail order prescriptions and [facility] for local pharmacy needs. DIRECTOR OF QUALITY CONTROL reviewed typical rehabilitation length of stay, required weekly insurance updates and weekly team conferences. Patient and spouse expressed no concerns at this time. DIRECTOR OF QUALITY CONTROL will continue to follow.
[2018-09-23] MEDS: RT-ALBUTEROL SULF 2.5 MG/3 ML PRE-MIX VIAL INH SCH ×2 (14:53→20:30)
[2018-09-23 15:43] VITALS: BP 136/78
[2018-09-23] MEDS: ATORVASTATIN 40 MG (LIPITOR) TABLET PO SCH (20:40)
--- NOTE | 2018-09-23 21:40 | Individualized Plan of Care ---
Individualized Plan of Care Rehab Nursing IPOC Order Admission Date Sep 22, 2018 at 14:10 Current Orders Orders Admission Arrival Bed Request (09/22/18 14:16) Admission Order(Inpt,Obs,Sdc) (09/22/18 15:13) Vital Signs: Routine (Order) 08,16,00 (09/22/18 15:13) Sequential Compression Device 08,20 (09/22/18 15:13) Occupational Therapist Assistants-Inpt Rehab Con (09/22/18 15:13) Rehab Nursing Orders-Ipoc (09/22/18 15:13) Physical Therapy Rehab Orders (09/22/18 15:13) Occupational Therapy Rehab Ord (09/22/18 15:13) Speech Therapy Rehab Orders (09/22/18 15:13) Intake & Output 06,14,22 (09/22/18 15:13) Precautions (Aru) (09/22/18 15:13) Weekly Weight (Lbs) WEEK (09/22/18 15:13) Rehab-Intensity Of Therapy (09/22/18 15:13) Initiate Admission Nursing Pro .admission (09/22/18 15:13) Acetaminophen Tablet (Tylenol Tablet) (09/22/18 15:15) Calcium Carbonate Chew Tablet (Antacid C (09/22/18 15:15) Docusate Sodium Capsule (Colace Capsule) (09/22/18 15:15) Polyethylene Glycol Powder Pkt (Miralax (09/22/18 15:15) Ondansetron Injection (Zofran Injectio (09/22/18 15:15) Ondansetron Oral Dissolve Tab (Zofran (09/22/18 15:15) Patient Visit (09/22/18 ) Pt Eval Moderate Complexity (09/22/18 ) Functional Activities, Ea 15 (09/22/18 ) Albuterol Pre-Mix Nebs (Rt) (Proventil (09/22/18 15:45) Amiodarone Tablet (Cordarone Tablet) (09/23/18 09:00) Apixaban Tablet (Eliquis Tablet) (09/22/18 21:00) Aripiprazole Tablet (Abilify Tablet) (09/23/18 09:00) Aspirin Chewable Tablet (Baby Aspirin Ch (09/23/18 09:00) Atorvastatin Tablet (Lipitor) (09/22/18 21:00) Metoprolol Tartrate (Ir) Tab (Lopressor (09/22/18 18:00) Pantoprazole Tablet (Protonix Tablet) (09/23/18 09:00) Tramadol Tablet (Ultram Tablet) (09/22/18 15:45) Amlodipine Tablet (Norvasc Tablet) (09/23/18 09:00) Fluoxetine Capsule (Prozac Capsule) (09/23/18 09:00) Levetiracetam Tablet (Keppra Tablet) (09/22/18 21:00) Therapeutic Multivitamin Tab (Vitamins, (09/23/18 07:00) Furosemide Tablet (Lasix Tablet) (09/23/18 07:00) General/Regular (09/22/18 Lunch) Potassium Chloride (Tablet) (Klor Con Ta (09/23/18 07:00) Telemetry (09/22/18 16:37) Telemetry Nursing Assessment ( (09/22/18 16:37) Cbc No Diff (09/23/18 05:00) Comprehensive Metabolic Panel (09/23/18 05:00) Magnesium (09/23/18 05:00) Thyroid Stimulating Hormone (09/23/18 05:00) Furosemide Tablet (Lasix Tablet) (09/24/18 07:00) Potassium Chloride (Tablet) (Klor Con Ta (09/24/18 07:00) Iron Test (Fe) (09/23/18 08:31) Albuterol Pre-Mix Nebs (Rt) (Proventil (09/23/18 08:45) Svn Small Volume Nebulizer (09/23/18 08:31) Levothyroxine Tablet (Synthroid Tablet) (09/23/18 08:45) Levothyroxine Tablet (Synthroid Tablet) (09/24/18 06:30) Hemoglobin A1c (09/23/18 08:31) Iron Sucrose Injection (Venofer Injectio (09/23/18 09:00) Furosemide Tablet (Lasix Tablet) (09/23/18 12:00) Furosemide Tablet (Lasix Tablet) (09/24/18 09:00) Magnesium 1 Gm/100 Ml Ivpb (Magnesium Man (09/23/18 12:00) Potassium Chloride (Tablet) (K Dur Table (09/23/18 12:00) Potassium Chloride (Tablet) (K Dur Table (09/24/18 07:00) Patient Visit (09/23/18 ) Gait Training, Ea 15 Min (09/23/18 ) Exercise Therap, Ea 15 Min (09/23/18 ) Functional Activities, Ea 15 (09/23/18 ) Patient Visit (09/23/18 ) Speech Sound Lang Comp (09/23/18 ) Patient Visit (09/24/18 ) Exercise Therap, Ea 15 Min (09/24/18 ) Gait Training, Ea 15 Min (09/24/18 ) Rehab Nursing Orders: Ongoing Assess. of Function Status Intensity of Therapy to be met Patient to be seen: Min.3h per day/5 of 7d PT IPOC Problem List: Activity Tolerance, Functional Strength, Safety, Balance, Gait, Transfer, Bed Mobility, ROM Treatment Plan: Continue Plan of Care Bed Mobility, Education, Functional Activity Donovan, Functional Strength, Group Therapy, Gait, Safety, Therapeutic Exercise, Transfers Treatment Duration: Oct 06, 2018 Frequency: Modified Program (IRF) Estimated Hrs Per Day: 1.5 hours per day OT IPOC Problems: Decreased UE Strength, Impaired Coordination, Impaired Self-Care Skills, Restricted Funct UE ROM (R UE weakness) OT Treatment, Training and Edu: Yes Plan of Care: ADL Retraining, Caregiver Training, Functional Mobility, Group Exercise/Act as Ind, UE Funct Exercise/Act Treatment Duration: Oct 06, 2018 Frequency: At least 5 of 7 days/Wk (IRF) Estimated Hrs Per Day: 1.[address] IPOC Speech Therapy Treatment Plan: Discontinue ST Treatment Duration: Sep 23, 2018 Frequency: 1 time per week Estimated Hrs Per Day: .25 hour per day Occupational Therapist Assistants/Case Mgmt Occupational Therapist Assistants/Case Managemen: Discharge Planning Dietitian/Warehouse Receiver Dietitian/Warehouse Receiver to monitor nutritional status and make changes and/or recommendations as needed and work with speech pathology on dietary upgrades as the occur. Physician IPOC Medical Issues being managed closely and that require the 24 hour availability of a physician: New onset seizures require close monitoring Fall risk Monitoring of bypass graft sites and volume overload Medical Issues: Falls Precautions, Fluid/Electrolyte/Nutrition Balance, Infection Protection, Pain Management, Wound Care Brief Synthesis of Preadmission Screen, Post-Admission Evaluation, and Therapy Evaluations: PT will focus on transfers due to right sided weakness and fall prevention OT will focus on home management of ADL's Medical Prognosis: good Anticipated Length of Stay: 10 days HUYEN FAUSTIN DO Sep 23, 2018 21:40
[2018-09-24 05:18] VITALS: BP 134/74
[2018-09-24] MEDS: LEVOTHYROXINE 25 MCG (LEVOTHROID) TAB PO SCH (06:27)
[2018-09-24] MEDS: KCL 20 MEQ TAB (K-DUR) PO SCH (06:27)
[2018-09-24] MEDS: MULTIVIT W/MINERALS TAB (THERAGRAN M) PO SCH (06:27)
[2018-09-24] MEDS: ACETAMINOPHEN 500 MG TAB (TYLENOL) PO PRN ×2 (06:29→20:33)
[2018-09-24] MEDS ORDERED: KCL 10 MEQ TAB (MICRO K) PO SCH (07:00)
[2018-09-24] MEDS ORDERED: FUROSEMIDE 40 MG (LASIX) TAB PO SCH (07:00)
[2018-09-24 08:17] VITALS: BP 128/79
[2018-09-24] MEDS: ASPIRIN 81 MG CHEW (CHILDREN'S ASA) PO SCH (08:18)
[2018-09-24] MEDS: FLUoxetine HCL 20 MG (PROzac) CAP PO SCH (08:18)
[2018-09-24] MEDS: FUROSEMIDE 40 MG (LASIX) TAB PO SCH (08:18)
[2018-09-24] MEDS: amLODIPine 10 MG (NORVASC) TAB PO SCH (08:18)
[2018-09-24] MEDS: AMIODARONE 200 MG (CORDARONE) TAB PO SCH (08:18)
[2018-09-24] MEDS: LEVETIRACETAM 500 MG (KEPPRA) TAB PO SCH ×2 (08:18→20:32)
[2018-09-24] MEDS: PANTOPRAZOLE 40 MG (PROTONIX) TAB PO SCH (08:19)
[2018-09-24] MEDS: meTOprolol TARTRATE 50 MG (LOPRESSOR) TAB PO SCH ×2 (08:19→17:55)
[2018-09-24] MEDS: APIXABAN 5 MG (ELIQUIS) TABLET PO SCH ×2 (08:19→20:32)
[2018-09-24] MEDS: RT-ALBUTEROL SULF 2.5 MG/3 ML PRE-MIX VIAL INH SCH ×2 (08:20→20:38)
--- NOTE | 2018-09-24 09:06 | Occupational Ther Daily Note ---
OT Current Status-Daily Note Subjective No pain reported. Appearance Pt. up in chair. Agrees to shower. Mental Status/Objective Patient Orientation: Person, Place, Time, Situation Therapy Code Descriptions/Definitions Functional [place] Measure: 0=Not Assessed/NA 4=Minimal Assistance 1=Total Assistance 5=Supervision or Setup 2=Maximal Assistance 6=Modified [place] 3=Moderate Assistance 7=Complete [place] Attachments: IV ADL-Treatment Therapy Code Descriptions/Definitions Functional [place] Measure: 0=Not Assessed/NA 4=Minimal Assistance 1=Total Assistance 5=Supervision or Setup 2=Maximal Assistance 6=Modified [place] 3=Moderate Assistance 7=Complete [place] Therapy Quality Codes: 6 Independent with activity with or without an assistive device 5 Patient requires set up or clean up by helper. Patient completes activity by themselves 4 Supervision or touching assist (CGA). [place] provide cues , steadying assist 3 The helper provides less than half the effort to complete the activity 2 The helper provides more than half the effort to complete the activity 1 Dependent. The helper does all the effort to complete an activity 7 Patient refused to complete or attempt activity 9 The patient did not perform the activity before the current illness or injury 88 Not attempted due to Medical conditions or safety concerns Eating (FIM): 5 Eating (QC): 5 Grooming (FIM): 5 (SBA at sink to brush teeth.) Oral Hygiene (QC): 4 Bathing (FIM): 3 (Pt. requires assistance to wash rear amita area, under right arm, and around rose on right leg. Pt. is able to use LH sponge to wash his feet and the rest of his legs.) Shower/Bathe Self (QC): 3 Upper Body (FIM): 4 (Pt. able to doff/don shirt but did require a little assist to pocket and pulley machine operator stomach area.) Upper Body Dressing (QC): 4 Lower Body Dressing (FIM): 3 (Pt. required assistance to don pants over feet, but is able to pocket and pulley machine operator hips in stance.) Lower Body Dressing (QC): 3 Toileting (FIM): 2 (Pt. requires assistance to cleanse rear amita area. Pt. issued toilet tongs and instructed on use for next attempt.) Toileting Hygiene (QC): 2 Transfers (B, C, W/C) (FIM): 4 (Pt. is able to transfer sit-stand. Requires CGA to ambulate with walker.) Toilet/Commode Transfer (FIM): 4 Toilet Transfer (QC): 4 Shower Transfer(FIM): 4 Spouse dressed toe wound after shower task. Education OT Patient Education: Correct positioning, Modified ADL techniques, Progress toward Goal/Update tx plan, Purpose of tx/functional activities, Reviewed precautions, Rehab process, Transfer techniques Teaching Recipient: Patient Teaching Methods: Demonstration, Discussion Response to Teaching: Verbalize Understanding, Return Demonstration OT Short Term Goals Short Term Goals Time Frame: Sep 29, 2018 Eating(FIM): 5 Grooming(FIM): 5 Bathing(FIM): 4 Upper Body Dressing(FIM): 5 Lower Body Dressing(FIM): 4 Toileting(FIM): 4 Transfers (B,C,W/C) (FIM): 5 Toilet/Commode Transfer(FIM): 5 Shower Transfer(FIM): 5 1=Demonstrate adherence to instructed precautions during ADL tasks. 2=Patient will verbalize/demonstrate understanding of assistive devices/ modifications for ADL. 3=Patient will improve strength/tolerance for activity to enable patient to perform ADL's. OT Alf Goals Stenotype Operator Goals Time Frame: Oct 06, 2018 Eating (FIM): 6 Eating (QC): 6 Groomin Oral Hygiene (QC): 6 Bathing(FIM): 5 Shower/Bathe Self (QC): 5 Upper Body Dressing(FIM): 6 Upper Body Dressing (QC): 6 Lower Body Dressing(FIM): 6 Lower Body Dressing (QC): 6 On/Off Footwear (QC): 6 Toileting(FIM): 6 Toileting Hygiene (QC): 6 Transfers (B,C,W/C) (FIM): 6 Toilet/Commode Transfer(FIM): 6 Toilet/Commode Transfer (QC): 6 Shower Transfer(FIM): 5 Additional Goals: 1-Demonstrate ADL Tasks, 2-Verbalize Understanding, 3- ImproveStrength/Donovan 1=Demonstrate adherence to instructed precautions during ADL tasks. 2=Patient will verbalize/demonstrate understanding of assistive devices/ modifications for ADL. 3=Patient will improve strength/tolerance for activity to enable patient to perform ADL's. OT Education/Plan Problem List/Assessment Assessment: Decreased Activ Tolerance, Decreased UE Strength, Impaired Coordination, Impaired I ADL's, Impaired Self-Care Skills, Restricted Funct UE ROM Discharge Recommendations Plan/Recommendations: Continue POC Therapy D/C Recommendations: Home w/ Family Support, Occupational Therapy Home Care Equpiment Recommendations-D/C: Hip Kit Treatment Plan/Plan of Care Treatment,Training & Education: Yes Patient would benefit from OT for education, treatment and training to promote independence in ADL's, mobility, safety and/or upper extremity function for ADL' s. Plan of Care: ADL Retraining, Caregiver Training, Functional Mobility, Group Exercise/Act as Ind, UE Funct Exercise/Act Treatment Duration: Oct 06, 2018 Frequency: At least 5 of 7 days/Wk (IRF) Estimated Hrs Per Day: 1.5 hours per day Agreement: Yes Rehab Potential: Good Time/GCodes Start Time: 08:10 Stop Time: 08:55 Total Time Billed (hr/min): 45 Billed Treatment Time 1, ADL x 3 GAURANG RITCHIE OT Sep 24, 2018 09:06
--- NOTE | 2018-09-24 10:50 | Physical Therapy Daily Note ---
PT Daily Note-Current Subjective Pt. and explain some of his recent history. Pt. states he is still pretty tired but grateful he is doing so well. shows concern regarding pts. gait pattern. She notes an adduction of RLE during swing phase which pt then ultimately lands foot in corrected position ( swings in and back out) Pain Location: No Pain Reported Appearance min dyspnea with activity Transfers Therapy Code Descriptions/Definitions Functional [place] Measure: 0=Not Assessed/NA 4=Minimal Assistance 1=Total Assistance 5=Supervision or Setup 2=Maximal Assistance 6=Modified [place] 3=Moderate Assistance 7=Complete [place] Therapy Quality Codes: 6 Independent with activity with or without an assistive device 5 Patient requires set up or clean up by helper. Patient completes activity by themselves 4 Supervision or touching assist (CGA). [place] provide cues , steadying assist 3 The helper provides less than half the effort to complete the activity 2 The helper provides more than half the effort to complete the activity 1 Dependent. The helper does all the effort to complete an activity 7 Patient refused to complete or attempt activity 9 The patient did not perform the activity before the current illness or injury 88 Not attempted due to Medical conditions or safety concerns Transfers (B, C, W/C) (FIM): 6 Scootin Sit to/from Stand: 6 sit to stand with good technique using the chest brace hand hold device given to him after bypass graft surg. No pushing with UEs was noted Weight Bearing Right Lower Extremity: Right Full Weight Bearing Left Lower Extremity: Left Full Weight Bearing Sternal precautions Gait Training Does the Patient Walk?: Yes Gait (FIM): 5 Distance (FIM): 3=150 ft (160x2) Gait Level of Assist: 5 Gait Persons Needed: 1 Gait Assistive Device: FWW this TICKET MANAGER watched pt. with and without shoes. Pt also alerted to his gait pattern on RLE with adduction and back to normal during swing phase. Pts. gait was more normalized with shoes (R foot with diabetic shoe device) and pts concentration on correcting this Exercises NuStep Minutes: 10 NuStep Workload: 2 Assessment Current Status: Good Progress good progress, very supportive and helpful. They spoke of likely DC by Tues or Wed PT Short Term Goals Short Term Goals Time Frame: Sep 29, 2018 Transfers (B,C,W/C) (FIM): 5 Gait (FIM): 4 Distance (FIM): 3=150 ft Gait Assistive Device: FWW Stairs (FIM): 2 # of Steps: 4 PT Resources Representative Goals Long-Term Goals PT Resources Representative Goals Time Frame: Oct 06, 2018 Transfers (B,C,W/C) (FIM): 7 Sit to Lying (QC): 6 Lying-Sitting on Side/Bed(QC): 6 Sit to Stand (QC): 6 Rollin Roll Left to Right (QC): 6 Chair/Cpa-ma-Gralg Xfer(QC): 6 Car Transfer (QC): 6 Does the Patient Walk: Yes Gait (FIM): 6 Gait distance (FIM): 3=150 ft Distance: 300 ft Walk 10 feet (QC): 6 Walk 10ft-Uneven Surface(QC): 6 Walk 50ft with 2 Turns (QC): 6 Walk 150 ft (QC): 6 Gait Assistive Device: FWW Does the Pt use WC or Scooter?: No Stairs (FIM): 6 # of Steps: 12 1 Step (curb) (QC): 6 4 Steps (QC): 6 12 Steps (QC): 6 Picking up an Object (QC): 4 (use of a five piece expansion maker hand) PT Plan Treatment/Plan Treatment Plan: Continue Plan of Care Treatment Plan: Bed Mobility, Education, Functional Activity Donovan, Functional Strength, Group Therapy, Gait, Safety, Therapeutic Exercise, Transfers Treatment Duration: Oct 06, 2018 Frequency: Modified Program (IRF) Estimated Hrs Per Day: 1.5 hours per day Patient and/or Family Agrees t: Yes Safety Risks/Education Patient Education: Gait Training, Transfer Techniques, Correct Positioning, Disease Process, Safety Issues Teaching Recipient: Patient Teaching Methods: Demonstration, Discussion Response to Teaching: Verbalize Understanding, Return Demonstration, Reinforcement Needed Time/GCodes Time In: 1010 Time Out: 1040 Total Billed Treatment Time: 30 Total Billed Treatment 1,EX10m,GT20m G Codes Necessary: No KASHMIR ROWLEY TICKET MANAGER Sep 24, 2018 10:50
--- NOTE | 2018-09-24 12:38 | PM&R Progress Note ---
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 Pond at [facility]. Apparently he had bleeding in his chest tube shortly after his bypass surgery and hemoglobin decreased to 7 from baseline 14 and patient was managed aggressively and given transfusions and then 2 days later had been doing well but suffered a new onset seizure neurology was consulted and he was placed on Keppra but then had an abrupt episode of right-sided weakness and assumed it was a stroke in CT scanner was down and unavailable so he was transferred to [facility] for CT scan and possibility of a TPA and that test was done and no evidence of any thrombosis so he was admitted there on the neurosurgery unit monitor closely and patient appeared to regain function of the right hand and right foot that was unusual after suffering a stroke so 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 Patient overall is doing well reports the pain is from the bypass graft and sternotomy and is able to get by with Tylenol and Ultram. He does use CPAP machine at night and is able to take 2 Tylenol and Ultram and get a good night' s rest. Bowel function is normal and urination is normal. He had side effects from narcotics and benzodiazepines so will be held. did mention that he has drank a lot of alcohol for the last many years and she thought it was resolved but it appears that he was drinking regularly when she did not realize it and this seizure could very well have been a withdrawal from alcohol seizure so we will keep that in mind but maintained on Keppra. He also had an episode of atrial fibrillation following bypass surgery placed on amiodarone and patient is doing well from that standpoint. Dr. Cr will be consulted. Subjective/Events-last exam Pt is doing well and his is very impressed with his right sided weakness improvement Venofer will be ordered since Hgb low, checking iron, he did lose a lot of blood during the chest tube at [facility]. Iron level is still pending Checking Hgb A1C. Level is still pendin and tolerating the low dose now Diagnosed new hypothyroidism will place on low dose thyroid. Magnesium level being managed by cardiology. On CPAP at night. Bowel movement last night. Appears to be Beny's paralysis on the right side back to about 75% of his baseline he reports.He is even a bit better than yesterday he reports Edema noted right leg [place] will be removed every other one on 09/27/18 Review of Systems General: Fatigue Neurological: Weakness Objective Exam Vital Signs Vital Signs Date Time Temp Pulse Resp B/P (MAP) Pulse Ox O2 Delivery O2 Flow Rate FiO2 09/24/18 17:55 98.0 70 18 128/75 (92) 09/24/18 15:52 93 Room Air Capillary Refill : General Appearance: No Apparent Distress, WD/WN, Chronically ill HEENT: PERRL/EOMI, Normal ENT Inspection, Pharynx Normal, Moist Mucous Membranes Neck: Full Range of Motion, Normal Inspection, Non Tender Respiratory: Lungs Clear, Normal Breath Sounds, No Accessory Muscle Use, No Respiratory Distress, Crackles, Decreased Breath Sounds Cardiovascular: Regular Rate, Rhythm, No Edema Gastrointestinal: Normal Bowel Sounds, No Organomegaly, No Pulsatile Mass, Non Tender, Soft Back: Normal Inspection, No CVA Tenderness, No Vertebral Tenderness, Decreased Range of Motion Extremity: Normal Capillary Refill, Normal Inspection, Normal Range of Motion, Non Tender, No Calf Tenderness, Pedal Edema (right > Left) Neurologic/Psychiatric: Alert, Oriented x3, Normal Mood/Affect, mixed signal design engineer II-XII Norm as Tested, Motor Weakness (right 4/5 upper and lower improved) Skin: Normal Color, Warm/Dry Lymphatic: No Adenopathy Results/Procedures Lab Patient resulted labs reviewed. Assessment/Plan Assessment and Plan Assess & Plan/Chief Complaint Assessment: Right-sided weakness source of stroke versus Beny's paralysis Recent bypass surgery on 09/13/[address] Pond Acute blood loss in chest tube after bypass surgery Iron deficiency anemia Diabetes mellitus Obstructive sleep apnea Episode of atrial fibrillation with rapid ventricular response maintain on amiodarone Hypertension Chronic renal insufficiency New onset seizure could be alcohol withdrawal seizure maintained on Keppra Side effects with benzodiazepines and narcotics will avoid Thrombocytosis New onset hypothyroidism started on low dose due to cardiac issues recent CABG Edema Plan: Intensive rehab therapies Continue all meds from [facility] neurosurgery unit Consult cardiology Monitor closely Maintain on low dose thyroid Staple removal from right leg graft sites this week every other starting 09/27/18 (1) CVA (cerebral vascular accident) (2) Beny's paralysis (postepileptic) (3) NATE on CPAP (4) HTN (hypertension) (5) Anemia, posthemorrhagic, acute (6) Seizure (7) Renal insufficiency (8) Hyperlipidemia (9) CAD (coronary artery disease) Onset Date: 09/19/2014 (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
--- NOTE | 2018-09-24 15:31 | Progress Note-Cardiology ---
Cardiology SOAP Progress Note Subjective: No cp or palp or syncope or shortness of breath Objective: I&O/Vital Signs 09/24/18 09/24/18 09/24/18 09/24/18 05:18 07:00 08:00 08:17 Temp 98.2 Pulse 64 70 69 Resp 16 B/P (MAP) 134/74 (94) 128/79 (95) Pulse Ox 97 O2 Delivery NIV CPAP Room Air 09/24/18 13:00 Pulse 70 09/24/18 00:00 Intake Total 800 ml Output Total 700 ml Balance 100 ml Weight (Pounds): 260 Weight (Ounces): 0.0 Weight (Calculated Kilograms): 117.940591 Constitutional: AAO x 3, well-developed, well-nourished Respiratory: chest expansion is symmetric, chest is bilaterally symmetric, lungs clear to auscultation; No rhonchi, No wheezing Cardiovascular: regular rate-rhythm; No JVD; S1 and S2 Gastrointestional: round, audible bowel sounds Extremities: swelling (bilat LE swelling) Neurologic/Psychiatric: grossly intact, power is 5/5 both on sides Skin: other (ACW mid-line incision with edges approx, no redness or drainage; RLE with incisions with rose in place, no drainage or redness noted) Results/Procedures: Labs Laboratory Tests 09/23/18 06:00 A/P: Assessment: Multivessel coronary artery disease per cardiac cath of 08-30-18. This consists of 80 to 90% mid vessel bifurcation stenosis of left anterior descending, 50% mid vessel stenosis of the left circumflex and 70 to 80% mid vessel stenosis of the right coronary. Elevated left ventricular end-diastolic pressure. Well- preserved global left ventricular systolic function with ejection fraction approximately 50% and with mild to moderate inferior hypokinesis of the left ventricle. CABG on 09-13-[address] Cantu at [facility] in [place], [place] consisting of grafts x 4 with non-reversed saphenous vein grafts to the diagonal , ramus marginalis and posterior descending branch of the RCA arteries and the left internal thoracic artery graft to the anterior descending coronary artery. P. A-fib post CABG for which he was started on Amiodarone - converted to SR Eliquis for stroke prophylaxis H/O postoperative acute encephalopathy H/O seizures post CABG for which he was started on Keppra Episode of left-sided paralysis for which he was transferred to [place], [place] d/t inability to obtain CTA at [place], [place]. CT of head without contrast is reported to show no acute intracranial abnormality, cerebral atrophy with periventricular chronic ischemic changes on note 09-16-[address] Mesa of neurology services at [facility]. 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 Symptoms have resolved. Echocardiogram of 09-19-18 at [facility] in [place], [place] by Dr. Powell showed LVEF 50-55%. Aortic valve thickening with mod to mod regurg. Possible, very small pericardial effusion. H/O blood transfusion reaction following CABG Mild anemia - management per medical services Hypothyroidism - management per medical services Echo on 06/23/18: LVEF 55-60%, Mild AI, PASP 35 mmHg, normal right heart size. Small ASD is reported on an echo of 08/14/14. WEI of 09-13-2014 is suggestive of a small PFO with a small amount of left to right shunt. LVEF 50%. Trivial to mild TR. Cardiac cath of 09-18-2014 showed no evidence of intracardiac shunt. LVEF 60%. 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
[2018-09-24] MEDS: RT-ALBUTEROL SULF 2.5 MG/3 ML PRE-MIX VIAL IH PRN (15:52)
[2018-09-24 17:55] VITALS: BP 128/75
[2018-09-24] MEDS: ATORVASTATIN 40 MG (LIPITOR) TABLET PO SCH (20:32)
[2018-09-25 05:13] VITALS: BP 130/69
[2018-09-25] MEDS: LEVOTHYROXINE 25 MCG (LEVOTHROID) TAB PO SCH (06:09)
[2018-09-25] MEDS: KCL 20 MEQ TAB (K-DUR) PO SCH (06:09)
[2018-09-25] MEDS: MULTIVIT W/MINERALS TAB (THERAGRAN M) PO SCH (06:09)
[2018-09-25] MEDS: ACETAMINOPHEN 500 MG TAB (TYLENOL) PO PRN ×2 (06:12→20:38)
[2018-09-25] MEDS: RT-ALBUTEROL SULF 2.5 MG/3 ML PRE-MIX VIAL INH SCH ×2 (08:31→23:32)
[2018-09-25 08:49] VITALS: BP 136/82
[2018-09-25] MEDS: LEVETIRACETAM 500 MG (KEPPRA) TAB PO SCH ×2 (08:51→20:37)
[2018-09-25] MEDS: PANTOPRAZOLE 40 MG (PROTONIX) TAB PO SCH (08:51)
[2018-09-25] MEDS: FUROSEMIDE 40 MG (LASIX) TAB PO SCH (08:51)
[2018-09-25] MEDS: ASPIRIN 81 MG CHEW (CHILDREN'S ASA) PO SCH (08:51)
[2018-09-25] MEDS: AMIODARONE 200 MG (CORDARONE) TAB PO SCH (08:51)
[2018-09-25] MEDS: amLODIPine 10 MG (NORVASC) TAB PO SCH (08:52)
[2018-09-25] MEDS: FLUoxetine HCL 20 MG (PROzac) CAP PO SCH (08:52)
[2018-09-25] MEDS: APIXABAN 5 MG (ELIQUIS) TABLET PO SCH ×2 (08:52→20:37)
[2018-09-25] MEDS: meTOprolol TARTRATE 50 MG (LOPRESSOR) TAB PO SCH ×2 (08:52→17:20)
[2018-09-25] MEDS: IRON SUCROSE 200 MG/10 ML (VENOFER) VIAL IV SCH (08:53)
--- NOTE | 2018-09-25 10:41 | PM&R Progress Note ---
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 Pond at [facility]. Apparently he had bleeding in his chest tube shortly after his bypass surgery and hemoglobin decreased to 7 from baseline 14 and patient was managed aggressively and given transfusions and then 2 days later had been doing well but suffered a new onset seizure neurology was consulted and he was placed on Keppra but then had an abrupt episode of right-sided weakness and assumed it was a stroke in CT scanner was down and unavailable so he was transferred to [facility] for CT scan and possibility of a TPA and that test was done and no evidence of any thrombosis so he was admitted there on the neurosurgery unit monitor closely and patient appeared to regain function of the right hand and right foot that was unusual after suffering a stroke so 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 Patient overall is doing well reports the pain is from the bypass graft and sternotomy and is able to get by with Tylenol and Ultram. He does use CPAP machine at night and is able to take 2 Tylenol and Ultram and get a good night' s rest. Bowel function is normal and urination is normal. He had side effects from narcotics and benzodiazepines so will be held. did mention that he has drank a lot of alcohol for the last many years and she thought it was resolved but it appears that he was drinking regularly when she did not realize it and this seizure could very well have been a withdrawal from alcohol seizure so we will keep that in mind but maintained on Keppra. He also had an episode of atrial fibrillation following bypass surgery placed on amiodarone and patient is doing well from that standpoint. Dr. Cr will be consulted. Subjective/Events-last exam Pt is doing well and his is very impressed with his right sided weakness improvement again today and every day since arrival Venofer maintained since Hgb low, checking iron, he did lose a lot of blood during the chest tube at [facility]. Iron level is still pending Checking Hgb A1C. Level is still pending and tolerating the low dose now Diagnosed new hypothyroidism will place on low dose thyroid. Magnesium level being managed by cardiology. On CPAP at night. Bowel movement last night. Appears to be Beny's paralysis on the right side back to about 75% of his baseline he reports.He is even a bit better than yesterday he reports Edema noted right leg improved Farhana will be removed every other one on 09/27/18 Review of Systems General: Fatigue Cardiovascular: Edema Neurological: Weakness Objective Exam Vital Signs Vital Signs Date Time Temp Pulse Resp B/P (MAP) Pulse Ox O2 Delivery O2 Flow Rate FiO2 09/25/18 19:00 60 09/25/18 17:43 97.6 20 120/73 (89) 96 Room Air Capillary Refill : General Appearance: No Apparent Distress, WD/WN, Chronically ill HEENT: PERRL/EOMI, Normal ENT Inspection, Pharynx Normal, Moist Mucous Membranes Neck: Full Range of Motion, Normal Inspection, Non Tender Respiratory: Lungs Clear, Normal Breath Sounds, No Accessory Muscle Use, No Respiratory Distress, Crackles, Decreased Breath Sounds Cardiovascular: Regular Rate, Rhythm, No Edema Gastrointestinal: Normal Bowel Sounds, No Organomegaly, No Pulsatile Mass, Non Tender, Soft Back: Normal Inspection, No CVA Tenderness, No Vertebral Tenderness, Decreased Range of Motion Extremity: Normal Capillary Refill, Normal Inspection, Normal Range of Motion, Non Tender, No Calf Tenderness, Pedal Edema (right > Left) Neurologic/Psychiatric: Alert, Oriented x3, Normal Mood/Affect, senior auditor II-XII Norm as Tested, Motor Weakness (right 4/5 upper and lower improved) Skin: Normal Color, Warm/Dry Lymphatic: No Adenopathy Results/Procedures Lab Patient resulted labs reviewed. Assessment/Plan Assessment and Plan Assess & Plan/Chief Complaint Assessment: Right-sided weakness source of stroke versus Beny's paralysis Recent bypass surgery on 09/13/[address] Pond Acute blood loss in chest tube after bypass surgery Iron deficiency anemia Diabetes mellitus Obstructive sleep apnea Episode of atrial fibrillation with rapid ventricular response maintain on amiodarone Hypertension Chronic renal insufficiency New onset seizure could be alcohol withdrawal seizure maintained on Keppra Side effects with benzodiazepines and narcotics will avoid Thrombocytosis New onset hypothyroidism started on low dose due to cardiac issues recent CABG Edema Plan: Intensive rehab therapies Continue all meds from [place] neurosurgery unit Consult cardiology Monitor closely Maintain on low dose thyroid Staple removal from right leg graft sites this week every other starting 09/27/18 Check labs in am (1) CVA (cerebral vascular accident) (2) Beny's paralysis (postepileptic) (3) NATE on CPAP (4) HTN (hypertension) (5) Anemia, posthemorrhagic, acute (6) Seizure (7) Renal insufficiency (8) Hyperlipidemia (9) CAD (coronary artery disease) Onset Date: 09/19/2014 (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
[2018-09-25 17:43] VITALS: BP 120/73
[2018-09-25] MEDS: ATORVASTATIN 40 MG (LIPITOR) TABLET PO SCH (20:37)
[2018-09-26 05:47] VITALS: BP 145/78
[2018-09-26] MEDS: MULTIVIT W/MINERALS TAB (THERAGRAN M) PO SCH (05:56)
[2018-09-26] MEDS: LEVOTHYROXINE 25 MCG (LEVOTHROID) TAB PO SCH (05:56)
[2018-09-26] MEDS: KCL 20 MEQ TAB (K-DUR) PO SCH (05:56)
[2018-09-26] MEDS: ACETAMINOPHEN 500 MG TAB (TYLENOL) PO PRN (06:00)
[2018-09-26 06:27] LABS: BASOPHILS % (AUTO) 0 % (0-10); EOSINOPHILS # (AUTO) 0.1 10^3/uL (0.0-0.3); EOSINOPHILS % (AUTO) 1 % (0-10); HEMATOCRIT 30 % (40-54); HEMOGLOBIN 9.1 G/DL (13.3-17.7); LYMPHOCYTES # (AUTO) 1.8 X 10^3 (1.0-4.0); LYMPHOCYTES % (AUTO) 18 % (12-44); MEAN CORPUSCULAR HEMOGLOBIN 27 PG (25-34); MEAN CORPUSCULAR HGB CONC 31 G/DL (32-36); MEAN CORPUSCULAR VOLUME 87 FL (80-99); MEAN PLATELET VOLUME 9.4 FL (7.4-10.4); MONOCYTES # (AUTO) 0.8 X 10^3 (0.0-1.0); MONOCYTES % (AUTO) 8 % (0-12); NEUTROPHILS # (AUTO) 7.3 X 10^3 (1.8-7.8); NEUTROPHILS % (AUTO) 73 % (42-75); PLATELET COUNT 442 10^3/uL (130-400); RED CELL DISTRIBUTION WIDTH 14.9 % (10.0-14.5)
[2018-09-26 06:44] LABS: ALANINE AMINOTRANSFERASE 64 U/L (0-55); ALBUMIN 3.2 GM/DL (3.2-4.5); ALKALINE PHOSPHATASE 158 U/L (40-136); BILIRUBIN,TOTAL 0.5 MG/DL (0.1-1.0); BUN/CREATININE RATIO 13; CALCIUM 9.5 MG/DL (8.5-10.1); CARBON DIOXIDE 23 MMOL/L (21-32); CHLORIDE 103 MMOL/L (98-107); CREATININE SERUM 1.16 MG/DL (0.60-1.30); GFR ESTIMATED > 60; GLUCOSE 108 MG/DL (70-105); POTASSIUM 4.3 MMOL/L (3.6-5.0); SODIUM 135 MMOL/L (135-145); TOTAL PROTEIN 5.9 GM/DL (6.4-8.2)
--- NOTE | 2018-09-26 07:53 | Occupational Ther Daily Note ---
OT Current Status-Daily Note Subjective Pt alert, sitting in recliner. Pt agrees to therapy. No c/o pain. Mental Status/Objective Patient Orientation: Person, Place, Time, Situation Therapy Code Descriptions/Definitions Functional [place] Measure: 0=Not Assessed/NA 4=Minimal Assistance 1=Total Assistance 5=Supervision or Setup 2=Maximal Assistance 6=Modified [place] 3=Moderate Assistance 7=Complete [place] Attachments: IV ADL-Treatment Pt stated that he had already eaten breakfast. Used toilet, BM, with assist. Pt does have toilet tongs though still unable to reach buttocks. Therapy Code Descriptions/Definitions Functional [place] Measure: 0=Not Assessed/NA 4=Minimal Assistance 1=Total Assistance 5=Supervision or Setup 2=Maximal Assistance 6=Modified [place] 3=Moderate Assistance 7=Complete [place] Therapy Quality Codes: 6 Independent with activity with or without an assistive device 5 Patient requires set up or clean up by helper. Patient completes activity by themselves 4 Supervision or touching assist (CGA). [place] provide cues , steadying assist 3 The helper provides less than half the effort to complete the activity 2 The helper provides more than half the effort to complete the activity 1 Dependent. The helper does all the effort to complete an activity 7 Patient refused to complete or attempt activity 9 The patient did not perform the activity before the current illness or injury 88 Not attempted due to Medical conditions or safety concerns Grooming (FIM): 5 (Supervision standing at sink using counter for balance. ) Oral Hygiene (QC): 4 Bathing (FIM): 4 (Assist with bathing buttocks. Using grabbar, hand held shower, long handle sponge and shower bench able to reach all other areas.) Bathing Location: L Arm, R Arm, L Upper Leg, R Upper Leg, L Lower Leg ( including foot), R Lower Leg (including foot), Chest, Abdomen, Perineal Area Shower/Bathe Self (QC): 3 Upper Body (FIM): 5 (After set up, pt able to complete. Assist to manipulate telemetry wires.) Upper Body Dressing (QC): 4 Lower Body Dressing (FIM): 4 (Able to doff lower body clothing using AE with SBA. Pt able to don pants with SBA. Assist to don socks.) Lower Body Dressing (QC): 3 On/Off Footwear (QC): 3 Shower Transfer(FIM): 5 (SBA using grabbar and shower bench.) OT Short Term Goals Short Term Goals Time Frame: Sep 29, 2018 Eating(FIM): 5 Grooming(FIM): 5 Bathing(FIM): 4 Upper Body Dressing(FIM): 5 Lower Body Dressing(FIM): 4 Toileting(FIM): 4 Transfers (B,C,W/C) (FIM): 5 Toilet/Commode Transfer(FIM): 5 Shower Transfer(FIM): 5 1=Demonstrate adherence to instructed precautions during ADL tasks. 2=Patient will verbalize/demonstrate understanding of assistive devices/ modifications for ADL. 3=Patient will improve strength/tolerance for activity to enable patient to perform ADL's. OT Income Tax Investigator Goals Fdc Goals Time Frame: Oct 06, 2018 Eating (FIM): 6 Eating (QC): 6 Groomin Oral Hygiene (QC): 6 Bathing(FIM): 5 Shower/Bathe Self (QC): 5 Upper Body Dressing(FIM): 6 Upper Body Dressing (QC): 6 Lower Body Dressing(FIM): 6 Lower Body Dressing (QC): 6 On/Off Footwear (QC): 6 Toileting(FIM): 6 Toileting Hygiene (QC): 6 Transfers (B,C,W/C) (FIM): 6 Toilet/Commode Transfer(FIM): 6 Toilet/Commode Transfer (QC): 6 Shower Transfer(FIM): 5 Additional Goals: 1-Demonstrate ADL Tasks, 2-Verbalize Understanding, 3- ImproveStrength/[place] 1=Demonstrate adherence to instructed precautions during ADL tasks. 2=Patient will verbalize/demonstrate understanding of assistive devices/ modifications for ADL. 3=Patient will improve strength/tolerance for activity to enable patient to perform ADL's. OT Education/Plan Problem List/Assessment Assessment: Impaired Funct Balance, Impaired Self-Care Skills Discharge Recommendations Plan/Recommendations: Continue POC Treatment Plan/Plan of Care Patient would benefit from OT for education, treatment and training to promote independence in ADL's, mobility, safety and/or upper extremity function for ADL' s. Plan of Care: ADL Retraining, Caregiver Training, Functional Mobility, Group Exercise/Act as Ind, UE Funct Exercise/Act Treatment Duration: Oct 06, 2018 Frequency: At least 5 of 7 days/Wk (IRF) Estimated Hrs Per Day: 1.5 hours per day Agreement: Yes Rehab Potential: Good Time/GCodes Start Time: 07:00 Stop Time: 08:00 Total Time Billed (hr/min): 60 Billed Treatment Time 1 visit-ADL 4 (60 min) JUAN CHAVIS Sep 26, 2018 07:53
--- NOTE | 2018-09-26 08:32 | PM&R Progress Note ---
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 Pond at [facility]. Apparently he had bleeding in his chest tube shortly after his bypass surgery and hemoglobin decreased to 7 from baseline 14 and patient was managed aggressively and given transfusions and then 2 days later had been doing well but suffered a new onset seizure neurology was consulted and he was placed on Keppra but then had an abrupt episode of right-sided weakness and assumed it was a stroke in CT scanner was down and unavailable so he was transferred to [facility] for CT scan and possibility of a TPA and that test was done and no evidence of any thrombosis so he was admitted there on the neurosurgery unit monitor closely and patient appeared to regain function of the right hand and right foot that was unusual after suffering a stroke so 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 Patient overall is doing well reports the pain is from the bypass graft and sternotomy and is able to get by with Tylenol and Ultram. He does use CPAP machine at night and is able to take 2 Tylenol and Ultram and get a good night' s rest. Bowel function is normal and urination is normal. He had side effects from narcotics and benzodiazepines so will be held. did mention that he has drank a lot of alcohol for the last many years and she thought it was resolved but it appears that he was drinking regularly when she did not realize it and this seizure could very well have been a withdrawal from alcohol seizure so we will keep that in mind but maintained on Keppra. He also had an episode of atrial fibrillation following bypass surgery placed on amiodarone and patient is doing well from that standpoint. Dr. Cr will be consulted. Subjective/Events-last exam Pt doing remarkably well at bedside Working out in the gym currently Right foot was noted to have foot drop so all he did was take it slower in rehab Labs look good Hgb 9.1 up from 8.9 Iron level at 27 and already receiving Venofer iron infusions Bowels are moving Slept very well last night Had an air leak on his CPAP machine mask that was addressed Drainage from the graft site in leg but no erythema Continue supportive care Review of Systems Neurological: Weakness Objective Exam Vital Signs Vital Signs Date Time Temp Pulse Resp B/P (MAP) Pulse Ox O2 Delivery O2 Flow Rate FiO2 09/27/18 17:15 97.4 65 18 128/76 (93) 98 Room Air Capillary Refill : General Appearance: No Apparent Distress, WD/WN, Chronically ill HEENT: PERRL/EOMI, Normal ENT Inspection, Pharynx Normal, Moist Mucous Membranes Neck: Full Range of Motion, Normal Inspection, Non Tender Respiratory: Lungs Clear, Normal Breath Sounds, No Accessory Muscle Use, No Respiratory Distress, Crackles, Decreased Breath Sounds Cardiovascular: Regular Rate, Rhythm, No Edema Gastrointestinal: Normal Bowel Sounds, No Organomegaly, No Pulsatile Mass, Non Tender, Soft Back: Normal Inspection, No CVA Tenderness, No Vertebral Tenderness, Decreased Range of Motion Extremity: Normal Capillary Refill, Normal Inspection, Normal Range of Motion, Non Tender, No Calf Tenderness, Pedal Edema (right > Left) Neurologic/Psychiatric: Alert, Oriented x3, Normal Mood/Affect, associate financial representative II-XII Norm as Tested, Motor Weakness (right 4/5 upper and lower improved) Skin: Normal Color, Warm/Dry Lymphatic: No Adenopathy Results/Procedures Lab Laboratory Tests 09/27/18 04:30 Patient resulted labs reviewed. Assessment/Plan Assessment and Plan Assess & Plan/Chief Complaint Assessment: Right-sided weakness source of stroke versus Beny's paralysis Recent bypass surgery on 09/13/[address] Pond Acute blood loss in chest tube after bypass surgery Iron deficiency anemia Diabetes mellitus Obstructive sleep apnea Episode of atrial fibrillation with rapid ventricular response maintain on amiodarone Hypertension Chronic renal insufficiency New onset seizure could be alcohol withdrawal seizure maintained on Keppra Side effects with benzodiazepines and narcotics will avoid Thrombocytosis New onset hypothyroidism started on low dose due to cardiac issues recent CABG Edema Plan: Intensive rehab therapies Continue all meds from [facility] unit Consult cardiology Monitor closely Maintain on low dose thyroid Staple removal from right leg graft sites this week every other starting 09/27/18 Check labs in am (1) CVA (cerebral vascular accident) (2) Beny's paralysis (postepileptic) (3) NATE on CPAP (4) HTN (hypertension) (5) Anemia, posthemorrhagic, acute (6) Seizure (7) Renal insufficiency (8) Hyperlipidemia (9) CAD (coronary artery disease) Onset Date: 09/19/2014 (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
--- NOTE | 2018-09-26 09:00 | Physical Therapy Daily Note ---
PT Daily Note-Current Subjective Patient in recliner pre tx, agrees to PT, has pain of 4-5/10 chest incision pain. Appearance Patient in recliner post tx with nurse call, phone, tray, all needs met, family in the room. Mental Status Patient Orientation: Person, Place, Situation Transfers Therapy Code Descriptions/Definitions Functional [place] Measure: 0=Not Assessed/NA 4=Minimal Assistance 1=Total Assistance 5=Supervision or Setup 2=Maximal Assistance 6=Modified [place] 3=Moderate Assistance 7=Complete [place] Therapy Quality Codes: 6 Independent with activity with or without an assistive device 5 Patient requires set up or clean up by helper. Patient completes activity by themselves 4 Supervision or touching assist (CGA). [place] provide cues , steadying assist 3 The helper provides less than half the effort to complete the activity 2 The helper provides more than half the effort to complete the activity 1 Dependent. The helper does all the effort to complete an activity 7 Patient refused to complete or attempt activity 9 The patient did not perform the activity before the current illness or injury 88 Not attempted due to Medical conditions or safety concerns Transfers (B, C, W/C) (FIM): 6 Sit to/from Stand: 6 Bed to/from Chair: 6 Patient is compliant with his chest precautions. Weight Bearing Right Lower Extremity: Right Full Weight Bearing Left Lower Extremity: Left Full Weight Bearing Sternal precautions Gait Training Gait (FIM): 6 Distance: 250'x3 Gait Assistive Device: FWW Slow but steady ambulation, no circumduction of right leg today. Exercises Standing: Hip Abduction, Hamstring curls, Heel/toe raises, Marching, Mini squats Standing Reps: 15 Standing hip flexion with strait leg x15 each side. NuStep Minutes: 15 NuStep Workload: 4 Treatments transfers, ambulation, functional strengthening Assessment Current Status: Fair Progress improving endurance PT Short Term Goals Short Term Goals Time Frame: Sep 29, 2018 Transfers (B,C,W/C) (FIM): 5 Gait (FIM): 4 Distance (FIM): 3=150 ft Gait Assistive Device: FWW Stairs (FIM): 2 # of Steps: 4 PT Correction Goals Fibrous Wallboard Inspector Goals PT Fibrous Wallboard Inspector Goals Time Frame: Oct 06, 2018 Transfers (B,C,W/C) (FIM): 7 Sit to Lying (QC): 6 Lying-Sitting on Side/Bed(QC): 6 Sit to Stand (QC): 6 Rollin Roll Left to Right (QC): 6 Chair/Cdl-tg-Ouhkn Xfer(QC): 6 Car Transfer (QC): 6 Does the Patient Walk: Yes Gait (FIM): 6 Gait distance (FIM): 3=150 ft Distance: 300 ft Walk 10 feet (QC): 6 Walk 10ft-Uneven Surface(QC): 6 Walk 50ft with 2 Turns (QC): 6 Walk 150 ft (QC): 6 Gait Assistive Device: FWW Does the Pt use WC or Scooter?: No Stairs (FIM): 6 # of Steps: 12 1 Step (curb) (QC): 6 4 Steps (QC): 6 12 Steps (QC): 6 Picking up an Object (QC): 4 (use of a prompt care rn) PT Plan Problem List Problem List: Activity Tolerance, Functional Strength, Safety, Balance, Gait, Transfer Treatment/Plan Treatment Plan: Continue Plan of Care Treatment Plan: Bed Mobility, Education, Functional Activity Donovan, Functional Strength, Group Therapy, Gait, Safety, Therapeutic Exercise, Transfers Treatment Duration: Oct 06, 2018 Frequency: Modified Program (IRF) Estimated Hrs Per Day: 1.5 hours per day Patient and/or Family Agrees t: Yes Safety Risks/Education Patient Education: Gait Training, Transfer Techniques, Correct Positioning, Safety Issues Teaching Recipient: Patient Teaching Methods: Demonstration, Discussion Response to Teaching: Reinforcement Needed Time/GCodes Time In: 0800 Time Out: 0900 Total Billed Treatment Time: 60 Total Billed Treatment 1 visit GT 30' EX 30' JEROD ORDOÑEZ PT Sep 26, 2018 08:59
[2018-09-26] MEDS: amLODIPine 10 MG (NORVASC) TAB PO SCH (09:09)
[2018-09-26] MEDS: LEVETIRACETAM 500 MG (KEPPRA) TAB PO SCH ×2 (09:09→21:06)
[2018-09-26] MEDS: PANTOPRAZOLE 40 MG (PROTONIX) TAB PO SCH (09:09)
[2018-09-26] MEDS: AMIODARONE 200 MG (CORDARONE) TAB PO SCH (09:09)
[2018-09-26] MEDS: FUROSEMIDE 40 MG (LASIX) TAB PO SCH (09:10)
[2018-09-26] MEDS: meTOprolol TARTRATE 50 MG (LOPRESSOR) TAB PO SCH ×2 (09:10→18:50)
[2018-09-26] MEDS: APIXABAN 5 MG (ELIQUIS) TABLET PO SCH ×2 (09:10→21:06)
[2018-09-26] MEDS: FLUoxetine HCL 20 MG (PROzac) CAP PO SCH (09:10)
[2018-09-26] MEDS: ASPIRIN 81 MG CHEW (CHILDREN'S ASA) PO SCH (09:10)
[2018-09-26] MEDS: RT-ALBUTEROL SULF 2.5 MG/3 ML PRE-MIX VIAL INH SCH ×2 (09:29→20:35)
--- NOTE | 2018-09-26 10:50 | NUR ---
Pastoral care visit, offered support.
[2018-09-26] MEDS: RT-ALBUTEROL SULF 2.5 MG/3 ML PRE-MIX VIAL IH PRN (11:16)
--- NOTE | 2018-09-26 11:21 | Progress Note-Cardiology ---
Cardiology SOAP Progress Note Subjective: Up with PT. Feeling stronger. No c/o CP or palpitations. Feels bothered with LE swelling. Objective: I&O/Vital Signs 09/27/18 09/27/18 09/27/18 09/27/18 05:12 07:00 08:46 09:05 Temp 98.6 Pulse 67 72 73 Resp 20 B/P (MAP) 150/89 (109) 132/76 (94) Pulse Ox 98 O2 Delivery Room Air Room Air 09/27/18 13:00 Pulse 65 09/27/18 00:00 Intake Total 1150 ml Balance 1150 ml Weight (Pounds): 260 Weight (Ounces): 0.0 Weight (Calculated Kilograms): 117.710320 Constitutional: AAO x 3, well-developed, well-nourished Respiratory: chest expansion is symmetric, chest is bilaterally symmetric, lungs clear to auscultation; No rhonchi, No wheezing Cardiovascular: regular rate-rhythm; No JVD; S1 and S2 Gastrointestional: round, audible bowel sounds Extremities: swelling (bilat 2-3+ LE swelling) Neurologic/Psychiatric: grossly intact, power is 5/5 both on sides Skin: other (ACW mid-line incision with edges approx, no redness or drainage; RLE with incisions with rose in place, no drainage or redness noted) Results/Procedures: Labs Laboratory Tests 09/27/18 04:30: Sodium Level 136, Potassium Level 4.3, Chloride Level 103, Carbon Dioxide Level 22, Anion Gap 11, Blood Urea Nitrogen 15, Creatinine 1.16, Estimat Glomerular Filtration Rate > 60, BUN/Creatinine Ratio 13, Glucose Level 102, Calcium Level 9.5, Magnesium Level 1.9 Laboratory Tests 09/26/18 05:43 09/27/18 04:30 A/P: Assessment: Multivessel coronary artery disease per cardiac cath of 08-30-18. This consists of 80 to 90% mid vessel bifurcation stenosis of left anterior descending, 50% mid vessel stenosis of the left circumflex and 70 to 80% mid vessel stenosis of the right coronary. Elevated left ventricular end-diastolic pressure. Well- preserved global left ventricular systolic function with ejection fraction approximately 50% and with mild to moderate inferior hypokinesis of the left ventricle. CABG on 09-13-[address] Cantu at [facility] in [place], [place] consisting of grafts x 4 with non-reversed saphenous vein grafts to the diagonal , ramus marginalis and posterior descending branch of the RCA arteries and the left internal thoracic artery graft to the anterior descending coronary artery. P. A-fib post CABG for which he was started on Amiodarone - converted to SR Eliquis for stroke prophylaxis H/O postoperative acute encephalopathy H/O seizures post CABG for which he was started on Keppra Episode of left-sided paralysis for which he was transferred to [place], [place] d/t inability to obtain CTA at [place], [place]. CT of head without contrast is reported to show no acute intracranial abnormality, cerebral atrophy with periventricular chronic ischemic changes on note 09-16-[address] [place] of neurology services at [facility]. 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 Symptoms have resolved. Echocardiogram of 09-19-18 at [facility] in [place], [place] by Dr. Powell showed LVEF 50-55%. Aortic valve thickening with mod to mod regurg. Possible, very small pericardial effusion. H/O blood transfusion reaction following CABG Mild anemia - management per medical services Hypothyroidism - management per medical services Echo on 06/23/18: LVEF 55-60%, Mild AI, PASP 35 mmHg, normal right heart size. Small ASD is reported on an echo of 08/14/14. WEI of 09-13-2014 is suggestive of a small PFO with a small amount of left to right shunt. LVEF 50%. Trivial to mild TR. Cardiac cath of 09-18-2014 showed no evidence of intracardiac shunt. LVEF 60%. Normal LVEDP H/O acute diastolic CHF in Jun 2018 VQ lung scan of Jun 23, 2018 showed low probability of PE DM II with h/o diabetic nephropathy and CKD 3 Bilateral leg swelling Hypertension with LVH on surface ECG Obesity with BMI approx 36 Hyperlipidemia, difficult control despite combination therapy with atorvastatin and fenofibric acid Chronic joint and back pain due to DJD Larios's esophagitis Plan: * Continue current card regimen * Additional Lasix today * Advise compression stockings on in the morning and off at hs * Monitor labs from time to time Physician Assessment Physician Assessment No new symptoms. Leg swelling continues Cor: reg Lungs: fair to good bilat air entry Ext: bilat leg edema A&R * As documented in our note above that I updated (italics) and as noted below * Continue current regimen * PRN furosemide for leg swelling (that seems related to venous insuff) TRACIE JOHNSON COTTON FARMER Sep 26, 2018 11:21 YISSEL SHOEMAKER MD FACP [facility] Sep 27, 2018 16:33
--- NOTE | 2018-09-26 11:57 | Physical Therapy Daily Note ---
PT Daily Note-Current Subjective Patient in recliner pre tx, agrees to PT, no complaints of pain Appearance Patient in recliner post tx with nurse call, phone, tray, all needs met. Mental Status Patient Orientation: Person, Place, Situation Transfers Therapy Code Descriptions/Definitions Functional [place] Measure: 0=Not Assessed/NA 4=Minimal Assistance 1=Total Assistance 5=Supervision or Setup 2=Maximal Assistance 6=Modified [place] 3=Moderate Assistance 7=Complete [place] Therapy Quality Codes: 6 Independent with activity with or without an assistive device 5 Patient requires set up or clean up by helper. Patient completes activity by themselves 4 Supervision or touching assist (CGA). [place] provide cues , steadying assist 3 The helper provides less than half the effort to complete the activity 2 The helper provides more than half the effort to complete the activity 1 Dependent. The helper does all the effort to complete an activity 7 Patient refused to complete or attempt activity 9 The patient did not perform the activity before the current illness or injury 88 Not attempted due to Medical conditions or safety concerns Transfers (B, C, W/C) (FIM): 6 Sit to/from Stand: 6 Bed to/from Chair: 6 Patient is compliant with his sternal precautions Weight Bearing Right Lower Extremity: Right Full Weight Bearing Left Lower Extremity: Left Full Weight Bearing Sternal precautions Gait Training Gait (FIM): 6 Distance: 300'x2 Gait Assistive Device: FWW slow, steady ambulation Stair Training Stair Training: Handrails/: 2 handrails Stairs (FIM): 5 #of Steps: 12 Stairs: Pattern: Step to Level of Assist: 5 Patient does not bear any weight through his arms Exercises Seated Therapy Exercises: Hip abd/add (with YTB and pillow) Seated Reps: 20 LAQ alternating for 5 min Treatments transfers, ambulation, functional strengthening, stair training Assessment Current Status: Fair Progress improving endurance PT Short Term Goals Short Term Goals Time Frame: Sep 29, 2018 Transfers (B,C,W/C) (FIM): 5 Gait (FIM): 4 Distance (FIM): 3=150 ft Gait Assistive Device: FWW Stairs (FIM): 2 # of Steps: 4 PT Jail Goals Car Dumper Operator Goals PT Jail Goals Time Frame: Oct 06, 2018 Transfers (B,C,W/C) (FIM): 7 Sit to Lying (QC): 6 Lying-Sitting on Side/Bed(QC): 6 Sit to Stand (QC): 6 Rollin Roll Left to Right (QC): 6 Chair/Zar-mc-Yjrkl Xfer(QC): 6 Car Transfer (QC): 6 Does the Patient Walk: Yes Gait (FIM): 6 Gait distance (FIM): 3=150 ft Distance: 300 ft Walk 10 feet (QC): 6 Walk 10ft-Uneven Surface(QC): 6 Walk 50ft with 2 Turns (QC): 6 Walk 150 ft (QC): 6 Gait Assistive Device: FWW Does the Pt use WC or Scooter?: No Stairs (FIM): 6 # of Steps: 12 1 Step (curb) (QC): 6 4 Steps (QC): 6 12 Steps (QC): 6 Picking up an Object (QC): 4 (use of a service desk technician) PT Plan Problem List Problem List: Activity Tolerance, Functional Strength, Safety, Balance, Gait, Transfer, Bed Mobility Treatment/Plan Treatment Plan: Continue Plan of Care Treatment Plan: Bed Mobility, Education, Functional Activity [place], Functional Strength, Group Therapy, Gait, Safety, Therapeutic Exercise, Transfers Treatment Duration: Oct 06, 2018 Frequency: Modified Program (IRF) Estimated Hrs Per Day: 1.5 hours per day Patient and/or Family Agrees t: Yes Safety Risks/Education Patient Education: Gait Training, Transfer Techniques, Reviewed Precautions, Correct Positioning, Safety Issues Teaching Recipient: Patient Teaching Methods: Demonstration, Discussion Response to Teaching: Reinforcement Needed Time/GCodes Time In: 1125 Time Out: 1155 Total Billed Treatment Time: 30 Total Billed Treatment 1 visit GT 15' EX 15' JEROD ORDOÑEZ PT Sep 26, 2018 11:57
--- NOTE | 2018-09-26 13:35 | Occupational Ther Daily Note ---
OT Current Status-Daily Note Subjective Pt alert, sitting in recliner. Pt agrees to therapy. No c/o pain at this time. Mental Status/Objective Patient Orientation: Person, Place, Time, Situation Therapy Code Descriptions/Definitions Functional [place] Measure: 0=Not Assessed/NA 4=Minimal Assistance 1=Total Assistance 5=Supervision or Setup 2=Maximal Assistance 6=Modified [place] 3=Moderate Assistance 7=Complete [place] Attachments: IV ADL-Treatment Therapy Code Descriptions/Definitions Functional [place] Measure: 0=Not Assessed/NA 4=Minimal Assistance 1=Total Assistance 5=Supervision or Setup 2=Maximal Assistance 6=Modified [place] 3=Moderate Assistance 7=Complete [place] Therapy Quality Codes: 6 Independent with activity with or without an assistive device 5 Patient requires set up or clean up by helper. Patient completes activity by themselves 4 Supervision or touching assist (CGA). [place] provide cues , steadying assist 3 The helper provides less than half the effort to complete the activity 2 The helper provides more than half the effort to complete the activity 1 Dependent. The helper does all the effort to complete an activity 7 Patient refused to complete or attempt activity 9 The patient did not perform the activity before the current illness or injury 88 Not attempted due to Medical conditions or safety concerns Other Treatment Pt ambulated to therapy gym using FWW. Completed arm bike 15 min 15 orosco resistance to increase strength and activity tolerance for daily functional tasks. Pt then ambulated back to room and completed finger walks up wall to work on UE strengthening and ROM, R shldr stopped at 90* flexion due to sternal precautions. Pt then was able to lift LE's into bed by self to go from EOB to supine. Pt's worried that pt will not be able to lift LE's into sleigh bed at home. Then pt's asking about discharge and prescription. GASCA gave information to rehab supervisor cleaning and annealing. After therapy, pt lying in bed with call light/phone in reach. All needs met in room. OT Short Term Goals Short Term Goals Time Frame: Sep 29, 2018 Eating(FIM): 5 Grooming(FIM): 5 Bathing(FIM): 4 Upper Body Dressing(FIM): 5 Lower Body Dressing(FIM): 4 Toileting(FIM): 4 Transfers (B,C,W/C) (FIM): 5 Toilet/Commode Transfer(FIM): 5 Shower Transfer(FIM): 5 1=Demonstrate adherence to instructed precautions during ADL tasks. 2=Patient will verbalize/demonstrate understanding of assistive devices/ modifications for ADL. 3=Patient will improve strength/tolerance for activity to enable patient to perform ADL's. OT Lawyer Criminal Goals Lawyer Criminal Goals Time Frame: Oct 06, 2018 Eating (FIM): 6 Eating (QC): 6 Groomin Oral Hygiene (QC): 6 Bathing(FIM): 5 Shower/Bathe Self (QC): 5 Upper Body Dressing(FIM): 6 Upper Body Dressing (QC): 6 Lower Body Dressing(FIM): 6 Lower Body Dressing (QC): 6 On/Off Footwear (QC): 6 Toileting(FIM): 6 Toileting Hygiene (QC): 6 Transfers (B,C,W/C) (FIM): 6 Toilet/Commode Transfer(FIM): 6 Toilet/Commode Transfer (QC): 6 Shower Transfer(FIM): 5 Additional Goals: 1-Demonstrate ADL Tasks, 2-Verbalize Understanding, 3- ImproveStrength/Donovan 1=Demonstrate adherence to instructed precautions during ADL tasks. 2=Patient will verbalize/demonstrate understanding of assistive devices/ modifications for ADL. 3=Patient will improve strength/tolerance for activity to enable patient to perform ADL's. OT Education/Plan Discharge Recommendations Plan/Recommendations: Continue POC Treatment Plan/Plan of Care Patient would benefit from OT for education, treatment and training to promote independence in ADL's, mobility, safety and/or upper extremity function for ADL' s. Plan of Care: ADL Retraining, Caregiver Training, Functional Mobility, Group Exercise/Act as Ind, UE Funct Exercise/Act Treatment Duration: Oct 06, 2018 Frequency: At least 5 of 7 days/Wk (IRF) Estimated Hrs Per Day: 1.5 hours per day Agreement: Yes Rehab Potential: Good Time/GCodes Start Time: 13:00 Stop Time: 13:30 Total Time Billed (hr/min): 30 Billed Treatment Time 1 visit-EX 1 (20 min) FA 1 (10 min) JUAN CHAVIS Sep 26, 2018 13:35
[2018-09-26] MEDS ORDERED: ATOR80TA76 PO (14:05)
[2018-09-26] MEDS ORDERED: CYAN10006 PO (14:05)
[2018-09-26] MEDS ORDERED: ASPI-983 PO (14:05)
[2018-09-26] MEDS ORDERED: METO100T12 PO (14:05)
[2018-09-26] MEDS ORDERED: LOSA100T57 PO (14:05)
[2018-09-26] MEDS ORDERED: OMG1KC PO (14:05)
[2018-09-26] MEDS ORDERED: METF500T8 PO (14:05)
[2018-09-26] MEDS ORDERED: CHOL10007 PO (14:05)
[2018-09-26] MEDS ORDERED: FOLI0.4T2 PO (14:05)
[2018-09-26] MEDS ORDERED: DEXL60CA PO (14:05)
[2018-09-26] MEDS ORDERED: TRAM50TA2 PO ×2 (14:05)
[2018-09-26] MEDS ORDERED: FENO135C4 PO (14:05)
[2018-09-26] MEDS ORDERED: TRAZ-190 PO (14:05)
[2018-09-26] MEDS ORDERED: ACET-2267 PO (14:05)
[2018-09-26] MEDS ORDERED: ALLO100T PO (14:05)
[2018-09-26] MEDS ORDERED: UBID200C16 PO (14:05)
--- NOTE | 2018-09-26 14:07 | NUR ---
UPDATED MED REC BACK TO THE LIST OF MEDICATIONS ON FILE FOR THE PATIENT PRIOR TO ADMISSION TO IRF. I ADDED THE MEDS THEY WERE REPORTED ON 08-30-18 IN REHABILITATION ENGINEER. NOTE SEVERAL CHANGES WERE MADE WHEN THE PATIENT DISCHARGED FROM [facility] THAT ARE NOT CURRENTLY REFLECTED ON THE HOME MED REC.
[2018-09-26 17:52] VITALS: BP 154/76
[2018-09-26 18:48] VITALS: BP 140/79
--- NOTE | 2018-09-26 19:19 | NUR ---
bedside report received from JERROD CERDA, assume care of pt
--- NOTE | 2018-09-26 20:00 | NUR ---
up in the chair up to bathroom with 1 person standby assist & walker, assessments & interventions completed, see assessments & interventions, scored 0 on NIH STROKE SCALE
[2018-09-26] MEDS: ATORVASTATIN 40 MG (LIPITOR) TABLET PO SCH (21:06)
--- NOTE | 2018-09-26 21:07 | NUR ---
c/o pain to chest incisional area pain level 5/10 on numeric scale, Ultram 50mg po given
--- NOTE | 2018-09-26 21:45 | NUR ---
resting quietly in bed pain level 0/10 on flacc scale
[2018-09-27 05:12] VITALS: BP 150/89
[2018-09-27 05:15] LABS: BUN/CREATININE RATIO 13; CALCIUM 9.5 MG/DL (8.5-10.1); CARBON DIOXIDE 22 MMOL/L (21-32); CHLORIDE 103 MMOL/L (98-107); CREATININE SERUM 1.16 MG/DL (0.60-1.30); GFR ESTIMATED > 60; GLUCOSE 102 MG/DL (70-105); MAGNESIUM 1.9 MG/DL (1.8-2.4); POTASSIUM 4.3 MMOL/L (3.6-5.0); SODIUM 136 MMOL/L (135-145)
--- NOTE | 2018-09-27 05:16 | NUR ---
c/o incisional pain level 5/10 on numeric scale Ultram 50mg po given
--- NOTE | 2018-09-27 06:06 | NUR ---
pain level 2/10 on numeric scale
[2018-09-27] MEDS: MULTIVIT W/MINERALS TAB (THERAGRAN M) PO SCH (06:27)
[2018-09-27] MEDS: LEVOTHYROXINE 25 MCG (LEVOTHROID) TAB PO SCH (06:27)
[2018-09-27] MEDS: KCL 20 MEQ TAB (K-DUR) PO SCH (06:27)
--- NOTE | 2018-09-27 07:18 | NUR ---
bedside report given to GLENIS CERDA
--- NOTE | 2018-09-27 08:30 | PM&R Progress Note ---
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 Pond at [facility]. Apparently he had bleeding in his chest tube shortly after his bypass surgery and hemoglobin decreased to 7 from baseline 14 and patient was managed aggressively and given transfusions and then 2 days later had been doing well but suffered a new onset seizure neurology was consulted and he was placed on Keppra but then had an abrupt episode of right-sided weakness and assumed it was a stroke in CT scanner was down and unavailable so he was transferred to [facility] for CT scan and possibility of a TPA and that test was done and no evidence of any thrombosis so he was admitted there on the neurosurgery unit monitor closely and patient appeared to regain function of the right hand and right foot that was unusual after suffering a stroke so 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 Patient overall is doing well reports the pain is from the bypass graft and sternotomy and is able to get by with Tylenol and Ultram. He does use CPAP machine at night and is able to take 2 Tylenol and Ultram and get a good night' s rest. Bowel function is normal and urination is normal. He had side effects from narcotics and benzodiazepines so will be held. did mention that he has drank a lot of alcohol for the last many years and she thought it was resolved but it appears that he was drinking regularly when she did not realize it and this seizure could very well have been a withdrawal from alcohol seizure so we will keep that in mind but maintained on Keppra. He also had an episode of atrial fibrillation following bypass surgery placed on amiodarone and patient is doing well from that standpoint. Dr. Cr will be consulted. Subjective/Events-last exam DC plan for tomorrow Will remove every other staple today except we will keep the set near the ankle intact because of the drainage of serous type of fluid Labs remain stable Has received 3 Venofer iron infusions and he will complete that since he will be discharged tomorrow Bowels are moving Overall dramatic improvement in the right side Will gather up home medication for discharge planning from Dr. Cr Review of Systems Neurological: Weakness Objective Exam Vital Signs Vital Signs Date Time Temp Pulse Resp B/P (MAP) Pulse Ox O2 Delivery O2 Flow Rate FiO2 09/27/18 17:15 97.4 65 18 128/76 (93) 98 Room Air Capillary Refill : General Appearance: No Apparent Distress, WD/WN, Chronically ill HEENT: PERRL/EOMI, Normal ENT Inspection, Pharynx Normal, Moist Mucous Membranes Neck: Full Range of Motion, Normal Inspection, Non Tender Respiratory: Lungs Clear, Normal Breath Sounds, No Accessory Muscle Use, No Respiratory Distress, Crackles, Decreased Breath Sounds Cardiovascular: Regular Rate, Rhythm, No Edema Gastrointestinal: Normal Bowel Sounds, No Organomegaly, No Pulsatile Mass, Non Tender, Soft Back: Normal Inspection, No CVA Tenderness, No Vertebral Tenderness, Decreased Range of Motion Extremity: Normal Capillary Refill, Normal Inspection, Normal Range of Motion, Non Tender, No Calf Tenderness, Pedal Edema (right > Left) Neurologic/Psychiatric: Alert, Oriented x3, Normal Mood/Affect, aerospace assembler II-XII Norm as Tested, Motor Weakness (right 4/5 upper and lower improved) Skin: Normal Color, Warm/Dry Lymphatic: No Adenopathy Results/Procedures Lab Laboratory Tests 09/27/18 04:30 Patient resulted labs reviewed. Assessment/Plan Assessment and Plan Assess & Plan/Chief Complaint Assessment: Right-sided weakness source of stroke versus Beny's paralysis Recent bypass surgery on 09/13/[address] Pond Acute blood loss in chest tube after bypass surgery Iron deficiency anemia Diabetes mellitus Obstructive sleep apnea Episode of atrial fibrillation with rapid ventricular response maintain on amiodarone Hypertension Chronic renal insufficiency New onset seizure could be alcohol withdrawal seizure maintained on Keppra Side effects with benzodiazepines and narcotics will avoid Thrombocytosis New onset hypothyroidism started on low dose due to cardiac issues recent CABG Edema Plan: Intensive rehab therapies Continue all meds from [facility] Consult cardiology Monitor closely Maintain on low dose thyroid Staple removal from right leg graft sites every other starting 09/27/18 today DC in am (1) CVA (cerebral vascular accident) (2) Beny's paralysis (postepileptic) (3) NATE on CPAP (4) HTN (hypertension) (5) Anemia, posthemorrhagic, acute (6) Seizure (7) Renal insufficiency (8) Hyperlipidemia (9) CAD (coronary artery disease) Onset Date: 09/19/2014 (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
[2018-09-27 09:05] VITALS: BP 132/76
[2018-09-27] MEDS: LEVETIRACETAM 500 MG (KEPPRA) TAB PO SCH ×2 (09:07→21:01)
[2018-09-27] MEDS: ASPIRIN 81 MG CHEW (CHILDREN'S ASA) PO SCH (09:07)
[2018-09-27] MEDS: AMIODARONE 200 MG (CORDARONE) TAB PO SCH (09:07)
[2018-09-27] MEDS: FLUoxetine HCL 20 MG (PROzac) CAP PO SCH (09:07)
[2018-09-27] MEDS: PANTOPRAZOLE 40 MG (PROTONIX) TAB PO SCH (09:07)
[2018-09-27] MEDS: meTOprolol TARTRATE 50 MG (LOPRESSOR) TAB PO SCH ×2 (09:08→17:17)
[2018-09-27] MEDS: FUROSEMIDE 40 MG (LASIX) TAB PO SCH (09:08)
[2018-09-27] MEDS: APIXABAN 5 MG (ELIQUIS) TABLET PO SCH ×2 (09:09→21:02)
[2018-09-27] MEDS: amLODIPine 10 MG (NORVASC) TAB PO SCH (09:09)
[2018-09-27] MEDS: IRON SUCROSE 200 MG/10 ML (VENOFER) VIAL IV SCH (09:10)
--- NOTE | 2018-09-27 09:10 | Physical Therapy Daily Note ---
PT Daily Note-Current Subjective Pt sitting in recliner upon arrival. Pt agrees to PT. Pain Location: No Pain Reported Mental Status Patient Orientation: Person, Place, Time, Situation Transfers Therapy Code Descriptions/Definitions Functional [place] Measure: 0=Not Assessed/NA 4=Minimal Assistance 1=Total Assistance 5=Supervision or Setup 2=Maximal Assistance 6=Modified [place] 3=Moderate Assistance 7=Complete [place] Therapy Quality Codes: 6 Independent with activity with or without an assistive device 5 Patient requires set up or clean up by helper. Patient completes activity by themselves 4 Supervision or touching assist (CGA). [place] provide cues , steadying assist 3 The helper provides less than half the effort to complete the activity 2 The helper provides more than half the effort to complete the activity 1 Dependent. The helper does all the effort to complete an activity 7 Patient refused to complete or attempt activity 9 The patient did not perform the activity before the current illness or injury 88 Not attempted due to Medical conditions or safety concerns Transfers (B, C, W/C) (FIM): 6 Scootin Rollin Roll Left to Right (QC): 6 Supine to/from Sit: 6 Sit to/from Stand: 6 Sit to Lying (QC): 6 Sit to Stand (QC): 6 Chair/Bwd-dq-[place] Xfer(QC): 6 Bed to/from Chair: 6 Car Transfer (QC): 6 Weight Bearing Right Lower Extremity: Right Full Weight Bearing Left Lower Extremity: Left Full Weight Bearing Sternal precautions Gait Training Does the Patient Walk?: Yes Gait (FIM): 6 Distance (FIM): 3=150 ft Distance: 200' Walk 10 feet (QC): 6 Walk 50 ft with 2 Turns(QC): 6 Walk 150 ft (QC): 6 Walking 10ft/uneven surface-QC: 6 Gait Level of Assist: 6 Gait Persons Needed: 1 Gait Assistive Device: FWW Pt demonstrates some weakness on RLE due to medical dx. This does not limit activity participation. Wheelchair Training Does the Pt Use a Wheelchair?: No Stair Training Stair Training: Handrails/: No handrail Stairs (FIM): 3 #of Steps: 4 1 Step (curb) (QC): 6 4 Steps (QC): 6 Stairs: Pattern: Step to Level of Assist: 6 Pt gets SOA with steps. Pt did not use handrails since he has no railing at home. Balance Picking up an Object (QC): 88 Special Test Comments Pt does not black pickler object from floor due to SOA with bending over. Pt will use a resistor testing machine operator at home. Exercises Seated Therapy Exercises: Ankle pumps, Long arc quads, Hip flexion, Kicking activity, Hip abd/add Seated Reps: 15 Treatments Pt completes bed mobility, transfers including car transfer, ambulation including across varying surface & stairs. Pt and Sp listened as ORDNANCE HANDLER gave pt ed. over strengthening Ex for home and use of FWW vs 4WW. Pt resting in recliner at end of tx. with all needs met. Assessment Current Status: Good Progress Pt is able to complete tasks given and has improved with strength and independence of activities. Pt is a little nervous about going home but feels ready. PT Short Term Goals Short Term Goals Time Frame: Sep 29, 2018 Transfers (B,C,W/C) (FIM): 5 Gait (FIM): 4 Distance (FIM): 3=150 ft Gait Assistive Device: FWW Stairs (FIM): 2 # of Steps: 4 PT Detention Goals Detention Goals PT Detention Goals Time Frame: Oct 06, 2018 Transfers (B,C,W/C) (FIM): 7 Sit to Lying (QC): 6 Lying-Sitting on Side/Bed(QC): 6 Sit to Stand (QC): 6 Rollin Roll Left to Right (QC): 6 Chair/Xwk-gt-Fktab Xfer(QC): 6 Car Transfer (QC): 6 Does the Patient Walk: Yes Gait (FIM): 6 Gait distance (FIM): 3=150 ft Distance: 300 ft Walk 10 feet (QC): 6 Walk 10ft-Uneven Surface(QC): 6 Walk 50ft with 2 Turns (QC): 6 Walk 150 ft (QC): 6 Gait Assistive Device: FWW Does the Pt use WC or Scooter?: No Stairs (FIM): 6 # of Steps: 12 1 Step (curb) (QC): 6 4 Steps (QC): 6 12 Steps (QC): 6 Picking up an Object (QC): 4 (use of a resistor testing machine operator) PT Plan Problem List Problem List: Activity Tolerance, Functional Strength Treatment/Plan Treatment Plan: Continue Plan of Care Treatment Plan: Bed Mobility, Education, Functional Activity [place], Functional Strength, Group Therapy, Gait, Safety, Therapeutic Exercise, Transfers Treatment Duration: Oct 06, 2018 Frequency: Modified Program (IRF) Estimated Hrs Per Day: 1.5 hours per day Patient and/or Family Agrees t: Yes Safety Risks/Education Patient Education: Gait Training, Transfer Techniques, Steps, Correct Positioning, Safety Issues Teaching Recipient: Patient, Significant Other Teaching Methods: Discussion Response to Teaching: Verbalize Understanding Time/GCodes Time In: 800 Time Out: 900 Total Billed Treatment Time: 60 Total Billed Treatment 1, GT x2 (30m), FA (15m) & GT (15m) G Codes Necessary: MOSES Mahoney ORDNANCE HANDLER Sep 27, 2018 09:10
--- NOTE | 2018-09-27 10:02 | Occupational Ther Daily Note ---
OT Current Status-Daily Note Subjective Pt alert, sitting in recliner. Pt agrees to therapy. Pt c/o soreness across chest, did not rate, did not request pain meds. Mental Status/Objective Patient Orientation: Person, Place, Time, Situation Therapy Code Descriptions/Definitions Functional [place] Measure: 0=Not Assessed/NA 4=Minimal Assistance 1=Total Assistance 5=Supervision or Setup 2=Maximal Assistance 6=Modified [place] 3=Moderate Assistance 7=Complete [place] Attachments: IV ADL-Treatment Therapy Code Descriptions/Definitions Functional [place] Measure: 0=Not Assessed/NA 4=Minimal Assistance 1=Total Assistance 5=Supervision or Setup 2=Maximal Assistance 6=Modified [place] 3=Moderate Assistance 7=Complete [place] Therapy Quality Codes: 6 Independent with activity with or without an assistive device 5 Patient requires set up or clean up by helper. Patient completes activity by themselves 4 Supervision or touching assist (CGA). [place] provide cues , steadying assist 3 The helper provides less than half the effort to complete the activity 2 The helper provides more than half the effort to complete the activity 1 Dependent. The helper does all the effort to complete an activity 7 Patient refused to complete or attempt activity 9 The patient did not perform the activity before the current illness or injury 88 Not attempted due to Medical conditions or safety concerns Eating (FIM): 7 (Pt has demonstrated ability to complete by self.) Eating (QC): 6 Grooming (FIM): 6 (Standing at sink with FWW, pt able to complete by self.) Oral Hygiene (QC): 6 Bathing (FIM): 4 (Using long handle sponge, shower bench, grabbars and hand held shower pt able to complete 90% of bathing by self. Assist to cleanse buttocks due to limited UE movement for sternal precautions and decreased ROM.) Bathing Location: L Arm, R Arm, L Upper Leg, R Upper Leg, L Lower Leg ( including foot), R Lower Leg (including foot), Chest, Abdomen, Perineal Area Shower/Bathe Self (QC): 3 Upper Body (FIM): 6 (Retrieved clothing with FWW and was able to don/doff by self.) Upper Body Dressing (QC): 6 Lower Body Dressing (FIM): 6 (Retrieved clothing with walker. AE to don/doff clothing.) Lower Body Dressing (QC): 6 On/Off Footwear (QC): 6 (Using wide sock aide pt able to complete.) Toileting (FIM): 4 (Assist to cleanse buttocks due to limited UE movement for sternal precautions and decreased ROM. Pt able to manipulate clothing by self.) Toileting Hygiene (QC): 3 Transfers (B, C, W/C) (FIM): 6 (Using FWW for transfers.) Toilet/Commode Transfer (FIM): 6 (Using FWW, BSC and grabbars.) Toilet Transfer (QC): 6 Shower Transfer(FIM): 6 (Using grabbars, shower bench and FWW.) After therapy, pt sitting in recliner with call light/phone in reach. present in room. All needs met in room. OT Short Term Goals Short Term Goals Time Frame: Sep 29, 2018 Eating(FIM): 5 Grooming(FIM): 5 Bathing(FIM): 4 Upper Body Dressing(FIM): 5 Lower Body Dressing(FIM): 4 Toileting(FIM): 4 Transfers (B,C,W/C) (FIM): 5 Toilet/Commode Transfer(FIM): 5 Shower Transfer(FIM): 5 1=Demonstrate adherence to instructed precautions during ADL tasks. 2=Patient will verbalize/demonstrate understanding of assistive devices/ modifications for ADL. 3=Patient will improve strength/tolerance for activity to enable patient to perform ADL's. OT Shelter Goals Intranet Specialist Goals Time Frame: Oct 06, 2018 Eating (FIM): 6 (met) Eating (QC): 6 (met) Groomin (met) Oral Hygiene (QC): 6 (met) Bathing(FIM): 5 (not met) Shower/Bathe Self (QC): 5 (not met) Upper Body Dressing(FIM): 6 (met) Upper Body Dressing (QC): 6 (met) Lower Body Dressing(FIM): 6 (met) Lower Body Dressing (QC): 6 (met) On/Off Footwear (QC): 6 (met) Toileting(FIM): 6 (not met) Toileting Hygiene (QC): 6 (not met) Transfers (B,C,W/C) (FIM): 6 (met) Toilet/Commode Transfer(FIM): 6 (met) Toilet/Commode Transfer (QC): 6 (met) Shower Transfer(FIM): 5 (met) Additional Goals: 1-Demonstrate ADL Tasks, 2-Verbalize Understanding, 3- ImproveStrength/[place] 1=Demonstrate adherence to instructed precautions during ADL tasks. 2=Patient will verbalize/demonstrate understanding of assistive devices/ modifications for ADL. 3=Patient will improve strength/tolerance for activity to enable patient to perform ADL's. OT Education/Plan Problem List/Assessment Assessment: Impaired Self-Care Skills, Restricted Funct UE ROM Discharge Recommendations Plan/Recommendations: Continue POC Therapy D/C Recommendations: Home w/ Family Support, Occupational Therapy Outpatient Equpiment Recommendations-D/C: Extended Bath Bench, Hip Kit Treatment Plan/Plan of Care Patient would benefit from OT for education, treatment and training to promote independence in ADL's, mobility, safety and/or upper extremity function for ADL' s. Plan of Care: ADL Retraining, Caregiver Training, Functional Mobility, Group Exercise/Act as Ind, UE Funct Exercise/Act Treatment Duration: Oct 06, 2018 Frequency: At least 5 of 7 days/Wk (IRF) Estimated Hrs Per Day: 1.5 hours per day Agreement: Yes Rehab Potential: Good Time/GCodes Start Time: 07:00 Stop Time: 08:00 Total Time Billed (hr/min): 60 Billed Treatment Time 1 visit-ADL 4 (60 min) JUAN CHAVIS Sep 27, 2018 10:02
--- NOTE | 2018-09-27 10:08 | NUR ---
Every other staple removed from top three incisions on right leg per Dr. Barrios's order.
[2018-09-27] MEDS ORDERED: AMLO10TA7 PO (10:29)
[2018-09-27] MEDS ORDERED: APIX5TAB PO (10:29)
[2018-09-27] MEDS ORDERED: ATOR40TA PO (10:29)
[2018-09-27] MEDS ORDERED: AMIO200T4 PO (10:29)
[2018-09-27] MEDS ORDERED: FURO40TA4 PO (10:29)
[2018-09-27] MEDS ORDERED: POTA20TA8 PO (10:29)
[2018-09-27] MEDS ORDERED: METO50TA15 PO (10:29)
[2018-09-27] MEDS ORDERED: ASPI-999 PO (10:29)
--- NOTE | 2018-09-27 11:57 | Occupational Ther Daily Note ---
OT Current Status-Daily Note Subjective Pt alert, sitting in recliner. Pt agrees to therapy. No c/o pain at this time. Mental Status/Objective Patient Orientation: Person, Place, Time, Situation Therapy Code Descriptions/Definitions Functional [place] Measure: 0=Not Assessed/NA 4=Minimal Assistance 1=Total Assistance 5=Supervision or Setup 2=Maximal Assistance 6=Modified [place] 3=Moderate Assistance 7=Complete [place] Attachments: IV ADL-Treatment Therapy Code Descriptions/Definitions Functional [place] Measure: 0=Not Assessed/NA 4=Minimal Assistance 1=Total Assistance 5=Supervision or Setup 2=Maximal Assistance 6=Modified [place] 3=Moderate Assistance 7=Complete [place] Therapy Quality Codes: 6 Independent with activity with or without an assistive device 5 Patient requires set up or clean up by helper. Patient completes activity by themselves 4 Supervision or touching assist (CGA). [place] provide cues , steadying assist 3 The helper provides less than half the effort to complete the activity 2 The helper provides more than half the effort to complete the activity 1 Dependent. The helper does all the effort to complete an activity 7 Patient refused to complete or attempt activity 9 The patient did not perform the activity before the current illness or injury 88 Not attempted due to Medical conditions or safety concerns Other Treatment Pt ambulated with FWW to bathroom to void. Pt able to stand and urinate using grabbar and wall for stabilization. Manipulated clothing by self. Pt then was able to ambulate with FWW to hospital's 1st floor with 3 recovery breaks. No SOA noted only fatigue. After therapy, pt sitting in recliner with call light/ phone in reach. All needs met in room. OT Short Term Goals Short Term Goals Time Frame: Sep 29, 2018 Eating(FIM): 5 Grooming(FIM): 5 Bathing(FIM): 4 Upper Body Dressing(FIM): 5 Lower Body Dressing(FIM): 4 Toileting(FIM): 4 Transfers (B,C,W/C) (FIM): 5 Toilet/Commode Transfer(FIM): 5 Shower Transfer(FIM): 5 1=Demonstrate adherence to instructed precautions during ADL tasks. 2=Patient will verbalize/demonstrate understanding of assistive devices/ modifications for ADL. 3=Patient will improve strength/tolerance for activity to enable patient to perform ADL's. OT Senior Dot Net Developer Goals Group Home Goals Time Frame: Oct 06, 2018 Eating (FIM): 6 (met) Eating (QC): 6 (met) Groomin (met) Oral Hygiene (QC): 6 (met) Bathing(FIM): 5 (not met) Shower/Bathe Self (QC): 5 (not met) Upper Body Dressing(FIM): 6 (met) Upper Body Dressing (QC): 6 (met) Lower Body Dressing(FIM): 6 (met) Lower Body Dressing (QC): 6 (met) On/Off Footwear (QC): 6 (met) Toileting(FIM): 6 (not met) Toileting Hygiene (QC): 6 (not met) Transfers (B,C,W/C) (FIM): 6 (met) Toilet/Commode Transfer(FIM): 6 (met) Toilet/Commode Transfer (QC): 6 (met) Shower Transfer(FIM): 5 (met) Additional Goals: 1-Demonstrate ADL Tasks, 2-Verbalize Understanding, 3- ImproveStrength/[place] 1=Demonstrate adherence to instructed precautions during ADL tasks. 2=Patient will verbalize/demonstrate understanding of assistive devices/ modifications for ADL. 3=Patient will improve strength/tolerance for activity to enable patient to perform ADL's. OT Education/Plan Discharge Recommendations Plan/Recommendations: Continue POC Treatment Plan/Plan of Care Patient would benefit from OT for education, treatment and training to promote independence in ADL's, mobility, safety and/or upper extremity function for ADL' s. Plan of Care: ADL Retraining, Caregiver Training, Functional Mobility, Group Exercise/Act as Ind, UE Funct Exercise/Act Treatment Duration: Oct 06, 2018 Frequency: At least 5 of 7 days/Wk (IRF) Estimated Hrs Per Day: 1.5 hours per day Agreement: Yes Rehab Potential: Good Time/GCodes Start Time: 11:25 Stop Time: 11:55 Total Time Billed (hr/min): 30 Billed Treatment Time 1 visit-ADL 1 (10 min) FA 1 (20 min) JUAN CHAVIS Sep 27, 2018 11:57
[2018-09-27] MEDS ORDERED: LEVE500T6 PO (13:32)
[2018-09-27] MEDS ORDERED: LEVO25TA5 PO (13:32)
--- NOTE | 2018-09-27 15:08 | Physical Therapy Daily Note ---
PT Daily Note-Current Subjective Pt sitting in recliner upon arrival. Pt agrees to PT. Pain Location: No Pain Reported Mental Status Patient Orientation: Person, Place, Time, Situation Transfers Therapy Code Descriptions/Definitions Functional [place] Measure: 0=Not Assessed/NA 4=Minimal Assistance 1=Total Assistance 5=Supervision or Setup 2=Maximal Assistance 6=Modified [place] 3=Moderate Assistance 7=Complete [place] Therapy Quality Codes: 6 Independent with activity with or without an assistive device 5 Patient requires set up or clean up by helper. Patient completes activity by themselves 4 Supervision or touching assist (CGA). [place] provide cues , steadying assist 3 The helper provides less than half the effort to complete the activity 2 The helper provides more than half the effort to complete the activity 1 Dependent. The helper does all the effort to complete an activity 7 Patient refused to complete or attempt activity 9 The patient did not perform the activity before the current illness or injury 88 Not attempted due to Medical conditions or safety concerns Scootin Sit to/from Stand: 6 Sit to Stand (QC): 6 Weight Bearing Right Lower Extremity: Right Full Weight Bearing Left Lower Extremity: Left Full Weight Bearing Sternal precautions Gait Training Does the Patient Walk?: Yes Distance (FIM): 3=150 ft Distance: 150' Walk 10 feet (QC): 6 Walk 50 ft with 2 Turns(QC): 6 Walk 150 ft (QC): 6 Gait Level of Assist: 6 Gait Persons Needed: 1 Gait Assistive Device: Walker 4 Wheeled Sp brings in 4WW for pt to try out. Pt does not like at first but after walking reports it is feeling more comfortable and will use it at home. Wheelchair Training Does the Pt Use a Wheelchair?: No Treatments LINER ROLL CHANGER resizes 4WW to pt. Pt transfers from recliner and ambulates in hallway before returning to room to rest. Pt resting in recliner with all needs met. Assessment Current Status: Good Progress Pt still feels a little anxious about going home but feels ready. PT Short Term Goals Short Term Goals Time Frame: Sep 29, 2018 Transfers (B,C,W/C) (FIM): 5 Gait (FIM): 4 Distance (FIM): 3=150 ft Gait Assistive Device: FWW Stairs (FIM): 2 # of Steps: 4 PT Turning Machine Operator Helper Goals Turning Machine Operator Helper Goals PT Turning Machine Operator Helper Goals Time Frame: Oct 06, 2018 Transfers (B,C,W/C) (FIM): 7 Sit to Lying (QC): 6 Lying-Sitting on Side/Bed(QC): 6 Sit to Stand (QC): 6 Rollin Roll Left to Right (QC): 6 Chair/Nus-rb-Neuqn Xfer(QC): 6 Car Transfer (QC): 6 Does the Patient Walk: Yes Gait (FIM): 6 Gait distance (FIM): 3=150 ft Distance: 300 ft Walk 10 feet (QC): 6 Walk 10ft-Uneven Surface(QC): 6 Walk 50ft with 2 Turns (QC): 6 Walk 150 ft (QC): 6 Gait Assistive Device: FWW Does the Pt use WC or Scooter?: No Stairs (FIM): 6 # of Steps: 12 1 Step (curb) (QC): 6 4 Steps (QC): 6 12 Steps (QC): 6 Picking up an Object (QC): 4 (use of a mobile engineer) PT Plan Problem List Problem List: Activity Tolerance, Functional Strength Treatment/Plan Treatment Plan: Continue Plan of Care Treatment Plan: Bed Mobility, Education, Functional Activity [place], Functional Strength, Group Therapy, Gait, Safety, Therapeutic Exercise, Transfers Treatment Duration: Oct 06, 2018 Frequency: Modified Program (IRF) Estimated Hrs Per Day: 1.5 hours per day Patient and/or Family Agrees t: Yes Safety Risks/Education Patient Education: Gait Training, Transfer Techniques, Correct Positioning, Safety Issues Teaching Recipient: Patient, Significant Other Teaching Methods: Discussion Response to Teaching: Verbalize Understanding Time/GCodes Time In: 1300 Time Out: 1330 Total Billed Treatment Time: 30 Total Billed Treatment 1, FA x2 (30m) G Codes Necessary: MOSES Mahoney PTA Sep 27, 2018 15:08
[2018-09-27] MEDS: RT-ALBUTEROL SULF 2.5 MG/3 ML PRE-MIX VIAL INH SCH ×2 (16:50→20:31)
[2018-09-27 17:15] VITALS: BP 128/76
[2018-09-27] MEDS: ACETAMINOPHEN 500 MG TAB (TYLENOL) PO PRN ×2 (17:17→21:02)
--- NOTE | 2018-09-27 17:45 | NUR ---
Dr. Cr in to see patient. Orders to F/U in his office in 3 weeks.
[2018-09-27] MEDS: ATORVASTATIN 40 MG (LIPITOR) TABLET PO SCH (21:02)
[2018-09-28 06:11] VITALS: BP 129/76
[2018-09-28] MEDS: MULTIVIT W/MINERALS TAB (THERAGRAN M) PO SCH (06:53)
[2018-09-28] MEDS: LEVOTHYROXINE 25 MCG (LEVOTHROID) TAB PO SCH (06:53)
[2018-09-28] MEDS: KCL 20 MEQ TAB (K-DUR) PO SCH (06:53)
[2018-09-28] MEDS: ACETAMINOPHEN 500 MG TAB (TYLENOL) PO PRN (06:57)
[2018-09-28] MEDS: APIXABAN 5 MG (ELIQUIS) TABLET PO SCH (08:34)
[2018-09-28] MEDS: FUROSEMIDE 40 MG (LASIX) TAB PO SCH (08:34)
[2018-09-28] MEDS: LEVETIRACETAM 500 MG (KEPPRA) TAB PO SCH (08:34)
[2018-09-28] MEDS: amLODIPine 10 MG (NORVASC) TAB PO SCH (08:34)
[2018-09-28] MEDS: FLUoxetine HCL 20 MG (PROzac) CAP PO SCH (08:34)
[2018-09-28] MEDS: AMIODARONE 200 MG (CORDARONE) TAB PO SCH (08:35)
[2018-09-28] MEDS: PANTOPRAZOLE 40 MG (PROTONIX) TAB PO SCH (08:35)
[2018-09-28] MEDS: ASPIRIN 81 MG CHEW (CHILDREN'S ASA) PO SCH (08:35)
[2018-09-28] MEDS: meTOprolol TARTRATE 50 MG (LOPRESSOR) TAB PO SCH (08:35)
--- NOTE | 2018-09-28 08:44 | Therapy Team Discharge Summary ---
Therapy Discharge Summary Discharge Recommendations Date of Discharge Therapy D/C Recommendations: Home w/ Family Support, Occupational Therapy Outpatient Physical Therapy Patient came to rehab following a CABGx4. Upon evaluation patient performed bed mobility with mod assist, supine to sit with min assist, sit to stand with min assist, transfers with min/CGA, car transfer with min/CGA. Patient has been performing bed mobility and transfer training, balance and endurance training, functional strengthening, stair training, gait training, and education. Patient has been compliant with his weight bearing status. Patient has made fair progress but has not met distance for ambulation fpc goal or goal for stairs. Now, patient performs bed mobility and transfers with mod I , car transfer with mod I, ambulates 200' with a rolling walker with mod I ( including 50' with at least 2 turns of 90 degrees and 10' over an uneven surface ), and can go up and down 4 steps using 2 handrails with mod I. Patient is discharging from this facility today and will be discharged from PT at this time. Occupational Therapy Impaired Self-Care Skills, Restricted Funct UE ROM PT Overnight Associate Goals Overnight Associate Goals PT Overnight Associate Goals Time Frame: Oct 06, 2018 Transfers (B,C,W/C) (FIM): 7 Roll Left to Right (QC): 6 Sit to Lying (QC): 6 Lying-Sitting on Side/Bed(QC): 6 Sit to Stand (QC): 6 Chair/[place] Xfer(QC): 6 Car Transfer (QC): 6 Does the Patient Walk: Yes Gait (FIM): 6 Gait distance (FIM): 3=150 ft Distance: 300 ft Walk 10 feet (QC): 6 Walk 10ft-Uneven Surface(QC): 6 Walk 50ft with 2 Turns (QC): 6 Walk 150 ft (QC): 6 Gait Assistive Device: FWW Does the Pt use WC or Scooter?: No Stairs (FIM): 6 # of Steps: 12 1 Step (curb) (QC): 6 4 Steps (QC): 6 12 Steps (QC): 6 Picking up an Object (QC): 4 (use of a personnel director) OT Overnight Associate Goals Overnight Associate Goals Time Frame: Oct 06, 2018 Eating (FIM): 6 (met) Eating (QC): 6 (met) Oral Hygiene (QC): 6 (met) Grooming(FIM): 6 (met) Bathing(FIM): 5 (not met) Shower/Bathe Self (QC): 5 (not met) Upper Body Dressing(FIM): 6 (met) Upper Body Dressing (QC): 6 (met) Lower Body Dressing(FIM): 6 (met) Lower Body Dressing (QC): 6 (met) On/Off Footwear (QC): 6 (met) Toileting(FIM): 6 (not met) Toileting Hygiene (QC): 6 (not met) Transfers (B,C,W/C) (FIM): 6 (met) Toilet/Commode Transfer(FIM): 6 (met) Toilet/Commode Transfer (QC): 6 (met) Shower Transfer(FIM): 5 (met) Additional Goals: 1-Demonstrate ADL Tasks, 2-Verbalize Understanding, 3- ImproveStrength/Donovan 1=Demonstrate adherence to instructed precautions during ADL tasks. 2=Patient will verbalize/demonstrate understanding of assistive devices/ modifications for ADL. 3=Patient will improve strength/tolerance for activity to enable patient to perform ADL's. JEROD ORDOÑEZ PT Sep 28, 2018 08:44
[2018-09-28] MEDS: RT-ALBUTEROL SULF 2.5 MG/3 ML PRE-MIX VIAL INH SCH (08:56)
--- NOTE | 2018-09-28 09:19 | Discharge Summary-Hospitalist ---
Diagnosis/Chief Complaint Date of Admission Sep 22, 2018 at 14:10 Date of Discharge Discharge Date: Sep 28, 2018 Discharge Time: 1000 Admission Diagnosis Assessment: Assessment: Right-sided weakness source of stroke versus Beny's paralysis Recent bypass surgery on 09/13/[address] Pond Acute blood loss in chest tube after bypass surgery Iron deficiency anemia Diabetes mellitus Obstructive sleep apnea Episode of atrial fibrillation with rapid ventricular response maintain on amiodarone Hypertension Chronic renal insufficiency New onset seizure could be alcohol withdrawal seizure maintained on Keppra Side effects with benzodiazepines and narcotics will avoid Thrombocytosis Plan: Intensive rehab therapies Continue all meds from [facility] Consult cardiology Monitor closely Discharge Diagnosis (1) CVA (cerebral vascular accident) Status: Acute (2) Beny's paralysis (postepileptic) Status: Acute (3) NATE on CPAP Status: Chronic (4) HTN (hypertension) Status: Chronic (5) Anemia, posthemorrhagic, acute Status: Acute (6) Seizure Status: Acute (7) Renal insufficiency Status: Chronic (8) Hyperlipidemia Status: Chronic (9) CAD (coronary artery disease) Onset Date: 09/19/2014 Status: Acute (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 (11) Diabetes mellitus Status: Chronic (12) Iron deficiency Status: Acute (13) HTN (hypertension) (14) Edema (15) Hypothyroidism Discharge Summary Discharge Physical Exam Allergies: Coded Allergies: No Known Drug Allergies (Verified , 05/19/08) Uncoded Allergies: [id number] (HAYFEVER) (Allergy, Mild, 12/21/08) Vitals & I&Os Vital Signs Date Time Temp Pulse Resp B/P (MAP) Pulse Ox O2 Delivery O2 Flow Rate FiO2 09/28/18 13:57 71 20 144/73 99 Room Air 09/28/18 06:11 97.0 General Appearance: No Apparent Distress, WD/WN HEENT: PERRL/EOMI, Normal ENT Inspection, Pharynx Normal Respiratory: Chest Non Tender, Lungs Clear, Normal Breath Sounds, No Accessory Muscle Use, No Respiratory Distress Cardiovascular: Regular Rate, Rhythm, No Edema, No Gallop, No JVD, No Murmur, Normal Peripheral Pulses Gastrointestinal: Normal Bowel Sounds, No Organomegaly, No Pulsatile Mass, Non Tender, Soft Extremity: Normal Capillary Refill, Normal Inspection, Normal Range of Motion, Non Tender, No Calf Tenderness, No Pedal Edema Skin: Normal Color, Warm/Dry Neurologic/Psychiatric: Alert, Oriented x3, Normal Mood/Affect, Motor Weakness (subtle right sided weakness) Hospital Course Was the Problem List Reviewed?: Yes Hospital course: Pt has an uneventful inpatient rehab hospital course after he was admitted for right sided weakness due to Beny's paralysis versus stroke following a bypass surgery. Pt participated in all therapies he was maintained on CPAP at night and bowel function remained normal during hospital course. Bladder function remained normal during hospital course. Overall he was walking with a walker and the right side weakness was near 90% baseline during time of discharge and overall had a dramatic improvement in inpatient rehab stay. Labs (last 24 hrs) Patient resulted labs reviewed. Discussion & Recommendations Discharge Planning: <30 minutes discharge planning Discharge Home Medications: Active Scripts Active Levothyroxine Sodium 25 Mcg Tablet 25 Mcg PO DAILY@0630 Levetiracetam 500 Mg Tablet 500 Mg PO BID Furosemide 40 Mg Tablet 40 Mg PO DAILY Klor-Con M20 (Potassium Chloride) 20 Meq Tab.er.prt 20 Meq PO DAILY@0700 Aspirin 81 Mg Tab.chew 81 Mg PO DAILY Lipitor (Atorvastatin Calcium) 40 Mg Tablet 40 Mg PO HS Amlodipine Besylate 10 Mg Tablet 10 Mg PO DAILY Metoprolol Tartrate 50 Mg Tablet 75 Mg PO BIDPC Amiodarone HCl 200 Mg Tablet 200 Mg PO DAILY Eliquis (Apixaban) 5 Mg Tablet 5 Mg PO BID Reported Folic Acid 0.4 Mg Tablet 0.4 Mg PO HS Vitamin B-12 (Cyanocobalamin (Vitamin B-12)) 1,000 Mcg Tablet 1,000 Mcg PO DAILY Vitamin D3 (Cholecalciferol (Vitamin D3)) 1,000 Unit Capsule 1,000 Unit PO DAILY Tylenol Extra Strength (Acetaminophen) 500 Mg Tablet 1,000 Mg PO BID Metformin HCl ER (Metformin HCl) 500 Mg Tab.er.24h 500 Mg PO BID Tramadol HCl 50 Mg Tablet 100 Mg PO HS Tramadol HCl 50 Mg Tablet 50 Mg PO DAILY Co Q-10 (Ubidecarenone) 200 Mg Capsule 200 Mg PO DAILY Allopurinol 100 Mg Tablet 100 Mg PO BID Dexilant (Dexlansoprazole) 60 Mg Cap.bp 60 Mg PO BID Abilify (Aripiprazole) 2 Mg Tablet 2 Mg PO DAILY Fluoxetine HCl 40 Mg Capsule 40 Mg PO HS Instructions to patient/family Please see electronic discharge instructions given to patient. Clinical Quality Measures DVT/VTE Risk/Contraindication: Risk Factor Score Per Nursin RFS Level Per Nursing on Admit: 4+=Very High Problem Qualifiers (1) CVA (cerebral vascular accident): CVA mechanism: unspecified Qualified Codes: I63.9 - Cerebral infarction, unspecified (2) HTN (hypertension): Hypertension type: essential hypertension Qualified Codes: I10 - Essential ( primary) hypertension (3) Hyperlipidemia: Hyperlipidemia type: mixed hyperlipidemia Qualified Codes: E78.2 - Mixed hyperlipidemia (4) CAD (coronary artery disease): Coronary Disease-Associated Artery/Lesion type: bypass graft Tribe vs. transplanted heart: [place] heart Associated angina: without angina Qualified Codes: I25.810 - Atherosclerosis of coronary artery bypass graft(s) without angina pectoris (5) Diabetes mellitus: Diabetes mellitus type: type 2 Diabetes mellitus correction insulin use: with termite control technician use Diabetes mellitus complication status: with circulatory complication Diabetes mellitus complication detail: with other circulatory complications Qualified Codes: E11.59 - Type 2 diabetes mellitus with other circulatory complications; Z79.4 - terminal computer operator (current) use of insulin HUYEN FAUSTIN DO Sep 28, 2018 09:19
--- NOTE | 2018-09-28 10:20 | NUR ---
LEAD JANITOR met with patient and spouse to review last minute discharge concerns. Neither breast concerns and her eager to return home. Spouse and family will be present 247 upon patient returning home. LEAD JANITOR reviewed recommendation outpatient therapy; however, patient intends to complete cardiac rehabilitation when appropriate. Patient has all necessary DME at home for safe mobility. LEAD JANITOR reviewed IMM, patient expresses no concerns regarding discharge plans. They see discharge records for further information
[2018-09-28 13:57] VITALS: BP 144/73
--- NOTE | 2018-09-29 09:54 | Therapy Team Discharge Summary ---
Therapy Discharge Summary Discharge Recommendations Date of Discharge Sep 28, 2018 at 12:45 Therapy D/C Recommendations: Home w/ Family Support, Occupational Therapy Outpatient Occupational Therapy Pt. seen by occupational therapy to increase overall strength and independence with daily skills. Pt. has met most goals, but does still require assistance for washing rear amita area and toileting. This is due to sternal precautions and inability to reach. Pt. has made progress however overall in all areas. Pt. is discharging home with family support. Pt. has been issued toilet tongs. Has been educated in AE. Impaired Self-Care Skills, Restricted Funct UE ROM PT Dairy Nutritionist Goals Dairy Nutritionist Goals PT Dairy Nutritionist Goals Time Frame: Oct 06, 2018 Transfers (B,C,W/C) (FIM): 7 Roll Left to Right (QC): 6 Sit to Lying (QC): 6 Lying-Sitting on Side/Bed(QC): 6 Sit to Stand (QC): 6 Chair/Zxy-ug-Svbqj Xfer(QC): 6 Car Transfer (QC): 6 Does the Patient Walk: Yes Gait (FIM): 6 Gait distance (FIM): 3=150 ft Distance: 300 ft Walk 10 feet (QC): 6 Walk 10ft-Uneven Surface(QC): 6 Walk 50ft with 2 Turns (QC): 6 Walk 150 ft (QC): 6 Gait Assistive Device: FWW Does the Pt use WC or Scooter?: No Stairs (FIM): 6 # of Steps: 12 1 Step (curb) (QC): 6 4 Steps (QC): 6 12 Steps (QC): 6 Picking up an Object (QC): 4 (use of a [place] man) OT Dairy Nutritionist Goals Dairy Nutritionist Goals Time Frame: Oct 06, 2018 Eating (FIM): 6 (met) Eating (QC): 6 (met) Oral Hygiene (QC): 6 (met) Grooming(FIM): 6 (met) Bathing(FIM): 5 (not met) Shower/Bathe Self (QC): 5 (not met) Upper Body Dressing(FIM): 6 (met) Upper Body Dressing (QC): 6 (met) Lower Body Dressing(FIM): 6 (met) Lower Body Dressing (QC): 6 (met) On/Off Footwear (QC): 6 (met) Toileting(FIM): 6 (not met) Toileting Hygiene (QC): 6 (not met) Transfers (B,C,W/C) (FIM): 6 (met) Toilet/Commode Transfer(FIM): 6 (met) Toilet/Commode Transfer (QC): 6 (met) Shower Transfer(FIM): 5 (met) Additional Goals: 1-Demonstrate ADL Tasks, 2-Verbalize Understanding, 3- ImproveStrength/Donovan 1=Demonstrate adherence to instructed precautions during ADL tasks. 2=Patient will verbalize/demonstrate understanding of assistive devices/ modifications for ADL. 3=Patient will improve strength/tolerance for activity to enable patient to perform ADL's. GAURANG RITCHIE OT Sep 29, 2018 09:54
== END 2018-09-28 12:45 | disposition home or self-care (01) | DRG 57 ==
PROVIDERS: ADMIT Internal Medicine; ATTEND Internal Medicine
DX: I69.351 Hemiplegia and hemiparesis following cerebral infarction affecting right dominant side (principal); G83.84 Todd's paralysis (postepileptic); I25.10 Atherosclerotic heart disease of native coronary artery without angina pectoris; D62 Acute posthemorrhagic anemia; I12.9 Hypertensive chronic kidney disease with stage 1 through stage 4 chronic kidney disease, or unspecified chronic kidney disease; N18.3 Chronic kidney disease, stage 3 (moderate); E11.21 Type 2 diabetes mellitus with diabetic nephropathy; I48.91 Unspecified atrial fibrillation; G47.33 Obstructive sleep apnea (adult) (pediatric); N40.0 Benign prostatic hyperplasia without lower urinary tract symptoms; E78.2 Mixed hyperlipidemia; K21.9 Gastro-esophageal reflux disease without esophagitis; K22.70 Barrett's esophagus without dysplasia; K44.9 Diaphragmatic hernia without obstruction or gangrene; F32.9 Major depressive disorder, single episode, unspecified; F10.20 Alcohol dependence, uncomplicated; R56.9 Unspecified convulsions; R60.0 Localized edema; M47.9 Spondylosis, unspecified; E03.9 Hypothyroidism, unspecified; D47.3 Essential (hemorrhagic) thrombocythemia; Z87.891 Personal history of nicotine dependence; Z95.1 Presence of aortocoronary bypass graft
CPT/HCPCS: 36415; 80048; 80053; 83036; 83540; 83735; 84443; 85025; 85027; 94640; 94760

== ENCOUNTER → 2018-10-26 | Outpatient (CLI) | payer OTHER, MEDICARE ==
[~2018-10-26] MED LIST changes: +ALBU2.5V4 NEB; +AMIO200T4 PO; +AMLO10TA7 PO; +AMMO385C5 TP; +APIX5TAB PO; +ASPI-983 PO; +ASPI-999 PO; +ATOR40TA PO; +ATOR40TA70 PO; +CHOL10007 PO; +CYAN10006 PO; +HONE15GE TP; +LEVE500T6 PO; +LEVE500T99 PO; +LEVO25TA5 PO; +MULT1TAB65 PO; +PANT40TA2 PO; +POLY17PO6 PO; +POTA10CA43 PO; +POTA20TA8 PO; +UBID200C16 PO
[2018-10-26 09:30] LABS: MAGNESIUM 1.6 MG/DL (1.8-2.4)
== END ==
LOC: LAB 08:43
PROVIDERS: ATTEND Internal Medicine Cardiovascular Disease
DX: I25.10 Atherosclerotic heart disease of native coronary artery without angina pectoris (principal); I11.0 Hypertensive heart disease with heart failure; I50.32 Chronic diastolic (congestive) heart failure; R06.09 Other forms of dyspnea; I48.0 Paroxysmal atrial fibrillation; G47.33 Obstructive sleep apnea (adult) (pediatric); E78.5 Hyperlipidemia, unspecified
CPT/HCPCS: 36415; 80061; 83735; 85652

== ENCOUNTER → 2018-10-26 | Outpatient (CLI) | payer OTHER, MEDICARE ==
[2018-10-26 15:47] LABS: HEMOGLOBIN 11.7 G/DL (13.3-17.7); MEAN PLATELET VOLUME 9.7 FL (7.4-10.4); RED CELL DISTRIBUTION WIDTH 14.9 % (10.0-14.5); WHITE BLOOD COUNT 6.6 10^3/uL (4.3-11.0)
[2018-10-26 16:01] LABS: ALBUMIN 3.8 GM/DL (3.2-4.5); BILIRUBIN,TOTAL 0.4 MG/DL (0.1-1.0); CALCIUM 9.8 MG/DL (8.5-10.1); CREATININE SERUM 1.31 MG/DL (0.60-1.30); POTASSIUM 4.8 MMOL/L (3.6-5.0); TOTAL PROTEIN 6.3 GM/DL (6.4-8.2)
[2018-10-26 16:23] LABS: FREE T4 (FREE THYROXINE) 1.1 NG/DL (0.70-1.48)
== END ==
LOC: LAB 08:38
PROVIDERS: ATTEND Family Medicine
DX: I10 Essential (primary) hypertension (principal); E11.9 Type 2 diabetes mellitus without complications; E03.2 Hypothyroidism due to medicaments and other exogenous substances
CPT/HCPCS: 36415; 80053; 83036; 84439; 84443; 85027

== ENCOUNTER → 2018-11-14 | Outpatient (CLI) | payer OTHER, MEDICARE ==
[2018-11-14 08:47] LABS: CALCIUM 9.6 MG/DL (8.5-10.1); CREATININE SERUM 1.23 MG/DL (0.60-1.30); MAGNESIUM 2.1 MG/DL (1.8-2.4); POTASSIUM 4.4 MMOL/L (3.6-5.0)
== END ==
LOC: LAB 08:19
PROVIDERS: ATTEND Internal Medicine Cardiovascular Disease
DX: E83.42 Hypomagnesemia (principal); I10 Essential (primary) hypertension; E78.5 Hyperlipidemia, unspecified; I25.10 Atherosclerotic heart disease of native coronary artery without angina pectoris
CPT/HCPCS: 36415; 80048; 83735

== ENCOUNTER → 2018-11-29 | Day surgery (SDC) | payer OTHER, MEDICARE ==
[~2018-11-29] VITALS: Ht 182.9 cm; Wt 110.7 kg
[~2018-11-29] MED LIST changes: +LIDOCAINE 1% INJ 20 ML 20 ML VIAL ONE
[2018-11-29 07:19] VITALS: BP 166/90
--- NOTE | 2018-11-29 09:03 | Cardiac Procedure Note-CS/ASA ---
Pre-Procedure Note Pre-Op Procedure Note H&P Reviewed The H&P was reviewed, patient examined and no changes noted. Date H&P Reviewed: November 29, 2018 Time H&P Reviewed: 08:35 Conscious Sedation Pre-Proced Time 08:35 ASA Score 3 For ASA 3 and 4: Consider anesthesia and medical clearance. Also, for patients with a history of failed moderate sedation consider anesthesia. Airway Lungs Heart ASA score ASA 1: a normal healthy patient ASA 2: a patient with a mild systemic disease (mid diabetes, controlled hypertension, obesity ASA 3: a patient with a severe systemic disease that limits activity (angina , COPD, prior Myocardial infarction) ASA 4: a patient with an incapacitating disease that is a constant threat to life (CHF, renal failure) ASA 5: a moribund patient not expected to survive 24 hrs. (ruptured aneurysm) ASA 6: a declared brain- patient whose organs are being harvested. For emergent operations, add the letter E after the classification Mallampati Classification Grade 2 Sedation Plan Analgesia, Amnesia, Plan communicated to team members, Discussed options with patient/fam, Discussed risks with patient/fam The patient is an appropriate candidate to undergo the planned procedure, sedation, and anesthesia. The patient immediately re-assessed prior to indication. YISSEL SHOEMAKER MD FACP FAC CCDS November 29, 2018 09:03
--- NOTE | 2018-11-29 13:23 | OPERATIVE REPORT ---
DATE OF SERVICE: 11/29/2018 PREOPERATIVE DIAGNOSIS: History of atrial fibrillation. POSTOPERATIVE DIAGNOSIS: History of atrial fibrillation. The patient is a 63-year-old man who had atrial fibrillation following coronary artery bypass surgery and has since had no apparent recurrence and has wanted off his antiarrhythmics and oral anticoagulants. Implantable loop recorder was implanted today after having obtained an informed consent. This is to monitor for any occult atrial fibrillation. Informed consent was obtained. [facility] The left prepectoral area was prepared and draped in the usual sterile fashion. Lidocaine 1% was used for local anesthesia. The tools provided with the MaPS Reveal LINQ device were used to make a small incision just to the left of the sternum anterior to the third intercostal space and the device was advanced into the subcutaneous pocket and the pocket was closed with Dermabond and Steri-Strips. He tolerated the procedure well. The serial number of the device is [id number]. Job ID: [id number] DocumentID: [id number] Dictated Date: 11/29/2018 08:49:19 Flange Turner Date: 11/29/2018 13:22:32 Dictated By: YISSEL SHOEMAKER MD, MA, FACP, FACC,
== END | disposition home or self-care (01) ==
LOC: CATH 06:55
PROVIDERS: ATTEND Internal Medicine Cardiovascular Disease
DX: I48.0 Paroxysmal atrial fibrillation (principal); I11.0 Hypertensive heart disease with heart failure; I50.33 Acute on chronic diastolic (congestive) heart failure; I25.10 Atherosclerotic heart disease of native coronary artery without angina pectoris; E78.5 Hyperlipidemia, unspecified; Q21.1 Atrial septal defect; E87.6 Hypokalemia; K44.9 Diaphragmatic hernia without obstruction or gangrene; F32.9 Major depressive disorder, single episode, unspecified; G47.33 Obstructive sleep apnea (adult) (pediatric); R56.9 Unspecified convulsions; E03.9 Hypothyroidism, unspecified; D64.9 Anemia, unspecified; K22.70 Barrett's esophagus without dysplasia; E66.9 Obesity, unspecified; Z68.33 Body mass index [BMI] 33.0-33.9, adult; Z79.01 Long term (current) use of anticoagulants; Z79.82 Long term (current) use of aspirin; Z79.899 Other long term (current) drug therapy; Z95.1 Presence of aortocoronary bypass graft; Z87.891 Personal history of nicotine dependence
CPT/HCPCS: 33285

== ENCOUNTER 2019-01-13 07:57 | Outpatient (RCR) | payer OTHER, MEDICARE ==
[~2019-01-13 07:57] MED LIST changes: -LIDOCAINE 1% INJ 20 ML 20 ML VIAL ONE; -TRAZ-189 PO; +TRAZ-222 PO
== END 2019-01-15 | disposition home or self-care (01) ==
LOC: CR 07:57
PROVIDERS: ATTEND Internal Medicine Cardiovascular Disease
DX: Z48.812 Encounter for surgical aftercare following surgery on the circulatory system (principal); Z95.1 Presence of aortocoronary bypass graft
CPT/HCPCS: 93798

== ENCOUNTER 2019-01-23 08:03 | Outpatient (RCR) | payer OTHER, MEDICARE ==
[~2019-01-23 08:03] MED LIST changes: +CYAN-41 PO; -CYAN10006 PO
[2019-02-22] MEDS ORDERED: ONDA4TAB11 PO (20:44)
[2019-02-22] MEDS ORDERED: CIPR500T4 PO (20:44)
[2019-02-22] MEDS ORDERED: ACHD5005 PO (20:44)
[2019-03-22] MEDS ORDERED: CHOL100045 PO (13:46)
[2019-03-22] MEDS ORDERED: FLUO40CA PO (13:46)
[2019-03-22] MEDS ORDERED: ARIP2TAB3 PO (13:46)
[2019-03-22] MEDS ORDERED: ATOR40TA70 PO (13:46)
[2019-03-22] MEDS ORDERED: ALLO100T PO (13:46)
[2019-03-22] MEDS ORDERED: POTA20TA15 PO (13:46)
[2019-03-22] MEDS ORDERED: SENN-145 PO (13:46)
[2019-03-22] MEDS ORDERED: METO100T12 PO (13:46)
[2019-03-22] MEDS ORDERED: ASPI-586 PO (13:46)
[2019-03-22] MEDS ORDERED: FURO40TA4 PO (13:46)
[2019-03-22] MEDS ORDERED: ACET-2267 PO (13:53)
[2019-03-22] MEDS ORDERED: CYAN100088 PO (13:54)
[2019-03-22] MEDS ORDERED: CIPR-225 PO (13:54)
[2019-03-22] MEDS ORDERED: AMLO5TAB4 PO (13:54)
[2019-03-22] MEDS ORDERED: METR500T PO (13:54)
[2019-03-22] MEDS ORDERED: DEXL60CA PO (13:54)
[2019-03-22] MEDS ORDERED: UBID200C36 PO (13:54)
[2019-03-22] MEDS ORDERED: FOLI0.4T2 PO (13:54)
[2019-03-22] MEDS ORDERED: TRAM-42 PO (13:54)
[2019-03-22] MEDS ORDERED: TRAM50TA2 PO (13:54)
[2019-03-23] MEDS ORDERED: HYDR-34 PO (10:10)
== END 2019-04-16 | disposition home or self-care (01) ==
LOC: CR 08:03
PROVIDERS: ATTEND Internal Medicine Cardiovascular Disease
DX: Z48.812 Encounter for surgical aftercare following surgery on the circulatory system (principal); Z95.1 Presence of aortocoronary bypass graft
CPT/HCPCS: 93798

== ENCOUNTER → 2019-02-14 | Outpatient (CLI) | payer OTHER, MEDICARE ==
[~2019-02-14] MED LIST changes: -CYAN-41 PO; +CYAN10006 PO
== END ==
LOC: LAB 06:38
PROVIDERS: ATTEND Family Medicine
DX: E03.2 Hypothyroidism due to medicaments and other exogenous substances (principal)
CPT/HCPCS: 36415; 84443

== ENCOUNTER 2019-02-22 18:36 | Emergency (ER) | payer OTHER, MEDICARE ==
[~2019-02-22] VITALS: Ht 182.9 cm; Wt 114.3 kg
[~2019-02-22 18:36] MED LIST changes: +CYAN-41 PO; -CYAN10006 PO
[2019-02-22] MEDS ORDERED: NS IV 500 ML 500 ML IV ONE (19:05)
[2019-02-22 19:15] LABS: HEMATOCRIT 39 % (40-54); HEMOGLOBIN 12.3 G/DL (13.3-17.7); LYMPHOCYTES % (AUTO) 20 % (12-44); MEAN CORPUSCULAR HEMOGLOBIN 24 PG (25-34); MEAN CORPUSCULAR HGB CONC 31 G/DL (32-36); MEAN CORPUSCULAR VOLUME 78 FL (80-99); MEAN PLATELET VOLUME 10.1 FL (7.4-10.4); NEUTROPHILS % (AUTO) 68 % (42-75); PLATELET COUNT 206 10^3/uL (130-400); RED CELL DISTRIBUTION WIDTH 19.5 % (10.0-14.5); WHITE BLOOD COUNT 8.1 10^3/uL (4.3-11.0)
[2019-02-22] MEDS ORDERED: fentaNYL INJECTION 100 MCG/2 ML AMP IVP ONE (19:15)
[2019-02-22 19:16] LABS: BASOPHILS % (AUTO) 1 % (0-10); EOSINOPHILS # (AUTO) 0.1 10^3/uL (0.0-0.3); EOSINOPHILS % (AUTO) 2 % (0-10); LYMPHOCYTES # (AUTO) 1.6 X 10^3 (1.0-4.0); MONOCYTES # (AUTO) 0.8 X 10^3 (0.0-1.0); MONOCYTES % (AUTO) 10 % (0-12); NEUTROPHILS # (AUTO) 5.6 X 10^3 (1.8-7.8)
[2019-02-22 19:18] LABS: BILIRUBIN,URINE NEGATIVE (NEGATIVE); CLARITY,URINE CLEAR; COLOR,URINE YELLOW; GLUCOSE, URINE (UA) NEGATIVE (NEGATIVE); KETONES,URINE NEGATIVE (NEGATIVE); LEUKOCYTE ESTERASE ,URINE NEGATIVE (NEGATIVE); NITRITE,URINE NEGATIVE (NEGATIVE); PH,URINE 6 (5-9); PROTEIN,URINE 2+ (NEGATIVE); UROBILINOGEN,URINE 1 MG/DL (NORMAL)
--- NOTE | 2019-02-22 19:20 | ED Abdominal Pain ---
General Chief Complaint: Abdominal/GI Problems Stated Complaint: ABD PAIN Nursing Triage Note: Patient states that his abdominal pain started at around 1700 this evening. Patient complains of severe medial abdominal pain and states that the area is hard. states that he has had a hernia in the past. Patient rates his pain at a 8/10. Patient has had 2 bowel movements today that were normal for him. Sepsis Screen: No Definite Risk Source of Information: Patient, Family Exam Limitations: No Limitations History of Present Illness Date Seen by Provider: Feb 22, 2019 Time Seen by Provider: 18:54 Initial Comments The patient presents to ER by private conveyance with his and chief complaint that he is having abdominal pain for the past 2 hours that has progressively gotten worse, constant, 7-8 out of 10. He has not taken anything for the pain. Salicylate pressure and tightness swelling and distention in his belly especially around the umbilicus. He has a history of a umbilicus hernia repair. He has not had any other abdominal surgeries. He did have a CABG over a month ago. His cardio this is Dr. Lamas and the cardiothoracic surgeon is in [place]. He is known to Dr. George for primary care. He is not having any nausea. He had a bowel movement earlier today which was normal and then again about 3 hours ago he had loose stool. He had something to drink and hour ago and some eat 2 hours ago. He denies any fevers or chills. Allergies and Home Medications Allergies Coded Allergies: amiodarone (Verified Allergy, Severe, Anaphylaxis, 02/22/19) Uncoded Allergies: [id number] (HAYFEVER) (Allergy, Mild, 12/21/08) Home Medications Apixaban 5 Mg Tablet, 5 MG PO BID Prescribed by: TRACIE JOHNSON on 09/27/18 1029 Furosemide 40 Mg Tablet, 40 MG PO DAILY Prescribed by: TARCIE JOHNSON on 09/27/18 1029 Potassium Chloride 20 Meq Tab.er.prt, 20 MEQ PO DAILY@0700 Prescribed by: TRACIE JOHNSON on 09/27/18 1029 Patient Home Medication List Home Medication List Reviewed: Yes Review of Systems Review of Systems Constitutional: No chills, No diaphoresis EENTM: No Blurred Vision, No Double Vision Respiratory: Denies Cough, Denies Orthopnea Cardiovascular: Denies Chest Pain; Edema Gastrointestinal: See HPI, Abdomen Distended, Abdominal Pain; Denies Constipated, Denies Diarrhea, Denies Nausea Genitourinary: Denies Burning, Denies Discharge Musculoskeletal: No back pain, No gout Past Fawuknj-Sqxsmm-Hexdfv Hx Patient Social History Alcohol Use: Denies Use Alcohol Beverage of Choice: Beer Recreational Drug Use: No Smoking Status: Never a Smoker Type Used: Smokeless Tobacco Former Smoker, Quit: Jun 03, 1981 2nd Hand Smoke Exposure: No Recent Foreign Travel: No Contact w/Someone Who Travel: No Recent Infectious Disease Expo: No Recent Hopitalizations: Yes Physical Abuse: No Sexual Abuse: No Mistreated: No Fear: No Immunizations Up To Date Tetanus Booster (TDap): More than 5yrs PED Vaccines UTD: Yes Date of Pneumonia Vaccine: Aug 14, 2017 Date of Influenza Vaccine: Apr 25, 2018 Seasonal Allergies Seasonal Allergies: Yes Past Medical History Surgeries: Yes (CARPEL TUNNEL SARAHI,ANTERIOR COMPARTMENT SYNDROM R LEG, BILAT knee scope, ) CABG, Orthopedic, Tonsillectomy Respiratory: Yes Sleep Apnea Currently Using CPAP: Yes Currently Using BIPAP: No Cardiac: Yes (2 STENTS-CABG x 4) Atrial Fibrillation, Chronic Edema/Swelling, Coronary Artery Disease, High C holesterol, Hypertension Neurological: Yes Seizure Disorder Reproductive Disorders: No Sexually Transmitted Disease: No HIV/AIDS: No Genitourinary: Yes Benign Prostatic Hyperpl Gastrointestinal: Yes (UMB HERNIA REPAIR) Gastroesophageal Reflux, Larios's Esophagus, Hiatal Hernia Musculoskeletal: Yes Degenerate Disk Disease, Arthritis, Chronic Back Pain, Gout Endocrine: Yes Diabetes, Non-Insulin dep HEENT: No Loss of Vision: Denies Hearing Impairment: Denies Cancer: No Psychosocial: Yes Depression Integumentary: Yes (CELLULITIS LEFT LOWER EXTREMITY) Blood Disorders: No Adverse Reaction/Blood Tranf: Yes (fever-lab stated he had an adverse reaction ) Family Medical History Cardiovascular disease 19 FATHER 19 MOTHER Diabetes mellitus 19 FATHER 19 MOTHER G8 BROTHER Hypertension 19 FATHER Physical Exam Vital Signs Vital Signs - First Documented 02/22/19 18:44 Temp 98.0 Pulse 67 Resp 18 B/P (MAP) 180/91 (120) Pulse Ox 98 O2 Delivery Room Air Capillary Refill : Less Than 3 Seconds Height/Weight/BMI Height: 6'0" Weight: 252lbs. 0oz. [id number]; 33.1 BMI Method:Stated General Appearance: WD/WN, mild distress HEENT: PERRL/EOMI, pharynx normal Neck: full range of motion, normal inspection Respiratory: lungs clear, normal breath sounds, no respiratory distress, no accessory muscle use Cardiovascular: normal peripheral pulses, regular rate, rhythm, other (1+ pitting edema bilateral lower extremities at the ankle) Peripheral Pulses: 2+ Radial Pulses (R), 2+ Radial Pulses (L) Gastrointestinal: no pulsatile mass ( and suprapubic), abnormal bowel sounds (hyperactive all 4 quadrants); No rebound; tenderness (especially around the umbilicus) Neurologic/Psychiatric: alert, normal mood/affect, oriented x 3 Focused Exam Lactate Level 02/22/19 19:08: Lactic Acid Level 0.94 Lactic Acid Level Laboratory Tests Test 02/22/19 19:08 Lactic Acid Level 0.94 MMOL/L (0.50-2.00) Progress/Results/Core Measures Results/Orders Lab Results Laboratory Tests Test 02/22/19 18:56 02/22/19 19:06 02/22/19 19:08 Range/Units White Blood Count 8.1 4.3-11.0 10^3/uL Red Blood Count 5.05 4.35-5.85 10^6/uL Hemoglobin 12.3 L 13.3-17.7 G/DL Hematocrit 39 L 40-54 % Mean Corpuscular Volume 78 L 80-99 FL Mean Corpuscular Hemoglobin 24 L 25-34 PG Mean Corpuscular Hemoglobin Concent 31 L 32-36 G/DL Red Cell Distribution Width 19.5 H 10.0-14.5 % Platelet Count 206 130-400 10^3/uL Mean Platelet Volume 10.1 7.4-10.4 FL Neutrophils (%) (Auto) 68 42-75 % Lymphocytes (%) (Auto) 20 12-44 % Monocytes (%) (Auto) 10 0-12 % Eosinophils (%) (Auto) 2 0-10 % Basophils (%) (Auto) 1 0-10 % Neutrophils # (Auto) 5.6 1.8-7.8 X 10^3 Lymphocytes # (Auto) 1.6 1.0-4.0 X 10^3 Monocytes # (Auto) 0.8 0.0-1.0 X 10^3 Eosinophils # (Auto) 0.1 0.0-0.3 10^3/uL Basophils # (Auto) 0.0 0.0-0.1 10^3/uL Sodium Level 139 135-145 MMOL/L Potassium Level 4.4 3.6-5.0 MMOL/L Chloride Level 105 98-107 MMOL/L Carbon Dioxide Level 24 21-32 MMOL/L Anion Gap 10 5-14 MMOL/L Blood Urea Nitrogen 16 7-18 MG/DL Creatinine 1.17 0.60-1.30 MG/DL Estimat Glomerular Filtration Rate > 60 BUN/Creatinine Ratio 14 Glucose Level 89 70-105 MG/DL Calcium Level 9.5 8.5-10.1 MG/DL Corrected Calcium 9.3 8.5-10.1 MG/DL Magnesium Level 1.8 1.8-2.4 MG/DL Total Bilirubin 0.6 0.1-1.0 MG/DL Aspartate Amino Transf (AST/SGOT) 23 5-34 U/L Alanine Aminotransferase (ALT/SGPT) 28 0-55 U/L Alkaline Phosphatase 193 H 40-136 U/L C-Reactive Protein High Sensitivity 1.22 H 0.00-0.50 MG/DL B-Type Natriuretic Peptide 530.4 H <100.0 PG/ML Total Protein 7.0 6.4-8.2 GM/DL Albumin 4.2 3.2-4.5 GM/DL Urine Color YELLOW Urine Clarity CLEAR Urine pH 6 5-9 Urine Specific [place] 1.015 L 1.016-1.022 Urine Protein 2+ H NEGATIVE Urine Glucose (UA) NEGATIVE NEGATIVE Urine Ketones NEGATIVE NEGATIVE Urine Nitrite NEGATIVE NEGATIVE Urine Bilirubin NEGATIVE NEGATIVE Urine Urobilinogen 1 NORMAL MG/DL Urine Leukocyte Esterase NEGATIVE NEGATIVE Urine RBC (Auto) NEGATIVE NEGATIVE Urine RBC NONE /HPF Urine WBC NONE /HPF Urine Squamous Epithelial Cells RARE /HPF Urine Crystals NONE /LPF Urine Bacteria NEGATIVE /HPF Urine Casts NONE /LPF Urine Mucus NEGATIVE /LPF Urine Culture Indicated NO Lactic Acid Level 0.94 0.50-2.00 MMOL/L My Orders Orders - CHRIS HARO Fentanyl Injection (Sublimaze Injection (02/22/19 19:15) Ct Abdomen/Pelvis W (02/22/19 19:05) BNP (02/22/19 19:05) Cbc With Automated Diff (02/22/19 19:05) Comprehensive Metabolic Panel (02/22/19 19:05) Hs C Reactive Protein (02/22/19 19:05) Lactic Acid Analyzer (02/22/19 19:05) Magnesium (02/22/19 19:05) Ua Culture If Indicated (02/22/19 19:05) Ed Iv/Invasive Line Start (02/22/19 19:05) Ns Iv 500 Ml (Sodium Chloride 0.9%) (02/22/19 19:05) Iohexol Injection (Omnipaque 350 Mg/Ml 1 (02/22/19 20:00) Received Contrast (Hold Metformin- Contr (02/22/19 20:00) Sodium Chloride Flush (Catheter Flush Sy (02/22/19 20:00) Ns (Ivpb) (Sodium Chloride 0.9% Ivpb Bag (02/22/19 20:00) Ciprofloxacin Iv 400mg/200ml (Cipro Iv S (02/22/19 20:30) Ciprofloxacin Tablet (Cipro Tablet) (02/22/19 20:30) Medications Given in ED Current Medications Medications Dose Ordered Sig/Grace Route Start Time Stop Time Status Last Admin Dose Admin Ciprofloxacin 500 mg ONCE ONCE PO 02/22/19 20:30 02/22/19 20:31 DC 02/22/19 20:27 500 MG Fentanyl Citrate 50 mcg ONCE ONCE IVP 02/22/19 19:15 02/22/19 19:16 DC 02/22/19 19:19 50 MCG Iohexol 100 ml ONCE ONCE IV 02/22/19 20:00 02/22/19 20:01 DC 02/22/19 19:56 100 ML Sodium Chloride 10 ml NEEDED PRN IV 02/22/19 20:00 02/22/19 19:56 10 ML Sodium Chloride 100 ml ONCE ONCE IV 02/22/19 20:00 02/22/19 20:01 DC 02/22/19 19:56 80 ML Sodium Chloride 500 ml @ 0 mls/hr Q0M ONCE IV 02/22/19 19:05 02/22/19 19:11 DC 02/22/19 19:19 500 MLS/HR Vital Signs/I&O 02/22/19 18:44 Temp 98.0 Pulse 67 Resp 18 B/P (MAP) 180/91 (120) Pulse Ox 98 O2 Delivery Room Air Blood Pressure Mean: 120 Progress Progress Note #1: Time: 19:23 Progress Note Consider umbilical incarceration versus other obstruction. Lactate looking for nonviable bowel. We'll start with 500 cc of fluids since the reports the patient has easily gone into pulmonary fluid overload. IV contrast CT of the abdomen and pelvis. Fentanyl 50 g for pain. Progress Note #2: Time: 20:35 Progress Note Patient says his pain has significantly improved down to a 5 or 6 out of 10. Nausea is still not better. I will send him home with some hydrocodone, Zofran given his first dose of Cipro. Diagnostic Imaging Diagonstic Imaging: CT (with IV contrast) Plain Films/CT/US/NM/MRI: abdomen, pelvis Comments NAME: DWIGHT MAC MED REC#: [id number] PT STATUS: REG ER : 1955 PHYSICIAN: CHRIS HARO MD ADMIT DATE: 02/22/19/ER Draft Date of Exam:02/22/19 CT ABDOMEN/PELVIS W PROCEDURE: CT abdomen and pelvis with contrast. TECHNIQUE: Multiple contiguous axial images were obtained through the abdomen and pelvis after administration of intravenous contrast. Auto Exposure Controls were utilized during the CT exam to meet ALARA standards for radiation dose reduction. INDICATION: Abdominal pain. COMPARISON: 06/22/2017. FINDINGS: This patient has small left greater than right nonloculated pleural effusions layering dependently. There is mild hepatic steatosis but this is less pronounced than what is seen on the comparison exam. The gallbladder is nondistended but its wall does appear to be thickened and there is a suggestion of some para cholecystic fluid and/or edema. No visualized radiodense gallstone. The pancreas and its duct have an unremarkable appearance. The spleen is within normal limits. There is a small hiatal hernia. The adrenals are negative. Stomach is nondilated. There is no free air. There is a small amount of pelvic free fluid dependently as well as between the loops of pelvic small bowel. No evidence for small or large bowel obstruction. There are no findings of appendicitis or diverticulitis. Some thickening of the morocho of the urinary bladder, cystitis could not be excluded in the appropriate scenario. There is aortoiliac and mesenteric atherosclerotic vascular calcifications without beba aneurysm or focal arterial obstruction. IMPRESSION: Abnormal appearance of the thickened gallbladder, partly contracted, with regional pericholecystic fluid and edema. Cholecystitis could not be excluded. No radiopaque CT appreciable stone. Trace free fluid in the abdomen and pelvis. Small nonloculated pleural effusions. Thickening of the urinary bladder, nonspecific. Unobstructed kidneys. Dictated on workstation # [id number] Dict: 02/22/192002 Trans: 02/22/192010 PJE [id number] Interpreted by: LAMONT GREEN Electronically signed by: Reviewed: Reviewed by Me Consults : Consulting Physician: WANDA JACKSON MD Consults Notes Discussed the case with the general surgeon and he agrees the patient is very high risk for surgery and does not necessarily needed tonight or even this week. No elevated white count. We can make the patient comfortable some pain medicine, nausea medicine. Ciprofloxacin and follow-up clinic that would be preferable. Surgeon is familiar with this patient. We discussed later in the month Dr. Cr has plans to see the patient outpatient and try and get him discontinued on Eliquis loop recorder is negative. Departure Impression Primary Impression: Biliary colic Disposition: HOME, SELF-CARE Condition: Improved Departure-Patient Inst. Decision time for Depature: 20:40 Referrals: JEROME GEORGE MD (PCP/Family) Primary Care Physician WANDA JACKSON MD Patient Instructions: Cholecystectomy (DC) Add. Discharge Instructions: Call Dr. Jackson and request a follow-up appointment. Follow-up with your primary care doctor to help manage her symptoms. Avoid greasy, dairy, spicy, red meat foods. Eat high fiber foods. Continue use your antacid daily. Use the hydrocodone one tablet every 6 hours as needed for breakthrough pain. Use the Zofran 1 tablet every 6 hours as needed for nausea. Return to the ER if you have intractable pain, nausea or fever. Use the ciprofloxacin 1 tablet twice daily for the next week. All discharge instructions reviewed with patient and/or family. Voiced understanding. Scripts Ondansetron (Ondansetron Odt) 4 Mg Tab.rapdis 4 MG PO Q6H PRN for NAUSEA/VOMITING-1ST LINE, #20 TAB 0 Refills Prov: CHRIS HARO 02/22/19 Hydrocodone Bit/Acetaminophen (Hydrocodone/Acetaminophen 5/325mg Tablet) 1 Tab Tab 1 EACH PO Q4-6HR PRN for PAIN-MODERATE MDD 10 for 3 Days, #14 TAB 0 Refills Prov: CHRIS HARO 02/22/19 Ciprofloxacin HCl (Ciprofloxacin HCl) 500 Mg Tablet 500 MG PO BID, #14 TAB Prov: CHRIS HARO 02/22/19 CHRIS HARO Feb 22, 2019 19:20
[2019-02-22 19:25] LABS: BACTERIA,URINE NEGATIVE /HPF; SQUAMOUS EPITHELIAL CELL,UR RARE /HPF
[2019-02-22 19:27] LABS: ALANINE AMINOTRANSFERASE 28 U/L (0-55); ALBUMIN 4.2 GM/DL (3.2-4.5); ALKALINE PHOSPHATASE 193 U/L (40-136); BILIRUBIN,TOTAL 0.6 MG/DL (0.1-1.0); BUN/CREATININE RATIO 14; CALCIUM 9.5 MG/DL (8.5-10.1); CARBON DIOXIDE 24 MMOL/L (21-32); CHLORIDE 105 MMOL/L (98-107); CREATININE SERUM 1.17 MG/DL (0.60-1.30); GFR ESTIMATED > 60; GLUCOSE 89 MG/DL (70-105); MAGNESIUM 1.8 MG/DL (1.8-2.4); POTASSIUM 4.4 MMOL/L (3.6-5.0); SODIUM 139 MMOL/L (135-145)
[2019-02-22] MEDS ORDERED: IOHEXOL 350 MG/ML 100 ML (OMNIPAQUE 350) VIAL IV ONE (20:00)
[2019-02-22] MEDS ORDERED: NS 100 ML (IVPB) BAG IV ONE (20:00)
[2019-02-22] MEDS ORDERED: CATHETER FLUSH 10 ML SYR IV PRN (20:00)
[2019-02-22] MEDS ORDERED: HOLD METFORMIN - RECEIVED CONTRAST 20 ML VIAL IV SCH (20:00)
--- NOTE | 2019-02-22 20:12 | Diagnostic Imaging Report ---
PROCEDURE: CT abdomen and pelvis with contrast. TECHNIQUE: Multiple contiguous axial images were obtained through the abdomen and pelvis after administration of intravenous contrast. Auto Exposure Controls were utilized during the CT exam to meet ALARA standards for radiation dose reduction. INDICATION: Abdominal pain. COMPARISON: 06/22/2017. FINDINGS: This patient has small left greater than right nonloculated pleural effusions layering dependently. There is mild hepatic steatosis but this is less pronounced than what is seen on the comparison exam. The gallbladder is nondistended but its wall does appear to be thickened and there is a suggestion of some para cholecystic fluid and/or edema. No visualized radiodense gallstone. The pancreas and its duct have an unremarkable appearance. The spleen is within normal limits. There is a small hiatal hernia. The adrenals are negative. Stomach is nondilated. There is no free air. There is a small amount of pelvic free fluid dependently as well as between the loops of pelvic small bowel. No evidence for small or large bowel obstruction. There are no findings of appendicitis or diverticulitis. Some thickening of the morocho of the urinary bladder, cystitis could not be excluded in the appropriate scenario. There is aortoiliac and mesenteric atherosclerotic vascular calcifications without beba aneurysm or focal arterial obstruction. IMPRESSION: Abnormal appearance of the thickened gallbladder, partly contracted, with regional pericholecystic fluid and edema. Cholecystitis could not be excluded. No radiopaque CT appreciable stone. Trace free fluid in the abdomen and pelvis. Small nonloculated pleural effusions. Thickening of the urinary bladder, nonspecific. Unobstructed kidneys. Dictated by: Dictated on workstation # [id number]
[2019-02-22] MEDS ORDERED: CIPROFLOXACIN 500 MG (CIPRO) TABLET PO ONE (20:30)
[2019-02-22] MEDS ORDERED: CIPROFLOXACIN IV 400MG/200ML 200 ML IV ONE (20:30)
[2019-02-22] MEDS ORDERED: ONDA4TAB11 PO (20:44)
[2019-02-22] MEDS ORDERED: CIPR500T4 PO (20:44)
[2019-02-22] MEDS ORDERED: ACHD5005 PO (20:44)
[2019-02-22] MEDS ORDERED: RX-HYDROCODONE/APAP 5/325 MG #4 TAB PK PO PRN (20:45)
[2019-02-22] MEDS ORDERED: RX-ONDANSETRON 4 MG ODT (ZOFRAN) PPK #4 PO STA (20:45)
[2019-02-22] MEDS ORDERED: RX-OXYCODONE/APAP 5-325 MG #4 TAB PK PO PRN (21:00)
[2019-02-22 21:08] VITALS: BP 174/89
[2019-02-22] MEDS ORDERED: HYDROcodone/APAP 5 MG/325 MG (LORTAB) TAB PO ONE (21:15)
== END 2019-02-22 21:08 | disposition home or self-care (01) ==
LOC: EDUNIT# 18:36 → ER 18:37
DX: K80.50 Calculus of bile duct without cholangitis or cholecystitis without obstruction (principal); I10 Essential (primary) hypertension; E11.9 Type 2 diabetes mellitus without complications; F32.9 Major depressive disorder, single episode, unspecified; I48.91 Unspecified atrial fibrillation; E78.00 Pure hypercholesterolemia, unspecified; I25.10 Atherosclerotic heart disease of native coronary artery without angina pectoris; G40.909 Epilepsy, unspecified, not intractable, without status epilepticus; K21.9 Gastro-esophageal reflux disease without esophagitis; M10.9 Gout, unspecified; G47.30 Sleep apnea, unspecified; Z99.89 Dependence on other enabling machines and devices; Z95.1 Presence of aortocoronary bypass graft; Z88.8 Allergy status to other drugs, medicaments and biological substances; Z79.01 Long term (current) use of anticoagulants; Z90.89 Acquired absence of other organs; Z82.49 Family history of ischemic heart disease and other diseases of the circulatory system
CPT/HCPCS: 36415; 74177; 80053; 81000; 83605; 83735; 83880; 85025; 86141; 96361; 96374

== ENCOUNTER → 2019-02-24 | Outpatient (RCR) | payer OTHER, MEDICARE ==
[~2019-02-24] MED LIST changes: +CIPR500T4 PO; +ONDA4TAB11 PO
== END | disposition home or self-care (01) ==
LOC: CR3 01-25 08:28
PROVIDERS: ATTEND Internal Medicine Cardiovascular Disease
DX: Z29.8 Encounter for other specified prophylactic measures (principal)

== ENCOUNTER 2019-03-22 10:56 | Outpatient (CLI) | payer OTHER, MEDICARE ==
[~2019-03-22] VITALS: Ht 182.9 cm; Wt 112.0 kg
[2019-03-22] MEDS ORDERED: ATOR40TA70 PO (13:46)
[2019-03-22] MEDS ORDERED: METO100T12 PO (13:46)
[2019-03-22] MEDS ORDERED: SENN-145 PO (13:46)
[2019-03-22] MEDS ORDERED: POTA20TA15 PO (13:46)
[2019-03-22] MEDS ORDERED: FURO40TA4 PO (13:46)
[2019-03-22] MEDS ORDERED: ARIP2TAB3 PO (13:46)
[2019-03-22] MEDS ORDERED: ALLO100T PO (13:46)
[2019-03-22] MEDS ORDERED: CHOL100045 PO (13:46)
[2019-03-22] MEDS ORDERED: ASPI-586 PO (13:46)
[2019-03-22] MEDS ORDERED: FLUO40CA PO (13:46)
[2019-03-22] MEDS ORDERED: ACET-2267 PO (13:53)
[2019-03-22] MEDS ORDERED: CYAN100088 PO (13:54)
[2019-03-22] MEDS ORDERED: METR500T PO (13:54)
[2019-03-22] MEDS ORDERED: TRAM-42 PO (13:54)
[2019-03-22] MEDS ORDERED: FOLI0.4T2 PO (13:54)
[2019-03-22] MEDS ORDERED: DEXL60CA PO (13:54)
[2019-03-22] MEDS ORDERED: AMLO5TAB4 PO (13:54)
[2019-03-22] MEDS ORDERED: TRAM50TA2 PO (13:54)
[2019-03-22] MEDS ORDERED: CIPR-225 PO (13:54)
[2019-03-22] MEDS ORDERED: UBID200C36 PO (13:54)
[2019-03-23] MEDS ORDERED: HYDR-34 PO (10:10)
== END 2019-03-22 13:55 | disposition home or self-care (01) ==
LOC: PREOP 10:56
PROVIDERS: ATTEND Surgery
DX: Z01.818 Encounter for other preprocedural examination (principal)

== ENCOUNTER 2019-03-23 09:02 | Day surgery (SDC) | payer OTHER, MEDICARE ==
[2019-03-23] VITALS (13 sets, daily range): BP systolic 141–177; BP diastolic 79–98
[~2019-03-23] VITALS: Ht 182.9 cm; Wt 112.0 kg
[~2019-03-23 09:02] MED LIST changes: +AMLO5TAB4 PO; +CHOL100045 PO; +CIPR-225 PO; +METR500T PO; +SENN-145 PO; +TRAM-42 PO
[2019-03-23] MEDS ORDERED: LACTATED RINGERS 1,000 ML IV PRN (10:03)
--- NOTE | 2019-03-23 10:08 | Progress Note-Pre Operative ---
Pre-Operative Progress Note H&P Reviewed The H&P was reviewed, patient examined and no changes noted. Date Seen by Provider: Mar 23, 2019 Time Seen by Provider: 10:00 Date H&P Reviewed: Mar 23, 2019 Time H&P Reviewed: 10:00 Pre-Operative Diagnosis: chronic calc nan, barretts, hx colitis WANDA MARTELL MD Mar 23, 2019 10:08
[2019-03-23] MEDS ORDERED: HYDR-34 PO (10:10)
--- NOTE | 2019-03-23 10:10 | Discharge Inst-Surgical ---
D/C Lap Instructions-JAYSHREE New, Converted, or Re-Newed RX: RX on Chart Follow Up Appt in 2 weeks Activity as tolerated No driving for 24 hours No driving while on pain medications Incentive Spirometry use every 2 hours while awake Regular Diet Symptoms to Report: Fever over 101 degree F, Nausea/Vomiting Infection Signs and Symptoms to report: Increased redness, Foul odor of wound, Increased drainage Bathing instructions: May shower Operative Area Clean/Dry; Keep incision clean/dry If any problems/questions: Contact your physician or go to Emergency Room WANDA MARTELL MD Mar 23, 2019 10:10
[2019-03-23] MEDS ORDERED: ceFAZolin 2 GM/50 ML NS 50 ML IV ONE (10:15)
[2019-03-23] MEDS ORDERED: oxyCODONE/APAP 5/325MG (PERCOCET 5) TABLET PO PRN (10:15)
[2019-03-23] MEDS ORDERED: morphine INJ 10 MG/ML 1ML (SYR OR VIAL) IVP PRN ×2 (10:15)
[2019-03-23] MEDS ORDERED: ONDANSETRON 4 MG/2 ML (SDV) Z0FRAN IVP PRN ×2 (10:15→14:15)
[2019-03-23] MEDS ORDERED: ACETAMINOPHEN 325 MG TABLET PO PRN (10:15)
[2019-03-23] MEDS ORDERED: fentaNYL INJECTION 100 MCG/2 ML AMP ONE ×4 (10:27→14:26)
[2019-03-23] MEDS ORDERED: fentaNYL INJECTION 100 MCG/2 ML AMP IVP ONE ×2 (10:30→14:15)
[2019-03-23] MEDS ORDERED: BUP/EPI 0.5% 1:200,000 (MARCAINE) 10ML VIAL IJ ONE (10:39)
[2019-03-23] MEDS ORDERED: MIDAZOLAM 2 MG/2 ML (VERSED) VIAL ONE (10:43)
[2019-03-23] MEDS ORDERED: ROCURONIUM 10 MG/ML 5 ML SYRINGE IV ONE (10:59)
[2019-03-23] MEDS ORDERED: LIDOCAINE PF 2% 5 ML (XYLOCAINE) VIAL ONE (10:59)
[2019-03-23] MEDS ORDERED: ONDANSETRON 4 MG/2 ML (SDV) Z0FRAN ONE (10:59)
[2019-03-23] MEDS ORDERED: SEVOFLURANE (ULTANE) 15 ML INHAL SOLN ONE ×5 (10:59→14:00)
[2019-03-23] MEDS ORDERED: proPOfol 200 MG/20 ML (DIPRIVAN) VIAL IV ONE (10:59)
[2019-03-23] MEDS ORDERED: NEOSTIGMINE 3 MG/3 ML VIAL ONE (11:00)
[2019-03-23] MEDS ORDERED: GLYCOPYRROLATE 0.2 MG/ML (ROBINUL) 2 ML VIAL ONE (11:00)
--- NOTE | 2019-03-23 13:16 | Progress Note-Post Operative ---
Post-Operative Progess Note Surgeon (s)/Machine Iii Coremaker (s) Surgeon Dr. Dilan Jackson M.D. Machine Iii Coremaker: Kevin Garcia LINE SERVER Pre-Operative Diagnosis chronic calc nan, barretts, hx colitis Post-Operative Diagnosis Chronic acalculous cholecystitis, clinical Larios's esophagitis, moderate hiatal hernia (3 cm), fundal polyp, moderate gastritis, chronic external and internal stage II hemorrhoids. Procedure & Operative Findings Date of Procedure 03/23/19 Procedure Performed/Findings Laparoscopic cholecystectomy, EGD with biopsy, Colonoscopy Anesthesia Type GET Estimated Blood Loss Estimated blood loss (mL): Minimal Specimens/Packing Specimens Removed 1) Gallbladder 2) Antrum 3) Fundic polyp 4) GE [place] KEVIN GARCIA LINE SERVER Mar 23, 2019 13:16
[2019-03-23] MEDS ORDERED: hydrALAZINE (APESOLINE) 20 MG/ML VIAL ONE (13:52)
[2019-03-23] MEDS ORDERED: hydrALAZINE (APESOLINE) 20 MG/ML VIAL IV PRN (14:15)
[2019-03-23] MEDS ORDERED: morphine INJ 10 MG/ML 1ML (SYR OR VIAL) IVP ONE (14:15)
--- NOTE | 2019-03-23 14:37 | Anesthesia-General Post-Op ---
General Patient Condition Mental Status/LOC: Same as Preop Cardiovascular: Satisfactory Nausea/Vomiting: Absent Respiratory: Satisfactory Pain: Controlled Complications: Absent Post Op Complications Complications None Follow Up Care/Instructions Patient Instructions None needed. Anesthesia/Patient Condition Patient Condition Patient is doing well, no complaints, stable vital signs, no apparent adverse anesthesia problems. No complications reported per nursing. LANIE MOORE CRNA Mar 23, 2019 14:37
--- NOTE | 2019-03-23 22:36 | OPERATIVE REPORT ---
DATE OF SERVICE: 03/23/2019 ATTENDING PRIMARY CARE PHYSICIAN: Dr. Askew. PREOPERATIVE DIAGNOSES: Chronic acalculous cholecystitis, history of Larios's esophagus, chronic lower quadrant abdominal pain. POSTOPERATIVE DIAGNOSES: Acute on chronic acalculous cholecystitis, reflux esophagitis stage III with clinical Larios's esophagus, moderate size hiatal hernia 4 cm in size, moderate gastritis, chronic stage II external and internal hemorrhoids, remainder of the rectum and colon were normal. PROCEDURE: Laparoscopic cholecystectomy, EGD with biopsy, colonoscopy. SURGEON: Wanda Jackson MD VOLUNTEER MANAGER: Kevin Mishra APRN ANESTHESIA: General endotracheal. ESTIMATED BLOOD LOSS: Minimal. FINDINGS: Same as postoperative diagnosis. DISPOSITION: The patient tolerated the procedure well. INDICATIONS: The patient is a 63-year-old male known to us. We had initially seen him in 2012 for gastroesophageal reflux disease and he underwent an EGD and found to have a reflux esophagitis and a hiatal hernia and biopsies were positive for Larios's esophagus; however, negative for H. pylori. He has had a multitude of medical problems since that time; however, he was found to have significant coronary artery disease and underwent a 4-vessel coronary artery bypass grafting in August 2017 and has had a significant recovery since that time. He has had issues with lower quadrant abdominal pain; however, he has also had pain in the right upper abdominal quadrant with radiation towards the back. A CT scan was performed, which did show gallbladder wall thickening as well as pericholecystic fluid. He also again has had lower crampy abdominal pain. No red blood per rectum nor any dark tarry stools. DESCRIPTION OF PROCEDURE: The patient was brought to the operating room, laid supine on the table. After adequate IV pain and sedative medications and general endotracheal intubation, the abdomen was prepped and draped in standard surgical fashion. A 0.5% Marcaine with epinephrine was then used to anesthetize the overlying skin in the left upper abdominal quadrant and a transverse skin incision made using 15 blade. An 0 silk suture was applied to the medial aspect of the incision for retraction and a Veress needle inserted with a low opening pressure of 0 mmHg. The abdomen was then insufflated to 15 mmHg pressure. The Veress needle removed and a 5 mm Xcel trocar placed followed by a 5 mm 45-degree angle laparoscope visualizing the peritoneal cavity. A 4-quadrant abdominal exploration was performed. There were significant adhesions towards the anterior abdominal wall from a previous umbilical hernia repair. We first proceeded with placement of a right upper abdominal quadrant 5 mm port under direct visualization after the skin and peritoneal lining were anesthetized using 0.5% Marcaine with epinephrine and a transverse skin incision made using a 15 blade. Using blunt dissection along the avascular plane of the omentum along the anterior abdominal wall, this was bluntly dissected using a grasper until the supraumbilical region could be identified and cleared off. This area was then anesthetized and a supraumbilical skin incision was made using a 15 blade. Through this incision, a 10 mm trocar was placed. The patient was then placed in a reverse Trendelenburg position as well as plane right side up, left side down. The fundus of the gallbladder was then retracted anteriorly and superiorly. There was gallbladder wall thickening as well as a small amount of fluid within the pelvis consistent with an acute on chronic cholecystitis. The hepatoduodenal ligament was then opened using blunt dissection as well as electrocautery and hook instrument. The entire critical view of safety was identified including the triangle of Calot as well as the cystic duct and artery as the only two structures going into the gallbladder as well as the cystic plate behind the proximal gallbladder. A timeout was then taken and the cystic duct and artery were then clipped proximally, distally and cut with EndoShears. The gallbladder was then dissected off the liver bed using cautery on hook instrument with visualization of good hemostasis as well as no leaking ducts of Luschka. The gallbladder was removed through the 10 mm port site using an EndoCatch bag. The fascia and peritoneum were then closed under direct visualization using a Yifan-Yeison device and 0 Vicryl suture. The abdomen was desufflated and remaining ports removed. All skin incisions were closed using 4-0 Monocryl and running subcuticular sutures. Wounds were then cleaned and covered with Dermabond. Under the same anesthesia, we then proceeded with EGD portion of the procedure. A mouthpiece was applied. The endoscope was placed in the mouth, visualizing the pharynx and hypopharyngeal region. Vocal cords, epiglottis and vallecula identified and appeared to be normal. The endoscope was then gently intubated the esophageal opening and esophagus insufflated. The endoscope was then advanced to the first, second and third portion of esophagus. At the level of the GE junction, there was a jagged patchy GE junction consistent with small islands consistent with a clinical Larios's esophagus. Multiple biopsies were taken with forceps with visualization of good hemostasis. The endoscope was then advanced in the stomach and endoscope retroflexed, visualizing a moderate sized hiatal hernia approximately 4 cm in size. There was a fundic polyp approximately 4 mm in size. This was removed using a biopsy forceps and electrocautery. A moderate gastritis was noted of the antrum. No formal ulcerations or any neoplasms. A biopsy was taken of the antrum to rule out H. pylori with visualization of good hemostasis. The endoscope was then advanced through the pylorus and the first and second portion of the duodenum, which appeared normal with no distal obstructions. The endoscope was then slowly withdrawn while taking a second look and suctioning of residual air with no additional findings. Under the same anesthesia, we then proceeded with the colonoscopy portion of procedure. The patient was placed in frog leg position and a digital rectal examination was performed. There was mild chronic stage II external and internal hemorrhoids, not actively edematous nor inflamed and no bleeding. Normal sphincter tone was felt and there were no palpable masses. Prostate gland was palpable and appeared normal. The endoscope was then intubated to the anus and rectum gently insufflated. The endoscope was then advanced through the valves of Giang of the rectum with no polyps or any neoplasms identified. The endoscope was then advanced through the sigmoid colon where no diverticulosis identified. The endoscope was then advanced to the remainder of the descending, transverse and ascending colon to the cecum. These segments were normal. There were no polyps or any neoplasms identified throughout the colon or rectum. The endoscope was then slowly withdrawn while taking a second look and suctioning of residual air with no additional findings. The patient tolerated the procedure well. We will start IV and oral pain medication as well as a clear liquid diet. Once he is tolerating clears, has good pain control with oral pain medications, ambulating well, we will discharge him home. He does have what appears to be clinical Larios's esophagus and we will await the final pathology results; however, he needs to proceed with the necessary lifestyle and diet accommodation including avoidance of caffeinated beverages, spicy, greasy and acidic foods as well as weight loss and management techniques. He is currently on Dexilant and we will add Carafate 1 gram q.i.d. for the next two weeks as well on a p.r.n. basis. We will also recommend a high fiber diet with at least 30 grams of fiber daily as well as 64 fluid ounces of water daily to promote soft stools on a daily basis. No polyps were identified and he does not have a family history of colon cancer. He may wait 10 years for his next colonoscopy. Job ID: [id number] DocumentID: [id number] Dictated Date: 03/23/2019 14:06:34 Drip Box Tender Date: 03/23/2019 22:35:50 Dictated By: WANDA JACKSON MD
== END 2019-03-23 16:42 | disposition home or self-care (01) ==
LOC: SDC 09:02
PROVIDERS: ATTEND Surgery
DX: K81.1 Chronic cholecystitis (principal); K21.0 Gastro-esophageal reflux disease with esophagitis; K22.70 Barrett's esophagus without dysplasia; K44.9 Diaphragmatic hernia without obstruction or gangrene; K29.70 Gastritis, unspecified, without bleeding; K64.1 Second degree hemorrhoids; I25.10 Atherosclerotic heart disease of native coronary artery without angina pectoris; E78.00 Pure hypercholesterolemia, unspecified; M10.9 Gout, unspecified; I10 Essential (primary) hypertension; G47.33 Obstructive sleep apnea (adult) (pediatric); I48.91 Unspecified atrial fibrillation; E66.9 Obesity, unspecified; Z68.33 Body mass index [BMI] 33.0-33.9, adult; F32.9 Major depressive disorder, single episode, unspecified; Z87.01 Personal history of pneumonia (recurrent); Z79.01 Long term (current) use of anticoagulants; Z79.82 Long term (current) use of aspirin; Z79.899 Other long term (current) drug therapy; Z87.891 Personal history of nicotine dependence; Z95.1 Presence of aortocoronary bypass graft; Z11.2 Encounter for screening for other bacterial diseases
CPT/HCPCS: 82962; 87081; 88304; 88305

== ENCOUNTER → 2019-03-29 | Outpatient (RCR) | payer OTHER, MEDICARE ==
[~2019-03-29] MED LIST changes: +morphine INJ 10 MG/ML 1ML (SYR OR VIAL) ONE
== END | disposition home or self-care (01) ==
LOC: CR3 02-27 06:00
PROVIDERS: ATTEND Internal Medicine Cardiovascular Disease
DX: Z03.89 Encounter for observation for other suspected diseases and conditions ruled out (principal)

== ENCOUNTER 2019-04-28 06:35 | Outpatient (RCR) | payer OTHER, MEDICARE ==
[~2019-04-28 06:35] MED LIST changes: -morphine INJ 10 MG/ML 1ML (SYR OR VIAL) ONE
== END 2019-04-30 | disposition home or self-care (01) ==
LOC: CR3 06:35
PROVIDERS: ATTEND Internal Medicine Cardiovascular Disease
DX: Z29.8 Encounter for other specified prophylactic measures (principal)

== ENCOUNTER → 2019-05-11 | Outpatient (CLI) | payer OTHER, MEDICARE ==
--- NOTE | 2019-05-11 14:42 | Diagnostic Imaging Report ---
PROCEDURE: CT abdomen and pelvis without contrast. TECHNIQUE: Multiple contiguous axial images were obtained through the abdomen and pelvis without the use of intravenous contrast. Auto Exposure Controls were utilized during the CT exam to meet ALARA standards for radiation dose reduction. INDICATION: Bladder pain. Comparison is made to examination of 02/22/2019. FINDINGS: Unenhanced images of the liver reveal no significant change. Focal low density along the anterior left lobe, laterally may represent focal fatty deposition or cyst. Gallbladder is surgically absent. There is no biliary ductal dilatation. There is mild hiatal hernia. No splenic or adrenal gland abnormality is identified. Evaluation of the kidneys is limited without intravenous contrast, however there is no evidence of hydronephrosis. No urinary tract calculus or obstruction is identified. There is moderate mural thickening involving the urinary bladder although the bladder is not well distended. The appendix has a normal appearance. There is no evidence for free fluid or organized fluid collection. There is mild aortoiliac atherosclerotic calcification. Degenerative changes are seen in the lower lumbar spine with grade I anterolisthesis of L4 on L5. IMPRESSION: Continued mural thickening at the level of the bladder possibly related to cystitis. Otherwise, no acute abnormality or adverse change is seen within the abdomen or pelvis. Dictated by: Dictated on workstation # [id number]
== END ==
LOC: RAD 14:09
PROVIDERS: ATTEND Urology
DX: N32.89 Other specified disorders of bladder (principal)
CPT/HCPCS: 74176

== ENCOUNTER → 2019-05-31 | Outpatient (RCR) | payer OTHER, MEDICARE | END | disposition home or self-care (01) | LOC: CR3 05-01 06:00 | PROVIDERS: ATTEND Internal Medicine Cardiovascular Disease | DX: Z29.8 Encounter for other specified prophylactic measures (principal) ==

== ENCOUNTER 2019-06-26 06:28 | Outpatient (RCR) | payer OTHER, MEDICARE ==
[~2019-06-26 06:28] MED LIST changes: -ARIP2TAB11 PO; +ARIP2TAB20 PO; +METF500T19 PO; -METF500T8 PO; -TRAM50TA2 PO; -TRAZ-222 PO; +TRM50T PO; +TRZ50T PO
[2019-06-28] MEDS ORDERED: TRZ50T PO (10:54)
[2019-06-28] MEDS ORDERED: SUCR1TAB36 PO (10:54)
== END 2019-07-02 | disposition home or self-care (01) ==
LOC: CR3 06:28
PROVIDERS: ATTEND Internal Medicine Cardiovascular Disease
DX: Z29.8 Encounter for other specified prophylactic measures (principal)

== ENCOUNTER 2019-06-28 05:37 | Outpatient (CLI) | payer OTHER, MEDICARE ==
[~2019-06-28] VITALS: Ht 182 cm; Wt 113.6 kg
[~2019-06-28 05:37] MED LIST changes: +ARIP2TAB11 PO; -ARIP2TAB20 PO; -METF500T19 PO; +METF500T8 PO; +TRAM50TA2 PO; +TRAZ-222 PO; -TRM50T PO; -TRZ50T PO
[2019-06-28] MEDS ORDERED: TRAZ-222 PO (10:54)
[2019-06-28] MEDS ORDERED: SUCR1TAB36 PO (10:54)
== END 2019-06-28 11:04 | disposition home or self-care (01) ==
LOC: PREOP 05:37
PROVIDERS: ATTEND Specialist
DX: Z01.818 Encounter for other preprocedural examination (principal)

== ENCOUNTER 2019-06-30 07:07 | Day surgery (SDC) | payer OTHER, MEDICARE ==
[~2019-06-30] VITALS: Ht 182 cm; Wt 113.6 kg
[~2019-06-30 07:07] MED LIST changes: -ARIP2TAB11 PO; +ARIP2TAB20 PO; +METF500T19 PO; -METF500T8 PO; +SUCR1TAB36 PO; -TRAM50TA2 PO; -TRAZ-222 PO; +TRM50T PO; +TRZ50T PO
[2019-06-30 07:15] VITALS: BP 151/79
[2019-06-30] MEDS ORDERED: POVIDONE (BETADINE) OPHTH SOLN 5% 30 ML OP ONE (07:15)
[2019-06-30] MEDS ORDERED: LIDOCAINE PF 1% 2 ML AMP IR PRN (07:15)
[2019-06-30] MEDS ORDERED: TIMOLOL MALEATE 0.5% 5 ML (TIMOPTIC) BTL OU PRN (07:15)
[2019-06-30] MEDS ORDERED: MOXIFLOXACIN OPHTH SOLN 5 MG/ML 0.3 ML SYRINGE OP ONE (07:15)
[2019-06-30] MEDS: TETRACAINE 0.5% OPHTH SOLN 4 ML BTL (SINGLE DOSE ONLY) OU PRN ×4 (07:25→07:54)
[2019-06-30] MEDS: CYCLOPENTOLATE 1% (CYCLOGYL) 2 ML DROPS OP SCH ×3 (07:35→07:54)
[2019-06-30] MEDS: PHENYLEPHRINE 10% OPHTH (NEO-SYN) 5 ML BTL OU SCH ×3 (07:35→07:54)
[2019-06-30] MEDS ORDERED: MIDAZOLAM 2 MG/2 ML (VERSED) VIAL ONE (08:18)
--- NOTE | 2019-06-30 08:19 | Ophthalmologist Pre-Op Note ---
Pre-Operative Progress Note H&P Reviewed The H&P was reviewed, patient examined and no changes noted. Date H&P Reviewed: Jun 30, 2019 Time H&P Reviewed: 08:19 Pre-Op Dx Cataract, Left Eye ENIO MOSLEY MD Jun 30, 2019 08:19 POS
[2019-06-30] MEDS ORDERED: acetaZOLAMIDE ER 500 MG CAP (DIAMOX SEQUELS) PO ONE (08:30)
--- NOTE | 2019-06-30 08:37 | Ophthalmology Operative Report ---
Cataract removal/placement IOL PREOPERATIVE DIAGNOSIS: Cataract Left Eye POSTOPERATIVE DIAGNOSIS: Cataract Left Eye PROCEDURE: Cataract removal and placement of posterior chamber implant, left eye SURGEON: Dale Mosley ANESTHESIA: Topical with sedation COMPLICATIONS: None ESTIMATED BLOOD LOSS: Minimal DESCRIPTION OF PROCEDURE: After proper informed consent was obtained, the patient, a 63 male, was taken to the Operating Room and the left eye was anesthetized with tetracaine. The left eye was then prepped and draped in the usual manner. A wire lid speculum was placed. A paracentesis was made at the left hand position. Preservative free lidocaine was injected into the anterior chamber followed by viscoelastic. A clear corneal incision was made in the temporal position. A capsulorrhexis was preformed and the central nuclear and cortical material were removed. The posterior capsule was polished and an Myles 9.0 AU00T0 was placed into the capsular bag. The residual viscoelastic was aspirated and balanced saline solution was injected into the anterior chamber. Moxifloxacin was injected into the anterior chamber. The wound was checked and found to be water tight. The patient tolerated the procedure well without complications. DALE MOSLEY MD Jun 30, 2019 08:37 POS
[2019-06-30 08:50] VITALS: BP 148/73
--- NOTE | 2019-06-30 11:43 | Anesthesia-General Post-Op ---
MAC Patient Condition Mental Status/LOC: Same as Preop Cardiovascular: Satisfactory Nausea/Vomiting: Absent Respiratory: Satisfactory Pain: Controlled Complications: Absent Post Op Complications Complications None Follow Up Care/Instructions Patient Instructions None needed. Anesthesiology Discharge Order Discharge Order Patient is doing well, no complaints, stable vital signs, no apparent adverse anesthesia problems. No complications reported per nursing. MARKEL MURRAY CRNA Jun 30, 2019 11:43 POS
== END 2019-06-30 08:50 | disposition home or self-care (01) ==
LOC: SDC 07:07
PROVIDERS: ATTEND Specialist
DX: E11.36 Type 2 diabetes mellitus with diabetic cataract (principal); H25.12 Age-related nuclear cataract, left eye; I11.9 Hypertensive heart disease without heart failure; I25.10 Atherosclerotic heart disease of native coronary artery without angina pectoris; E78.5 Hyperlipidemia, unspecified; I48.91 Unspecified atrial fibrillation; K21.9 Gastro-esophageal reflux disease without esophagitis; E78.00 Pure hypercholesterolemia, unspecified; M19.90 Unspecified osteoarthritis, unspecified site; F32.9 Major depressive disorder, single episode, unspecified; F41.9 Anxiety disorder, unspecified; Z88.8 Allergy status to other drugs, medicaments and biological substances; Z79.899 Other long term (current) drug therapy; Z95.818 Presence of other cardiac implants and grafts; Z95.1 Presence of aortocoronary bypass graft; Z83.3 Family history of diabetes mellitus; Z80.9 Family history of malignant neoplasm, unspecified

== ENCOUNTER 2019-07-07 06:05 | Day surgery (SDC) | payer OTHER, MEDICARE ==
[~2019-07-07] VITALS: Ht 182.9 cm; Wt 113.6 kg
[2019-07-07 06:05] VITALS: BP 167/84
[~2019-07-07 06:05] MED LIST changes: +ARIP2TAB11 PO; -ARIP2TAB20 PO; -METF500T19 PO; +METF500T8 PO; +TRAM50TA2 PO; +TRAZ-222 PO; -TRM50T PO; -TRZ50T PO
[2019-07-07] MEDS ORDERED: LIDOCAINE PF 1% 2 ML AMP IR PRN (06:15)
[2019-07-07] MEDS ORDERED: MOXIFLOXACIN OPHTH SOLN 5 MG/ML 0.3 ML SYRINGE OP ONE (06:15)
[2019-07-07] MEDS ORDERED: POVIDONE (BETADINE) OPHTH SOLN 5% 30 ML OP ONE (06:15)
[2019-07-07] MEDS ORDERED: TIMOLOL MALEATE 0.5% 5 ML (TIMOPTIC) BTL OU PRN (06:15)
[2019-07-07] MEDS: TETRACAINE 0.5% OPHTH SOLN 4 ML BTL (SINGLE DOSE ONLY) OU PRN ×4 (06:17→06:40)
[2019-07-07] MEDS: PHENYLEPHRINE 10% OPHTH (NEO-SYN) 5 ML BTL OU SCH ×3 (06:27→06:40)
[2019-07-07] MEDS: CYCLOPENTOLATE 1% (CYCLOGYL) 2 ML DROPS OP SCH ×3 (06:27→06:40)
--- NOTE | 2019-07-07 07:36 | Ophthalmologist Pre-Op Note ---
Pre-Operative Progress Note H&P Reviewed The H&P was reviewed, patient examined and no changes noted. Date H&P Reviewed: Jul 07, 2019 Time H&P Reviewed: 07:35 Pre-Op Dx Cataract, Right Eye ENIO MOSLEY MD Jul 07, 2019 07:35 POS
[2019-07-07] MEDS ORDERED: MIDAZOLAM 2 MG/2 ML (VERSED) VIAL ONE (07:52)
[2019-07-07] MEDS ORDERED: acetaZOLAMIDE ER 500 MG CAP (DIAMOX SEQUELS) PO ONE (08:00)
--- NOTE | 2019-07-07 08:00 | Ophthalmology Operative Report ---
Cataract removal/placement IOL PREOPERATIVE DIAGNOSIS: Cataract Right Eye POSTOPERATIVE DIAGNOSIS: Cataract Right Eye PROCEDURE: Cataract removal and placement of posterior chamber implant, right eye SURGEON: Dale Mosley ANESTHESIA: Topical with sedation COMPLICATIONS: None ESTIMATED BLOOD LOSS: Minimal DESCRIPTION OF PROCEDURE: After proper informed consent was obtained, the patient, a 63 male, was taken to the Operating Room and the right eye was anesthetized with tetracaine. The right eye was then prepped and draped in the usual manner. A wire lid speculum was placed. A paracentesis was made at the left hand position. Preservative free lidocaine was injected into the anterior chamber followed by viscoelastic. A clear corneal incision was made in the temporal position. A capsulorrhexis was preformed and the central nuclear and cortical material were removed. The posterior capsule was polished and Myles 8.5 AU00T0 IOL was placed into the capsular bag. The residual viscoelastic was aspirated and balanced saline solution was injected into the anterior chamber. Moxifloxacin was injected into the anterior chamber. The wound was checked and found to be water tight. The patient tolerated the procedure well without complications. DALE MOSLEY MD Jul 07, 2019 08:00 POS
[2019-07-07 08:10] VITALS: BP 144/77
--- NOTE | 2019-07-07 12:34 | Anesthesia-General Post-Op ---
MAC Patient Condition Mental Status/LOC: Same as Preop Cardiovascular: Satisfactory Nausea/Vomiting: Absent Respiratory: Satisfactory Pain: Controlled Complications: Absent Post Op Complications Complications None Follow Up Care/Instructions Patient Instructions None needed. Anesthesiology Discharge Order Discharge Order Patient is doing well, no complaints, stable vital signs, no apparent adverse anesthesia problems. No complications reported per nursing. PRISCA WESLEY CRNA Jul 07, 2019 12:34 POS
== END 2019-07-07 08:10 | disposition home or self-care (01) ==
LOC: SDC 06:05
PROVIDERS: ATTEND Specialist
DX: H25.11 Age-related nuclear cataract, right eye (principal); K21.9 Gastro-esophageal reflux disease without esophagitis; K22.70 Barrett's esophagus without dysplasia; F41.9 Anxiety disorder, unspecified; F32.9 Major depressive disorder, single episode, unspecified; E11.9 Type 2 diabetes mellitus without complications; E78.00 Pure hypercholesterolemia, unspecified; I10 Essential (primary) hypertension; M06.9 Rheumatoid arthritis, unspecified; Z83.3 Family history of diabetes mellitus; Z95.1 Presence of aortocoronary bypass graft; Z80.9 Family history of malignant neoplasm, unspecified; Z88.8 Allergy status to other drugs, medicaments and biological substances; Z79.82 Long term (current) use of aspirin; Z79.899 Other long term (current) drug therapy

== ENCOUNTER 2019-08-25 06:12 | Outpatient (RCR) | payer OTHER, MEDICARE ==
[~2019-08-25 06:12] MED LIST changes: -ARIP2TAB11 PO; +ARIP2TAB20 PO; +METF500T19 PO; -METF500T8 PO; -TRAM50TA2 PO; -TRAZ-222 PO; +TRM50T PO; +TRZ50T PO
== END 2019-08-27 | disposition home or self-care (01) ==
LOC: CR3 06:12
PROVIDERS: ATTEND Internal Medicine Cardiovascular Disease
DX: Z29.8 Encounter for other specified prophylactic measures (principal)

== ENCOUNTER → 2019-09-01 | Outpatient (CLI) | payer OTHER, MEDICARE ==
[2019-09-01 06:56] LABS: BASOPHILS % (AUTO) 0 % (0-10); EOSINOPHILS # (AUTO) 0.1 10^3/uL (0.0-0.3); EOSINOPHILS % (AUTO) 2 % (0-10); HEMATOCRIT 42 % (40-54); HEMOGLOBIN 13.2 G/DL (13.3-17.7); LYMPHOCYTES # (AUTO) 1.3 X 10^3 (1.0-4.0); LYMPHOCYTES % (AUTO) 19 % (12-44); MEAN CORPUSCULAR HEMOGLOBIN 27 PG (25-34); MEAN CORPUSCULAR HGB CONC 32 G/DL (32-36); MEAN CORPUSCULAR VOLUME 84 FL (80-99); MEAN PLATELET VOLUME 9.9 FL (7.4-10.4); MONOCYTES # (AUTO) 0.6 X 10^3 (0.0-1.0); MONOCYTES % (AUTO) 8 % (0-12); NEUTROPHILS # (AUTO) 4.7 X 10^3 (1.8-7.8); NEUTROPHILS % (AUTO) 70 % (42-75); PLATELET COUNT 173 10^3/uL (130-400); WHITE BLOOD COUNT 6.8 10^3/uL (4.3-11.0)
[2019-09-01 07:18] LABS: ALBUMIN 4.1 GM/DL (3.2-4.5); BILIRUBIN,TOTAL 0.4 MG/DL (0.1-1.0); CALCIUM 9.4 MG/DL (8.5-10.1); CREATININE SERUM 1.34 MG/DL (0.60-1.30); POTASSIUM 4.5 MMOL/L (3.6-5.0); TOTAL PROTEIN 6.8 GM/DL (6.4-8.2)
[2019-09-01 07:39] LABS: FREE T4 (FREE THYROXINE) 0.91 NG/DL (0.70-1.48)
== END ==
LOC: LAB 06:37
PROVIDERS: ATTEND Family Medicine
DX: I10 Essential (primary) hypertension (principal)
CPT/HCPCS: 36415; 80053; 80061; 82043; 83036; 84439; 84443; 85025

== ENCOUNTER → 2019-09-27 | Outpatient (RCR) | payer OTHER, MEDICARE ==
[~2019-09-27] MED LIST changes: -TRAZ-190 PO; +TRAZ-227 PO
== END | disposition home or self-care (01) ==
LOC: CR3 08-28 06:00
PROVIDERS: ATTEND Internal Medicine Cardiovascular Disease
DX: Z29.8 Encounter for other specified prophylactic measures (principal)

== ENCOUNTER → 2019-10-03 | Outpatient (CLI) | payer OTHER, MEDICARE ==
--- NOTE | 2019-10-03 10:26 | Diagnostic Imaging Report ---
INDICATION: Low back pain, radiating down left leg x1 week. TECHNIQUE: AP, Lateral and Spot imaging of the lumbar spine CORRELATION STUDY: 05/18/2008 FINDINGS: Mild, grade 1 spondylolisthesis of L4 on L5 generally stable. Alignment otherwise anatomic. Lumbar vertebral body heights demonstrates very slight loss of height superior L2 endplate. Mild sclerosis of the anterior and superior L3 endplate. Also very slight loss of height superior L1 endplate. Slight anterior wedging of T12. There is mild asymmetric disc space narrowing particularly at the L4-L5 level. Hypertrophic facet arthropathy most pronounced at L5-S1, L4-L5, and L3-L4 level. Likely some degree of neural foraminal narrowing at these levels as well. SI joints with mild sclerosis on the right. IMPRESSION: 1. Unchanged mild, grade 1 spondylolisthesis of L4 on L5. 2. Hypertrophic facet arthropathy at the L3-L4, L4-L5, L5-S1 levels. Component of foraminal narrowing not excluded. 3. Mild loss of height superior multiple lumbar levels. Findings are likely chronic. Acute mild compression deformity considered less likely but not excluded. If there is a focal symptom, correlation with MRI would be recommended. Dictated by: Dictated on workstation # [id number]
== END ==
LOC: RAD 08:12
PROVIDERS: ATTEND Family Medicine
DX: M43.16 Spondylolisthesis, lumbar region (principal); M47.817 Spondylosis without myelopathy or radiculopathy, lumbosacral region; M51.36 Other intervertebral disc degeneration, lumbar region
CPT/HCPCS: 72100

== ENCOUNTER 2019-10-06 06:09 | Outpatient (RCR) | payer OTHER, MEDICARE | END 2019-10-29 | disposition home or self-care (01) | LOC: CR3 06:09 | PROVIDERS: ATTEND Internal Medicine Cardiovascular Disease | DX: Z29.8 Encounter for other specified prophylactic measures (principal) ==

== ENCOUNTER 2020-01-04 11:06 | Outpatient (RCR) | payer OTHER, MEDICARE ==
[~2020-01-04 11:06] MED LIST changes: +METF-865 PO; -METF500T19 PO
== END 2020-01-09 | disposition home or self-care (01) ==
PROVIDERS: ATTEND Family Medicine
DX: M54.5 Low back pain (principal); E11.9 Type 2 diabetes mellitus without complications; F32.9 Major depressive disorder, single episode, unspecified; I10 Essential (primary) hypertension; H26.9 Unspecified cataract; Z90.49 Acquired absence of other specified parts of digestive tract; Z95.1 Presence of aortocoronary bypass graft

== ENCOUNTER → 2020-03-21 | Outpatient (CLI) | payer OTHER, MEDICARE ==
--- NOTE | 2020-03-21 12:47 | Diagnostic Imaging Report ---
EXAMINATION: Bilateral hands at 09:53 a.m. INDICATION: Hand pain. FINDINGS: Three views of each hand were obtained. There are no prior studies available for comparison. There is no fracture, dislocation, or acute bony abnormality evident. There is mild degenerative disease of the PIP and DIP joints of the digits of each hand. There is also moderate degenerative disease of the second and third metacarpophalangeal joints bilaterally. There are also vague soft tissue calcifications about these joints as well. These findings could be secondary to osteoarthritis alone. Chronic pyrophosphate disease (CPPD) could also present in this manner. In addition, there is also moderate degenerative disease of both triscaphe joints. IMPRESSION: 1. There is no evidence for an acute bony abnormality. 2. There is mild/moderate degenerative disease involving both hands. Dictated by: Dictated on workstation # [id number]
== END ==
LOC: RAD 09:40
PROVIDERS: ATTEND Family Medicine
DX: M19.041 Primary osteoarthritis, right hand (principal); M19.042 Primary osteoarthritis, left hand

== ENCOUNTER 2020-04-03 08:00 | Outpatient (RCR) | payer OTHER, MEDICARE ==
[~2020-04-03 08:00] MED LIST changes: +ASPI-1238 PO; -ASPI-983 PO
== END 2020-04-03 10:05 | disposition home or self-care (01) ==
PROVIDERS: ATTEND Family Medicine
DX: M54.5 Low back pain (principal); E11.9 Type 2 diabetes mellitus without complications; F32.9 Major depressive disorder, single episode, unspecified; I10 Essential (primary) hypertension; H26.9 Unspecified cataract; Z90.49 Acquired absence of other specified parts of digestive tract; Z95.1 Presence of aortocoronary bypass graft

== ENCOUNTER → 2020-05-21 | Outpatient (CLI) | payer OTHER, MEDICARE ==
[~2020-05-21] MED LIST changes: -AMIO200T4 PO; +AMIO200T6 PO; +AMLO-251 PO; -AMLO10TA7 PO
--- NOTE | 2020-05-21 11:38 | Diagnostic Imaging Report ---
EXAMINATION: Magnetic resonance imaging of the left shoulder without contrast. DATE: May 21, 2020. COMPARISON: None. HISTORY: 64-year-old male, left shoulder pain. TECHNIQUE: Magnetic Resonance Imaging sequences were performed of the shoulder without contrast. FINDINGS: ROTATOR CUFF, LIGAMENTS, TENDONS, AND MUSCLES: There is a full thickness, full width tear of the supraspinatus tendon with tendon retraction between the superior humeral head and glenoid measuring 3.8 cm. There is infraspinatus tendinopathy. The teres minor tendon is intact. The subscapularis tendon is intact. There is mild atrophy of the upper aspect of the subscapularis muscle. LONG HEAD OF BICEPS: The proximal long head of biceps tendon is not identified in its intra-articular segment or within the bicipital groove. The tendon is likely torn and retracted proximal to the bicipital groove. GLENOHUMERAL JOINT: The humeral head is well positioned relative to the glenoid. The labrum is grossly intact. There is no identified paralabral cyst. The articular cartilage is grossly intact. There is no joint effusion. ACROMIOCLAVICULAR JOINT: There is widening of the acromioclavicular joint. The coracoclavicular and coracoacromial ligaments are intact. There are no degenerative changes of the acromioclavicular joint. BONE: There is osseous irregularity in the region of the acromioclavicular joint, likely relating to sequela of remote prior injury. There is no os acromiale. There is no Hill-Sachs deformity. There is no acute fracture, bone contusion, or evidence of osteonecrosis. BURSAE AND SOFT TISSUES: Bursal and additional soft tissue assessment is unremarkable. IMPRESSION: 1. Full thickness, full width tear of the supraspinatus tendon with tendon retraction between the level of the superior humeral head and glenoid. Infraspinatus tendinopathy. Mild fatty atrophy of the upper aspect of the subscapularis muscle. 2. Torn and retracted proximal long head of biceps tendon which is located below the level of the bicipital groove. 3. Widening of the acromioclavicular joint with adjacent areas of ossification, likely relating to sequela of remote prior injury. The coracoclavicular and coracoacromial ligaments are intact. 4. Grossly intact labrum and unremarkable additional glenohumeral joint evaluation. 5. No acute fracture, bone contusion, or evidence of osteonecrosis. Dictated by: Dictated on workstation # [id number]
== END ==
LOC: RAD 10:15
PROVIDERS: ATTEND Family Medicine
DX: S46.212A Strain of muscle, fascia and tendon of other parts of biceps, left arm, initial encounter (principal); S46.812A Strain of other muscles, fascia and tendons at shoulder and upper arm level, left arm, initial encounter; X58.XXXA Exposure to other specified factors, initial encounter
CPT/HCPCS: 73221

== ENCOUNTER 2020-06-10 05:40 | Outpatient (RCR) | payer OTHER, MEDICARE ==
[~2020-06-10] VITALS: Ht 182.9 cm
[2020-06-10] MEDS ORDERED: SULF1TAB34 PO (09:53)
[2020-06-10] MEDS ORDERED: CLON-445 PO (09:53)
[2020-06-10] MEDS ORDERED: CHOL100048 PO (09:53)
== END 2020-06-10 10:16 | disposition home or self-care (01) ==
LOC: PREOP 05:40
PROVIDERS: ATTEND Orthopaedic Surgery
DX: Z01.812 Encounter for preprocedural laboratory examination (principal); M75.102 Unspecified rotator cuff tear or rupture of left shoulder, not specified as traumatic; Z20.828 Contact with and (suspected) exposure to other viral communicable diseases
CPT/HCPCS: 87635

== ENCOUNTER 2020-06-12 06:48 | Day surgery (SDC) | payer OTHER, MEDICARE ==
--- NOTE | 2020-06-04 04:38 | HISTORY AND PHYSICAL ---
DATE OF SERVICE: ADMISSION HISTORY AND PHYSICAL DATE OF ADMISSION: 06/12/2020. This will be for outpatient surgery on 06/12/2020 for left shoulder rotator cuff repair. HISTORY OF PRESENT ILLNESS: The patient is a 64-year-old gentleman with complaints of progressive worsening left shoulder pain. He reports progressive loss of function and pain in his shoulder. An MRI revealed a full-thickness supraspinatus tear with retraction to the glenohumeral joint and disruption of his biceps tendon. He reports loss of function and weakness in his shoulder and because of this, I have elected to proceed with surgical intervention. REVIEW OF SYSTEMS: No chest pain, no shortness of breath and no dysuria. PAST MEDICAL HISTORY: Hypoglycemia, alcoholism, allergic rhinitis, cellulitis, chest pain, dyspnea, erectile dysfunction and hiatal hernia. Dyspepsia, malignant hyperthermia, pneumonia, hyperlipidemia, diabetes and sleep apnea. PAST SURGICAL HISTORY: Right knee arthroscopy, bilateral carpal tunnel, right lower extremity compartment syndrome, heart catheterization with coronary artery bypass, tonsillectomy and cholecystectomy. FAMILY HISTORY: Significant for stroke. PRIMARY CARE PROVIDER: Dr. Askew. MEDICATIONS: Lasix, trazodone, Symbyax, folic acid, Abilify, Dexilant, albuterol, metformin, vitamin D, Viagra, tramadol, Lipitor, Trilipix, fenofibric acid, Plavix, metoprolol, potassium, atorvastatin, aspirin and Meloxicam. ALLERGIES: No known drug allergies. SOCIAL HISTORY: The patient drinks alcohol socially. Denies tobacco use. PHYSICAL EXAMINATION: GENERAL: The patient is a well-developed, well-nourished, in no acute distress. HEENT: Normocephalic and atraumatic. Pupils are equal, round and reactive to right. Oropharynx is clear. NECK: Supple, no lymphadenopathy. LUNGS: Clear to auscultation bilaterally. HEART: Regular rate and rhythm. ABDOMEN: Soft, nontender and nondistended. EXTREMITIES: The left shoulder demonstrates active forward elevation of 160 degrees, external rotation of 70 degrees, internal rotation to his beltline. He has a positive Neer's and positive Hawkin sign with marked weakness with abduction and external rotation. IMPRESSION: Left full thickness supraspinatus tear with retraction. PLAN: Left shoulder arthroscopy, acromioplasty and open rotator cuff repair. The risks, benefits, options, ramifications and recovery have been discussed at length with the patient. He understands and wishes to proceed. Job ID: [id number] DocumentID: [id number] Dictated Date: 06/03/2020 08:18:44 Local Telephone Operator Date: 06/03/2020 10:37:41 Dictated By: JELLY CHEEMA MD
[2020-06-12] VITALS (13 sets, daily range): BP systolic 161–195; BP diastolic 80–94
[~2020-06-12] VITALS: Ht 182 cm; Wt 125.0 kg
[~2020-06-12 06:48] MED LIST changes: +CHOL100048 PO; +CLON-445 PO; +SULF1TAB34 PO
[2020-06-12] MEDS ORDERED: LACTATED RINGERS 1,000 ML IV PRN (07:10)
[2020-06-12] MEDS ORDERED: ceFAZolin INJECTION 1,000 MG in WATER (STERILE) FOR INJECTION 10 ML IV ONE (07:15)
[2020-06-12] MEDS ORDERED: CATHETER FLUSH 10 ML SYR IV PRN (07:15)
[2020-06-12] MEDS ORDERED: SULF1TAB34 PO (07:24)
--- NOTE | 2020-06-12 07:34 | Progress Note-Pre Operative ---
Pre-Operative Progress Note H&P Reviewed The H&P was reviewed, patient examined and no changes noted. Date Seen by Provider: Jun 12, 2020 Time Seen by Provider: 07:33 Date H&P Reviewed: Jun 12, 2020 Time H&P Reviewed: 07:34 Pre-Operative Diagnosis: left rotator cuff tear JELLY CHEEMA MD Jun 12, 2020 07:34
--- NOTE | 2020-06-12 07:36 | Progress Note-Post Operative ---
Post-Operative Progess Note Surgeon (s)/Machine Bookkeeper (s) Surgeon JELLY CHEEMA MD Machine Bookkeeper: Joss Leigh Pre-Operative Diagnosis left rotator cuff tear Post-Operative Diagnosis left shoulder rotator cuff tear Procedure & Operative Findings Date of Procedure 06/12/20 Procedure Performed/Findings left shoulder arthroscopic acromioplasty and open rotator cuff repair Anesthesia Type GETA plus interscalene Estimated Blood Loss Estimated blood loss (mL): minimal Specimens/Packing Specimens Removed none Packing: none JELLY CHEEMA MD Jun 12, 2020 07:36
[2020-06-12] MEDS ORDERED: morphine PF (DURAMORPH) 10 MG/10 ML AMP ONE (07:37)
[2020-06-12] MEDS ORDERED: BUPIVACAINE 0.25% 30 ML (SENSORCAINE) VIAL ONE (07:37)
[2020-06-12] MEDS ORDERED: SEVOFLURANE (ULTANE) 15 ML INHAL SOLN ONE ×4 (09:03→10:36)
[2020-06-12] MEDS ORDERED: SUCCINYLCHOLINE INJ 100 MG/5 ML SYR/VIAL ONE (09:03)
[2020-06-12] MEDS ORDERED: proPOfol 200 MG/20 ML (DIPRIVAN) VIAL IV ONE (09:03)
[2020-06-12] MEDS ORDERED: LIDOCAINE PF 2% 5 ML (XYLOCAINE) VIAL ONE (09:03)
[2020-06-12] MEDS ORDERED: ONDANSETRON 4 MG/2 ML (SDV) Z0FRAN ONE (09:03)
[2020-06-12] MEDS ORDERED: fentaNYL INJECTION 100 MCG/2 ML AMP ONE (09:04)
[2020-06-12] MEDS ORDERED: MIDAZOLAM 2 MG/2 ML (VERSED) VIAL ONE (09:04)
[2020-06-12] MEDS ORDERED: GLYCOPYRROLATE 0.2 MG/ML (ROBINUL) 2 ML VIAL ONE (10:04)
[2020-06-12] MEDS ORDERED: ONDANSETRON 4 MG/2 ML (SDV) Z0FRAN IVP PRN (10:30)
[2020-06-12] MEDS ORDERED: morphine INJ 10 MG/ML 1ML (SYR OR VIAL) IVP ONE (10:30)
[2020-06-12] MEDS ORDERED: MEPERIDINE (DEMEROL) INJ 50 MG/ML IVP ONE (10:30)
--- NOTE | 2020-06-12 11:18 | OPERATIVE REPORT ---
DATE OF SERVICE: 06/12/2020 PREOPERATIVE DIAGNOSIS: Left rotator cuff tear. POSTOPERATIVE DIAGNOSIS: Left rotator cuff tear. PROCEDURES PERFORMED: 1. Left open rotator cuff repair. 2. Left shoulder arthroscopic acromioplasty. SURGEON: Lincoln Cheema MD. CLINIC MGR: None. ANESTHESIA: General endotracheal by Luis Alberto Boles CRNA. ESTIMATED BLOOD LOSS: Minimal. DRAINS: None. COMPLICATIONS: None. POSTOPERATIVE PLAN: The sling wear and passive range of motion for 4 weeks. The patient was transferred to the recovery room awake and stable condition. STATEMENT OF MEDICAL NECESSITY: The patient is a 64-year-old right hand dominant gentleman with progressively worsening left shoulder pain and weakness. He had undergone treatment with injections, anti-inflammatories and rest without relief. An MRI revealed a large retracted rotator cuff tear. Due to functional impairment and failure to improve with conservative measures, the patient elected to proceed with surgical intervention. Examination under anesthesia revealed range of motion of forward elevation, 170 degrees, external rotation of 80 degrees and internal rotation of 70 degrees. Arthroscopic findings demonstrated a full thickness anterior supraspinatus tear with retraction to the glenoid. The biceps anchor was absent. The humeral head and glenoid demonstrated no significant chondral abnormalities. The subacromial space demonstrated dense bursitis with sloping of the anterolateral acromion. DESCRIPTION OF PROCEDURE: After risks and benefits of the procedure were discussed and questions were answered, informed consent was signed and placed on chart, the operative site was confirmed in the preoperative holding area initialed by the surgeon. The patient was then transferred to the operating room and after adequate levels of general endotracheal anesthetic were obtained, a timeout was called, confirming the operative site. The left shoulder and upper extremity were prepped and draped in the usual sterile fashion. Shoulder joint was injected with 20 mL of fluid and standard posterior portal was placed. A diagnostic arthroscopy was carried out with the above findings noted. Scope was redirected into the subacromial space. Lateral portal was created and the acromion was planed to a flat type 1 acromion. A bursectomy was performed as well. The lateral portal was then extended. The deltoid was split in line with its fibers leaving attached to the acromion. The rotator cuff tear was mobilized anteriorly, but the anterior aspect was unable to be brought to its attachment site, but the posterior leaflet was brought over the humeral head and using a corkscrew type anchor, a modified Josiah-Damon repair was performed with an excellent repair obtained. The shoulder was copiously irrigated. The deltoid was repaired in a pkch-yg-otwh fashion using #2 FiberWire in a iesham-eo-kqdrs interrupted fashion. The wound was further irrigated, 3-0 Vicryl was used to reapproximate the subcutaneous tissue. The skin was closed with a 4-0 nylon in a running alternating horizontal mattress fashion. The portal sites were closed with 4-0 nylon as well. Shoulder joint was injected with Duramorph. The port sites were infiltrated with plain Marcaine. A soft dressing and sling were applied and the patient was transferred to the recovery room awake and in stable condition. Job ID: [id number] DocumentID: [id number] Dictated Date: 06/12/2020 10:33:02 Holistic Nutritionist Date: 06/12/2020 11:17:57 Dictated By: LINCOLN CHEEMA MD
[2020-06-12] MEDS ORDERED: OXYC-471 PO (11:56)
[2020-06-12] MEDS ORDERED: oxyCODONE/APAP 5/325MG (PERCOCET 5) TABLET PO ONE (12:15)
== END 2020-06-12 13:00 ==
LOC: SDC 06:48
PROVIDERS: ATTEND Orthopaedic Surgery
DX: M75.102 Unspecified rotator cuff tear or rupture of left shoulder, not specified as traumatic (principal); E78.5 Hyperlipidemia, unspecified; E11.9 Type 2 diabetes mellitus without complications; G47.30 Sleep apnea, unspecified; E16.2 Hypoglycemia, unspecified; K44.9 Diaphragmatic hernia without obstruction or gangrene; J18.9 Pneumonia, unspecified organism; Z79.899 Other long term (current) drug therapy; Z79.84 Long term (current) use of oral hypoglycemic drugs
CPT/HCPCS: 23412; 29822; 29826; 82962; 87081; C1713

== ENCOUNTER 2020-08-23 08:22 | Outpatient (RCR) | payer OTHER, MEDICARE ==
--- NOTE | 2020-07-02 15:59 | Anesthesia-General Post-Op ---
General Significant Intra-Op Events Notes ddendum 06-12-20 at 1130 Patient Condition Mental Status/LOC: Same as Preop Cardiovascular: Satisfactory Nausea/Vomiting: Absent Respiratory: Satisfactory Pain: Controlled Complications: Absent Post Op Complications Complications None Follow Up Care/Instructions Patient Instructions None needed. Anesthesia/Patient Condition Patient Condition Patient is doing well, no complaints, stable vital signs, no apparent adverse anesthesia problems. No complications reported per nursing. JAZMYNE JACOBS CRNA Jul 02, 2020 15:59
[~2020-08-23 08:22] MED LIST changes: +OXYC-471 PO
== END 2020-08-23 11:20 | disposition home or self-care (01) ==
PROVIDERS: ATTEND Orthopaedic Surgery
DX: M75.122 Complete rotator cuff tear or rupture of left shoulder, not specified as traumatic (principal); Z98.890 Other specified postprocedural states

== ENCOUNTER → 2020-10-03 | Outpatient (CLI) | payer OTHER, MEDICARE ==
[~2020-10-03] MED LIST changes: -CIPR500T4 PO; +CIPR500T5 PO; +FOLI0.4T6 PO; -OXYC-471 PO; +OXYC1TAB11 PO
--- NOTE | 2020-10-03 09:38 | Diagnostic Imaging Report ---
EXAMINATION: Magnetic resonance imaging of the right shoulder without contrast. DATE: October 03, 2020. COMPARISON: MRI right shoulder May 24, 2009. HISTORY: 65-year-old male, right shoulder pain. TECHNIQUE: Magnetic Resonance Imaging sequences were performed of the shoulder without contrast. FINDINGS: ROTATOR CUFF, LIGAMENTS, TENDONS, AND MUSCLES: There is a full-thickness fluid-filled tear of the supraspinatus tendon with tendon retraction near the level of the glenoid. There is infraspinatus tendinopathy. The teres minor tendon is intact. There is subscapularis tendinopathy. There is a small interstitial split tear of the subscapularis tendon. There is severe fatty atrophy of the subscapularis muscle. LONG HEAD OF BICEPS: There is a split tear of the proximal long head of biceps tendon. Portions of the biceps tendon are subluxed medially outside of the bicipital groove. Biceps labral attachment does appear to be intact. GLENOHUMERAL JOINT: The humeral head is well positioned relative to the glenoid. The labrum is grossly intact. There is no identified paralabral cyst. The articular cartilage is grossly intact. There is no joint effusion. ACROMIOCLAVICULAR JOINT: There is widening of the acromio clavicular joint relating to distal clavicle resection. The coracoclavicular and coracoacromial ligaments are intact. There is no residual acromioclavicular osteophyte. BONE: There is no os acromiale. There is no Hill-Sachs deformity. There is no acute fracture, bone contusion, or evidence of osteonecrosis. BURSAE AND SOFT TISSUES: There is a very small amount of fluid in the subacromial subdeltoid bursa. Additional soft tissue assessment is unremarkable. IMPRESSION: 1. Full thickness full width tear of the supraspinatus tendon with tendon retraction near the level of the glenoid. Infraspinatus tendinopathy. Subscapularis tendinopathy and interstitial split tear of the subscapularis tendon. 2. Severe fatty atrophy of the subscapularis muscle. 3. Split tear of the proximal long head of biceps tendon with portions of the biceps tendon medially subluxed outside of the bicipital groove. The biceps labral attachment is intact. 4. Grossly intact labrum and unremarkable additional glenohumeral joint assessment. 5. Status post distal clavicle resection without residual acromioclavicular osteophyte. 6. No acute fracture, bone contusion, or evidence of osteonecrosis. Dictated by: Dictated on workstation # [id number]
== END ==
LOC: RAD 08:00
PROVIDERS: ATTEND Orthopaedic Surgery
DX: M75.121 Complete rotator cuff tear or rupture of right shoulder, not specified as traumatic (principal); S46.111A Strain of muscle, fascia and tendon of long head of biceps, right arm, initial encounter
CPT/HCPCS: 73221

== ENCOUNTER → 2020-10-03 | Outpatient (CLI) | payer OTHER, MEDICARE ==
--- NOTE | 2020-10-03 13:25 | Diagnostic Imaging Report ---
PROCEDURE: MRI lumbar spine. TECHNIQUE: Multiplanar, multisequence MRI of the lumbar spine was performed without contrast. INDICATION: Chronic low back pain and leg weakness. COMPARISON: 07/12/2008. Radiographs from 10/03/2019. FINDINGS: The last well-formed disc space will be labeled L5-S1 for the purposes of this examination. There is grade 1 anterolisthesis at L4-5 measuring 6 mm, stable since 2007. Vertebral body heights are preserved. No acute fracture is seen. There is mild multilevel disc height loss, most notable at L4-L5 and L5-S1. The conus terminates in appropriate position. Soft tissues about the lumbar spine demonstrate no acute abnormality. There are degenerative changes in the bilateral sacroiliac joints, with bridging osteophyte on the right. T12-L1: No significant disc bulge. No spinal canal or foraminal stenosis. L1-L2: No significant disc bulge. No spinal canal or foraminal stenosis. L2-L3: Diffuse disc bulge with facet arthropathy and ligamentous infolding. Mild narrowing of the lateral recesses. Mild spinal canal narrowing. No significant foraminal stenosis. L3-L4: Diffuse disc bulge with facet arthropathy and ligamentous infolding. Moderate effacement of the lateral recesses. Moderate spinal canal stenosis. Lyfvxkjo-fc-xsuxbt right and moderate left foraminal stenosis. L4-L5: Large diffuse disc bulge with complete effacement of the lateral recesses and facet arthropathy and ligamentous infolding. Severe spinal canal stenosis. Moderate bilateral foraminal stenosis. L5-S1: Diffuse disc bulge. No spinal canal stenosis. No foraminal stenosis. IMPRESSION: 1. Degenerative changes in the lumbar spine, most pronounced at L4-L5, with severe spinal canal stenosis at that level. 2. Multilevel foraminal stenosis, most severe at L3-L4 on the right. Dictated by: Dictated on workstation # [id number]
== END ==
LOC: RAD 07:42
PROVIDERS: ATTEND Family Medicine
DX: M47.816 Spondylosis without myelopathy or radiculopathy, lumbar region (principal); M51.36 Other intervertebral disc degeneration, lumbar region; M51.37 Other intervertebral disc degeneration, lumbosacral region; M48.061 Spinal stenosis, lumbar region without neurogenic claudication
CPT/HCPCS: 72148

== ENCOUNTER 2020-10-07 06:35 | Outpatient (RCR) | payer OTHER, MEDICARE ==
[2020-10-16] MEDS ORDERED: TRAM50TA3 PO (09:16)
== END 2020-11-06 | disposition home or self-care (01) ==
LOC: CR3 06:35
PROVIDERS: ATTEND Internal Medicine Cardiovascular Disease
DX: Z29.8 Encounter for other specified prophylactic measures (principal)

== ENCOUNTER 2020-10-09 05:30 | Outpatient (CLI) | payer OTHER, MEDICARE ==
[~2020-10-09] VITALS: Ht 182.9 cm; Wt 115.9 kg
== END 2020-10-09 10:03 | disposition home or self-care (01) ==
LOC: PREOP 05:30
PROVIDERS: ATTEND Orthopaedic Surgery
DX: Z01.818 Encounter for other preprocedural examination (principal)

== ENCOUNTER 2020-10-16 07:51 | Day surgery (SDC) | payer OTHER, MEDICARE ==
--- NOTE | 2020-10-08 12:38 | HISTORY AND PHYSICAL ---
DATE OF SERVICE: DATE OF ADMISSION: 10/16/2020. This will be for outpatient surgery on 10/16/2020 for right shoulder rotator cuff repair. HISTORY OF PRESENT ILLNESS: The patient is a 65-year-old right hand dominant gentleman with complaints of right shoulder pain and weakness. He has undergone treatment with injections, anti-inflammatories, rest, and home exercises without relief. He underwent an MRI which showed a large retracted rotator cuff tear with partial tearing of long head of his biceps. Due to functional impairment and failure to improve with conservative measures, the patient elected to proceed with surgical intervention. REVIEW OF SYSTEMS: No chest pain, no shortness of breath, no dysuria. PAST MEDICAL HISTORY: Hypoglycemia, alcoholism, allergic rhinitis, cellulitis, chest pain, dyspnea, erectile dysfunction, hiatal hernia, abdominal pain, dyspepsia, febrile illness, malignant hyperthermia, pneumonia, depression, hyperlipidemia, diabetes type 2, coronary artery disease, sleep apnea. PAST SURGICAL HISTORY: Right knee arthroscopy, bilateral carpal tunnel compartment syndrome, coronary catheterization, CABG, tonsillectomy, cholecystectomy. FAMILY HISTORY: Significant for stroke, ischemic heart disease. PRIMARY CARE PROVIDER: Dr. Askew. MEDICATIONS: Lasix, trazodone, Symbyax, folic acid, Abilify, Dexilant, albuterol, metformin, vitamin D, Viagra, tramadol, ketoconazole, Lipitor, Trilipix, fenofibric acid, Plavix, metoprolol, potassium. ALLERGIES: No known drug allergies. SOCIAL HISTORY: The patient denies tobacco use. Drinks alcohol socially. PHYSICAL EXAMINATION: GENERAL: The patient is well-developed, well-nourished, in no acute distress. HEENT: Normocephalic, atraumatic. Pupils are equal, round, reactive to light. Oropharynx is clear. NECK: Supple, no lymphadenopathy. LUNGS: Clear to auscultation bilaterally. HEART: Regular rate and rhythm. ABDOMEN: Soft, nontender, nondistended. EXTREMITIES: Right shoulder demonstrates weakness with abduction and external rotation. He has symmetric forward elevation, external and internal rotation with pain beyond 90 degrees. He has a positive Neer's and Hawkin sign. IMPRESSION: Right rotator cuff tear with long head of biceps partial tear. PLAN: Right shoulder arthroscopy with open rotator cuff repair, possible biceps tenotomy. The risks, benefits, options, ramifications and recovery were discussed at length with the patient. He understands and wishes to proceed. Job ID: [id number] DocumentID: [id number] Dictated Date: 10/08/2020 12:12:21 Credit Assistant Date: 10/08/2020 12:38:02 Dictated By: JELLY CHEEMA MD
[2020-10-16] VITALS (11 sets, daily range): BP systolic 140–196; BP diastolic 75–97
[~2020-10-16] VITALS: Ht 182.9 cm; Wt 115.9 kg
[~2020-10-16 07:51] MED LIST changes: +BUPIVACAINE 0.25% 30 ML (SENSORCAINE) VIAL ONE; +morphine PF (DURAMORPH) 10 MG/10 ML AMP ONE; +oxyCODONE/APAP 5/325MG (PERCOCET 5) TABLET PO PRN
[2020-10-16] MEDS ORDERED: LACTATED RINGERS 1,000 ML IV PRN (08:00)
[2020-10-16] MEDS ORDERED: ceFAZolin INJECTION 1,000 MG in WATER (STERILE) FOR INJECTION 10 ML IV ONE (08:00)
[2020-10-16] MEDS ORDERED: fentaNYL INJ 100 MCG/2 ML AMP ONE (08:07)
[2020-10-16] MEDS ORDERED: MIDAZOLAM 2 MG/2 ML (VERSED) VIAL ONE (08:07)
[2020-10-16] MEDS ORDERED: ONDANSETRON 4 MG/2 ML (SDV) Z0FRAN ONE (08:07)
[2020-10-16] MEDS ORDERED: proPOfol 200 MG/20 ML (DIPRIVAN) VIAL IV ONE (08:07)
[2020-10-16] MEDS ORDERED: ROCURONIUM 10 MG/ML 5 ML SYRINGE IV ONE (08:07)
[2020-10-16] MEDS ORDERED: LIDOCAINE PF 2% 5 ML (XYLOCAINE) VIAL ONE (08:07)
[2020-10-16] MEDS ORDERED: SUCCINYLCHOLINE INJ 100 MG/5 ML SYR/VIAL ONE (08:07)
[2020-10-16] MEDS ORDERED: SEVOFLURANE (ULTANE) 15 ML INHAL SOLN ONE ×3 (08:13→09:43)
[2020-10-16 09:08] LABS: BUN/CREATININE RATIO 19; CALCIUM 8.7 MG/DL (8.5-10.1); CARBON DIOXIDE 22 MMOL/L (21-32); CHLORIDE 107 MMOL/L (98-107); CREATININE SERUM 1.12 MG/DL (0.60-1.30); GFR ESTIMATED > 60; GLUCOSE 110 MG/DL (70-105); POTASSIUM 4.6 MMOL/L (3.6-5.0); SODIUM 140 MMOL/L (135-145)
--- NOTE | 2020-10-16 09:09 | Progress Note-Pre Operative ---
Pre-Operative Progress Note H&P Reviewed The H&P was reviewed, patient examined and no changes noted. Date Seen by Provider: Oct 16, 2020 Time Seen by Provider: 09:09 Date H&P Reviewed: Oct 16, 2020 Time H&P Reviewed: 07:11 Pre-Operative Diagnosis: right rotator cuff and SLAP tears JELLY CHEEMA MD Oct 16, 2020 09:09
--- NOTE | 2020-10-16 09:11 | Progress Note-Post Operative ---
Post-Operative Progess Note Surgeon (s)/Mapping Editor (s) Surgeon JELLY CHEEMA MD Mapping Editor: Joss Leigh Pre-Operative Diagnosis right rotator cuff and SLAP tears Post-Operative Diagnosis right rotator cuff, biceps and SLAP tears Procedure & Operative Findings Date of Procedure 10/16/20 Procedure Performed/Findings right shoulder arthroscopic biceps tenotomy, acromioplasty , labral debridement and open rotator cuff repair Anesthesia Type GETA Estimated Blood Loss Estimated blood loss (mL): minimal Specimens/Packing Specimens Removed none Packing: none JELLY CHEEMA MD Oct 16, 2020 09:11
[2020-10-16] MEDS ORDERED: TRAM50TA3 PO (09:16)
[2020-10-16] MEDS ORDERED: GLYCOPYRROLATE 0.2 MG/ML (ROBINUL) 2 ML VIAL ONE ×2 (09:27→09:34)
[2020-10-16] MEDS ORDERED: NEOSTIGMINE 3 MG/3 ML VIAL ONE (09:34)
[2020-10-16] MEDS ORDERED: MEPERIDINE (DEMEROL) INJ 50 MG/ML IVP ONE (10:00)
[2020-10-16] MEDS ORDERED: fentaNYL INJ 100 MCG/2 ML AMP IVP ONE (10:00)
[2020-10-16] MEDS ORDERED: morphine INJ 10 MG/ML 1ML (SYR OR VIAL) IVP ONE (10:00)
[2020-10-16] MEDS ORDERED: ONDANSETRON 4 MG/2 ML (SDV) Z0FRAN IVP PRN (10:00)
--- NOTE | 2020-10-16 12:15 | Anesthesia-General Post-Op ---
General Patient Condition Mental Status/LOC: Same as Preop Cardiovascular: Satisfactory (hr 45. asyptomatic) Nausea/Vomiting: Absent Respiratory: Satisfactory Pain: Controlled Complications: Absent Post Op Complications Complications None Follow Up Care/Instructions Patient Instructions None needed. Anesthesia/Patient Condition Patient Condition Patient is doing well, no complaints, stable vital signs, no apparent adverse anesthesia problems. No complications reported per nursing. MARKEL MURRAY CRNA Oct 16, 2020 12:15
--- NOTE | 2020-10-16 14:31 | OPERATIVE REPORT ---
DATE OF SERVICE: 10/16/2020 POSTOPERATIVE DIAGNOSES: 1. Right rotator cuff tear. 2. Right SLAP tear. POSTOPERATIVE DIAGNOSES: 1. Right rotator cuff tear. 2. Right SLAP tear. 3. Right shoulder labral tear. PROCEDURES: 1. Right shoulder open rotator cuff repair. 2. Right shoulder arthroscopic biceps tenotomy. 3. Right shoulder arthroscopic labral debridement. 4. Right shoulder arthroscopic acromioplasty. SURGEON: Lincoln Cheema MD SHOW HOST OR HOSTESS: Joss Leigh, who assisted throughout the procedure and closed the incisions. ANESTHESIA: General endotracheal by Joss Chen CRNA. ESTIMATED BLOOD LOSS: Minimal. DRAINS: None. COMPLICATIONS: None. POSTOPERATIVE PLAN: Sling wear and passive range of motion for 4 weeks. The patient was transferred to the recovery room awake and stable condition. STATEMENT OF MEDICAL NECESSITY: The patient is a 65-year-old right hand dominant gentleman with complaints of right shoulder pain and weakness. An MRI revealed a full-thickness retracted rotator cuff tear. He tried rest, activity modifications, home exercise program without relief. Due to functional impairment and failure to improve with conservative measures, the patient elected to proceed with surgical intervention. Examination under anesthesia revealed forward elevation of 170 degrees, external rotation of 80 degrees, internal rotation of 70 degrees. Arthroscopic findings, the rotator cuff demonstrated a full thickness tear in the supraspinatus, infraspinatus and superior aspect of subscapularis with retraction to near the glenoid rim. The biceps anchor was 90% disrupted from its attachment. There was a posterior labral flap just posterior to the biceps anchor. The glenoid demonstrated diffuse grade 1 to 2 chondral changes with no unstable chondral flaps. The humeral head demonstrated a grade 2 chondral softening centrally in a 10 x 10 area. Subacromial space demonstrated moderate bursitis with sloping of the anterolateral acromion. DESCRIPTION OF PROCEDURE: After risks and benefits of procedure were discussed and questions were answered, an informed consent was signed and placed on chart, the operative site was confirmed in the preoperative holding area initialed by the surgeon. The patient was transferred to the operating room and after adequate levels of general endotracheal anesthetic were obtained, a timeout was called, confirming the operative site. Examination under anesthesia was performed with the above findings noted. The right shoulder and upper extremity were prepped and draped in the usual sterile fashion. Shoulder joint was injected with 20 mL of fluid as was the subacromial space. Standard posterior portal was placed under direct visualization. Anterior portal was created in between biceps, subscapularis and glenoid. The biceps anchor was released, the stump was debrided with a shaver. The posterior labral flap was debrided with a shaver as well. The scope was then redirected into the subacromial space. A bursectomy was performed. Acromial planed to a flat type 1 acromion. The lateral portal was then extended. The deltoid was split in line with its fibers leaving attached the acromion for later reapproximation. The posterior leaf of the rotator cuff was able to be mobilized superiorly and a single corkscrew anchor was placed. Modified Josiah-Damon repair was performed with an excellent repair on the posterior aspect. Subscapularis could not be mobilized superiorly. This left the anterior aspect somewhat uncovered of the humeral head. The wound was copiously irrigated. The deltoid was repaired in krlh-yi-godd fashion using #2 FiberWire. The wound was further irrigated. A 3-0 Vicryl was used to reapproximate subcutaneous tissue and skin was closed with 4-0 nylon in a running alternating horizontal mattress fashion. The portal sites were closed with 4-0 nylon in simple interrupted fashion. Shoulder joint was injected with Duramorph. The incisions were infiltrated with plain Marcaine. A soft dressing and sling were applied and the patient was transferred to the recovery room awake and in stable condition. Job ID: [id number] DocumentID: [id number] Dictated Date: 10/16/2020 10:26:57 [employer] Drm Consultant Date: 10/16/2020 14:30:25 Dictated By: LINCOLN CHEEMA MD
== END 2020-10-16 12:32 | disposition home or self-care (01) ==
LOC: SDC 07:51 → EDSTATUS 09:45 → SDC 12:32
PROVIDERS: ATTEND Orthopaedic Surgery
DX: M75.101 Unspecified rotator cuff tear or rupture of right shoulder, not specified as traumatic (principal); S43.431A Superior glenoid labrum lesion of right shoulder, initial encounter; I10 Essential (primary) hypertension; I25.10 Atherosclerotic heart disease of native coronary artery without angina pectoris; I48.91 Unspecified atrial fibrillation; G47.33 Obstructive sleep apnea (adult) (pediatric); M19.90 Unspecified osteoarthritis, unspecified site; K21.9 Gastro-esophageal reflux disease without esophagitis; E11.9 Type 2 diabetes mellitus without complications; J30.9 Allergic rhinitis, unspecified; F32.9 Major depressive disorder, single episode, unspecified; E78.5 Hyperlipidemia, unspecified; G47.30 Sleep apnea, unspecified; Z79.51 Long term (current) use of inhaled steroids; Z79.899 Other long term (current) drug therapy; Z79.84 Long term (current) use of oral hypoglycemic drugs; Z88.8 Allergy status to other drugs, medicaments and biological substances; Z90.49 Acquired absence of other specified parts of digestive tract; Z82.3 Family history of stroke
CPT/HCPCS: 23412; 29822; 29826; 80048; 82962; 87081; C1713; 36415

== ENCOUNTER 2020-12-18 08:21 | Outpatient (RCR) | payer OTHER, MEDICARE ==
[~2020-12-18 08:21] MED LIST changes: -BUPIVACAINE 0.25% 30 ML (SENSORCAINE) VIAL ONE; -MULT1TAB65 PO; +MULT1TAB66 PO; +TRAM50TA3 PO; -morphine PF (DURAMORPH) 10 MG/10 ML AMP ONE; -oxyCODONE/APAP 5/325MG (PERCOCET 5) TABLET PO PRN
== END 2021-01-07 08:30 | disposition home or self-care (01) ==
PROVIDERS: ATTEND Orthopaedic Surgery
DX: M75.121 Complete rotator cuff tear or rupture of right shoulder, not specified as traumatic (principal)

== ENCOUNTER → 2021-03-04 | Outpatient (CLI) | payer OTHER, MEDICARE ==
[2021-03-04 07:26] LABS: BASOPHILS % (AUTO) 1 % (0-10); EOSINOPHILS # (AUTO) 0.1 10^3/uL (0.0-0.3); EOSINOPHILS % (AUTO) 2 % (0-10); HEMATOCRIT 46 % (40-54); HEMOGLOBIN 14.6 g/dL (13.3-17.7); LYMPHOCYTES # (AUTO) 1.1 10^3/uL (1.0-4.0); LYMPHOCYTES % (AUTO) 18 % (12-44); MEAN CORPUSCULAR HEMOGLOBIN 28 pg (25-34); MEAN CORPUSCULAR HGB CONC 32 g/dL (32-36); MEAN CORPUSCULAR VOLUME 88 fL (80-99); MEAN PLATELET VOLUME 9.6 fL (9.0-12.2); MONOCYTES # (AUTO) 0.4 10^3/uL (0.0-1.0); MONOCYTES % (AUTO) 7 % (0-12); NEUTROPHILS # (AUTO) 4.4 10^3/uL (1.8-7.8); NEUTROPHILS % (AUTO) 73 % (42-75); PLATELET COUNT 149 10^3/uL (130-400)
[2021-03-04 07:41] LABS: BILIRUBIN,TOTAL 0.5 MG/DL (0.1-1.0); CALCIUM 9.1 MG/DL (8.5-10.1); CREATININE SERUM 1.08 MG/DL (0.60-1.30); POTASSIUM 4.1 MMOL/L (3.6-5.0); TOTAL PROTEIN 6.9 GM/DL (6.4-8.2)
[2021-03-04 08:02] LABS: FREE T4 (FREE THYROXINE) 0.89 NG/DL (0.70-1.48)
== END ==
LOC: LAB 06:57
PROVIDERS: ATTEND Family Medicine
DX: I10 Essential (primary) hypertension (principal); E11.8 Type 2 diabetes mellitus with unspecified complications
CPT/HCPCS: 36415; 80053; 80061; 82043; 83036; 84439; 84443; 85025

== ENCOUNTER → 2021-04-03 | Outpatient (CLI) | payer OTHER, MEDICARE | LOC: CARD 09:00 | PROVIDERS: ATTEND Internal Medicine Cardiovascular Disease | DX: I08.2 Rheumatic disorders of both aortic and tricuspid valves (principal) | CPT/HCPCS: 93306 ==

== ENCOUNTER 2021-05-08 19:13 | Emergency (ER) | payer OTHER, MEDICARE ==
[~2021-05-08] VITALS: Ht 72 cm; Wt 117.9 kg
--- NOTE | 2021-05-08 19:31 | ED Chest Pain ---
General Stated Complaint: CHEST PAIN, STROKE SYMPTOMS Source: patient, family Exam Limitations: no limitations History of Present Illness Date Seen by Provider: May 08, 2021 Time Seen by Provider: 19:20 Initial Comments Patient is a 65-year-old male who presents to the emergency department today with a chief complaint of left upper sternal chest discomfort that has been constant for weeks and some reported right facial droop onset this evening noticed by his daughter. Patient currently rating his pain at a "7". He states it is constant and he has had it really ever since he had a internal pickler helper placed a few months after his bypass surgery a couple of years ago. He is a patient of Dr. Cr. Dr. Cr is aware of the discomfort. Patient states he has had no real shortness of breath or nausea. No recent illnesses such as fevers, cough or congestion. Further history from the daughter is that they were concerned that he might have been drinking some alcohol this evening, his wanted "a breathalyzer" done. Patient states that he has not been drinking recently. He denies headache. No abdominal pain. He has had a little bit of swelling in his legs, left greater than right. He just generally states that he does not feel "good". No problems currently with bowel or bladder although he states he takes Lasix every other day and on the days he takes his Lasix he is urinating "all the time". Patient states he has had prior stroke again post bypass a couple of years ago that affected his right side. Has residual "numbness" to the right leg. No real distress at the time of my initial evaluation. All other review of systems reviewed and negative except as stated. Timing/Duration: 4-6 hours, other (2 weeks) Severity/Quality: moderate Location: other (Left upper chest) Radiation: no radiation Activities at Onset: none ASA po PLANT ASSOCIATE: No NTG SL PLANT ASSOCIATE: No Associated Symptoms: fatigue Allergies and Home Medications Allergies Coded Allergies: amiodarone (Verified Allergy, Severe, Anaphylaxis, 06/12/20) Patient Home Medication List Home Medication List Reviewed: Yes Acetaminophen (Tylenol Extra Strength) 500 Mg Tablet, 1,000 MG PO BID, (Reported) Entered as Reported by: SHERYL PIÑA on 03/22/19 7436 Allopurinol (Allopurinol) 100 Mg Tablet, 100 MG PO BID, (Reported) Entered as Reported by: SHERYL PIÑA on 03/22/19 1346 Amlodipine Besylate (Norvasc) 5 Mg Tablet, 5 MG PO DAILY, (Reported) Entered as Reported by: SHERYL PIÑA on 03/22/19 1354 Aripiprazole (Abilify) 2 Mg Tablet, 2 MG PO DAILY, (Reported) Entered as Reported by: SHERYL PIÑA on 03/22/19 134 Aspirin (Aspir 81) 81 Mg Tablet., 81 MG PO DAILY, (Reported) Entered as Reported by: SHERYL PIÑA on 03/22/19 134 Atorvastatin Calcium (Atorvastatin Calcium) 40 Mg Tablet, 40 MG PO DAILY, (Reported) Entered as Reported by: SHERYL PIÑA on 03/22/19 134 Cholecalciferol (Vitamin D3) (Vitamin D3) 25 Mcg Capsule, 25 MCG PO DAILY, (Reported) Entered as Reported by: SHERYL PIÑA on 06/10/20 0953 Clonidine HCl (Clonidine HCl ER) 0.1 Mg Tab.er.12h, 0.1 MG PO DAILY, (Reported) Entered as Reported by: SHERYL PIÑA on 06/10/20 0953 Cyanocobalamin (Vitamin B-12) (B-12) 1,000 Mcg Tablet, 1,000 MCG PO DAILY, (Reported) Entered as Reported by: SHERYL PIÑA on 03/22/19 1354 Dexlansoprazole (Dexilant) 60 Mg Ricardo.bp, 60 MG PO BID, (Reported) Entered as Reported by: SHERYL PIÑA on 03/22/19 1354 Fluoxetine HCl (Fluoxetine HCl) 40 Mg Capsule, 40 MG PO DAILY, (Reported) Entered as Reported by: SHERYL PIÑA on 03/22/19 1346 Furosemide (Furosemide) 40 Mg Tablet, 40 MG PO Q48H, (Reported) Entered as Reported by: SHERYL PIÑA on 03/22/19 1346 Metoprolol Tartrate (Metoprolol Tartrate) 100 Mg Tablet, 100 MG PO BID, (Reported) Entered as Reported by: SHERYL PIÑA on 03/22/19 1346 Potassium Chloride (Potassium Chloride) 20 Meq Tab.er.prt, 20 MEQ PO Q48H, (Reported) Entered as Reported by: SHERYL PIÑA on 03/22/19 1346 Sennosides/Docusate Sodium (Senna S Tablet) 1 Each Tablet, 1 EACH PO DAILY, (Reported) Entered as Reported by: SHERYL PIÑA on 03/22/19 1346 Sucralfate (Carafate) 1 Gm Tablet, 1 GM PO BID, (Reported) Entered as Reported by: ALEKSANDER GODDARD on 06/28/19 1054 Sulfamethoxazole/Trimethoprim (Bactrim 400-80 mg Tablet) 1 Each Tablet, 0.5 EACH PO HS, (Reported) Entered as Reported by: SHERYL PIÑA on 06/10/20 0953 Tramadol HCl (Tramadol HCl) 50 Mg Tablet, 50 MG PO DAILY, (Reported) Entered as Reported by: SHERYL PIÑA on 03/22/19 1354 Tramadol HCl (Tramadol HCl) 50 Mg Tablet, 100 MG PO HS, (Reported) Entered as Reported by: MAYI PABLO on 10/16/20 0916 Trazodone HCl (Trazodone HCl) 50 Mg Tablet, 50 MG PO HS, (Reported) Entered as Reported by: ALEKSANDER GODDARD on 06/28/19 1054 Ubidecarenone (Co Q10) 200 Mg Capsule, 200 MG PO DAILY, (Reported) Entered as Reported by: SHERYL PIÑA on 03/22/19 1354 Review of Systems Review of Systems Constitutional: see HPI EENTM: No Symptoms Reported Respiratory: No Symptoms Reported Cardiovascular: Chest Pain Gastrointestinal: No Symptoms Reported Genitourinary: Frequency (On days he takes his Lasix) Musculoskeletal: no symptoms reported Skin: no symptoms reported Psychiatric/Neurological: Depressed All Other Systems Reviewed Negative Unless Noted: Yes Past Yfqximi-Wrrqbm-Tffumq Hx Immunizations Up To Date Tetanus Booster (TDap): Unknown PED Vaccines UTD: Yes Seasonal Allergies Seasonal Allergies: Yes Past Medical History Surgeries: Yes (CARPEL TUNNEL SARAHI,ANTERIOR COMPARTMENT SYNDROM R LEG, BILAT knee scope, ) CABG, Gallbladder, Orthopedic, Tonsillectomy Respiratory: Yes (SLEEP APNEA-USES CPAP) Sleep Apnea Currently Using CPAP: Yes Currently Using BIPAP: No Cardiac: Yes (2 STENTS-CABG x 4) Atrial Fibrillation, Chronic Edema/Swelling, Coronary Artery Disease, High Cholesterol, Hypertension Neurological: Yes ( 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) Seizure Disorder Reproductive Disorders: No Sexually Transmitted Disease: No HIV/AIDS: No Genitourinary: Yes (renal issues after CABG) Benign Prostatic Hyperpl Gastrointestinal: Yes (UMB HERNIA REPAIR) Gastroesophageal Reflux, Larios's Esophagus, Hiatal Hernia Musculoskeletal: Yes Degenerate Disk Disease, Arthritis, Chronic Back Pain, Gout Endocrine: Yes Diabetes, Non-Insulin dep HEENT: No (cataracts removed) Loss of Vision: Denies Hearing Impairment: Denies Cancer: No Psychosocial: Yes Depression Integumentary: Yes (hx CELLULITIS LEFT LOWER EXTREMITY) Blood Disorders: No Adverse Reaction/Blood Tranf: Yes (fever-lab stated he had an adverse reaction ) Family Medical History Cardiovascular disease 19 FATHER 19 MOTHER Diabetes mellitus 19 FATHER 19 MOTHER G8 BROTHER Hypertension 19 FATHER Physical Exam Vital Signs Vital Signs - First Documented 05/08/21 19:20 Temp 36.0 Pulse 69 Resp 19 B/P (MAP) 225/107 (146) Pulse Ox 96 O2 Delivery Room Air Capillary Refill : Height, Weight, BMI Height: 6'0.00" Weight: 247lbs. 0.0oz. 112.919718mw; 34.64 BMI Method:Stated General Appearance: No Apparent Distress, WD/WN HEENT: PERRL/EOMI Neck: Normal Inspection Respiratory: Lungs Clear, Normal Breath Sounds, No Accessory Muscle Use, No Respiratory Distress, Other (No tenderness over the implanted wood heel fitter machine in the left upper chest wall, no overlying erythema, swelling) Cardiovascular: Regular Rate, Rhythm, Normal Peripheral Pulses, Other (Trace edema bilateral lower extremities) Gastrointestinal: Non Tender, Soft Extremity: Normal Inspection, Non Tender, No Calf Tenderness, Pedal Edema (Trace) Neurologic/Psychiatric: Alert, Oriented x3, No Motor/Sensory Deficits, Depressed Affect Skin: Normal Color, Warm/Dry Progress/Results/Core Measures Results/Orders Lab Results Laboratory Tests Test 05/08/21 19:25 Range/Units White Blood Count 10.7 4.3-11.0 10^3/uL Red Blood Count 5.52 4.30-5.52 10^6/uL Hemoglobin 15.8 13.3-17.7 g/dL Hematocrit 48 40-54 % Mean Corpuscular Volume 86 80-99 fL Mean Corpuscular Hemoglobin 29 25-34 pg Mean Corpuscular Hemoglobin Concent 33 32-36 g/dL Red Cell Distribution Width 14.2 10.0-14.5 % Platelet Count 201 130-400 10^3/uL Mean Platelet Volume 9.6 9.0-12.2 fL Immature Granulocyte % (Auto) 0 % Neutrophils (%) (Auto) 65 42-75 % Lymphocytes (%) (Auto) 25 12-44 % Monocytes (%) (Auto) 7 0-12 % Eosinophils (%) (Auto) 2 0-10 % Basophils (%) (Auto) 1 0-10 % Neutrophils # (Auto) 7.0 1.8-7.8 10^3/uL Lymphocytes # (Auto) 2.7 1.0-4.0 10^3/uL Monocytes # (Auto) 0.7 0.0-1.0 10^3/uL Eosinophils # (Auto) 0.2 0.0-0.3 10^3/uL Basophils # (Auto) 0.1 0.0-0.1 10^3/uL Immature Granulocyte # (Auto) 0.0 0.0-0.1 10^3/uL Sodium Level 138 135-145 MMOL/L Potassium Level 4.3 3.6-5.0 MMOL/L Chloride Level 103 98-107 MMOL/L Carbon Dioxide Level 20 L 21-32 MMOL/L Anion Gap 15 H 5-14 MMOL/L Blood Urea Nitrogen 12 7-18 MG/DL Creatinine 1.04 0.60-1.30 MG/DL Estimat Glomerular Filtration Rate 71 BUN/Creatinine Ratio 12 Glucose Level 98 70-105 MG/DL Calcium Level 9.7 8.5-10.1 MG/DL Total Creatine Kinase 131 30-200 U/L Troponin I < 0.028 <0.028 NG/ML Serum Alcohol 103 H <10 MG/DL My Orders Orders - AN REED MD Ed Iv/Invasive Line Start (05/08/21 19:34) Cbc With Automated Diff (05/08/21 19:34) Basic Metabolic Panel (05/08/21 19:34) Troponin I (05/08/21 19:34) Creatine Kinase (05/08/21 19:34) Chest 1 View, Ap/Pa Only (05/08/21 19:34) Ekg Tracing (05/08/21 19:34) Alcohol (05/08/21 20:07) Vital Signs/I&O 05/08/21 05/08/21 19:20 19:45 Temp 36.0 Pulse 69 56 Resp 19 16 B/P (MAP) 225/107 (146) 159/84 Pulse Ox 96 96 O2 Delivery Room Air Room Air Progress Progress Note : Time: 08:57 Progress Note I have reviewed the patient's labs and ekg and cxr; everything looks good. He has had ongoing, chronic chest pain - I do not believe that he has any concerning findings for ACS. His etoh was actually a little elevated; he insists that he hasnt had any alcohol today - other than a little mouthwash at 11am this morning. He did ask me to not divulge this to his daughter who is here with him, his results and I did not. I did let her know, from a cardiac standpoint he is cleared. VS are improved. I encouraged him to follow up with Dr Cr as well as his PCP and counsellor through [facility]. I advised him he could likely find AA meetings that are virtual, all he needs to do is call to find out which ones are virtual locally. All questions are sought and answered. Patient is stable for discharge. Initial ECG Impression Date: May 08, 2021 Initial ECG Impression Time: 19:18 Initial ECG Rate: 68 Initial ECG Rhythm: Normal Sinus Initial ECG Intervals: QT Initial ECG Intervals MI 180 QRS 118 QTc 508 Initial ECG Impression: Normal Diagnostic Imaging Diagonstic Imaging: Xray Plain Films/CT/US/NM/MRI: chest Comments NAME: DWIGHT MAC [facility] REC#: [id number] PT STATUS: REG ER : 1955 PHYSICIAN: AN REED MD ADMIT DATE: 05/08/21/ER Draft Date of Exam:05/08/21 CHEST 1 VIEW, AP/PA ONLY Portable erect AP chest at 746 hours. INDICATION: Chest pain. FINDINGS: The cardiomegaly noted on the prior exam of 07/02/2018 is again evident and no different. In the interval since the previous study, the patient has undergone a cardiac surgical procedure and there are now sternal wires and surgical clips evident. A loop recorder device is also seen. The central pulmonary vascularity is somewhat prominent but no different than on the prior exam. There is no evidence for failure, pneumonia or for pleural effusion. The mediastinum is not widened. The osseous structures are intact. IMPRESSION: There has been interval cardiac surgical procedure. There is no acute cardiopulmonary abnormality identified. Dictated on workstation # [id number] Dict: 05/08/212001 Trans: 05/08/212004 [id number] Interpreted by: YOLI KEMP MD Electronically signed by: Departure Impression Primary Impression: Chest pain Qualified Codes: R07.9 - Chest pain, unspecified Disposition: HOME, SELF-CARE Condition: Stable Departure-Patient Inst. Decision time for Depature: 21:02 Referrals: JEROME GEORGE MD (PCP) Primary Care Physician YISSEL CR MD [facility] Patient Instructions: Chest Pain That Is Not Caused by the Heart (DC) Add. Discharge Instructions: Please drink plenty of fluids to stay well hydrated. Continue to take your daily medications as prescribed. Come back to the Emergency Department if you have any worsening chest pain, especially associated with shortness of breath, nausea, sweating, radiation of pain - or any other emergent concerning symptoms. Please follow up with Dr George and Dr. Cr. Copy Copies To 1: JEROME GEORGE MD Copies To 2: YISSEL CR MD [facility] AN REED MD May 08, 2021 19:30
[2021-05-08 19:49] LABS: BASOPHILS # (AUTO) 0.1 10^3/uL (0.0-0.1); BASOPHILS % (AUTO) 1 % (0-10); EOSINOPHILS # (AUTO) 0.2 10^3/uL (0.0-0.3); EOSINOPHILS % (AUTO) 2 % (0-10); HEMATOCRIT 48 % (40-54); HEMOGLOBIN 15.8 g/dL (13.3-17.7); LYMPHOCYTES # (AUTO) 2.7 10^3/uL (1.0-4.0); LYMPHOCYTES % (AUTO) 25 % (12-44); MEAN CORPUSCULAR HEMOGLOBIN 29 pg (25-34); MEAN CORPUSCULAR HGB CONC 33 g/dL (32-36); MEAN CORPUSCULAR VOLUME 86 fL (80-99); MEAN PLATELET VOLUME 9.6 fL (9.0-12.2); MONOCYTES # (AUTO) 0.7 10^3/uL (0.0-1.0); MONOCYTES % (AUTO) 7 % (0-12); NEUTROPHILS % (AUTO) 65 % (42-75); PLATELET COUNT 201 10^3/uL (130-400); WHITE BLOOD COUNT 10.7 10^3/uL (4.3-11.0)
--- NOTE | 2021-05-08 20:05 | Diagnostic Imaging Report ---
Portable erect AP chest at 746 hours. INDICATION: Chest pain. FINDINGS: The cardiomegaly noted on the prior exam of 07/02/2018 is again evident and no different. In the interval since the previous study, the patient has undergone a cardiac surgical procedure and there are now sternal wires and surgical clips evident. A loop recorder device is also seen. The central pulmonary vascularity is somewhat prominent but no different than on the prior exam. There is no evidence for failure, pneumonia or for pleural effusion. The mediastinum is not widened. The osseous structures are intact. IMPRESSION: There has been interval cardiac surgical procedure. There is no acute cardiopulmonary abnormality identified. Dictated by: Dictated on workstation # [id number]
[2021-05-08 20:06] LABS: BUN/CREATININE RATIO 12; CALCIUM 9.7 MG/DL (8.5-10.1); CARBON DIOXIDE 20 MMOL/L (21-32); CHLORIDE 103 MMOL/L (98-107); CREATINE KINASE 131 U/L (30-200); CREATININE SERUM 1.04 MG/DL (0.60-1.30); GFR ESTIMATED 71; GLUCOSE 98 MG/DL (70-105); POTASSIUM 4.3 MMOL/L (3.6-5.0); SODIUM 138 MMOL/L (135-145)
[2021-05-08 21:19] VITALS: BP 154/70
== END 2021-05-08 21:20 | disposition home or self-care (01) ==
LOC: EDUNIT# 19:13 → ER 19:15
DX: R07.9 Chest pain, unspecified (principal); G47.30 Sleep apnea, unspecified; I10 Essential (primary) hypertension; I25.10 Atherosclerotic heart disease of native coronary artery without angina pectoris; E78.00 Pure hypercholesterolemia, unspecified; K21.9 Gastro-esophageal reflux disease without esophagitis; M10.9 Gout, unspecified; E11.9 Type 2 diabetes mellitus without complications; F32.9 Major depressive disorder, single episode, unspecified; Z79.899 Other long term (current) drug therapy; Z79.82 Long term (current) use of aspirin
CPT/HCPCS: 71045; 80048; 82550; 84484; 85025; 93005; 99284; G0480; 36415; 80320

== ENCOUNTER 2021-06-11 08:56 | Outpatient (RCR) | payer OTHER, MEDICARE | END 2021-06-12 | disposition home or self-care (01) | PROVIDERS: ATTEND Family Medicine | DX: M54.16 Radiculopathy, lumbar region (principal); I10 Essential (primary) hypertension; E11.9 Type 2 diabetes mellitus without complications ==

== ENCOUNTER 2021-06-27 08:03 | Outpatient (RCR) | payer OTHER, MEDICARE ==
[~2021-06-27 08:03] MED LIST changes: -AMIO200T6 PO; +AMIO200T65 PO; +POTA-169 PO; +POTA-179 PO; -POTA20TA8 PO
== END 2021-07-25 | disposition home or self-care (01) ==
PROVIDERS: ATTEND Family Medicine
DX: M54.50 Low back pain, unspecified (principal)

== ENCOUNTER → 2021-09-22 | Outpatient (CLI) | payer OTHER, MEDICARE ==
--- NOTE | 2021-09-22 10:51 | Diagnostic Imaging Report ---
PROCEDURE: MRI right joint upper extremity without contrast. TECHNIQUE: Multiplanar, multisequence non contrast-enhanced MRI of the right upper extremity was accomplished. INDICATION: Fall, right shoulder pain COMPARISON: 10/03/2020 FINDINGS: No acute fracture is seen in the right shoulder. There is a suture anchor in the humeral head. There is no significant joint effusion. There are foci of susceptibility artifact from prior surgery. There is a full-thickness tear of the supraspinatus tendon and the anterior fibers of the infraspinatus tendon, measuring up to 3.5 cm in width, with medial retraction to the glenohumeral joint, about 3.5 cm. There is additional tendinosis with medial intra-articular extension of a partial tear into the infraspinatus tendon. The subscapularis tendon demonstrates marked thinning, which may be due to high-grade partial-thickness. There is marked atrophy of the subscapularis muscle and moderate of the supraspinatus muscle. The long head of the biceps tendon demonstrates marked thinning and is not well seen in the intra-articular portion. This is thought to be due to a high-grade partial tear. The glenoid labrum is suboptimally evaluated in the absence of intra-articular contrast but there does appear to be some degeneration. No paralabral cyst is seen. The acromion has a curved undersurface and there is mild subacromial spurring. There are moderate degenerative changes in the acromioclavicular joint. The coracoclavicular and coracoacromial ligaments appear to be intact. IMPRESSION: 1. Large full-thickness tear involving the supraspinatus and infraspinatus tendons. High-grade partial-thickness tearing of the subscapularis tendon. Marked muscular atrophy of the subscapularis and moderate of the supraspinatus. 2. High-grade partial tear of the intra-articular long head of the biceps tendon. 3. Moderate degenerative changes in the acromioclavicular joint with subacromial spurring. Dictated by: Dictated on workstation # [id number]
== END ==
LOC: RAD 08:00
PROVIDERS: ATTEND Nurse Practitioner
DX: M75.121 Complete rotator cuff tear or rupture of right shoulder, not specified as traumatic (principal); S46.111A Strain of muscle, fascia and tendon of long head of biceps, right arm, initial encounter; M19.011 Primary osteoarthritis, right shoulder; W19.XXXA Unspecified fall, initial encounter
CPT/HCPCS: 73221

== ENCOUNTER 2021-09-23 14:00 | Day surgery (SDC) | payer OTHER, MEDICARE ==
[~2021-09-23] VITALS: Ht 182.9 cm; Wt 122.0 kg
[2021-09-23 13:14] VITALS: BP 147/76
[~2021-09-23 14:00] MED LIST changes: +LIDOCAINE 1% INJ 50 ML (XYLOCAINE) VIAL ONE
--- NOTE | 2021-10-13 21:29 | OPERATIVE REPORT ---
DATE OF SERVICE: 09/23/2021 INDICATIONS: The patient is a 66-year-old gentleman who has an implantable loop recorder in place that he has been found to be quite bothersome and has requested that it be removed. DESCRIPTION OF PROCEDURE: [facility] The left prepectoral area, site of his device implantation was prepared and draped in the usual sterile fashion. Sharp and blunt dissection was used to remove the device from the pocket. A tiny incision was employed. We were able to remove the device without any difficulty. Dermabond and Steri-Strips were used to close the incision. He tolerated the procedure well. Job ID: [id number] DocumentID: [id number] Dictated Date: 10/13/2021 16:10:25 Oil Tank Car Cleaner Date: 10/13/2021 21:28:24 Dictated By: YISSEL SHOEMAKER MD, MA, FACP, FACC,
== END 2021-09-23 14:05 | disposition home or self-care (01) ==
LOC: CATH 14:00
PROVIDERS: ATTEND Internal Medicine Cardiovascular Disease
DX: I25.10 Atherosclerotic heart disease of native coronary artery without angina pectoris (principal); I48.0 Paroxysmal atrial fibrillation; I65.23 Occlusion and stenosis of bilateral carotid arteries; G83.9 Paralytic syndrome, unspecified; D64.9 Anemia, unspecified; E03.9 Hypothyroidism, unspecified; M79.89 Other specified soft tissue disorders; E11.22 Type 2 diabetes mellitus with diabetic chronic kidney disease; I12.9 Hypertensive chronic kidney disease with stage 1 through stage 4 chronic kidney disease, or unspecified chronic kidney disease; N18.30 Chronic kidney disease, stage 3 unspecified; G47.33 Obstructive sleep apnea (adult) (pediatric); Q21.1 Atrial septal defect; G89.29 Other chronic pain; M54.9 Dorsalgia, unspecified; K22.70 Barrett's esophagus without dysplasia; E78.2 Mixed hyperlipidemia; E66.9 Obesity, unspecified; Z68.36 Body mass index [BMI] 36.0-36.9, adult; Z95.818 Presence of other cardiac implants and grafts; Z95.1 Presence of aortocoronary bypass graft; Z87.891 Personal history of nicotine dependence; Z79.899 Other long term (current) drug therapy; Z79.82 Long term (current) use of aspirin; Z79.891 Long term (current) use of opiate analgesic
CPT/HCPCS: 33286

== ENCOUNTER 2021-10-08 05:34 | Outpatient (CLI) | payer OTHER, MEDICARE ==
[~2021-10-08] VITALS: Ht 182.9 cm; Wt 122.7 kg
[~2021-10-08 05:34] MED LIST changes: -LIDOCAINE 1% INJ 50 ML (XYLOCAINE) VIAL ONE
[2021-10-08] MEDS ORDERED: MV-M1TAB20 PO (13:41)
[2021-10-08] MEDS ORDERED: DESV50TA PO (13:41)
[2021-10-08] MEDS ORDERED: BREX1TAB PO (13:41)
== END 2021-10-08 13:42 | disposition home or self-care (01) ==
LOC: PREOP 05:34
PROVIDERS: ATTEND Orthopaedic Surgery
DX: Z01.818 Encounter for other preprocedural examination (principal)

== ENCOUNTER 2021-10-15 07:40 | Day surgery (SDC) | payer OTHER, MEDICARE ==
--- NOTE | 2021-10-07 16:25 | HISTORY AND PHYSICAL ---
DATE OF SERVICE: ADMISSION HISTORY AND PHYSICAL This will be for outpatient surgery on 10/15/2021 for right rotator cuff repair. HISTORY OF PRESENT ILLNESS: The patient is a 66-year-old right hand dominant gentleman who previously underwent a right rotator cuff repair, doing well until he fell on the ice. An MRI was ultimately obtained, which revealed a large retracted 3 tendon tear. He has had difficulty with sleep and pain with overhead activities and because of this, elected to proceed with surgical intervention. REVIEW OF SYSTEMS: No chest pain, no shortness of breath, no dysuria. PAST MEDICAL HISTORY: Hypoglycemia, allergic rhinitis, cellulitis, chest pain, dyspnea, hiatal hernia, pneumonia, depression, edema, fatigue, reflux, hyperlipidemia, hypertension, diabetes, coronary artery disease. PAST SURGICAL HISTORY: Right knee arthroscopy, bilateral carpal tunnels, right leg compartment syndrome, coronary catheterization, coronary artery bypass, tonsillectomy, cholecystectomy, right rotator cuff repair. FAMILY HISTORY: Significant for stroke. PRIMARY CARE PROVIDER: Dr. Askew. MEDICATIONS: Rexulti, allopurinol, Tylenol, Norvasc, metoprolol, Lasix, enteric-coated aspirin, vitamin D, Lipitor, tramadol, CoQ, potassium, clonidine, Dexilant, trazodone. ALLERGIES: AMIODARONE. SOCIAL HISTORY: The patient drinks alcohol socially. Denies tobacco use. PHYSICAL EXAMINATION: GENERAL: The patient is well-developed, well-nourished, in no acute distress. HEENT: Normocephalic, atraumatic. Pupils are equal, round, reactive to light. Oropharynx is clear. NECK: Supple, no lymphadenopathy. LUNGS: Clear to auscultation bilaterally. HEART: Regular rate and rhythm. ABDOMEN: Soft, nontender, nondistended. EXTREMITIES: Right shoulder demonstrates weakness with abduction and external rotation. Passive forward elevation of 160 degrees. Positive Neer's, positive Hawkin sign, positive drop arm sign. IMPRESSION: Right large rotator cuff tear. PLAN: Right shoulder arthroscopy with open rotator cuff repair. The risks, benefits, options, ramifications and recovery were discussed at length with the patient. He understands and wishes to proceed. Job ID: [id number] DocumentID: [id number] Dictated Date: 10/07/2021 15:42:56 Adult Basic Studies Teacher Date: 10/07/2021 16:24:41 Dictated By: JELLY CHEEMA MD
[2021-10-15] VITALS (12 sets, daily range): BP systolic 165–192; BP diastolic 94–98
[~2021-10-15] VITALS: Ht 182 cm; Wt 122.7 kg
[~2021-10-15 07:40] MED LIST changes: +BREX1TAB PO; +DESV50TA PO; +MV-M1TAB20 PO
[2021-10-15] MEDS ORDERED: LACTATED RINGERS 1,000 ML IV PRN (08:00)
[2021-10-15] MEDS ORDERED: ceFAZolin INJECTION 1,000 MG VIAL IV ONE (08:00)
[2021-10-15] MEDS ORDERED: morphine PF (DURAMORPH) 10 MG/10 ML AMP ONE (08:14)
[2021-10-15] MEDS ORDERED: BUPIVACAINE 0.25% 30 ML (SENSORCAINE) VIAL ONE (08:14)
[2021-10-15] MEDS ORDERED: ROCURONIUM 10 MG/ML 5 ML SYRINGE IV ONE (08:15)
[2021-10-15] MEDS ORDERED: ONDANSETRON 4 MG/2 ML (SDV) Z0FRAN ONE (08:15)
[2021-10-15] MEDS ORDERED: MIDAZOLAM 2 MG/2 ML (VERSED) VIAL ONE (08:15)
[2021-10-15] MEDS ORDERED: fentaNYL INJ 100 MCG/2 ML AMP ONE (08:15)
[2021-10-15] MEDS ORDERED: SEVOFLURANE (ULTANE) 15 ML INHAL SOLN ONE ×2 (08:15→10:21)
[2021-10-15] MEDS ORDERED: proPOfol 200 MG/20 ML (DIPRIVAN) VIAL IV ONE (08:15)
[2021-10-15] MEDS ORDERED: LIDOCAINE PF 2% 5 ML (XYLOCAINE) VIAL ONE (08:15)
--- NOTE | 2021-10-15 09:18 | Progress Note-Pre Operative ---
Pre-Operative Progress Note H&P Reviewed The H&P was reviewed, patient examined and no changes noted. Date Seen by Provider: Oct 15, 2021 Time Seen by Provider: 09:08 Date H&P Reviewed: Oct 15, 2021 Time H&P Reviewed: 07:11 Pre-Operative Diagnosis: right rotator cuff tear JELLY CHEEMA MD Oct 15, 2021 09:18
--- NOTE | 2021-10-15 09:19 | Progress Note-Post Operative ---
Post-Operative Progess Note Surgeon (s)/Prevention Coordinator (s) Surgeon JELLY CHEEMA MD Prevention Coordinator: none Pre-Operative Diagnosis right rotator cuff tear Post-Operative Diagnosis right rotator cuff tear right shoulder labral tear Procedure & Operative Findings Date of Procedure 10/15/21 Procedure Performed/Findings right shoulder arthroscopic labral debridement and open rotator cuff repair Anesthesia Type GETA Estimated Blood Loss Estimated blood loss (mL): minimal Specimens/Packing Specimens Removed none Packing: none JELLY CHEEMA MD Oct 15, 2021 09:19
[2021-10-15] MEDS ORDERED: SUCCINYLCHOLINE INJ 20 MG/1 ML 10 ML VIAL ONE (09:32)
[2021-10-15] MEDS ORDERED: ATROPINE INJ 0.4 MG/ML SDV ONE (09:51)
--- NOTE | 2021-10-15 10:29 | Anesthesia-General Post-Op ---
General Patient Condition Mental Status/LOC: Same as Preop Cardiovascular: Satisfactory Nausea/Vomiting: Absent Respiratory: Satisfactory Pain: Controlled Complications: Absent Post Op Complications Complications None Follow Up Care/Instructions Patient Instructions None needed. Anesthesia/Patient Condition Patient Condition Patient is doing well, no complaints, stable vital signs, no apparent adverse anesthesia problems. No complications reported per nursing. MARKEL MURRAY CRNA Oct 15, 2021 10:29
[2021-10-15] MEDS ORDERED: MEPERIDINE (DEMEROL) INJ 50 MG/ML IVP ONE (10:30)
[2021-10-15] MEDS ORDERED: ONDANSETRON 4 MG/2 ML (SDV) Z0FRAN IVP PRN (10:30)
[2021-10-15] MEDS ORDERED: fentaNYL INJ 100 MCG/2 ML AMP IVP ONE (10:30)
[2021-10-15] MEDS ORDERED: EPINEPHrine INJECTION 1 MG/ML AMP ONE (10:33)
--- NOTE | 2021-10-15 13:48 | OPERATIVE REPORT ---
DATE OF SERVICE: 10/15/2021 PREOPERATIVE DIAGNOSIS: Right rotator cuff tear. POSTOPERATIVE DIAGNOSES: 1. Right rotator cuff tear. 2. Right shoulder labral tear. PROCEDURES: 1. Right shoulder open rotator cuff repair. 2. Right shoulder arthroscopic labral debridement. SURGEON: Lincoln Cheema MD TURNAROUND ENGINEER: None. ANESTHESIA: General endotracheal by Joss Chen CRNA. ESTIMATED BLOOD LOSS: Minimal. DRAINS: None. COMPLICATIONS: None. POSTOPERATIVE PLAN: Sling wear and passive range of motion for 4 weeks. The patient was transferred to recovery room awake and in stable condition. STATEMENT OF MEDICAL NECESSITY: The patient is a 66-year-old right hand dominant gentleman, who previously underwent right rotator cuff repair and had been doing well until he sustained an injury and was unable to raise his arm. Ultimately, an MRI was obtained, which showed a full thickness rotator cuff tear. The patient was counseled this may not be fully . Due to functional impairment and failure to improve with conservative measures, the patient elected to proceed with surgical intervention. Examination under anesthesia revealed forward elevation of 170 degrees, external rotation of 90 degrees and internal rotation of 70 degrees. Arthroscopic findings demonstrated a full-thickness supraspinatus and infraspinatus tear with retraction to near the glenoid. In addition, there was a posterior labral flap without detachment of the capsule labral complex. The glenoid and humeral head demonstrated no gross chondral abnormalities. The biceps anchor was absent. DESCRIPTION OF PROCEDURE: After risks and benefits of procedure were discussed and questions were answered, an informed consent was signed and placed on chart, the operative site was confirmed in the preoperative holding area initialed by the surgeon. The patient was then transferred to the operating room and after adequate levels of general endotracheal anesthetic were obtained, a timeout was called, confirming the operative site. Examination under anesthesia was performed with above findings noted. The right shoulder and upper extremity were prepped and draped in the usual sterile fashion. Shoulder joint was injected with 20 mL of fluid and standard posterior portal was placed. A diagnostic arthroscopy was carried out with the above findings noted. Through a lateral portal, the labrum was debrided with a shaver. The shoulder joint was copiously irrigated. The lateral portal was then extended using the previous incision. The deltoid was split in line with its fibers. Previous sutures were removed from both the rotator cuff attachment and from the deltoid. The rotator cuff tear was mobilized and the infraspinatus was brought superiorly. Supraspinatus was retracted and atrophied. Therefore, there remained a small uncovered area anteriorly and posteriorly, the humeral head was covered well. The repair was performed with a single corkscrew anchor using a modified Josiah-Damon repair. An excellent repair was obtained. The wound was copiously irrigated. Deltoid was repaired in [id number] fashion using #2 FiberWire. The wound was further irrigated, 3-0 Vicryl was used to reapproximate subcutaneous tissue. Skin was closed with 4-0 nylon running alternating horizontal mattress fashion. The port sites were closed with 4-0 nylon in fashion. The shoulder joint was injected with Duramorph. Port sites were infiltrated with plain Marcaine. A soft dressing and sling were applied. The patient was transferred to the recovery room awake and in stable condition. Job ID: [id number] DocumentID: [id number] Dictated Date: 10/15/2021 10:28:45 Gps Field Data Collector Date: 10/15/2021 13:48:05 Dictated By: LINCOLN CHEEMA MD
== END 2021-10-15 12:40 | disposition home or self-care (01) ==
LOC: SDC 07:40
PROVIDERS: ATTEND Orthopaedic Surgery
DX: M75.101 Unspecified rotator cuff tear or rupture of right shoulder, not specified as traumatic (principal); S43.402A Unspecified sprain of left shoulder joint, initial encounter
CPT/HCPCS: 23412; 29822; 82947; 87081; C1713

== ENCOUNTER → 2021-10-23 | Outpatient (RCR) | payer OTHER, MEDICARE | END | disposition home or self-care (01) | PROVIDERS: ATTEND Orthopaedic Surgery | DX: M25.511 Pain in right shoulder (principal); I11.9 Hypertensive heart disease without heart failure; E11.9 Type 2 diabetes mellitus without complications; Z96.611 Presence of right artificial shoulder joint ==

== ENCOUNTER 2021-11-20 08:36 | Outpatient (RCR) | payer OTHER, MEDICARE | END 2021-11-22 | disposition home or self-care (01) | PROVIDERS: ATTEND Orthopaedic Surgery | DX: I11.9 Hypertensive heart disease without heart failure (principal); Z98.890 Other specified postprocedural states; E11.9 Type 2 diabetes mellitus without complications ==

== ENCOUNTER → 2021-12-23 | Outpatient (RCR) | payer OTHER, MEDICARE | END | disposition home or self-care (01) | PROVIDERS: ATTEND Orthopaedic Surgery | DX: M25.511 Pain in right shoulder (principal); I11.9 Hypertensive heart disease without heart failure; E11.9 Type 2 diabetes mellitus without complications; Z98.890 Other specified postprocedural states; Z96.611 Presence of right artificial shoulder joint ==

== ENCOUNTER 2021-12-25 08:17 | Outpatient (RCR) | payer OTHER, MEDICARE | END 2022-01-14 14:30 | disposition home or self-care (01) | PROVIDERS: ATTEND Orthopaedic Surgery | DX: M25.511 Pain in right shoulder (principal); I11.9 Hypertensive heart disease without heart failure; E11.9 Type 2 diabetes mellitus without complications; Z98.890 Other specified postprocedural states; Z96.611 Presence of right artificial shoulder joint ==

== ENCOUNTER → 2022-01-08 | Outpatient (CLI) | payer OTHER, MEDICARE ==
[2022-01-08 07:15] LABS: POTASSIUM 4.9 MMOL/L (3.6-5.0)
[2022-01-08 07:21] LABS: CREATININE SERUM 1.11 MG/DL (0.60-1.30)
[2022-01-08 07:23] LABS: MAGNESIUM 1.7 MG/DL (1.6-2.4)
== END ==
LOC: LAB 06:20
PROVIDERS: ATTEND Internal Medicine Cardiovascular Disease
DX: I25.10 Atherosclerotic heart disease of native coronary artery without angina pectoris (principal); I48.0 Paroxysmal atrial fibrillation; I65.23 Occlusion and stenosis of bilateral carotid arteries; I10 Essential (primary) hypertension; G47.33 Obstructive sleep apnea (adult) (pediatric); E78.2 Mixed hyperlipidemia; M79.89 Other specified soft tissue disorders; Z95.1 Presence of aortocoronary bypass graft; Z95.818 Presence of other cardiac implants and grafts
CPT/HCPCS: 36415; 80048; 83735

== ENCOUNTER 2022-02-11 19:01 | Inpatient (IN) | payer OTHER, MEDICARE ==
[~2022-02-11] VITALS: Ht 182.8 cm; Wt 120.0 kg
--- NOTE | 2022-02-11 19:18 | ED General ---
General Stated Complaint: SOB History of Present Illness Date Seen by Provider: Feb 11, 2022 Time Seen by Provider: 19:18 Initial Comments 66-year-old male with PMH of DM 2/HTN/obesity/CAD with quadruple bypass 3 years ago on baby aspirin/peripheral neuropathy/ CHF, is here with complaints of shortness of breath and chest discomfort for the past couple of days. Patient states that his chest pain is 2/10. Patient does not have any history of asthma or COPD and is not a smoker. Denies fever, abdominal pain, dysuria, hematuria, headache, dizziness, neurological deficits, back pain, palpitations. Patient is on a beta-estrellita. Patient is regular and consistent with his home medication regimen. Allergies and Home Medications Allergies Coded Allergies: amiodarone (Verified Allergy, Severe, Anaphylaxis, 10/08/21) SYSTEMIC oxycodone (Verified Allergy, Unknown, LETHARGIC, 10/08/21) Patient Home Medication List Home Medication List Reviewed: Yes Acetaminophen (Tylenol Extra Strength) 500 Mg Tablet, 1,000 MG PO BID, (Reported) Entered as Reported by: SHERYL PIÑA on 03/22/19 1353 Allopurinol (Allopurinol) 100 Mg Tablet, 100 MG PO BID, (Reported) Entered as Reported by: SHERYL PIÑA on 03/22/19 1346 Amlodipine Besylate (Norvasc) 5 Mg Tablet, 10 MG PO DAILY, (Reported) Entered as Reported by: SHERYL PIÑA on 03/22/19 1354 Aspirin (Aspir 81) 81 Mg Tablet.dr, 81 MG PO DAILY, (Reported) Entered as Reported by: SHERYL PIÑA on 03/22/19 1346 Atorvastatin Calcium (Atorvastatin Calcium) 40 Mg Tablet, 80 MG PO DAILY, (Reported) Entered as Reported by: SHERYL PIÑA on 03/22/19 1346 Brexpiprazole (Rexulti) 1 Mg Tablet, 1 MG PO DAILY, (Reported) Entered as Reported by: INES DENTON on 10/08/21 1341 Clonidine HCl (Clonidine HCl ER) 0.1 Mg Tab.er.12h, 0.1 MG PO DAILY, (Reported) Entered as Reported by: SHERYL PIÑA on 06/10/20 0953 Desvenlafaxine Succinate (Pristiq ER) 50 Mg Tab.er.24h, 50 MG PO HS, (Reported) Entered as Reported by: INES DENTON on 10/08/21 1341 Dexlansoprazole (Dexilant) 60 Mg Ricardo., 60 MG PO BID, (Reported) Entered as Reported by: SHERYL PIÑA on 03/22/19 1354 Furosemide (Furosemide) 40 Mg Tablet, 40 MG PO Q48H, (Reported) Entered as Reported by: SHERYL PIÑA on 03/22/19 1346 Metoprolol Tartrate (Metoprolol Tartrate) 100 Mg Tablet, 100 MG PO BID, (Reported) Entered as Reported by: SHERYL PIÑA on 03/22/19 1346 Mv-Mn/Iron/FA/Herbal Cmplx#190 (Vitamin D3 Complete Caplet) 1 Each Tablet, 1 EACH PO DAILY, (Reported) Entered as Reported by: INES DENTON on 10/08/21 1341 Potassium Chloride (Potassium Chloride) 20 Meq Tab.er.prt, 20 MEQ PO Q48H, (Reported) Entered as Reported by: SHERYL PIÑA on 03/22/19 1346 Sennosides/Docusate Sodium (Senna S Tablet) 1 Each Tablet, 1 EACH PO DAILY, (Reported) Entered as Reported by: SHERYL PIÑA on 03/22/19 1346 Sulfamethoxazole/Trimethoprim (Bactrim 400-80 mg Tablet) 1 Each Tablet, 0.5 EACH PO HS, (Reported) Entered as Reported by: SHERYL PIÑA on 06/10/20 0953 Tramadol HCl (Tramadol HCl) 50 Mg Tablet, 50 MG PO DAILY, (Reported) Entered as Reported by: SHERYL PIÑA on 03/22/19 1354 Tramadol HCl (Tramadol HCl) 50 Mg Tablet, 100 MG PO HS, (Reported) Entered as Reported by: MAYI PABLO on 10/16/20 0916 Trazodone HCl (Trazodone HCl) 50 Mg Tablet, 50 MG PO HS, (Reported) Entered as Reported by: ALEKSANDER GODDARD on 06/28/19 1054 Ubidecarenone (Co Q10) 200 Mg Capsule, 200 MG PO DAILY, (Reported) Entered as Reported by: SHERYL PIÑA on 03/22/19 4914 Review of Systems Review of Systems Constitutional: no symptoms reported EENTM: no symptoms reported Respiratory: short of breath Cardiovascular: chest pain, edema Gastrointestinal: no symptoms reported Genitourinary: no symptoms reported Musculoskeletal: no symptoms reported Skin: no symptoms reported Psychiatric/Neurological: No Symptoms Reported Hematologic/Lymphatic: No Symptoms Reported Immunological/Allergic: no symptoms reported Past Zjpefua-Jnphaf-Ymqepi Hx Immunizations Up To Date Tetanus Booster (TDap): Unknown PED Vaccines UTD: Yes First/Initial COVID19 Vaccinat: 09/06/20 Second COVID19 Vaccination Mason: 10/04/20 Third COVID19 Vaccination Date: APRIL 2021 Seasonal Allergies Seasonal Allergies: Yes Past Medical History Surgeries: Yes (CTR SARAHI,ANT COMPARTMENT SYNDROM R LEG, BILAT knee scope,LOOP RECORDER) Gallbladder, Orthopedic, Tonsillectomy Respiratory: No (SLEEP APNEA-USES CPAP, DYSPNEA) Pneumonia, Sleep Apnea Currently Using CPAP: Yes Currently Using BIPAP: No Cardiac: Yes (2 STENTS-CABG x 4, HAS LOOP RECORDER, EDEMA) Atrial Fibrillation, Chronic Edema/Swelling, Coronary Artery Disease, High Cholesterol, Hypertension Neurological: No ( 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) Seizure Disorder Reproductive Disorders: No Sexually Transmitted Disease: No HIV/AIDS: No Genitourinary: Yes (renal issues after CABG, ERECTYLE DYSFUNCTION) Benign Prostatic Hyperpl Gastrointestinal: Yes (UMB HERNIA REPAIR) Gastroesophageal Reflux, Hiatal Hernia Musculoskeletal: Yes (RIB FX) Degenerate Disk Disease, Arthritis, Chronic Back Pain, Fractures, Gout Endocrine: Yes Diabetes, Non-Insulin dep HEENT: No (cataracts removed) Loss of Vision: Denies Hearing Impairment: Denies Cancer: No Psychosocial: Yes Sleep Difficulties, Depression Integumentary: Yes (hx CELLULITIS LEFT LOWER EXTREMITY) Blood Disorders: No Adverse Reaction/Blood Tranf: Yes (fever-lab stated he had an adverse reaction ) Family Medical History Cardiovascular disease 19 FATHER 19 MOTHER Diabetes mellitus 19 FATHER 19 MOTHER G8 BROTHER Hypertension 19 FATHER Physical Exam Vital Signs Vital Signs - First Documented 02/11/22 02/11/22 19:15 20:29 Temp 36.3 Pulse 115 Resp 24 B/P (MAP) 191/106 (134) Pulse Ox 95 O2 Delivery Room Air O2 Flow Rate 1.00 Capillary Refill : Height, Weight, BMI Height: 6'0.00" Weight: 247lbs. 0.0oz. 112.500033lo; 36.67 BMI Method:Stated General Appearance: Mild Distress HEENT: PERRL/EOMI, Normal ENT Inspection Neck: Full Range of Motion, Normal Inspection, Non Tender Respiratory: Chest Non Tender, Normal Breath Sounds, Rales (very mild at bases ), Other (slightly diminished on both sides, but also morbidly obese.) Cardiovascular: Tachycardia (prior to adenosine) Gastrointestinal: Normal Bowel Sounds, Non Tender, Soft Extremity: Normal Range of Motion Neurologic/Psychiatric: Alert, Oriented x3, No Motor/Sensory Deficits Skin: Normal Color Focused Exam Lactate Level 02/11/22 19:55: Lactic Acid Level 1.38 Lactic Acid Level Laboratory Tests Test 02/11/22 19:55 Lactic Acid Level 1.38 MMOL/L (0.50-2.00) Progress/Results/Core Measures Suspected Sepsis SIRS Temperature: Pulse: Respiratory Rate: Laboratory Tests 02/11/22 19:25: White Blood Count 9.6 Blood Pressure / Mean: 02/11/22 19:55: Lactic Acid Level 1.38 Laboratory Tests 02/11/22 19:25: Creatinine 1.25, INR Comment 1.0, Platelet Count 178, Total Bilirubin 0.5 Results/Orders Lab Results Laboratory Tests Test 02/11/22 19:16 02/11/22 19:25 02/11/22 19:55 02/11/22 22:28 Range/Units Influenza Type A (RT-PCR) Not Detected Not Detecte Influenza Type B (RT-PCR) Not Detected Not Detecte SARS-CoV-2 RNA (RT-PCR) Not Detected Not Detecte White Blood Count 9.6 4.3-11.0 10^3/uL Red Blood Count 4.63 4.30-5.52 10^6/uL Hemoglobin 13.7 13.3-17.7 g/dL Hematocrit 42 40-54 % Mean Corpuscular Volume 90 80-99 fL Mean Corpuscular Hemoglobin 30 25-34 pg Mean Corpuscular Hemoglobin Concent 33 32-36 g/dL Red Cell Distribution Width 14.6 H 10.0-14.5 % Platelet Count 178 130-400 10^3/uL Mean Platelet Volume 9.7 9.0-12.2 fL Immature Granulocyte % (Auto) 0 % Neutrophils (%) (Auto) 74 42-75 % Lymphocytes (%) (Auto) 18 12-44 % Monocytes (%) (Auto) 6 0-12 % Eosinophils (%) (Auto) 1 0-10 % Basophils (%) (Auto) 1 0-10 % Neutrophils # (Auto) 7.1 1.8-7.8 10^3/uL Lymphocytes # (Auto) 1.7 1.0-4.0 10^3/uL Monocytes # (Auto) 0.5 0.0-1.0 10^3/uL Eosinophils # (Auto) 0.1 0.0-0.3 10^3/uL Basophils # (Auto) 0.1 0.0-0.1 10^3/uL Immature Granulocyte # (Auto) 0.0 0.0-0.1 10^3/uL Prothrombin Time 13.9 12.2-14.7 SEC INR Comment 1.0 0.8-1.4 Activated Partial Thromboplast Time 26 24-35 SEC D-Dimer 5.80 H 0.00-0.49 UG/ML Sodium Level 137 135-145 MMOL/L Potassium Level 4.1 3.6-5.0 MMOL/L Chloride Level 104 98-107 MMOL/L Carbon Dioxide Level 22 21-32 MMOL/L Anion Gap 11 5-14 MMOL/L Blood Urea Nitrogen 15 7-18 MG/DL Creatinine 1.25 0.60-1.30 MG/DL Estimat Glomerular Filtration Rate 63 BUN/Creatinine Ratio 12 Glucose Level 153 H 70-105 MG/DL Calcium Level 9.6 8.5-10.1 MG/DL Corrected Calcium 9.5 8.5-10.1 MG/DL Total Bilirubin 0.5 0.1-1.0 MG/DL Aspartate Amino Transf (AST/SGOT) 24 5-34 U/L Alanine Aminotransferase (ALT/SGPT) 32 0-55 U/L Alkaline Phosphatase 153 H 40-136 U/L Lactate Dehydrogenase 243 H 125-220 U/L Troponin I < 0.028 <0.028 NG/ML C-Reactive Protein High Sensitivity 1.79 H 0.00-0.50 MG/DL B-Type Natriuretic Peptide 676.1 H <100.0 PG/ML Total Protein 6.8 6.4-8.2 GM/DL Albumin 4.1 3.2-4.5 GM/DL Lactic Acid Level 1.38 0.50-2.00 MMOL/L My Orders Orders - HILL TAVERA MD Chest 1 View, Ap/Pa Only (02/11/22:) Vital Signs: Every 4 Hours (Or (02/11/22 19:24) Monitor-Rhythm Ecg Trace Only (02/11/22:) Ed Iv/Invasive Line Start (02/11/22) Cbc With Automated Diff (02/11/22) Comprehensive Metabolic Panel (02/11/22) LDH (02/11/22) Hs C Reactive Protein (02/11/22) Troponin I Tena (02/11/22:) Lactic Acid Analyzer (02/11/22) Protime With Inr (02/11/22) Partial Thromboplastin Time (02/11/22:) Fibrin Degradation Products (02/11/22) Ekg Tracing (02/11/22:) Acetaminophen Tablet/Caplet (Tylenol T (02/11/22 19:30) Albuterol Inhaler (Albuterol) (02/11/22 19:30) Covid 19 Inhouse Test (02/11/22:24) Influenza A And B By Pcr (02/11/22:24) Isolation Central Supply Req (02/11/22:24) Adenosine Injection (Adenocard Injection (02/11/22 20:00) Albuterol/Ipra Inhalation Soln (Duoneb I (02/11/22 20:15) Svn Small Volume Nebulizer (02/11/22 20:10) Bnp Tena (02/11/22 20:11) Adenosine Injection (Adenocard Injection (02/11/22 20:30) Aspirin Chewable Tablet (Baby Aspirin Ch (02/11/22 20:30) Ct Angio Chest W (02/11/22 20:40) Iohexol Injection (Omnipaque 350 Mg/Ml 1 (02/11/22 20:45) Ns (Ivpb) (Sodium Chloride 0.9% Ivpb Bag (02/11/22 20:45) Furosemide Injection (Lasix Injection) (02/11/22 20:57) Troponin I Tena (02/11/22 21:52) Ekg Tracing (02/11/22 21:52) Medications Given in ED Current Medications Medications Dose Ordered Sig/Grace Route Start Time Stop Time Status Last Admin Dose Admin Acetaminophen 650 mg ONCE ONCE PO 02/11/22 19:30 02/11/22 19:31 DC 02/11/22 19:39 650 MG Adenosine 6 mg ONCE ONCE IV 02/11/22 20:00 02/11/22 20:03 DC 02/11/22 20:15 6 MG Adenosine 6 mg ONCE ONCE IV 02/11/22 20:30 02/11/22 20:31 DC 02/11/22 21:00 6 MG Albuterol Sulfate 2 PUFFS ONCE PRN IH 02/11/22 19:30 02/11/22 19:40 8.5 GM Albuterol/ Ipratropium 3 ml ONCE ONCE INH 02/11/22 20:15 02/11/22 20:16 DC 02/11/22 20:29 3 ML Aspirin 324 mg ONCE ONCE PO 02/11/22 20:30 02/11/22 20:31 DC 02/11/22 20:47 324 MG Iohexol 100 ml ONCE ONCE IV 02/11/22 20:45 02/11/22 20:46 DC 02/11/22 21:28 88 ML Sodium Chloride 100 ml ONCE ONCE IV 02/11/22 20:45 02/11/22 20:46 DC 02/11/22 21:28 70 ML Vital Signs/I&O 02/11/22 02/11/22 19:15 20:29 Temp 36.3 Pulse 115 Resp 24 B/P (MAP) 191/106 (134) Pulse Ox 95 97 O2 Delivery Room Air Nasal Cannula O2 Flow Rate 1.00 Capillary Refill : Progress Note : Progress Note 1. CHEST PAIN/ SOB: - CXR: cardiomegally, otherwise unremarkable - BNP: 676 - CBC: normal WBC - CMP: see report - Symptoms improved after adenosine and lasix - Discussed with hospitalist, and will admit to step down for telemetry monitoring 2. SVT/ SINUS TACHYCARDIA: - Pt's heart rate is only 110-119, however rhythm appears as SVT on monitor/ EK G. Discussed with red hat linux administrator injection operator, and discussed administering adenosine since the heart rate is not typical for SVT, and usually is seen at a much higher rate. However, in this case, red hat linux administrator stated that the lower rate could be because pt is on a beta estrellita at home. ( pt takes Metoprolol 100mg bid), and will go ahead with adenosine to bring the heart rate down. - First dose of Adenosine 6mg given by nurse, but was not given correctly, and was given slowly over 1 minute. Ordered second dose of Adenosine 6mg and this time instructed nurse to slam it in quickly and flush thereafter. When administered correctly, heart rate improved to 68 to low 70's. - EKG repeated 3. ELEVATED D-DIMER: - D-dimer is 5.80 - CTA CHEST - Coag panel - Pt's legs have edema with right greater than left. Will need Ultrasound doppler in the morning to rule out DVT - Lovenox treatment dose started in ER 4. LOWER EXTREMITY CELLULITIS: - Will empirically cover for lower extremity cellulitis due to elevated CRP, even though WBC normal - Unasyn 3gm STAT 5. CHF: - Pt does not appear to be grossly fluid overloaded - BNP in 600's - Lasix 60mg iv STAT given in ER ECG Initial ECG Impression Date: Feb 11, 2022 Initial ECG Impression Time: 11:20 Initial ECG Rate: 112 Initial ECG Rhythm: S.Tach, SVT EKG : EKG Time: 22:02 Rate: 62 Rhythm: Normal Sinus ECG Comparisson: Changed Diagnostic Imaging Diagonstic Imaging: Xray, CT Plain Films/CT/US/NM/MRI: chest Comments [facility] [place], [place] NAME: ERICK MACBronwyn Eubanks [facility] REC#: [id number] PT STATUS: REG ER : 1955 PHYSICIAN: HILL TAVERA MD ADMIT DATE: 02/11/22/ER Signed Date of Exam:02/11/22 CHEST 1 VIEW, AP/PA ONLY Indication: Shortness of breath, chest pain. Findings: Sternal wires midline. Lungs clear. Mild cardiomegaly, chronic. No overt failure pattern, pneumonia or edema. No pleural effusion or pneumothorax. Impression: Stable chest, prominence of the heart but no acute-appearing pulmonary or pleural pathology. Dictated by: Dictated on workstation # [id number] Dict: 02/11/222031 Trans: 02/11/222052 CVB [id number] Interpreted by: LAMONT GREEN Electronically signed by: LAMONT GREEN 02/11/222052 [facility] [place], [place] NAME: DWIGHT MAC [facility] REC#: [id number] PT STATUS: REG ER : 1955 PHYSICIAN: HILL TAVERA MD ADMIT DATE: 02/11/22/ER Draft Date of Exam:02/11/22 CT ANGIO CHEST W PROCEDURE: CT angiography of the chest with contrast. TECHNIQUE: Multiple contiguous axial images were obtained through the chest after uneventful bolus administration of intravenous contrast. 3D reconstructed CTA MIP acquisitions were also performed. Auto Exposure Controls were utilized during the CT exam to meet ALARA standards for radiation dose reduction. INDICATION: Shortness of breath, chest pain. FINDINGS: Pulmonary arterial branches patent. No filling defect. No PE. The heart is enlarged but there is no pericardial effusion. There are tiny subcentimeter nonloculated pleural effusions. No findings of pneumonia or pulmonary edema. There is no pneumothorax. No lung mass. No thoracic adenopathy. There is a small hiatal hernia. The upper abdomen shows surgical clip presumed to reflect cholecystectomy versus a contracted gallbladder. No free fluid or free air. IMPRESSION: Hiatal hernia and tiny pleural effusions, however, no evidence for PE. Lungs clear. No mass or adenopathy. Dictated on workstation # [id number] Dict: 02/11/222130 Trans: 02/11/222152 PJE [id number] Interpreted by: LAMONT GREEN Electronically signed by: Departure Communication (Admissions) Time/Spoke to Admitting Phy: 22:[address] Askew. will admit Time/Spoke to Consulting Phy: 20:[address] Bonilla, cardiology for phone consult Impression Primary Impression: SVT (supraventricular tachycardia) Additional Impressions: Sinus tachycardia Paroxysmal supraventricular tachycardia seen on multi needle machine operator Elevated d-dimer CHF (congestive heart failure) Qualified Codes: I50.9 - Heart failure, unspecified Disposition: 30 STILL A PATIENT Condition: Stable Admissions Decision to Admit Reason: Admit from ER (General) Decision to Admit/Date: Feb 11, 2022 Time/Decision to Admit Time: 20:45 Departure-Patient Inst. Referrals: JELLY CHEEMA MD (PCP) Primary Care Physician HILL TAVERA MD Feb 11, 2022 19:18
[2022-02-11] MEDS ORDERED: ACETAMINOPHEN 325 MG TABLET PO ONE (19:30)
[2022-02-11] MEDS ORDERED: RT-ALBUTEROL HFA 8.5 GM INHALER IH PRN (19:30)
[2022-02-11 19:35] LABS: BASOPHILS # (AUTO) 0.1 10^3/uL (0.0-0.1); BASOPHILS % (AUTO) 1 % (0-10); EOSINOPHILS # (AUTO) 0.1 10^3/uL (0.0-0.3); EOSINOPHILS % (AUTO) 1 % (0-10); HEMATOCRIT 42 % (40-54); HEMOGLOBIN 13.7 g/dL (13.3-17.7); LYMPHOCYTES # (AUTO) 1.7 10^3/uL (1.0-4.0); LYMPHOCYTES % (AUTO) 18 % (12-44); MEAN CORPUSCULAR HEMOGLOBIN 30 pg (25-34); MEAN CORPUSCULAR HGB CONC 33 g/dL (32-36); MEAN CORPUSCULAR VOLUME 90 fL (80-99); MEAN PLATELET VOLUME 9.7 fL (9.0-12.2); MONOCYTES # (AUTO) 0.5 10^3/uL (0.0-1.0); MONOCYTES % (AUTO) 6 % (0-12); NEUTROPHILS # (AUTO) 7.1 10^3/uL (1.8-7.8); NEUTROPHILS % (AUTO) 74 % (42-75); PLATELET COUNT 178 10^3/uL (130-400); WHITE BLOOD COUNT 9.6 10^3/uL (4.3-11.0)
[2022-02-11 19:51] LABS: ALBUMIN 4.1 GM/DL (3.2-4.5); CHLORIDE 104 MMOL/L (98-107); POTASSIUM 4.1 MMOL/L (3.6-5.0); SODIUM 137 MMOL/L (135-145)
[2022-02-11 19:52] LABS: CALCIUM 9.6 MG/DL (8.5-10.1)
[2022-02-11 19:53] LABS: GLUCOSE 153 MG/DL (70-105); TOTAL PROTEIN 6.8 GM/DL (6.4-8.2)
[2022-02-11 19:54] LABS: CARBON DIOXIDE 22 MMOL/L (21-32)
[2022-02-11 19:55] LABS: BILIRUBIN,TOTAL 0.5 MG/DL (0.1-1.0)
[2022-02-11 19:57] LABS: ALKALINE PHOSPHATASE 153 U/L (40-136); CREATININE SERUM 1.25 MG/DL (0.60-1.30); GFR ESTIMATED 63
[2022-02-11 19:58] LABS: BUN/CREATININE RATIO 12
[2022-02-11 20:00] LABS: ALANINE AMINOTRANSFERASE 32 U/L (0-55)
[2022-02-11] MEDS ORDERED: ADENOSINE 6 MG/2 ML (ADENOCARD) VIAL IV ONE ×3 (20:00→20:30)
[2022-02-11 20:06] LABS: FIBRIN DEGRADATION PRODUCTS 5.8 UG/ML (0.00-0.49); PROTHROMBIN TIME PATIENT 13.9 SEC (12.2-14.7)
[2022-02-11] MEDS ORDERED: RT-ALBUTEROL/IPRATROPIUM 3 ML (DUONEB) VIAL INH ONE (20:15)
[2022-02-11] MEDS ORDERED: ASPIRIN 81 MG CHEW (CHILDREN'S ASA) PO ONE (20:30)
--- NOTE | 2022-02-11 20:42 | Diagnostic Imaging Report ---
Indication: Shortness of breath, chest pain. Findings: Sternal wires midline. Lungs clear. Mild cardiomegaly, chronic. No overt failure pattern, pneumonia or edema. No pleural effusion or pneumothorax. Impression: Stable chest, prominence of the heart but no acute-appearing pulmonary or pleural pathology. Dictated by: Dictated on workstation # [id number]
[2022-02-11] MEDS ORDERED: IOHEXOL 350 MG/ML 100 ML (OMNIPAQUE 350) VIAL IV ONE (20:45)
[2022-02-11] MEDS ORDERED: NS 100 ML (IVPB) BAG IV ONE (20:45)
[2022-02-11] MEDS ORDERED: FUROSEMIDE 40 MG/4 ML INJ (LASIX) IVP STA (20:57)
--- NOTE | 2022-02-11 21:55 | Diagnostic Imaging Report ---
PROCEDURE: CT angiography of the chest with contrast. TECHNIQUE: Multiple contiguous axial images were obtained through the chest after uneventful bolus administration of intravenous contrast. 3D reconstructed CTA MIP acquisitions were also performed. Auto Exposure Controls were utilized during the CT exam to meet ALARA standards for radiation dose reduction. INDICATION: Shortness of breath, chest pain. FINDINGS: Pulmonary arterial branches patent. No filling defect. No PE. The heart is enlarged but there is no pericardial effusion. There are tiny subcentimeter nonloculated pleural effusions. No findings of pneumonia or pulmonary edema. There is no pneumothorax. No lung mass. No thoracic adenopathy. There is a small hiatal hernia. The upper abdomen shows surgical clip presumed to reflect cholecystectomy versus a contracted gallbladder. No free fluid or free air. IMPRESSION: Hiatal hernia and tiny pleural effusions, however, no evidence for PE. Lungs clear. No mass or adenopathy. Dictated by: Dictated on workstation # [id number]
[2022-02-11] MEDS ORDERED: ENOXAPARIN 150 MG/ML (LOVENOX) SYR SQ STA (22:41)
[2022-02-11] MEDS ORDERED: AMPICILLIN/SULBACTAM INJECTION 3 GM in NS (IVPB) 100 ML IV ONE (23:00)
[2022-02-11] MEDS ORDERED: NS (IVPB) 100 ML ONE (23:03)
[2022-02-11] MEDS ORDERED: AMPICILLIN/SULBACTAM 3 GM VIAL (UNASYN) ONE (23:03)
[2022-02-11] MEDS ORDERED: CATHETER FLUSH 10 ML SYR IVP PRN (23:45)
[2022-02-11 23:58] VITALS: BP 207/107
[2022-02-12] VITALS (24 sets, daily range): BP systolic 144–218; BP diastolic 72–106
[2022-02-12] MEDS ORDERED: hydrALAZINE (APESOLINE) 20 MG/ML VIAL IV ONE (00:45)
[2022-02-12] MEDS ORDERED: hydrALAZINE (APESOLINE) 20 MG/ML VIAL ONE (00:46)
[2022-02-12] MEDS ORDERED: RT-ALBUTEROL SULF 2.5 MG/3 ML PRE-MIX VIAL INH PRN (01:00)
[2022-02-12] MEDS ORDERED: dilTIAZem DRIP PRE-MIX 0 ML IV ONE (02:23)
[2022-02-12] MEDS ORDERED: niCARdipine IV FOR DRIP 50 MG KIT ONE (02:24)
[2022-02-12] MEDS ORDERED: NS (IVPB) 250 ML ONE (02:25)
[2022-02-12] MEDS: niCARdipine IV FOR DRIP 50 MG in NS (IVPB) 230 ML IV SCH ×3 (02:34→22:55)
[2022-02-12 05:10] LABS: BASOPHILS # (AUTO) 0.1 10^3/uL (0.0-0.1); BASOPHILS % (AUTO) 1 % (0-10); EOSINOPHILS # (AUTO) 0.2 10^3/uL (0.0-0.3); EOSINOPHILS % (AUTO) 2 % (0-10); HEMATOCRIT 45 % (40-54); HEMOGLOBIN 14.7 g/dL (13.3-17.7); LYMPHOCYTES # (AUTO) 1.6 10^3/uL (1.0-4.0); LYMPHOCYTES % (AUTO) 15 % (12-44); MEAN CORPUSCULAR HEMOGLOBIN 29 pg (25-34); MEAN CORPUSCULAR HGB CONC 33 g/dL (32-36); MEAN CORPUSCULAR VOLUME 89 fL (80-99); MEAN PLATELET VOLUME 9.7 fL (9.0-12.2); MONOCYTES # (AUTO) 0.7 10^3/uL (0.0-1.0); MONOCYTES % (AUTO) 7 % (0-12); NEUTROPHILS # (AUTO) 7.9 10^3/uL (1.8-7.8); NEUTROPHILS % (AUTO) 75 % (42-75); PLATELET COUNT 209 10^3/uL (130-400); WHITE BLOOD COUNT 10.4 10^3/uL (4.3-11.0)
[2022-02-12 05:22] LABS: POTASSIUM 3.6 MMOL/L (3.6-5.0)
[2022-02-12 05:24] LABS: CALCIUM 9.7 MG/DL (8.5-10.1)
[2022-02-12 05:28] LABS: CREATININE SERUM 1.03 MG/DL (0.60-1.30)
[2022-02-12] MEDS: POTASSIUM CL 10MEQ/50ML IVPB 50 ML IV SCH (05:46)
[2022-02-12] MEDS: KCL 20 MEQ TAB (K-DUR) PO SCH (05:46)
[2022-02-12 06:03] LABS: PHOSPHORUS 3.8 MG/DL (2.3-4.7)
[2022-02-12 06:05] LABS: MAGNESIUM 1.5 MG/DL (1.6-2.4)
[2022-02-12] MEDS: MAGNESIUM 1 GM/100 ML IVPB 100 ML IV SCH ×3 (06:13→06:35)
[2022-02-12] MEDS: AMPICILLIN/SULBACTAM 3 GM/NS 100 ML IVPB IV SCH ×6 (06:34→18:06)
[2022-02-12] MEDS: CATHETER FLUSH 10 ML SYR IVP SCH ×3 (06:35→21:16)
[2022-02-12 06:56] LABS: TRIGLYCERIDES 279 MG/DL (<150); VLDL CHOLESTEROL 56 MG/DL (5-40)
[2022-02-12 07:01] LABS: CHOLESTEROL 155 MG/DL (< 200)
[2022-02-12 07:02] LABS: HDL CHOLESTEROL 33 MG/DL (40-60)
[2022-02-12] MEDS ORDERED: KCL 20 MEQ TAB (K-DUR) PO ONE (08:00)
[2022-02-12] MEDS ORDERED: ENOXAPARIN 150 MG/ML (LOVENOX) SYR SQ SCH (09:00)
[2022-02-12] MEDS ORDERED: FUROSEMIDE 40 MG/4 ML INJ (LASIX) IV SCH (09:00)
--- NOTE | 2022-02-12 09:40 | Diagnostic Imaging Report ---
PROCEDURE: US Venous Lower Ext [place]. TECHNIQUE: Multiple real-time grayscale images were obtained over the lower extremities in various projections, bilaterally. Additional duplex Doppler and color Doppler images were also obtained. INDICATION: Elevated D-dimer. There is no evidence of right or left lower extremity DVT. Both lower extremity deep venous systems demonstrate normal compressibility with normal response to augmentation and Valsalva. No fluid collection or mass is detected. IMPRESSION: No evidence of right or left lower extremity DVT. Dictated by: Dictated on workstation # [id number]
[2022-02-12] MEDS ORDERED: ATOR80TA76 PO (10:26)
[2022-02-12] MEDS ORDERED: LISI40TA9 PO (10:26)
[2022-02-12] MEDS ORDERED: CLN.1T PO (10:26)
[2022-02-12] MEDS ORDERED: SENN-145 PO (10:26)
[2022-02-12] MEDS ORDERED: POTA-51 PO (10:26)
[2022-02-12] MEDS ORDERED: ASPI-1238 PO (10:26)
[2022-02-12] MEDS ORDERED: CHOL10004 PO (10:26)
[2022-02-12] MEDS ORDERED: DESV50TA18 PO (10:26)
--- NOTE | 2022-02-12 10:28 | Consultation-Cardiology ---
HPI-Cardiology Cardiology Consultation: Date of Consultation 02/12/22 Date of Admission 02/11/22 Attending Physician Lincoln Rollins MD Admitting Physician Admitting Physician: Anni Askew MD Attending Physician: Anni Askew MD Consulting Physician ROXANNE JACOBS JR, MD HPI: Time Seen by a Provider: 12:30 Chief Complaint: REASON FOR CONSULTATION: Supraventricular tachycardia. I had the pleasure of seeing Al in the intensive care unit at [facility] in [place], [place] today. He normally follows with one of my partners, Dr. Cr. He has a history of coronary artery disease with previous coronary bypass surgery, postoperative paroxysmal atrial fibrillation following the bypass surgery that has not recurred, chronic heart failure with preserved ejection fraction, hypertension, hyperlipidemia, among other noncardiac issues. Over the past few weeks he had some changes in his medication due to some peripheral edema and intermittent dyspnea on exertion. Specifically, his amlodipine was changed over to lisinopril because of lower extremity edema. He had also been increasing his dose of furosemide due to some intermittent dyspnea. A couple of weeks ago he was taking his furosemide daily. Since his edema and shortness of breath had improved, about 1 week ago he went back to taking the furosemide every other day. However, for the past several days he has developed increasing dyspnea on exertion. Yesterday just walking from his vehicle into his house made him extremely short of breath. His checked his oxygen saturation which was low. He also had tachycardia. Because of these things, he came to the emergency room for further evaluation. He was found to be in supraventricular tachycardia which converted with intravenous adenosine. He was also given intravenous furosemide and admitted to the intensive care unit. Overnight, his breathing has improved. He asked to have a Asif catheter placed last evening due to all the urination from the intravenous furosemide. Soon after the Asif catheter was placed, he had hematuria. The nursing staff states that the Asif catheter was easy to place and not traumatic. When I saw the patient, he is breathing felt like it was back to his baseline. His concurred. He denies chest discomfort, paroxysmal nocturnal dyspnea, orthopnea, or palpitations. He does get some intermittent lightheaded spells but denies any syncope. His previous peripheral edema has nearly resolved. Because of the supraventricular tachycardia and possible heart failure, a cardiology consultation was requested. Certain portions of this document may have been dictated utilizing voice recognition technology. Inherent to this technology, typographical and grammatical errors may exist. As much as I am diligent to identify and correct these mistakes, some errors may remain in the document. Review of Systems-Cardiology Review of Systems Other comments Review of 10 organ systems is as per the history of present illness, otherwise negative. ODP-Xljmwn-Luelyi Hx Patient Social History Marrital Status: Smoking Status: Never a Smoker Former smoker/When Quit: Sep 13, 1974 2nd Hand Smoke Exposure: No Have you traveled recently?: No Alcohol Use?: No Pt feels they are or have been: No Immunizations Up To Date Tetanus Booster (TDap): Unknown Date of Pneumonia Vaccine: Aug 14, 2017 Date of Influenza Vaccine: Apr 25, 2020 Past Medical History PMH As described under Assessment. Family Medical History Family Medical History: He does not report fam h/o early CAD or SCE Family History: Cardiovascular disease 19 FATHER 19 MOTHER Diabetes mellitus 19 FATHER 19 MOTHER G8 BROTHER Hypertension 19 FATHER Allergies and Home Medications Allergies Coded Allergies: amiodarone (Verified Allergy, Severe, Anaphylaxis, 10/08/21) SYSTEMIC oxycodone (Verified Allergy, Unknown, LETHARGIC, 10/08/21) Patient Home Medication List Home Medication List Reviewed: Yes Acetaminophen (Tylenol Extra Strength) 500 Mg Tablet, 1,000 MG PO BID, (Reported) Entered as Reported by: SHERYL PIÑA on 03/22/19 1353 Last Action: Continued Allopurinol (Allopurinol) 100 Mg Tablet, 100 MG PO BID, (Reported) Entered as Reported by: SHERYL PIÑA on 03/22/19 1346 Last Action: Continued Aspirin (Aspirin EC) 81 Mg Tablet.dr, 81 MG PO DAILY, (Reported) Entered as Reported by: GIL CHRISTINE on 02/12/22 1026 Last Action: Continued Atorvastatin Calcium (Atorvastatin Calcium) 80 Mg Tablet, 80 MG PO HS, (Reported) Entered as Reported by: GIL CHRISTINE on 02/12/22 1026 Last Action: Continued Brexpiprazole (Rexulti) 1 Mg Tablet, 1 MG PO DAILY, (Reported) Entered as Reported by: INES DENTON on 10/08/21 1341 Last Action: Converted Cholecalciferol (Vitamin D3) (Vitamin D3) 25 Mcg (1000 Unit) Tablet, 25 MCG PO DAILY, (Reported) Entered as Reported by: GIL CHRISTINE on 02/12/22 102 Last Action: Continued Clonidine HCl (Clonidine HCl) 0.1 Mg Tablet, 0.1 MG PO DAILY, (Reported) Entered as Reported by: GIL CHRISTINE on 02/12/22 102 Last Action: Continued Desvenlafaxine Succinate (Desvenlafaxine Succinate ER) 50 Mg Tab.er.24h, 50 MG PO HS, (Reported) Entered as Reported by: GIL CHRISTINE on 02/12/22 102 Last Action: Converted Dexlansoprazole (Dexilant) 60 Mg Ricardo., 60 MG PO BID, (Reported) Entered as Reported by: SHERYL PIÑA on 03/22/19 1354 Last Action: Converted Furosemide (Furosemide) 40 Mg Tablet, 40 MG PO DAILY, (Reported) Entered as Reported by: SHERYL PIÑA on 03/22/19 1346 Last Action: Continued Lisinopril (Lisinopril) 40 Mg Tablet, 40 MG PO DAILY, (Reported) Entered as Reported by: GIL CHRISTINE on 02/12/22 102 Last Action: Continued Metoprolol Tartrate (Metoprolol Tartrate) 100 Mg Tablet, 100 MG PO BID, (Reported) Entered as Reported by: SHERYL PIÑA on 03/22/19 1346 Last Action: Converted Potassium Chloride (Potassium Chloride) 20 Meq Tablet.er, 20 MEQ PO DAILY, (Reported) Entered as Reported by: GIL CHRISTINE on 02/12/22 102 Last Action: Converted Sennosides/Docusate Sodium (Senna S Tablet) 8.6 Mg-50 Mg Tablet, 1 EACH PO HS, (Reported) Entered as Reported by: GIL CHRISTINE on 02/12/22 102 Last Action: Reviewed Sulfamethoxazole/Trimethoprim (Bactrim 400-80 mg Tablet) 1 Each Tablet, 0.5 EACH PO HS, (Reported) Entered as Reported by: SHERYL PIÑA on 06/10/20 0953 Last Action: Held Tramadol HCl (Tramadol HCl) 50 Mg Tablet, 50 MG PO DAILY, (Reported) Entered as Reported by: SHERYL PIÑA on 03/22/19 1354 Last Action: Continued Tramadol HCl (Tramadol HCl) 50 Mg Tablet, 100 MG PO HS, (Reported) Entered as Reported by: MAYI PABLO on 10/16/20 0916 Last Action: Continued Trazodone HCl (Trazodone HCl) 50 Mg Tablet, 50 MG PO HS, (Reported) Entered as Reported by: ALEKSANDER GODDARD on 06/28/19 1054 Last Action: Continued Ubidecarenone (Co Q10) 200 Mg Capsule, 200 MG PO DAILY, (Reported) Entered as Reported by: SHERYL PIÑA on 03/22/19 135 Last Action: Converted Discontinued Medications Amlodipine Besylate (Norvasc) 5 Mg Tablet, 10 MG PO DAILY, (Reported) Discontinued Reason: No Longer Taking Entered as Reported by: SHERYL PIÑA on 03/22/191353 Last Action: Discontinued Aspirin (Aspir 81) 81 Mg Tablet.dr, 81 MG PO DAILY, (Reported) Discontinued Reason: Duplicate Order Entered as Reported by: SHERYL PIÑA on 03/22/19 134 Last Action: Discontinued Atorvastatin Calcium (Atorvastatin Calcium) 40 Mg Tablet, 80 MG PO DAILY, (Reported) Discontinued Reason: Duplicate Order Entered as Reported by: SHERYL PIÑA on 03/22/191345 Last Action: Discontinued Clonidine HCl (Clonidine HCl ER) 0.1 Mg Tab.er.12h, 0.1 MG PO DAILY, (Reported) Discontinued Reason: No Longer Taking Entered as Reported by: SHERYL PIÑA on 06/10/20 0953 Last Action: Discontinued Desvenlafaxine Succinate (Pristiq ER) 50 Mg Tab.er.24h, 50 MG PO HS, (Reported) Discontinued Reason: Duplicate Order Entered as Reported by: INES DENTON on 10/08/21 134 Last Action: Discontinued Mv-Mn/Iron/FA/Herbal Cmplx#190 (Vitamin D3 Complete Caplet) 1 Each Tablet, 1 EACH PO DAILY, (Reported) Discontinued Reason: No Longer Taking Entered as Reported by: INES DENTON on 10/08/21 134 Last Action: Discontinued Sennosides/Docusate Sodium (Senna S Tablet) 1 Each Tablet, 1 EACH PO DAILY, (Reported) Discontinued Reason: Duplicate Order Entered as Reported by: SHERYL PIÑA on 03/22/19 1346 Last Action: Discontinued Exam Vital Signs Vital Signs Date Time Temp Pulse Resp B/P (MAP) Pulse Ox O2 Delivery O2 Flow Rate FiO2 02/12/22 18:00 70 27 150/81 (104) 93 Room Air 02/12/22 15:04 37.3 02/12/22 09:37 1.00 02/12/22 00:37 28 Physical Exam General: Alert. No acute distress. Well nourished and appears stated age. He is obese. He is wearing oxygen by nasal cannula. Eye: Extraocular movements are intact. Conjunctivae are clear. There are no xanthelasma. HENT: Normocephalic. Atraumatic. Carotid pulsations 2/2 without bruits. Neck: Jugular venous pressure does not appear elevated. No thyromegaly appreciated. Respiratory: Lungs have a few scattered wheezes. Respirations are non-labored. Breath sounds are equal. Symmetrical chest wall expansion. Cardiovascular: Normal rate. Regular rhythm. 2/6 systolic ejection murmur. No gallop. Point of maximal impulse is not appear displaced. Good pulses equal in all extremities. Trace bilateral pretibial edema, slightly worse on the right. Gastrointestinal: Soft. Normal bowel sounds. Skin: Skin turgor is normal. There is no pallor. Musculoskeletal: No kyphosis or scoliosis appreciated. Neurologic: Alert and oriented to person, place, time. Cranial nerves 3-12 appear grossly intact. The patient has good motor tone strength in the upper and lower extremities bilaterally. Psychiatric: Cooperative. Appropriate mood & affect. Labs Laboratory Tests Test 02/11/22 19:16 02/11/22 19:25 02/11/22 19:55 02/11/22 22:28 Range/Units Influenza Type A (RT-PCR) Not Detected Not Detecte Influenza Type B (RT-PCR) Not Detected Not Detecte SARS-CoV-2 RNA (RT-PCR) Not Detected Not Detecte White Blood Count 9.6 4.3-11.0 10^3/uL Red Blood Count 4.63 4.30-5.52 10^6/uL Hemoglobin 13.7 13.3-17.7 g/dL Hematocrit 42 40-54 % Mean Corpuscular Volume 90 80-99 fL Mean Corpuscular Hemoglobin 30 25-34 pg Mean Corpuscular Hemoglobin Concent 33 32-36 g/dL Red Cell Distribution Width 14.6 H 10.0-14.5 % Platelet Count 178 130-400 10^3/uL Mean Platelet Volume 9.7 9.0-12.2 fL Immature Granulocyte % (Auto) 0 % Neutrophils (%) (Auto) 74 42-75 % Lymphocytes (%) (Auto) 18 12-44 % Monocytes (%) (Auto) 6 0-12 % Eosinophils (%) (Auto) 1 0-10 % Basophils (%) (Auto) 1 0-10 % Neutrophils # (Auto) 7.1 1.8-7.8 10^3/uL Lymphocytes # (Auto) 1.7 1.0-4.0 10^3/uL Monocytes # (Auto) 0.5 0.0-1.0 10^3/uL Eosinophils # (Auto) 0.1 0.0-0.3 10^3/uL Basophils # (Auto) 0.1 0.0-0.1 10^3/uL Immature Granulocyte # (Auto) 0.0 0.0-0.1 10^3/uL Prothrombin Time 13.9 12.2-14.7 SEC INR Comment 1.0 0.8-1.4 Activated Partial Thromboplast Time 26 24-35 SEC D-Dimer 5.80 H 0.00-0.49 UG/ML Sodium Level 137 135-145 MMOL/L Potassium Level 4.1 3.6-5.0 MMOL/L Chloride Level 104 98-107 MMOL/L Carbon Dioxide Level 22 21-32 MMOL/L Anion Gap 11 5-14 MMOL/L Blood Urea Nitrogen 15 7-18 MG/DL Creatinine 1.25 0.60-1.30 MG/DL Estimat Glomerular Filtration Rate 63 BUN/Creatinine Ratio 12 Glucose Level 153 H 70-105 MG/DL Calcium Level 9.6 8.5-10.1 MG/DL Corrected Calcium 9.5 8.5-10.1 MG/DL Total Bilirubin 0.5 0.1-1.0 MG/DL Aspartate Amino Transf (AST/SGOT) 24 5-34 U/L Alanine Aminotransferase (ALT/SGPT) 32 0-55 U/L Alkaline Phosphatase 153 H 40-136 U/L Lactate Dehydrogenase 243 H 125-220 U/L Troponin I < 0.028 < 0.028 <0.028 NG/ML C-Reactive Protein High Sensitivity 1.79 H 0.00-0.50 MG/DL B-Type Natriuretic Peptide 676.1 H <100.0 PG/ML Total Protein 6.8 6.4-8.2 GM/DL Albumin 4.1 3.2-4.5 GM/DL Lactic Acid Level 1.38 0.50-2.00 MMOL/L Test 02/12/22 04:59 02/12/22 15:06 Range/Units White Blood Count 10.4 4.3-11.0 10^3/uL Red Blood Count 5.05 4.30-5.52 10^6/uL Hemoglobin 14.7 13.3-17.7 g/dL Hematocrit 45 40-54 % Mean Corpuscular Volume 89 80-99 fL Mean Corpuscular Hemoglobin 29 25-34 pg Mean Corpuscular Hemoglobin Concent 33 32-36 g/dL Red Cell Distribution Width 14.6 H 10.0-14.5 % Platelet Count 209 130-400 10^3/uL Mean Platelet Volume 9.7 9.0-12.2 fL Immature Granulocyte % (Auto) 1 % Neutrophils (%) (Auto) 75 42-75 % Lymphocytes (%) (Auto) 15 12-44 % Monocytes (%) (Auto) 7 0-12 % Eosinophils (%) (Auto) 2 0-10 % Basophils (%) (Auto) 1 0-10 % Neutrophils # (Auto) 7.9 H 1.8-7.8 10^3/uL Lymphocytes # (Auto) 1.6 1.0-4.0 10^3/uL Monocytes # (Auto) 0.7 0.0-1.0 10^3/uL Eosinophils # (Auto) 0.2 0.0-0.3 10^3/uL Basophils # (Auto) 0.1 0.0-0.1 10^3/uL Immature Granulocyte # (Auto) 0.1 0.0-0.1 10^3/uL Sodium Level 140 135-145 MMOL/L Potassium Level 3.6 3.6-5.0 MMOL/L Chloride Level 103 98-107 MMOL/L Carbon Dioxide Level 22 21-32 MMOL/L Anion Gap 15 H 5-14 MMOL/L Blood Urea Nitrogen 13 7-18 MG/DL Creatinine 1.03 0.60-1.30 MG/DL Estimat Glomerular Filtration Rate 79 BUN/Creatinine Ratio 13 Glucose Level 132 H 70-105 MG/DL Calcium Level 9.7 8.5-10.1 MG/DL Phosphorus Level 3.8 2.3-4.7 MG/DL Magnesium Level 1.5 L 1.6-2.4 MG/DL Triglycerides Level 279 H <150 MG/DL Cholesterol Level 155 < 200 MG/DL LDL Cholesterol Direct 88 1-129 MG/DL VLDL Cholesterol 56 H 5-40 MG/DL HDL Cholesterol 33 L 40-60 MG/DL Glucometer 111 H 70-110 MG/DL Radiology ECHOCARDIOGRAM (02/12/2022): 1. This is a technically difficult study due to poor image quality secondary to patient's body habitus. Intravenous contrast was administered to enhance image quality. 2. Left ventricle: The cavity size is normal. There is moderate concentric hypertrophy. Systolic function is normal. The estimated ejection fraction is 55- 60%. There is paradoxical septal motion consistent with a previous sternotomy. Left ventricular diastolic function parameters are normal. 3. Right ventricle: The cavity size is severely dilated measuring 4.5 cm at the base. Systolic function is normal. TAPSE 1.6 cm. 4. Left atrium: The left atrium is mildly dilated with a volume index of 37 mL/m. 5. Right atrium: The right atrium is severely dilated with an area of 29 cm. 6. Aortic valve: There is mild aortic valve sclerosis. There is mild aortic regurgitation with a pressure half-time of 1177 ms. 7. Pulmonary arteries: The estimated pulmonary artery systolic pressure is 47 mmHg assuming a right atrial pressure of 5 mmHg. 8. Compared to the report from the study performed on 04/03/2021, the tricuspid regurgitation is less significant on this study. ECG Impression ECG Comment His presenting electrocardiogram on 02/11 showed probable supraventricular tachycardia with left ventricular hypertrophy and repolarization abnormality. Another electrocardiogram following the administration of adenosine showed sinus rhythm with left ventricular hypertrophy and repolarization abnormality. Diagnosis/Problems Diagnosis/Problems (1) Supraventricular tachycardia Assessment & Plan: He appears to have developed supraventricular tachycardia that resolved with adenosine in the emergency room. No signs of recurrence. I recommend he continue on metoprolol which she was taking at home. (2) Acute on chronic heart failure with preserved ejection fraction (HFpEF) Status: Acute Assessment & Plan: Although his chest x-ray or chest CT did not show overt pulmonary edema, he has been having shortness of breath and his BNP is elevated. He may have some decompensation of his chronic heart failure with preserved ejection fraction. He will get another dose of intravenous furosemide today and then I will change this back over to oral furosemide once a day. He may need to continue on this dose indefinitely. (3) Hypertensive emergency Status: Acute Assessment & Plan: His blood pressure was rapidly elevated in the emergency room and he was started on intravenous nicardipine. I have restarted his regular outpatient medication and his blood pressure has improved. If his blood pressure becomes elevated again, we may need to make some additional adjustments to his antihypertensive medication. I should note, he was intolerant to amlodipine that caused severe peripheral edema. (4) Coronary artery disease without angina pectoris Status: Chronic Assessment & Plan: He does not seem to be having any overt angina. His troponin level was undetectable. Continue aspirin, beta-estrellita and statin medication. (5) Paroxysmal atrial fibrillation Assessment & Plan: He apparently had postoperative atrial fibrillation around the time of his previous coronary bypass surgery. The supraventricular tachycardia he had in the emergency room at the time of admission did not appear to be atrial fibrillation and also broke with adenosine which would not happen with atrial fibrillation. As such, there no strong indications for oral anticoagulation at this time. (6) Mixed hyperlipidemia Status: Chronic Assessment & Plan: Continue statin medication. (7) Elevated d-dimer Status: Acute Assessment & Plan: I am not entirely sure what to make of the elevated D-dimer. His CT angiogram of the chest did not show any evidence of pulmonary emboli and his lower extremity ultrasound did not show any evidence of deep venous thrombosis. His troponin was undetectable which makes acute myocardial infa rction extremely unlikely. Sometimes, we do see nonspecific elevation of the D- dimer without any definitive evidence of systemic thromboembolism. We can change the enoxaparin dosing over to prophylactic dosing. (8) Obesity Assessment & Plan: He needs to work on weight loss. Problem Qualifiers (1) Coronary artery disease without angina pectoris: Coronary Disease-Associated Artery/Lesion type: [place] artery [place] vs. transplanted heart: [place] heart Qualified Codes: I25.10 - Atherosclerotic heart disease of [place] coronary artery without angina pectoris ROXANNE JACOBS JR, MD Feb 12, 2022 10:27
--- NOTE | 2022-02-12 10:35 | Tele-ICU Consult ---
History of Present Illness History of Present Illness Date Seen by Provider: Feb 12, 2022 Time Seen by Provider: 10:34 Date of Admission (Tele-ICU Physician , consultation) Available chart/ vitals / labs / Images reviewed H&P is from ER notes Patient's information available about PMH, Shx, Fhx allergy reviewed in EMR. ROS as per chart and RN report Now in ICU, hemodynamically stable Video assessment done using teleICU camera, rest of exam as per RN Discussed with RN. Consultants: [facility] Hospital course: (02/12) 66y M with CP and SOB, ST/SVT, elevated D Dimer, lower extremity cellulit is and CHF with elevated BNP. Adenosine given for SVT. TRANSFERRED from CSU to ICU , elevated b/p A/P HTN with CP - on cardene gtt - ECHO done , results pending - as per cards SVT in ER - tx with ademisine 6 mg - decreased HR to 70s Elev Ddimer -CTA chest - NO PE - US LE 02/12- NO dvt Cellulitis LE - started on Unacin in ER CAD, s/p CABG , presented with CP - on lovenox 130 bid - as per cards Hypoxia - CTA - no pe , no pna - to wean off DM II with periph neuropathy - ISS NATE - to cont CPAP at night Lines : (Central Line Necessity Reviewed) Asif: OG: Nutrition: po Analgesia: Anxiety/ delirium VTE Prophylaxis: - on lovenox 130 bid Stress Ulcer Prophylaxis: no Plans in collaboration with bedside consultants and IM MDs. Discussed with RN to reach out if any questions or concerns A total of 31 minutes of critical care time was devoted to this patient today, required to treat and/or prevent further deterioration of critical care cond ition ( as above ) . Allergies and Home Medications Allergies Coded Allergies: amiodarone (Verified Allergy, Severe, Anaphylaxis, 10/08/21) SYSTEMIC oxycodone (Verified Allergy, Unknown, LETHARGIC, 10/08/21) Home Medications Acetaminophen 500 Mg Tablet, 1,000 MG PO BID, (Reported) TAKES 2 (500MG) TABS Allopurinol 100 Mg Tablet, 100 MG PO BID, (Reported) Aspirin 81 Mg Tablet.dr, 81 MG PO DAILY, (Reported) Atorvastatin Calcium 80 Mg Tablet, 80 MG PO HS, (Reported) Brexpiprazole 1 Mg Tablet, 1 MG PO DAILY, (Reported) Cholecalciferol (Vitamin D3) 25 Mcg (1000 Unit) Tablet, 25 MCG PO DAILY, (Reported) Clonidine HCl 0.1 Mg Tablet, 0.1 MG PO DAILY, (Reported) Desvenlafaxine Succinate 50 Mg Tab.er.24h, 50 MG PO HS, (Reported) Dexlansoprazole 60 Mg bp, 60 MG PO BID, (Reported) Furosemide 40 Mg Tablet, 40 MG PO DAILY, (Reported) Lisinopril 40 Mg Tablet, 40 MG PO DAILY, (Reported) Metoprolol Tartrate 100 Mg Tablet, 100 MG PO BID, (Reported) Potassium Chloride 20 Meq Tablet.er, 20 MEQ PO DAILY, (Reported) TAKES WITH FUROSEMIDE. IF FREQUEMCY CHANGES ON FUROSEMIDE THEN POTASSIUM CHANGES WELL Sennosides/Docusate Sodium 8.6 Mg-50 Mg Tablet, 1 EACH PO HS, (Reported) Sulfamethoxazole/Trimethoprim 1 Each Tablet, 0.5 EACH PO HS, (Reported) Tramadol HCl 50 Mg Tablet, 50 MG PO DAILY, (Reported) Tramadol HCl 50 Mg Tablet, 100 MG PO HS, (Reported) TAKES 2 (50MG) TABS Trazodone HCl 50 Mg Tablet, 50 MG PO HS, (Reported) Ubidecarenone 200 Mg Capsule, 200 MG PO DAILY, (Reported) Past Medical/Social/Family Hx Patient Social History Tobacco Use?: No Smoking Status: Never a Smoker Use of E-Cig and/or Vaping dev: No Substance use?: No Alcohol Use?: No HX OF ALCOHOLISM Pt stated abuse/neglect: No Immunizations Up To Date Influenza Vaccine Up-to-Date: Yes; Up-to-Date First/Initial COVID19 Vaccinat: 09/06/20 Second COVID19 Vaccination [place]: 10/04/20 Tetanus Booster (TDap): Unknown Date of Pneumonia Vaccine: Aug 14, 2017 Current Status Advance Directives: No Communicates: Verbally Primary Language: Greek Preferred Spoken Language: Greek Is interpretation needed?: No Sensory deficits: Vision impairment Implanted or Applied Medical D: CPAP Past Medical History CAD s/p stent x2 DM Type 2 Hypertension Hyperlipidemia Larios's disease DDD/chronic back pain gout BPH GERD IBS s/p umbilical hernia repair s/p carpal tunnel repair s/p anterior compartment syndrome L leg s/p marquez knee scopes Review of Systems Constitutional: see HPI Focused Exam Lactate Level 02/11/22 19:55: Lactic Acid Level 1.38 Height, Weight, BMI Height: 6'0.00" Weight: 247lbs. 0.0oz. [id number]; 35.97 BMI Method:Stated Exam Exam Patient acknowledged, consented, and participated in this virtual visit which was conducted using real time audio/video Vital Signs Date Time Temp Pulse Resp B/P (MAP) Pulse Ox O2 Delivery O2 Flow Rate FiO2 02/12/22 09:44 Room Air 02/12/22 09:37 93 Room Air 1.00 02/12/22 09:00 64 22 144/72 (96) 91 Nasal Cannula 2.00 02/12/22 08:00 63 17 159/75 (103) 94 Nasal Cannula 2.00 02/12/22 07:58 152/74 02/12/22 07:00 64 19 149/72 (97) 94 Nasal Cannula 2.00 02/12/22 06:40 66 02/12/22 06:00 65 155/78 (103) 93 Nasal Cannula 2.00 02/12/22 05:00 64 28 146/74 (98) 92 Nasal Cannula 2.00 02/12/22 04:00 94 Nasal Cannula 2.00 02/12/22 04:00 61 30 151/73 (99) 91 Nasal Cannula 2.00 02/12/22 03:00 61 19 181/84 (116) 94 Nasal Cannula 2.00 02/12/22 02:34 115 191/106 02/12/22 02:00 64 25 218/88 (131) 97 Nasal Cannula 2.00 02/12/22 01:00 56 16 186/81 (116) 98 Nasal Cannula 2.00 02/12/22 00:37 36.3 115 94 28 02/12/22 00:05 95 Nasal Cannula 2.00 02/12/22 00:00 68 02/11/22 23:58 36.7 64 27 207/107 (140) 98 Nasal Cannula 2.00 02/11/22 23:44 62 20 197/84 98 Room Air 02/11/22 20:29 97 Nasal Cannula 1.00 02/11/22 19:15 36.3 115 24 191/106 (134) 95 Room Air I & O 02/12/22 07:00 Intake Total 280 ml Output Total 2650 ml Balance -2370 ml Height & Weight Height: 6'0.00" Weight: 247lbs. 0.0oz. [id number]; 35.97 BMI Method:Stated General Appearance: No Apparent Distress, Mild Distress HEENT: PERRL/EOMI, Normal ENT Inspection Neck: Full Range of Motion, Normal Inspection, Non Tender Respiratory: Chest Non Tender, Normal Breath Sounds, Rales (very mild at bases), Other (slightly diminished on both sides, but also morbidly obese.) Cardiovascular: Tachycardia (prior to adenosine) Capillary Refill: Less Than 3 Seconds Extremity: Normal Range of Motion Neurologic/Psychiatric: Alert, Oriented x3, No Motor/Sensory Deficits Skin: Normal Color Results Lab Laboratory Tests 02/11/22 19:25 02/12/22 04:59 Assessment/Plan Assessment/Plan 1 JAMES MUELLER MD Feb 12, 2022 10:35
[2022-02-12] MEDS ORDERED: meTOprolol TARTRATE 50 MG (LOPRESSOR) TAB PO NR (12:30)
[2022-02-12] MEDS ORDERED: lisINopril 20 MG (PRINIVIL) TABLET PO NR (12:30)
--- NOTE | 2022-02-12 13:29 | History & Physical ---
HPI History of Present Illness: 66 yo M that presented with increasing shortness of breath and chest pain. Patient states that he has been having increasing LE swelling over the last few weeks. He had increased lasix last week per cardiology for 4-5 days and that improved the swelling some but it has come back. Last night he was unable to catch his breath and his who is a nurse states that he was breathing >30 times per min and brought him to the ER. He does not weight himself at home so is unsure about any acute weight gain from fluid. Denies missing any of his cardiac medications. Source: patient, spouse Exam Limitations: no limitations Date seen by provider: Feb 12, 2022 Time Seen by Provider: 09:00 Attending Physician Lincoln Rollins MD PCP Admitting Physician: Jerome Askew MD Attending Physician: Jerome Askew MD Consult Date of Admission Feb 11, 2022 at 22:30 Home Medications Home Medications Reviewed patient Home Medication Reconciliation performed by pharmacy medication reconciliations hvac technician residential and/or nursing. Patients Allergies have been reviewed. Allergies Coded Allergies: amiodarone (Verified Allergy, Severe, Anaphylaxis, 10/08/21) SYSTEMIC oxycodone (Verified Allergy, Unknown, LETHARGIC, 10/08/21) [id number] Hx Patient Social History Marrital Status: Living Status: Lives at home with independently Smoking Status: Never a Smoker Former smoker/When Quit: Sep 13, 1974 2nd Hand Smoke Exposure: No Recent Hopitalizations: No Alcohol Use?: No Have you traveled recently?: No Immunizations Up To Date Tetanus Booster (TDap): Unknown Influenza Vaccine Up-to-Date: Yes; Up-to-Date First/Initial COVID19 Vaccinat: 09/06/20 Second COVID19 Vaccination Mason: 10/04/20 Third COVID19 Vaccination Date: APRIL 2021 COVID19 Vaccine Booth Usher: MODERNA Past Medical History CAD s/p stent x2 DM Type 2 Hypertension Hyperlipidemia Larios's disease DDD/chronic back pain gout BPH GERD IBS s/p umbilical hernia repair s/p carpal tunnel repair s/p anterior compartment syndrome L leg s/p marquez knee scopes Family Medical History Family History: Cardiovascular disease 19 FATHER 19 MOTHER Diabetes mellitus 19 FATHER 19 MOTHER G8 BROTHER Hypertension 19 FATHER Review of Systems (CHC) Constitutional: malaise, weakness EENTM: no symptoms reported; No mouth pain, No nose congestion, No nose pain Respiratory: dyspnea on exertion, short of breath Cardiovascular: chest pain, edema, palpitations Gastrointestinal: no symptoms reported; No abdominal pain, No constipation, No diarrhea, No nausea, No vomiting Genitourinary: frequency Musculoskeletal: joint pain, muscle pain Skin: no symptoms reported Psychiatric/Neurological: Weakness Reviewed Test Results Reviewed Test Results Lab Laboratory Tests Test 02/11/22 19:16 02/11/22 19:25 02/11/22 19:55 02/11/22 22:28 Range/Units Influenza Type A (RT-PCR) Not Detected Not Detecte Influenza Type B (RT-PCR) Not Detected Not Detecte SARS-CoV-2 RNA (RT-PCR) Not Detected Not Detecte White Blood Count 9.6 4.3-11.0 10^3/uL Red Blood Count 4.63 4.30-5.52 10^6/uL Hemoglobin 13.7 13.3-17.7 g/dL Hematocrit 42 40-54 % Mean Corpuscular Volume 90 80-99 fL Mean Corpuscular Hemoglobin 30 25-34 pg Mean Corpuscular Hemoglobin Concent 33 32-36 g/dL Red Cell Distribution Width 14.6 H 10.0-14.5 % Platelet Count 178 130-400 10^3/uL Mean Platelet Volume 9.7 9.0-12.2 fL Immature Granulocyte % (Auto) 0 % Neutrophils (%) (Auto) 74 42-75 % Lymphocytes (%) (Auto) 18 12-44 % Monocytes (%) (Auto) 6 0-12 % Eosinophils (%) (Auto) 1 0-10 % Basophils (%) (Auto) 1 0-10 % Neutrophils # (Auto) 7.1 1.8-7.8 10^3/uL Lymphocytes # (Auto) 1.7 1.0-4.0 10^3/uL Monocytes # (Auto) 0.5 0.0-1.0 10^3/uL Eosinophils # (Auto) 0.1 0.0-0.3 10^3/uL Basophils # (Auto) 0.1 0.0-0.1 10^3/uL Immature Granulocyte # (Auto) 0.0 0.0-0.1 10^3/uL Prothrombin Time 13.9 12.2-14.7 SEC INR Comment 1.0 0.8-1.4 Activated Partial Thromboplast Time 26 24-35 SEC D-Dimer 5.80 H 0.00-0.49 UG/ML Sodium Level 137 135-145 MMOL/L Potassium Level 4.1 3.6-5.0 MMOL/L Chloride Level 104 98-107 MMOL/L Carbon Dioxide Level 22 21-32 MMOL/L Anion Gap 11 5-14 MMOL/L Blood Urea Nitrogen 15 7-18 MG/DL Creatinine 1.25 0.60-1.30 MG/DL Estimat Glomerular Filtration Rate 63 BUN/Creatinine Ratio 12 Glucose Level 153 H 70-105 MG/DL Calcium Level 9.6 8.5-10.1 MG/DL Corrected Calcium 9.5 8.5-10.1 MG/DL Total Bilirubin 0.5 0.1-1.0 MG/DL Aspartate Amino Transf (AST/SGOT) 24 5-34 U/L Alanine Aminotransferase (ALT/SGPT) 32 0-55 U/L Alkaline Phosphatase 153 H 40-136 U/L Lactate Dehydrogenase 243 H 125-220 U/L Troponin I < 0.028 < 0.028 <0.028 NG/ML C-Reactive Protein High Sensitivity 1.79 H 0.00-0.50 MG/DL B-Type Natriuretic Peptide 676.1 H <100.0 PG/ML Total Protein 6.8 6.4-8.2 GM/DL Albumin 4.1 3.2-4.5 GM/DL Lactic Acid Level 1.38 0.50-2.00 MMOL/L Test 02/12/22 04:59 Range/Units White Blood Count 10.4 4.3-11.0 10^3/uL Red Blood Count 5.05 4.30-5.52 10^6/uL Hemoglobin 14.7 13.3-17.7 g/dL Hematocrit 45 40-54 % Mean Corpuscular Volume 89 80-99 fL Mean Corpuscular Hemoglobin 29 25-34 pg Mean Corpuscular Hemoglobin Concent 33 32-36 g/dL Red Cell Distribution Width 14.6 H 10.0-14.5 % Platelet Count 209 130-400 10^3/uL Mean Platelet Volume 9.7 9.0-12.2 fL Immature Granulocyte % (Auto) 1 % Neutrophils (%) (Auto) 75 42-75 % Lymphocytes (%) (Auto) 15 12-44 % Monocytes (%) (Auto) 7 0-12 % Eosinophils (%) (Auto) 2 0-10 % Basophils (%) (Auto) 1 0-10 % Neutrophils # (Auto) 7.9 H 1.8-7.8 10^3/uL Lymphocytes # (Auto) 1.6 1.0-4.0 10^3/uL Monocytes # (Auto) 0.7 0.0-1.0 10^3/uL Eosinophils # (Auto) 0.2 0.0-0.3 10^3/uL Basophils # (Auto) 0.1 0.0-0.1 10^3/uL Immature Granulocyte # (Auto) 0.1 0.0-0.1 10^3/uL Sodium Level 140 135-145 MMOL/L Potassium Level 3.6 3.6-5.0 MMOL/L Chloride Level 103 98-107 MMOL/L Carbon Dioxide Level 22 21-32 MMOL/L Anion Gap 15 H 5-14 MMOL/L Blood Urea Nitrogen 13 7-18 MG/DL Creatinine 1.03 0.60-1.30 MG/DL Estimat Glomerular Filtration Rate 79 BUN/Creatinine Ratio 13 Glucose Level 132 H 70-105 MG/DL Calcium Level 9.7 8.5-10.1 MG/DL Phosphorus Level 3.8 2.3-4.7 MG/DL Magnesium Level 1.5 L 1.6-2.4 MG/DL Triglycerides Level 279 H <150 MG/DL Cholesterol Level 155 < 200 MG/DL LDL Cholesterol Direct 88 1-129 MG/DL VLDL Cholesterol 56 H 5-40 MG/DL HDL Cholesterol 33 L 40-60 MG/DL Physical Exam-(CHC) Physical Exam Vital Signs VS - Last 72 Hours, by Label 02/11/22 02/11/22 02/11/22 02/11/22 19:15 20:29 23:44 23:58 Temp 36.3 36.7 Pulse 115 62 64 Resp 24 20 27 B/P (MAP) 191/106 (134) 197/84 207/107 (140) Pulse Ox 95 97 98 98 O2 Delivery Room Air Nasal Cannula Room Air Nasal Cannula O2 Flow Rate 1.00 2.00 7/21/22 7/21/22 7/21/22 7/21/22 00:00 00:05 00:37 01:00 Temp 36.3 Pulse 68 115 56 Resp 16 B/P (MAP) 186/81 (116) Pulse Ox 95 94 98 O2 Delivery Nasal Cannula Nasal Cannula O2 Flow Rate 2.00 2.00 FiO2 28 02/12/22 02/12/22 02/12/22 02/12/22 02:00 02:34 03:00 04:00 Pulse 64 115 61 61 Resp 25 19 30 B/P (MAP) 218/88 (131) 191/106 181/84 (116) 151/73 (99) Pulse Ox 97 94 91 O2 Delivery Nasal Cannula Nasal Cannula Nasal Cannula O2 Flow Rate 2.00 2.00 2.00 02/12/22 02/12/22 02/12/22 02/12/22 04:00 05:00 06:00 06:40 Pulse 64 65 66 Resp 28 B/P (MAP) 146/74 (98) 155/78 (103) Pulse Ox 94 92 93 O2 Delivery Nasal Cannula Nasal Cannula Nasal Cannula O2 Flow Rate 2.00 2.00 2.00 02/12/22 02/12/22 02/12/22 02/12/22 07:00 07:58 08:00 08:00 Pulse 64 63 Resp 19 17 B/P (MAP) 149/72 (97) 152/74 159/75 (103) Pulse Ox 94 94 O2 Delivery Nasal Cannula Room Air Nasal Cannula O2 Flow Rate 2.00 2.00 02/12/22 02/12/22 02/12/22 02/12/22 09:00 09:37 09:44 10:00 Pulse 64 65 Resp 22 16 B/P (MAP) 144/72 (96) 155/77 (103) Pulse Ox 91 93 95 O2 Delivery Nasal Cannula Room Air Room Air Room Air O2 Flow Rate 2.00 1.00 02/12/22 02/12/22 02/12/22 02/12/22 11:00 11:50 12:00 12:53 Pulse 70 79 70 Resp 35 21 B/P (MAP) 159/73 (101) 165/82 (109) Pulse Ox 93 93 O2 Delivery Room Air Room Air Room Air 02/12/22 13:00 Pulse 68 Resp 23 B/P (MAP) 150/77 (101) Pulse Ox 92 O2 Delivery Room Air Capillary Refill : Less Than 3 Seconds General Appearance: WD/WN, no apparent distress, obese HEENT: PERRL/EOMI Neck: non-tender, full range of motion, supple Respiratory: no accessory muscle use, crackles, wheezing Cardiovascular: regular rate, rhythm, systolic murmur Gastrointestinal: normal bowel sounds, non tender, soft Back: no CVA tenderness Extremities: normal range of motion, normal capillary refill, pedal edema (3+ pitting edema with chronic hemociderin deposition bilaterally) Neurologic/Psychiatric: supervisor sewer system II-XII nml as tested, no motor/sensory deficits, alert, normal mood/affect, oriented x 3 Lymphatic: no adenopathy Assessment/Plan Assessment/Plan Admission Status: Inpatient Order (span 2 midnights) Reason for Inpatient Admission: Patient high risk for decompensation and requiring urgent cardiology consult (1) Hypertensive emergency Status: Acute Assessment & Plan: - Patient initially placed in cardiac stepdown but HTN was not able to be controlled with PRN IV medications, patient was moved to ICU and started on cardene drip, cardiology consulted, appreciate recommendations (2) SVT (supraventricular tachycardia) Status: Acute Assessment & Plan: - Received 2 doses of adenosine in ER, rate is better controlled (3) Acute on chronic heart failure with preserved ejection fraction (HFpEF) Status: Acute Assessment & Plan: - Continue diuresis with IV lasix, echo pending (4) Atypical chest pain Status: Acute Assessment & Plan: - CE negative, resolved this AM (5) Insulin dependent diabetes mellitus Status: Chronic Assessment & Plan: - Restart home meds (6) NATE on CPAP Status: Chronic (7) Coronary artery disease without angina pectoris Status: Chronic Qualifiers: Qualified Codes: I25.10 - Atherosclerotic heart disease of [place] coronary artery without angina pectoris (8) Mixed hyperlipidemia Status: Chronic (9) Elevated d-dimer Status: Acute Assessment & Plan: - CTA and bilateral LE dopplers neg for clot, unsure of cause of elevation (10) DVT prophylaxis Status: Acute Assessment & Plan: - lovenox Clinical Quality Measures AMI/AHF: ASA po Prior to arrival: JEROME Esteves MD Feb 12, 2022 13:29
--- NOTE | 2022-02-12 15:42 | CONSULTATION REPORT ---
DATE OF SERVICE: 02/12/2022 SUMMARY: After reviewing the patient's record at the office in the hospital, this is a 66-year-old white man known to me for history of on and off prostatitis, who is being admitted for possible DVT or PE, apparently, has been ruled out. He has been on therapeutic dose of Lovenox, had a catheter inserted yesterday to monitor his output, especially with the use of Lasix. The catheter has been atraumatic, but today, he has been having some bloody urine. His urine has just tinged now, no clots and the catheter has been draining very well. IMPRESSION: Gross hematuria. RECOMMENDATIONS: As long as the urine is stable or improving, continue Lovenox. If it becomes grossly bloody should hold the Lovenox until clear. We will see the patient back in the office in three weeks. We will do workup for the hematuria. The plan was fully explained to the patient and all of his questions were answered. CC: Dr. Anni Askew - requested, unable to deliver. Job ID: [id number] DocumentID: [id number] Dictated Date: 02/12/2022 13:26:55 Portfolio Accountant Date: 02/12/2022 15:41:56 Dictated By: ELLE CRUZ MD
[2022-02-12] MEDS ORDERED: cloNIDine 0.1 MG (CATAPRES) TAB PO NR (15:45)
[2022-02-12] MEDS ORDERED: ACETAMINOPHEN 500 MG TAB (TYLENOL) PO PRN (16:00)
[2022-02-12] MEDS ORDERED: ACETAMINOPHEN 325 MG TABLET PO PRN (17:15)
[2022-02-12] MEDS ORDERED: VENlafaxine XR 75 MG (EFFEXOR XR) CAP PO SCH (18:00)
[2022-02-12] MEDS ORDERED: NON-FORMULARY MEDICATION 1 EA EA (Desvenlafaxine Succinate (Desvenlafaxine Succinate ER) 5 PO SCH (21:00)
[2022-02-12] MEDS ORDERED: NON-FORMULARY MEDICATION 1 EA EA (Metoprolol Tartrate 100 MG) PO SCH (21:00)
[2022-02-12] MEDS ORDERED: traZODone 50 MG (DESYREL) TAB PO SCH (21:00)
[2022-02-12] MEDS ORDERED: NON-FORMULARY MEDICATION 1 EA EA (Dexlansoprazole (Dexilant) 60 MG) PO SCH (21:00)
[2022-02-12] MEDS: ACETAMINOPHEN 500 MG TAB (TYLENOL) PO SCH (21:14)
[2022-02-12] MEDS: PANTOPRAZOLE 40 MG (PROTONIX) TAB PO SCH (21:15)
[2022-02-12] MEDS: ALLOPURINOL 100 MG (ZYLOPRIM) TAB PO SCH (21:15)
[2022-02-12] MEDS: meTOprolol TARTRATE 50 MG (LOPRESSOR) TAB PO SCH (21:15)
[2022-02-13] VITALS (11 sets, daily range): BP systolic 128–185; BP diastolic 71–95
[2022-02-13] MEDS: AMPICILLIN/SULBACTAM 3 GM/NS 100 ML IVPB IV SCH ×4 (00:56→06:24)
[2022-02-13 05:40] LABS: BASOPHILS # (AUTO) 0.1 10^3/uL (0.0-0.1); BASOPHILS % (AUTO) 1 % (0-10); EOSINOPHILS # (AUTO) 0.1 10^3/uL (0.0-0.3); EOSINOPHILS % (AUTO) 1 % (0-10); HEMATOCRIT 45 % (40-54); HEMOGLOBIN 14.7 g/dL (13.3-17.7); LYMPHOCYTES # (AUTO) 1.5 10^3/uL (1.0-4.0); LYMPHOCYTES % (AUTO) 16 % (12-44); MEAN CORPUSCULAR HEMOGLOBIN 30 pg (25-34); MEAN CORPUSCULAR HGB CONC 33 g/dL (32-36); MEAN CORPUSCULAR VOLUME 91 fL (80-99); MEAN PLATELET VOLUME 9.6 fL (9.0-12.2); MONOCYTES # (AUTO) 0.7 10^3/uL (0.0-1.0); MONOCYTES % (AUTO) 8 % (0-12); NEUTROPHILS # (AUTO) 6.6 10^3/uL (1.8-7.8); NEUTROPHILS % (AUTO) 73 % (42-75); PLATELET COUNT 192 10^3/uL (130-400)
[2022-02-13 06:04] LABS: ALBUMIN 3.9 GM/DL (3.2-4.5); CALCIUM 9.4 MG/DL (8.5-10.1); MAGNESIUM 1.8 MG/DL (1.6-2.4); PHOSPHORUS 3.3 MG/DL (2.3-4.7); POTASSIUM 4.2 MMOL/L (3.6-5.0); TOTAL PROTEIN 6.8 GM/DL (6.4-8.2)
[2022-02-13] MEDS: MAGNESIUM 1 GM/100 ML IVPB 100 ML IV SCH (06:11)
[2022-02-13] MEDS: KCL 20 MEQ TAB (K-DUR) PO SCH (06:11)
[2022-02-13] MEDS: POTASSIUM CL 10MEQ/50ML IVPB 50 ML IV SCH (06:11)
[2022-02-13] MEDS: CATHETER FLUSH 10 ML SYR IVP SCH (06:24)
[2022-02-13] MEDS ORDERED: KCL 20 MEQ TAB (K-DUR) PO SCH (07:00)
[2022-02-13] MEDS: niCARdipine IV FOR DRIP 50 MG in NS (IVPB) 230 ML IV SCH (07:35)
[2022-02-13] MEDS: ALLOPURINOL 100 MG (ZYLOPRIM) TAB PO SCH (08:50)
[2022-02-13] MEDS: PANTOPRAZOLE 40 MG (PROTONIX) TAB PO SCH (08:51)
[2022-02-13] MEDS: meTOprolol TARTRATE 50 MG (LOPRESSOR) TAB PO SCH (08:51)
[2022-02-13] MEDS: ACETAMINOPHEN 500 MG TAB (TYLENOL) PO SCH (08:51)
[2022-02-13] MEDS ORDERED: FUROSEMIDE 40 MG (LASIX) TAB PO SCH (09:00)
[2022-02-13] MEDS ORDERED: ENOXAPARIN 40 MG/0.4 ML (LOVENOX) SYR SC SCH (09:00)
[2022-02-13] MEDS ORDERED: PATIENT MAY USE OWN MEDS, ALL MC SCH (09:00)
[2022-02-13] MEDS ORDERED: UBIDECARENONE 100 MG PO SCH (09:00)
[2022-02-13] MEDS ORDERED: NON-FORMULARY MEDICATION 1 EA EA (Potassium Chloride 20 MEQ) PO SCH (09:00)
[2022-02-13] MEDS ORDERED: lisINopril 40 MG (PRINIVIL) TABLET PO SCH (09:00)
[2022-02-13] MEDS ORDERED: ASPIRIN E.C. 81 MG (ECOTRIN) TAB PO SCH (09:00)
[2022-02-13] MEDS ORDERED: VITAMIN D3 25 MCG (1,000 UNITS) TABLET PO SCH (09:00)
[2022-02-13] MEDS ORDERED: ENOXAPARIN 150 MG/ML (LOVENOX) SYR SQ SCH (09:00)
[2022-02-13] MEDS ORDERED: RELABEL FOR HOME USE MC SCH (09:00)
[2022-02-13] MEDS ORDERED: cloNIDine 0.1 MG (CATAPRES) TAB PO SCH (09:00)
--- NOTE | 2022-02-13 09:14 | Cardiology Progress Note ---
Progress Note-Cardiology Events since last exam Date Seen by Provider: Feb 13, 2022 Time Seen by Provider: 09:11 Events since last exam I am following him due to his supraventricular tachycardia and heart failure. He has not had any further supraventricular tachycardia since he converted in the ER. He diuresed about 6 L with intravenous furosemide. His breathing is much improved. He denies peripheral edema. He denies chest pain, palpitations or syncope. He feels good enough to go home today. His notes that over the past few months he has been wheezing at times. He does not have any known history of pulmonary disease other than sleep apnea. Certain portions of this document may have been dictated utilizing voice recognition technology. Inherent to this technology, typographical and gramm atical errors may exist. As much as I am diligent to identify and correct these mistakes, some errors may remain in the document. Vitals Last set of Vitals Signs Vital Signs 02/12/22 02/12/22 02/13/22 02/13/22 00:37 09:37 08:38 10:00 Temp 36.3 Pulse 63 Resp 31 B/P (MAP) 181/85 (117) Pulse Ox 96 O2 Delivery Room Air O2 Flow Rate 1.00 FiO2 28 Labs Labs Laboratory Tests 02/13/22 05:23 Exam Vital Signs Vital Signs Date Time Temp Pulse Resp B/P (MAP) Pulse Ox O2 Delivery O2 Flow Rate FiO2 02/13/22 12:30 02/13/22 10:00 63 31 96 Room Air 02/13/22 08:38 36.3 02/12/22 09:37 1.00 02/12/22 00:37 28 Physical Exam General: Alert. No acute distress. He is obese. Eye: No xanthelasma. HENT: Normocephalic. Neck: Jugular venous pressure does not appear elevated. Respiratory: Lungs have some scattered wheezes bilaterally. Respirations are non-labored. Breath sounds are equal. Symmetrical chest wall expansion. Cardiovascular: Normal rate. Regular rhythm. 2/6 systolic ejection murmur. No gallop. No edema. Gastrointestinal: Soft. Normal bowel sounds. Skin: Warm. Dry. Neurologic: Alert and oriented to person, place, time. Cranial nerves 3-11 grossly intact. Psychiatric: Cooperative. Appropriate mood & affect. Labs Laboratory Tests Test 02/12/22 20:05 02/13/22 05:23 Range/Units Glucometer 147 H 70-110 MG/DL White Blood Count 9.0 4.3-11.0 10^3/uL Red Blood Count 4.96 4.30-5.52 10^6/uL Hemoglobin 14.7 13.3-17.7 g/dL Hematocrit 45 40-54 % Mean Corpuscular Volume 91 80-99 fL Mean Corpuscular Hemoglobin 30 25-34 pg Mean Corpuscular Hemoglobin Concent 33 32-36 g/dL Red Cell Distribution Width 14.6 H 10.0-14.5 % Platelet Count 192 130-400 10^3/uL Mean Platelet Volume 9.6 9.0-12.2 fL Immature Granulocyte % (Auto) 0 % Neutrophils (%) (Auto) 73 42-75 % Lymphocytes (%) (Auto) 16 12-44 % Monocytes (%) (Auto) 8 0-12 % Eosinophils (%) (Auto) 1 0-10 % Basophils (%) (Auto) 1 0-10 % Neutrophils # (Auto) 6.6 1.8-7.8 10^3/uL Lymphocytes # (Auto) 1.5 1.0-4.0 10^3/uL Monocytes # (Auto) 0.7 0.0-1.0 10^3/uL Eosinophils # (Auto) 0.1 0.0-0.3 10^3/uL Basophils # (Auto) 0.1 0.0-0.1 10^3/uL Immature Granulocyte # (Auto) 0.0 0.0-0.1 10^3/uL Sodium Level 141 135-145 MMOL/L Potassium Level 4.2 3.6-5.0 MMOL/L Chloride Level 104 98-107 MMOL/L Carbon Dioxide Level 21 21-32 MMOL/L Anion Gap 16 H 5-14 MMOL/L Blood Urea Nitrogen 14 7-18 MG/DL Creatinine 1.00 0.60-1.30 MG/DL Estimat Glomerular Filtration Rate 82 BUN/Creatinine Ratio 14 Glucose Level 134 H 70-105 MG/DL Calcium Level 9.4 8.5-10.1 MG/DL Corrected Calcium 9.5 8.5-10.1 MG/DL Phosphorus Level 3.3 2.3-4.7 MG/DL Magnesium Level 1.8 1.6-2.4 MG/DL Total Bilirubin 1.0 0.1-1.0 MG/DL Aspartate Amino Transf (AST/SGOT) 18 5-34 U/L Alanine Aminotransferase (ALT/SGPT) 26 0-55 U/L Alkaline Phosphatase 154 H 40-136 U/L Total Protein 6.8 6.4-8.2 GM/DL Albumin 3.9 3.2-4.5 GM/DL Diagnosis/Problems Diagnosis/Problems (1) Supraventricular tachycardia Assessment & Plan: He appears to have developed supraventricular tachycardia that resolved with adenosine in the emergency room. No signs of recurrence. I recommend he continue on metoprolol which he was taking at home for his coronary artery disease. (2) Acute on chronic heart failure with preserved ejection fraction (HFpEF) Status: Acute Assessment & Plan: Although his chest x-ray or chest CT did not show overt pulmonary edema, he had been having shortness of breath and his BNP was elevated at the time of admission. He may have some decompensation of his chronic heart failure with preserved ejection fraction. He improved with intravenous furosemide today and then I changed this back over to oral furosemide once a day. He may need to continue on this dose indefinitely. 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 (3) Hypertensive emergency Status: Acute Assessment & Plan: His blood pressure was elevated in the emergency room and he was started on intravenous nicardipine. I have restarted his regular outpatient medication and his blood pressure has improved. If his blood pressure becomes elevated again, we may need to make some additional adjustments to his antihypertensive medication. I should note, he was intolerant to amlodipine that caused severe peripheral edema. (4) Coronary artery disease without angina pectoris Status: Chronic Assessment & Plan: He does not seem to be having any overt angina. His troponin level was undetectable. Continue aspirin, beta-estrellita and statin medication. (5) Paroxysmal atrial fibrillation Assessment & Plan: He apparently had postoperative atrial fibrillation around the time of his previous coronary bypass surgery. The supraventricular tachycardia he had in the emergency room at the time of admission did not appear to be atrial fibrillation and also broke with adenosine which would not happen with atrial fibrillation. As such, there no strong indications for oral an ticoagulation at this time. (6) Mixed hyperlipidemia Status: Chronic Assessment & Plan: Continue statin medication. (7) Elevated d-dimer Status: Acute Assessment & Plan: I am not entirely sure what to make of the elevated D-dimer. His CT angiogram of the chest did not show any evidence of pulmonary emboli and his lower extremity ultrasound did not show any evidence of deep venous thrombosis. His troponin was undetectable which makes acute myocardial infarction extremely unlikely. Sometimes, we do see nonspecific elevation of the D-dimer without any definitive evidence of systemic thromboembolism. We can change the enoxaparin dosing over to prophylactic dosing. (8) Obesity Assessment & Plan: He needs to work on weight loss. Problem Qualifiers (1) Coronary artery disease without angina pectoris: Coronary Disease-Associated Artery/Lesion type: [place] artery [place] vs. transplanted heart: [place] heart Qualified Codes: I25.10 - Atherosclerotic heart disease of [place] coronary artery without angina pectoris ROXANNE JACOBS JR, MD Feb 13, 2022 09:13
--- NOTE | 2022-02-13 11:08 | Discharge Summary ---
Diagnosis/Chief Complaint Date of Admission Feb 11, 2022 at 22:30 Date of Discharge 02/13/22 Admission Diagnosis Admission Diagnosis See problem list Discharge Diagnosis See problem list Problems/Diagnosis: (1) Hypertensive emergency Assessment & Plan: - Patient initially placed in cardiac stepdown but HTN was not able to be controlled with PRN IV medications, patient was moved to ICU and started on cardene drip, cardiology consulted, appreciate recommendations 02/13: off Cardene, restarted home meds, plan to d/c home today with molly Ko Status: Acute (2) SVT (supraventricular tachycardia) Assessment & Plan: - Received 2 doses of adenosine in ER, rate is better controlled Status: Resolved Resolution Date/Time: 02/13/22 @ 11:04 (3) Acute on chronic heart failure with preserved ejection fraction (HFpEF) Assessment & Plan: - Continue diuresis with IV lasix, echo pending 02/13: Echo continues to show preserved EF Status: Acute (4) Atypical chest pain Assessment & Plan: - CE negative, resolved this AM Status: Resolved Resolution Date/Time: 02/13/22 @ 11:05 (5) Insulin dependent diabetes mellitus Assessment & Plan: - Restart home meds Status: Chronic (6) Hematuria Assessment & Plan: 02/13: Urology was consulted, will have outpatient Yefri barnes d/c Qualifiers: Qualified Codes: R31.9 - Hematuria, unspecified (7) NATE on CPAP Status: Chronic (8) Coronary artery disease without angina pectoris Qualifiers: Qualified Codes: I25.10 - Atherosclerotic heart disease of [place] coronary artery without angina pectoris Status: Chronic (9) Mixed hyperlipidemia Status: Chronic (10) Elevated d-dimer Assessment & Plan: - CTA and bilateral LE dopplers neg for clot, unsure of cause of elevation 02/13: Will schedule EGD as outpatient Status: Acute (11) DVT prophylaxis Assessment & Plan: - lovenox Status: Acute Chief Complaint/HPI Chief Complaint/HPI 66 yo M that presented with increasing shortness of breath and chest pain. Patient states that he has been having increasing LE swelling over the last few weeks. He had increased lasix last week per cardiology for 4-5 days and that improved the swelling some but it has come back. Last night he was unable to c atch his breath and his who is a nurse states that he was breathing >30 times per min and brought him to the ER. He does not weight himself at home so is unsure about any acute weight gain from fluid. Denies missing any of his cardiac medications. Discharge Summary-Simple/Stand Consultations Dr Bonilla: Cardiology Dr Kaufman: Urology eICU Discharge Physical Examination Allergies: Coded Allergies: amiodarone (Verified Allergy, Severe, Anaphylaxis, 10/08/21) SYSTEMIC amlodipine (Verified Allergy, Unknown, leg swelling, 02/12/22) oxycodone (Verified Allergy, Unknown, LETHARGIC, 10/08/21) Vitals & I&Os Vital Sign - Last 12Hours Date Time Temp Pulse Resp B/P (MAP) Pulse Ox O2 Delivery O2 Flow Rate FiO2 02/13/22 10:00 63 31 181/85 (117) 96 Room Air 02/13/22 08:38 36.3 02/12/22 09:37 1.00 02/12/22 00:37 28 Intake and Output 02/13/22 00:00 Intake Total 900 ml Output Total 1050 ml Balance -150 ml General Appearance: Alert, Oriented X3, No Acute Distress Respiratory: Clear to Auscultation, Normal Air Movement Cardiovascular: Regular Rate, No Murmurs Abdominal: Normal Bowel Sounds, Soft, No Tenderness, No Masses Extremities: Other (1+ pitting edema with chronic venous statis changes) Neuro: Normal Speech, Sensation Intact, Cranial Nerves 3-12 NL Psych/Mental Status: Mood NL Hospital Course See final discharge diagnosis. Discussion & Recommendations 66 yo M that presented with chest pain and shortness of breath. Patient was moved to ICU after blood pressure was unable to be controlled with PRN IV meds. Started on cardene drip and was able to titrate off. New onset hematuria and he will f.u with Shae as outpatient. Discharge Condition at discharge stable Instructions to patient/family Please see electronic discharge instructions given to patient. Discharge Medications Reviewed and agree with Discharge Medication list on patient's Discharge Instruction sheet Clinical Quality Measures AMI/AHF: ASA po Prior to arrival: JEROME Esteves MD Feb 13, 2022 11:08
[2022-02-13] MEDS ORDERED: CLN.1T PO (11:29)
--- NOTE | 2022-02-13 11:30 | Discharge Summary ---
Discharge [facility] Reconcile Patient Problems Problems Reviewed?: Yes Discharge Medications New, Converted or Re-Newed RX: Transmitted to Pharmacy Changed Medications: Clonidine HCl (Clonidine HCl) 0.1 Mg Tablet 0.1 MG PO BID, #60 TAB (Changed from: DAILY) Continued Medications: Acetaminophen (Tylenol Extra Strength) 500 Mg Tablet 1000 MG PO BID, TAB TAKES 2 (500MG) TABS Allopurinol (Allopurinol) 100 Mg Tablet 100 MG PO BID, TAB Aspirin (Aspirin EC) 81 Mg Tablet.dr 81 MG PO DAILY, TAB Atorvastatin Calcium (Atorvastatin Calcium) 80 Mg Tablet 80 MG PO HS, TAB Brexpiprazole (Rexulti) 1 Mg Tablet 1 MG PO DAILY, TAB Cholecalciferol (Vitamin D3) (Vitamin D3) 25 Mcg (1000 Unit) Tablet 25 MCG PO DAILY, TAB Desvenlafaxine Succinate (Desvenlafaxine Succinate ER) 50 Mg Tab.er.24h 50 MG PO HS, TAB Dexlansoprazole (Dexilant) 60 Mg Cap.dr.bp 60 MG PO BID Furosemide (Furosemide) 40 Mg Tablet 40 MG PO DAILY, TAB Lisinopril (Lisinopril) 40 Mg Tablet 40 MG PO DAILY, TAB Metoprolol Tartrate (Metoprolol Tartrate) 100 Mg Tablet 100 MG PO BID, TAB Potassium Chloride (Potassium Chloride) 20 Meq Tablet.er 20 MEQ PO DAILY, TAB TAKES WITH FUROSEMIDE. IF FREQUEMCY CHANGES ON FUROSEMIDE THEN POTASSIUM CHANGES WELL Sennosides/Docusate Sodium (Senna S Tablet) 8.6 Mg-50 Mg Tablet 1 EACH PO HS, TAB Tramadol HCl (Tramadol HCl) 50 Mg Tablet 50 MG PO DAILY, TAB Tramadol HCl (Tramadol HCl) 50 Mg Tablet 100 MG PO HS, TAB TAKES 2 (50MG) TABS Trazodone HCl (Trazodone HCl) 50 Mg Tablet 50 MG PO HS, TAB Ubidecarenone (Co Q10) 200 Mg Capsule 200 MG PO DAILY, CAP Discontinued Medications: Sulfamethoxazole/Trimethoprim (Bactrim 400-80 mg Tablet) 1 Each Tablet 0.5 EACH PO HS, TAB Patient Instructions Goal/Follow Up Appt: Tulio Askew 1-2 weeks Activity & Diet Discharge Diet: ADA Diet, Cardiac Diet Activity as Tolerated: Yes JEROME ASKEW MD Feb 13, 2022 11:30
== END 2022-02-13 12:30 | disposition home or self-care (01) | DRG 291 ==
LOC: EDUNIT# 19:01 → ER 19:03 → CSD 22:30 → ICU 02-12 02:44
PROVIDERS: ADMIT Family Medicine; ATTEND Internal Medicine
DX: I11.0 Hypertensive heart disease with heart failure (principal); I50.33 Acute on chronic diastolic (congestive) heart failure; I16.1 Hypertensive emergency; I47.1 Supraventricular tachycardia; L03.119 Cellulitis of unspecified part of limb; E66.9 Obesity, unspecified; I25.10 Atherosclerotic heart disease of native coronary artery without angina pectoris; E11.9 Type 2 diabetes mellitus without complications; Z95.1 Presence of aortocoronary bypass graft; Z79.82 Long term (current) use of aspirin; E11.42 Type 2 diabetes mellitus with diabetic polyneuropathy; Z79.899 Other long term (current) drug therapy; G40.909 Epilepsy, unspecified, not intractable, without status epilepticus; N40.0 Benign prostatic hyperplasia without lower urinary tract symptoms; K21.9 Gastro-esophageal reflux disease without esophagitis; M19.90 Unspecified osteoarthritis, unspecified site; Z20.822 Contact with and (suspected) exposure to COVID-19; G89.29 Other chronic pain; M54.9 Dorsalgia, unspecified; F32.A Depression, unspecified; R09.02 Hypoxemia; G47.33 Obstructive sleep apnea (adult) (pediatric); M10.9 Gout, unspecified; K58.9 Irritable bowel syndrome, unspecified; R07.89 Other chest pain; E78.2 Mixed hyperlipidemia; R31.0 Gross hematuria; I48.0 Paroxysmal atrial fibrillation; Z68.35 Body mass index [BMI] 35.0-35.9, adult
CPT/HCPCS: 36415; 71045; 71275; 80048; 80053; 80061; 82947; 83605; 83615; 83735; 83880; 84100; 84484; 85025; 85379; 85610; 85730; 86141; 87081; 87636; 93005; 93041; 93306; 93970

== ENCOUNTER → 2022-02-19 | Outpatient (CLI) | payer OTHER, MEDICARE ==
[~2022-02-19] MED LIST changes: +CHOL10004 PO; +CLN.1T PO; +DESV50TA18 PO; +LISI40TA9 PO; +POTA-51 PO
--- NOTE | 2022-02-19 13:43 | Diagnostic Imaging Report ---
PROCEDURE: US right lower extremity venous. TECHNIQUE: Multiple real-time grayscale images were obtained over the right lower extremity in various projections. Additional spectral analysis and color Doppler duplex images were also obtained. INDICATION: Leg pain and swelling. FINDINGS: The previous bilateral lower extremity venous Doppler exam performed on 02/12/2022 failed to show any sign of a deep venous thrombosis. On this study, there is still generally good blood flow and compressibility at all levels of the deep venous system of the right lower extremity. There is still no evidence for deep venous thrombosis. IMPRESSION: There is still no evidence for deep venous thrombosis of the right lower extremity. Dictated by: Dictated on workstation # [id number]
== END ==
LOC: RAD 12:45
PROVIDERS: ATTEND Family Medicine
DX: R79.89 Other specified abnormal findings of blood chemistry (principal); M79.604 Pain in right leg; M79.89 Other specified soft tissue disorders

== ENCOUNTER → 2022-03-24 | Outpatient (CLI) | payer OTHER, MEDICARE ==
[2022-03-24 07:22] LABS: CALCIUM 9.9 MG/DL (8.5-10.1); CREATININE SERUM 1.13 MG/DL (0.60-1.30); MAGNESIUM 1.5 MG/DL (1.6-2.4); POTASSIUM 4.6 MMOL/L (3.6-5.0)
== END ==
LOC: LAB 06:46
PROVIDERS: ATTEND Nurse Practitioner Family
DX: I50.33 Acute on chronic diastolic (congestive) heart failure (principal)
CPT/HCPCS: 36415; 80048; 83735

== ENCOUNTER → 2022-04-06 | Outpatient (CLI) | payer OTHER, MEDICARE ==
[2022-04-06 07:35] LABS: HEMATOCRIT 47 % (40-54); HEMOGLOBIN 15.1 g/dL (13.3-17.7); MEAN CORPUSCULAR HEMOGLOBIN 29 pg (25-34); MEAN CORPUSCULAR HGB CONC 32 g/dL (32-36); MEAN CORPUSCULAR VOLUME 89 fL (80-99); MEAN PLATELET VOLUME 9.7 fL (9.0-12.2); PLATELET COUNT 188 10^3/uL (130-400); WHITE BLOOD COUNT 7.8 10^3/uL (4.3-11.0)
[2022-04-06 07:50] LABS: ALBUMIN 4.3 GM/DL (3.2-4.5); POTASSIUM 4.5 MMOL/L (3.6-5.0)
[2022-04-06 07:51] LABS: CALCIUM 9.6 MG/DL (8.5-10.1)
[2022-04-06 07:53] LABS: TOTAL PROTEIN 7.2 GM/DL (6.4-8.2)
[2022-04-06 07:54] LABS: BILIRUBIN,TOTAL 0.8 MG/DL (0.1-1.0)
[2022-04-06 07:56] LABS: CREATININE SERUM 1.06 MG/DL (0.60-1.30)
== END ==
LOC: LAB 07:05
PROVIDERS: ATTEND Internal Medicine Cardiovascular Disease
DX: I50.33 Acute on chronic diastolic (congestive) heart failure (principal); I48.0 Paroxysmal atrial fibrillation; I25.10 Atherosclerotic heart disease of native coronary artery without angina pectoris; I65.23 Occlusion and stenosis of bilateral carotid arteries; I10 Essential (primary) hypertension; G47.33 Obstructive sleep apnea (adult) (pediatric); E78.2 Mixed hyperlipidemia; M79.89 Other specified soft tissue disorders; Z95.1 Presence of aortocoronary bypass graft; Z95.818 Presence of other cardiac implants and grafts
CPT/HCPCS: 36415; 80053; 83880; 85027

== ENCOUNTER 2022-04-24 19:50 | Inpatient (IN) | payer OTHER, MEDICARE ==
[~2022-04-24] VITALS: Ht 182.9 cm; Wt 119.7 kg
[2022-04-24] MEDS ORDERED: DOXA4TAB PO (20:20)
[2022-04-24 20:42] LABS: EOSINOPHILS # (AUTO) 0.1 10^3/uL (0.0-0.3); EOSINOPHILS % (AUTO) 2 % (0-10); MEAN PLATELET VOLUME 9.5 fL (9.0-12.2)
[2022-04-24 20:43] LABS: BASOPHILS # (AUTO) 0.1 10^3/uL (0.0-0.1); BASOPHILS % (AUTO) 1 % (0-10); HEMATOCRIT 40 % (40-54); HEMOGLOBIN 13.3 g/dL (13.3-17.7); LYMPHOCYTES # (AUTO) 0.7 10^3/uL (1.0-4.0); LYMPHOCYTES % (AUTO) 12 % (12-44); MEAN CORPUSCULAR HEMOGLOBIN 29 pg (25-34); MEAN CORPUSCULAR HGB CONC 33 g/dL (32-36); MEAN CORPUSCULAR VOLUME 88 fL (80-99); MONOCYTES # (AUTO) 0.6 10^3/uL (0.0-1.0); MONOCYTES % (AUTO) 9 % (0-12); NEUTROPHILS # (AUTO) 4.8 10^3/uL (1.8-7.8); NEUTROPHILS % (AUTO) 76 % (42-75); PLATELET COUNT 132 10^3/uL (130-400); WHITE BLOOD COUNT 6.3 10^3/uL (4.3-11.0)
[2022-04-24] MEDS ORDERED: NITROGLYCERIN 0.4 MG SL TABS BTL 25'S SL PRN ×2 (20:45→21:00)
[2022-04-24] MEDS ORDERED: ASPIRIN 81 MG CHEW (CHILDREN'S ASA) PO ONE ×2 (20:45→21:00)
--- NOTE | 2022-04-24 20:56 | Diagnostic Imaging Report ---
EXAM: Chest 1 view, AP/PA only. INDICATION: Chest pain. Hypertension. COMPARISON: 02/11/2022. FINDINGS: Stable cardiomegaly with mild pulmonary vascular congestion. No focal pulmonary opacity. No pleural effusion or pneumothorax. Sternotomy with CABG. IMPRESSION: Stable cardiomegaly with mild pulmonary vascular congestion. No acute cardiopulmonary finding. Dictated by: Dictated on workstation # [id number]
[2022-04-24 20:57] LABS: BILIRUBIN,TOTAL 0.7 MG/DL (0.1-1.0); CALCIUM 9.2 MG/DL (8.5-10.1); CREATININE SERUM 1.23 MG/DL (0.60-1.30); MAGNESIUM 1.5 MG/DL (1.6-2.4); TOTAL PROTEIN 6.7 GM/DL (6.4-8.2)
[2022-04-24 20:58] LABS: BILIRUBIN,URINE NEGATIVE (NEGATIVE); CLARITY,URINE CLEAR; COLOR,URINE YELLOW; GLUCOSE, URINE (UA) NEGATIVE (NEGATIVE); KETONES,URINE NEGATIVE (NEGATIVE); LEUKOCYTE ESTERASE ,URINE NEGATIVE (NEGATIVE); NITRITE,URINE NEGATIVE (NEGATIVE); PH,URINE 5.5 (5-9); PROTEIN,URINE NEGATIVE (NEGATIVE)
[2022-04-24 21:35] LABS: POTASSIUM 4.1 MMOL/L (3.6-5.0)
[2022-04-24 21:53] LABS: BACTERIA,URINE NEGATIVE /HPF
[2022-04-24] MEDS ORDERED: MAGNESIUM 1 GM/100 ML IVPB 100 ML IV ONE (22:15)
[2022-04-24] MEDS ORDERED: RT-ALBUTEROL HFA 8.5 GM INHALER IH STA (23:08)
[2022-04-24] MEDS ORDERED: doxAzosin 4 MG (CARDURA) TAB PO STA (23:29)
[2022-04-24] MEDS ORDERED: FUROSEMIDE 40 MG/4 ML INJ (LASIX) IVP ONE (23:30)
[2022-04-24] MEDS ORDERED: TRIM/SULFAMETH 160/800 (SEPTRA DS) TAB PO ONE (23:30)
[2022-04-24] MEDS ORDERED: lisINopril 20 MG (PRINIVIL) TABLET PO ONE (23:30)
[2022-04-24] MEDS ORDERED: KCL 20 MEQ TAB (K-DUR) PO ONE (23:30)
[2022-04-24] MEDS ORDERED: meTOprolol TARTRATE 50 MG (LOPRESSOR) TAB PO ONE (23:30)
[2022-04-24] MEDS ORDERED: ALLOPURINOL 100 MG (ZYLOPRIM) TAB PO ONE (23:30)
[2022-04-24] MEDS ORDERED: NITROGLYCERIN 2% OINT 1 GM UNIT DOSE PACKET TOP ONE (23:30)
--- NOTE | 2022-04-24 23:43 | ED Chest Pain ---
General Chief Complaint: Cardiac/General Problems Stated Complaint: HIGH BLOOD PRESSURE, SOB Nursing Triage Note: PT AMBULATORY TO ROOM WITH PT . PT STATES HE HAS HAD EXERTIONAL SOB AND ELEVATED BP SINCE YESTERDAY. PT STATES HE WAS GIVEN AN EXTRA DOSE OF LASIX AND A CLONIDINE TODAY AROUND 1600. PT ALSO REPORTS PT HAD SLIGHT FEVER YESTERDAY, BUT ATTRIBUTES THIS TO COVID AND FLU SHOTS RECIEVED THIS WEEK. PT REPORT BLOOD PRESSURES AT HOME OF 220S/110S. PT ALSO COMPLAINS OF HEADACHE AND INTERMITTENT CHEST PAIN THE LAST TWO DAYS. PT A&OX4, SPEECH NORMAL ON ARRIVAL Source: patient, old records Exam Limitations: no limitations History of Present Illness Date Seen by Provider: Apr 24, 2022 Time Seen by Provider: 20:22 Initial Comments This is 66-year-old gentleman presents to the emergency room with complaints of dyspnea, especially with exertion, chest pain, and significant hypertension with blood pressure as high as 225/118 at home. He is accompanied by his who provides much of his history. He has had a recent admission for treatment of un controlled hypertension, SVT, fluid overload, heart failure, and chest pain. He sees Dr. Cr on a regular basis to adjust medications as needed. His gave him clonidine 0.2 mg and an additional Lasix 40 mg dose at 1700. Symptoms have improved somewhat since then. He received his third COVID-19 booster 2 days ago. Yesterday he had subjective fever. He has subjective fever again today and feels warm to the touch. He has chronic lower extremity edema which has not necessarily worsened in the past few days. Pain is 4 out of 10 on initial assessment. notes some wheezing with exertion. Patient has no known asthma or COPD. Allergies and Home Medications Allergies Coded Allergies: amiodarone (Verified Allergy, Severe, Anaphylaxis, 10/08/21) SYSTEMIC amlodipine (Verified Allergy, Unknown, leg swelling, 02/12/22) oxycodone (Verified Allergy, Unknown, LETHARGIC, 10/08/21) Patient Home Medication List Home Medication List Reviewed: Yes Acetaminophen (Tylenol Extra Strength) 500 Mg Tablet, 1,000 MG PO BID, (Reported) Entered as Reported by: SHERYL PIÑA on 03/22/19 3339 Allopurinol (Allopurinol) 100 Mg Tablet, 100 MG PO BID, (Reported) Entered as Reported by: SHERYL PIÑA on 03/22/19 1346 Aspirin (Aspirin EC) 81 Mg Tablet.dr, 81 MG PO DAILY, (Reported) Entered as Reported by: GIL CHRISTINE on 02/12/22 1026 Atorvastatin Calcium (Atorvastatin Calcium) 80 Mg Tablet, 80 MG PO HS, (Reported) Entered as Reported by: GIL CHRISTINE on 02/12/22 1026 Brexpiprazole (Rexulti) 1 Mg Tablet, 1 MG PO DAILY, (Reported) Entered as Reported by: INES DENTON on 10/08/21 1341 Cholecalciferol (Vitamin D3) (Vitamin D3) 25 Mcg (1000 Unit) Tablet, 25 MCG PO DAILY, (Reported) Entered as Reported by: GIL CHRISTIEN on 02/12/22 1026 Desvenlafaxine Succinate (Desvenlafaxine Succinate ER) 50 Mg Tab.er.24h, 50 MG PO HS, (Reported) Entered as Reported by: GIL CHRISTINE on 02/12/22 1026 Dexlansoprazole (Dexilant) 60 Mg Cap.bp, 60 MG PO BID, (Reported) Entered as Reported by: SHERYL PIÑA on 03/22/19 1354 Doxazosin Mesylate (Cardura) 4 Mg Tablet, 4 MG PO BID, (Reported) Entered as Reported by: FERNANDO WESLEY on 04/24/222019 Last Action: New Order Furosemide (Furosemide) 40 Mg Tablet, 40 MG PO DAILY, (Reported) Entered as Reported by: SHERYL PIÑA on 03/22/19 1346 Lisinopril (Lisinopril) 40 Mg Tablet, 40 MG PO HS, (Reported) Entered as Reported by: GIL CHRISTINE on 02/12/22 1026 Last Action: Edited Metoprolol Tartrate (Metoprolol Tartrate) 100 Mg Tablet, 100 MG PO BID, (Reported) Entered as Reported by: SHERYL PIÑA on 03/22/19 1346 Potassium Chloride (Potassium Chloride) 20 Meq Tablet.er, 20 MEQ PO DAILY, (Reported) Entered as Reported by: GIL CHRISTINE on 02/12/22 1026 Sennosides/Docusate Sodium (Senna S Tablet) 8.6 Mg-50 Mg Tablet, 1 EACH PO HS, (Reported) Entered as Reported by: GIL CHRISTINE on 02/12/22 1026 Tramadol HCl (Tramadol HCl) 50 Mg Tablet, 50 MG PO DAILY, (Reported) Entered as Reported by: SHERYL PIÑA on 03/22/19 1354 Tramadol HCl (Tramadol HCl) 50 Mg Tablet, 100 MG PO HS, (Reported) Entered as Reported by: MAYI PABLO on 10/16/20 0916 Trazodone HCl (Trazodone HCl) 50 Mg Tablet, 50 MG PO HS, (Reported) Entered as Reported by: ALEKSANDER GODDARD on 06/28/19 1054 Ubidecarenone (Co Q10) 200 Mg Capsule, 200 MG PO DAILY, (Reported) Entered as Reported by: SHERYL PIÑA on 03/22/19 1354 Discontinued Medications Clonidine HCl (Clonidine HCl) 0.1 Mg Tablet, 0.1 MG PO BID Discontinued Reason: No Longer Taking Prescribed by: JEROME GEORGE on 02/13/22 1129 Last Action: Discontinued Review of Systems Review of Systems Constitutional: no symptoms reported EENTM: No Symptoms Reported Respiratory: See HPI Cardiovascular: See HPI Gastrointestinal: No Symptoms Reported Genitourinary: No Symptoms Reported Skin: no symptoms reported Psychiatric/Neurological: No Symptoms Reported Endocrine: No Symptoms Reported Past Voseepj-Sfmaos-Pblqyx Hx Patient Social History Tobacco Use?: No Use of E-Cig and/or Vaping dev: No Substance use?: No Alcohol Use?: No Immunizations Up To Date Tetanus Booster (TDap): Unknown PED Vaccines UTD: Yes Influenza Vaccine Up-to-Date: Yes; Up-to-Date First/Initial COVID19 Vaccinat: 09/06/20 Second COVID19 Vaccination Mason: 10/04/20 Third COVID19 Vaccination Date: APRIL 2021 Seasonal Allergies Seasonal Allergies: Yes Past Medical History Surgery/Hospitalization HX: DIABETIC NO INSULIN, NEUROPATHY, HTN, QUADRUPLE BYPASS, GOUT, DEPRESSION, BARRETS ESOPHAGUS, ALCOHOLISM RECOVERY Surgeries: Yes (CTR SAARHI,ANT COMPARTMENT SYNDROM R LEG, BILAT knee scope,LOOP RECORDER) Abdominal (Hernia), CABG, Gallbladder, Orthopedic (Rotator cuff x3), Tonsillectomy Respiratory: Yes (SLEEP APNEA-USES CPAP, DYSPNEA) Pneumonia, Sleep Apnea Currently Using CPAP: Yes Currently Using BIPAP: No Cardiac: Yes (2 STENTS-CABG x 4, HAS LOOP RECORDER, EDEMA) Atrial Fibrillation, Chronic Edema/Swelling, Coronary Artery Disease, High Cholesterol, Hypertension Neurological: No ( 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) Seizure Disorder Reproductive Disorders: No Sexually Transmitted Disease: No HIV/AIDS: No Genitourinary: Yes (renal issues after CABG, ERECTYLE DYSFUNCTION) Benign Prostatic Hyperpl Gastrointestinal: Yes (UMB HERNIA REPAIR) Gastroesophageal Reflux, Hiatal Hernia Musculoskeletal: Yes (RIB FX) Degenerate Disk Disease, Arthritis, Chronic Back Pain, Fractures, Gout Endocrine: Yes Diabetes, Non-Insulin dep HEENT: No (cataracts removed) Loss of Vision: Denies Hearing Impairment: Denies Cancer: No Psychosocial: Yes Sleep Difficulties, Anxiety, Depression Integumentary: Yes (hx CELLULITIS LEFT LOWER EXTREMITY) Blood Disorders: No Adverse Reaction/Blood Tranf: Yes (fever-lab stated he had an adverse reaction ) Family Medical History Cardiovascular disease 19 FATHER 19 MOTHER Diabetes mellitus 19 FATHER 19 MOTHER G8 BROTHER Hypertension 19 FATHER Physical Exam Vital Signs Vital Signs - First Documented 04/24/22 20:00 Temp 37.7 Pulse 77 Resp 27 B/P (MAP) 171/83 (112) Pulse Ox 95 Capillary Refill : Height, Weight, BMI Height: 6'0.00" Weight: 247lbs. 0.0oz. 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 Norm as Tested Skin: Normal Color, Warm/Dry Focused Exam Lactate Level 04/24/22 21:06: Lactic Acid Level 1.59 Lactic Acid Level Laboratory Tests Test 04/24/22 21:06 Lactic Acid Level 1.59 MMOL/L (0.50-2.00) Progress/Results/Core Measures Results/Orders Lab Results Laboratory Tests Test 04/24/22 20:08 04/24/22 20:50 04/24/22 20:54 04/24/22 21:06 Range/Units White Blood Count 6.3 4.3-11.0 10^3/uL Red Blood Count 4.60 4.30-5.52 10^6/uL Hemoglobin 13.3 13.3-17.7 g/dL Hematocrit 40 40-54 % Mean Corpuscular Volume 88 80-99 fL Mean Corpuscular Hemoglobin 29 25-34 pg Mean Corpuscular Hemoglobin Concent 33 32-36 g/dL Red Cell Distribution Width 13.9 10.0-14.5 % Platelet Count 132 130-400 10^3/uL Mean Platelet Volume 9.5 9.0-12.2 fL Immature Granulocyte % (Auto) 0 % Neutrophils (%) (Auto) 76 H 42-75 % Lymphocytes (%) (Auto) 12 12-44 % Monocytes (%) (Auto) 9 0-12 % Eosinophils (%) (Auto) 2 0-10 % Basophils (%) (Auto) 1 0-10 % Neutrophils # (Auto) 4.8 1.8-7.8 10^3/uL Lymphocytes # (Auto) 0.7 L 1.0-4.0 10^3/uL Monocytes # (Auto) 0.6 0.0-1.0 10^3/uL Eosinophils # (Auto) 0.1 0.0-0.3 10^3/uL Basophils # (Auto) 0.1 0.0-0.1 10^3/uL Immature Granulocyte # (Auto) 0.0 0.0-0.1 10^3/uL Percent Immature Platelet Fraction 2.0 0.0-7.6 % Prothrombin Time 14.0 12.2-14.7 SEC INR Comment 1.0 0.8-1.4 Activated Partial Thromboplast Time 27 24-35 SEC Sodium Level 138 135-145 MMOL/L Potassium Level 4.1 3.6-5.0 MMOL/L Chloride Level 103 98-107 MMOL/L Carbon Dioxide Level 23 21-32 MMOL/L Anion Gap 12 5-14 MMOL/L Blood Urea Nitrogen 20 H 7-18 MG/DL Creatinine 1.23 0.60-1.30 MG/DL Estimat Glomerular Filtration Rate 64 BUN/Creatinine Ratio 16 Glucose Level 143 H 70-105 MG/DL Calcium Level 9.2 8.5-10.1 MG/DL Corrected Calcium 9.2 8.5-10.1 MG/DL Magnesium Level 1.5 L 1.6-2.4 MG/DL Total Bilirubin 0.7 0.1-1.0 MG/DL Aspartate Amino Transf (AST/SGOT) 24 5-34 U/L Alanine Aminotransferase (ALT/SGPT) 30 0-55 U/L Alkaline Phosphatase 136 40-136 U/L Myoglobin 76.6 10.0-92.0 NG/ML Troponin I < 0.028 <0.028 NG/ML Total Protein 6.7 6.4-8.2 GM/DL Albumin 4.0 3.2-4.5 GM/DL Urine Color YELLOW Urine Clarity CLEAR Urine pH 5.5 5-9 Urine Specific [place] 1.010 L 1.016-1.022 Urine Protein NEGATIVE NEGATIVE Urine Glucose (UA) NEGATIVE NEGATIVE Urine Ketones NEGATIVE NEGATIVE Urine Nitrite NEGATIVE NEGATIVE Urine Bilirubin NEGATIVE NEGATIVE Urine Urobilinogen 0.2 < = 1.0 MG/DL Urine Leukocyte Esterase NEGATIVE NEGATIVE Urine RBC (Auto) NEGATIVE NEGATIVE Urine RBC NONE /HPF Urine WBC NONE /HPF Urine Squamous Epithelial Cells NONE /HPF Urine Crystals NONE /LPF Urine Bacteria NEGATIVE /HPF Urine Casts NONE /LPF Urine Mucus NEGATIVE /LPF Urine Culture Indicated NO Influenza Type A (RT-PCR) Not Detected Not Detecte Influenza Type B (RT-PCR) Not Detected Not Detecte SARS-CoV-2 RNA (RT-PCR) Not Detected Not Detecte Lactic Acid Level 1.59 0.50-2.00 MMOL/L Test 04/24/22 21:42 04/24/22 22:21 Range/Units C-Reactive Protein High Sensitivity 1.78 H 0.00-0.50 MG/DL B-Type Natriuretic Peptide 298.4 H <100.0 PG/ML Procalcitonin 0.06 <0.10 NG/ML Troponin I < 0.028 <0.028 NG/ML My Orders Orders - BLANCA HOPPER MD Ekg Tracing (04/24/22 20:03) Cbc With Automated Diff (04/24/22 20:20) Magnesium (04/24/22 20:20) Chest 1 View, Ap/Pa Only (04/24/22 20:20) Comprehensive Metabolic Panel (04/24/22 20:20) Myoglobin Serum (04/24/22 20:20) Protime With Inr (04/24/22 20:20) Partial Thromboplastin Time (04/24/22 20:20) O2 (04/24/22 20:20) Monitor-Rhythm Ecg Trace Only (04/24/22 20:20) Lipid Panel (04/25/22 06:00) Ed Iv/Invasive Line Start (04/24/22 20:20) Troponin I [place] (04/24/22 20:20) Bnp Tena (04/24/22 20:43) Hs C Reactive Protein (04/24/22 20:43) Blood Culture (04/24/22 20:43) Sputum Culture (04/24/22 20:43) Urinalysis (04/24/22 20:43) Urine Culture (04/24/22 20:43) Vital Signs Adult Sepsis Patie Q15M (04/24/22 20:43) Remove Rings In Anticipation O (04/24/22 20:43) Lactic Acid Analyzer (04/24/22 20:43) Procalcitonin (Pct) (04/24/22 20:43) Covid 19 Inhouse Test (04/24/22 20:43) Influenza A And B By Pcr (04/24/22 20:43) Nitroglycerin 0.4 Mg Btl 25's (Nitrostat (04/24/22 20:45) Aspirin Chewable Tablet (Baby Aspirin Ch (04/24/22 20:45) Nitroglycerin 0.4 Mg Btl 25's (Nitrostat (04/24/22 21:00) Aspirin Chewable Tablet (Baby Aspirin Ch (04/24/22 21:00) Magnesium 1 Gm/100 Ml Ivpb (Magnesium Man (04/24/22 22:15) Troponin I Tena (04/24/22 22:15) Albuterol Inhaler (Albuterol) (04/24/22 23:08) Furosemide Injection (Lasix Injection) (04/24/22 23:30) Nitroglycerin Ointment (Nitrobid Ointme (04/24/22 23:30) Potassium Chloride (Tablet) (K Dur Table (04/24/22 23:30) Medications Given in ED Current Medications Medications Dose Ordered Sig/Grace Route Start Time Stop Time Status Last Admin Dose Admin Aspirin 243 mg ONCE ONCE PO 04/24/22 21:00 04/24/22 21:01 DC 04/24/22 21:01 243 MG Magnesium Sulfate/ Dextrose 100 ml @ 100 mls/hr ONCE ONCE IV 04/24/22 22:15 04/24/22 23:14 DC 04/24/22 22:19 100 MLS/HR Nitroglycerin 0.4 mg UD PRN SL 04/24/22 20:45 04/25/22 07:21 DC 04/24/22 21:01 0.4 MG Vital Signs/I&O 04/24/22 20:00 Temp 37.7 Pulse 77 Resp 27 B/P (MAP) 171/83 (112) Pulse Ox 95 04/25/22 00:00 Intake Total 100 ml Balance 100 ml Blood Pressure Mean: 112 Progress Progress Note : Progress Note Patient was interviewed and examined. He was treated with aspirin and nitroglycerin. Nitroglycerin completely resolved his pain. He had some initial improvement in blood pressure but that began to rebound as time passed. I discussed the situation with Dr. Granado who recommended a nitroglycerin patch and use of clonidine as needed for further blood pressure management. He recommended restarting his home medications which were ordered in the ER. We discussed CODE STATUS at the time of admission and patient requested to be a full code. Dr. Barrios excepts admission. Although patient has no history of asthma or COPD, he was noted to be wheezing on exam. Albuterol was ordered. Initial ECG Impression Date: Apr 24, 2022 Initial ECG Impression Time: 20:01 Initial ECG Rate: 68 Initial ECG Rhythm: Normal Sinus Initial ECG Intervals: Normal Initial ECG Impression: Normal Comment Sinus rhythm with no ST elevation or depression. No abnormal intervals or axis deviation. Diagnostic Imaging Diagonstic Imaging: Xray Plain Films/CT/US/NM/MRI: chest Comments NAME: DWIGHT MAC MED REC#: [id number] PT STATUS: REG ER : 1955 PHYSICIAN: BLANCA HOPPER MD ADMIT DATE: 04/24/22/ER Signed Date of Exam:04/24/22 CHEST 1 VIEW, AP/PA ONLY EXAM: Chest 1 view, AP/PA only. INDICATION: Chest pain. Hypertension. COMPARISON: 02/11/2022. FINDINGS: Stable cardiomegaly with mild pulmonary vascular congestion. No focal pulmonary opacity. No pleural effusion or pneumothorax. Sternotomy with CABG. IMPRESSION: Stable cardiomegaly with mild pulmonary vascular congestion. No acute cardiopulmonary finding. Dictated by: Dictated on workstation # [id number] Dict: 04/24/222052 Trans: 04/24/222318 [facility] [id number] Interpreted by: PHILIP SEO MD Electronically signed by: PHILIP SEO MD 04/24/229 Departure Communication (Admissions) Time/Spoke to Admitting Phy: 23:20 Dr. Barrios Time/Spoke to Consulting Phy: 23:10 Dr. Granado Impression Primary Impression: Hypertensive urgency Additional Impressions: Chest pain Qualified Codes: R07.9 - Chest pain, unspecified Wheezing Disposition: ADMITTED INPATIENT Condition: Improved Admissions Decision to Admit Reason: Admit from ER (General) Decision to Admit/Date: Apr 24, 2022 Time/Decision to Admit Time: 23:10 Departure-Patient Inst. Referrals: JEROME GEORGE MD (PCP/Family) Primary Care Physician Copy Copies To 1: YISSEL CR MD FAC FAC CCDS Copies To 2: JEROME GEORGE MD, JOSHUA T MD Apr 24, 2022 23:43
[2022-04-25] VITALS (8 sets, daily range): BP systolic 128–167; BP diastolic 63–79
[2022-04-25] MEDS ORDERED: CATHETER FLUSH 10 ML SYR IVP PRN (01:45)
[2022-04-25] MEDS ORDERED: RT-ALBUTEROL HFA 8.5 GM INHALER IH PRN (02:00)
[2022-04-25] MEDS ORDERED: cloNIDine 0.1 MG (CATAPRES) TAB PO PRN (02:00)
[2022-04-25] MEDS ORDERED: ONDANSETRON 4 MG/2 ML (SDV) Z0FRAN IV PRN (02:00)
[2022-04-25] MEDS ORDERED: doxAzosin 4 MG (CARDURA) TAB ONE (02:00)
[2022-04-25] MEDS ORDERED: ALLOPURINOL 100 MG (ZYLOPRIM) TAB ONE (02:01)
[2022-04-25] MEDS ORDERED: lisINopril 40 MG (PRINIVIL) TABLET ONE (02:01)
[2022-04-25 04:13] LABS: BASOPHILS # (AUTO) 0.1 10^3/uL (0.0-0.1); BASOPHILS % (AUTO) 1 % (0-10); EOSINOPHILS # (AUTO) 0.2 10^3/uL (0.0-0.3); EOSINOPHILS % (AUTO) 3 % (0-10); HEMATOCRIT 42 % (40-54); HEMOGLOBIN 13.4 g/dL (13.3-17.7); LYMPHOCYTES % (AUTO) 17 % (12-44); MEAN CORPUSCULAR HEMOGLOBIN 28 pg (25-34); MEAN CORPUSCULAR HGB CONC 32 g/dL (32-36); MEAN CORPUSCULAR VOLUME 88 fL (80-99); MEAN PLATELET VOLUME 9.6 fL (9.0-12.2); MONOCYTES # (AUTO) 0.7 10^3/uL (0.0-1.0); MONOCYTES % (AUTO) 12 % (0-12); NEUTROPHILS % (AUTO) 68 % (42-75); PLATELET COUNT 132 10^3/uL (130-400); WHITE BLOOD COUNT 5.9 10^3/uL (4.3-11.0)
[2022-04-25 04:37] LABS: CALCIUM 9.4 MG/DL (8.5-10.1); CREATININE SERUM 1.17 MG/DL (0.60-1.30); POTASSIUM 3.8 MMOL/L (3.6-5.0)
[2022-04-25 04:38] LABS: CHOLESTEROL 177 MG/DL (< 200); HDL CHOLESTEROL 39 MG/DL (40-60); TRIGLYCERIDES 305 MG/DL (<150); VLDL CHOLESTEROL 61 MG/DL (5-40)
[2022-04-25] MEDS: KCL 20 MEQ TAB (K-DUR) PO SCH (06:03)
[2022-04-25] MEDS: NITROGLYCERIN 2% OINT 1 GM UNIT DOSE PACKET TOP SCH ×3 (06:03→20:15)
[2022-04-25] MEDS: FUROSEMIDE 40 MG (LASIX) TAB PO SCH (06:03)
[2022-04-25] MEDS: CATHETER FLUSH 10 ML SYR IVP SCH ×3 (06:11→20:17)
--- NOTE | 2022-04-25 06:23 | History & Physical-Hospitalist ---
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 Dr Granado recommended admit and initiate Lasix and BP med changes and today he is doing much better per his who is a med-surg nurse here at [place]. ECHO being completed now. BP 128/69. Source: patient, family, RN/MD, old records Exam Limitations: no limitations Date Seen 04/25/22 Time Seen by a Provider: 10:00 Attending Physician Anni Askew MD PCP Admitting Physician: Rowena Faustin DO Attending Physician: Rowena Faustin DO Referring Physician Date of Admission Apr 24, 2022 at 23:20 Home Medications & Allergies Home Medications Reviewed patient Home Medication Reconciliation performed by pharmacy medication reconciliations parts identification technician and/or nursing. Patients Allergies have been reviewed. Allergies Allergies Coded Allergies amiodarone (Verified Allergy, Severe, Anaphylaxis, 10/08/21) SYSTEMIC amlodipine (Verified Allergy, Unknown, leg swelling, 02/12/22) oxycodone (Verified Allergy, Unknown, LETHARGIC, 10/08/21) Past [id number] Hx Patient Social History Marrital Status: Employed/Student: retired Tobacco Use?: No Smoking Status: Former Smoker Use of E-Cig and/or Vaping dev: No Substance use?: No Alcohol Use?: No Pt feels they are or have been: No Immunizations Up To Date Date of Influenza Vaccine: Apr 25, 2020 First/Initial COVID19 Vaccinat: 09/06/20 Second COVID19 Vaccination Mason: 10/04/20 Tetanus Booster (TDap): Unknown PED Vaccines UTD: Yes Date of Pneumonia Vaccine: Aug 14, 2017 Seasonal Allergies Seasonal Allergies: Yes Current Status Advance Directives: Yes Advance Directive Location: Home Communicates: Verbally Primary Language: Guinean Preferred Spoken Language: Guinean Is interpretation needed?: No Sensory deficits: Vision impairment Implanted or Applied Medical D: Stents Past Medical History Surgeries: Gallbladder, Orthopedic, Tonsillectomy Pneumonia, Sleep Apnea Currently Using CPAP: Yes Currently Using BIPAP: No Atrial Fibrillation, Chronic Edema/Swelling, Coronary Artery Disease, High Cholesterol, Hypertension Seizure Disorder Sexually Transmitted Disease: No HIV/AIDS: No Benign Prostatic Hyperpl Gastroesophageal Reflux, Hiatal Hernia Degenerate Disk Disease, Arthritis, Chronic Back Pain, Fractures, Gout Diabetes, Non-Insulin dep Loss of Vision: Denies Hearing Impairment: Denies Sleep Difficulties, Depression Blood Disorders: No Adverse Reaction/Blood Tranf: Yes (fever-lab stated he had an adverse reaction ) CAD s/p stent x2 DM Type 2 Hypertension Hyperlipidemia Larios's disease DDD/chronic back pain gout BPH GERD IBS s/p umbilical hernia repair s/p carpal tunnel repair s/p anterior compartment syndrome L leg s/p marquez knee scopes Family Medical History Cardiovascular disease 19 FATHER 19 MOTHER Diabetes mellitus 19 FATHER 19 MOTHER G8 BROTHER Hypertension 19 FATHER Review of Systems Constitutional: see HPI, dizziness, malaise, weakness EENTM: no symptoms reported Respiratory: dyspnea on exertion Cardiovascular: chest pain Gastrointestinal: no symptoms reported Genitourinary: no symptoms reported Musculoskeletal: no symptoms reported Skin: no symptoms reported Psychiatric/Neurological: No Symptoms Reported All Other Systems Reviewed Negative Unless Noted: Yes Physical Exam Physical Exam Vital Signs Vital Signs - First Documented 04/24/22 04/25/22 20:00 01:03 Temp 37.7 Pulse 77 Resp 27 B/P (MAP) 171/83 (112) Pulse Ox 95 O2 Delivery Room Air Capillary Refill : Height, Weight, BMI Height: 6'0.00" Weight: 247lbs. 0.0oz. [id number]; 36.20 BMI Method:Stated General Appearance: No Apparent Distress, Chronically ill, Obese Eyes: Right Eye Normal Inspection, Right Eye PERRL HEENT: PERRL/EOMI, Normal ENT Inspection, Pharynx Normal, Moist Mucous Membra amanda Neck: Full Range of Motion, Normal Inspection, Non Tender Respiratory: Chest Non Tender, Lungs Clear, Normal Breath Sounds, No Accessory Muscle Use, No Respiratory Distress, Decreased Breath Sounds Cardiovascular: Regular Rate, Rhythm, No Edema, No Gallop, No JVD, No Murmur, Normal Peripheral Pulses Gastrointestinal: Normal Bowel Sounds, No Organomegaly, No Pulsatile Mass, Non Tender, Soft Back: Normal Inspection, No CVA Tenderness, No Vertebral Tenderness Extremity: Normal Capillary Refill, Normal Inspection, Normal Range of Motion, Non Tender, No Calf Tenderness, No Pedal Edema Neurologic/Psychiatric: Alert, Oriented x3, No Motor/Sensory Deficits, Normal Mood/Affect Skin: Normal Color, Warm/Dry Lymphatic: No Adenopathy Results Results/Procedures Labs Laboratory Tests 04/24/22 20:08 04/25/22 03:50 Patient resulted labs reviewed. Assessment/Plan Admission Diagnosis Assessment: HTN urgency Volume overload Dyspnea 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 Pond h/o acute blood loss in chest tube after bypass surgery h/o Iron deficiency anemia Diabetes mellitus Obstructive sleep apnea h/o episode of atrial fibrillation with rapid ventricular response managed by Dr Cr Hypertension Chronic renal insufficiency h/o seizure 2019 could be alcohol withdrawal seizure maintained on Keppra Side effects with benzodiazepines and narcotics will avoid Thrombocytosis Plan: Dr Granado appreciated BP control Lasix ECHO Admission Status: Inpatient Order (span 2 midnights) Reason for Inpatient Admission: HTN urgency Clinical Quality Measures AMI/AHF: ASA po Prior to arrival: Yes (81) ROWENA FAUSTIN DO Apr 25, 2022 06:23
[2022-04-25] MEDS ORDERED: PANTOPRAZOLE 40 MG (PROTONIX) TAB PO SCH (07:00)
[2022-04-25] MEDS ORDERED: ASPIRIN 81 MG CHEW (CHILDREN'S ASA) PO SCH (09:00)
[2022-04-25] MEDS ORDERED: doxAzosin 4 MG (CARDURA) TAB PO SCH ×2 (09:00→21:00)
--- NOTE | 2022-04-25 09:47 | Consultation-Cardiology ---
HPI-Cardiology Cardiology Consultation Date of Consultation 04/25/22 Date of Admission Time Seen by Provider: 09:39 Indication: Hypertensive urgency HPI 66 years old gentleman with a history of coronary artery disease, resistant hypertension, paroxysmal atrial fibrillation. Has been having difficulty achieving adequate blood pressure control, has been having worsening shortness of breath and chest pressure for the past few days, came into the emergency room with a blood pressure over 200, was short of breath and having chest pain, chest pain was relieved after sublingual nitroglycerin, blood pressure stabilized slightly in the emergency room then returned to be elevated. On my evaluation he was laying down comfortably in bed, denied any active chest pain, mild dyspnea, no palpitation. No syncope. Home Medications & Allergies Allergies: Coded Allergies: amiodarone (Verified Allergy, Severe, Anaphylaxis, 10/08/21) SYSTEMIC amlodipine (Verified Allergy, Unknown, leg swelling, 02/12/22) oxycodone (Verified Allergy, Unknown, LETHARGIC, 10/08/21) Home Medication List Reviewed: Yes [id number] Hx Patient Social History Marital Status: Employed/Student: retired Former smoker/When Quit: Sep 13, 1974 Type Used: Smokeless Tobacco 2nd Hand Smoke Exposure: No Recent Hopitalizations: No Have you traveled recently?: No Alcohol Use?: No Immunizations Up To Date Tetanus Booster (TDap): Unknown Date of Pneumonia Vaccine: Aug 14, 2017 Date of Influenza Vaccine: Apr 25, 2020 Past Medical History Discussed below Family Medical History Family History: Cardiovascular disease 19 FATHER 19 MOTHER Diabetes mellitus 19 FATHER 19 MOTHER G8 BROTHER Hypertension 19 FATHER Review of Systems-General Review of Systems Constitutional: see HPI, malaise EENTM: see HPI, no symptoms reported Respiratory: see HPI; No cough; dyspnea on exertion; No hemoptysis; orthopnea; No phlegm; short of breath; No stridor, No wheezing, No other Cardiovascular: see HPI, chest pain, edema; No Hx of Intervention, No palpitations, No syncope, No vascular heart diseas, No other Gastrointestinal: no symptoms reported, see HPI Genitourinary: no symptoms reported, see HPI Musculoskeletal: no symptoms reported, see HPI Skin: no symptoms reported, see HPI Psychiatric/Neurological: No Symptoms Reported, See HPI Reviewed Test Results Reviewed Test Results Lab Laboratory Tests Test 04/24/22 20:08 04/24/22 20:50 04/24/22 20:54 04/24/22 21:06 Range/Units White Blood Count 6.3 4.3-11.0 10^3/uL Red Blood Count 4.60 4.30-5.52 10^6/uL Hemoglobin 13.3 13.3-17.7 g/dL Hematocrit 40 40-54 % Mean Corpuscular Volume 88 80-99 fL Mean Corpuscular Hemoglobin 29 25-34 pg Mean Corpuscular Hemoglobin Concent 33 32-36 g/dL Red Cell Distribution Width 13.9 10.0-14.5 % Platelet Count 132 130-400 10^3/uL Mean Platelet Volume 9.5 9.0-12.2 fL Immature Granulocyte % (Auto) 0 % Neutrophils (%) (Auto) 76 H 42-75 % Lymphocytes (%) (Auto) 12 12-44 % Monocytes (%) (Auto) 9 0-12 % Eosinophils (%) (Auto) 2 0-10 % Basophils (%) (Auto) 1 0-10 % Neutrophils # (Auto) 4.8 1.8-7.8 10^3/uL Lymphocytes # (Auto) 0.7 L 1.0-4.0 10^3/uL Monocytes # (Auto) 0.6 0.0-1.0 10^3/uL Eosinophils # (Auto) 0.1 0.0-0.3 10^3/uL Basophils # (Auto) 0.1 0.0-0.1 10^3/uL Immature Granulocyte # (Auto) 0.0 0.0-0.1 10^3/uL Percent Immature Platelet Fraction 2.0 0.0-7.6 % Prothrombin Time 14.0 12.2-14.7 SEC INR Comment 1.0 0.8-1.4 Activated Partial Thromboplast Time 27 24-35 SEC Sodium Level 138 135-145 MMOL/L Potassium Level 4.1 3.6-5.0 MMOL/L Chloride Level 103 98-107 MMOL/L Carbon Dioxide Level 23 21-32 MMOL/L Anion Gap 12 5-14 MMOL/L Blood Urea Nitrogen 20 H 7-18 MG/DL Creatinine 1.23 0.60-1.30 MG/DL Estimat Glomerular Filtration Rate 64 BUN/Creatinine Ratio 16 Glucose Level 143 H 70-105 MG/DL Calcium Level 9.2 8.5-10.1 MG/DL Corrected Calcium 9.2 8.5-10.1 MG/DL Magnesium Level 1.5 L 1.6-2.4 MG/DL Total Bilirubin 0.7 0.1-1.0 MG/DL Aspartate Amino Transf (AST/SGOT) 24 5-34 U/L Alanine Aminotransferase (ALT/SGPT) 30 0-55 U/L Alkaline Phosphatase 136 40-136 U/L Myoglobin 76.6 10.0-92.0 NG/ML Troponin I < 0.028 <0.028 NG/ML Total Protein 6.7 6.4-8.2 GM/DL Albumin 4.0 3.2-4.5 GM/DL Urine Color YELLOW Urine Clarity CLEAR Urine pH 5.5 5-9 Urine Specific [place] 1.010 L 1.016-1.022 Urine Protein NEGATIVE NEGATIVE Urine Glucose (UA) NEGATIVE NEGATIVE Urine Ketones NEGATIVE NEGATIVE Urine Nitrite NEGATIVE NEGATIVE Urine Bilirubin NEGATIVE NEGATIVE Urine Urobilinogen 0.2 < = 1.0 MG/DL Urine Leukocyte Esterase NEGATIVE NEGATIVE Urine RBC (Auto) NEGATIVE NEGATIVE Urine RBC NONE /HPF Urine WBC NONE /HPF Urine Squamous Epithelial Cells NONE /HPF Urine Crystals NONE /LPF Urine Bacteria NEGATIVE /HPF Urine Casts NONE /LPF Urine Mucus NEGATIVE /LPF Urine Culture Indicated NO Influenza Type A (RT-PCR) Not Detected Not Detecte Influenza Type B (RT-PCR) Not Detected Not Detecte SARS-CoV-2 RNA (RT-PCR) Not Detected Not Detecte Lactic Acid Level 1.59 0.50-2.00 MMOL/L Test 04/24/22 21:42 04/24/22 22:21 04/25/22 03:50 Range/Units C-Reactive Protein High Sensitivity 1.78 H 0.00-0.50 MG/DL B-Type Natriuretic Peptide 298.4 H <100.0 PG/ML Procalcitonin 0.06 <0.10 NG/ML Troponin I < 0.028 <0.028 NG/ML White Blood Count 5.9 4.3-11.0 10^3/uL Red Blood Count 4.72 4.30-5.52 10^6/uL Hemoglobin 13.4 13.3-17.7 g/dL Hematocrit 42 40-54 % Mean Corpuscular Volume 88 80-99 fL Mean Corpuscular Hemoglobin 28 25-34 pg Mean Corpuscular Hemoglobin Concent 32 32-36 g/dL Red Cell Distribution Width 14.0 10.0-14.5 % Platelet Count 132 130-400 10^3/uL Mean Platelet Volume 9.6 9.0-12.2 fL Immature Granulocyte % (Auto) 0 % Neutrophils (%) (Auto) 68 42-75 % Lymphocytes (%) (Auto) 17 12-44 % Monocytes (%) (Auto) 12 0-12 % Eosinophils (%) (Auto) 3 0-10 % Basophils (%) (Auto) 1 0-10 % Neutrophils # (Auto) 4.0 1.8-7.8 10^3/uL Lymphocytes # (Auto) 1.0 1.0-4.0 10^3/uL Monocytes # (Auto) 0.7 0.0-1.0 10^3/uL Eosinophils # (Auto) 0.2 0.0-0.3 10^3/uL Basophils # (Auto) 0.1 0.0-0.1 10^3/uL Immature Granulocyte # (Auto) 0.0 0.0-0.1 10^3/uL Sodium Level 139 135-145 MMOL/L Potassium Level 3.8 3.6-5.0 MMOL/L Chloride Level 102 98-107 MMOL/L Carbon Dioxide Level 23 21-32 MMOL/L Anion Gap 14 5-14 MMOL/L Blood Urea Nitrogen 19 H 7-18 MG/DL Creatinine 1.17 0.60-1.30 MG/DL Estimat Glomerular Filtration Rate 68 BUN/Creatinine Ratio 16 Glucose Level 128 H 70-105 MG/DL Calcium Level 9.4 8.5-10.1 MG/DL Triglycerides Level 305 H <150 MG/DL Cholesterol Level 177 < 200 MG/DL LDL Cholesterol Direct 91 1-129 MG/DL VLDL Cholesterol 61 H 5-40 MG/DL HDL Cholesterol 39 L 40-60 MG/DL Physical Exam Physical Exam Vital Signs Vital Signs - First Documented 04/24/22 04/25/22 20:00 01:03 Temp 37.7 Pulse 77 Resp 27 B/P (MAP) 171/83 (112) Pulse Ox 95 O2 Delivery Room Air Capillary Refill : Height, Weight, BMI Height: 6'0.00" Weight: 247lbs. 0.0oz. [id number]; 35.87 BMI Method:Stated General Appearance: No Apparent Distress, WD/WN Eyes: Bilateral Eye Normal Inspection, Bilateral Eye PERRL, Bilateral Eye EOMI HEENT: PERRL/EOMI, Normal ENT Inspection Neck: Normal Inspection; No JVD Respiratory: No Accessory Muscle Use, No Respiratory Distress, Wheezing (Slight) Cardiovascular: Regular Rate, Rhythm, Systolic Murmur, Gallop/S3, Other (Lower extremity edema, right greater than left) Gastrointestinal: Normal Bowel Sounds, Non Tender, Soft Back: Normal Inspection, No CVA Tenderness, No Vertebral Tenderness Extremity: Non Tender, Pedal Edema, Swelling Neurologic/Psychiatric: Alert, Oriented x3, No Motor/Sensory Deficits, Normal Mood/Affect, 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 Relieved by nitroglycerin, EKG and cardiac enzymes did not show any acute abnormality. Continue to monitor Hypertensive urgency, difficult to control, resistant to multiple medication Intolerant to daily clonidine with sleepiness and fatigue. I restarted metoprolol 100 mg twice daily, lisinopril 40 mg daily Increasing Cardura to 8 mg twice daily and adding hydralazine 25 mg 3 times a day Was intolerant to amlodipine 10 mg, I will start 5 mg and evaluate tolerance and response I am adding Imdur 30 mg daily and monitor tolerance and response Congestive heart failure, acute on chronic left ventricular diastolic dysfunction, nonischemic cardiomyopathy Started on Lasix 40 mg IV daily Evaluate 2D echocardiogram Coronary artery disease, multivessel disease Cardiac catheterization done in August 2018 showing multivessel coronary artery disease CABG x4 done on September 13, 2018 with vein graft to the diagonal artery, ramus intermedius, posterior descending artery and WAYNE to the LAD History of postoperative seizure after bypass surgery and postoperative acute encephalopathy History of blood transfusion reaction after his bypass surgery Paroxysmal atrial fibrillation post bypass surgery Started on amiodarone drip and amiodarone orally and converted to sinus rhythm Had loop monitor implanted in November 2018 and no further arrhythmia was detected History of left side paralysis, transferred to [facility] in [place] CT angiogram did not show any acute abnormality. Symptom fully resolved Carotid stenosis, followed by Dr. Cr Hypothyroidism followed and managed by primary care physician History of PFO detected on echo in May 2018. WEI done in 2014 suggestive of small PFO with [id number] shunt with EF 50% Echocardiogram done in March 2021 showing normal LVEF, left atrium and right atrium mildly dilated, mild to moderate tricuspid regurgitation, pulmonary hypertension with PA pressure 45 to 50 mmHg Diabetes mellitus, followed and managed by primary care physician Diabetic nephropathy, chronic kidney disease stage III. Bilateral lower extremities edema maintained on diuretics Obesity, BMI 35. We discussed weight loss Obstructive sleep apnea maintained on CPAP Hyperlipidemia, difficult to control Maintained on Lipitor 80 mg daily I will evaluate lipid profile Degenerative joint disease with chronic joint and back pain Larios's esophagitis Clinical Quality Measures AMI/AHF: ASA po Prior to arrival: Yes (81) RAMIREZ KAYE MD Apr 25, 2022 09:47
[2022-04-25] MEDS ORDERED: doxAzosin 4 MG (CARDURA) TAB PO NR (10:00)
[2022-04-25] MEDS: ISOSORBIDE MONONITRATE 30 MG (IMDUR) TAB PO SCH (10:06)
[2022-04-25] MEDS: hydrALAZINE (APRESOLINE) 25 MG TAB PO SCH ×2 (10:07→17:57)
[2022-04-25] MEDS: amLODIPine 5 MG (NORVASC) TAB PO SCH (10:07)
[2022-04-25] MEDS: meTOprolol TARTRATE 50 MG (LOPRESSOR) TAB PO SCH ×2 (10:07→20:17)
[2022-04-25] MEDS: ACETAMINOPHEN 500 MG TAB (TYLENOL) PO SCH (20:15)
[2022-04-25] MEDS: ALLOPURINOL 100 MG (ZYLOPRIM) TAB PO SCH (20:16)
[2022-04-25] MEDS: doxAzosin 4 MG (CARDURA) TAB PO SCH (20:17)
[2022-04-25] MEDS: PANTOPRAZOLE 40 MG (PROTONIX) TAB PO SCH (20:17)
[2022-04-25] MEDS ORDERED: VENlafaxine XR 75 MG (EFFEXOR XR) CAP PO SCH (21:00)
[2022-04-25] MEDS ORDERED: lisINopril 40 MG (PRINIVIL) TABLET PO SCH (21:00)
[2022-04-25] MEDS ORDERED: NON-FORMULARY MEDICATION 1 EA EA (Desvenlafaxine Succinate (Desvenlafaxine Succinate ER) 5 PO SCH (21:00)
[2022-04-25] MEDS ORDERED: SENNA W/DOCUSATE (SENOKOT S) TABLET PO SCH (21:00)
[2022-04-25] MEDS ORDERED: traZODone 50 MG (DESYREL) TAB PO SCH (21:00)
[2022-04-25] MEDS ORDERED: NON-FORMULARY MEDICATION 1 EA EA (Metoprolol Tartrate 100 MG) PO SCH (21:00)
[2022-04-26 00:10] VITALS: BP 137/63
[2022-04-26 01:00] VITALS: BP 137/68
[2022-04-26] MEDS: hydrALAZINE (APRESOLINE) 25 MG TAB PO SCH (01:46)
[2022-04-26 04:49] VITALS: BP 147/66
[2022-04-26] MEDS: CATHETER FLUSH 10 ML SYR IVP SCH (05:59)
[2022-04-26] MEDS: NITROGLYCERIN 2% OINT 1 GM UNIT DOSE PACKET TOP SCH (06:01)
[2022-04-26] MEDS: FUROSEMIDE 40 MG (LASIX) TAB PO SCH (06:01)
[2022-04-26] MEDS: KCL 20 MEQ TAB (K-DUR) PO SCH (06:01)
[2022-04-26 06:02] VITALS: BP 152/74
[2022-04-26 07:48] VITALS: BP 154/77
[2022-04-26] MEDS: meTOprolol TARTRATE 50 MG (LOPRESSOR) TAB PO SCH (08:09)
[2022-04-26] MEDS: amLODIPine 5 MG (NORVASC) TAB PO SCH (08:09)
[2022-04-26] MEDS: ISOSORBIDE MONONITRATE 30 MG (IMDUR) TAB PO SCH (08:09)
[2022-04-26] MEDS: doxAzosin 4 MG (CARDURA) TAB PO SCH (08:10)
[2022-04-26] MEDS: ACETAMINOPHEN 500 MG TAB (TYLENOL) PO SCH (08:10)
[2022-04-26] MEDS: ALLOPURINOL 100 MG (ZYLOPRIM) TAB PO SCH (08:10)
[2022-04-26] MEDS: PANTOPRAZOLE 40 MG (PROTONIX) TAB PO SCH (08:11)
[2022-04-26] MEDS ORDERED: VITAMIN D3 25 MCG (1,000 UNITS) TABLET PO SCH (09:00)
[2022-04-26] MEDS ORDERED: ASPIRIN E.C. 81 MG (ECOTRIN) TAB PO SCH (09:00)
[2022-04-26] MEDS ORDERED: BREXPIPRAZOLE 1 MG PO SCH (09:00)
[2022-04-26] MEDS ORDERED: NON-FORMULARY MEDICATION 1 EA EA (Ubidecarenone (Co Q10) 200 MG) PO SCH (09:00)
[2022-04-26] MEDS ORDERED: NON-FORMULARY MEDICATION 1 EA EA (Potassium Chloride 20 MEQ) PO SCH (09:00)
[2022-04-26] MEDS ORDERED: DOXA8TAB PO (09:55)
[2022-04-26] MEDS ORDERED: AMLO-250 PO (09:55)
[2022-04-26] MEDS ORDERED: HYDR-3923 PO (09:55)
[2022-04-26] MEDS ORDERED: ISOS30TA82 PO (09:55)
--- NOTE | 2022-04-26 09:58 | Cardiology Progress Note ---
Subjective Date Seen by Provider: Apr 26, 2022 Time Seen by Provider: 09:56 Subjective/Events-last exam Patient was seen at bedside, sitting comfortably, feeling better, reporting improvement in his symptoms No chest pain, blood pressure is better controlled Review of Systems HEENT: No Head Aches, No Visual Changes, No Eye Pain, No Ear Pain, No Dysphasia, No Sinus Congestion, No Post Nasal Drip, No Sore Throat, No Other Pulmonary: No Dyspnea, No Cough, No Pleuritic Chest Pain, No Other Cardiovascular: No: Chest Pain, Palpitations, Orthopnea, Paroxysmal Noc. Dyspnea, Edema, Lt Headedness, Other Focused Exam Lactate Level 04/24/22 21:06: Lactic Acid Level 1.59 Objective-Cardiology Exam Last Set of Vital Signs Vital Signs 04/26/22 04/26/22 04/26/22 07:48 08:56 09:00 Temp 36.0 Pulse 64 Resp 12 B/P (MAP) 154/77 (102) Pulse Ox 98 O2 Delivery NIV CPAP O2 Flow Rate 0.00 I&O Intake and Output 04/26/22 00:00 Intake Total 750 ml Output Total 4175 ml Balance -3425 ml Intake Oral 750 ml Output Urine Total 4175 ml Daily Weight Change No General: Alert, Oriented X3, Cooperative HEENT: Atraumatic, PERRLA Neck: Supple, No JVD, No Thyromegaly Lungs: Clear to Auscultation, Normal Air Movement Heart: Regular Rate, Normal S1, Normal S2, Other (S3) Abdomen: Normal Bowel Sounds, Soft, No Tenderness, No Hepatosplenomegaly, No Masses Extremities: No Clubbing, No Cyanosis, No Edema, Normal Pulses, No Tenderness /Swelling Skin: No Rashes, No Breakdown, No Significant Lesion Neuro: Normal Gait, Normal Speech, Strength at 5/5 X4 Ext, Normal Tone, Sensation Intact Psych/Mental Status: Mental Status NL, Mood NL A/P-Cardiology Admission Diagnosis Chest pain Hypertensive urgency Congestive heart failure, acute on chronic left ventricular diastolic dysfunction Coronary artery disease Assessment/Plan Chest pain nonspecific etiology, probably secondary to hypertensive urgency. Relieved by nitroglycerin, EKG and cardiac enzymes did not show any acute abnormality. No further episodes of chest pain, continue to monitor Hypertensive urgency, difficult to control, resistant to multiple medication Intolerant to daily clonidine with sleepiness and fatigue. I restarted metoprolol 100 mg twice daily, lisinopril 40 mg daily Increasing Cardura to 8 mg twice daily and adding hydralazine 25 mg 3 times a day Was intolerant to amlodipine 10 mg, Started 5 mg and evaluate tolerance and response I am adding Imdur 30 mg daily and monitor tolerance and response Blood pressure is better, okay for discharge and follow-up as an outpatient with Dr. Cr Congestive heart failure, acute on chronic left ventricular diastolic dysfunction, nonischemic cardiomyopathy Continue on daily 40 Lasix and follow-up as an outpatient 2D echocardiogram was done showing normal LV size and normal contractility with ejection fraction 50 to 55%, diastolic dysfunction Coronary artery disease, multivessel disease Cardiac catheterization done in August 2018 showing multivessel coronary artery disease CABG x4 done on September 13, 2018 with vein graft to the diagonal artery, ramus intermedius, posterior descending artery and WAYNE to the LAD History of postoperative seizure after bypass surgery and postoperative acute encephalopathy History of blood transfusion reaction after his bypass surgery Paroxysmal atrial fibrillation post bypass surgery Started on amiodarone drip and amiodarone orally and converted to sinus rhythm Had loop monitor implanted in November 2018 and no further arrhythmia was detected History of left side paralysis, transferred to [facility] in [place] CT angiogram did not show any acute abnormality. Symptom fully resolved Carotid stenosis, followed by Dr. Cr Hypothyroidism followed and managed by primary care physician History of PFO detected on echo in May 2018. WEI done in 2014 suggestive of small PFO with [id number] shunt with EF 50% Echocardiogram done in March 2021 showing normal LVEF, left atrium and right atrium mildly dilated, mild to moderate tricuspid regurgitation, pulmonary hypertension with PA pressure 45 to 50 mmHg Diabetes mellitus, followed and managed by primary care physician Diabetic nephropathy, chronic kidney disease stage III. Bilateral lower extremities edema maintained on diuretics Obesity, BMI 35. We discussed weight loss Obstructive sleep apnea maintained on CPAP Hyperlipidemia, difficult to control Maintained on Lipitor 80 mg daily I will evaluate lipid profile Degenerative joint disease with chronic joint and back pain Larios's esophagitis RAMIREZ KAYE MD Apr 26, 2022 09:58
--- NOTE | 2022-04-26 11:26 | Discharge Summary ---
Discharge Summary Hospital Course Was the Problem List Reviewed?: Yes Problems/Dx: (1) Hypertensive emergency Status: Acute (2) Acute on chronic heart failure with preserved ejection fraction (HFpEF) Status: Acute Hospital Course Date of Admission: Apr 24, 2022 at 23:20 Admission Diagnosis : Family Physician/Provider: Anni Askew MD Date of Discharge: 04/26/22 Discharge Diagnosis: HTN urgency, volume overload Hospital Course: Short course after he was admitted for HTN urgency and chest pain with no evidence of ACS. Cardiology was consulted and managed elevated BP aggressively with new meds and patient had no decompensation during course and ECHO was stable so he was DC in improved condition. Labs and Pending Lab Test: Microbiology 04/24/22 Blood Culture - Preliminary, Resulted No growth 04/24/22 Urine Culture - Final, Complete See Comments Home Meds Active Cardura Xl (Doxazosin Mesylate) 8 Mg Tab.er.24 8 Mg PO BID Amlodipine Besylate 5 Mg Tablet 5 Mg PO DAILY Isosorbide Mononitrate ER (Isosorbide Mononitrate) 30 Mg Tab.er.24h 30 Mg PO DAILY Hydralazine HCl 25 Mg Tablet 25 Mg PO Q8H Reported Cardura (Doxazosin Mesylate) 4 Mg Tablet 4 Mg PO BID Senna S Tablet (Sennosides/Docusate Sodium) 8.6 Mg-50 Mg Tablet 1 Each PO HS Vitamin D3 (Cholecalciferol (Vitamin D3)) 25 Mcg (1000 Unit) Tablet 25 Mcg PO DAILY Atorvastatin Calcium 80 Mg Tablet 80 Mg PO HS Desvenlafaxine Succinate ER (Desvenlafaxine Succinate) 50 Mg Tab.er.24h 50 Mg PO HS Aspirin EC (Aspirin) 81 Mg Tablet.dr 81 Mg PO DAILY Lisinopril 40 Mg Tablet 40 Mg PO HS Potassium Chloride 20 Meq Tablet.er 20 Meq PO DAILY TAKES WITH FUROSEMIDE. IF FREQUEMCY CHANGES ON FUROSEMIDE THEN POTASSIUM CHANGES WELL Rexulti (Brexpiprazole) 1 Mg Tablet 1 Mg PO DAILY Tramadol HCl 50 Mg Tablet 100 Mg PO HS TAKES 2 (50MG) TABS Trazodone HCl 50 Mg Tablet 50 Mg PO HS Dexilant (Dexlansoprazole) 60 Mg Cap.dr.bp 60 Mg PO BID Tramadol HCl 50 Mg Tablet 50 Mg PO DAILY Co Q10 (Ubidecarenone) 200 Mg Capsule 200 Mg PO DAILY Tylenol Extra Strength (Acetaminophen) 500 Mg Tablet 1,000 Mg PO BID TAKES 2 (500MG) TABS Allopurinol 100 Mg Tablet 100 Mg PO BID Furosemide 40 Mg Tablet 40 Mg PO DAILY Metoprolol Tartrate 100 Mg Tablet 100 Mg PO BID Assessment/Pt Instructions Dr Anderson this week Discharge Planning: <30 minutes discharge planning Discharge Physical Examination Vital Signs Vital Signs Date Time Temp Pulse Resp B/P (MAP) Pulse Ox O2 Delivery O2 Flow Rate FiO2 04/26/22 09:00 98 NIV CPAP 04/26/22 08:56 0.00 04/26/22 07:48 36.0 64 12 154/77 (102) General Appearance: No Apparent Distress, WD/WN, Chronically ill, Obese Allergies: Coded Allergies: amiodarone (Verified Allergy, Severe, Anaphylaxis, 10/08/21) SYSTEMIC amlodipine (Verified Allergy, Unknown, leg swelling, 02/12/22) oxycodone (Verified Allergy, Unknown, LETHARGIC, 10/08/21) Discharge Summary Date of Admission Apr 24, 2022 at 23:20 Date of Discharge Discharge Date: Apr 26, 2022 Admission Diagnosis Assessment: HTN urgency Volume overload Dyspnea 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 Pond h/o acute blood loss in chest tube after bypass surgery h/o Iron deficiency anemia Diabetes mellitus Obstructive sleep apnea h/o episode of atrial fibrillation with rapid ventricular response managed by Dr Cr Hypertension Chronic renal insufficiency h/o seizure 2019 could be alcohol withdrawal seizure maintained on Keppra Side effects with benzodiazepines and narcotics will avoid Thrombocytosis Plan: Dr Granado appreciated BP control Lasix ECHO Clinical Quality Measures AMI/AHF: ASA po Prior to arrival: Yes (81) HUYEN FAUSTIN DO Apr 26, 2022 11:26
== END 2022-04-26 11:50 | disposition home or self-care (01) | DRG 291 ==
LOC: EDUNIT# 19:50 → ER 19:51 → CSD 23:20
PROVIDERS: ADMIT Internal Medicine; ATTEND Internal Medicine
DX: I13.0 Hypertensive heart and chronic kidney disease with heart failure and stage 1 through stage 4 chronic kidney disease, or unspecified chronic kidney disease (principal); I50.33 Acute on chronic diastolic (congestive) heart failure; I16.0 Hypertensive urgency; I42.9 Cardiomyopathy, unspecified; N18.9 Chronic kidney disease, unspecified; E11.40 Type 2 diabetes mellitus with diabetic neuropathy, unspecified; E11.21 Type 2 diabetes mellitus with diabetic nephropathy; I48.0 Paroxysmal atrial fibrillation; Z20.822 Contact with and (suspected) exposure to COVID-19; N40.0 Benign prostatic hyperplasia without lower urinary tract symptoms; D75.839 Thrombocytosis, unspecified; K21.9 Gastro-esophageal reflux disease without esophagitis; I25.10 Atherosclerotic heart disease of native coronary artery without angina pectoris; I07.1 Rheumatic tricuspid insufficiency; I27.20 Pulmonary hypertension, unspecified; M10.9 Gout, unspecified; F32.A Depression, unspecified; K22.70 Barrett's esophagus without dysplasia; F10.20 Alcohol dependence, uncomplicated; G47.33 Obstructive sleep apnea (adult) (pediatric); E78.00 Pure hypercholesterolemia, unspecified; G40.909 Epilepsy, unspecified, not intractable, without status epilepticus; E66.9 Obesity, unspecified; Z68.35 Body mass index [BMI] 35.0-35.9, adult; H54.7 Unspecified visual loss; Z87.891 Personal history of nicotine dependence; Z95.5 Presence of coronary angioplasty implant and graft; Z95.1 Presence of aortocoronary bypass graft; Z79.82 Long term (current) use of aspirin; Z88.5 Allergy status to narcotic agent; Z88.8 Allergy status to other drugs, medicaments and biological substances; Z82.49 Family history of ischemic heart disease and other diseases of the circulatory system; Z83.3 Family history of diabetes mellitus
CPT/HCPCS: 36415; 71045; 80048; 80053; 80061; 81000; 83605; 83735; 83874; 83880; 84145; 84484; 85025; 85610; 85730; 86141; 87040; 87088; 87636; 93005; 93041; 93306; 94760

== ENCOUNTER 2022-05-12 06:49 | Day surgery (SDC) | payer OTHER, MEDICARE ==
[~2022-05-12] VITALS: Ht 182.9 cm; Wt 126.0 kg
[2022-05-12] VITALS (10 sets, daily range): BP systolic 122–159; BP diastolic 62–98
[~2022-05-12 06:49] MED LIST changes: +AMLO-250 PO; +DOXA4TAB PO; +DOXA8TAB PO; +HYDR-3923 PO; +ISOS30TA82 PO
[2022-05-12] MEDS ORDERED: NS IV 1000 ML 1,000 ML ONE (06:56)
[2022-05-12] MEDS ORDERED: HEParin (CATH LAB) 2,000 ML IV ONE (06:56)
[2022-05-12] MEDS ORDERED: LIDOCAINE 1% INJ 30 ML (XYLOCAINE) VIAL ONE (06:56)
[2022-05-12] MEDS ORDERED: NS IV 1000 ML 1,000 ML IV SCH ×3 (07:00→12:00)
[2022-05-12 07:18] LABS: HEMATOCRIT 42 % (40-54); HEMOGLOBIN 13.6 g/dL (13.3-17.7); MEAN CORPUSCULAR HEMOGLOBIN 29 pg (25-34); MEAN CORPUSCULAR HGB CONC 32 g/dL (32-36); MEAN CORPUSCULAR VOLUME 89 fL (80-99); PLATELET COUNT 155 10^3/uL (130-400); WHITE BLOOD COUNT 6.8 10^3/uL (4.3-11.0)
[2022-05-12 07:23] LABS: ALBUMIN 4.3 GM/DL (3.2-4.5); POTASSIUM 4.3 MMOL/L (3.6-5.0)
[2022-05-12 07:24] LABS: CALCIUM 9.6 MG/DL (8.5-10.1)
[2022-05-12 07:25] LABS: TOTAL PROTEIN 7.1 GM/DL (6.4-8.2)
[2022-05-12 07:27] LABS: BILIRUBIN,TOTAL 0.6 MG/DL (0.1-1.0)
[2022-05-12 07:29] LABS: CREATININE SERUM 1.01 MG/DL (0.60-1.30)
[2022-05-12] MEDS ORDERED: DOCU100C37 PO (07:38)
[2022-05-12] MEDS ORDERED: HYDR-3923 PO (07:38)
[2022-05-12] MEDS ORDERED: SULF1TAB34 PO (07:38)
[2022-05-12] MEDS ORDERED: MAGN400T7 PO (07:38)
[2022-05-12 08:04] LABS: PROTHROMBIN TIME PATIENT 13.7 SEC (12.2-14.7)
[2022-05-12] MEDS ORDERED: fentaNYL INJ 100 MCG/2 ML AMP ONE (08:09)
[2022-05-12] MEDS ORDERED: MIDAZOLAM 5 MG/5 ML (VERSED) VIAL ONE (08:09)
--- NOTE | 2022-05-12 11:01 | CARDIAC CATHETERIZATION ---
DATE OF SERVICE: 05/12/2022 CARDIAC CATHETERIZATION REPORT The patient is a 66-year-old gentleman who has had multiple hospitalizations with severe hypertension and diastolic heart failure. He has had increasing shortness of breath. He has a known history of coronary artery disease. Right and left heart catheterization was recommended for further evaluation for his symptoms and repeated admissions in the recent past. Informed consent was obtained. DESCRIPTION OF PROCEDURE: He was brought to the cardiac catheterization laboratory in a fasting state. Right groin was prepared and draped in the usual sterile fashion. Lidocaine 1% was used for local anesthesia. Modified Seldinger technique was used to advance a 5-Thai sheath into the right femoral artery and a 7-Thai sheath into the right femoral vein. A 7-Thai Coplay-Anibal catheter was used to carry out right heart catheterization. Oxygen saturation was measured in various right heart chambers. The catheter was removed. We then carried out left heart catheterization with a 5-Thai pigtail catheter. Left ventricular angiography was performed. The catheter was pulled back and removed. We used 5-Thai JL4 catheter for left coronary angiography. We used 5-Thai JR4 catheter for angiography of the right coronary artery and for the aortocoronary grafts. For angiography of the left internal mammary artery, we used a 5-Thai IMC catheter. We used a pigtail catheter to carry out abdominal aortic angiography. Abdominal aortic angiography was performed to evaluate for renal artery stenosis and renal vascular hypertension. The angiogram did not show the renal arteries adequately. Accordingly, the renal arteries were then selectively engaged with a 5-Thai JR4 catheter and angiography was performed. At the end of the procedure, angiography of the right femoral artery was carried out through the sheath and Mynx was used to achieve hemostasis. Manual pressure was used to achieve hemostasis following venous sheath removal. He tolerated the procedure well. HEMODYNAMICS: Pulmonary artery pressure was 45/28 with a mean of 35 mmHg. Mean pulmonary wedge pressure was 25 mmHg. Right ventricular pressure was 53/25. Left ventricular pressure was 157/30. Left ventricular end-diastolic pressure was 30 mmHg. There was no significant pressure gradient on pullback across the aortic valve. Ascending aortic pressure was 143/85 with a mean of 111 mmHg. There was no significant oxygen saturation difference in various right heart chambers. Cardiac output by Thermo dilution was 8.23 with a cardiac index of 3.37. Pulmonary vascular resistance was calculated to be 1.74 Wood units. CORONARY ANGIOGRAPHY: Left main coronary artery is free of significant disease. Left anterior descending artery had severe mid vessel stenosis of more than 90%. The left circumflex artery, to the extent visualized, do not exhibit significant stenosis. The right coronary artery has severe disease that involves its proximal, mid and distal portions and there is stenosis of up to 90%. AORTOCORONARY and LEFT INTERNAL MAMMARY GRAFT ANGIOGRAPHY: The most cephalic aortocoronary graft is to a sub-branch of an obtuse marginal branch. This is widely patent and does not exhibit significant disease. There is good antegrade and retrograde flow. The more caudal aortocoronary graft is to a diagonal branch of the left anterior descending. This diagonal branch is a very small caliber vessel (1 to 1.5 cm diameter). The graft is intact, but there is significant (approximately 90%) stenosis at the site of insertion. The most caudal graft is an aortocoronary graft to posterior descending branch of the right coronary. This is widely patent. It has approximately 50% stenosis at the site of insertion. There is good antegrade and retrograde flow. Left internal mammary graft is intact and there is good distal run off also good retrograde flow LEFT VENTRICULAR ANGIOGRAPHY: Left ventricular angiography was carried out in the right anterior oblique projection. Global left ventricular systolic function is well preserved. Left ventricular ejection fraction is approximately 55% to 60%. ABDOMINAL AORTIC ANGIOGRAPHY: Abdominal aortic angiography reveals considerable tortuosity of the aortoiliac system. There does not appear to be significant aortic aneurysm or dissection. Renal arteries are identified, but the origins are not well visualized. Accordingly, selective angiography was performed. It is described below. There is no significant stenosis of the aortoiliac bifurcation. RIGHT RENAL ARTERY ANGIOGRAPHY: Right renal artery does not exhibit any significant stenosis. LEFT RENAL ARTERY ANGIOGRAPHY: Left renal artery exhibits approximately 50% ostial and proximal stenosis. CONCLUSIONS: 1. Severe coronary artery disease primarily consisting of severe mid vessel bifurcation stenosis of the left anterior descending and severe disease in the right coronary artery in its proximal, mid and distal portions. 2. Patent left internal mammary artery graft to the left anterior descending. 3. Patent aortocoronary graft to a very small caliber diagonal (less than 1.5 cm diameter). The insertion of this graft into this very small vessel has severe stenosis of up to approximately 90%. 4. Patent aortocoronary graft to a sub-branch of an obtuse marginal branch, left circumflex. 5. Patent saphenous vein graft to posterior descending branch of the right coronary artery. It exhibits approximately 50% stenosis at the site of insertion. 6. No significant abdominal aortic aneurysm. 7. 50% stenosis of the ostial and proximal portion of the left renal artery. 8. No significant stenosis of the right renal artery. DISCUSSION AND RECOMMENDATIONS: This study indicates considerable left heart failure. This appears to be diastolic dysfunction of the left ventricle. This will be treated accordingly. The stenosis at the site of insertion of the aortocoronary graft into a very small caliber diagonal does not appear ideally suited to intervention. It is not suitable for stenting. Even for ballooning, the vessel is small. It appears reasonable to continue a conservative approach at this time and see how symptoms progress/improve. Good blood pressure control is needed. Close outpatient followup is advised. Job ID: [id number] DocumentID: [id number] Dictated Date: 05/12/2022 10:41:55 [employer] Date: 05/12/2022 11:01:20 Dictated By: YISSEL SHOEMAKER MD, MA, FACP, FACC, MTDD
[2022-05-12] MEDS ORDERED: METO5TAB6 PO (11:12)
[2022-05-12] MEDS ORDERED: POTA-51 PO (11:12)
--- NOTE | 2022-05-12 11:13 | Discharge Inst-Post CATH ---
Discharge Inst-CATH/EP Post Cardiac Cath/EP D/C Inst Follow Up/Plan F/u with Dr Cr next week ACTIVITY * Go Home directly and rest. * Limit activity of the leg (or wrist if it was used) for 7 days including aerobics, swimming, jogging, bicycling, etc. * Restrict stair-climbing for 7 days if possible, if not, climb up with your non -cath leg, then bring together on the same step. * Avoid lifting, pushing, pulling or excessive movement of the affected extr emity for 7 days. * Customary sexual activity may be resumed after 2 days-use caution not to use a position that strains or causes pain to the affected extremity. * No driving for 24 hours. * NO SMOKING. * Avoid straining for bowel movements for 7 days. * Gentle walking on level ground is allowed. * Returning to work will depend on the type of procedure and the results. Your doctor will discuss this with you. CALL YOUR DOCTOR FOR ANY OF THE FOLLOWING: *If bleeding from the puncture site occurs- Apply gentle pressure to site with clean cloth and call your doctor or EMS. * If a knot or lump forms under the skin, increases in size, or causes pain. * If bruising appears to be worsening or moving further down your leg instead of disappearing. * Temperature above 101 F. CARE OF YOUR GROIN INCISION; * Bruising or purple discoloration of the skin near the puncture site is common. * You may shower only, no bathtub bathing for 5 days. Be careful to avoid slipping as your leg may feel stiff. * If a closure device was used on your femoral artery, please see the attached guide regarding care of the device and your leg. * Leave dressing on FOR 24 hours. CARE OF YOUR WRIST INCISION; * Bruising or purple discoloration of the skin near the puncture site is common. * You may shower. * DO NOT submerge wrist. * Leave dressing on FOR 24 hours. YISSEL CR MD [facility] May 12, 2022 11:13
--- NOTE | 2022-05-12 11:13 | Discharge Inst-Cardiology ---
Discharge Inst-Cardiac Discharge Medications New Medications: Metolazone (Metolazone) 5 Mg Tablet 5 MG PO DAILY, #30 TAB 3 Refills Potassium Chloride (Potassium Chloride) 20 Meq Tablet.er 20 MEQ PO BID, #60 TAB 3 Refills Continued Medications: Acetaminophen (Tylenol Extra Strength) 500 Mg Tablet 1000 MG PO BID, TAB TAKES 2 (500MG) TABS Allopurinol (Allopurinol) 100 Mg Tablet 100 MG PO BID, TAB Amlodipine Besylate (Amlodipine Besylate) 5 Mg Tablet 5 MG PO DAILY, #30 TAB 3 Refills Aspirin (Aspirin EC) 81 Mg Tablet.dr 81 MG PO DAILY, TAB Atorvastatin Calcium (Atorvastatin Calcium) 80 Mg Tablet 80 MG PO HS, TAB Brexpiprazole (Rexulti) 1 Mg Tablet 1 MG PO DAILY, TAB Cholecalciferol (Vitamin D3) (Vitamin D3) 25 Mcg (1000 Unit) Tablet 50 MCG PO DAILY, TAB Desvenlafaxine Succinate (Desvenlafaxine Succinate ER) 50 Mg Tab.er.24h 50 MG PO HS, TAB Dexlansoprazole (Dexilant) 60 Mg Cap.dr.bp 60 MG PO BID Docusate Sodium (Docusate Sodium) 100 Mg Capsule 100 MG PO HS, CAP Doxazosin Mesylate (Cardura Xl) 8 Mg Tab.er.24 8 MG PO BID, #30 TAB 2 Refills Furosemide (Furosemide) 40 Mg Tablet 40 MG PO DAILY, TAB Hydralazine HCl (Hydralazine HCl) 25 Mg Tablet 25 MG PO PRN PRN for BLOOD PRESSURE, TAB Isosorbide Mononitrate (Isosorbide Mononitrate ER) 30 Mg Tab.er.24h 30 MG PO DAILY, #30 TAB 3 Refills Lisinopril (Lisinopril) 40 Mg Tablet 40 MG PO HS, TAB Magnesium Oxide (Magnesium Oxide) 400 Mg Tablet 400 MG PO DAILY, TAB Metoprolol Tartrate (Metoprolol Tartrate) 100 Mg Tablet 100 MG PO BID, TAB Sulfamethoxazole/Trimethoprim (Bactrim 400-80 mg Tablet) 400 Mg-80 Mg Tablet 0.5 TAB PO HS, TAB Tramadol HCl (Tramadol HCl) 50 Mg Tablet 50 MG PO DAILY, TAB Tramadol HCl (Tramadol HCl) 50 Mg Tablet 100 MG PO HS, TAB TAKES 2 (50MG) TABS Trazodone HCl (Trazodone HCl) 50 Mg Tablet 50 MG PO HS, TAB Ubidecarenone (Co Q10) 200 Mg Capsule 100 MG PO DAILY, CAP Discontinued Medications: Potassium Chloride (Potassium Chloride) 20 Meq Tablet.er 20 MEQ PO DAILY, TAB TAKES WITH FUROSEMIDE. IF FREQUEMCY CHANGES ON FUROSEMIDE THEN POTASSIUM CHANGES WELL YISSEL SHOEMAKER MD FACP [facility] May 12, 2022 11:13
[2022-05-12] MEDS ORDERED: PATIENT MAY USE OWN MEDS, ALL PO SCH ×2 (11:15→12:00)
== END 2022-05-12 13:52 | disposition home or self-care (01) ==
LOC: CATH 06:49 → SDC 10:54 → CATH 13:52
PROVIDERS: ATTEND Internal Medicine Cardiovascular Disease
DX: I25.10 Atherosclerotic heart disease of native coronary artery without angina pectoris (principal); I13.0 Hypertensive heart and chronic kidney disease with heart failure and stage 1 through stage 4 chronic kidney disease, or unspecified chronic kidney disease; I50.23 Acute on chronic systolic (congestive) heart failure; I65.23 Occlusion and stenosis of bilateral carotid arteries; D64.9 Anemia, unspecified; E03.9 Hypothyroidism, unspecified; Q21.12 Patent foramen ovale; E11.22 Type 2 diabetes mellitus with diabetic chronic kidney disease; N18.30 Chronic kidney disease, stage 3 unspecified; R60.0 Localized edema; E66.9 Obesity, unspecified; Z68.37 Body mass index [BMI] 37.0-37.9, adult; G47.33 Obstructive sleep apnea (adult) (pediatric); E78.5 Hyperlipidemia, unspecified; K22.70 Barrett's esophagus without dysplasia; Z79.899 Other long term (current) drug therapy; I48.0 Paroxysmal atrial fibrillation; Z79.84 Long term (current) use of oral hypoglycemic drugs
CPT/HCPCS: 36252; 75625; 80053; 80061; 85027; 85610; 85730; 87081; 93005; 93461; C1760; C1894 ×2; 36415

== ENCOUNTER → 2022-05-18 | Outpatient (CLI) | payer OTHER, MEDICARE ==
[~2022-05-18] MED LIST changes: +DOCU100C37 PO; +MAGN400T7 PO; +METO5TAB6 PO
[2022-05-18 07:23] LABS: POTASSIUM 4.5 MMOL/L (3.6-5.0)
[2022-05-18 07:24] LABS: CALCIUM 9.6 MG/DL (8.5-10.1)
[2022-05-18 07:29] LABS: CREATININE SERUM 1.14 MG/DL (0.60-1.30)
[2022-05-18 07:31] LABS: MAGNESIUM 1.7 MG/DL (1.6-2.4)
== END ==
LOC: LAB 06:52
PROVIDERS: ATTEND Internal Medicine Cardiovascular Disease
DX: I50.31 Acute diastolic (congestive) heart failure (principal)
CPT/HCPCS: 36415; 80048; 83735

== ENCOUNTER → 2022-05-25 | Outpatient (RCR) | payer OTHER, MEDICARE | LOC: CR 07:36 | PROVIDERS: ATTEND Internal Medicine Cardiovascular Disease | DX: I20.8 Other forms of angina pectoris (principal) | CPT/HCPCS: 93798 ==

== ENCOUNTER → 2022-06-22 | Outpatient (CLI) | payer OTHER, MEDICARE ==
[2022-06-22 07:36] LABS: HEMATOCRIT 42 % (40-54); MEAN CORPUSCULAR HEMOGLOBIN 29 pg (25-34); MEAN CORPUSCULAR HGB CONC 34 g/dL (32-36); MEAN CORPUSCULAR VOLUME 87 fL (80-99); PLATELET COUNT 168 10^3/uL (130-400); WHITE BLOOD COUNT 6.9 10^3/uL (4.3-11.0)
[2022-06-22 07:54] LABS: CALCIUM 9.7 MG/DL (8.5-10.1); CREATININE SERUM 1.14 MG/DL (0.60-1.30); MAGNESIUM 1.5 MG/DL (1.6-2.4); POTASSIUM 4.4 MMOL/L (3.6-5.0)
== END ==
LOC: LAB 07:14
PROVIDERS: ATTEND Internal Medicine Cardiovascular Disease
DX: I11.0 Hypertensive heart disease with heart failure (principal); I50.33 Acute on chronic diastolic (congestive) heart failure; I25.10 Atherosclerotic heart disease of native coronary artery without angina pectoris; I48.0 Paroxysmal atrial fibrillation; I65.23 Occlusion and stenosis of bilateral carotid arteries; G47.33 Obstructive sleep apnea (adult) (pediatric); M79.89 Other specified soft tissue disorders; E78.2 Mixed hyperlipidemia; Z95.1 Presence of aortocoronary bypass graft
CPT/HCPCS: 36415; 80048; 83735; 85027

== ENCOUNTER → 2022-06-24 | Outpatient (RCR) | payer OTHER, MEDICARE | END | disposition home or self-care (01) | LOC: CR 05-27 06:16 | PROVIDERS: ATTEND Internal Medicine Cardiovascular Disease | DX: Z29.8 Encounter for other specified prophylactic measures (principal); I20.8 Other forms of angina pectoris | CPT/HCPCS: 93798 ==

== ENCOUNTER 2022-07-13 10:42 | Outpatient (RCR) | payer OTHER, MEDICARE | END 2022-07-25 | disposition home or self-care (01) | LOC: CR 10:42 | PROVIDERS: ATTEND Internal Medicine Cardiovascular Disease | DX: Z29.8 Encounter for other specified prophylactic measures (principal); I20.9 Angina pectoris, unspecified | CPT/HCPCS: 93798 ==

== ENCOUNTER 2022-08-26 11:58 | Emergency (ER) | payer OTHER, MEDICARE ==
[~2022-08-26] VITALS: Ht 182 cm; Wt 126.0 kg
[~2022-08-26 11:58] MED LIST changes: -POTA10CA43 PO; +POTA10CA44 PO
--- NOTE | 2022-08-26 12:32 | ED General ---
General Chief Complaint: General Problems/Pain Stated Complaint: ABNORMAL EKG Nursing Triage Note: PT AMB TO RM [address] VISIT THIS AM. PT HAS TACHYCARDIA AND NORMALLY DOES NOT HAVE. PT FEELS SOA THIS AM. PT STATES HAS CHRONIC BACK PAIN. PT WAS SEEN AT DR OFFICE THIS AM. Source of Information: Patient, Family () Exam Limitations: No Limitations History of Present Illness Date Seen by Provider: Aug 26, 2022 Time Seen by Provider: 12:20 Initial Comments Patient is a 67-year-old with a history of diabetes and coronary artery disease status post CABG who presents to the emergency room at the direction of Dr. Cr's office after seeing his primary care physician, Dr. George today in [facility] for routine visit. Patient has been feeling more short of breath with exertion over the last couple of days. He states he feels "crummy". He denies chest pain, shortness of breath at rest, nausea. He denies recent fevers, chills. He denies problems with bowel or bladder. No excessive swelling in his legs or pain in his calves that is unusual. He states he has chronic low back pain which radiates down the back of both legs. Asymmetric swelling in his legs right greater than left due to his CABG. He has had an episode of tachycardia in the past that resolved with adenosine his rate was up in the 140s according to his . Dr. George was concerned this morning when at rest he had a resting tachycardia of 114 or so. She faxed the EKG to Dr. Lamas's office who reviewed it and decided to send him to the ER. He is COVID vaccinated and boosted. No sick contacts. No recent travel; no prolonged immobility; no history of blood clot. No on any anti-coagulants - only aspirin Had Covid in May of 2022; blood sugar "normal" this morning All other review of systems reviewed and negative except as stated Timing/Duration: 1-2 Days Severity: Moderate Associated Systoms: Malaise Allergies and Home Medications Allergies Coded Allergies: amiodarone (Verified Allergy, Severe, Anaphylaxis, 10/08/21) SYSTEMIC oxycodone (Verified Allergy, Unknown, LETHARGIC, 10/08/21) Patient Home Medication List Home Medication List Reviewed: Yes Acetaminophen (Tylenol Extra Strength) 500 Mg Tablet, 1,000 MG PO BID, (Reported) Entered as Reported by: SHERYL PIÑA on 03/22/19 1353 Allopurinol (Allopurinol) 100 Mg Tablet, 100 MG PO BID, (Reported) Entered as Reported by: SHERYL PIÑA on 03/22/19 1346 Amlodipine Besylate (Amlodipine Besylate) 5 Mg Tablet, 5 MG PO DAILY Prescribed by: RAMIREZ KAYE on 04/26/22 0955 Aspirin (Aspirin EC) 81 Mg Tablet.dr, 81 MG PO DAILY, (Reported) Entered as Reported by: GIL CHRISTINE on 02/12/22 1026 Atorvastatin Calcium (Atorvastatin Calcium) 80 Mg Tablet, 80 MG PO HS, (Reported) Entered as Reported by: GIL CHRISTINE on 02/12/22 1026 Brexpiprazole (Rexulti) 1 Mg Tablet, 1 MG PO DAILY, (Reported) Entered as Reported by: INES DENTON on 10/08/21 1341 Cholecalciferol (Vitamin D3) (Vitamin D3) 25 Mcg (1000 Unit) Tablet, 50 MCG PO DAILY, (Reported) Entered as Reported by: GIL CHRISTINE on 02/12/22 1026 Desvenlafaxine Succinate (Desvenlafaxine Succinate ER) 50 Mg Tab.er.24h, 50 MG PO HS, (Reported) Entered as Reported by: GIL CHRISTINE on 02/12/22 1026 Dexlansoprazole (Dexilant) 60 Mg Cap.bp, 60 MG PO BID, (Reported) Entered as Reported by: SHERYL PIÑA on 03/22/19 1354 Docusate Sodium (Docusate Sodium) 100 Mg Capsule, 100 MG PO HS, (Reported) Entered as Reported by: VALDEMAR MARCANO on 05/12/22 0738 Doxazosin Mesylate (Cardura Xl) 8 Mg Tab.er.24, 8 MG PO BID Prescribed by: RAMIREZ KAYE on 04/26/22 0955 Furosemide (Furosemide) 40 Mg Tablet, 40 MG PO DAILY, (Reported) Entered as Reported by: SHERYL PIÑA on 03/22/19 1346 Hydralazine HCl (Hydralazine HCl) 25 Mg Tablet, 25 MG PO PRN PRN for BLOOD PRESSURE, (Reported) Entered as Reported by: VALDEMAR MARCANO on 05/12/22 0738 Isosorbide Mononitrate (Isosorbide Mononitrate ER) 30 Mg Tab.er.24h, 30 MG PO DAILY Prescribed by: RAMIREZ KAYE on 04/26/22 0955 Lisinopril (Lisinopril) 40 Mg Tablet, 40 MG PO HS, (Reported) Entered as Reported by: GIL CHRISTINE on 02/12/22 1026 Magnesium Oxide (Magnesium Oxide) 400 Mg Tablet, 400 MG PO DAILY, (Reported) Entered as Reported by: VALDEMAR MARCANO on 05/12/22 0738 Metolazone (Metolazone) 5 Mg Tablet, 5 MG PO DAILY Prescribed by: IYSSEL CR on 05/12/22 1112 Metoprolol Tartrate (Metoprolol Tartrate) 100 Mg Tablet, 100 MG PO BID, (Reported) Entered as Reported by: SHERYL PIÑA on 03/22/19 1346 Potassium Chloride (Potassium Chloride) 20 Meq Tablet.er, 20 MEQ PO BID Prescribed by: YISSEL CR on 05/12/22 1112 Sulfamethoxazole/Trimethoprim (Bactrim 400-80 mg Tablet) 400 Mg-80 Mg Tablet, 0.5 TAB PO HS, (Reported) Entered as Reported by: VALDEMAR MARCANO on 05/12/22 0738 Tramadol HCl (Tramadol HCl) 50 Mg Tablet, 50 MG PO DAILY, (Reported) Entered as Reported by: SHERYL PIÑA on 03/22/19 1354 Tramadol HCl (Tramadol HCl) 50 Mg Tablet, 100 MG PO HS, (Reported) Entered as Reported by: MAYI PABLO on 10/16/20 0916 Trazodone HCl (Trazodone HCl) 50 Mg Tablet, 50 MG PO HS, (Reported) Entered as Reported by: ALEKSANDER GODDARD on 06/28/19 1054 Ubidecarenone (Co Q10) 200 Mg Capsule, 100 MG PO DAILY, (Reported) Entered as Reported by: SHERYL PIÑA on 03/22/19 1354 Review of Systems Review of Systems Constitutional: see HPI, malaise EENTM: no symptoms reported Respiratory: short of breath (with exertion) Cardiovascular: palpitations Gastrointestinal: no symptoms reported Genitourinary: no symptoms reported Musculoskeletal: no symptoms reported Skin: no symptoms reported All Other Systems Reviewed Negative Unless Noted: Yes Past Sdyxldf-Yqmwci-Mtqswx Hx Patient Social History Tobacco Use?: No Substance use?: No Alcohol Use?: No Immunizations Up To Date Tetanus Booster (TDap): Unknown PED Vaccines UTD: Yes Influenza Vaccine Up-to-Date: Yes; Up-to-Date First/Initial COVID19 Vaccinat: 09/06/20 Second COVID19 Vaccination Mason: 10/04/20 Third COVID19 Vaccination Date: APRIL 2021 Seasonal Allergies Seasonal Allergies: Yes Past Medical History Surgery/Hospitalization HX: DIABETIC NO INSULIN, NEUROPATHY, HTN, QUADRUPLE BYPASS, GOUT, DEPRESSION, BARRETS ESOPHAGUS, ALCOHOLISM RECOVERY Surgeries: Yes (CTR SARAHI,ANT COMPARTMENT SYNDROM R LEG, BILAT knee scope,LOOP RECORDER) Abdominal, CABG, Gallbladder, Orthopedic, Tonsillectomy Respiratory: Yes (SLEEP APNEA-USES CPAP, DYSPNEA) Pneumonia, Sleep Apnea Currently Using CPAP: Yes Currently Using BIPAP: No Cardiac: Yes (2 STENTS-CABG x 4, HAS LOOP RECORDER, EDEMA) Atrial Fibrillation, Chronic Edema/Swelling, Coronary Artery Disease, High Cholesterol, Hypertension Neurological: No ( 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) Seizure Disorder Reproductive Disorders: No Sexually Transmitted Disease: No HIV/AIDS: No Genitourinary: Yes (renal issues after CABG, ERECTYLE DYSFUNCTION) Benign Prostatic Hyperpl Gastrointestinal: Yes (UMB HERNIA REPAIR) Gastroesophageal Reflux, Hiatal Hernia Musculoskeletal: Yes (RIB FX) Degenerate Disk Disease, Arthritis, Chronic Back Pain, Fractures, Gout Endocrine: Yes Diabetes, Non-Insulin dep HEENT: No (cataracts removed) Loss of Vision: Denies Hearing Impairment: Denies Cancer: No Psychosocial: Yes Sleep Difficulties, Anxiety, Depression Integumentary: Yes (hx CELLULITIS LEFT LOWER EXTREMITY) Blood Disorders: No Adverse Reaction/Blood Tranf: Yes (fever-lab stated he had an adverse reaction ) Family Medical History Cardiovascular disease 19 FATHER 19 MOTHER Diabetes mellitus 19 FATHER 19 MOTHER G8 BROTHER Hypertension 19 FATHER Physical Exam Vital Signs Vital Signs - First Documented 08/26/22 12:05 Temp 36.0 Pulse 120 Resp 20 B/P (MAP) 122/79 (93) Pulse Ox 96 Capillary Refill : Less Than 3 Seconds Height, Weight, BMI Height: 6'0.00" Weight: 247lbs. 0.0oz. 112.367386li; 38.00 BMI Method:Stated General Appearance: No Apparent Distress, WD/WN Eyes: Bilateral Eye Normal Inspection, Bilateral Eye PERRL, Bilateral Eye EOMI Neck: Normal Inspection Respiratory: Lungs Clear, Normal Breath Sounds, No Accessory Muscle Use, No Respiratory Distress Cardiovascular: Normal Peripheral Pulses, Tachycardia Gastrointestinal: Non Tender, Soft Extremity: Normal Capillary Refill, Normal Inspection, Other (edema R>L non pitting) Neurologic/Psychiatric: Alert, Oriented x3, No Motor/Sensory Deficits, Normal M ood/Affect Skin: Normal Color, Warm/Dry Progress/Results/Core Measures Suspected Sepsis SIRS Temperature: Pulse: 120 Respiratory Rate: 20 Laboratory Tests 08/26/22 12:30: White Blood Count 8.0 Blood Pressure 122 /79 Mean: 93 Laboratory Tests 08/26/22 12:30: Creatinine 1.22, INR Comment 0.9, Platelet Count 169, Total Bilirubin 0.6 Results/Orders Lab Results Laboratory Tests Test 08/26/22 12:30 08/26/22 12:34 Range/Units White Blood Count 8.0 4.3-11.0 10^3/uL Red Blood Count 4.91 4.30-5.52 10^6/uL Hemoglobin 15.0 13.3-17.7 g/dL Hematocrit 43 40-54 % Mean Corpuscular Volume 88 80-99 fL Mean Corpuscular Hemoglobin 31 25-34 pg Mean Corpuscular Hemoglobin Concent 35 32-36 g/dL Red Cell Distribution Width 13.2 10.0-14.5 % Platelet Count 169 130-400 10^3/uL Mean Platelet Volume 9.0 9.0-12.2 fL Immature Granulocyte % (Auto) 0 % Neutrophils (%) (Auto) 70 42-75 % Lymphocytes (%) (Auto) 21 12-44 % Monocytes (%) (Auto) 6 0-12 % Eosinophils (%) (Auto) 2 0-10 % Basophils (%) (Auto) 0 0-10 % Neutrophils # (Auto) 5.6 1.8-7.8 10^3/uL Lymphocytes # (Auto) 1.7 1.0-4.0 10^3/uL Monocytes # (Auto) 0.5 0.0-1.0 10^3/uL Eosinophils # (Auto) 0.2 0.0-0.3 10^3/uL Basophils # (Auto) 0.0 0.0-0.1 10^3/uL Immature Granulocyte # (Auto) 0.0 0.0-0.1 10^3/uL Prothrombin Time 13.0 12.2-14.7 SEC INR Comment 0.9 0.8-1.4 Activated Partial Thromboplast Time 25 24-35 SEC D-Dimer 0.86 H 0.00-0.49 UG/ML Sodium Level 134 L 135-145 MMOL/L Potassium Level 4.3 3.6-5.0 MMOL/L Chloride Level 99 98-107 MMOL/L Carbon Dioxide Level 22 21-32 MMOL/L Anion Gap 13 5-14 MMOL/L Blood Urea Nitrogen 17 7-18 MG/DL Creatinine 1.22 0.60-1.30 MG/DL Estimat Glomerular Filtration Rate 64 BUN/Creatinine Ratio 14 Glucose Level 162 H 70-105 MG/DL Calcium Level 9.7 8.5-10.1 MG/DL Corrected Calcium 9.5 8.5-10.1 MG/DL Magnesium Level 1.4 L 1.6-2.4 MG/DL Total Bilirubin 0.6 0.1-1.0 MG/DL Aspartate Amino Transf (AST/SGOT) 24 5-34 U/L Alanine Aminotransferase (ALT/SGPT) 32 0-55 U/L Alkaline Phosphatase 103 40-136 U/L Troponin I < 0.028 <0.028 NG/ML B-Type Natriuretic Peptide 274.1 H <100.0 PG/ML Total Protein 7.1 6.4-8.2 GM/DL Albumin 4.2 3.2-4.5 GM/DL SARS-CoV-2 RNA (RT-PCR) Not Detected Not Detecte My Orders Orders - AN REED MD Covid 19 Inhouse Test (08/26/22 12:32) Isolation Central Supply Req (08/26/22 12:32) Cbc With Automated Diff (08/26/22 12:32) Magnesium (08/26/22 12:32) Chest 1 View, Ap/Pa Only (08/26/22 12:32) Ekg Tracing (08/26/22 12:32) Comprehensive Metabolic Panel (08/26/22 12:32) Protime With Inr (08/26/22 12:32) Partial Thromboplastin Time (08/26/22 12:32) O2 (08/26/22 12:32) Monitor-Rhythm Ecg Trace Only (08/26/22 12:32) Lipid Panel (08/27/22 06:00) Ed Iv/Invasive Line Start (08/26/22 12:32) Troponin I Tena (08/26/22 12:32) Bnp Tena (08/26/22 12:32) Fibrin Degradation Products (08/26/22 13:22) Ct Angio Chest W (R/O Pe) (08/26/22 13:56) Ns Iv 1000 Ml (Sodium Chloride 0.9%) (08/26/22 13:56) Iohexol Injection (Omnipaque 350 Mg/Ml 1 (08/26/22 14:15) Received Contrast (Hold Metformin- Contr (08/26/22 14:15) Ns (Ivpb) (Sodium Chloride 0.9% Ivpb Bag (08/26/22 14:15) Ekg Tracing (08/26/22 15:08) Adenosine Injection (Adenocard Injection (08/26/22 15:15) Adenosine Injection (Adenocard Injection (08/26/22 15:30) Adenosine Injection (Adenocard Injection (08/26/22 15:26) Medications Given in ED Current Medications Medications Dose Ordered Sig/Grace Route Start Time Stop Time Status Last Admin Dose Admin Adenosine 6 mg ONCE ONCE IV 08/26/22 15:15 08/26/22 15:16 DC 08/26/22 15:26 6 MG Adenosine 12 mg ONCE ONCE IV 08/26/22 15:30 08/26/22 15:31 DC 08/26/22 15:28 12 MG Iohexol 100 ml ONCE ONCE IV 08/26/22 14:15 08/26/22 14:16 DC 08/26/22 14:32 87 ML Sodium Chloride 100 ml ONCE ONCE IV 08/26/22 14:15 08/26/22 14:16 DC 08/26/22 14:32 80 ML Vital Signs/I&O 08/26/22 12:05 Temp 36.0 Pulse 120 Resp 20 B/P (MAP) 122/79 (93) Pulse Ox 96 Capillary Refill : Less Than 3 Seconds Blood Pressure Mean: 93 Progress Note #1: Time: 15:31 Progress Note Patient seen and evaluated, 67-year-old with "abnormal EKG" from his primary care doctor's office, tachycardia and shortness of breath. Patient evaluation today includes a physical exam, cardiac work-up including CBC, Chem-12, troponin, BNP D-dimer, coags EKG and chest x-ray. Patient exam is relatively unremarkable, what appears to be a sinus tachycardia versus slow SVT in the 1 15-1 20 range, normal blood pressure normal oxygen saturations. No evidence of increased work of breathing or distress on exam. Patient has no chest pain. D ifferential diagnosis includes dysrhythmia, acute coronary syndrome, congestive failure, infection/sepsis. Patient is afebrile, normal labs/chest x-ray/CBC. Chemistry is also normal, troponin undetectable, BNP mildly elevated at 270. D- dimer not mildly elevated at 0.8. Coags normal. EKG shows questionable SVT unsure if I can really see P waves. Case is discussed with Dr. Cr who believes that it may be a slow SVT. He recommended adenosine to try and slow down the rate. Discussed findings and plan of care with the patient and his who are agreeable. 6 mg of adenosine push with no resolution. An additional 12 mg pushed with resolution of the tachycardia to a heart rate of 70, very obviously normal sinus rhythm with basically resolved ST segments. Previously they had been down half to 1 mm. Patient feels comfortable at this time. Will discuss with Dr. Cr, anticip ate discharge to home with follow-up closely with Dr. Cr, Progress Note #2: Time: 15:43 Progress Note discussed with Dr Cr after adenosine; would like the patient to have 180mg cardizem now and daily. Would like to see him in the office tomorrow. Dr Cr is agreeable to discharge and will consider anticoagulation after seeing him in the office. ECG Initial ECG Impression Date: Aug 26, 2022 Initial ECG Impression Time: 12:14 Initial ECG Rate: 119 Initial ECG Rhythm: S.Tach Initial ECG Intervals DC 77 QRS 92 QTc [address] depression leads II, III and aVF as well as leads V3, V4, V5 and V6. Poor R wave progression over leads V1 and V2; no ectopy EKG : EKG Time: 15:28 Rate: 83 Rhythm: Normal Sinus Intervals DC 186 QRS 110 QTc 461 ECG Comparisson: Changed Diagnostic Imaging Diagonstic Imaging: Xray Plain Films/CT/US/NM/MRI: chest Comments [facility] [place], [place] NAME: DWIGHT MAC [facility] REC#: [id number] PT STATUS: REG ER : 1955 PHYSICIAN: AN REED MD ADMIT DATE: 08/26/22/ER Draft Date of Exam:08/26/22 CHEST 1 VIEW, AP/PA ONLY HISTORY: Chest pain. COMPARISON: 04/24/2022. TECHNIQUE: Frontal view of the chest. FINDINGS: Lung volumes are large. There is mild cardiomegaly which is stable since the prior exam. Sternotomy wires and post-CABG changes are seen. There is mild central vascular congestion. There is no consolidation. There is no pleural effusion or pneumothorax. IMPRESSION: 1. Stable mild cardiomegaly with mild central vascular congestion. No acute pulmonary abnormality. Dictated on workstation # [id number] Dict: 08/26/22 1255 Trans: 08/26/22 1305 [id number] Interpreted by: ANKTI HAYES MD Electronically signed by: Diagonstic Imaging: CT Plain Films/CT/US/NM/MRI: chest Comments [facility] [place] [place] NAME: DWIGHT MAC [facility] REC#: [id number] PT STATUS: REG ER : 1955 PHYSICIAN: AN REED MD ADMIT DATE: 08/26/22/ER Draft Date of Exam:08/26/22 CT ANGIO CHEST W (R/O PE) INDICATION: Tachycardia with shortness of breath and weakness. Axial imaging through the chest was performed after the administration of intravenous contrast and utilizing CT angiography protocol. Multiplanar, 3-D and MIP reformations were also performed. Comparison is made with prior CT angiogram of the chest from 02/11/2022. Postoperative changes from median sternotomy are noted. The central, lobar and segmental pulmonary arteries appear to be widely patent. Subsegmental branches are somewhat compromised due to motion artifact and flow artifact. Thoracic aorta is normal caliber. No definite no dissection is seen. No pericardial or pleural fluid identified. No pulmonary infiltrates, nodules or masses are detected. Upper abdomen is unremarkable. IMPRESSION: No evidence of pulmonary embolism or acute aortic disease. Dictated on workstation # [id number] Dict: 08/26/22 1447 Trans: 08/26/22 1454 [id number] Interpreted by: ESSIE MORRIS MD Electronically signed by: Departure Communication (Admissions) Time/Spoke to Consulting Phy: 15:[address] Cr Impression Primary Impression: SVT (supraventricular tachycardia) Disposition: HOME, SELF-CARE Condition: Improved Departure-Patient Inst. Decision time for Depature: 15:35 Referrals: JEROME GEORGE MD (PCP/Family) Primary Care Physician Patient Instructions: Paroxysmal Supraventricular Tachycardia (DC) Add. Discharge Instructions: Continue your current daily medications. We are starting you on Cardizem LA 180 mg once daily. You can start taking this prescription tomorrow. We have given you your first dose here in the emergency department. If you develop palpitations, rapid heartbeat again especially with chest pain, shortness of breath sweating or nausea please come back to the emergency department for reevaluation. Dr. Cr would like to see you in his office tomorrow. Please call this afternoon or first thing in the morning for an appointment tomorrow afternoon. Scripts Diltiazem HCl (Cardizem LA) 180 Mg Tab.er.24h 180 MG PO DAILY for 30 Days, #30 TAB Prov: AN REED MD 08/26/22 Copy Copies To 1: JEROME GEORGE MD Copies To 2: YISSEL CR MD FACP [facility] AN REED MD Aug 26, 2022 12:32
[2022-08-26 12:40] LABS: BASOPHILS % (AUTO) 0 % (0-10); EOSINOPHILS # (AUTO) 0.2 10^3/uL (0.0-0.3); EOSINOPHILS % (AUTO) 2 % (0-10); HEMATOCRIT 43 % (40-54); LYMPHOCYTES # (AUTO) 1.7 10^3/uL (1.0-4.0); LYMPHOCYTES % (AUTO) 21 % (12-44); MEAN CORPUSCULAR HEMOGLOBIN 31 pg (25-34); MEAN CORPUSCULAR HGB CONC 35 g/dL (32-36); MEAN CORPUSCULAR VOLUME 88 fL (80-99); MONOCYTES # (AUTO) 0.5 10^3/uL (0.0-1.0); MONOCYTES % (AUTO) 6 % (0-12); NEUTROPHILS # (AUTO) 5.6 10^3/uL (1.8-7.8); NEUTROPHILS % (AUTO) 70 % (42-75); PLATELET COUNT 169 10^3/uL (130-400)
[2022-08-26 12:48] LABS: INR 0.9 (0.8-1.4)
[2022-08-26 12:55] LABS: ALBUMIN 4.2 GM/DL (3.2-4.5); BILIRUBIN,TOTAL 0.6 MG/DL (0.1-1.0); CALCIUM 9.7 MG/DL (8.5-10.1); CREATININE SERUM 1.22 MG/DL (0.60-1.30); MAGNESIUM 1.4 MG/DL (1.6-2.4); POTASSIUM 4.3 MMOL/L (3.6-5.0); TOTAL PROTEIN 7.1 GM/DL (6.4-8.2)
--- NOTE | 2022-08-26 13:05 | Diagnostic Imaging Report ---
HISTORY: Chest pain. COMPARISON: 04/24/2022. TECHNIQUE: Frontal view of the chest. FINDINGS: Lung volumes are large. There is mild cardiomegaly which is stable since the prior exam. Sternotomy wires and post-CABG changes are seen. There is mild central vascular congestion. There is no consolidation. There is no pleural effusion or pneumothorax. IMPRESSION: 1. Stable mild cardiomegaly with mild central vascular congestion. No acute pulmonary abnormality. Dictated by: Dictated on workstation # [id number]
[2022-08-26] MEDS ORDERED: NS IV 1000 ML 1,000 ML IV STA (13:56)
[2022-08-26] MEDS ORDERED: IOHEXOL 350 MG/ML 100 ML (OMNIPAQUE 350) VIAL IV ONE (14:15)
[2022-08-26] MEDS ORDERED: HOLD METFORMIN - RECEIVED CONTRAST 20 ML VIAL IV SCH (14:15)
[2022-08-26] MEDS ORDERED: NS 100 ML (IVPB) BAG IV ONE (14:15)
--- NOTE | 2022-08-26 14:54 | Diagnostic Imaging Report ---
INDICATION: Tachycardia with shortness of breath and weakness. Axial imaging through the chest was performed after the administration of intravenous contrast and utilizing CT angiography protocol. Multiplanar, 3-D and MIP reformations were also performed. Comparison is made with prior CT angiogram of the chest from 02/11/2022. Postoperative changes from median sternotomy are noted. The central, lobar and segmental pulmonary arteries appear to be widely patent. Subsegmental branches are somewhat compromised due to motion artifact and flow artifact. Thoracic aorta is normal caliber. No definite no dissection is seen. No pericardial or pleural fluid identified. No pulmonary infiltrates, nodules or masses are detected. Upper abdomen is unremarkable. IMPRESSION: No evidence of pulmonary embolism or acute aortic disease. Dictated by: Dictated on workstation # [id number]
[2022-08-26] MEDS ORDERED: ADENOSINE 6 MG/2 ML (ADENOCARD) VIAL IV ONE ×3 (15:15→15:30)
[2022-08-26] MEDS ORDERED: DILT180T PO (15:50)
[2022-08-26 15:54] VITALS: BP 158/84
== END 2022-08-26 16:05 | disposition home or self-care (01) ==
LOC: EDUNIT# 11:58 → ER 12:00
DX: I47.1 Supraventricular tachycardia (principal); G47.30 Sleep apnea, unspecified; R79.89 Other specified abnormal findings of blood chemistry; Z95.1 Presence of aortocoronary bypass graft; Z95.5 Presence of coronary angioplasty implant and graft; Z86.16 Personal history of COVID-19; Z88.8 Allergy status to other drugs, medicaments and biological substances; Z20.822 Contact with and (suspected) exposure to COVID-19; Z79.82 Long term (current) use of aspirin; Z99.89 Dependence on other enabling machines and devices
CPT/HCPCS: 36415; 71045; 71275; 80053; 83735; 83880; 84484; 85025; 85379; 85610; 85730; 87636; 93005; 93041

== ENCOUNTER 2022-09-23 06:23 | Outpatient (RCR) | payer OTHER, MEDICARE ==
[~2022-09-23 06:23] MED LIST changes: +DILT180T PO
== END 2022-09-24 | disposition home or self-care (01) ==
LOC: CR3 06:23
PROVIDERS: ATTEND Internal Medicine Cardiovascular Disease
DX: Z29.8 Encounter for other specified prophylactic measures (principal)

== ENCOUNTER → 2022-11-02 | Outpatient (CLI) | payer OTHER, MEDICARE | LOC: LAB 06:37 | PROVIDERS: ATTEND Internal Medicine Cardiovascular Disease | DX: I25.10 Atherosclerotic heart disease of native coronary artery without angina pectoris (principal); I65.23 Occlusion and stenosis of bilateral carotid arteries; I47.1 Supraventricular tachycardia; I11.0 Hypertensive heart disease with heart failure; I50.33 Acute on chronic diastolic (congestive) heart failure; G47.33 Obstructive sleep apnea (adult) (pediatric); E78.2 Mixed hyperlipidemia; M79.89 Other specified soft tissue disorders; Z95.1 Presence of aortocoronary bypass graft; Z95.818 Presence of other cardiac implants and grafts; Z71.89 Other specified counseling | CPT/HCPCS: 36415; 83735; 83880 ==

== ENCOUNTER 2022-11-20 06:52 | Outpatient (RCR) | payer OTHER, MEDICARE | END 2022-11-22 | disposition home or self-care (01) | LOC: CR3 06:52 | PROVIDERS: ATTEND Internal Medicine Cardiovascular Disease | DX: Z29.8 Encounter for other specified prophylactic measures (principal) ==

== ENCOUNTER → 2022-12-10 | Outpatient (CLI) | payer OTHER, MEDICARE ==
[~2022-12-10] MED LIST changes: -DOXA4TAB PO; +DOXA4TAB96 PO
--- NOTE | 2022-12-10 13:48 | Diagnostic Imaging Report ---
PROCEDURE: MRI lumbar spine. TECHNIQUE: Multiplanar, multisequence MRI of the lumbar spine was performed without contrast. INDICATION: Low back pain with right-sided sciatica. COMPARISON: 10/03/2020 FINDINGS: There is grade 1 anterolisthesis at L3-L4 and L4-L5. Vertebral body heights are preserved. There is mild disc height loss at L4-L5. No acute fracture is seen. Soft tissues about the lumbar spine demonstrate no acute abnormality. The conus terminates in appropriate position. There is a prominent right renal pelvis, may represent an extrarenal pelvis. T12-L1: Mild disc bulge. No spinal canal stenosis. No foraminal stenosis. L1-L2: Mild disc bulge and facet arthropathy and ligamentous infolding. No spinal canal stenosis or foraminal stenosis. L2-L3: Diffuse disc bulge with facet arthropathy and ligamentous infolding. Mildly prominent epidural fat. Severe spinal canal stenosis with narrowing of the lateral recesses, particularly on the right. Moderate right and mild left foraminal stenosis. L3-L4: Diffuse disc bulge and facet arthropathy and ligamentous infolding. Severe spinal canal stenosis with narrowing of the lateral recesses bilaterally. Severe right and moderate left foraminal stenosis. L4-L5: Diffuse disc bulge with facet arthropathy and ligamentous infolding. Very severe spinal canal stenosis with effacement of the lateral recesses bilaterally. Moderate bilateral foraminal stenosis. L5-S1: Diffuse disc bulge. No spinal canal stenosis. No foraminal stenosis. IMPRESSION: 1. Degenerative changes throughout the lumbar spine with severe spinal canal stenosis at L2-L3, L3-L4 and L4-L5. L2-L3 stenosis appears partially due to prominent epidural fat. 2. Multilevel foraminal stenosis, most severe at L3-L4 on the right. 3. Mildly prominent right renal pelvis, may be extrarenal pelvis. Dictated by: Dictated on workstation # [id number]
== END ==
LOC: RAD 12:04
PROVIDERS: ATTEND Family Medicine
DX: M48.061 Spinal stenosis, lumbar region without neurogenic claudication (principal)
CPT/HCPCS: 72148

== ENCOUNTER → 2023-01-22 | Outpatient (RCR) | payer OTHER, MEDICARE ==
[~2023-01-22] MED LIST changes: -LOSA100T57 PO; +LOSA100T58 PO; +POTA-330 PO; -POTA-51 PO
== END | disposition home or self-care (01) ==
LOC: CR3 11-23 06:49
PROVIDERS: ATTEND Internal Medicine Cardiovascular Disease
DX: Z29.8 Encounter for other specified prophylactic measures (principal)

== ENCOUNTER → 2023-03-24 | Outpatient (RCR) | payer OTHER, MEDICARE ==
[~2023-03-24] MED LIST changes: -POTA10CA44 PO; +POTA10CA84 PO
== END | disposition home or self-care (01) ==
LOC: CR3 01-25 06:16
PROVIDERS: ATTEND Internal Medicine Cardiovascular Disease
DX: Z29.8 Encounter for other specified prophylactic measures (principal)

== ENCOUNTER 2023-05-10 07:46 | Outpatient (RCR) | payer OTHER, MEDICARE | END 2023-05-24 | disposition home or self-care (01) | LOC: CR3 07:46 | PROVIDERS: ATTEND Internal Medicine Cardiovascular Disease | DX: Z01.89 Encounter for other specified special examinations (principal) ==

== ENCOUNTER → 2023-05-27 | Outpatient (CLI) | payer OTHER, MEDICARE ==
[~2023-05-27] MED LIST changes: +GADOTERATE 0.5 MMOL/ML (CLARISCAN) 20 ML VIAL IV ONE
--- NOTE | 2023-05-27 13:28 | Diagnostic Imaging Report ---
PROCEDURE: MRI lumbar spine with and without contrast. TECHNIQUE: Multiplanar, multisequence MRI of the lumbar spine was performed with and without contrast. INDICATION: Chronic back pain, previous lumbar surgery. COMPARISON: Preoperative lumbar MR dated 12/10/2022. FINDINGS: Since the prior, there has been posterior and interbody fusion at L4-L5 with bipedicular screws and vertical rods with laminectomy. There is improved alignment at the L4-L5 level with decreased grade 1 anterolisthesis of L4 on L5 now of about 2 mm. Remaining levels align normally. There is a small fluid collection as an expected finding within the laminectomy bed separable from the thecal sac and resulting in no stenosis most suggestive of a seroma measuring maximal 2.5 cm transverse x 2 cm AP x 3.8 cm cephalocaudal and showed no rim enhancement or complexity. No acute intrathecal abnormality. The conus appeared normal. No marrow edema. T12-L1: Anterior osteophyte disc material results in no stenosis and is stable. L1-L2: This level and disc are stable and unremarkable. No stenosis. L2-L3: Some prominence of the dorsal epidural fat, thickening of the ligamenta flava, and facet arthrosis with mild canal stenosis and mild biforaminal narrowing, stable. L3-L4: Buckle thickened ligamenta flava and fluid-containing hypertrophied and degenerative facet joints result in a moderate severity of canal stenosis, unchanged. There is akjqjmmy-fz-vcdjdk right and moderate left foraminal stenosis, not significantly changed. L4-L5: Interval laminectomy with posterior interbody fusion is again associated with an improvement in alignment and marked reduction in canal stenosis, essentially resolved. There is jjly-pi-kgdbvizh left and mild right foraminal stenosis, improved. There is some enhancing dorsal and left greater than right amita-thecal enhancing epidural tissue measuring a thickness of 9 mm. This did not distort the thecal sac and mildly involves the left lateral recess, the right is spared, and suggestive of some epidural fibrosis. The ventral epidural space is normal, and there is no acute or chronic intrathecal abnormality. L5-S1: Degenerative disc bulge and endplate osteophytes result in mild right foraminal stenosis with no significant canal stenosis or change. IMPRESSION: 1. Interval L4-L5 fusion with improved alignment and significant improvements in stenosis of the canal and neural foramina at that level. Small dorsal epidural seroma felt incidental without impingement upon the thecal sac. There does appear to be some enhancing epidural tissue, predominantly posteriorly and to the left, at the L4-L5 level suggestive of a rim of epidural fibrotic tissue extending into the left lateral recess. No evidence for arachnoiditis or acute intrathecal pathology. No acute bony abnormality. 2. Elsewhere stable degenerative changes and oqkb-np-aviqhksu stenoses as above. Dictated by: Dictated on workstation # [id number]
== END ==
LOC: RAD 07:57
PROVIDERS: ATTEND Nurse Practitioner Family
DX: M48.061 Spinal stenosis, lumbar region without neurogenic claudication (principal); M47.26 Other spondylosis with radiculopathy, lumbar region; M25.78 Osteophyte, vertebrae; M51.27 Other intervertebral disc displacement, lumbosacral region; Z98.1 Arthrodesis status
CPT/HCPCS: 72158

== ENCOUNTER → 2023-06-02 | Outpatient (CLI) | payer OTHER, MEDICARE ==
[~2023-06-02] MED LIST changes: -GADOTERATE 0.5 MMOL/ML (CLARISCAN) 20 ML VIAL IV ONE
[2023-06-02 08:12] LABS: CALCIUM 9.7 MG/DL (8.5-10.1); CREATININE SERUM 1.42 MG/DL (0.60-1.30); MAGNESIUM 1.7 MG/DL (1.6-2.4); POTASSIUM 4.6 MMOL/L (3.6-5.0)
== END ==
LOC: LAB 07:42
PROVIDERS: ATTEND Internal Medicine Cardiovascular Disease
DX: I11.0 Hypertensive heart disease with heart failure (principal); I50.33 Acute on chronic diastolic (congestive) heart failure; I25.10 Atherosclerotic heart disease of native coronary artery without angina pectoris; I65.23 Occlusion and stenosis of bilateral carotid arteries; G47.33 Obstructive sleep apnea (adult) (pediatric); E78.2 Mixed hyperlipidemia; M79.89 Other specified soft tissue disorders; I47.19 Other supraventricular tachycardia; Z71.89 Other specified counseling; Z95.1 Presence of aortocoronary bypass graft
CPT/HCPCS: 36415; 80048; 83735

== ENCOUNTER 2023-06-08 15:37 | Emergency (ER) | payer OTHER, MEDICARE ==
[~2023-06-08] VITALS: Ht 182.8 cm; Wt 122.4 kg
[2023-06-08] MEDS ORDERED: morphine INJ 4 MG/ML 1 ML (VIAL/SYRINGE) IVP ONE (16:15)
--- NOTE | 2023-06-08 16:15 | ED Back Pain ---
General Chief Complaint: Back Problems Stated Complaint: GENERALIZED WEAKNESS + BACK PAIN Nursing Triage Note: PT ARRIVED BY [facility] WITH CC OF LOWER BACK PAIN, WEAKNESS, AND NUMBNESS IN BOTH LEGS AFTER GETTING OUT OF THE SHOWER AND FELL. PT HAD LOWER BACK SURGERY IN FEBRUARY AND HAS HAD AN INCREASE IN PAIN FOR THE LAST 3 WEEKS. Source of Information: Patient Exam Limitations: No Limitations History of Present Illness Date Seen by Provider: Jun 08, 2023 Time Seen by Provider: 15:50 Initial Comments Mr. Alas presents to the ER via EMS with complaints of lower back pain, numbness and weakness of his lower extremities equal bilaterally. He has lumbar fusion with Dr. Lowe at [facility] in [place] about 3 months ago. He recovered fairly well and was active at one month post op. However, he has gradually had increased pain and loss of function over the past 2 months. He had a gentle fall a few days ago outside his home without injury. He additionally had a gentle fall today after getting out of the shower. He denies trauma as he lowered himself to hands and knees without injury. The prior fall was more jarring. He denies blunt trauma to the back. He was eventually able to ambula te from the shower to his recliner but then could not stand or get out of the chair. He denies bowel or bladder or saddle paresthesias. He reports needing to use his walker more frequently recently. He reports some aching of the hips as well. Allergies and Home Medications Allergies Coded Allergies: amiodarone (Verified Allergy, Severe, Anaphylaxis, 10/08/21) SYSTEMIC oxycodone (Verified Adverse Reaction, Mild, LETHARGIC, 05/27/23) Patient Home Medication List Home Medication List Reviewed: Yes Acetaminophen (Tylenol Extra Strength) 500 Mg Tablet, 1,000 MG PO BID, (Reported) Entered as Reported by: SHERYL PIÑA on 03/22/19 1353 Allopurinol (Allopurinol) 100 Mg Tablet, 100 MG PO BID, (Reported) Entered as Reported by: SHERYL PIÑA on 03/22/19 1346 Amlodipine Besylate (Amlodipine Besylate) 5 Mg Tablet, 5 MG PO DAILY Prescribed by: RAMIREZ KAYE on 04/26/22 0955 Aspirin (Aspirin EC) 81 Mg Tablet., 81 MG PO DAILY, (Reported) Entered as Reported by: GIL CHRISTINE on 02/12/22 1026 Atorvastatin Calcium (Atorvastatin Calcium) 80 Mg Tablet, 80 MG PO HS, (Reported) Entered as Reported by: GIL CHRISTINE on 02/12/22 1026 Brexpiprazole (Rexulti) 1 Mg Tablet, 1 MG PO DAILY, (Reported) Entered as Reported by: INES DENTON on 10/08/21 1341 Cholecalciferol (Vitamin D3) (Vitamin D3) 25 Mcg (1000 Unit) Tablet, 50 MCG PO DAILY, (Reported) Entered as Reported by: GIL CHRISTINE on 02/12/22 1026 Desvenlafaxine Succinate (Desvenlafaxine Succinate ER) 50 Mg Tab.er.24h, 50 MG PO HS, (Reported) Entered as Reported by: GIL CHRISTINE on 02/12/22 1026 Dexlansoprazole (Dexilant) 60 Mg Cap.bp, 60 MG PO BID, (Reported) Entered as Reported by: SHERYL PIÑA on 03/22/19 1354 Diltiazem HCl (Cardizem LA) 180 Mg Tab.er.24h, 180 MG PO DAILY Prescribed by: AN REED on 08/26/22 1550 Docusate Sodium (Docusate Sodium) 100 Mg Capsule, 100 MG PO HS, (Reported) Entered as Reported by: VALDEMAR MARCANO on 05/12/22 0738 Doxazosin Mesylate (Cardura Xl) 8 Mg Tab.er.24, 8 MG PO BID Prescribed by: RAMIREZ KAYE on 04/26/22 0955 Furosemide (Furosemide) 40 Mg Tablet, 40 MG PO DAILY, (Reported) Entered as Reported by: SHERYL PIÑA on 03/22/19 1346 Hydralazine HCl (Hydralazine HCl) 25 Mg Tablet, 25 MG PO PRN PRN for BLOOD PRESSURE, (Reported) Entered as Reported by: VALDEMAR MARCANO on 05/12/22 0738 Isosorbide Mononitrate (Isosorbide Mononitrate ER) 30 Mg Tab.er.24h, 30 MG PO DAILY Prescribed by: RAMIREZ KAYE on 04/26/22 0955 Lisinopril (Lisinopril) 40 Mg Tablet, 40 MG PO HS, (Reported) Entered as Reported by: GIL CHRISTINE on 02/12/22 1026 Magnesium Oxide (Magnesium Oxide) 400 Mg Tablet, 400 MG PO DAILY, (Reported) Entered as Reported by: VALDEMAR MARCANO on 05/12/22 0738 Metolazone (Metolazone) 5 Mg Tablet, 5 MG PO DAILY Prescribed by: YISSEL SHOEMAKER on 05/12/22 1112 Metoprolol Tartrate (Metoprolol Tartrate) 100 Mg Tablet, 100 MG PO BID, (Reported) Entered as Reported by: SHERYL PIÑA on 03/22/19 1346 Potassium Chloride (Potassium Chloride) 20 Meq Tablet.er, 20 MEQ PO BID Prescribed by: YISSEL SHOEMAKER on 05/12/22 1112 Sulfamethoxazole/Trimethoprim (Bactrim 400-80 mg Tablet) 400 Mg-80 Mg Tablet, 0.5 TAB PO HS, (Reported) Entered as Reported by: VALDEMAR MARCANO on 05/12/22 0738 Tramadol HCl (Tramadol HCl) 50 Mg Tablet, 50 MG PO DAILY, (Reported) Entered as Reported by: SHERYL PIÑA on 03/22/19 1354 Tramadol HCl (Tramadol HCl) 50 Mg Tablet, 100 MG PO HS, (Reported) Entered as Reported by: MAYI PABLO on 10/16/20 0916 Trazodone HCl (Trazodone HCl) 50 Mg Tablet, 50 MG PO HS, (Reported) Entered as Reported by: ALEKSANDER GODDARD on 06/28/19 1054 Ubidecarenone (Co Q10) 200 Mg Capsule, 100 MG PO DAILY, (Reported) Entered as Reported by: SHERYL PIÑA on 03/22/19 1354 Review of Systems Constitutional: no symptoms reported EENTM: no symptoms reported Respiratory: no symptoms reported Cardiovascular: no symptoms reported Gastrointestinal: no symptoms reported Genitourinary: no symptoms reported Musculoskeletal: see HPI Skin: no symptoms reported Psychiatric/Neurological: See HPI Past Nnobypk-Szfqrf-Bddcix Hx Patient Social History Tobacco Use?: No Substance use?: No Alcohol Use?: No Immunizations Up To Date Tetanus Booster (TDap): Unknown PED Vaccines UTD: Yes First/Initial COVID19 Vaccinat: 09/06/20 Second COVID19 Vaccination [place]: 10/04/20 Third COVID19 Vaccination Date: APRIL 2021 Seasonal Allergies Seasonal Allergies: Yes Past Medical History Surgery/Hospitalization HX: DIABETIC NO INSULIN, NEUROPATHY, HTN, QUADRUPLE BYPASS, GOUT, DEPRESSION, BARRETS ESOPHAGUS, ALCOHOLISM RECOVERY Surgeries: Yes (CTR SARAHI,ANT COMPARTMENT SYNDROM R LEG, BILAT knee scope,LOOP RECORDER) Abdominal, CABG, Gallbladder, Orthopedic, Tonsillectomy Respiratory: Yes (SLEEP APNEA-USES CPAP, DYSPNEA) Pneumonia, Sleep Apnea Currently Using CPAP: Yes Currently Using BIPAP: No Cardiac: Yes (2 STENTS-CABG x 4, HAS LOOP RECORDER, EDEMA) Atrial Fibrillation, Chronic Edema/Swelling, Coronary Artery Disease, High Cholesterol, Hypertension Neurological: Yes ( 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) Seizure Disorder Reproductive Disorders: No Sexually Transmitted Disease: No HIV/AIDS: No Genitourinary: Yes (renal issues after CABG, ERECTYLE DYSFUNCTION) Benign Prostatic Hyperpl Gastrointestinal: Yes (UMB HERNIA REPAIR) Gastroesophageal Reflux, Hiatal Hernia Musculoskeletal: Yes (RIB FX) Degenerate Disk Disease, Arthritis, Chronic Back Pain, Fractures, Gout Endocrine: Yes Diabetes, Non-Insulin dep HEENT: No (cataracts removed) Loss of Vision: Denies Hearing Impairment: Denies Cancer: No Psychosocial: Yes Sleep Difficulties, Anxiety, Depression Integumentary: Yes (hx CELLULITIS LEFT LOWER EXTREMITY) Blood Disorders: No Adverse Reaction/Blood Tranf: Yes (fever-lab stated he had an adverse reaction ) Family Medical History Cardiovascular disease 19 FATHER 19 MOTHER Diabetes mellitus 19 FATHER 19 MOTHER G8 BROTHER Hypertension 19 FATHER Physical Exam Vital Signs Capillary Refill : Height, Weight, BMI Height: 6'0.00" Weight: 247lbs. 0.0oz. 112.062055sb; 36.00 BMI Method:Stated General Appearance: No Apparent Distress, WD/WN, Obese HEENT: PERRL/EOMI, Normal ENT Inspection Neck: Normal Inspection Cardiovascular: Regular Rate, Rhythm, No Edema, No Murmur Respiratory: Lungs Clear, Normal Breath Sounds, No Accessory Muscle Use Gastrointestinal: Non Tender, Soft Extremity: Normal Inspection, No Pedal Edema, Other (No significant pain with palpation of the lateral hips or hip joints. No pain with rotation of the hips) Neurologic/Psychiatric: Alert, Oriented x3, Normal Mood/Affect, caser shoe parts II-XII Norm as Tested, Other (Loss of sensation from the toes to mid lower leg bilaterally. This is pickens from baseline neuropathy that typically causes numbness of only the distal foot. Toes warm and pink with normal capillary refill less than 3 seconds) Skin: Normal Color, Warm/Dry Progress/Results/Core Measures Results/Orders Lab Results Laboratory Tests Test 06/08/23 15:44 Range/Units White Blood Count 6.2 4.3-11.0 10^3/uL Red Blood Count 4.65 4.30-5.52 10^6/uL Hemoglobin 13.3 13.3-17.7 g/dL Hematocrit 40 40-54 % Mean Corpuscular Volume 87 80-99 fL Mean Corpuscular Hemoglobin 29 25-34 pg Mean Corpuscular Hemoglobin Concent 33 32-36 g/dL Red Cell Distribution Width 14.2 10.0-14.5 % Platelet Count 205 130-400 10^3/uL Mean Platelet Volume 8.9 L 9.0-12.2 fL Immature Granulocyte % (Auto) 1 % Neutrophils (%) (Auto) 65 42-75 % Lymphocytes (%) (Auto) 24 12-44 % Monocytes (%) (Auto) 7 0-12 % Eosinophils (%) (Auto) 3 0-10 % Basophils (%) (Auto) 1 0-10 % Neutrophils # (Auto) 4.0 1.8-7.8 10^3/uL Lymphocytes # (Auto) 1.5 1.0-4.0 10^3/uL Monocytes # (Auto) 0.4 0.0-1.0 10^3/uL Eosinophils # (Auto) 0.2 0.0-0.3 10^3/uL Basophils # (Auto) 0.0 0.0-0.1 10^3/uL Immature Granulocyte # (Auto) 0.0 0.0-0.1 10^3/uL Sodium Level 134 L 135-145 MMOL/L Potassium Level 3.9 3.6-5.0 MMOL/L Chloride Level 101 98-107 MMOL/L Carbon Dioxide Level 23 21-32 MMOL/L Anion Gap 10 5-14 MMOL/L Blood Urea Nitrogen 24 H 7-18 MG/DL Creatinine 1.24 0.60-1.30 MG/DL Estimat Glomerular Filtration Rate 63 BUN/Creatinine Ratio 19 Glucose Level 153 H 70-105 MG/DL Calcium Level 9.0 8.5-10.1 MG/DL Corrected Calcium 9.0 8.5-10.1 MG/DL Magnesium Level 1.5 L 1.6-2.4 MG/DL Total Bilirubin 0.3 0.1-1.0 MG/DL Aspartate Amino Transf (AST/SGOT) 24 5-34 U/L Alanine Aminotransferase (ALT/SGPT) 21 0-55 U/L Alkaline Phosphatase 116 40-136 U/L Total Protein 7.1 6.4-8.2 GM/DL Albumin 4.0 3.2-4.5 GM/DL My Orders Orders - BLANCA HOPPER MD Ct Lumbar Spine W Wo (06/08/23 16:08) Ct Pelvis W (06/08/23 16:08) Cbc And Automated Diff (06/08/23 16:11) Comprehensive Metabolic Panel (06/08/23 16:11) Magnesium (06/08/23 16:11) Ed Iv/Invasive Line Start (06/08/23 16:11) Morphine Injection (Morphine Injection (06/08/23 16:15) Iv Push Casing Builder Ed (06/08/23 ) Medications Given in ED Vital Signs/I&O Blood Pressure Mean: 107 Progress Progress Note : Progress Note Labs were reviewed and interpreted by me. Sodium and magnesium were scantly low. CT studies of the lumbar spine and pelvis were obtained. Radiologist's report was reviewed. Pain was treated with morphine. Dwight slowly regained function and pain resolved. He was ultimately able to get up and ambulate with a walker. He regained baseline sensation and strength in the lower extremities. I discussed the situation with Dr. West. Neurosurgeon network contract manager for Dr. Lowe. I reviewed CT imaging with him. Due to the improvement in symptoms and functionality, he recommended follow-up in the clinic tomorrow. See discharge instructions for further discussion. Diagnostic Imaging Diagonstic Imaging: CT Plain Films/CT/US/NM/MRI: other (Lumbar spine) Comments NAME: DWIGHT ALAS MED REC#: [id number] PT STATUS: REG ER : 1955 PHYSICIAN: BLANCA HOPPER MD ADMIT DATE: 06/08/23/ER Signed Date of Exam:06/08/23 CT LUMBAR SPINE W WO PROCEDURE: CT lumbar spine with and without contrast. TECHNIQUE: Axial images were obtained through the lumbar spine with and without intravenous contrast and reformatted into coronal and sagittal planes. Auto Exposure Controls were utilized during the CT exam to meet ALARA standards for radiation dose reduction. INDICATION: MRI of the lumbar spine on 05/27/2023 FINDINGS: Post surgical changes from prior posterior fusion and laminectomy at L4-L5. No evidence of screw fracture or loosening. The pedicle screws are well aligned. Soft tissue thickening in the paraspinal musculature at L4-L5 likely representing scarring. The spinal canal is not well evaluated L4-L5. There may be some thickening in granulation tissue at L4-L5 resulting in some spinal canal narrowing. If there is persistent clinical concern consider MRI with and without contrast for further workup. The included views of the abdomen demonstrates aortoiliac atherosclerosis without significant stenosis. No lytic or sclerotic bone lesion. No acute fracture or dislocation of the lumbar spine. Stable lumbar lordosis with unchanged 0.6 cm anterolisthesis of L4 on L5. IMPRESSION: Allowing for image quality degradation due to metallic artifact there may be some moderate spinal canal stenosis at L4-L5 due epidural thickening (image 66 series 6). Consider MRI of the lumbar spine with and without contrast for further workup. Well aligned pedicle screws. No screw fracture or loosening. Dictated by: Dictated on workstation # [id number] Dict: 06/08/231645 Trans: 06/08/231652 [facility] [place] [id number] Interpreted by: HANS CABELLO DO Electronically signed by: HANS CABELLO DO 06/08/231652 Comments NAME: DWIGHT ALAS [facility] REC#: [id number] PT STATUS: REG ER : 1955 PHYSICIAN: BLANCA HOPPER MD ADMIT DATE: 06/08/23/ER Signed Date of Exam:06/08/23 CT PELVIS W PROCEDURE: CT pelvis with contrast. TECHNIQUE: Oral and intravenous contrast were administered with pelvic CT performed. Auto Exposure Controls were utilized during the CT exam to meet ALARA standards for radiation dose reduction. INDICATION: Lower extremity pain. Recent fall and spinal surgery. COMPARISON: CT of the lumbar spine performed concurrently. FINDINGS: No acute fracture within the pelvis or proximal femurs. Degenerative ankylosis across the right SI joint is noted. There is a small region of avascular necrosis of the right femoral head without subchondral collapse. No avascular necrosis left femoral head. Sclerotic intramedullary region in the right ilium is very likely chronic and benign in nature. Hypertrophic degenerative changes of the symphysis pubis are noted. No free pelvic fluid. Urinary bladder is normal in appearance. Small fat-containing indirect left inguinal hernia. IMPRESSION: 1. No acute fracture within the pelvis or proximal femurs. 2. Small region of avascular necrosis of right femoral head is without subchondral collapse. Dictated by: Dictated on workstation # [id number] Dict: 06/08/23 1648 Trans: 06/08/231700 [facility] [id number] Interpreted by: MIN PALMA MD Electronically signed by: MIN PALMA MD 06/08/231700 Departure Impression Primary Impression: Lower extremity numbness Additional Impressions: Lower extremity weakness Qualified Codes: R29.898 - Other symptoms and signs involving the musculoskeletal system Lumbar spinal stenosis Qualified Codes: M48.062 - Spinal stenosis, lumbar region with neurogenic claudication Postoperative pain after spinal surgery Disposition: 01 HOME, SELF-CARE Condition: Improved Departure-Patient Inst. Decision time for Depature: 19:15 Referrals: JEROME GEORGE MD (PCP/Family) Primary Care Physician Patient Instructions: Spinal stenosis Add. Discharge Instructions: Please follow-up with Dr. West at [facility] tomorrow at 9:30 AM (June 09). He is located in [place] [address] in the office building next to the hospital. Continue your medications as previously directed. If you need more pain control, you may try taking gabapentin 600 mg or take 2 of the hydrocodone. Do not increase both gabapentin and hydrocodone. If you increase these medications, be sure to use the CPAP through the duration of the night or during any napping. Ambulate with extreme caution and always use the walker until you are otherwise directed by your neurosurgical team. Return to care if you have worsening symptoms that include loss of motor control of your legs, loss of feeling in your legs, numbness in the groin, problems with bowel or bladder control, fever, etc. All discharge instructions reviewed with patient and/or family. Voiced understanding. BLANCA HOPPER MD Jun 08, 2023 16:15
[2023-06-08 16:17] LABS: BASOPHILS % (AUTO) 1 % (0-10); EOSINOPHILS # (AUTO) 0.2 10^3/uL (0.0-0.3); EOSINOPHILS % (AUTO) 3 % (0-10); HEMATOCRIT 40 % (40-54); HEMOGLOBIN 13.3 g/dL (13.3-17.7); LYMPHOCYTES # (AUTO) 1.5 10^3/uL (1.0-4.0); LYMPHOCYTES % (AUTO) 24 % (12-44); MEAN CORPUSCULAR HEMOGLOBIN 29 pg (25-34); MEAN CORPUSCULAR HGB CONC 33 g/dL (32-36); MEAN CORPUSCULAR VOLUME 87 fL (80-99); MEAN PLATELET VOLUME 8.9 fL (9.0-12.2); MONOCYTES # (AUTO) 0.4 10^3/uL (0.0-1.0); MONOCYTES % (AUTO) 7 % (0-12); NEUTROPHILS % (AUTO) 65 % (42-75); PLATELET COUNT 205 10^3/uL (130-400); WHITE BLOOD COUNT 6.2 10^3/uL (4.3-11.0)
[2023-06-08 16:20] LABS: POTASSIUM 3.9 MMOL/L (3.6-5.0)
[2023-06-08 16:22] LABS: TOTAL PROTEIN 7.1 GM/DL (6.4-8.2)
[2023-06-08 16:24] LABS: BILIRUBIN,TOTAL 0.3 MG/DL (0.1-1.0)
[2023-06-08 16:26] LABS: CREATININE SERUM 1.24 MG/DL (0.60-1.30)
[2023-06-08 16:29] LABS: MAGNESIUM 1.5 MG/DL (1.6-2.4)
--- NOTE | 2023-06-08 16:51 | Diagnostic Imaging Report ---
PROCEDURE: CT pelvis with contrast. TECHNIQUE: Oral and intravenous contrast were administered with pelvic CT performed. Auto Exposure Controls were utilized during the CT exam to meet ALARA standards for radiation dose reduction. INDICATION: Lower extremity pain. Recent fall and spinal surgery. COMPARISON: CT of the lumbar spine performed concurrently. FINDINGS: No acute fracture within the pelvis or proximal femurs. Degenerative ankylosis across the right SI joint is noted. There is a small region of avascular necrosis of the right femoral head without subchondral collapse. No avascular necrosis left femoral head. Sclerotic intramedullary region in the right ilium is very likely chronic and benign in nature. Hypertrophic degenerative changes of the symphysis pubis are noted. No free pelvic fluid. Urinary bladder is normal in appearance. Small fat-containing indirect left inguinal hernia. IMPRESSION: 1. No acute fracture within the pelvis or proximal femurs. 2. Small region of avascular necrosis of right femoral head is without subchondral collapse. Dictated by: Dictated on workstation # [id number]
--- NOTE | 2023-06-08 16:54 | Diagnostic Imaging Report ---
PROCEDURE: CT lumbar spine with and without contrast. TECHNIQUE: Axial images were obtained through the lumbar spine with and without intravenous contrast and reformatted into coronal and sagittal planes. Auto Exposure Controls were utilized during the CT exam to meet ALARA standards for radiation dose reduction. INDICATION: MRI of the lumbar spine on 05/27/2023 FINDINGS: Post surgical changes from prior posterior fusion and laminectomy at L4-L5. No evidence of screw fracture or loosening. The pedicle screws are well aligned. Soft tissue thickening in the paraspinal musculature at L4-L5 likely representing scarring. The spinal canal is not well evaluated L4-L5. There may be some thickening in granulation tissue at L4-L5 resulting in some spinal canal narrowing. If there is persistent clinical concern consider MRI with and without contrast for further workup. The included views of the abdomen demonstrates aortoiliac atherosclerosis without significant stenosis. No lytic or sclerotic bone lesion. No acute fracture or dislocation of the lumbar spine. Stable lumbar lordosis with unchanged 0.6 cm anterolisthesis of L4 on L5. IMPRESSION: Allowing for image quality degradation due to metallic artifact there may be some moderate spinal canal stenosis at L4-L5 due epidural thickening (image 66 series 6). Consider MRI of the lumbar spine with and without contrast for further workup. Well aligned pedicle screws. No screw fracture or loosening. Dictated by: Dictated on workstation # [id number]
[2023-06-08 19:27] VITALS: BP 147/73
== END 2023-06-08 19:25 | disposition home or self-care (01) ==
LOC: EDUNIT# 15:37 → ER 15:38
DX: M48.061 Spinal stenosis, lumbar region without neurogenic claudication (principal); G89.18 Other acute postprocedural pain; G47.30 Sleep apnea, unspecified; Z99.89 Dependence on other enabling machines and devices
CPT/HCPCS: 36415; 72133; 72193; 80053; 83735; 85025; 96374

== ENCOUNTER → 2023-06-21 | Outpatient (CLI) | payer OTHER ==
[~2023-06-21] MED LIST changes: +GADOTERATE 0.5 MMOL/ML (CLARISCAN) 20 ML VIAL IV ONE
--- NOTE | 2023-06-21 14:57 | Diagnostic Imaging Report ---
PROCEDURE: MRI lumbar spine with and without contrast. TECHNIQUE: Multiplanar, multisequence MRI of the lumbar spine was performed with and without contrast. INDICATION: Chronic low back pain. History of prior lumbar surgery. COMPARISON: 05/27/2023. 06/08/2023. FINDINGS: No acute fracture or dislocation in the lumbar spine. Stable posterior fusion and laminectomy at L4-L5 with stable hematoma/seroma in the laminectomy bed. Stable enhancement of the scar tissue in the laminectomy bed. No evidence of acute disc bulge or spinal canal stenosis. Stable high-grade spinal canal stenosis at the L3-L4 level. Effusions are seen in the bilateral facet joints at the L3-L4 level. No associated enhancement. There is effacement of the thecal sac at the L2 level, L3 level, and L5 level extending to the sacrum due to epidural lipomatosis. No abnormal enhancement involving the conus or nerve roots of the cauda equina. No evidence of epidural abscess. IMPRESSION: 1. No acute fracture or dislocation in the lumbar spine. 2. Stable high-grade spinal canal stenosis at the L3-L4 level. Effusions are seen in the bilateral facet joints at L3-L4, suggestive of nonspecific synovitis. 3. Epidural lipomatosis with effacement of the thecal sac at the L2 level, L3 level, and L5 level extending into the sacrum. 4. Stable postsurgical changes of posterior fusion and laminectomy at L4-L5 with stable enhancement of the scar tissue in the laminectomy bed. No evidence of abscess. Dictated by: Dictated on workstation # [id number]
== END ==
LOC: RAD 12:40
DX: M47.816 Spondylosis without myelopathy or radiculopathy, lumbar region (principal); M48.061 Spinal stenosis, lumbar region without neurogenic claudication; G89.18 Other acute postprocedural pain; E88.2 Lipomatosis, not elsewhere classified; Z98.1 Arthrodesis status
CPT/HCPCS: 72158

== ENCOUNTER → 2023-06-24 | Outpatient (CLI) | payer OTHER, MEDICARE ==
[~2023-06-24] MED LIST changes: +CHOL200025 PO; +DILT180C85 PO; +GABA300C PO; -GADOTERATE 0.5 MMOL/ML (CLARISCAN) 20 ML VIAL IV ONE; +LIRA0.6P3 SQ; +SULF-11 PO; +UBID100C44 PO
== END ==
LOC: ORTHO 13:53
PROVIDERS: ATTEND Orthopaedic Surgery
DX: M16.12 Unilateral primary osteoarthritis, left hip (principal); R53.1 Weakness
CPT/HCPCS: 99203

== ENCOUNTER 2023-06-28 13:22 | Observation (INO) | payer OTHER, MEDICARE ==
[~2023-06-28] VITALS: Ht 182.8 cm; Wt 118.3 kg
[~2023-06-28 13:22] MED LIST changes: -CHOL200025 PO; -DILT180C85 PO; -GABA300C PO; -LIRA0.6P3 SQ; -SULF-11 PO; -UBID100C44 PO
--- NOTE | 2023-06-28 13:56 | ED Fall/Injury ---
General Chief Complaint: Trauma-Non Activation Stated Complaint: FALL | BACK INJ Nursing Triage Note: PT TO RM 6 BY WC WITH WITH C/O FALLING BACKWARDS IN HIS GARAGE AROUND 1220 THIS AFTERNOON. PT FELL AGAINST CABINETS AFTER LOSING BALANCE Source: patient Exam Limitations: no limitations History of Present Illness Date Seen by Provider: Jun 28, 2023 Time Seen by Provider: 13:45 Initial Comments Mr. Alas is a 67-year-old gentleman who presents to the emergency room via private vehicle after having a fall backward in his home. He has been struggling with recovery from spinal surgery earlier this year. Today he was at physical therapy. When he returned home he lost his balance and fell backward, striking his head and back on a cabinet. He has some skin tears on his left arm and some markings on his back according to 's history. He was able to get up on his feet with much assistance from law enforcement. His was eventual ly able to assist him into the car to come to the emergency room. Dwight reports that his left leg has significantly atrophied. He does not bear weight on it much due to pain. This has caused weakness and it often seems to give out on him. He has been to [facility] (spine surgery) for follow-up appointments and has had a referral to Dr. Lee (orthopedics). They have not found a definitive correctable cause for these issues. His Michelle reports that she is no longer able to safely and adequately assist him at home. They are looking for another solution. Patient is alert and oriented and in no distress. Allergies and Home Medications Allergies Coded Allergies: amiodarone (Verified Allergy, Severe, Anaphylaxis, 10/08/21) SYSTEMIC oxycodone (Verified Adverse Reaction, Mild, LETHARGIC, 05/27/23) Patient Home Medication List Home Medication List Reviewed: Yes Acetaminophen (Tylenol Extra Strength) 500 Mg Tablet, 1,000 MG PO BID, (Reported) Entered as Reported by: SHERYL PIÑA on 03/22/19 1353 Last Action: Reviewed Allopurinol (Allopurinol) 100 Mg Tablet, 100 MG PO BID, (Reported) Entered as Reported by: SHERYL PIÑA on 03/22/19 1346 Last Action: Reviewed Aspirin (Aspirin EC) 81 Mg Tablet., 81 MG PO DAILY, (Reported) Entered as Reported by: GIL CHRISTINE on 02/12/22 1026 Last Action: Reviewed Atorvastatin Calcium (Atorvastatin Calcium) 80 Mg Tablet, 40 MG PO HS, (Reported) Entered as Reported by: GIL CHRISTINE on 02/12/22 1026 Last Action: Reviewed Brexpiprazole (Rexulti) 1 Mg Tablet, 1 MG PO DAILY, (Reported) Entered as Reported by: INES DENTON on 10/08/21 1341 Last Action: Converted Cholecalciferol (Vitamin D3) (Vitamin D3) 50 Mcg (2000 Unit) Tablet, 50 MCG PO DAILY, (Reported) Entered as Reported by: GIL CHRISTINE on 06/29/23 1041 Last Action: Converted Desvenlafaxine Succinate (Desvenlafaxine Succinate ER) 50 Mg Tab.er.24h, 50 MG PO HS, (Reported) Entered as Reported by: GIL CHRISTINE on 02/12/22 1026 Last Action: Converted Dexlansoprazole (Dexilant) 60 Mg Cap.drAstridbp, 60 MG PO BID, (Reported) Entered as Reported by: SHERYL PIÑA on 03/22/19 1354 Last Action: Reviewed Diltiazem HCl (Diltiazem 24Hr ER) 180 Mg Cap.er.24h, 180 MG PO DAILY, (Reported) Entered as Reported by: GIL CHRISTNIE on 06/29/23 1041 Last Action: Reviewed Docusate Sodium (Docusate Sodium) 100 Mg Capsule, 100 MG PO HS, (Reported) Entered as Reported by: VALDEMAR MARCANO on 05/12/22 0738 Last Action: Reviewed Doxazosin Mesylate (Cardura Xl) 8 Mg Tab.er.24, 8 MG PO BID, (Reported) Entered as Reported by: GIL CHRISTINE on 06/29/23 1041 Last Action: Reviewed Furosemide (Furosemide) 40 Mg Tablet, 40 MG PO DAILY, (Reported) Entered as Reported by: SHERYL PIÑA on 03/22/19 1346 Last Action: Reviewed Hydrocodone/Acetaminophen (Hydrocodone-Acetamin 5-325 mg) 5 Mg-325 Mg Tablet, 1 EA PO BID, (Reported) Entered as Reported by: MIRIAN SILVA on 06/28/23 1810 Last Action: Reviewed Isosorbide Mononitrate (Isosorbide Mononitrate ER) 30 Mg Tab.er.24h, 30 MG PO DAILY, (Reported) Entered as Reported by: GIL CHRISTINE on 06/29/23 1047 Last Action: Continued Liraglutide (Victoza 3-Klever) 0.6 Mg/0.1 Ml (18 Mg/3 Ml) Pen.injctr, 1.2 MG SQ DAILY, (Reported) Entered as Reported by: GIL CHRISTINE on 06/29/23 104 Last Action: Held Lisinopril (Lisinopril) 40 Mg Tablet, 40 MG PO HS, (Reported) Entered as Reported by: GIL CHRISTINE on 02/12/22 1026 Last Action: Reviewed Magnesium Oxide (Magnesium Oxide) 400 Mg Tablet, 400 MG PO DAILY, (Reported) Entered as Reported by: VALDEMAR MARCANO on 05/12/22 0738 Last Action: Converted Metolazone (Metolazone) 5 Mg Tablet, 5 MG PO DAILY, (Reported) Entered as Reported by: GIL CHRISTINE on 06/29/23 104 Last Action: Converted Metoprolol Tartrate (Metoprolol Tartrate) 100 Mg Tablet, 100 MG PO BID, (Reported) Entered as Reported by: SHERYL PIÑA on 03/22/19 1346 Last Action: Reviewed Potassium Chloride (Potassium Chloride) 20 Meq Tablet.er, 20 MEQ PO BID, (Reported) Entered as Reported by: GIL CHRISTINE on 06/29/23 1047 Last Action: Reviewed Prednisone (Prednisone) 20 Mg Tab, 40 MG PO DAILY@0700 Prescribed by: MIRIAN SILVA on 07/01/23 1152 Pregabalin (Lyrica) 75 Mg Capsule, 75 MG PO BID Prescribed by: MIRIAN SILVA on 07/01/23 1153 Sulfamethoxazole/Trimethoprim (Sulfamethoxazole-Tmp Ss Tablet) 400 Mg-80 Mg Tablet, 0.5 EA PO HS, (Reported) Entered as Reported by: GIL CHRISTINE on 06/29/23 104 Last Action: Converted Tramadol HCl (Tramadol HCl) 50 Mg Tablet, 50 MG PO DAILY, (Reported) Entered as Reported by: SHERYL PIÑA on 03/22/19 1354 Last Action: Reviewed Tramadol HCl (Tramadol HCl) 50 Mg Tablet, 100 MG PO HS, (Reported) Entered as Reported by: MAYI PABLO on 10/16/20 0916 Last Action: Reviewed Trazodone HCl (Trazodone HCl) 50 Mg Tablet, 50 MG PO HS, (Reported) Entered as Reported by: ALEKSANDER GODDARD on 06/28/19 1054 Last Action: Reviewed Ubidecarenone (Co Q-10) 100 Mg Capsule, 100 MG PO DAILY, (Reported) Entered as Reported by: GIL CHRISTINE on 06/29/23 1041 Last Action: Converted Discontinued Medications Cholecalciferol (Vitamin D3) (Vitamin D3) 25 Mcg (1000 Unit) Tablet, 50 MCG PO DAILY, (Reported) Discontinued Reason: Prescription changed Entered as Reported by: GIL CHRISTINE on 02/12/22 1026 Gabapentin (Neurontin) 300 Mg Capsule, 300 MG PO HS, (Reported) Entered as Reported by: GIL CHRISTINE on 06/29/23 1041 Last Action: Held Sulfamethoxazole/Trimethoprim (Bactrim 400-80 mg Tablet) 400 Mg-80 Mg Tablet, 0.5 TAB PO HS, (Reported) Entered as Reported by: VALDEMAR MARCANO on 05/12/22 0738 Last Action: Discontinued Ubidecarenone (Co Q10) 200 Mg Capsule, 100 MG PO DAILY, (Reported) Discontinued Reason: Prescription changed Entered as Reported by: SHERYL PIÑA on 03/22/19 1354 Review of Systems Review of Systems Constitutional: no symptoms reported Eyes: No Symptoms Reported Ears, Nose, Mouth, Throat: no symptoms reported Respiratory: no symptoms reported Cardiovascular: no symptoms reported Gastrointestinal: no symptoms reported Genitourinary: no symptoms reported Musculoskeletal: see HPI Skin: see HPI Psychiatric/Neurological: No Symptoms Reported Past Ooiagob-Bggmkt-Jiiygu Hx Patient Social History Tobacco Use?: No Substance use?: No Alcohol Use?: No Pt feels they are or have been: No Immunizations Up To Date Tetanus Booster (TDap): Unknown PED Vaccines UTD: Yes Influenza Vaccine Up-to-Date: Yes; Up-to-Date First/Initial COVID19 Vaccinat: 09/06/20 Second COVID19 Vaccination Mason: 10/04/20 Third COVID19 Vaccination Date: APRIL 2021 Seasonal Allergies Seasonal Allergies: Yes Past Medical History Surgery/Hospitalization HX: DIABETIC NO INSULIN, NEUROPATHY, HTN, QUADRUPLE BYPASS, GOUT, DEPRESSION, BARRETS ESOPHAGUS, ALCOHOLISM RECOVERY BACK SURGERY Surgeries: Yes (CTR SARAHI,ANT COMPARTMENT SYNDROM R LEG, BILAT knee scope,LOOP RECORDER) Abdominal, CABG, Gallbladder, Orthopedic, Tonsillectomy Respiratory: Yes (SLEEP APNEA-USES CPAP, DYSPNEA) Pneumonia, Sleep Apnea Currently Using CPAP: Yes Currently Using BIPAP: No Cardiac: Yes (2 STENTS-CABG x 4, HAS LOOP RECORDER, EDEMA) Atrial Fibrillation, Chronic Edema/Swelling, Coronary Artery Disease, High Cholesterol, Hypertension Neurological: No ( 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) Seizure Disorder Reproductive Disorders: No Sexually Transmitted Disease: No HIV/AIDS: No Genitourinary: Yes (renal issues after CABG, ERECTYLE DYSFUNCTION) Benign Prostatic Hyperpl Gastrointestinal: Yes (UMB HERNIA REPAIR) Gastroesophageal Reflux, Hiatal Hernia Musculoskeletal: Yes (RIB FX) Degenerate Disk Disease, Arthritis, Chronic Back Pain, Fractures, Gout Endocrine: Yes Diabetes, Non-Insulin dep HEENT: No (cataracts removed) Loss of Vision: Denies Hearing Impairment: Denies Cancer: No Psychosocial: Yes Sleep Difficulties, Anxiety, Depression Integumentary: Yes (hx CELLULITIS LEFT LOWER EXTREMITY) Blood Disorders: No Adverse Reaction/Blood Tranf: Yes (fever-lab stated he had an adverse reaction ) Family Medical History Cardiovascular disease 19 FATHER 19 MOTHER Diabetes mellitus 19 FATHER 19 MOTHER G8 BROTHER Hypertension 19 FATHER Physical Exam Vital Signs Vital Signs - First Documented 06/28/23 13:28 Temp 36.9 Pulse 73 Resp 16 B/P (MAP) 141/69 (93) Pulse Ox 96 O2 Delivery Room Air Capillary Refill : Height, Weight, BMI Height: 6'0.00" Weight: 247lbs. 0.0oz. 112.213909pb; 35.00 BMI Method:Stated General Appearance: WD/WN, no apparent distress, obese HEENT: PERRL/EOMI, normal ENT inspection Neck: normal inspection, tender midline (Mild) Cardiovascular: regular rate, rhythm, no murmur Respiratory: chest non-tender, lungs clear, normal breath sounds, no respiratory distress Gastrointestinal: normal bowel sounds, non tender, soft Back: normal inspection Extremities: normal inspection, no pedal edema Neurologic/Psychiatric: skilled nursing case manager II-XII nml as tested, alert, normal mood/affect, oriented x 3, other (Moves all 4 extremities) Skin: normal color, warm/dry Progress/Results/Core Measures Results/Orders Lab Results Laboratory Tests Test 06/28/23 13:34 Range/Units Sodium Level 133 L 135-145 MMOL/L Potassium Level 4.1 3.6-5.0 MMOL/L Chloride Level 101 98-107 MMOL/L Carbon Dioxide Level 23 21-32 MMOL/L Anion Gap 9 5-14 MMOL/L Blood Urea Nitrogen 18 7-18 MG/DL Creatinine 1.22 0.60-1.30 MG/DL Estimat Glomerular Filtration Rate 64 BUN/Creatinine Ratio 15 Glucose Level 99 70-105 MG/DL Calcium Level 9.2 8.5-10.1 MG/DL My Orders Orders - BLANCA HOPPER MD Basic Metabolic Panel (06/28/23 13:54) Ct Head/Cervical Spine Wo (06/28/23 13:54) Ct Thoracic/Lumbar Spine Wo (06/28/23 13:54) Ct Chest/Abdomen/Pelvis W (06/28/23 13:54) Iohexol Injection (Omnipaque 350 Mg/Ml 1 (06/28/23 14:15) Di Iv Start (Assessment) .IV start (06/28/23 14:14) Ns (Ivpb) 100 Ml (Sodium Chloride 0.9% 1 (06/28/23 14:15) Ed Admission (Communication) (06/28/23 17:04) Medications Given in ED Vital Signs/I&O 06/28/23 13:28 Temp 36.9 Pulse 73 Resp 16 B/P (MAP) 141/69 (93) Pulse Ox 96 O2 Delivery Room Air Blood Pressure Mean: 93 Progress Progress Note : Progress Note Patient was interviewed and examined. His was interviewed as well. CT imaging to evaluate injuries was obtained as noted in the radiologist's report below. No acute injuries were identified. Patient remained neurologically intact. BMP was obtained and was unremarkable. No beds were available in the acute rehab unit at the time of this encounter. However, admission for observation was arranged with Dr. Silva with hope that some type of rehab admission could be pursued after the acute admission. Case was discussed with Dr. Silva, hospitalist on-call for [facility]. Diagnostic Imaging Diagonstic Imaging: CT Plain Films/CT/US/NM/MRI: chest, abdomen, pelvis Comments NAME: [facility] REC#: [id number] PT STATUS: REG ER : 1955 PHYSICIAN: BLANCA HOPPER MD ADMIT DATE: 06/28/23/ER Signed Date of Exam:06/28/23 CT CHEST/ABDOMEN/PELVIS W PROCEDURE: CT chest, abdomen, and pelvis with contrast. TECHNIQUE: Multiple contiguous axial images were obtained through the chest, abdomen, and pelvis after the administration of intravenous contrast. Auto Exposure Controls were utilized during the CT exam to meet ALARA standards for radiation dose reduction. INDICATION: Trauma. COMPARISON: CT thoracic and lumbar spine performed concurrently. FINDINGS: Neck: The carotid and vertebral arteries are patent throughout the neck without evidence of dissection or mural thrombus. No acute fracture or traumatic malalignment in the cervical spine. The airway is widely patent. No cervical lymphadenopathy. Chest: Normal thyroid. No subclavicular axillary lymphadenopathy. No evidence of mediastinal hemorrhage. No mediastinal or hilar lymphadenopathy. Normal heart size without pericardial effusion. Normal caliber thoracic aorta without evidence of acute traumatic injury. No pleural effusion or pneumothorax. No pulmonary consolidations to indicate laceration or contusion. Moderate-sized paraesophageal hiatal hernia. Prior sternotomy. Healed fracture in the anterior left 6th rib anterior to lateral aspect of the right 7th and 8th ribs. Visualized aspects of the clavicles are intact. No fracture within the visualized portions of the scapula. Abdomen and pelvis: No free intraperitoneal air or fluid. The liver and spleen enhance normally without evidence of subcapsular hematoma or laceration. The adrenals and pancreas are normal. The kidneys enhance symmetrically without evidence of traumatic injury. Delayed phase imaging demonstrates opacification of normal caliber ureters and the urinary bladder without evidence of ureteral injury or bladder rupture. No dilated loops of bowel. Normal caliber abdominal aorta without evidence of retroperitoneal hemorrhage. No abdominal or pelvic lymphadenopathy. No acute fracture of the pelvis or proximal femurs. IMPRESSION: 1. No acute traumatic injury in the chest, abdomen or pelvis. 2. Old healed bilateral rib fractures. Dictated by: Dictated on workstation # [id number] Dict: 06/28/23 1445 Trans: 06/28/23 1453 [facility] [id number] Interpreted by: MIN PALMA MD Electronically signed by: MIN PALMA MD 06/28/23 1459 Diagonstic Imaging: CT Plain Films/CT/US/NM/MRI: c-spine, head Comments NAME: DWIGHT ALAS [facility] REC#: [id number] PT STATUS: REG ER : 1955 PHYSICIAN: BLANCA HOPPER MD ADMIT DATE: 06/28/23/ER Signed Date of Exam:06/28/23 CT HEAD/CERVICAL SPINE WO PROCEDURE: CT head and CT cervical spine without contrast. TECHNIQUE: Multiple contiguous axial images were obtained through the brain and cervical spine without the use of intravenous contrast. Sagittal and coronal reformations through the cervical spine were then performed. Auto Exposure Controls were utilized during the CT exam to meet ALARA standards for radiation dose reduction. INDICATION: Fall. Head and neck pain. COMPARISON: 01/03/2018. FINDINGS: CT head: No large acute territorial ischemia, mass, or hemorrhage. No midline shift or mass effect. Scattered areas of age-indeterminate ischemia are seen in the left basal ganglia and left frontal lobe near the vertex. The ventricles, cortical sulci, and basilar cisterns are patent and unremarkable. The calvarium is intact. The visualized paranasal sinuses are clear. CT cervical spine: No acute fracture or dislocation is seen in the cervical spine. No focal osseous lesions. Vertebral body heights are well-maintained. The craniocervical junction is well-maintained. Mild degenerative changes are seen in the cervical spine with disc osteophyte complexes and uncovertebral arthropathy. Soft tissues of the neck are unremarkable. IMPRESSION: 1. No hemorrhage or focal intra-axial mass. No CT evidence of large acute territorial ischemia. 2. No acute fracture or dislocation in the cervical spine. 3. Scattered areas of age-indeterminate ischemia in the left basal ganglia and left frontal lobe near the vertex. Recommend correlation with patient history and symptoms and if indicated MRI brain to further evaluate Dictated by: Dictated on workstation # [id number] Dict: 06/28/231442 Trans: 06/28/[address] [facility] [id number] Interpreted by: ASHLEY SILVA DO Electronically signed by: ASHLEY SILVA DO 06/28/23 1449 Diagonstic Imaging: CT Plain Films/CT/US/NM/MRI: other (Thoracic and lumbar spine) Comments NAME: DWIGHT ALAS [facility] REC#: [id number] PT STATUS: REG ER : 1955 PHYSICIAN: BLANCA HOPPER MD ADMIT DATE: 06/28/23/ER Signed Date of Exam:06/28/23 CT THORACIC/LUMBAR SPINE WO PROCEDURE: CT thoracic and lumbar spine without contrast. TECHNIQUE: Multiple contiguous axial images were obtained through the thoracic and lumbar spine without the use of intravenous contrast. Sagittal and coronal reformations were then performed. All CT scans use one or more of the following dose optimizing techniques: automated exposure control, MA and/or KvP adjustment based on a patient size and exam type, or iterative reconstruction. INDICATION: Trauma. Back pain. Fall against cabinets. COMPARISON: CT chest, abdomen, and pelvis with IV contrast of 06/28/2023. FINDINGS: Bilateral richmond and pedicle screw fixation with interbody fusion and laminectomy at L4-L5 where there is also grade 1 anterolisthesis. Hardware components appear intact. Evaluation at the L4 level is somewhat limited by motion and streak artifact. Alignment is otherwise normal. Vertebral body heights are preserved. No fractures are identified. Mild diffuse degenerative endplate changes. No CT evidence of high-grade spinal canal stenosis. The visualized pelvis is intact. Moderate esophageal hiatal hernia is partially visualized. No acute findings in the visualized paravertebral soft tissues. IMPRESSION: 1. No acute CT findings in the thoracic or lumbar spine. 2. Bilateral richmond and pedicle screw fixation with laminectomy and interbody fusion at L4-L5. Dictated by: Dictated on workstation # [id number] Dict: 06/28/23 1446 Trans: 06/28/23 1647 [id number] Interpreted by: PHILIP SEO MD Electronically signed by: PHILIP SEO MD 06/28/237 Departure Communication (Admissions) Time/Spoke to Admitting Phy: 16:31 Dr. Silva Impression Primary Impression: Fall on same level Qualified Codes: W18.30XA - Fall on same level, unspecified, initial encounter Additional Impressions: Frequent falls Post-operative pain Lower extremity weakness Qualified Codes: R29.898 - Other symptoms and signs involving the mu sculoskeletal system Disposition: ADMITTED INPATIENT Condition: Stable Admissions Decision to Admit Reason: Admit from ER (General) Decision to Admit/Date: Jun 28, 2023 Time/Decision to Admit Time: 16:31 Departure-Patient Inst. Referrals: JEROME GEORGE MD (PCP/Family) Primary Care Physician Scripts Prednisone (Prednisone) 20 Mg Tab 40 MG PO DAILY@0700, #6 TAB 0 Refills Prov: MIRIAN SILVA MD 07/01/23 Pregabalin (Lyrica) 75 Mg Capsule 75 MG PO BID, #56 CAP 0 Refills Prov: MIRIAN SILVA MD 07/01/23 Copy Copies To 1: JEROME GEORGE MD, JOSHUA T MD Jun 28, 2023 13:56
[2023-06-28 14:07] LABS: POTASSIUM 4.1 MMOL/L (3.6-5.0)
[2023-06-28 14:08] LABS: CALCIUM 9.2 MG/DL (8.5-10.1)
[2023-06-28 14:12] LABS: CREATININE SERUM 1.22 MG/DL (0.60-1.30)
[2023-06-28] MEDS ORDERED: NS 100 ML (IVPB) BAG IV ONE (14:15)
[2023-06-28] MEDS ORDERED: IOHEXOL 350 MG/ML 100 ML (OMNIPAQUE 350) VIAL IV ONE (14:15)
--- NOTE | 2023-06-28 14:49 | Diagnostic Imaging Report ---
PROCEDURE: CT head and CT cervical spine without contrast. TECHNIQUE: Multiple contiguous axial images were obtained through the brain and cervical spine without the use of intravenous contrast. Sagittal and coronal reformations through the cervical spine were then performed. Auto Exposure Controls were utilized during the CT exam to meet ALARA standards for radiation dose reduction. INDICATION: Fall. Head and neck pain. COMPARISON: 01/03/2018. FINDINGS: CT head: No large acute territorial ischemia, mass, or hemorrhage. No midline shift or mass effect. Scattered areas of age-indeterminate ischemia are seen in the left basal ganglia and left frontal lobe near the vertex. The ventricles, cortical sulci, and basilar cisterns are patent and unremarkable. The calvarium is intact. The visualized paranasal sinuses are clear. CT cervical spine: No acute fracture or dislocation is seen in the cervical spine. No focal osseous lesions. Vertebral body heights are well-maintained. The craniocervical junction is well-maintained. Mild degenerative changes are seen in the cervical spine with disc osteophyte complexes and uncovertebral arthropathy. Soft tissues of the neck are unremarkable. IMPRESSION: 1. No hemorrhage or focal intra-axial mass. No CT evidence of large acute territorial ischemia. 2. No acute fracture or dislocation in the cervical spine. 3. Scattered areas of age-indeterminate ischemia in the left basal ganglia and left frontal lobe near the vertex. Recommend correlation with patient history and symptoms and if indicated MRI brain to further evaluate Dictated by: Dictated on workstation # [id number]
--- NOTE | 2023-06-28 14:55 | Diagnostic Imaging Report ---
PROCEDURE: CT chest, abdomen, and pelvis with contrast. TECHNIQUE: Multiple contiguous axial images were obtained through the chest, abdomen, and pelvis after the administration of intravenous contrast. Auto Exposure Controls were utilized during the CT exam to meet ALARA standards for radiation dose reduction. INDICATION: Trauma. COMPARISON: CT thoracic and lumbar spine performed concurrently. FINDINGS: Neck: The carotid and vertebral arteries are patent throughout the neck without evidence of dissection or mural thrombus. No acute fracture or traumatic malalignment in the cervical spine. The airway is widely patent. No cervical lymphadenopathy. Chest: Normal thyroid. No subclavicular axillary lymphadenopathy. No evidence of mediastinal hemorrhage. No mediastinal or hilar lymphadenopathy. Normal heart size without pericardial effusion. Normal caliber thoracic aorta without evidence of acute traumatic injury. No pleural effusion or pneumothorax. No pulmonary consolidations to indicate laceration or contusion. Moderate-sized paraesophageal hiatal hernia. Prior sternotomy. Healed fracture in the anterior left 6th rib anterior to lateral aspect of the right 7th and 8th ribs. Visualized aspects of the clavicles are intact. No fracture within the visualized portions of the scapula. Abdomen and pelvis: No free intraperitoneal air or fluid. The liver and spleen enhance normally without evidence of subcapsular hematoma or laceration. The adrenals and pancreas are normal. The kidneys enhance symmetrically without evidence of traumatic injury. Delayed phase imaging demonstrates opacification of normal caliber ureters and the urinary bladder without evidence of ureteral injury or bladder rupture. No dilated loops of bowel. Normal caliber abdominal aorta without evidence of retroperitoneal hemorrhage. No abdominal or pelvic lymphadenopathy. No acute fracture of the pelvis or proximal femurs. IMPRESSION: 1. No acute traumatic injury in the chest, abdomen or pelvis. 2. Old healed bilateral rib fractures. Dictated by: Dictated on workstation # [id number]
--- NOTE | 2023-06-28 15:01 | Diagnostic Imaging Report ---
PROCEDURE: CT thoracic and lumbar spine without contrast. TECHNIQUE: Multiple contiguous axial images were obtained through the thoracic and lumbar spine without the use of intravenous contrast. Sagittal and coronal reformations were then performed. All CT scans use one or more of the following dose optimizing techniques: automated exposure control, MA and/or KvP adjustment based on a patient size and exam type, or iterative reconstruction. INDICATION: Trauma. Back pain. Fall against cabinets. COMPARISON: CT chest, abdomen, and pelvis with IV contrast of 06/28/2023. FINDINGS: Bilateral richmond and pedicle screw fixation with interbody fusion and laminectomy at L4-L5 where there is also grade 1 anterolisthesis. Hardware components appear intact. Evaluation at the L4 level is somewhat limited by motion and streak artifact. Alignment is otherwise normal. Vertebral body heights are preserved. No fractures are identified. Mild diffuse degenerative endplate changes. No CT evidence of high-grade spinal canal stenosis. The visualized pelvis is intact. Moderate esophageal hiatal hernia is partially visualized. No acute findings in the visualized paravertebral soft tissues. IMPRESSION: 1. No acute CT findings in the thoracic or lumbar spine. 2. Bilateral richmond and pedicle screw fixation with laminectomy and interbody fusion at L4-L5. Dictated by: Dictated on workstation # [id number]
[2023-06-28] MEDS ORDERED: PATIENT MAY USE OWN MEDS, ALL PO SCH (17:45)
[2023-06-28] MEDS ORDERED: ONDANSETRON 4 MG ORAL DISSOLVE TABLET PO PRN (17:45)
[2023-06-28 17:54] VITALS: BP 137/71
[2023-06-28] MEDS ORDERED: ACHD5005 PO (18:10)
[2023-06-28] MEDS: ENOXAPARIN 40 MG/0.4 ML SYRINGE SC SCH (18:34)
[2023-06-28] MEDS: POTASSIUM CHLORIDE 20 MEQ TABLET PO SCH (18:34)
[2023-06-28] MEDS: HYDROcodone/ACETAMINOPHEN 5 MG/325 MG TABLET PO PRN (18:37)
[2023-06-28 19:16] VITALS: BP 126/61
[2023-06-28] MEDS: inSUlin ASPART 1 UNIT/0.01 ML (PER UNIT) SC SCH (20:37)
[2023-06-28] MEDS: DOCUSATE SODIUM 100 MG CAPSULE PO SCH (20:58)
[2023-06-28] MEDS: meTOprolol TARTRATE (IR) 50 MG TABLET PO SCH (20:59)
[2023-06-28] MEDS ORDERED: NON-FORMULARY MEDICATION 1 EA EA (Potassium Chloride 20 MEQ) PO SCH (21:00)
[2023-06-28] MEDS ORDERED: NON-FORMULARY MEDICATION 1 EA EA (Dexlansoprazole (Dexilant) 60 MG) PO SCH (21:00)
[2023-06-28] MEDS: traZODone 50 MG (DESYREL) TAB PO SCH (21:00)
[2023-06-28] MEDS: PANTOPRAZOLE 40 MG TABLET PO SCH (21:00)
[2023-06-28] MEDS ORDERED: NON-FORMULARY MEDICATION 1 EA EA (Metoprolol Tartrate 100 MG) PO SCH (21:00)
[2023-06-28] MEDS ORDERED: DOXAZOSIN MESYLATE 8 MG PO SCH (21:00)
[2023-06-28] MEDS: ALLOPURINOL 100 MG TABLET PO SCH (21:01)
[2023-06-28] MEDS: ACETAMINOPHEN 500 MG TABLET PO SCH (21:36)
[2023-06-28 23:06] VITALS: BP 124/70
[2023-06-29 03:26] VITALS: BP 138/74
[2023-06-29] MEDS: inSUlin ASPART 1 UNIT/0.01 ML (PER UNIT) SC SCH ×4 (05:58→21:09)
[2023-06-29] MEDS: ACETAMINOPHEN 500 MG TABLET PO SCH ×3 (06:12→21:08)
[2023-06-29 07:23] VITALS: BP 127/58
[2023-06-29 08:57] LABS: POTASSIUM 4.5 MMOL/L (3.6-5.0)
[2023-06-29 08:58] LABS: CALCIUM 9.6 MG/DL (8.5-10.1)
[2023-06-29] MEDS ORDERED: DILTIAZEM HCL 180 MG PO SCH (09:00)
[2023-06-29 09:03] LABS: CREATININE SERUM 1.16 MG/DL (0.60-1.30)
[2023-06-29] MEDS: POTASSIUM CHLORIDE 20 MEQ TABLET PO SCH ×2 (09:04→17:25)
[2023-06-29] MEDS: FUROSEMIDE 40 MG TABLET PO SCH (09:04)
[2023-06-29] MEDS: PANTOPRAZOLE 40 MG TABLET PO SCH ×2 (09:04→21:07)
[2023-06-29] MEDS: meTOprolol TARTRATE (IR) 50 MG TABLET PO SCH ×2 (09:05→21:08)
[2023-06-29] MEDS: dilTIAZem ER 180 MG CAPSULE PO SCH (09:05)
[2023-06-29] MEDS: ASPIRIN enteric coated 81MG TABLET PO SCH (09:05)
[2023-06-29] MEDS: ALLOPURINOL 100 MG TABLET PO SCH ×2 (09:05→21:08)
[2023-06-29] MEDS: HYDROcodone/ACETAMINOPHEN 5 MG/325 MG TABLET PO PRN (09:06)
--- NOTE | 2023-06-29 09:58 | Occupational Therapy Eval ---
OT Evaluation-General/PLF Medical Diagnosis Admission Date Jun 28, 2023 at 17:23 Medical Diagnosis: frequent falls, weakness Onset Date: Jun 28, 2023 Therapy Diagnosis Therapy Diagnosis: weakness Height/Weight Height (Feet): 6 Height (Inches): 0.00 Weight (Pounds): 247 Weight (Ounces): 0.0 Precautions Precautions/Isolations: Fall Prevention, Standard Precautions Medical History Pertinent Medical History: Atrial Fib, Alcoholism, CABG, CAD, CVA, DM, GERD, HTN Additional Medical History Mr. Alas is a 67-year-old gentleman who presents to the emergency room via private vehicle after having a fall backward in his home. He has been struggling with recovery from spinal surgery earlier this year. Yesterday he was at physical therapy. When he returned home he lost his balance and fell backward, striking his head and back on a cabinet. He has some skin tears on his left arm and some markings on his back according to 's history. He was able to get up on his feet with much assistance from law enforcement. His was eventually able to assist him into the car to come to the emergency room. Al reports that his left leg has significantly atrophied. He does not bear weight on it much due to pain. This has caused weakness and it often seems to give out on him. He has been to [facility] (spine surgery) for follow-up appointments and has had a referral to Dr. Lee (orthopedics). They have not found a definitive correctable cause for these issues. His Michelle reports that she is no longer able to safely and adequately assist him at home. They are looking for another solution. Patient is alert and oriented and in no distress. Reviewed History: Yes Social History Home: Multilevel Current Living Status: Spouse Entry Into Home: Stairs With Railing Steps Into Home: 4 Steps Inside Home: 13 (Patient reports he does not go upstairs) ADL-Prior Level of Function SCALE: Activities may be completed with or without assistive devices. 5-Yexjxnidnx-gqshhed completes the activity by him/herself with no assistance from a helper. 5-Set-up or Clean-up Assistance-helper sets up or cleans up; patient completes activity. [place] assists only prior to or following the activity. 4-Supervision or Touching Assistance-helper provides verbal cues and/or touching/steadying and/or contact guard assistance as patient completes activity. Assistance may be provided throughout the activity or intermittently. 3-Partial/Moderate Assistance-helper does LESS THAN HALF the effort. Tyler lifts, holds or supports trunk or limbs, but provides less than half the effort. 2-Substantial/Maximal Assistance-helper does MORE THAN HALF the effort. Tyler lifts or holds trunk or limbs and provides more than half the effort. 6-Isyugbikf-cdpkwu does ALL the effort. Patient does none of the effort to complete the activity. Or, the assistance of 2 or more helpers is required for the patient to complete the activity. If activity was not attempted, code reason: 7-Patient Refused. 9-Not Applicable-not attempted and the patient did not perform the activity bef ore the current illness, exacerbation or injury. 10-Not Attempted due to Environmental Limitations-(lack of equipment, weather r estraints, etc.). 88-Not Attempted due to Medical Conditions or Safety Concerns. Self Care: Needed Some Help (last few weeks) Functional Cognition: Independent DME/Equipment: Bath Chair, Grab Bars DME/Equipment Comments FWW increased falls, LOB multidirectional Drive Self: Yes OT Current Status Subjective Agreeable to therapy, Pain Numeric Pain Scale: 6 Location Body Site: Generalized Mental Status/Objective Patient Orientation: Person, Place, Time, Situation Current Glasses/Contacts: Yes Hand Dominance: Right Upper Extremity ROM BUE ROM WFLS, reduced forward flexion d/t larger girth Upper Extremity Coordination FMC/GMC BUE WFLs Upper Extremity Sensation LE decreased sensation, BUE WFLS Upper Extremity Strength -4/5 grossly ADL-Treatment ADL-Current Reports he doesn't think he can put socks/shoes on, however sitting EOB required no assistance Eating (QC): 6 Oral Hygiene (QC): 5 Shower/Bathe Self (QC): 7 Upper Body Dressing (QC): 5 (garments handed to patient) Lower Body Dressing (QC): 5 (garments handed to patient, donned EOB, lifting alternating LES upward. Patient reports he does not want to lean forward and jacky n for fear of falling) On/Off Footwear (QC): 5 Toileting Hygiene (QC): 5 Patient transferred from bed ot recliner w/ SBA and use of FWW and safety cues for transfer sequences, on one occassion of sit/stand patient required repeat instruction to reach back w/ his hands Other Treatments See PT notes for standing balance and ambulation Education OT Patient Education: Correct positioning, Exercise program, Modified ADL techniques, Progress toward Goal/Update tx plan, Purpose of tx/functional activities, Reviewed precautions, Rehab process, Safety issues, Transfer techniques, Use of adapted equipment Teaching Recipient: Patient Teaching Methods: Demonstration, Discussion Response to Teaching: Verbalize Understanding, Reinforcement Needed OT Penitentiary Goals Penitentiary Goals 1=Demonstrate adherence to instructed precautions during ADL tasks. 2=Patient will verbalize/demonstrate understanding of assistive devices/modifications for ADL. 3=Patient will improve strength/tolerance for activity to enable patient to perform ADL's. OT Education/Plan Problem List/Assessment Assessment: Decreased Activ Tolerance, Impaired Funct Balance, Impaired Self- Care Skills Discharge Recommendations Plan/Recommendations: Continue POC Treatment Plan/Plan of Care Treatment,Training & Education: Yes Patient would benefit from OT for education, treatment and training to promote independence in ADL's, mobility, safety and/or upper extremity function for ADL's. Plan of Care: ADL Retraining, Functional Mobility, Group Exercise/Act as Ind, UE Funct Exercise/Act Treatment Duration: Jul 02, 2023 Frequency: 3 times per week (3-5 times per week) Estimated Hrs Per Day: .25 hour per day Rehab Potential: Guarded Patient has been receiving Outpatient services Time Start Time: 08:20 Stop Time: 08:35 DATE: Jun 29, 2023 Total Time Billed (hr/min): 15 Billed Treatment Time EVM 15 min DORON BRICE OT Jun 29, 2023 09:58
--- NOTE | 2023-06-29 10:18 | Physical Therapy Evaluation ---
PT Evaluation-General Medical Diagnosis Admission Date Jun 28, 2023 at 17:23 Medical Diagnosis: frequent falls, weakness Onset Date: Jun 28, 2023 Therapy Diagnosis Therapy Diagnosis: generalized weakness/impaired mobility Height/Weight Height (Feet): 6 Height (Inches): 0.00 Weight (Pounds): 247 Weight (Ounces): 0.0 Precautions Precautions/Isolations: Fall Prevention, Standard Precautions Referral Physician: González Medical History Pertinent Medical History: Atrial Fib, Alcoholism, CABG, CAD, CVA, DM, GERD, HTN Additional Medical History spinal surgery 02/2023 with multiple falls since Current History ER secondary to fell backward due to LOB Reviewed History: Yes Social History Home: Multilevel Current Living Status: Spouse Entry Into Home: Stairs With Railing PT Steps Into Home: 4 PT Steps Inside Home: 13 (Patient reports he does not go upstairs) Prior Prior Level of Function SCALE: Activities may be completed with or without assistive devices. 2-Aqmjjfbfjc-xknwnyr completes the activity by him/herself with no assistance from a helper. 5-Set-up or Clean-up Assistance-helper sets up or cleans up; patient completes activity. [place] assists only prior to or following the activity. 4-Supervision or Touching Assistance-helper provides verbal cues and/or touching/steadying and/or contact guard assistance as patient completes activity. Assistance may be provided throughout the activity or intermittently. 3-Partial/Moderate Assistance-helper does LESS THAN HALF the effort. [place] lifts, holds or supports trunk or limbs, but provides less than half the effort. 2-Substantial/Maximal Assistance-helper does MORE THAN HALF the effort. [place] lifts or holds trunk or limbs and provides more than half the effort. 2-Lcxxzuewo-gtfakf does ALL the effort. Patient does none of the effort to complete the activity. Or, the assistance of 2 or more helpers is required for the patient to complete the activity. If activity was not attempted, code reason: 7-Patient Refused. 9-Not Applicable-not attempted and the patient did not perform the activity before the current illness, exacerbation or injury. 10-Not Attempted due to Environmental Limitations-(lack of equipment, weather restraints, etc.). 88-Not Attempted due to Medical Conditions or Safety Concerns. Bed Mobility: 6 Transfers (B,C,W/C): 6 Gait: 6 Stairs: 6 Indoor Mobility (Ambulation): Independent Stairs: Independent Prior Devices Use: Walker (since 04/2023 due to left LE weakness) PT Evaluation-Current Subjective Patient reports 8/10 bilateral posterior knee pain and left hip pain. Pain Location: Posterior, Right, Left Location Body Site: Knee Pain Description: Tightness ROM/Strength ROM Lower Extremities bilateral LE WFL Strength Lower Extremities right knee flexion/extension 4/5;DF/PF 4/5 hip flexion 3/5 left knee flexion/extension 3/5;DF/PF 3/5; hip flexion 3-/5 Integumentary/Posture Posture WFL Neuromuscular (Tone, Coordination, Reflexes) Trendelenburg gait Sensory Vision: Wears Glasses Hand Dominance: Right Transfers Sit to Lying (QC): 4 Lying to Sitting/Side of Bed(Q: 4 Sit to Stand (QC): 3 Chair/Rvj-cw-Kirvx Xfer(QC): 3 Gait Mode of Locomotion: Walk Anticipated Mode of Locomotion: Walk Walk 10 feet (QC): 4 Walk 50 ft with 2 Turns(QC): 4 Distance: 125' Gait Assistive Device: FWW Comments/Gait Description noted fatigue with minimal activity with left LE increase in weakness with minimal distance. Balance Sitting Static: Normal Sitting Dynamic: Normal Standing Static: Fair Standing Dynamic: Fair Assessment/Needs Patient will benefit from skilled PT to address functional strength and mobility to improve current LOF to safely return to home with spouse at maximum LOF. Noted atrophy left LE due to weakness with gait disturbance. 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 Goals Time Frame: Jul 10, 2023 Roll Left & Right (QC): 6 Sit to Lying (QC): 6 Lying-Sitting on Side/Bed(QC): 6 Sit to Stand (QC): 6 Chair/Mts-vv-Lqnke Xfer(QC): 6 Toilet Transfer (QC): 6 Walk 10 feet (QC): 6 Walk 50ft with 2 Turns (QC): 6 Walk 150 ft (QC): 6 1 Step (curb) (QC): 4 4 Steps (QC): 4 12 Steps (QC): 4 PT Plan Problem List Problem List: Activity Tolerance, Functional Strength, Safety, Balance, Gait, Transfer, Bed Mobility Treatment/Plan Treatment Plan: Continue Plan of Care Treatment Plan: Bed Mobility, Education, Functional Activity Donovan, Functional Strength, Gait, Safety, Therapeutic Exercise, Transfers Treatment Duration: Jul 10, 2023 Frequency: 6 times per week Estimated Hrs Per Day: .5 hour per day Patient and/or Family Agrees t: Yes Discharge Recommendations Therapy Discharge Recommendati: Post Acute PT Time Time In: 941 Time Out: 957 DATE: Jun 29, 2023 Total Billed Treatment Time: 16 Total Billed Treatment 1 visit EVMod 16 min FAYE PARRA PT Jun 29, 2023 10:18
[2023-06-29] MEDS ORDERED: METO5TAB6 PO (10:41)
[2023-06-29] MEDS ORDERED: GABA300C PO (10:41)
[2023-06-29] MEDS ORDERED: SULF-11 PO (10:41)
[2023-06-29] MEDS ORDERED: DOXA8TAB PO (10:41)
[2023-06-29] MEDS ORDERED: UBID100C44 PO (10:41)
[2023-06-29] MEDS ORDERED: DILT180C85 PO (10:41)
[2023-06-29] MEDS ORDERED: CHOL200025 PO (10:41)
[2023-06-29] MEDS ORDERED: LIRA0.6P3 SQ (10:47)
[2023-06-29] MEDS ORDERED: POTA-330 PO (10:47)
[2023-06-29] MEDS ORDERED: ISOS30TA82 PO (10:47)
[2023-06-29 11:09] VITALS: BP 135/70
--- NOTE | 2023-06-29 11:44 | History & Physical ---
HPI History of Present Illness: Aug had L4-L5 laminectomy and did really well was up to walking a couple of miles, but in March overdid it and was pulling stumps with tractor and things, and then went down hill since. Has had 5 falls. Persistent pain in hip. Saw back surgeon who said it's not his back and sent him to Dr. Lee who said it's not his hip. He did have an L3 epidural injection about [address] Santillan which helped for about 6 hours. Started PT on Wednesday and had dry needling and pain went from 9 to a 6 which is the first time he had decrease in pain. He went to PT yesterday on his own, when he was going home, has 3 stairs up and then narrow entry that requires folding walker, which he did, but then when he turned back to close door, fell back against 7 foot shelf full of cleaning supplies and glass and plastic all over the place, but he did not have any lacerations, has a few scrapes on back and arm. Did not hit head. Had some neck pain in ER yesterday. Since March the only thing that has helped pain besides his recent PT was when the nurse practitioner from [facility] gave him steroids so they are wondering whether that might be helpful again. Fourth fall a couple of weeks ago, fell getting out of shower and got himself up and dressed and sat down, but then he had loss of sensation and paralysis below mid thigh level bilaterally. He had morphine and CT and while he was sleeping his toes started twitching and then he was able to move again eventually. Prior to all this he was out on the tractor and working in garden, etc. Has been on Ultram and tylenol for degenerative disc disease for years which was baseline, then he has been taking hydrocodone twice per day to avoid taking too tylenol, but it isn't helping. He started gabapentin recently, makes him too sleepy so he just takes it at night, 300 mg, which has been for 3-4 weeks. He isn't sure if it helps or just makes him sleepy enough to rest. Source: patient Date seen by provider: Jun 29, 2023 Time Seen by Provider: 11:44 Attending Physician Anni Askew MD PCP Admitting Physician: Mirian Silva MD Attending Physician: Mirian Silva MD Consult Date of Admission Jun 28, 2023 at 17:23 Home Medications Home Medications Reviewed patient Home Medication Reconciliation performed by pharmacy medication reconciliations cardiac cath technician and/or nursing. Patients Allergies have been reviewed. Allergies Coded Allergies: amiodarone (Verified Allergy, Severe, Anaphylaxis, 10/08/21) SYSTEMIC oxycodone (Verified Adverse Reaction, Mild, LETHARGIC, 05/27/23) WAR-Zdtjnm-Vsrsxi Hx Patient Social History Smoking Status: Former Smoker Former smoker/When Quit: Sep 13, 1974 2nd Hand Smoke Exposure: No Recent Hopitalizations: No Alcohol Use?: No (history of regular alcohol use, quit 3-4 years ago) Immunizations Up To Date Tetanus Booster (TDap): Unknown Influenza Vaccine Up-to-Date: Yes; Up-to-Date First/Initial COVID19 Vaccinat: 09/06/20 Second COVID19 Vaccination Mason: 10/04/20 Third COVID19 Vaccination Date: APRIL 2021 Past Medical History PMHx: CAD s/p stent x2 DM Type 2 Hypertension Hyperlipidemia Larios's disease DDD/chronic back pain gout BPH GERD IBS Depression SurgHx: s/p umbilical hernia repair s/p carpal tunnel repair s/p anterior compartment syndrome L leg s/p marquez knee scopes L4-L5 laminectomy CABG Rotator cuff repair x 3 Family Medical History Family History: Cardiovascular disease 19 FATHER 19 MOTHER Diabetes mellitus 19 FATHER 19 MOTHER G8 BROTHER Hypertension 19 FATHER Review of Systems ([facility]) Constitutional: No fever EENTM: No nose congestion, No throat pain Respiratory: No cough, No short of breath Cardiovascular: No chest pain Gastrointestinal: No abdominal pain; constipation; No diarrhea Genitourinary: No dysuria Musculoskeletal: see HPI, muscle weakness (left leg) Skin: No rash Reviewed Test Results Reviewed Test Results Lab Laboratory Tests Test 06/28/23 13:34 06/28/23 20:16 06/29/23 05:55 06/29/23 08:25 Range/Units Sodium Level 133 L 135 135-145 MMOL/L Potassium Level 4.1 4.5 3.6-5.0 MMOL/L Chloride Level 101 99 98-107 MMOL/L Carbon Dioxide Level 23 25 21-32 MMOL/L Anion Gap 9 11 5-14 MMOL/L Blood Urea Nitrogen 18 18 7-18 MG/DL Creatinine 1.22 1.16 0.60-1.30 MG/DL Estimat Glomerular Filtration Rate 64 68 BUN/Creatinine Ratio 15 16 Glucose Level 99 109 H 70-105 MG/DL Calcium Level 9.2 9.6 8.5-10.1 MG/DL Glucometer 100 102 70-110 MG/DL Test 06/29/23 11:03 Range/Units Glucometer 114 H 70-110 MG/DL Radiology CT chest/abdomen/pelvis: IMPRESSION: 1. No acute traumatic injury in the chest, abdomen or pelvis. 2. Old healed bilateral rib fractures. CT head/neck: IMPRESSION: 1. No hemorrhage or focal intra-axial mass. No CT evidence of large acute territorial ischemia. 2. No acute fracture or dislocation in the cervical spine. 3. Scattered areas of age-indeterminate ischemia in the left basal ganglia and left frontal lobe near the vertex. Recommend correlation with patient history and symptoms and if indicated MRI brain to further evaluate Physical Exam-([facility]) Physical Exam Vital Signs VS - Last 72 Hours, by Label 06/28/23 06/28/23 06/28/23 06/28/23 13:28 17:30 17:54 17:55 Temp 36.9 37.0 Pulse 73 76 73 Resp 16 17 B/P (MAP) 141/69 (93) 172/84 137/71 (93) Pulse Ox 96 95 94 94 O2 Delivery Room Air Room Air Room Air Room Air 06/28/23 06/28/23 06/28/23 06/29/23 19:16 20:55 23:06 03:26 Temp 36.5 36.3 36.5 Pulse 77 77 76 Resp 17 17 17 B/P (MAP) 126/61 (82) 124/70 (88) 138/74 (95) Pulse Ox 94 94 94 96 O2 Delivery Room Air Room Air Room Air Room Air 06/29/23 06/29/23 06/29/23 06/29/23 06:41 07:23 08:46 11:09 Temp 36.5 36.4 36.4 Pulse 72 77 Resp 18 18 B/P (MAP) 127/58 (81) 135/70 (91) Pulse Ox 94 94 O2 Delivery Room Air Room Air Room Air Capillary Refill : General Appearance: WD/WN, no apparent distress Respiratory: lungs clear, normal breath sounds Cardiovascular: regular rate, rhythm, no murmur Gastrointestinal: normal bowel sounds, non tender, soft Neurologic/Psychiatric: alert, normal mood/affect; No facial droop, No motor weakness Skin: normal color, warm/dry Assessment/Plan Assessment/Plan Admission Status: Observation (1) Frequent falls Status: Acute Assessment & Plan: Suspect multifactorial with chronic pain and lumbar stenosis, sounds as if precise diagnosis has been challenging, but pain generators in back and hip have been evaluated. CT head with age indeterminate ischemia in left basal ganglia and left frontal, consider MRI for further eval. PT/OT, IRF consult. (2) Lumbar spinal stenosis Status: Chronic Assessment & Plan: s/p L4-L5 laminectomy 02/2023. Following outpatient with spine surgery. Given severity of symptoms and trying to improve therapy ability, will trial prednisone burst, discussed safety concerns with repeated use as well as limited evidence for efficacy. Qualifiers: Qualified Codes: M48.062 - Spinal stenosis, lumbar region with neurogenic claudication (3) Lower extremity weakness Status: Acute Assessment & Plan: Exam at rest does not demonstrate significant weakness, he believes weakness is due to pain. Has had back imaging and hip imaging and seen Spine and general Ortho. PT as above. Qualifiers: Qualified Codes: R29.898 - Other symptoms and signs involving the musculoskeletal system (4) Diabetes mellitus Status: Chronic Assessment & Plan: Hold Victoza. Diabetic diet, SSI. Qualifiers: (5) Hyperlipidemia Status: Chronic Assessment & Plan: Resume home statin (6) Hypertension Status: Chronic Assessment & Plan: Resume home meds Qualifiers: Qualified Codes: I10 - Essential (primary) hypertension (7) NATE (obstructive sleep apnea) Status: Chronic (8) CHF (congestive heart failure) Status: Acute (9) Coronary artery disease without angina pectoris Status: Chronic (10) Obesity (11) DVT prophylaxis Status: Acute Assessment & Plan: Enoxaparin MIRIAN SILVA MD Jun 29, 2023 11:44
[2023-06-29] MEDS: predniSONE 20 MG TABLET PO SCH (12:41)
[2023-06-29] MEDS: PREGABALIN 75 MG CAPSULE PO SCH (12:41)
[2023-06-29 15:57] VITALS: BP 141/72
--- NOTE | 2023-06-29 15:59 | Diagnostic Imaging Report ---
Clinical Indication: Patient is status post fall. Patient with abnormal area on CT. Exam: MRI of the brain performed without IV contrast. Sequences include axial DWI, ADC map, axial T1, axial T2, axial FLAIR, axial gradient echo, sagittal T1. Comparison: CT scan of the head and cervical spine without contrast dated 06/28/2023. Findings: There is no evidence of acute cerebral infarct, intracranial hemorrhage, or gross mass effect. The brain parenchymal volume appears appropriate for patient's age. There are multiple focal and patchy areas of high T2 signal white matter changes involving both cerebral hemispheres, likely related to chronic small vessel ischemic disease. There is a small area of cortical increased FLAIR signal involving the high parasagittal posterior left frontal lobe/precentral gyrus region concerning for small chronic infarct. There is normal gallardo-white matter distinction. There is no significant midline shift or herniation. There is abnormal flow void appearance of the intradural right vertebral artery with increased signal. Remainder of the visualized [place] vascular structures show no other significant abnormality. The pituitary gland, sella, and suprasellar regions are unremarkable as visualized. There is no evidence of hydrocephalus. The basal cisterns are unremarkable. The skull, extracranial soft tissue, and orbits are unremarkable. The paranasal sinuses are unremarkable. Temporal bones show no significant abnormality. IMPRESSION: 1: There is no evidence of acute intracranial process. 2: There is loss of flow void signal involving the intradural right vertebral artery. Unable to determine if this is due to slow flow artifact or occlusion. CT angiogram of the head and neck would better evaluate. 3: There is chronic small vessel ischemic disease. 4: There is a small cortical chronic infarct involving the parasagittal high posterior left frontal lobe region. Dictated by: Dictated on workstation # [id number]
[2023-06-29] MEDS: ENOXAPARIN 40 MG/0.4 ML SYRINGE SC SCH (17:25)
[2023-06-29 19:19] VITALS: BP 137/67
[2023-06-29] MEDS ORDERED: NON-FORMULARY MEDICATION 1 EA EA (Desvenlafaxine Succinate (Desvenlafaxine Succinate ER) 5 PO SCH (21:00)
[2023-06-29] MEDS ORDERED: NON-FORMULARY MEDICATION 1 EA EA (Sulfamethoxazole/Trimethoprim (Sulfamethoxazole-Tmp Ss T PO SCH (21:00)
[2023-06-29] MEDS: DOCUSATE SODIUM 100 MG CAPSULE PO SCH (21:08)
[2023-06-29] MEDS: traZODone 50 MG (DESYREL) TAB PO SCH (21:13)
[2023-06-29 23:34] VITALS: BP 120/65
[2023-06-30 03:27] VITALS: BP 129/70
[2023-06-30] MEDS: inSUlin ASPART 1 UNIT/0.01 ML (PER UNIT) SC SCH ×4 (06:03→20:45)
[2023-06-30] MEDS: predniSONE 20 MG TABLET PO SCH (06:13)
[2023-06-30] MEDS: ACETAMINOPHEN 500 MG TABLET PO SCH ×3 (06:13→21:31)
[2023-06-30 07:18] VITALS: BP 165/70
[2023-06-30] MEDS: VITAMIN D3 25 MCG (1,000 UNITS) TABLET PO SCH (08:26)
[2023-06-30] MEDS: meTOprolol TARTRATE (IR) 50 MG TABLET PO SCH ×2 (08:26→20:43)
[2023-06-30] MEDS: POTASSIUM CHLORIDE 20 MEQ TABLET PO SCH ×2 (08:26→16:53)
[2023-06-30] MEDS: dilTIAZem ER 180 MG CAPSULE PO SCH (08:26)
[2023-06-30] MEDS: ALLOPURINOL 100 MG TABLET PO SCH ×2 (08:26→20:44)
[2023-06-30] MEDS: PANTOPRAZOLE 40 MG TABLET PO SCH ×2 (08:26→20:42)
[2023-06-30] MEDS: FUROSEMIDE 40 MG TABLET PO SCH (08:26)
[2023-06-30] MEDS: ISOSORBIDE MONONITRATE 30 MG TABLET PO SCH (08:27)
[2023-06-30] MEDS: MAGNESIUM OXIDE 400 MG TABLET PO SCH (08:27)
[2023-06-30] MEDS: PREGABALIN 75 MG CAPSULE PO SCH (08:27)
[2023-06-30] MEDS: ASPIRIN enteric coated 81MG TABLET PO SCH (08:27)
[2023-06-30] MEDS ORDERED: BREXPIPRAZOLE 1 MG PO SCH (09:00)
[2023-06-30] MEDS ORDERED: NON-FORMULARY MEDICATION 1 EA EA (Magnesium Oxide 400 MG) PO SCH (09:00)
[2023-06-30] MEDS ORDERED: NON-FORMULARY MEDICATION 1 EA EA (Cholecalciferol (Vitamin D3) (Vitamin D3) 50 MCG) PO SCH (09:00)
[2023-06-30] MEDS ORDERED: METOLAZONE 5 MG PO SCH (09:00)
[2023-06-30] MEDS ORDERED: NON-FORMULARY MEDICATION 1 EA EA (Ubidecarenone (Co Q-10) 100 MG) PO SCH (09:00)
--- NOTE | 2023-06-30 10:44 | Occ Therapy Progress Note ---
Therapy Progress Note On arrival, patient and spouse report transfer to ARU. No transfer indicated in chart while OT in patient room. OT communicated w/ ARU and patient acceptance is pending [facility] AUTH. Patient would like a shower however not if going to ARU. OT will monitor and return if warranted DORON BRICE OT Jun 30, 2023 10:44
[2023-06-30 11:21] VITALS: BP 126/74
[2023-06-30] MEDS ORDERED: CATHETER FLUSH 10 ML SYR IV PRN (14:30)
[2023-06-30] MEDS ORDERED: IOHEXOL 350 MG/ML 100 ML (OMNIPAQUE 350) VIAL IV ONE (14:30)
[2023-06-30] MEDS ORDERED: NS 100 ML (IVPB) BAG IV ONE (14:30)
[2023-06-30] MEDS ORDERED: HOLD METFORMIN - RECEIVED CONTRAST 20 ML VIAL IV SCH (14:30)
--- NOTE | 2023-06-30 15:30 | Occupational Ther Daily Note ---
OT Current Status-Daily Note Subjective Patient request shower skills assessment, ARU transfer pending appeal Pain Location: No Pain Reported Mental Status/Objective Patient Orientation: Person, Place, Time, Situation Attachments: IV (port only, not attached) ADL-Treatment Ambulated to shower w/ socks, gown and undergarment w/ FWW and SBA. Turn and ba ck to prepared shower bench, scoot across bench and disrobe in shower. Uses GBS for stability when standing to doff undergarment. Socks removed last for fall reduction techniques.OT educated patient on fall reduction nd safety measures. Patient completed shower w/ assistance for back and feet washing only..Long handle bath sponge/brush would allow indepennce in shower. OT assisted in sock donning /t mist feet. Returned ot recliner to complete UB garment as patient unsafely attempted to dress shirt overhead in standing. Therapy Code Descriptions/Definitions Functional [place] Measure: 0=Not Assessed/NA 4=Minimal Assistance 1=Total Assistance 5=Supervision or Setup 2=Maximal Assistance 6=Modified [place] 3=Moderate Assistance 7=Complete IndependenceSCALE: Activities may be completed with or without assistive devices. 3-Hxyczyiqul-mckvmnd completes the activity by him/herself with no assistance from a helper. 5-Set-up or Clean-up Assistance-helper sets up or cleans up; patient completes activity. [place] assists only prior to or following the activity. 4-Supervision or Touching Assistance-helper provides verbal cues and/or touching/steadying and/or contact guard assistance as patient completes activity. Assistance may be provided throughout the activity or intermittently. 3-Partial/Moderate Assistance-helper does LESS THAN HALF the effort. [place] lifts, holds or supports trunk or limbs, but provides less than half the effort. 2-Substantial/Maximal Assistance-helper does MORE THAN HALF the effort. [place] lifts or holds trunk or limbs and provides more than half the effort. 9-Wxduhngpg-jmvarz does ALL the effort. Patient does none of the effort to complete the activity. Or, the assistance of 2 or more helpers is required for the patient to complete the activity. If activity was not attempted, code reason: 7-Patient Refused. 9-Not Applicable-not attempted and the patient did not perform the activity before the current illness, exacerbation or injury. 10-Not Attempted due to Environmental Limitations-(lack of equipment, weather restraints, etc.). 88-Not Attempted due to Medical Conditions or Safety Concerns. Eating (QC): 6 Oral Hygiene (QC): 6 Bathing Location: L Lower Leg (including foot), R Lower Leg (including foot) Shower/Bathe Self (QC): 3 Upper Body Dressing (QC): 4 Lower Body Dressing (QC): 5 On/Off Footwear: 3 Toileting Hygiene (QC): 5 Toilet Transfer (QC): 5 Education OT Patient Education: Correct positioning, Energy conservation, Modified ADL techniques, Progress toward Goal/Update tx plan, Purpose of tx/functional activities, Reviewed precautions, Rehab process, Safety issues, Transfer techniques, Use of adapted equipment Teaching Recipient: Patient Teaching Methods: Demonstration, Discussion Response to Teaching: Return Demonstration, Reinforcement Needed OT Food Assembler Goals Food Assembler Goals 1=Demonstrate adherence to instructed precautions during ADL tasks. 2=Patient will verbalize/demonstrate understanding of assistive devices/modifications for ADL. 3=Patient will improve strength/tolerance for activity to enable patient to perform ADL's. OT Education/Plan Problem List/Assessment Assessment: Decreased Activ Tolerance, Decreased Safety Aware, Impaired Funct Balance, Impaired Self-Care Skills Discharge Recommendations Plan/Recommendations: Continue POC Treatment Plan/Plan of Care Treatment,Training & Education: Yes Patient would benefit from OT for education, treatment and training to promote independence in ADL's, mobility, safety and/or upper extremity function for ADL's. Plan of Care: ADL Retraining, Functional Mobility, Group Exercise/Act as Ind, UE Funct Exercise/Act Treatment Duration: Jul 02, 2023 Frequency: 3 times per week (3-5 times per week) Estimated Hrs Per Day: .25 hour per day Rehab Potential: Fair Time Start Time: 14:20 Stop Time: 14:38 DATE: Jun 30, 2023 Total Time Billed (hr/min): 18 Billed Treatment Time ADL 18 min DORON BRICE OT Jun 30, 2023 15:30
--- NOTE | 2023-06-30 16:03 | Physical Therapy Daily Note ---
PT Daily Note-Current Subjective Patient sitting in chair upon PT arrival, agreeable to treatment. Rates his pain at 1/10 currently in his Low back and hips. Patients reports she just took him for a walk of ~ 100 feet. Pain Section J - Health Conditions 1. Rarely or not at all 2. Occasionally 3. Frequently 4. Almost constantly 8. Unable to answer Pain Effect on Sleep: 2 Pain Interference with Therapy: 2 Pain Interference w/Day-to-Day: 2 Transfers SCALE: Activities may be completed with or without assistive devices. 4-Eygltupjhu-zomgpwa completes the activity by him/herself with no assistance from a helper. 5-Set-up or Clean-up Assistance-helper sets up or cleans up; patient completes activity. [place] assists only prior to or following the activity. 4-Supervision or Touching Assistance-helper provides verbal cues and/or touching/steadying and/or contact guard assistance as patient completes activity. Assistance may be provided throughout the activity or intermittently. 3-Partial/Moderate Assistance-helper does LESS THAN HALF the effort. [place] lifts, holds or supports trunk or limbs, but provides less than half the effort. 2-Substantial/Maximal Assistance-helper does MORE THAN HALF the effort. [place] lifts or holds trunk or limbs and provides more than half the effort. 6-Pwwjsquxu-wcfebw does ALL the effort. Patient does none of the effort to complete the activity. Or, the assistance of 2 or more helpers is required for the patient to complete the activity. If activity was not attempted, code reason: 7-Patient Refused. 9-Not Applicable-not attempted and the patient did not perform the activity before the current illness, exacerbation or injury. 10-Not Attempted due to Environmental Limitations-(lack of equipment, weather restraints, etc.). 88-Not Attempted due to Medical Conditions or Safety Concerns. Exercises Supine Ex: Ankle pumps, Quad Set, Glut sets Supine Reps: 20 Seated Therapy Exercises: Long arc quads, Hip flexion, Hamstring Curls, Hip abd/add Seated Reps: 20 Assessment Current Status: Fair Progress Patient had just returned to room from ambulating with his . Performed LE therapeutic exercise as listed above. Patient in chair post treatment with all needs met, nursing notified, call light in hand. PT Anesthesiologist Attending Goals Anesthesiologist Attending Goals PT Anesthesiologist Attending Goals Time Frame: Jul 10, 2023 Roll Left & Right (QC): 6 Sit to Lying (QC): 6 Lying-Sitting on Side/Bed(QC): 6 Sit to Stand (QC): 6 Chair/Lel-xy-Nmzcz Xfer(QC): 6 Toilet Transfer (QC): 6 Walk 10 feet (QC): 6 Walk 50ft with 2 Turns (QC): 6 Walk 150 ft (QC): 6 1 Step (curb) (QC): 4 4 Steps (QC): 4 12 Steps (QC): 4 PT Plan Treatment/Plan Treatment Plan: Continue Plan of Care Treatment Plan: Bed Mobility, Education, Functional Activity [place], Functional Strength, Gait, Safety, Therapeutic Exercise, Transfers Treatment Duration: Jul 10, 2023 Frequency: 6 times per week Estimated Hrs Per Day: .5 hour per day Patient and/or Family Agrees t: Yes Time Time In: 1527 Time Out: 1537 DATE: Jun 30, 2023 Total Billed Treatment Time: 10 Total Billed Treatment Visit, EX EMRE GARCIA PT Jun 30, 2023 16:03
[2023-06-30 16:14] VITALS: BP 118/62
[2023-06-30] MEDS: ENOXAPARIN 40 MG/0.4 ML SYRINGE SC SCH (16:53)
--- NOTE | 2023-06-30 16:56 | Diagnostic Imaging Report ---
PROCEDURE: CT angiography of the head and CT angiography of the neck with and without contrast. TECHNIQUE: Contiguous noncontrast images were obtained from the skull base through the vertex. After intravenous contrast administration, helical CT angiography of the neck was performed. Source data was reformatted into 3D MIP projections. Delayed post contrast acquisition was also obtained. Auto Exposure Controls were utilized during the CT exam to meet ALARA standards for radiation dose reduction. INDICATION: Evaluate for possible vertebral artery occlusion. Abnormality seen on brain MRI. COMPARISON: MRI brain on 06/29/2023. FINDINGS: CTA Neck: The visualized portions of the aortic arch demonstrate no evidence of aneurysm or dissection. There is conventional branching pattern of the great vessels of the aorta. The brachiocephalic artery is normal in course and caliber. The right and left common carotid origins are unremarkable. The origin of the left subclavian artery is patent. The common carotid arteries and internal carotid arteries demonstrate a mildly tortuous course. There is calcified atherosclerotic plaque in the bilateral carotid bulbs and proximal internal carotid arteries without flow-limiting stenosis. No evidence of dissection in the carotid systems. The external carotid arteries are patent and unremarkable. The left vertebral artery is dominant. The origin of the right vertebral artery is seen and is unremarkable. The origin of the left vertebral artery is seen and is unremarkable. There is no focal stenosis seen within the neck. There is no dissection. The osseous structures of the cervical spine are unremarkable. Included views through the lung apices demonstrate no focal consolidation. CTA brain: Atherosclerotic plaque is seen in the [place] of the bilateral terminal internal carotid arteries without significant stenosis. No stenosis is seen in the bilateral anterior, middle, and posterior cerebral arteries. No evidence of aneurysm the [place]. There is occlusion of the V4 segment of the right vertebral artery secondary to atherosclerotic plaque. There is collateral filling of the right PICA via the left PICA. The left vertebral artery is visualized to the basilar artery. The basilar artery is normal in course and caliber. The terminal branch vessels including the superior cerebellar arteries unremarkable. IMPRESSION: 1. 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 Findings appear chronic as no evidence of acute ischemia is seen on the MRI. 2. No stenosis is seen in the left vertebral artery. 3. No stenosis or aneurysm in the [place]. No large vessel occlusion. 4. No stenosis or dissection in the bilateral carotid systems. Dictated by: Dictated on workstation # [id number]
--- NOTE | 2023-06-30 17:06 | Progress Note ---
Subjective Subjective/Events-last exam Afebrile, no acute events, feeling better, pain is decreased. Objective Exam Last Set of Vital Signs Vital Signs Date Time Temp Pulse Resp B/P (MAP) Pulse Ox O2 Delivery O2 Flow Rate FiO2 06/30/23 16:14 36.0 71 16 118/62 (80) 97 Room Air Capillary Refill : I&O Intake and Output 06/29/23 23:59 Intake Total 1690 ml Output Total 950 ml Balance 740 ml Intake Oral 1690 ml Output Urine Total 950 ml # Voids 4 # Bowel Movements 1 General: Alert, No Acute Distress Lungs: Clear to Auscultation, Normal Air Movement Heart: Regular Rate, No Murmurs Abdomen: Normal Bowel Sounds, Soft Neuro: Normal Speech, Strength at 5/5 X4 Ext Results/Procedures Lab Laboratory Tests 06/29/23 20:31: Glucometer 278H 06/30/23 05:32: Glucometer 110 06/30/23 10:13: Glucometer 160H 06/30/23 16:13: Glucometer 179H Radiology CT chest/abdomen/pelvis: IMPRESSION: 1. No acute traumatic injury in the chest, abdomen or pelvis. 2. Old healed bilateral rib fractures. CT head/neck: IMPRESSION: 1. No hemorrhage or focal intra-axial mass. No CT evidence of large acute territorial ischemia. 2. No acute fracture or dislocation in the cervical spine. 3. Scattered areas of age-indeterminate ischemia in the left basal ganglia and left frontal lobe near the vertex. Recommend correlation with patient history and symptoms and if indicated MRI brain to further evaluate Assessment/Plan Assessment/Plan (1) Frequent falls Status: Acute Assessment & Plan: Suspect multifactorial with chronic pain and lumbar stenosis, sounds as if precise diagnosis has been challenging, but pain generators in back and hip have been evaluated. CT head with age indeterminate ischemia in left basal ganglia and left frontal, consider MRI for further eval. PT/OT, IRF consult. 06/30- MRI does show left frontal cortex chronic ischemic stroke. IRF denied by insurance, appealing. (2) Lumbar spinal stenosis Status: Chronic Assessment & Plan: s/p L4-L5 laminectomy 02/2023. Following outpatient with spine surgery. Given severity of symptoms and trying to improve therapy ability, will trial prednisone burst, discussed safety concerns with repeated use as well as limited evidence for efficacy. 06/30 pain improved with Lyrica and prednisone Qualifiers: Qualified Codes: M48.062 - Spinal stenosis, lumbar region with neurogenic claudication (3) Lower extremity weakness Status: Acute Assessment & Plan: Exam at rest does not demonstrate significant weakness, he believes weakness is due to pain. Has had back imaging and hip imaging and seen Spine and general Ortho. PT as above. Qualifiers: Qualified Codes: R29.898 - Other symptoms and signs involving the musculoskeletal system (4) Diabetes mellitus Status: Chronic Assessment & Plan: Hold Victoza. Diabetic diet, SSI. Qualifiers: (5) Hyperlipidemia Status: Chronic Assessment & Plan: Resume home statin (6) Hypertension Status: Chronic Assessment & Plan: Resume home meds Qualifiers: Qualified Codes: I10 - Essential (primary) hypertension (7) NATE (obstructive sleep apnea) Status: Chronic (8) CHF (congestive heart failure) Status: Acute (9) Coronary artery disease without angina pectoris Status: Chronic (10) Obesity (11) History of ischemic stroke Status: Chronic (12) DVT prophylaxis Status: Acute Assessment & Plan: Enoxaparin MIRIAN SILVA MD Jun 30, 2023 17:06
[2023-06-30 19:59] VITALS: BP 137/62
[2023-06-30] MEDS: traZODone 50 MG (DESYREL) TAB PO SCH (20:42)
[2023-06-30] MEDS: DOCUSATE SODIUM 100 MG CAPSULE PO SCH (20:42)
[2023-06-30] MEDS ORDERED: Sulfamethoxazole/Trimethoprim DS TABLET PO SCH (21:00)
[2023-06-30 23:09] VITALS: BP 122/72
[2023-07-01 03:22] VITALS: BP 116/66
[2023-07-01] MEDS: predniSONE 20 MG TABLET PO SCH (05:30)
[2023-07-01] MEDS: ACETAMINOPHEN 500 MG TABLET PO SCH ×2 (05:30→14:30)
[2023-07-01] MEDS: inSUlin ASPART 1 UNIT/0.01 ML (PER UNIT) SC SCH ×2 (05:46→11:46)
[2023-07-01 07:14] VITALS: BP 123/65
[2023-07-01] MEDS: ISOSORBIDE MONONITRATE 30 MG TABLET PO SCH (08:07)
[2023-07-01] MEDS: ALLOPURINOL 100 MG TABLET PO SCH (08:07)
[2023-07-01] MEDS: ASPIRIN enteric coated 81MG TABLET PO SCH (08:07)
[2023-07-01] MEDS: PREGABALIN 75 MG CAPSULE PO SCH (08:07)
[2023-07-01] MEDS: MAGNESIUM OXIDE 400 MG TABLET PO SCH (08:08)
[2023-07-01] MEDS: meTOprolol TARTRATE (IR) 50 MG TABLET PO SCH (08:08)
[2023-07-01] MEDS: POTASSIUM CHLORIDE 20 MEQ TABLET PO SCH (08:08)
[2023-07-01] MEDS: VITAMIN D3 25 MCG (1,000 UNITS) TABLET PO SCH (08:08)
[2023-07-01] MEDS: dilTIAZem ER 180 MG CAPSULE PO SCH (08:08)
[2023-07-01] MEDS: FUROSEMIDE 40 MG TABLET PO SCH (08:08)
[2023-07-01] MEDS: PANTOPRAZOLE 40 MG TABLET PO SCH (08:08)
[2023-07-01 11:10] VITALS: BP 113/56
[2023-07-01] MEDS ORDERED: PRD20T PO (11:52)
[2023-07-01] MEDS ORDERED: PREG75CA PO (11:52)
--- NOTE | 2023-07-01 11:59 | Discharge Summary ---
Discharge Summary Instructions for Patient Assessment/Instructions Follow up with Dr. Askew within a week of discharge. Physician to follow Patient: Azar Discharge Diet for Home: ADA Diet Hospital Course Date of Admission: Jun 28, 2023 at 17:23 Admission Diagnosis : Family Physician/Provider: Anni Askew MD Date of Discharge: 07/01/23 Discharge Diagnosis: (1) Frequent falls Status: Acute Assessment & Plan: Suspect multifactorial with chronic pain and lumbar stenosis, sounds as if precise diagnosis has been challenging, but pain generators in back and hip have been evaluated. CT head with age indeterminate ischemia in left basal ganglia and left frontal, consider MRI for further eval. PT/OT, IRF consult. 06/30- MRI does show left frontal cortex chronic ischemic stroke. IRF denied by insurance, appealing, for now going home with HH. (2) Lumbar spinal stenosis Status: Chronic Assessment & Plan: s/p L4-L5 laminectomy 02/2023. Following outpatient with spine surgery. Given severity of symptoms and trying to improve therapy ability, will trial prednisone burst, discussed safety concerns with repeated use as well as limited evidence for efficacy. 06/30 pain improved with Lyrica and prednisone, discharged with Lyrica and to complete prednisone course. Qualifiers: Qualified Codes: M48.062 - Spinal stenosis, lumbar region with neurogenic claudication (3) Lower extremity weakness Status: Acute Assessment & Plan: Exam at rest does not demonstrate significant weakness, he believes weakness is due to pain. Has had back imaging and hip imaging and seen Spine and general Ortho. Improved with pain improvement. Qualifiers: Qualified Codes: R29.898 - Other symptoms and signs involving the musculoskeletal system (4) Diabetes mellitus Status: Chronic Assessment & Plan: Held Victoza. Diabetic diet, SSI. Qualifiers: (5) Hyperlipidemia Status: Chronic Assessment & Plan: Resumed home statin (6) Hypertension Status: Chronic Assessment & Plan: Resumed home meds Qualifiers: Qualified Codes: I10 - Essential (primary) hypertension (7) NATE (obstructive sleep apnea) Status: Chronic (8) CHF (congestive heart failure) Status: Acute (9) Coronary artery disease without angina pectoris Status: Chronic (10) Obesity (11) History of ischemic stroke (12) Right vertebral artery occlusion Hospital Course: See discharge diagnoses Labs and Pending Lab Test: Laboratory Tests 06/30/23 16:13: Glucometer 179H 06/30/23 20:21: Glucometer 158H 07/01/23 10:07: Glucometer 188H Home Meds Active Prednisone 20 Mg Tab 40 Mg PO DAILY@0700 Reported Potassium Chloride 20 Meq Tablet.er 20 Meq PO BID Isosorbide Mononitrate ER (Isosorbide Mononitrate) 30 Mg Tab.er.24h 30 Mg PO DAILY Victoza 3-Klever (Liraglutide) 0.6 Mg/0.1 Ml (18 Mg/3 Ml) Pen.injctr 1.2 Mg SQ DAILY Sulfamethoxazole-Tmp Ss Tablet (Sulfamethoxazole/Trimethoprim) 400 Mg-80 Mg Tablet 0.5 Ea PO HS Diltiazem 24Hr ER (Diltiazem HCl) 180 Mg Cap.er.24h 180 Mg PO DAILY Cardura Xl (Doxazosin Mesylate) 8 Mg Tab.er.24 8 Mg PO BID Metolazone 5 Mg Tablet 5 Mg PO DAILY Neurontin (Gabapentin) 300 Mg Capsule 300 Mg PO HS Vitamin D3 (Cholecalciferol (Vitamin D3)) 50 Mcg (2000 Unit) Tablet 50 Mcg PO DAILY Co Q-10 (Ubidecarenone) 100 Mg Capsule 100 Mg PO DAILY Hydrocodone-Acetamin 5-325 mg (Hydrocodone/Acetaminophen) 5 Mg-325 Mg Tablet 1 Ea PO BID Docusate Sodium 100 Mg Capsule 100 Mg PO HS Magnesium Oxide 400 Mg Tablet 400 Mg PO DAILY Atorvastatin Calcium 80 Mg Tablet 40 Mg PO HS TAKES OF A 40MG TAB Desvenlafaxine Succinate ER (Desvenlafaxine Succinate) 50 Mg Tab.er.24h 50 Mg PO HS Aspirin EC (Aspirin) 81 Mg Tablet.dr 81 Mg PO DAILY Lisinopril 40 Mg Tablet 40 Mg PO HS Rexulti (Brexpiprazole) 1 Mg Tablet 1 Mg PO DAILY Tramadol HCl 50 Mg Tablet 100 Mg PO HS TAKES 2 (50MG) TABS Trazodone HCl 50 Mg Tablet 50 Mg PO HS Dexilant (Dexlansoprazole) 60 Mg Cap.dr.bp 60 Mg PO BID Tramadol HCl 50 Mg Tablet 50 Mg PO DAILY Tylenol Extra Strength (Acetaminophen) 500 Mg Tablet 1,000 Mg PO BID TAKES 2 (500MG) TABS Allopurinol 100 Mg Tablet 100 Mg PO BID Furosemide 40 Mg Tablet 40 Mg PO DAILY Metoprolol Tartrate 100 Mg Tablet 100 Mg PO BID Patient Allergies: Coded Allergies: amiodarone (Verified Allergy, Severe, Anaphylaxis, 10/08/21) SYSTEMIC oxycodone (Verified Adverse Reaction, Mild, LETHARGIC, 05/27/23) Height (Feet): 6 Height (Inches): 0.00 Weight (Pounds): 247 Weight (Ounces): 0.0 Home Health Need/Face to Face Date of Face to Face: Jul 01, 2023 Clinical Findings: Generalized weakness and fatigue I have seen Pt [id number]: Yes Discharged To: Home Diagnosis/Conditions: (1) Frequent falls (2) Lumbar spinal stenosis (3) Lower extremity weakness (4) Diabetes mellitus (5) Hyperlipidemia (6) Hypertension (7) NATE (obstructive sleep apnea) (8) CHF (congestive heart failure) (9) Coronary artery disease without angina pectoris (10) Obesity (11) History of ischemic stroke Patient is Homebound due to: [place] fall risk due to instabilty, Pain w/ambulation Homebound Status Due to the above stated illness, injury or surgical procedure (medical condition or diagnosis) and associated clinical findings, the patient is homebound because of his/her inability to leave home except with aid of a supportive device and/or person AND leaving the home requires a considerable and taxing effort or is medically contraindicated. Pt req the following assistanc: Aid of another person Home Health Infusion Therapy Line Start Date: Jun 28, 2023 Certify Stmt I certify that this patient is under my care and that I, a nurse practitioner or a physician; a assistant professor of education working with me, had a face to face encounter that - meets the physician face to face encounter requirements with this patient as dated. Discharge Physical Exam General: Alert, No Acute Distress Lungs: Clear to Auscultation Heart: Regular Rate Abdomen: Normal Bowel Sounds, Soft Extremities: No Edema Neuro: Normal Speech Psych/Mental Status: Mental Status NL, Mood NL MIRIAN SILVA MD Jul 01, 2023 11:59
--- NOTE | 2023-07-01 13:07 | Occupational Ther Daily Note ---
OT Current Status-Daily Note Subjective Agreeable to participate in safety scenarios Pain Numeric Pain Scale: 2 Mental Status/Objective Patient Orientation: Person, Place, Time, Situation ADL-Treatment Performing ADL in room Mod IND w/ FWW Therapy Code Descriptions/Definitions Functional [place] Measure: 0=Not Assessed/NA 4=Minimal Assistance 1=Total Assistance 5=Supervision or Setup 2=Maximal Assistance 6=Modified [place] 3=Moderate Assistance 7=Complete IndependenceSCALE: Activities may be completed with or without assistive devices. 7-Ddocntgkuo-ivthxle completes the activity by him/herself with no assistance from a helper. 5-Set-up or Clean-up Assistance-helper sets up or cleans up; patient completes activity. [place] assists only prior to or following the activity. 4-Supervision or Touching Assistance-helper provides verbal cues and/or touching/steadying and/or contact guard assistance as patient completes activity. Assistance may be provided throughout the activity or intermittently. 3-Partial/Moderate Assistance-helper does LESS THAN HALF the effort. [place] lifts, holds or supports trunk or limbs, but provides less than half the effort. 2-Substantial/Maximal Assistance-helper does MORE THAN HALF the effort. [place] lifts or holds trunk or limbs and provides more than half the effort. 4-Teo[place]bkc-lsklzx does ALL the effort. Patient does none of the effort to complete the activity. Or, the assistance of 2 or more helpers is required for the patient to complete the activity. If activity was not attempted, code reason: 7-Patient Refused. 9-Not Applicable-not attempted and the patient did not perform the activity before the current illness, exacerbation or injury. 10-Not Attempted due to Environmental Limitations-(lack of equipment, weather restraints, etc.). 88-Not Attempted due to Medical Conditions or Safety Concerns. Eating (QC): 6 Oral Hygiene (QC): 6 Shower/Bathe Self (QC): 5 Upper Body Dressing (QC): 6 Lower Body Dressing (QC): 6 On/Off Footwear: 6 Toileting Hygiene (QC): 6 Toilet Transfer (QC): 6 Other Treatment Stair training to enter/exit home with use of FWW in simulated environment for rrails and no rails, safety training for FWW in simulated home environment Education OT Patient Education: Energy conservation, Progress toward Goal/Update tx plan, Purpose of tx/functional activities, Reviewed precautions, Rehab process, Safety issues, Transfer techniques, Use of adapted equipment Teaching Recipient: Patient, Family Teaching Methods: Demonstration, Discussion Response to Teaching: Return Demonstration OT Carpenter Helper Goals Usp Goals 1=Demonstrate adherence to instructed precautions during ADL tasks. 2=Patient will verbalize/demonstrate understanding of assistive devic es/modifications for ADL. 3=Patient will improve strength/tolerance for activity to enable patient to perform ADL's. OT Education/Plan Problem List/Assessment Assessment: Decreased Activ Tolerance, Decreased Safety Aware Discharge Recommendations Plan/Recommendations: Discontinue OT Therapy Discharge Recommendati: Home & Family Treatment Plan/Plan of Care Treatment,Training & Education: Yes Patient would benefit from OT for education, treatment and training to promote independence in ADL's, mobility, safety and/or upper extremity function for ADL's. Plan of Care: ADL Retraining, Functional Mobility, Group Exercise/Act as Ind, UE Funct Exercise/Act Treatment Duration: Jul 02, 2023 Frequency: 3 times per week (3-5 times per week) Estimated Hrs Per Day: .25 hour per day Rehab Potential: Fair Time Start Time: 09:30 Stop Time: 09:55 DATE: Jul 01, 2023 Total Time Billed (hr/min): 25 Billed Treatment Time FA 25 min DORON BRICE OT Jul 01, 2023 13:07
[2023-07-01 15:36] VITALS: BP 113/56
[2023-07-01] MEDS ORDERED: BREXPIPRAZOLE 1 MG PO SCH (15:45)
[2023-07-01] MEDS ORDERED: NON-FORMULARY MEDICATION 1 EA EA (Ubidecarenone (Co Q-10) 100 MG) PO SCH (15:45)
== END 2023-07-01 15:41 | disposition home health service (06) ==
LOC: EDUNIT# 13:22 → ER 13:24 → 4TH 17:23 → UNDOADMOB 17:23 → INTOOBSV 17:23 → 4TH 17:42 → UNDODISOB 07-01 15:41
PROVIDERS: ADMIT Family Medicine; ATTEND Family Medicine
DX: R29.6 Repeated falls (principal); M48.061 Spinal stenosis, lumbar region without neurogenic claudication; R53.1 Weakness; E11.9 Type 2 diabetes mellitus without complications; E78.5 Hyperlipidemia, unspecified; I10 Essential (primary) hypertension; G47.33 Obstructive sleep apnea (adult) (pediatric); I50.9 Heart failure, unspecified; I25.10 Atherosclerotic heart disease of native coronary artery without angina pectoris; E66.9 Obesity, unspecified; I65.01 Occlusion and stenosis of right vertebral artery; R29.898 Other symptoms and signs involving the musculoskeletal system; W18.30XA Fall on same level, unspecified, initial encounter; Z86.73 Personal history of transient ischemic attack (TIA), and cerebral infarction without residual deficits; Z68.35 Body mass index [BMI] 35.0-35.9, adult; Z79.84 Long term (current) use of oral hypoglycemic drugs; Z87.891 Personal history of nicotine dependence
CPT/HCPCS: 70450; 70496; 70498; 70551; 71260; 72125; 72128; 72131; 74177; 80048 ×2; 82947 ×4; 96372 ×4; 96376; 97110; 97162; 97166; 97530; 97535; 99284; G0378; 36415